=== PATIENT | female | born 1955 | race Asian ===

== ENCOUNTER 2016-12-19 09:37 | Inpatient (IN) | payer MEDICAID ==
[~2016-12-19] VITALS: Ht 144.8 cm; Wt 40.0 kg
[2016-12-19] MEDS ORDERED: SODIUM CHLORIDE 0.9% 1,000 ML IV ONE ×2 (10:15→12:00)
[2016-12-19 10:53] LABS: Basophils # (auto) 0 uL; CONDITION Y; DEFINITIVE SEE PRINTOUT; Eosinophils # (auto) 0 uL; Hematocrit 28.3 % (36.0-46.0); Hemoglobin 9.8 g/dL (12.2-16.2); Lymphocytes # (auto) 0.7 uL; Lymphocytes % (auto) 5.7 % (10.0-50.0); Mean Corpuscular Hgb Conc. 34.7 g/dL (32.0-36.0); Mean Corpuscular Volume 86.4 fL (80.0-100.0); Mean Platelet Volume 11.5 fL (7.4-10.4); Monocytes # (auto) 0.1 uL; Monocytes % (auto) 0.7 % (0.0-12.0); Neutrophils # (auto) 10.8 uL; Neutrophils % (auto) 93.6 % (37.0-80.0); Platelet Count (auto) 60 10^3/uL (140-450); Red Cell Distribution Width 13.1 % (11.6-16.0); SUSPECT SEE PRINTOUT; White Blood Cell 11.5 10^3/uL (4.4-10.8)
[2016-12-19 11:02] LABS: Albumin 1.9 g/dL (3.4-5.0); Anion Gap 14 (5-15); Calcium 7.1 mg/dL (8.5-10.1); Carbon Dioxide 20 mmol/L (21-32); Chloride 98 mmol/L (98-107); Potassium 4.3 mmol/L (3.5-5.1); Sodium 132 mmol/L (136-145)
[2016-12-19 11:05] LABS: Aspartate Aminotransferase 39 U/L (15-37); BUN/Creatinine Ratio 25.5; Blood Urea Nitrogen 69 mg/dL (7-18); GFR African American 23 mL/min; GFR Non-African American 19 mL/min; Glucose 391 mg/dL (74-106)
[2016-12-19 11:10] LABS: Alkaline Phosphatase 317 U/L (45-117); Bilirubin, Total 0.9 mg/dL (0.2-1.0); Total Protein 5.4 g/dL (6.4-8.2)
[2016-12-19 12:59] LABS: INR 1.07 (0.9-1.15); Prothrombin Time 11.7 sec (9.37-12.3)
[2016-12-19 13:00] LABS: Magnesium 2.2 mg/dL (1.6-2.6)
[2016-12-19] MEDS ORDERED: ONDANSETRON HCL 4 MG/2 ML VIAL IV ONE (13:00)
[2016-12-19 13:04] LABS: Lactic Acid w/Reflex 2.5 mmol/L (0.4-2.0)
[2016-12-19 13:05] LABS: REFLEX LACTIC ACID YES OR NO YES
[2016-12-19] MEDS: NOREPINEPHRINE BITARTRATE 250 ML IV SCH (13:40)
[2016-12-19 14:09] LABS: Urine Color Yellow (Yellow); Urine Hyaline Cast MOD /lpf (0 - 2); Urine Ketone Negative (Negative); Urine Nitrite Negative (Negative); Urine RBC 15 /hpf (0 - 4); Urine Urobilinogen Normal (Negative)
[2016-12-19 14:15] LABS: Urine Blood 1+ /uL (Negative); Urine Glucose 3+ mg/dL (Normal)
[2016-12-19 14:21] LABS: Urine Bilirubin Negative (Negative)
[2016-12-19] MEDS ORDERED: NITROGLYCERIN 0.4 MG SL TAB SL PRN (15:30)
[2016-12-19] MEDS ORDERED: TEMAZEPAM 15 MG CAP PO PRN (15:30)
[2016-12-19] MEDS ORDERED: SODIUM CHLORIDE 0.9% 2,000 ML IV ONE (15:30)
[2016-12-19] MEDS ORDERED: LORazepam 0.5 MG TAB PO PRN (15:30)
[2016-12-19] MEDS ORDERED: PANTOPRAZOLE 40 MG/10 ML VIAL IV ONE (15:30)
[2016-12-19] MEDS ORDERED: MORPHINE SULF INJ 2 MG/ML SYRINGE 1ML IV PRN (15:30)
[2016-12-19] MEDS ORDERED: DEXTROSE (50%) 50ML SYRG IV PRN (15:30)
[2016-12-19] MEDS ORDERED: cefTRIAXone 1GM/50ML D5W 50 ML IV ONE (15:30)
[2016-12-19] MEDS ORDERED: LACTULOSE 20Gm/30ML SOLN PO PRN (15:30)
[2016-12-19 15:56] LABS: Amylase 46 U/L (25-115)
[2016-12-19] MEDS: SODIUM CHLORIDE 0.9% 1,000 ML IV SCH ×2 (16:49→22:02)
[2016-12-19] MEDS: ACCU-CHEK COMFORT CURVE STRIP VI SCH ×2 (17:44→20:13)
[2016-12-19] MEDS: InsuLIN REG 1unit/0.01ml Soln (100units/ml) SC SCH ×2 (17:44→22:13)
[2016-12-19 18:47] LABS: Hematocrit 29.2 % (36.0-46.0)
[2016-12-19] MEDS: PROMETHAZINE HCL 25 MG/ML 1ML IV PRN (19:32)
[2016-12-20] VITALS (12 sets, daily range): BP systolic 81–126; BP diastolic 40–70
[2016-12-20 00:31] LABS: Hematocrit 31.6 % (36.0-46.0); Hemoglobin 10.9 g/dL (12.2-16.2)
[2016-12-20] MEDS: InsuLIN REG 1unit/0.01ml Soln (100units/ml) SC SCH ×6 (02:00→21:41)
[2016-12-20] MEDS: ACCU-CHEK COMFORT CURVE STRIP VI SCH ×6 (02:00→21:41)
[2016-12-20] MEDS: SODIUM CHLORIDE 0.9% 1,000 ML IV SCH ×3 (04:38→17:11)
[2016-12-20 06:16] LABS: CONDITION Y; DEFINITIVE SEE PRINTOUT; Hematocrit 29.9 % (36.0-46.0); Hemoglobin 10.4 g/dL (12.2-16.2); Mean Corpuscular Hemoglobin 30.8 pg (28.0-32.0); Mean Corpuscular Hgb Conc. 34.8 g/dL (32.0-36.0); Mean Corpuscular Volume 88.5 fL (80.0-100.0); Mean Platelet Volume 11.8 fL (7.4-10.4); Platelet Count (auto) 33 10^3/uL (140-450); Red Cell Distribution Width 13.1 % (11.6-16.0); SUSPECT SEE PRINTOUT; White Blood Cell 19.5 10^3/uL (4.4-10.8)
[2016-12-20 06:26] LABS: Metamyelocytes % 0; Myelocytes % 0; Promyelocytes % 0; Reactive Lymphocytes 0
[2016-12-20 06:36] LABS: Potassium 3.5 mmol/L (3.5-5.1)
[2016-12-20 06:46] LABS: Albumin 1.9 g/dL (3.4-5.0); BUN/Creatinine Ratio 37.1
[2016-12-20 06:49] LABS: Bilirubin, Total 1.3 mg/dL (0.2-1.0); Total Protein 5.7 g/dL (6.4-8.2)
[2016-12-20] MEDS ORDERED: cefTRIAXone 1GM/50ML D5W 50 ML IV SCH ×2 (09:00)
[2016-12-20] MEDS: PANTOPRAZOLE 40 MG/10 ML VIAL IV SCH (10:12)
[2016-12-20] MEDS ORDERED: LINEZOLID 600MG/300ML 300 ML IV SCH (11:00)
[2016-12-20 11:12] LABS: Temperature: 23.3 C (20.0-25.0)
[2016-12-20] MEDS: PIPERACILLIN-TAZOB 3.375GM 100 ML IV SCH ×3 (12:33→23:44)
[2016-12-20] MEDS: NOREPINEPHRINE BITARTRATE 250 ML IV SCH (13:24)
[2016-12-20] MEDS: Boost Glucose Control 8 Ounces PO SCH ×3 (14:21→21:40)
[2016-12-20 15:58] LABS: Platelet Estimate Decreased
[2016-12-20] MEDS: PROMETHAZINE HCL 25 MG/ML 1ML IV PRN (20:53)
[2016-12-21] VITALS (93 sets, daily range): BP systolic 79–133; BP diastolic 39–88
[2016-12-21] MEDS: SODIUM CHLORIDE 0.9% 1,000 ML IV SCH ×3 (00:37→18:00)
[2016-12-21] MEDS: MORPHINE SULF INJ 2 MG/ML SYRINGE 1ML IV PRN ×3 (01:12→18:30)
[2016-12-21] MEDS: PROMETHAZINE HCL 25 MG/ML 1ML IV PRN ×3 (01:27→18:30)
[2016-12-21] MEDS: ACCU-CHEK COMFORT CURVE STRIP VI SCH ×6 (01:30→23:15)
[2016-12-21] MEDS: InsuLIN REG 1unit/0.01ml Soln (100units/ml) SC SCH ×6 (01:30→23:25)
[2016-12-21 04:34] LABS: Albumin 1.5 g/dL (3.4-5.0); BUN/Creatinine Ratio 39.8; Bilirubin, Total 0.6 mg/dL (0.2-1.0); Calcium 7.1 mg/dL (8.5-10.1); Magnesium 2.3 mg/dL (1.6-2.6); Phosphorus 1.1 mg/dL (2.5-4.90); Total Protein 5.3 g/dL (6.4-8.2)
[2016-12-21 04:35] LABS: CONDITION Y; DEFINITIVE SEE PRINTOUT; Hemoglobin 10.2 g/dL (12.2-16.2); Mean Corpuscular Hemoglobin 30.3 pg (28.0-32.0); Mean Corpuscular Hgb Conc. 34.1 g/dL (32.0-36.0); Mean Corpuscular Volume 88.8 fL (80.0-100.0); Mean Platelet Volume 10.6 fL (7.4-10.4); Red Cell Distribution Width 13.4 % (11.6-16.0); SUSPECT SEE PRINTOUT; White Blood Cell 12.1 10^3/uL (4.4-10.8)
[2016-12-21 05:36] LABS: Potassium 2.9 mmol/L (3.5-5.1)
[2016-12-21 06:00] LABS: Metamyelocytes % 0; Myelocytes % 0; Platelet Count (auto) 20 10^3/uL (140-450); Promyelocytes % 0; Reactive Lymphocytes 0
[2016-12-21] MEDS ORDERED: POTASSIUM CHL 10% (20 MEQ/15ML) 15ml ORAL SOLN PO ONE (06:00)
[2016-12-21 06:02] LABS: Platelet Estimate Markedly Decreased; RBC Morphology Normal
[2016-12-21] MEDS: Boost Glucose Control 8 Ounces PO SCH ×4 (06:06→22:00)
[2016-12-21] MEDS: PIPERACILLIN-TAZOB 3.375GM 100 ML IV SCH ×3 (06:06→18:34)
[2016-12-21] MEDS: NOREPINEPHRINE BITARTRATE 250 ML IV SCH (08:00)
[2016-12-21] MEDS: PANTOPRAZOLE 40 MG/10 ML VIAL IV SCH (10:22)
[2016-12-21 16:07] LABS: Uric Acid 5.8 mg/dL (2.6-6.0)
[2016-12-22] VITALS (65 sets, daily range): BP systolic 85–146; BP diastolic 40–91
[2016-12-22] MEDS: ACCU-CHEK COMFORT CURVE STRIP VI SCH ×6 (02:00→21:35)
[2016-12-22] MEDS: InsuLIN REG 1unit/0.01ml Soln (100units/ml) SC SCH ×6 (02:00→22:12)
[2016-12-22 03:55] LABS: CONDITION Y; DEFINITIVE SEE PRINTOUT; Hematocrit 27.9 % (36.0-46.0); Hemoglobin 9.7 g/dL (12.2-16.2); Mean Corpuscular Hemoglobin 30.3 pg (28.0-32.0); Mean Corpuscular Hgb Conc. 34.8 g/dL (32.0-36.0); Mean Corpuscular Volume 87.1 fL (80.0-100.0); Mean Platelet Volume 9.9 fL (7.4-10.4); Platelet Count (auto) 24 10^3/uL (140-450); Red Cell Distribution Width 13.4 % (11.6-16.0); SUSPECT SEE PRINTOUT; White Blood Cell 10.3 10^3/uL (4.4-10.8)
[2016-12-22 04:19] LABS: Albumin 1.4 g/dL (3.4-5.0); Bilirubin, Total 0.9 mg/dL (0.2-1.0); Calcium 7.2 mg/dL (8.5-10.1); Potassium 3.1 mmol/L (3.5-5.1); Total Protein 5.4 g/dL (6.4-8.2)
[2016-12-22 04:29] LABS: Metamyelocytes % 0; Myelocytes % 0; Promyelocytes % 0; Reactive Lymphocytes 0
[2016-12-22 05:28] LABS: Hypersegmented Neutrophils Present; Platelet Estimate Markedly Decreased
[2016-12-22 05:29] LABS: RBC Morphology Normal
[2016-12-22 05:57] LABS: Vitamin B12 > 2000 pg/mL (211-911)
[2016-12-22] MEDS: Boost Glucose Control 8 Ounces PO SCH ×4 (06:00→21:35)
[2016-12-22] MEDS: PIPERACILLIN-TAZOB 3.375GM 100 ML IV SCH ×5 (06:00→23:25)
[2016-12-22] MEDS: PANTOPRAZOLE 40 MG/10 ML VIAL IV SCH (09:49)
[2016-12-22] MEDS: SODIUM CHLORIDE 0.9% 1,000 ML IV SCH ×3 (09:49→23:17)
[2016-12-22] MEDS ORDERED: metroNIDAZOLE 500 MG TAB PO ONE (10:30)
[2016-12-22] MEDS ORDERED: POTASSIUM CHLORIDE 20 MEQ, LIDOCAINE 1% (LOCAL ANESTH.) 2 ML in SODIUM CHL 0.9% 100 ML IV ONE (10:30)
[2016-12-22] MEDS: NOREPINEPHRINE BITARTRATE 250 ML IV SCH (12:18)
[2016-12-22 14:36] LABS: BUN/Creatinine Ratio 32.4; Calcium 7.2 mg/dL (8.5-10.1); Potassium 3.8 mmol/L (3.5-5.1)
[2016-12-22] MEDS: HYDROcodone-ACET 5/325MG TAB PO PRN (16:26)
[2016-12-22] MEDS: PROMETHAZINE HCL 25 MG/ML 1ML IV PRN (18:30)
[2016-12-22] MEDS: metroNIDAZOLE 500 MG TAB PO SCH (19:32)
[2016-12-23] VITALS (34 sets, daily range): BP systolic 102–144; BP diastolic 54–81
[2016-12-23] MEDS: InsuLIN REG 1unit/0.01ml Soln (100units/ml) SC SCH ×6 (01:48→22:04)
[2016-12-23] MEDS: ACCU-CHEK COMFORT CURVE STRIP VI SCH ×6 (01:48→22:04)
[2016-12-23 03:20] LABS: Basophils # (auto) 0 uL; Basophils % (auto) 0.1 % (0.0-2.0); CONDITION Y; DEFINITIVE SEE PRINTOUT; Eosinophils # (auto) 0.2 uL; Eosinophils % (auto) 1.7 % (0.0-7.0); Hematocrit 28.6 % (36.0-46.0); Hemoglobin 9.9 g/dL (12.2-16.2); Lymphocytes # (auto) 0.9 uL; Lymphocytes % (auto) 7.3 % (10.0-50.0); Mean Corpuscular Hemoglobin 30.2 pg (28.0-32.0); Mean Corpuscular Hgb Conc. 34.6 g/dL (32.0-36.0); Mean Corpuscular Volume 87.3 fL (80.0-100.0); Mean Platelet Volume 11.5 fL (7.4-10.4); Monocytes # (auto) 0.5 uL; Monocytes % (auto) 4.5 % (0.0-12.0); Neutrophils # (auto) 10.3 uL; Neutrophils % (auto) 86.4 % (37.0-80.0); Platelet Count (auto) 47 10^3/uL (140-450); White Blood Cell 11.9 10^3/uL (4.4-10.8)
[2016-12-23 04:01] LABS: Albumin 1.3 g/dL (3.4-5.0); BUN/Creatinine Ratio 30.6; Bilirubin, Total 0.5 mg/dL (0.2-1.0); Calcium 7.3 mg/dL (8.5-10.1); Potassium 3.4 mmol/L (3.5-5.1); Total Protein 5.3 g/dL (6.4-8.2)
[2016-12-23] MEDS: metroNIDAZOLE 500 MG TAB PO SCH ×3 (04:43→19:33)
[2016-12-23] MEDS: PIPERACILLIN-TAZOB 3.375GM 100 ML IV SCH ×2 (06:00→12:09)
[2016-12-23] MEDS: SODIUM CHLORIDE 0.9% 1,000 ML IV SCH ×3 (06:15→19:35)
[2016-12-23] MEDS: Boost Glucose Control 8 Ounces PO SCH ×4 (06:30→22:04)
[2016-12-23] MEDS: PROMETHAZINE HCL 25 MG/ML 1ML IV PRN ×2 (08:45→19:33)
[2016-12-23] MEDS: HYDROcodone-ACET 5/325MG TAB PO PRN ×2 (08:46→17:57)
[2016-12-23] MEDS: PANTOPRAZOLE 40 MG/10 ML VIAL IV SCH (09:47)
[2016-12-23] MEDS: NOREPINEPHRINE BITARTRATE 250 ML IV SCH (13:30)
[2016-12-23] MEDS ORDERED: cefTRIAXone 1GM/50ML D5W 50 ML IV ONE (16:30)
[2016-12-24] VITALS (7 sets, daily range): BP systolic 104–137; BP diastolic 50–72
[2016-12-24] MEDS: SODIUM CHLORIDE 0.9% 1,000 ML IV SCH ×4 (02:00→22:10)
[2016-12-24 02:06] LABS: Ceruloplasmin 43.9 mg/dL (19.0-39.0); Haptoglobin 177 mg/dL (34-200)
[2016-12-24] MEDS: ACCU-CHEK COMFORT CURVE STRIP VI SCH ×4 (02:38→14:12)
[2016-12-24] MEDS: InsuLIN REG 1unit/0.01ml Soln (100units/ml) SC SCH ×4 (02:40→14:15)
[2016-12-24] MEDS: metroNIDAZOLE 500 MG TAB PO SCH ×2 (03:52→11:27)
[2016-12-24] MEDS: Boost Glucose Control 8 Ounces PO SCH ×4 (06:13→22:00)
[2016-12-24] MEDS ORDERED: cefTRIAXone 1GM/50ML D5W 50 ML IV SCH (09:00)
[2016-12-24] MEDS: PANTOPRAZOLE 40 MG/10 ML VIAL IV SCH (09:54)
[2016-12-24] MEDS ORDERED: AMPICILLIN 250 MG CAP PO SCH (18:00)
[2016-12-24] MEDS: ACETAMINOPHEN 500 MG TAB PO PRN (21:55)
[2016-12-24] MEDS: AMOXICILLIN TRIHYDRATE 250 MG CAP PO SCH (22:07)
[2016-12-25 04:43] VITALS: BP 116/62
[2016-12-25 05:42] LABS: Basophils # (auto) 0 uL; Basophils % (auto) 0.1 % (0.0-2.0); CONDITION Y; Eosinophils # (auto) 0.2 uL; Eosinophils % (auto) 1.4 % (0.0-7.0); Hematocrit 29.1 % (36.0-46.0); Hemoglobin 9.9 g/dL (12.2-16.2); Lymphocytes # (auto) 1.2 uL; Lymphocytes % (auto) 8.8 % (10.0-50.0); Mean Corpuscular Hemoglobin 29.9 pg (28.0-32.0); Mean Corpuscular Hgb Conc. 34.2 g/dL (32.0-36.0); Mean Corpuscular Volume 87.4 fL (80.0-100.0); Mean Platelet Volume 10.7 fL (7.4-10.4); Monocytes # (auto) 0.6 uL; Monocytes % (auto) 4.1 % (0.0-12.0); Neutrophils # (auto) 11.4 uL; Neutrophils % (auto) 85.6 % (37.0-80.0); Platelet Count (auto) 120 10^3/uL (140-450); Red Cell Distribution Width 13.3 % (11.6-16.0); White Blood Cell 13.4 10^3/uL (4.4-10.8)
[2016-12-25 05:59] LABS: BUN/Creatinine Ratio 22.9; Calcium 6.8 mg/dL (8.5-10.1); Potassium 3.5 mmol/L (3.5-5.1)
[2016-12-25] MEDS: SODIUM CHLORIDE 0.9% 1,000 ML IV SCH ×2 (06:12→11:17)
[2016-12-25] MEDS: AMOXICILLIN TRIHYDRATE 250 MG CAP PO SCH ×2 (06:12→13:39)
[2016-12-25] MEDS: Boost Glucose Control 8 Ounces PO SCH ×4 (06:12→22:31)
[2016-12-25 09:00] VITALS: BP 140/72
[2016-12-25 13:00] VITALS: BP 132/69
[2016-12-25] MEDS ORDERED: POTASSIUM CHL 20 Meq TABLET PO ONE (14:30)
[2016-12-25] MEDS ORDERED: ALBUMIN 25% 100 ML IV ONE (14:30)
[2016-12-25] MEDS ORDERED: FUROSEMIDE 40 MG/4 ML VIAL IV ONE (14:30)
[2016-12-25] MEDS ORDERED: DEXTROSE (50%) 50ML SYRG IV PRN (15:00)
[2016-12-25] MEDS: cefTRIAXone 1GM/50ML D5W 50 ML IV SCH (15:35)
[2016-12-25] MEDS ORDERED: metroNIDAZOLE 500MG/100ML 100 ML IV SCH (16:00)
[2016-12-25] MEDS: LIDOCAINE VISCOUS 2% 15ML UD MT PRN ×2 (16:13→22:17)
[2016-12-25 17:00] VITALS: BP 135/73
[2016-12-25] MEDS: ACCU-CHEK COMFORT CURVE STRIP VI SCH (17:28)
[2016-12-25] MEDS: InsuLIN REG 1unit/0.01ml Soln (100units/ml) SC SCH (17:28)
[2016-12-25] MEDS: PRO-STAT 64 30ML PO SCH (17:29)
[2016-12-25 21:36] VITALS: BP 148/76
[2016-12-25] MEDS: metroNIDAZOLE 500MG/100ML 100 ML IV SCH (22:16)
[2016-12-25] MEDS: INSULIN DETEMIR(LEVEMIR) 1unit/0.01ml Soln (100units/ml) SC SCH (22:32)
[2016-12-26] MEDS: InsuLIN REG 1unit/0.01ml Soln (100units/ml) SC SCH ×4 (00:26→17:53)
[2016-12-26] MEDS: ACCU-CHEK COMFORT CURVE STRIP VI SCH ×4 (00:26→17:53)
[2016-12-26] MEDS: LIDOCAINE VISCOUS 2% 15ML UD MT PRN (02:50)
[2016-12-26 04:34] VITALS: BP 145/67
[2016-12-26] MEDS: Boost Glucose Control 8 Ounces PO SCH ×4 (06:00→22:00)
[2016-12-26 06:15] LABS: BUN/Creatinine Ratio 18.6; Calcium 7.5 mg/dL (8.5-10.1)
[2016-12-26 06:24] LABS: Basophils # (auto) 0 uL; CONDITION Y; Eosinophils # (auto) 0 uL; Eosinophils % (auto) 0.3 % (0.0-7.0); Hematocrit 29.1 % (36.0-46.0); Hemoglobin 10.3 g/dL (12.2-16.2); Lymphocytes # (auto) 1.1 uL; Lymphocytes % (auto) 5.9 % (10.0-50.0); Mean Corpuscular Hemoglobin 30.2 pg (28.0-32.0); Mean Corpuscular Hgb Conc. 35.3 g/dL (32.0-36.0); Mean Corpuscular Volume 85.5 fL (80.0-100.0); Mean Platelet Volume 10.3 fL (7.4-10.4); Monocytes # (auto) 0.3 uL; Monocytes % (auto) 1.5 % (0.0-12.0); Neutrophils # (auto) 16.4 uL; Neutrophils % (auto) 92.3 % (37.0-80.0); Platelet Count (auto) 219 10^3/uL (140-450); White Blood Cell 17.7 10^3/uL (4.4-10.8)
[2016-12-26] MEDS: metroNIDAZOLE 500MG/100ML 100 ML IV SCH ×3 (06:41→22:06)
[2016-12-26] MEDS: INSULIN DETEMIR(LEVEMIR) 1unit/0.01ml Soln (100units/ml) SC SCH ×2 (06:54→22:00)
[2016-12-26] MEDS ORDERED: POTASSIUM CHL 20 Meq TABLET PO ONE (07:45)
[2016-12-26 07:55] VITALS: BP 133/61
[2016-12-26] MEDS: PRO-STAT 64 30ML PO SCH ×2 (08:00→17:53)
[2016-12-26] MEDS: CHOLECALCIFEROL (VITD3) 1,000 UNIT TAB PO SCH (09:44)
[2016-12-26] MEDS: cefTRIAXone 1GM/50ML D5W 50 ML IV SCH (09:44)
[2016-12-26] MEDS ORDERED: ENOXAPARIN SOD 40 MG/0.4 ML SYRINGE SC ONE (11:00)
[2016-12-26 11:30] VITALS: BP 145/67
[2016-12-26] MEDS ORDERED: VANCOMYCIN HCL 125MG/5ML ORAL SOL PO SCH (12:00)
[2016-12-26] MEDS: VANCOMYCIN HCL 125MG/5ML ORAL SOL PO SCH ×3 (12:11→22:06)
[2016-12-26 16:15] VITALS: BP 139/68
[2016-12-26 21:40] VITALS: BP 136/71
[2016-12-27] MEDS: ACCU-CHEK COMFORT CURVE STRIP VI SCH ×4 (00:18→18:16)
[2016-12-27 05:04] VITALS: BP 133/59
[2016-12-27 06:20] LABS: Basophils # (auto) 0 uL; CONDITION Y; Eosinophils # (auto) 0 uL; Eosinophils % (auto) 0.3 % (0.0-7.0); Hemoglobin 9.6 g/dL (12.2-16.2); Lymphocytes % (auto) 7.3 % (10.0-50.0); Mean Corpuscular Hemoglobin 30.5 pg (28.0-32.0); Mean Corpuscular Hgb Conc. 35.6 g/dL (32.0-36.0); Mean Corpuscular Volume 85.6 fL (80.0-100.0); Mean Platelet Volume 9.7 fL (7.4-10.4); Monocytes # (auto) 0.5 uL; Monocytes % (auto) 3.5 % (0.0-12.0); Neutrophils # (auto) 12.4 uL; Neutrophils % (auto) 88.9 % (37.0-80.0); Platelet Count (auto) 237 10^3/uL (140-450); Red Cell Distribution Width 12.9 % (11.6-16.0)
[2016-12-27] MEDS: InsuLIN REG 1unit/0.01ml Soln (100units/ml) SC SCH ×5 (06:30→18:16)
[2016-12-27] MEDS: metroNIDAZOLE 500MG/100ML 100 ML IV SCH (06:35)
[2016-12-27] MEDS: VANCOMYCIN HCL 125MG/5ML ORAL SOL PO SCH ×4 (06:36→22:18)
[2016-12-27] MEDS: Boost Glucose Control 8 Ounces PO SCH ×4 (06:36→22:17)
[2016-12-27 06:40] LABS: Calcium 7.1 mg/dL (8.5-10.1); Potassium 3.8 mmol/L (3.5-5.1)
[2016-12-27 06:42] LABS: BUN/Creatinine Ratio 15.4
[2016-12-27] MEDS: INSULIN DETEMIR(LEVEMIR) 1unit/0.01ml Soln (100units/ml) SC SCH ×2 (06:48→22:00)
[2016-12-27] MEDS: PRO-STAT 64 30ML PO SCH ×2 (08:00→17:51)
[2016-12-27 09:00] VITALS: BP 150/75
[2016-12-27] MEDS: cefTRIAXone 1GM/50ML D5W 50 ML IV SCH (09:38)
[2016-12-27] MEDS: CHOLECALCIFEROL (VITD3) 1,000 UNIT TAB PO SCH (09:39)
[2016-12-27] MEDS: ENOXAPARIN SOD 40 MG/0.4 ML SYRINGE SC SCH (09:39)
[2016-12-27 13:00] VITALS: BP 164/77
[2016-12-27] MEDS: metroNIDAZOLE 500 MG TAB PO SCH ×2 (15:00→22:17)
[2016-12-27 17:32] VITALS: BP 148/76
[2016-12-27 22:16] VITALS: BP 153/68
[2016-12-27] MEDS: HYDROcodone-ACET 5/325MG TAB PO PRN (22:39)
[2016-12-28] MEDS: ACCU-CHEK COMFORT CURVE STRIP VI SCH ×5 (00:14→23:36)
[2016-12-28] MEDS: MORPHINE SULF INJ 2 MG/ML SYRINGE 1ML IV PRN ×2 (00:15→09:14)
[2016-12-28 05:14] VITALS: BP 149/75
[2016-12-28 05:38] LABS: Basophils # (auto) 0 uL; Basophils % (auto) 0.3 % (0.0-2.0); CONDITION Y; Eosinophils # (auto) 0 uL; Eosinophils % (auto) 0.2 % (0.0-7.0); Hematocrit 28.1 % (36.0-46.0); Hemoglobin 9.7 g/dL (12.2-16.2); Lymphocytes # (auto) 1.1 uL; Lymphocytes % (auto) 7.7 % (10.0-50.0); Mean Corpuscular Hemoglobin 30.1 pg (28.0-32.0); Mean Corpuscular Hgb Conc. 34.4 g/dL (32.0-36.0); Mean Corpuscular Volume 87.5 fL (80.0-100.0); Mean Platelet Volume 9.7 fL (7.4-10.4); Monocytes # (auto) 0.5 uL; Monocytes % (auto) 3.8 % (0.0-12.0); Neutrophils # (auto) 12.1 uL; Platelet Count (auto) 288 10^3/uL (140-450); White Blood Cell 13.7 10^3/uL (4.4-10.8)
[2016-12-28 05:57] LABS: Albumin 1.6 g/dL (3.4-5.0); Calcium 7.2 mg/dL (8.5-10.1); Potassium 3.9 mmol/L (3.5-5.1)
[2016-12-28 05:59] LABS: BUN/Creatinine Ratio 13.5
[2016-12-28 06:02] LABS: Bilirubin, Total 0.3 mg/dL (0.2-1.0); Total Protein 5.5 g/dL (6.4-8.2)
[2016-12-28] MEDS: VANCOMYCIN HCL 125MG/5ML ORAL SOL PO SCH ×4 (06:27→21:41)
[2016-12-28] MEDS: InsuLIN REG 1unit/0.01ml Soln (100units/ml) SC SCH ×5 (06:27→23:37)
[2016-12-28] MEDS: metroNIDAZOLE 500 MG TAB PO SCH ×3 (06:27→21:41)
[2016-12-28] MEDS: INSULIN DETEMIR(LEVEMIR) 1unit/0.01ml Soln (100units/ml) SC SCH ×2 (06:35→22:15)
[2016-12-28] MEDS: ENOXAPARIN SOD 40 MG/0.4 ML SYRINGE SC SCH (09:13)
[2016-12-28] MEDS: PROMETHAZINE HCL 25 MG/ML 1ML IV PRN ×2 (09:13→15:35)
[2016-12-28] MEDS: CHOLECALCIFEROL (VITD3) 1,000 UNIT TAB PO SCH (09:14)
[2016-12-28] MEDS: cefTRIAXone 1GM/50ML D5W 50 ML IV SCH (09:15)
[2016-12-28] MEDS: Boost Glucose Control 8 Ounces PO SCH ×4 (09:33→21:40)
[2016-12-28] MEDS: PRO-STAT 64 30ML PO SCH ×2 (09:34→18:09)
[2016-12-28 12:00] VITALS: BP 149/70
[2016-12-28 17:00] VITALS: BP 140/64
[2016-12-28 22:00] VITALS: BP 143/69
[2016-12-29 04:30] VITALS: BP 128/67
[2016-12-29] MEDS: metroNIDAZOLE 500 MG TAB PO SCH ×3 (05:24→22:21)
[2016-12-29] MEDS: Boost Glucose Control 8 Ounces PO SCH ×5 (05:25→22:00)
[2016-12-29] MEDS: VANCOMYCIN HCL 125MG/5ML ORAL SOL PO SCH ×4 (05:25→22:21)
[2016-12-29] MEDS: InsuLIN REG 1unit/0.01ml Soln (100units/ml) SC SCH ×3 (06:00→18:00)
[2016-12-29] MEDS: ACCU-CHEK COMFORT CURVE STRIP VI SCH ×3 (06:07→18:00)
[2016-12-29] MEDS: INSULIN DETEMIR(LEVEMIR) 1unit/0.01ml Soln (100units/ml) SC SCH ×2 (06:07→22:22)
[2016-12-29 06:14] LABS: Basophils # (auto) 0 uL; CONDITION Y; Eosinophils # (auto) 0 uL; Eosinophils % (auto) 0.1 % (0.0-7.0); Hematocrit 29.3 % (36.0-46.0); Lymphocytes # (auto) 0.9 uL; Lymphocytes % (auto) 5.9 % (10.0-50.0); Mean Corpuscular Hemoglobin 30.1 pg (28.0-32.0); Mean Corpuscular Hgb Conc. 34.2 g/dL (32.0-36.0); Mean Corpuscular Volume 88.1 fL (80.0-100.0); Mean Platelet Volume 8.7 fL (7.4-10.4); Monocytes # (auto) 0.5 uL; Monocytes % (auto) 3.6 % (0.0-12.0); Neutrophils # (auto) 13.5 uL; Neutrophils % (auto) 90.4 % (37.0-80.0); Platelet Count (auto) 339 10^3/uL (140-450); Red Cell Distribution Width 12.6 % (11.6-16.0); White Blood Cell 14.9 10^3/uL (4.4-10.8)
[2016-12-29 06:37] LABS: Potassium 3.3 mmol/L (3.5-5.1)
[2016-12-29 06:40] LABS: Albumin 1.7 g/dL (3.4-5.0); BUN/Creatinine Ratio 9.6; Calcium 7.4 mg/dL (8.5-10.1)
[2016-12-29 06:43] LABS: Bilirubin, Total 0.3 mg/dL (0.2-1.0); Total Protein 5.8 g/dL (6.4-8.2)
[2016-12-29] MEDS: PRO-STAT 64 30ML PO SCH ×2 (08:00→18:00)
[2016-12-29] MEDS ORDERED: FLUCONAZOLE 100 MG TAB PO ONE (08:30)
[2016-12-29] MEDS ORDERED: POTASSIUM CHL 10 Meq TABLET PO ONE (09:15)
[2016-12-29] MEDS: cefTRIAXone 1GM/50ML D5W 50 ML IV SCH (09:17)
[2016-12-29 09:43] VITALS: BP 123/64
[2016-12-29] MEDS: ASCORBIC ACID 500 MG TAB PO SCH ×2 (10:54→22:21)
[2016-12-29] MEDS: ENOXAPARIN SOD 40 MG/0.4 ML SYRINGE SC SCH (10:54)
[2016-12-29] MEDS: FLUCONAZOLE 200MG/100ML 100 ML IV SCH (10:54)
[2016-12-29] MEDS: CHOLECALCIFEROL (VITD3) 1,000 UNIT TAB PO SCH (10:55)
[2016-12-29 12:13] VITALS: BP 147/74
[2016-12-29 17:16] VITALS: BP 152/71
[2016-12-29 21:19] VITALS: BP 144/75
[2016-12-29] MEDS: LIDOCAINE VISCOUS 2% 15ML UD MT PRN (23:25)
[2016-12-30] MEDS: ACCU-CHEK COMFORT CURVE STRIP VI SCH ×5 (00:03→23:52)
[2016-12-30 04:53] VITALS: BP 141/68
[2016-12-30 05:17] LABS: Basophils # (auto) 0 uL; Basophils % (auto) 0.4 % (0.0-2.0); CONDITION Y; Eosinophils # (auto) 0 uL; Eosinophils % (auto) 0.2 % (0.0-7.0); Hematocrit 28.9 % (36.0-46.0); Lymphocytes # (auto) 1.6 uL; Lymphocytes % (auto) 12.5 % (10.0-50.0); Mean Corpuscular Hemoglobin 30.2 pg (28.0-32.0); Mean Corpuscular Hgb Conc. 34.7 g/dL (32.0-36.0); Mean Corpuscular Volume 87.1 fL (80.0-100.0); Mean Platelet Volume 8.3 fL (7.4-10.4); Monocytes # (auto) 0.7 uL; Monocytes % (auto) 5.8 % (0.0-12.0); Neutrophils # (auto) 10.1 uL; Neutrophils % (auto) 81.1 % (37.0-80.0); Platelet Count (auto) 415 10^3/uL (140-450); Red Cell Distribution Width 12.8 % (11.6-16.0); White Blood Cell 12.4 10^3/uL (4.4-10.8)
[2016-12-30] MEDS: metroNIDAZOLE 500 MG TAB PO SCH ×3 (05:30→21:08)
[2016-12-30] MEDS: Boost Glucose Control 8 Ounces PO SCH ×4 (05:30→21:08)
[2016-12-30] MEDS: VANCOMYCIN HCL 125MG/5ML ORAL SOL PO SCH ×4 (05:30→21:08)
[2016-12-30 05:35] LABS: Albumin 1.9 g/dL (3.4-5.0); Calcium 7.7 mg/dL (8.5-10.1); Potassium 3.4 mmol/L (3.5-5.1)
[2016-12-30 05:37] LABS: BUN/Creatinine Ratio 7.1
[2016-12-30 05:40] LABS: Bilirubin, Total 0.3 mg/dL (0.2-1.0); Total Protein 6.2 g/dL (6.4-8.2)
[2016-12-30] MEDS: InsuLIN REG 1unit/0.01ml Soln (100units/ml) SC SCH ×5 (06:00→23:52)
[2016-12-30] MEDS: INSULIN DETEMIR(LEVEMIR) 1unit/0.01ml Soln (100units/ml) SC SCH (06:20)
[2016-12-30] MEDS: PRO-STAT 64 30ML PO SCH ×2 (08:00→17:48)
[2016-12-30 09:00] VITALS: BP 130/68
[2016-12-30] MEDS: cefTRIAXone 1GM/50ML D5W 50 ML IV SCH (09:38)
[2016-12-30] MEDS: ENOXAPARIN SOD 40 MG/0.4 ML SYRINGE SC SCH (09:47)
[2016-12-30] MEDS: CHOLECALCIFEROL (VITD3) 1,000 UNIT TAB PO SCH (09:48)
[2016-12-30] MEDS: ASCORBIC ACID 500 MG TAB PO SCH ×2 (09:48→21:09)
[2016-12-30] MEDS ORDERED: TEMAZEPAM 15 MG CAP PO PRN (11:45)
[2016-12-30] MEDS ORDERED: LORazepam 0.5 MG TAB PO PRN (11:45)
[2016-12-30] MEDS: FLUCONAZOLE 200MG/100ML 100 ML IV SCH (11:50)
[2016-12-30] MEDS ORDERED: FUROSEMIDE 40 MG/4 ML VIAL IV ONE (12:00)
[2016-12-30] MEDS ORDERED: POTASSIUM CHL 20 Meq TABLET PO ONE (12:00)
[2016-12-30 12:22] VITALS: BP 142/66
[2016-12-30 12:35] LABS: B-Type Natriuretic Peptide 193.04 pg/mL (0-100)
[2016-12-30] MEDS: ALBUMIN 25% 100 ML IV SCH ×2 (12:58→14:38)
[2016-12-30 13:10] LABS: Temperature: 23.3 C (20.0-25.0)
[2016-12-30] MEDS ORDERED: SPIRONOLACTONE 25 MG TAB PO ONE (13:45)
[2016-12-30] MEDS ORDERED: DIGOXIN 0.125 MG TAB PO ONE (16:45)
[2016-12-30 17:02] VITALS: BP 145/67
[2016-12-30] MEDS: LIDOCAINE VISCOUS 2% 15ML UD MT PRN ×2 (17:02→21:09)
[2016-12-30 21:54] VITALS: BP 131/61
[2016-12-31 04:59] VITALS: BP 139/69
[2016-12-31] MEDS: Boost Glucose Control 8 Ounces PO SCH ×4 (06:00→21:37)
[2016-12-31] MEDS: metroNIDAZOLE 500 MG TAB PO SCH ×3 (06:07→21:36)
[2016-12-31] MEDS: ACCU-CHEK COMFORT CURVE STRIP VI SCH ×4 (06:07→23:38)
[2016-12-31] MEDS: VANCOMYCIN HCL 125MG/5ML ORAL SOL PO SCH ×4 (06:07→21:37)
[2016-12-31 06:09] LABS: BUN/Creatinine Ratio 8.5; Calcium 7.8 mg/dL (8.5-10.1); Potassium 4.1 mmol/L (3.5-5.1)
[2016-12-31] MEDS: InsuLIN REG 1unit/0.01ml Soln (100units/ml) SC SCH ×5 (06:20→23:38)
[2016-12-31] MEDS: INSULIN DETEMIR(LEVEMIR) 1unit/0.01ml Soln (100units/ml) SC SCH (06:21)
[2016-12-31] MEDS: PROMETHAZINE HCL 25 MG/ML 1ML IV PRN (06:28)
[2016-12-31 08:38] VITALS: BP 127/63
[2016-12-31] MEDS: FLUCONAZOLE 200MG/100ML 100 ML IV SCH (09:27)
[2016-12-31] MEDS: cefTRIAXone 1GM/50ML D5W 50 ML IV SCH (09:27)
[2016-12-31] MEDS: ASCORBIC ACID 500 MG TAB PO SCH ×2 (09:32→21:36)
[2016-12-31] MEDS: FUROSEMIDE 20 MG/2 ML VIAL IV SCH (09:32)
[2016-12-31] MEDS: ENOXAPARIN SOD 40 MG/0.4 ML SYRINGE SC SCH (09:32)
[2016-12-31] MEDS: CHOLECALCIFEROL (VITD3) 1,000 UNIT TAB PO SCH (09:33)
[2016-12-31] MEDS: DIGOXIN 0.125 MG TAB PO SCH (09:33)
[2016-12-31] MEDS: SPIRONOLACTONE 25 MG TAB PO SCH (09:34)
[2016-12-31] MEDS: POTASSIUM CHL 20 Meq TABLET PO SCH (09:34)
[2016-12-31] MEDS: PRO-STAT 64 30ML PO SCH ×2 (09:46→17:20)
[2016-12-31] MEDS: metFORMIN HYDROCHLORIDE 500 MG TAB PO SCH ×2 (10:00→17:40)
[2016-12-31 13:00] VITALS: BP 142/72
[2016-12-31] MEDS ORDERED: cefTRIAXone 1GM/50ML D5W 50 ML IV ONE (14:30)
[2016-12-31 16:53] VITALS: BP 139/73
[2016-12-31 21:31] VITALS: BP 155/80
[2017-01-01 04:48] VITALS: BP 111/58
[2017-01-01] MEDS: Boost Glucose Control 8 Ounces PO SCH ×4 (06:00→21:24)
[2017-01-01 06:05] LABS: Basophils # (auto) 0 uL; Basophils % (auto) 0.3 % (0.0-2.0); CONDITION Y; Eosinophils # (auto) 0 uL; Hemoglobin 9.5 g/dL (12.2-16.2); Lymphocytes # (auto) 0.8 uL; Lymphocytes % (auto) 5.8 % (10.0-50.0); Mean Corpuscular Hemoglobin 30.8 pg (28.0-32.0); Mean Corpuscular Hgb Conc. 35.1 g/dL (32.0-36.0); Mean Corpuscular Volume 87.6 fL (80.0-100.0); Mean Platelet Volume 8.5 fL (7.4-10.4); Monocytes # (auto) 0.6 uL; Monocytes % (auto) 4.2 % (0.0-12.0); Neutrophils # (auto) 12.8 uL; Neutrophils % (auto) 89.7 % (37.0-80.0); Platelet Count (auto) 410 10^3/uL (140-450); Red Cell Distribution Width 12.8 % (11.6-16.0); White Blood Cell 14.2 10^3/uL (4.4-10.8)
[2017-01-01] MEDS: ACCU-CHEK COMFORT CURVE STRIP VI SCH ×4 (06:20→23:28)
[2017-01-01] MEDS: metroNIDAZOLE 500 MG TAB PO SCH ×3 (06:20→21:17)
[2017-01-01] MEDS: VANCOMYCIN HCL 125MG/5ML ORAL SOL PO SCH ×4 (06:20→21:24)
[2017-01-01] MEDS: metFORMIN HYDROCHLORIDE 500 MG TAB PO SCH ×2 (06:27→18:00)
[2017-01-01] MEDS: InsuLIN REG 1unit/0.01ml Soln (100units/ml) SC SCH ×4 (06:27→23:28)
[2017-01-01] MEDS: INSULIN DETEMIR(LEVEMIR) 1unit/0.01ml Soln (100units/ml) SC SCH (06:28)
[2017-01-01 06:33] LABS: BUN/Creatinine Ratio 9.1; Calcium 7.9 mg/dL (8.5-10.1)
[2017-01-01] MEDS: PRO-STAT 64 30ML PO SCH ×2 (08:00→18:27)
[2017-01-01] MEDS: ACETAMINOPHEN 500 MG TAB PO PRN ×2 (08:25→21:42)
[2017-01-01] MEDS ORDERED: cefTRIAXone 1GM/50ML D5W 50 ML IV SCH (09:00)
[2017-01-01 09:28] VITALS: BP 110/59
[2017-01-01] MEDS: FLUCONAZOLE 200MG/100ML 100 ML IV SCH (10:50)
[2017-01-01] MEDS: ASCORBIC ACID 500 MG TAB PO SCH ×2 (10:51→21:17)
[2017-01-01] MEDS: POTASSIUM CHL 20 Meq TABLET PO SCH (10:51)
[2017-01-01] MEDS: SPIRONOLACTONE 25 MG TAB PO SCH (10:51)
[2017-01-01] MEDS: FUROSEMIDE 20 MG/2 ML VIAL IV SCH (10:52)
[2017-01-01] MEDS: ENOXAPARIN SOD 40 MG/0.4 ML SYRINGE SC SCH (10:52)
[2017-01-01] MEDS: CHOLECALCIFEROL (VITD3) 1,000 UNIT TAB PO SCH (10:53)
[2017-01-01] MEDS: DIGOXIN 0.125 MG TAB PO SCH (10:53)
[2017-01-01 13:00] VITALS: BP 110/63
[2017-01-01] MEDS ORDERED: FUROSEMIDE 20 MG/2 ML VIAL IV ONE (14:15)
[2017-01-01 17:02] VITALS: BP 118/62
[2017-01-01] MEDS: HYDROcodone-ACET 5/325MG TAB PO PRN (17:54)
[2017-01-01 22:00] VITALS: BP 132/70
[2017-01-02] VITALS (11 sets, daily range): BP systolic 110–185; BP diastolic 59–124
[2017-01-02] MEDS: HYDROcodone-ACET 5/325MG TAB PO PRN (02:27)
[2017-01-02] MEDS: VANCOMYCIN HCL 125MG/5ML ORAL SOL PO SCH ×4 (05:41→23:29)
[2017-01-02] MEDS: Boost Glucose Control 8 Ounces PO SCH (05:42)
[2017-01-02] MEDS: metroNIDAZOLE 500 MG TAB PO SCH ×3 (05:42→23:28)
[2017-01-02] MEDS: InsuLIN REG 1unit/0.01ml Soln (100units/ml) SC SCH ×4 (06:00→17:46)
[2017-01-02] MEDS: ACCU-CHEK COMFORT CURVE STRIP VI SCH ×3 (06:03→17:26)
[2017-01-02] MEDS: INSULIN DETEMIR(LEVEMIR) 1unit/0.01ml Soln (100units/ml) SC SCH (06:51)
[2017-01-02] MEDS: metFORMIN HYDROCHLORIDE 500 MG TAB PO SCH (07:05)
[2017-01-02] MEDS: ACETAMINOPHEN 500 MG TAB PO PRN ×2 (08:22→18:14)
[2017-01-02] MEDS: FLUCONAZOLE 200MG/100ML 100 ML IV SCH (08:22)
[2017-01-02] MEDS: PRO-STAT 64 30ML PO SCH ×2 (08:22→17:27)
[2017-01-02] MEDS ORDERED: LABETALOL HCL 5 MG/ML ML 20ML VIAL IV ONE (08:30)
[2017-01-02 09:41] LABS: Urine Bilirubin Negative (Negative); Urine Blood Negative /uL (Negative); Urine Color Yellow (Yellow); Urine Glucose TRACE mg/dL (Normal); Urine Ketone TRACE (Negative); Urine Nitrite Negative (Negative); Urine RBC 2 /hpf (0 - 4); Urine Squamous Epithelial Cell MANY /hpf (<5); Urine Urobilinogen Normal (Negative)
[2017-01-02] MEDS: ASCORBIC ACID 500 MG TAB PO SCH ×2 (10:00→23:28)
[2017-01-02] MEDS: CHOLECALCIFEROL (VITD3) 1,000 UNIT TAB PO SCH (10:00)
[2017-01-02 10:35] LABS: CONDITION Y; Hematocrit 27.9 % (36.0-46.0); Hemoglobin 9.8 g/dL (12.2-16.2); Mean Corpuscular Hemoglobin 30.5 pg (28.0-32.0); Mean Corpuscular Volume 87.1 fL (80.0-100.0); Mean Platelet Volume 8.4 fL (7.4-10.4); Platelet Count (auto) 413 10^3/uL (140-450); Red Cell Distribution Width 12.8 % (11.6-16.0); SUSPECT SEE PRINTOUT; White Blood Cell 11.8 10^3/uL (4.4-10.8)
[2017-01-02 10:36] LABS: Metamyelocytes % 0; Myelocytes % 0; Promyelocytes % 0; Reactive Lymphocytes 0
[2017-01-02 10:51] LABS: Albumin 2.5 g/dL (3.4-5.0); BUN/Creatinine Ratio 10.3; Calcium 7.9 mg/dL (8.5-10.1); Potassium 3.9 mmol/L (3.5-5.1)
[2017-01-02 10:54] LABS: Bilirubin, Total 0.4 mg/dL (0.2-1.0); Total Protein 6.5 g/dL (6.4-8.2)
[2017-01-02 10:59] LABS: Platelet Estimate Adequate
[2017-01-02] MEDS ORDERED: HYOSCYAMINE SULF 0.125 MG TAB PO PRN (12:15)
[2017-01-02] MEDS: PIPERACILLIN-TAZOB 3.375GM 100 ML IV SCH ×3 (12:26→23:29)
[2017-01-02] MEDS: ENOXAPARIN SOD 40 MG/0.4 ML SYRINGE SC SCH (12:27)
[2017-01-02] MEDS ORDERED: GASTROGRAFIN 30 ML SOL ONE (12:52)
[2017-01-02] MEDS: PROMETHAZINE HCL 25 MG/ML 1ML IV PRN (17:26)
[2017-01-02] MEDS ORDERED: FUROSEMIDE 20 MG/2 ML VIAL IV ONE (19:15)
[2017-01-02] MEDS ORDERED: PPN PER PHARMACY 0 ML IV SCH (19:30)
[2017-01-02] MEDS ORDERED: CLINIMIX PER PHARMACY IV NR ×4 (20:00)
[2017-01-02 20:21] LABS: Allen Test Yes; Base Excess 4.2 mmol/L (-2.0-2.0); Blood 02Sat 95.1 % (96-100); Blood COHb 0.3 % (0.5-1.5); Blood MetHb 0.3 % (0.0-1.5); HCO3 27.7 mmol/L (22-26.0); HHb 4.9 % (0.0-5.0); MODE NASAL CANNULA; O2Hb 94.5 % (94.0-97.0); PCO2 36.8 mmHg (35.0-45.0); PCO2(T) 37.3 mmHg (35.0-45.0); PO2 80.8 mmHg (80.0-100.0); PO2(T) 82.4 mmHg (80.0-100.0); Room 0201T; Sample Type Arterial; pH 7.494 (7.350-7.450)
[2017-01-02] MEDS: PANTOPRAZOLE 40 MG TAB PO SCH (23:28)
[2017-01-03] VITALS: BP 128/60
[2017-01-03] MEDS ORDERED: ACETAMINOPHEN 325 MG RECT SUPP PR PRN (00:30)
[2017-01-03] MEDS: metroNIDAZOLE 500 MG TAB PO SCH ×3 (06:00→21:29)
[2017-01-03] MEDS: InsuLIN REG 1unit/0.01ml Soln (100units/ml) SC SCH ×5 (06:00→23:46)
[2017-01-03] MEDS: PIPERACILLIN-TAZOB 3.375GM 100 ML IV SCH ×4 (06:00→23:46)
[2017-01-03] MEDS: VANCOMYCIN HCL 125MG/5ML ORAL SOL PO SCH ×4 (06:00→21:29)
[2017-01-03] MEDS: ACCU-CHEK COMFORT CURVE STRIP VI SCH ×5 (06:00→23:46)
[2017-01-03 06:16] LABS: Basophils # (auto) 0.1 uL; Basophils % (auto) 0.9 % (0.0-2.0); CONDITION Y; Eosinophils # (auto) 0 uL; Eosinophils % (auto) 0.6 % (0.0-7.0); Hematocrit 24.2 % (36.0-46.0); Hemoglobin 8.6 g/dL (12.2-16.2); Lymphocytes # (auto) 1.3 uL; Lymphocytes % (auto) 14.2 % (10.0-50.0); Mean Corpuscular Hemoglobin 31.4 pg (28.0-32.0); Mean Corpuscular Hgb Conc. 35.7 g/dL (32.0-36.0); Mean Corpuscular Volume 87.8 fL (80.0-100.0); Mean Platelet Volume 8.4 fL (7.4-10.4); Monocytes # (auto) 0.7 uL; Monocytes % (auto) 7.6 % (0.0-12.0); Neutrophils # (auto) 6.8 uL; Neutrophils % (auto) 76.7 % (37.0-80.0); Platelet Count (auto) 288 10^3/uL (140-450); Red Cell Distribution Width 13.2 % (11.6-16.0); White Blood Cell 8.9 10^3/uL (4.4-10.8)
[2017-01-03 06:43] LABS: Albumin 2.1 g/dL (3.4-5.0); BUN/Creatinine Ratio 10.8; Bilirubin, Total 0.4 mg/dL (0.2-1.0); Calcium 7.7 mg/dL (8.5-10.1); Phosphorus 2.3 mg/dL (2.5-4.90); Potassium 3.9 mmol/L (3.5-5.1)
[2017-01-03] MEDS ORDERED: LIDOCAINE VISCOUS 2% 15ML UD ONE (07:30)
[2017-01-03] MEDS ORDERED: SODIUM CHLORIDE LOCK 10 ML ONE (07:30)
[2017-01-03] MEDS ORDERED: diphenhdrAMINE HCL 50 MG/1 ML VL ONE (07:31)
[2017-01-03] MEDS: PRO-STAT 64 30ML PO SCH ×2 (08:00→18:03)
[2017-01-03 08:03] LABS: INR 1.24 (0.9-1.15); Partial Thromboplastin Time 27.8 sec (22.64-33.71); Prothrombin Time 13.6 sec (9.37-12.3)
[2017-01-03] MEDS ORDERED: SODIUM PHOSP 20MEQ(15MMOL) IN NS 100 ML IV ONE (09:30)
[2017-01-03] MEDS: CHOLECALCIFEROL (VITD3) 1,000 UNIT TAB PO SCH (10:00)
[2017-01-03] MEDS: PANTOPRAZOLE 40 MG TAB PO SCH ×2 (10:00→21:29)
[2017-01-03] MEDS: ENOXAPARIN SOD 40 MG/0.4 ML SYRINGE SC SCH (10:00)
[2017-01-03] MEDS: ASCORBIC ACID 500 MG TAB PO SCH ×2 (10:00→21:29)
[2017-01-03] MEDS: FLUCONAZOLE 200MG/100ML 100 ML IV SCH (10:27)
[2017-01-03] MEDS ORDERED: LACTULOSE 20Gm/30ML SOLN PO PRN (11:45)
[2017-01-03 11:59] VITALS: BP 119/62
[2017-01-03] MEDS: fentaNYL CITRATE 100 MCG/2 ML VL ONE ×2 (13:43→13:46)
[2017-01-03] MEDS: MIDAZOLAM HCL 5 MG/ML-1ML VIAL ONE ×2 (13:43→13:46)
[2017-01-03] MEDS ORDERED: DIGOXIN 0.125 MG TAB PO ONE (15:30)
[2017-01-03 16:00] VITALS: BP 112/61
[2017-01-03] MEDS: SPIRONOLACTONE 25 MG TAB PO SCH (18:09)
[2017-01-03 19:51] VITALS: BP 116/60
[2017-01-03] MEDS ORDERED: PPN PER PHARMACY IV NR ×11 (20:00)
[2017-01-03] MEDS: CAPTOPRIL 12.5 MG TAB PO SCH (21:29)
[2017-01-03] MEDS ORDERED: CAPTOPRIL 12.5 MG TAB PO SCH (22:00)
[2017-01-04] VITALS: BP 120/69
[2017-01-04 04:00] VITALS: BP 118/62
[2017-01-04 04:59] LABS: Hematocrit 23.2 % (36.0-46.0); Hemoglobin 7.9 g/dL (12.2-16.2)
[2017-01-04 05:14] LABS: Calcium 7.8 mg/dL (8.5-10.1); Magnesium 2.3 mg/dL (1.6-2.6); Potassium 4.2 mmol/L (3.5-5.1)
[2017-01-04 05:21] LABS: BUN/Creatinine Ratio 15.7; Bilirubin, Total 0.3 mg/dL (0.2-1.0); Phosphorus 2.6 mg/dL (2.5-4.90); Total Protein 5.9 g/dL (6.4-8.2)
[2017-01-04] MEDS: ACCU-CHEK COMFORT CURVE STRIP VI SCH ×3 (06:00→17:42)
[2017-01-04] MEDS: VANCOMYCIN HCL 125MG/5ML ORAL SOL PO SCH ×4 (06:12→22:16)
[2017-01-04] MEDS: metroNIDAZOLE 500 MG TAB PO SCH ×3 (06:12→21:57)
[2017-01-04] MEDS: SPIRONOLACTONE 25 MG TAB PO SCH ×2 (06:12→17:44)
[2017-01-04] MEDS: PIPERACILLIN-TAZOB 3.375GM 100 ML IV SCH ×3 (06:12→17:46)
[2017-01-04] MEDS: CAPTOPRIL 12.5 MG TAB PO SCH ×3 (06:16→22:00)
[2017-01-04] MEDS: InsuLIN REG 1unit/0.01ml Soln (100units/ml) SC SCH ×3 (06:16→18:00)
[2017-01-04] MEDS ORDERED: IOHEXOL 350 MG/ML 100ML IJ ONE (07:58)
[2017-01-04] MEDS ORDERED: LIDOCAINE 2%HCL (LOCAL ANESTH.) INJ 20ML MDV ONE (07:58)
[2017-01-04] MEDS: PRO-STAT 64 30ML PO SCH ×2 (08:00→18:00)
[2017-01-04] MEDS: ENOXAPARIN SOD 40 MG/0.4 ML SYRINGE SC SCH (10:00)
[2017-01-04] MEDS: FLUCONAZOLE 200MG/100ML 100 ML IV SCH (10:41)
[2017-01-04] MEDS: ASCORBIC ACID 500 MG TAB PO SCH ×2 (10:41→21:57)
[2017-01-04] MEDS: CHOLECALCIFEROL (VITD3) 1,000 UNIT TAB PO SCH (10:41)
[2017-01-04] MEDS: PANTOPRAZOLE 40 MG TAB PO SCH ×2 (10:41→21:57)
[2017-01-04] MEDS: DIGOXIN 0.125 MG TAB PO SCH (10:42)
[2017-01-04 12:00] VITALS: BP 137/63
[2017-01-04] MEDS ORDERED: fentaNYL CITRATE 100 MCG/2 ML VL ONE (13:56)
[2017-01-04] MEDS ORDERED: MIDAZOLAM HCL 1MG/1ML-2 ML VIAL ONE (13:57)
[2017-01-04] MEDS: MORPHINE SULF INJ 2 MG/ML SYRINGE 1ML IV PRN (15:44)
[2017-01-04 16:32] VITALS: BP 141/77
[2017-01-04] MEDS ORDERED: WARFARIN SODIUM 2.5 MG TAB PO ONE (17:00)
[2017-01-04] MEDS ORDERED: SODIUM CHLORIDE 0.9% 500 ML IV ONE (17:00)
[2017-01-04] MEDS ORDERED: DILTIAZEM HCL 25 MG/5 ML VIAL IV ONE ×2 (17:12→17:15)
[2017-01-04] MEDS: ACETAMINOPHEN 500 MG TAB PO PRN (17:14)
[2017-01-04] MEDS ORDERED: LABETALOL HCL 5 MG/ML ML 20ML VIAL IV PRN (17:30)
[2017-01-04 19:50] VITALS: BP 94/47
[2017-01-04] MEDS ORDERED: PPN PER PHARMACY IV NR ×11 (20:00)
[2017-01-05] MEDS: ACCU-CHEK COMFORT CURVE STRIP VI SCH ×2 (00:14→06:02)
[2017-01-05] MEDS: PIPERACILLIN-TAZOB 3.375GM 100 ML IV SCH ×4 (00:23→18:00)
[2017-01-05] MEDS: InsuLIN REG 1unit/0.01ml Soln (100units/ml) SC SCH ×2 (00:23→06:09)
[2017-01-05 04:59] LABS: Basophils # (auto) 0.1 uL; Basophils % (auto) 0.4 % (0.0-2.0); CONDITION Y; DEFINITIVE SEE PRINTOUT; Eosinophils # (auto) 0 uL; Eosinophils % (auto) 0.3 % (0.0-7.0); Hemoglobin 7.6 g/dL (12.2-16.2); Lymphocytes # (auto) 1.4 uL; Lymphocytes % (auto) 10.6 % (10.0-50.0); Mean Corpuscular Hemoglobin 30.3 pg (28.0-32.0); Mean Corpuscular Hgb Conc. 34.6 g/dL (32.0-36.0); Mean Corpuscular Volume 87.6 fL (80.0-100.0); Mean Platelet Volume 8.4 fL (7.4-10.4); Monocytes # (auto) 0.7 uL; Monocytes % (auto) 5.6 % (0.0-12.0); Neutrophils # (auto) 11.1 uL; Neutrophils % (auto) 83.1 % (37.0-80.0); Platelet Count (auto) 217 10^3/uL (140-450); Red Cell Distribution Width 13.3 % (11.6-16.0); White Blood Cell 13.3 10^3/uL (4.4-10.8)
[2017-01-05 05:18] LABS: Albumin 1.9 g/dL (3.4-5.0); BUN/Creatinine Ratio 21.8; Calcium 7.6 mg/dL (8.5-10.1); Magnesium 2.2 mg/dL (1.6-2.6); Potassium 4.3 mmol/L (3.5-5.1)
[2017-01-05 05:20] LABS: Bilirubin, Total 0.3 mg/dL (0.2-1.0); Phosphorus 2.1 mg/dL (2.5-4.90); Total Protein 5.7 g/dL (6.4-8.2)
[2017-01-05] MEDS: VANCOMYCIN HCL 125MG/5ML ORAL SOL PO SCH ×4 (05:51→23:00)
[2017-01-05] MEDS: metroNIDAZOLE 500 MG TAB PO SCH ×3 (05:52→23:00)
[2017-01-05] MEDS: SPIRONOLACTONE 25 MG TAB PO SCH ×2 (05:52→18:00)
[2017-01-05] MEDS: CAPTOPRIL 12.5 MG TAB PO SCH ×3 (06:00→23:18)
[2017-01-05 08:00] VITALS: BP 104/60
[2017-01-05] MEDS: PRO-STAT 64 30ML PO SCH ×2 (08:00→18:00)
[2017-01-05] MEDS: DIGOXIN 0.125 MG TAB PO SCH (11:03)
[2017-01-05] MEDS: ASCORBIC ACID 500 MG TAB PO SCH ×2 (11:03→23:01)
[2017-01-05] MEDS: FLUCONAZOLE 200MG/100ML 100 ML IV SCH (11:03)
[2017-01-05] MEDS: ENOXAPARIN SOD 40 MG/0.4 ML SYRINGE SC SCH (11:03)
[2017-01-05 11:04] VITALS: BP 113/61
[2017-01-05] MEDS: PANTOPRAZOLE 40 MG TAB PO SCH ×2 (11:04→23:00)
[2017-01-05] MEDS: CHOLECALCIFEROL (VITD3) 1,000 UNIT TAB PO SCH (11:04)
[2017-01-05] MEDS: PROMETHAZINE HCL 25 MG/ML 1ML IV PRN (13:42)
[2017-01-05 16:00] VITALS: BP 136/67
[2017-01-05 20:00] VITALS: BP 131/71
[2017-01-06] VITALS: BP 126/69
[2017-01-06] MEDS: PIPERACILLIN-TAZOB 3.375GM 100 ML IV SCH ×2 (00:06→05:46)
[2017-01-06 04:00] VITALS: BP 142/72
[2017-01-06 05:11] LABS: Basophils # (auto) 0.1 uL; Basophils % (auto) 0.7 % (0.0-2.0); CONDITION Y; DEFINITIVE SEE PRINTOUT; Eosinophils # (auto) 0.1 uL; Eosinophils % (auto) 1.1 % (0.0-7.0); Hematocrit 23.9 % (36.0-46.0); Hemoglobin 8.3 g/dL (12.2-16.2); Lymphocytes # (auto) 1.5 uL; Mean Corpuscular Hemoglobin 30.2 pg (28.0-32.0); Mean Corpuscular Hgb Conc. 34.8 g/dL (32.0-36.0); Mean Corpuscular Volume 86.9 fL (80.0-100.0); Mean Platelet Volume 8.8 fL (7.4-10.4); Monocytes # (auto) 0.7 uL; Neutrophils # (auto) 8.2 uL; Neutrophils % (auto) 77.2 % (37.0-80.0); Platelet Count (auto) 289 10^3/uL (140-450); Red Cell Distribution Width 13.1 % (11.6-16.0); White Blood Cell 10.6 10^3/uL (4.4-10.8)
[2017-01-06 05:38] LABS: BUN/Creatinine Ratio 13.2; Potassium 4.2 mmol/L (3.5-5.1)
[2017-01-06] MEDS: metroNIDAZOLE 500 MG TAB PO SCH ×3 (06:00→21:52)
[2017-01-06] MEDS: VANCOMYCIN HCL 125MG/5ML ORAL SOL PO SCH ×4 (06:00→21:52)
[2017-01-06] MEDS: SPIRONOLACTONE 25 MG TAB PO SCH ×2 (07:02→17:34)
[2017-01-06] MEDS: CAPTOPRIL 12.5 MG TAB PO SCH ×3 (07:03→21:51)
[2017-01-06 08:00] VITALS: BP 113/53
[2017-01-06] MEDS: PRO-STAT 64 30ML PO SCH ×2 (08:00→18:17)
[2017-01-06] MEDS: ENOXAPARIN SOD 40 MG/0.4 ML SYRINGE SC SCH (10:00)
[2017-01-06] MEDS: DIGOXIN 0.125 MG TAB PO SCH (10:18)
[2017-01-06] MEDS: PANTOPRAZOLE 40 MG TAB PO SCH (10:18)
[2017-01-06] MEDS: ASCORBIC ACID 500 MG TAB PO SCH ×2 (10:18→21:52)
[2017-01-06] MEDS: FLUCONAZOLE 200MG/100ML 100 ML IV SCH (10:18)
[2017-01-06] MEDS: CHOLECALCIFEROL (VITD3) 1,000 UNIT TAB PO SCH (10:18)
[2017-01-06] MEDS ORDERED: LOPERAMIDE HCL 2 MG CAP PO ONE (11:15)
[2017-01-06] MEDS ORDERED: LOPERAMIDE HCL 2 MG CAP PO PRN (11:15)
[2017-01-06] MEDS: ACCU-CHEK COMFORT CURVE STRIP VI SCH ×3 (11:30→21:49)
[2017-01-06] MEDS ORDERED: DEXTROSE (50%) 50ML SYRG IV PRN (11:45)
[2017-01-06 12:00] VITALS: BP 128/50
[2017-01-06] MEDS: InsuLIN REG 1unit/0.01ml Soln (100units/ml) SC SCH ×3 (12:26→21:50)
[2017-01-06 16:50] VITALS: BP 114/62
[2017-01-06] MEDS ORDERED: InsuLIN REG 1unit/0.01ml Soln (100units/ml) SC SCH (17:00)
[2017-01-06] MEDS ORDERED: ACCU-CHEK COMFORT CURVE STRIP VI SCH (17:00)
[2017-01-06 21:36] VITALS: BP 125/60
[2017-01-06] MEDS: INSULIN DETEMIR(LEVEMIR) 1unit/0.01ml Soln (100units/ml) SC SCH (21:49)
[2017-01-07] MEDS: MORPHINE SULF INJ 2 MG/ML SYRINGE 1ML IV PRN ×3 (02:40→11:53)
[2017-01-07] MEDS: VANCOMYCIN HCL 125MG/5ML ORAL SOL PO SCH ×4 (05:18→22:30)
[2017-01-07] MEDS: CAPTOPRIL 12.5 MG TAB PO SCH ×3 (05:18→22:30)
[2017-01-07] MEDS: metroNIDAZOLE 500 MG TAB PO SCH (05:19)
[2017-01-07] MEDS: SPIRONOLACTONE 25 MG TAB PO SCH ×2 (05:19→18:23)
[2017-01-07 05:20] VITALS: BP 134/69
[2017-01-07] MEDS: INSULIN DETEMIR(LEVEMIR) 1unit/0.01ml Soln (100units/ml) SC SCH ×2 (06:14→22:00)
[2017-01-07] MEDS: ACCU-CHEK COMFORT CURVE STRIP VI SCH ×4 (06:14→22:27)
[2017-01-07] MEDS: InsuLIN REG 1unit/0.01ml Soln (100units/ml) SC SCH ×4 (06:14→22:00)
[2017-01-07] MEDS: PRO-STAT 64 30ML PO SCH ×2 (08:00→18:00)
[2017-01-07 09:00] VITALS: BP 138/66
[2017-01-07] MEDS: DIGOXIN 0.125 MG TAB PO SCH (09:42)
[2017-01-07] MEDS: ASCORBIC ACID 500 MG TAB PO SCH ×2 (09:42→22:28)
[2017-01-07] MEDS: CHOLECALCIFEROL (VITD3) 1,000 UNIT TAB PO SCH (09:42)
[2017-01-07] MEDS: ENOXAPARIN SOD 40 MG/0.4 ML SYRINGE SC SCH (09:45)
[2017-01-07 10:44] LABS: Hematocrit 25.7 % (36.0-46.0); Hemoglobin 8.9 g/dL (12.2-16.2)
[2017-01-07] MEDS: ONDANSETRON HCL 4 MG/2 ML VIAL IV PRN ×2 (11:53→18:32)
[2017-01-07 13:00] VITALS: BP 163/79
[2017-01-07] MEDS ORDERED: KETOROLAC TROMETH 30 MG/ML 1ML VIAL IV PRN (14:45)
[2017-01-07 16:41] VITALS: BP 139/66
[2017-01-07 22:00] VITALS: BP 143/71
[2017-01-08 05:17] VITALS: BP 150/75
[2017-01-08] MEDS: SPIRONOLACTONE 25 MG TAB PO SCH ×2 (06:36→17:02)
[2017-01-08] MEDS: ACCU-CHEK COMFORT CURVE STRIP VI SCH ×4 (06:36→22:08)
[2017-01-08] MEDS: INSULIN DETEMIR(LEVEMIR) 1unit/0.01ml Soln (100units/ml) SC SCH (06:36)
[2017-01-08] MEDS: VANCOMYCIN HCL 125MG/5ML ORAL SOL PO SCH (06:36)
[2017-01-08] MEDS: CAPTOPRIL 12.5 MG TAB PO SCH ×3 (06:36→22:07)
[2017-01-08] MEDS: InsuLIN REG 1unit/0.01ml Soln (100units/ml) SC SCH ×4 (06:37→22:00)
[2017-01-08 09:00] VITALS: BP 107/62
[2017-01-08] MEDS: PRO-STAT 64 30ML PO SCH ×2 (09:56→17:03)
[2017-01-08] MEDS: ENOXAPARIN SOD 40 MG/0.4 ML SYRINGE SC SCH (10:00)
[2017-01-08] MEDS: DIGOXIN 0.125 MG TAB PO SCH (10:34)
[2017-01-08] MEDS: ASCORBIC ACID 500 MG TAB PO SCH ×2 (10:34→22:08)
[2017-01-08] MEDS: CHOLECALCIFEROL (VITD3) 1,000 UNIT TAB PO SCH (10:34)
[2017-01-08 13:00] VITALS: BP 156/77
[2017-01-08] MEDS ORDERED: CHOL1000T PO (15:41)
[2017-01-08] MEDS ORDERED: CAP125T PO (15:41)
[2017-01-08] MEDS ORDERED: SPIR25TA88 PO (15:41)
[2017-01-08] MEDS ORDERED: METF500T PO (16:00)
[2017-01-08] MEDS ORDERED: CAR3125T PO (16:00)
[2017-01-08 17:00] VITALS: BP 156/75
[2017-01-08] MEDS: metFORMIN HYDROCHLORIDE 500 MG TAB PO SCH (17:03)
[2017-01-08] MEDS: ACETAMINOPHEN 500 MG TAB PO PRN (20:34)
[2017-01-08] MEDS: Boost Glucose Control 8 Ounces PO SCH (21:16)
[2017-01-08 22:00] VITALS: BP 156/72
[2017-01-08] MEDS ORDERED: ATORVASTATIN 20 MG TAB PO SCH (22:00)
[2017-01-08] MEDS: CARVEDILOL 3.125 MG TAB PO SCH (22:08)
[2017-01-09 05:05] VITALS: BP 134/74
[2017-01-09] MEDS: Boost Glucose Control 8 Ounces PO SCH (06:00)
[2017-01-09 06:08] LABS: Basophils # (auto) 0.1 uL; Basophils % (auto) 0.8 % (0.0-2.0); CONDITION Y; Eosinophils # (auto) 0.2 uL; Eosinophils % (auto) 2.5 % (0.0-7.0); Hematocrit 27.3 % (36.0-46.0); Hemoglobin 9.5 g/dL (12.2-16.2); Lymphocytes # (auto) 2.3 uL; Lymphocytes % (auto) 26.8 % (10.0-50.0); Mean Corpuscular Hemoglobin 30.2 pg (28.0-32.0); Mean Corpuscular Hgb Conc. 34.7 g/dL (32.0-36.0); Mean Platelet Volume 7.8 fL (7.4-10.4); Monocytes # (auto) 0.5 uL; Neutrophils # (auto) 5.6 uL; Neutrophils % (auto) 63.9 % (37.0-80.0); Platelet Count (auto) 429 10^3/uL (140-450); Red Cell Distribution Width 12.7 % (11.6-16.0); White Blood Cell 8.7 10^3/uL (4.4-10.8)
[2017-01-09 06:14] LABS: BUN/Creatinine Ratio 12.1; Calcium 8.5 mg/dL (8.5-10.1); Potassium 3.9 mmol/L (3.5-5.1)
[2017-01-09] MEDS: ACCU-CHEK COMFORT CURVE STRIP VI SCH ×2 (06:30→11:30)
[2017-01-09] MEDS: InsuLIN REG 1unit/0.01ml Soln (100units/ml) SC SCH ×2 (06:30→11:30)
[2017-01-09] MEDS: SPIRONOLACTONE 25 MG TAB PO SCH (06:46)
[2017-01-09] MEDS: CAPTOPRIL 12.5 MG TAB PO SCH (06:47)
[2017-01-09] MEDS: PRO-STAT 64 30ML PO SCH (08:34)
[2017-01-09] MEDS: metFORMIN HYDROCHLORIDE 500 MG TAB PO SCH (08:34)
[2017-01-09 08:44] VITALS: BP 137/70
[2017-01-09 10:14] VITALS: BP 137/70
[2017-01-09] MEDS: ASCORBIC ACID 500 MG TAB PO SCH (11:32)
[2017-01-09] MEDS: CARVEDILOL 3.125 MG TAB PO SCH (11:32)
[2017-01-09] MEDS: ENOXAPARIN SOD 40 MG/0.4 ML SYRINGE SC SCH (11:33)
[2017-01-09] MEDS: CHOLECALCIFEROL (VITD3) 1,000 UNIT TAB PO SCH (11:33)
[2017-01-09 12:43] VITALS: BP 136/71
== END 2017-01-09 13:00 | disposition home or self-care (01) | DRG 720 ==
LOC: EDBD 09:37 → ER 09:42 → TELE 09:43 → ICU WEST 12-20 20:15 → DOU IN ICU 12-23 10:45 → CENTRAL 12-24 22:58 → TELE-CENTR 01-02 10:49 → DOU IN ICU 01-02 20:22 → CENTRAL 01-06 15:36
PROVIDERS: ADMIT Internal Medicine; ATTEND Internal Medicine
PROC: 0DJ08ZZ Inspection of Upper Intestinal Tract, Via Natural or Artificial Opening Endoscopic (ICD-10-PCS; 2017-01-03)
PROC: 0T913ZX Drainage of Left Kidney, Percutaneous Approach, Diagnostic (ICD-10-PCS; principal; 2017-01-04)
PROC: BT121ZZ Fluoroscopy of Left Kidney using Low Osmolar Contrast (ICD-10-PCS; 2017-01-04)
DX: A41.51 Sepsis due to Escherichia coli [E. coli] (principal); N17.0 Acute kidney failure with tubular necrosis; R65.21 Severe sepsis with septic shock; E43 Unspecified severe protein-calorie malnutrition; G92 Toxic encephalopathy; R18.8 Other ascites; I13.0 Hypertensive heart and chronic kidney disease with heart failure and stage 1 through stage 4 chronic kidney disease, or unspecified chronic kidney disease; D69.59 Other secondary thrombocytopenia; I50.9 Heart failure, unspecified; I95.9 Hypotension, unspecified; N13.6 Pyonephrosis; E11.22 Type 2 diabetes mellitus with diabetic chronic kidney disease; A04.7 Enterocolitis due to Clostridium difficile; E11.42 Type 2 diabetes mellitus with diabetic polyneuropathy; B37.49 Other urogenital candidiasis; N30.00 Acute cystitis without hematuria; I12.9 Hypertensive chronic kidney disease with stage 1 through stage 4 chronic kidney disease, or unspecified chronic kidney disease; B96.20 Unspecified Escherichia coli [E. coli] as the cause of diseases classified elsewhere; N18.2 Chronic kidney disease, stage 2 (mild); E11.65 Type 2 diabetes mellitus with hyperglycemia; Z68.1 Body mass index [BMI] 19.9 or less, adult; E55.9 Vitamin D deficiency, unspecified; E87.6 Hypokalemia; F17.200 Nicotine dependence, unspecified, uncomplicated; I67.2 Cerebral atherosclerosis; F43.20 Adjustment disorder, unspecified; F32.9 Major depressive disorder, single episode, unspecified; E86.0 Dehydration; R09.02 Hypoxemia; I70.8 Atherosclerosis of other arteries; J98.11 Atelectasis; N28.0 Ischemia and infarction of kidney; Z83.3 Family history of diabetes mellitus; Z79.899 Other long term (current) drug therapy; Z71.3 Dietary counseling and surveillance
CPT/HCPCS: 36415; 36600; 43235; 50432; 51702; 70450; 71010; 71020; 71250; 74176; 74178; 74425; 76700; 76937; 80048; 80053; 80061; 80074; 80162; 80307; 80320; 81001; 82040; 82150; 82270; 82306; 82378; 82390; 82550; 82607; 82728; 82746; 82805; 82962; 83010; 83036; 83540; 83550; 83605; 83615; 83690; 83735; 83880; 83970; 84100; 84132; 84443; 84478; 84484; 84550; 85007; 85014; 85018; 85025; 85027; 85045; 85384; 85610; 85652; 85730; 86038; 86141; 86703; 86850; 86900; 86901; 87040; 87077; 87081; 87086; 87088; 87186; 87493; 93005; 93306; 93886; 95819; 96361; 96374; 97110; 97116; 97530; 99152; 99153; 99291; C1729; C9113; J0696; J1450; J1815; J2001; J2250; J2405; J2543; J3490; J7131

== ENCOUNTER 2024-04-22 12:33 | Inpatient (IN) | payer BC, MEDICAID ==
[~2024-04-22] VITALS: Ht 154.9 cm; Wt 48.4 kg
[~2024-04-22 12:33] MED LIST: CAPT12.53 PO; CARV-214 PO; METF500T PO; SPIR25TA PO; [UNRECOGNIZED DRUG - CODE] PO
--- NOTE | 2024-04-22 13:00 | ECG ---
[facility] Test Date: 2024-04-22 Test Time: 12:58:46 Pat Name: JOSE SCHERER Department: ED Room: 0297T Gender: F Magisterial District Judge: ANEUDY : 1955 Requested By: MILY CASEY Order Number: [id number] Reading MD: Gonzales Serrano Measurements Intervals [place] Rate: P: 0 [place]: 0 QRS: 0 QRSD: 0 T: 0 QT: 0 QTc: 0 Interpretive Statements Accelerated wide complex idioventricular rhythm No further analysis attempted - not enough leads could be measured Electronically Signed On 04-27-2024 10:00:53 PST by Gonzales Serrano Please click the below link to view image of tracing.
[2024-04-22 13:10] VITALS: PULSE 57; RESP 16; O2SAT 95
--- NOTE | 2024-04-22 13:19 | ED.PDOC ---
History of Present Illness HPI Comments 69 y/o F is BIBA for c/o generalized weakness, non-radiating, lower abdominal pain, nausea, vomiting, and diarrhea, today. Patient is a poor historian and reports having GI symptoms for the past 3x days with additional onset of weakness this morning. Patient states her last hemodialysis was 04/19/24 and missed her appointment on 04/21/24. Per EMS, patient reportedly dialysis all week, and was found on scene with a blood glucose of 93 and a SpO2 of 90% on 4lpm home O2. Patient has a Hx of COPD w/O2 use, DM, HTN, and RI. Chief Complaint: General Weakness Time Seen by MD: 13:00 Primary Care Provider: UNKNOWN Reviewed Notes: Nurses Notes, Stamping Die Maker Notes, Medications, Allergies Allergies: Coded Allergies: Acetaminophen (Verified Allergy, Severe, 04/22/24) Hydrocodone (Verified Allergy, Severe, 04/22/24) Morphine (Verified Allergy, Severe, 04/22/24) Home Meds Active Scripts Carvedilol (COREG) 3.125 Mg Tab, 3.125 MG PO Q12HR for 60 Days, #120 TAB Prov:TASNEEM DE JESUS MD 01/08/17 Metformin Hydrochloride (Glucophage) 500 Mg Tab, 500 MG PO BIDWM, #60 TAB Prov:TASNEEM DE JESUS MD 01/08/17 Spironolactone (Aldactone) 25 Mg Tab, 25 MG PO DAILY, #30 TAB Prov:TASNEEM DE JESUS MD 01/08/17 Cholecalciferol (Vitamin D3) 1,000 Unit Tab, 2000 UNIT PO DAILY, #30 TAB Prov:TASNEEM DE JESUS MD 01/08/17 Captopril (Captopril) 12.5 Mg Tab, 12.5 MG PO Q8HR, #90 TAB Prov:TASNEEM DE JESUS MD 01/08/17 Information Source: Patient, Emergency Med Personnel Mode of Arrival: EMS Severity: Moderate Timing: Days Duration: Since onset Prehospital treatment: 12 Lead EKG, Accucheck, Biotechnologist Past Medical History PAST MEDICAL HISTORY: Anemia, COPD (w/home O2 use ), DM, High Lipids, HTN, RI Past Medical History (Other): atherosclerotic vascular disease, diabetic neuropathy CHANGE MANAGEMENT COORDINATOR History: No Pertinent CHANGE MANAGEMENT COORDINATOR History Family History Family History: Unknown Social History Smoker: Secondhand Alcohol: Other Drugs: Other Lives In: Home Gastrointestinal: reports: abdominal pain, diarrhea, nausea, vomiting All Other Systems: Reviewed and Negative (negative unless otherwise stated above or in HPI) Physical Exam General Appearance: Moderate Distress HEENT: Other (Dry mucous membranes) Neck: Full Range of Motion, Supple Respiratory: Decreased Breath Sounds, No Accessory Muscle Use, Respiratory Distress (Mild) Cardiovascular: Bradycardia, JVD, No Edema Breast Exam: Deferred Gastrointestinal: LLQ, RLQ, Soft, Tenderness Genitalia: Deferred Pelvic: Deferred Rectal: Deferred Extremities: Normal inspection, Normal range of motion, Non-tender, No pedal edema Neurologic: Alert (Oriented x3, moves all extremities, no gross focal deficit) Cerebellar Function: NOT DONE Reflexes: NOT DONE Skin: Dry, Normal Color, Warm Lymphatic: NOT DONE Was a procedure done? 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: Attending Physician Indication: Inability to obtain IV, Other (poor peripheral access, multiple IV meds required ) Room prepared for procedure: Yes Foundry Hand performed hand hygien: Yes Maximal sterile barrier precau: Sterile gown, Sterlie gloves, Large sterlie drape Skin Preparation: Chlorhexidine gluconate Skin preparation completely dr: Yes Insertion site: Right, Internal jugular Central line catheter type: Abf-[id number]-upr dialysis Number of lumens: 3 Central line exchanged over a: No Antiseptic ointment applied to: No Post Assessment: Chest X-Ray, Proper placement Informed consent obtained: Yes Risks/benefits/alt described: Yes EKG EKG : Comments Wide complex indeterminate rhythm, rate of approximately 58, almost a sign wave pattern Differential Dx Considerations may include: Hyperkalemia or other electrolyte imbalance, fluid overload, gastritis, gastroenteritis, cystitis, colitis, diverticulitis, ischemic bowel, pyelonephritis, appendicitis, among others X-Ray, Labs, Meds, VS Vital Signs Date Time Temp Pulse Resp B/P (MAP) Pulse Ox O2 Delivery O2 Flow Rate FiO2 04/22/24 16:00 58 16 137/39 (71) 95 04/22/24 16:00 137/39 04/22/24 15:45 58 16 147/44 (78) 04/22/24 15:44 148/35 04/22/24 15:30 58 16 148/35 (72) 04/22/24 15:15 58 16 145/33 (70) 95 04/22/24 15:00 67 16 142/31 (68) 95 04/22/24 14:45 81 16 148/17 (60) 95 04/22/24 14:44 145/33 04/22/24 14:30 78 16 135/33 (67) 95 04/22/24 14:15 82 16 145/16 (59) 95 04/22/24 14:00 84 16 144/14 (57) 95 04/22/24 13:55 82 16 146/26 (66) 95 04/22/24 13:46 76 16 127/16 (53) 95 04/22/24 13:44 119/14 04/22/24 13:41 67 16 119/14 (49) 95 04/22/24 13:35 61 16 84/18 (40) 95 04/22/24 13:21 56 16 84/19 (40) 04/22/24 13:10 57 16 95 Non-Rebreather 15 N/A 04/22/24 13:10 57 16 88/21 (43) 95 04/22/24 13:06 58 04/22/24 12:33 97.2 89 18 124/72 (89) 90 Lab Test 04/22/24 15:54 04/22/24 13:32 Range/Units Lactic Acid Level 1.1 2.6 *H 0.4-2.0 mmol/L White Blood Count 4.7 4.4-10.8 10^3/uL Red Blood Count 4.02 4.0-5.20 10^6/uL Hemoglobin 13.6 12.2-16.2 g/dL Hematocrit 41.9 36.0-46.0 % Mean Corpuscular Volume 104.3 H 80.0-100.0 fL Mean Corpuscular Hemoglobin 34.0 H 28.0-32.0 pg Mean Corpuscular Hemoglobin Concent 32.6 32.0-36.0 g/dL Red Cell Distribution Width 14.9 H 11.8-14.3 % Platelet Count 188 140-450 10^3/uL Mean Platelet Volume 10.4 6.9-10.8 fL Neutrophils (%) (Auto) 65.4 37.0-80.0 % Lymphocytes (%) (Auto) 27.6 10.0-50.0 % Monocytes (%) (Auto) 5.1 0.0-12.0 % Eosinophils (%) (Auto) 0.7 0.0-7.0 % Basophils (%) (Auto) 1.2 0.0-2.0 % Neutrophils # (Auto) 3.1 1.6-8.6 10 ^3/uL Lymphocytes # (Auto) 1.3 0.4-5.4 10 ^3/uL Monocytes # (Auto) 0.2 0-1.3 10 ^3/uL Eosinophils # (Auto) 0 0-0.8 10 ^3/uL Basophils # (Auto) 0.1 0-0.2 10 ^3/uL Nucleated Red Blood Cells 0.5 % Sodium Level 139 136-145 mmol/L Potassium Level 9.7 *H 3.5-5.1 mmol/L Chloride Level 107 98-107 mmol/L Carbon Dioxide Level 13 L 20-31 mmol/L Anion Gap 19 H 5-15 Blood Urea Nitrogen 166 *H 9-23 mg/dL Creatinine 11.59 *H 0.550-1.02 mg/dL Glomerular Filtration Rate Calc 3 >90 mL/min BUN/Creatinine Ratio 14.3 10.0-20.0 Serum Glucose 73 L 74-106 mg/dL Calcium Level 9.3 8.7-10.4 mg/dL Total Bilirubin 1.1 H 0.2-1.0 mg/dL Aspartate Amino Transferase (AST) 36 13-40 U/L Alanine Aminotransferase (ALT) 27 7-40 U/L Alkaline Phosphatase 192 H 46-116 U/L Troponin I High Sensitivity 52 *H </=34 ng/L B-Type Natriuretic Peptide > 5000.00 0-100 pg/mL Total Protein 6.1 5.7-8.2 g/dL Albumin 3.6 3.2-4.8 g/dL Current Medications Medications (Trade) Dose Ordered Sig/Camacho Route Start Time Stop Time Status Last Admin Insulin Human Regular (InsuLIN R) 10 units ONCE ONCE IV 04/22/24 13:15 04/22/24 13:35 DC 04/22/24 13:45 Dextrose 50 ml ONCE ONCE IV 04/22/24 13:15 04/22/24 13:35 DC 04/22/24 13:46 Albuterol (Ventolin Medneb) 20 mg ONCE ONCE NEB 04/22/24 13:15 04/22/24 13:35 DC 04/22/24 13:36 Zirconium Oxide (Lokelma) 10 gm ONCE ONCE PO 04/22/24 13:15 04/22/24 13:35 DC 04/22/24 15:05 Sodium Bicarbonate 50 ml ONCE ONCE IV 04/22/24 13:15 04/22/24 13:35 DC 04/22/24 13:47 Calcium Gluconate/ Sodium Chloride 50 ml @ 100 mls/hr ONCE ONCE IV 04/22/24 13:15 04/22/24 13:44 DC 04/22/24 13:52 Ondansetron HCl (Zofran) 4 mg ONCE ONCE IV 04/22/24 13:15 04/22/24 13:35 DC 04/22/24 13:46 Dopamine HCl/ Dextrose 250 ml @ 12.188 mls/ hr [id number] ONCE IV 04/22/24 13:45 04/23/24 10:15 04/22/24 13:44 PROCEDURE(s): CXR1 - CHEST XRAY 1 VIEW REASON: bradycardia ORDER NUMBER(s): [id number], ACCESSION NUMBER(s): [id number] CHEST RADIOGRAPH Indication: bradycardia Technique: Single frontal view of the chest was obtained Comparison: None FINDINGS: Lines and Tubes: Right internal jugular catheter in place in the right atrium. Lungs: Possible left lower lobe infiltrate or atelectasis. Pleura: No effusion. No pneumothorax. Cardiomediastinal contours: Cardiac size is enlarged may represent a pericardial effusion or cardiomyopathy. Bones: No acute osseous abnormality. IMPRESSION: 1. Cardiomegaly may represent pericardial effusion or cardiomyopathy. 2. Right internal jugular catheter in place in the right atrium. 3. Possible left lower lobe infiltrate or and/or atelectasis. EDURE(s): ABPL - CT AB PEL WO CON-NO ORAL OR IV REASON: low abd pain, n/v/d ORDER NUMBER(s): [id number], ACCESSION NUMBER(s): [id number] Exam: CT CT AB PEL WO CON-NO ORAL OR IV History: low abd pain, n/v/d Comparison Study: None available at time of dictation. TECHNIQUE: Multidetector CT of abdomen and pelvis without contrast. Axial, coronal and sagittal multiplanar reformats were obtained from the axial data set by the technologist. Radiation Dose Information: CT Dose: CTDI volume is 13.38 mGy. Dose-length product is 685.77 mGy*cm FINDINGS: Small bilateral pleural effusion with bibasilar opacities. Moderate cardiomegaly with moderate pericardial effusion. Liver, spleen, gallbladder, and adrenal glands are unremarkable. [id number] ascites evaluation for acute pancreatitis. Moderate atrophy bilateral kidneys. Bilateral renal vascular calcification is noted. No hydronephrosis bilaterally. Urinary bladder is decompressed with Armando catheter in place. There is wall vascular calcifications of the uterus. Focus of calcification of the uterine fundus which may represent a calcified fibroid. Limited evaluation of bilateral adnexa. Hyperdense material within the stomach which may represent ingested material. Mild gastric wall thickening. Mild wall thickening of proximal small bowel loops. The remainder of the small bowel loops unremarkable. Appendix appears normal in size with hyperdense material within the appendix which may represent ingested material. Mild wall thickening of the colon over the hepatic flexure. Limited evaluation of the large bowel for fat adjacent inflammatory reaction given ascites. No evidence of intraperitoneal free air. There is stenting of the lower thoracic aorta. Heavy atherosclerotic calcification of the aorta, bilateral iliacs, and aortic branches. Slightly prominent para-aortic lymph nodes measuring up to 0.8 cm which may be reactive with neoplasm not excluded. Diffuse anasarca. Sclerotic focus of the left iliac bone which may represent a bone island. Diffuse demineralization. No destructive osseous lesions noted. IMPRESSION: Limited noncontrast imaging . Small bilateral pleural effusions with associated atelectasis and possible bibasilar pneumonia. Ghfx-fn-[id number] ascites. Moderate bilateral renal atrophy with renal vascular calcifications. Mild wall thickening of the stomach and proximal small bowel loops which may be due to inadequate distention with gastroenteritis not excluded. Mild wall thickening of the colon of the hepatic flexure which may be from the surrounding ascites with colitis not excluded. Diffuse anasarca. Additional findings as above. X-Ray, Labs, Meds, VS Comment 69-year-old female with history of end-stage renal disease on dialysis, hypertension, diabetes, COPD and RI presenting with generalized weakness and lower abdominal pain Initial vitals remarkable for heart rate as low as 30 and blood pressure as low as 82 systolic Exam remarkable for generalized lower abdominal tenderness to palpation, bradycardia and diminished breath sounds Rhythm strip independently interpreted by me: Wide complex indeterminate rhythm, rate approximately in the 50s, almost a sine wave pattern Chest x-ray IMPRESSION: 1. Cardiomegaly may represent pericardial effusion or cardiomyopathy. 2. Right internal jugular catheter in place in the right atrium. 3. Possible left lower lobe infiltrate or and/or atelectasis. CT abdomen and pelvis: IMPRESSION: Limited noncontrast imaging . Small bilateral pleural effusions with associated atelectasis and possible bibasilar pneumonia. Ghbo-ye-bwjjmtat ascites. Moderate bilateral renal atrophy with renal vascular calcifications. Mild wall thickening of the stomach and proximal small bowel loops which may be due to inadequate distention with gastroenteritis not excluded. Mild wall thickening of the colon of the hepatic flexure which may be from the surrounding ascites with colitis not excluded. Diffuse anasarca. Additional findings. CBC unremarkable, CMP remarkable for potassium 9.7, CO2 13, BUN 166, creatinine 11.59, glucose 73, lactate 2.6, troponin 52, BNP greater than 5000 Patient treated with the following in the ED: Based on wide complex cardiac rhythm and history of missed dialysis, patient was immediately treated with regular insulin 10 units IV, D50 50 mL IV, sodium bicarb 50 mL IV, Lokelma 10 g p.o., calcium gluconate 1 g IV and albuterol 20 mg nebulized Patient was also placed on a dopamine infusion for heart rate and blood pressure support. By 1600, the patient's blood pressure was improved, heart rate was in the high 50s and a sinus rhythm, so patient was titrated off the dopamine infusion. Patient also received Zosyn 4.5 g IV coverage of possible pneumonia and/or colitis. Plan is to admit the patient for dialysis, electrolyte correction, emesis control, IV antibiotics, and respiratory support as needed. Time of 1ST Reevaluation: 18:00 Reevaluation 1ST: Improved Patient Education/Counseling: Diagnosis, Treatment Family Education/Counseling: No Family Present Additional Information I reviewed the following notes from the pt's past medical encounters: hospital admission discharge summary 04/01/17 The following tests were ordered, and results were reviewed by me: CT AB/PEL w/o contrast, Armando catheter, EKG, Lab (BNP, lactic acid, UA, CMP, CBC, trop), PHA, dopamine, albuterol, Zofran, calcium gluc, sodium bicarbonate, sodium zirconium, insulin, dextrose Additional information was gathered from interviewing the following independent historians: EMT I reviewed and agreed with the following test results read by other providers: CT AB/PEL w/o contrast I discussed treatments and results with medical personnel and: Consultants, Family Sepsis Sepsis Reasesment Focused Exam Sepsis focused exam: focus exam completed, time: (1837) Departure 1 Departure Time of Disposition: 16:26 Impression: Primary Impression: Acute kidney injury superimposed on chronic kidney disease Additional Impressions: Hyperkalemia Cardiac arrhythmia Qualified Codes: I49.9 - Cardiac arrhythmia, unspecified Generalized weakness Abdominal pain Qualified Codes: R10.30 - Lower abdominal pain, unspecified Nausea vomiting and diarrhea Colitis Pneumonia Qualified Codes: J18.9 - Pneumonia, unspecified organism Pleural effusion Disposition: ADMITTED INPATIENT Admit to: ICU Condition: Critical Critical Care Note Critical Care Time?: Yes (55 min-critical care time only) Critical care comment: Critical care time including multiple bedside re-evaluations, review of lab and imaging studies, discussion of the case with the admitting provider. Patient is high-risk for hemodynamic, respiratory and/or metabolic decompensation. Stability Stability form required: No Heart Score Heart Score: Heart Score Response (Comments) Value History N/A 0 EKG N/A 0 Age N/A 0 Risk Factors N/A 0 Troponin N/A 0 Total 0 I personally scribed for MIRNA DURHAM MD ([email or web address]) on 04/22/24 at 13:19. Electronically submitted by Joseph Melchor ([email or web address]). I personally scribed for MIRNA DURHAM MD ([email or web address]) on 04/22/24 at 13:30. Electronically submitted by Joseph Melchor ([email or web address]). I personally scribed for MIRNA DURHAM MD ([email or web address]) on 04/22/24 at 13:47. Electronically submitted by Joseph Melchor ([email or web address]). MIRNA DURHAM MD Apr 22, 2024 13:19
[2024-04-22] MEDS: ALBUTEROL SULF 2.5 MG/0.5ML(0.5%) NEB SOLN NEB ONE ×2 (13:36→18:37)
[2024-04-22] MEDS: ALBUTEROL SULF 2.5 MG/0.5ML(0.5%) NEB SOLN ONE (13:37)
[2024-04-22] MEDS: DOPamine 1600MCG/ML D5W 250 ML IV ONE (13:44)
[2024-04-22] MEDS: InsuLIN REG 1unit/0.01ml Soln (100units/ml) IV ONE ×2 (13:45→18:37)
[2024-04-22] MEDS: DEXTROSE (50%) 50ML SYRG IV ONE ×2 (13:46→18:34)
[2024-04-22] MEDS: ONDANSETRON HCL 4 MG/2 ML VIAL IV ONE (13:46)
[2024-04-22] MEDS: SODIUM BICARB 8.4% 50Meq/50ml SYR Vial IV ONE (13:47)
[2024-04-22] MEDS: CALCIUM GLUC 1,000mg/50ml-NS 50 ML IV ONE ×2 (13:52→18:33)
[2024-04-22 14:07] LABS: Basophils # (auto) 0.1 10 ^3/uL (0-0.2); Eosinophils # (auto) 0 10 ^3/uL (0-0.8); Eosinophils % (auto) 0.7 % (0.0-7.0); White Blood Cell 4.7 10^3/uL (4.4-10.8)
[2024-04-22 14:08] LABS: Basophils % (auto) 1.2 % (0.0-2.0); Hematocrit 41.9 % (36.0-46.0); Hemoglobin 13.6 g/dL (12.2-16.2); Lymphocytes # (auto) 1.3 10 ^3/uL (0.4-5.4); Lymphocytes % (auto) 27.6 % (10.0-50.0); Mean Corpuscular Hgb Conc. 32.6 g/dL (32.0-36.0); Mean Corpuscular Volume 104.3 fL (80.0-100.0); Monocytes # (auto) 0.2 10 ^3/uL (0-1.3); Monocytes % (auto) 5.1 % (0.0-12.0); Neutrophils # (auto) 3.1 10 ^3/uL (1.6-8.6); Neutrophils % (auto) 65.4 % (37.0-80.0); Nucleated Red Blood Cells % 0.5 %; Platelet Count (auto) 188 10^3/uL (140-450); Red Blood Cells 4.02 10^6/uL (4.0-5.20); Red Cell Distribution Width 14.9 % (11.8-14.3)
[2024-04-22 14:25] LABS: Alanine Aminotransferase 27 U/L (7-40)
[2024-04-22 14:26] LABS: Albumin 3.6 g/dL (3.2-4.8); Anion Gap 19 (5-15); Aspartate Aminotransferase 36 U/L (13-40); Bilirubin, Total 1.1 mg/dL (0.2-1.0); Calcium 9.3 mg/dL (8.7-10.4); Chloride 107 mmol/L (98-107); Sodium 139 mmol/L (136-145); Total Protein 6.1 g/dL (5.7-8.2)
[2024-04-22 14:31] LABS: Alkaline Phosphatase 192 U/L (46-116); Carbon Dioxide 13 mmol/L (20-31); Glucose 73 mg/dL (74-106); Potassium 9.7 mmol/L (3.5-5.1)
[2024-04-22 14:33] LABS: BUN/Creatinine Ratio 14.3 (10.0-20.0)
[2024-04-22 14:38] LABS: Lactic Acid w/Reflex 2.6 mmol/L (0.4-2.0)
[2024-04-22 14:39] LABS: Blood Urea Nitrogen 166 mg/dL (9-23)
[2024-04-22] MEDS: SODIUM ZIRCONIUM CYCL 10 GM PAK PO ONE (15:05)
--- NOTE | 2024-04-22 16:57 | DVHHP2 ---
History of Present Illness Reason for Visit: Weakness missed dialysis History of Present Illness 69 year old patient with a past medical history of COPD morbid obesity, diabetes, hypertension, hyperlipidemia, and [place] comes to the ED with complaints of weakness nausea vomiting patient is a severely poor historian states that she has been having abdominal pain for the last 3 days patient normally has dialysis done and at this point in time has missed dialysis multiple times throughout the week stated that because her stomach was hurting she did not go to dialysis and now is on the 3rd missed appointment of dialysis patient has multiple complaints multiple symptoms and severe signs of fluid overload patient will need to be admitted for further evaluation and management as per the ED recommendation Cardiovascular: HTN Renal/: Chronic renal insuff, Chronic renal failure Endocrine: Diabetes Review of Systems Constitutional: Yes: Weakness; No: Fever, Chills, Sweats, Malaise, Other Eyes: No: Pain, Vision change, Conjunctivae inflammation, Eyelid inflammation, Other, Redness ENT: No: Ear pain, Ear discharge, Nose pain, Nose discharge, Nose congestion, Mouth pain, Mouth swelling, Throat pain, Throat swelling, Other Respiratory: Cough, Shortness of breath; No: Dry, SOB with excertion, Wheezing, Hemoptysis, Pleuritic Pain, Sputum, Wheezing, Other Cardiovascular: Chest Pain, Palpitations; No: Orthopnea, Paroxysmal Noc. Dyspnea, Edema, Lt Headedness, Other Gastrointestinal: Nausea, Vomiting, Abdominal Pain; No: Diarrhea, Constipation, Melena, Hematochezia, Other Genitourinary: No Dysuria, No Frequency, No Incontinence, No Hematuria, No Ret ention, No Other Musculoskeletal: No: other, neck pain, shoulder pain, arm pain, back pain, hand pain, leg pain, foot pain Skin: No: Rash, Lesions, Jaundice, Bruising, Other Neurological: No: Weakness, Numbness, Incoordination, Change in speech, Confusion, Seizures, Other Allergies: Coded Allergies: Acetaminophen (Verified Allergy, Severe, 04/22/24) Hydrocodone (Verified Allergy, Severe, 04/22/24) Morphine (Verified Allergy, Severe, 04/22/24) Exam Vital Signs Vital Signs Date Time Temp Pulse Resp B/P (MAP) Pulse Ox O2 Delivery O2 Flow Rate FiO2 04/22/24 16:00 58 16 137/39 (71) 95 04/22/24 13:10 Non-Rebreather 15 N/A 04/22/24 12:33 97.2 General Appearance: Alert, Oriented X3, Cooperative, moderate distress HEENT: Atraumatic, PERRLA Respiratory: Clear to auscultation, Normal air movement Cardiovascular: Regular rate, Normal S1, Normal S2 Abdominal: Normal bowel sounds, Soft, No tenderness Extremities: No clubbing, No cyanosis, No edema Skin: No rashes, No breakdown Neuro: Normal gait, Normal speech Psych/Mental Status: Mood NL Labs/Xrays Labs Test 04/22/24 15:54 04/22/24 13:32 Range/Units Lactic Acid Level 1.1 0.4-2.0 mmol/L White Blood Count 4.7 4.4-10.8 10^3/uL Red Blood Count 4.02 4.0-5.20 10^6/uL Hemoglobin 13.6 12.2-16.2 g/dL Hematocrit 41.9 36.0-46.0 % Mean Corpuscular Volume 104.3 H 80.0-100.0 fL Mean Corpuscular Hemoglobin 34.0 H 28.0-32.0 pg Mean Corpuscular Hemoglobin Concent 32.6 32.0-36.0 g/dL Red Cell Distribution Width 14.9 H 11.8-14.3 % Platelet Count 188 140-450 10^3/uL Mean Platelet Volume 10.4 6.9-10.8 fL Neutrophils (%) (Auto) 65.4 37.0-80.0 % Lymphocytes (%) (Auto) 27.6 10.0-50.0 % Monocytes (%) (Auto) 5.1 0.0-12.0 % Eosinophils (%) (Auto) 0.7 0.0-7.0 % Basophils (%) (Auto) 1.2 0.0-2.0 % Neutrophils # (Auto) 3.1 1.6-8.6 10 ^3/uL Lymphocytes # (Auto) 1.3 0.4-5.4 10 ^3/uL Monocytes # (Auto) 0.2 0-1.3 10 ^3/uL Eosinophils # (Auto) 0 0-0.8 10 ^3/uL Basophils # (Auto) 0.1 0-0.2 10 ^3/uL Nucleated Red Blood Cells 0.5 % Sodium Level 139 136-145 mmol/L Potassium Level 9.7 *H 3.5-5.1 mmol/L Chloride Level 107 98-107 mmol/L Carbon Dioxide Level 13 L 20-31 mmol/L Anion Gap 19 H 5-15 Blood Urea Nitrogen 166 *H 9-23 mg/dL Creatinine 11.59 *H 0.550-1.02 mg/dL Glomerular Filtration Rate Calc 3 >90 mL/min BUN/Creatinine Ratio 14.3 10.0-20.0 Serum Glucose 73 L 74-106 mg/dL Calcium Level 9.3 8.7-10.4 mg/dL Total Bilirubin 1.1 H 0.2-1.0 mg/dL Aspartate Amino Transferase (AST) 36 13-40 U/L Alanine Aminotransferase (ALT) 27 7-40 U/L Alkaline Phosphatase 192 H 46-116 U/L Troponin I High Sensitivity 52 *H </=34 ng/L B-Type Natriuretic Peptide > 5000.00 0-100 pg/mL Total Protein 6.1 5.7-8.2 g/dL Albumin 3.6 3.2-4.8 g/dL Assessment/Plan Assessment/Plan Admit to ICU ESRD with signs of acute fluid overload Signs of cardiac arrhythmia Patient with abdominal pain likely secondary to electrolyte imbalances We will require immediate dialysis Potassium remarkably high at 9.7 Patient with elevated lactate patient with elevated BNP greater than 5000 Patient with elevated glucose Patient's hyperkalemia was initially started in the ED urgent bedside dialysis Critical care time 40 minutes Plan discussed with: Patient My Orders Orders - MAGGY CRUM MD Procedure Category Date Status Time *[facility] CONS 04/22/24 Transmitted -[place] 16:49 Glucose Blood PHA 04/22/24 Transmitted (Accu-Chek Comfort 20:00 Agressive Insulin Ss PHA 04/22/24 Transmitted 20:00 Dextrose 50% Syringe PHA 04/22/24 Transmitted 17:00 Admit ADMIT 04/22/24 Transmitted 16:49 Code Status CODE 04/22/24 Transmitted 16:49 Vital Signs [facility] 04/22/24 Transmitted 16:49 Review Orders With [facility] 04/22/24 Transmitted Adm. 16:49 Regular Diet DIET 04/22/24 Transmitted Dinner Lorazepam Tablet PHA 04/22/24 Transmitted (Ativan Tablet) 17:00 Alum & Mag PHA 04/22/24 Transmitted Hydrox-Simethicone 17:00 Docusate Sodium [facility] 04/22/24 Transmitted Capsule (Colace 17:00 Temazepam (Restoril) PHA 04/22/24 Transmitted 17:00 Notify Md Of Changes [facility] 04/22/24 Transmitted From Base 16:49 Advance Directive [facility] 04/22/24 Transmitted 16:49 Basic Metabolic Panel LAB 04/23/24 Verified 04:00 Urinalysis LAB 04/22/24 Transmitted 16:49 Complete Blood Count LAB 04/23/24 Verified 04:00 Patient Condition ORDERS 04/22/24 Transmitted 16:49 Allergies [facility] 04/22/24 Transmitted 16:49 Ondansetron Hcl [facility] 04/22/24 Transmitted (Zofran) 17:00 Stat Ekg For Chest [facility] 04/22/24 Transmitted Pain 16:49 Notify Md Of Changes [facility] 04/22/24 Transmitted From Base 16:49 Housing Assistant Property Manager For [facility] 04/22/24 Transmitted 24 Hours 16:49 Emergency Dysrhythmia [facility] 04/22/24 Transmitted Protocol 16:49 Rhythm Strips Once [facility] 04/22/24 Transmitted Every Shift 16:49 Oxygen By Nasal RT 04/22/24 Transmitted Cannula 16:49 Hydromorphone Hcl Inj [facility] 04/22/24 Transmitted (Dilaudid Innjecti 17:00 Problem List: (1) Renal failure (2) Anemia, iron deficiency (3) Uncontrolled diabetes mellitus (4) Hyperkalemia (5) Generalized weakness (6) Acute kidney injury superimposed on chronic kidney disease (7) Nausea vomiting and diarrhea Date of Service: Apr 22, 2024 Billing Provider: MAGGY CRUM MD Common Visit Codes: [id number] INP/OBS CARE (HIGH) MAGGY CRUM MD Apr 22, 2024 16:57
[2024-04-22] MEDS ORDERED: DOCUSATE SOD 100 MG CAP PO PRN (17:00)
[2024-04-22] MEDS ORDERED: LORazepam 0.5 MG TAB PO PRN (17:00)
[2024-04-22] MEDS ORDERED: HYDROMORPHONE HCL 1 MG/ML INJ IV PRN (17:00)
[2024-04-22 17:47] LABS: Urine Bacteria None Seen /hpf (None Seen)
--- NOTE | 2024-04-22 17:51 | DVH ---
Exam: CT CT AB PEL WO CON-NO ORAL OR IV History: low abd pain, n/v/d Comparison Study: None available at time of dictation. TECHNIQUE: Multidetector CT of abdomen and pelvis without contrast. Axial, coronal and sagittal multi planar reformats were obtained from the axial data set by the technologist. Radiation Dose Information: CT Dose: CTDI volume is 13.38 mGy. Dose-length product is 685.77 mGy*cm FINDINGS: Small bilateral pleural effusion with bibasilar opacities. Moderate cardiomegaly with moderate perica rdial effusion. Liver, spleen, gallbladder, and adrenal glands are unremarkable. [id number] ascites evaluation for acute pancreatitis. Moderate atrophy bilateral kidneys. Bilateral renal vascular calcification is noted. No hydronephros is bilaterally. Urinary bladder is decompressed with Armando catheter in place. There is wall vascular calcifications of the uterus. Focus of calcification of the uterine fundus which may represent a calc ified fibroid. Limited evaluation of bilateral adnexa. Hyperdense material within the stomach which may represent ingested material. Mild gastric wall thic kening. Mild wall thickening of proximal small bowel loops. The remainder of the small bowel loops u nremarkable. Appendix appears normal in size with hyperdense material within the appendix which may r epresent ingested material. Mild wall thickening of the colon over the hepatic flexure. Limited evalu ation of the large bowel for fat adjacent inflammatory reaction given ascites. No evidence of intraperitoneal free air. There is stenting of the lower thoracic aorta. Heavy atherosclerotic calcification of the aorta, claudia ateral iliacs, and aortic branches. Slightly prominent para-aortic lymph nodes measuring up to 0.8 cm which may be reactive with neoplasm not excluded. Diffuse anasarca. Sclerotic focus of the left iliac bone which may represent a bone island. Diffuse d emineralization. No destructive osseous lesions noted. IMPRESSION: Limited noncontrast imaging . Small bilateral pleural effusions with associated atelectasis and possible bibasilar pneumonia. [id number] ascites. Moderate bilateral renal atrophy with renal vascular calcifications. Mild wall thickening of the stomach and proximal small bowel loops which may be due to inadequate dis tention with gastroenteritis not excluded. Mild wall thickening of the colon of the hepatic flexure which may be from the surrounding ascites wi th colitis not excluded. Diffuse anasarca. Additional findings as above.
[2024-04-22 17:54] LABS: Urine Blood 2+ /uL (Negative); Urine Clarity Clear (Clear); Urine Color Light-Yellow (Yellow); Urine Protein, UAD 3+ (Negative); Urine Specific Gravity 1.012 (1.001-1.035); Urine Squamous Epithelial Cell FEW /hpf (<5); Urine Urobilinogen Normal (Negative); Urine WBC 9 /hpf (0 - 5); Urine pH 6.5 (5.0-9.0)
--- NOTE | 2024-04-22 18:11 | DVH ---
CHEST RADIOGRAPH Indication: bradycardia Technique: Single frontal view of the chest was obtained Comparison: None FINDINGS: Lines and Tubes: Right internal jugular catheter in place in the right atrium. Lungs: Possible left lower lobe infiltrate or atelectasis. Pleura: No effusion. No pneumothorax. Cardiomediastinal contours: Cardiac size is enlarged may represent a pericardial effusion or cardiomy opathy. Bones: No acute osseous abnormality. IMPRESSION: 1. Cardiomegaly may represent pericardial effusion or cardiomyopathy. 2. Right internal jugular catheter in place in the right atrium. 3. Possible left lower lobe infiltrate or and/or atelectasis.
[2024-04-22] MEDS ORDERED: MANNITOL FTV 25% 12.5 GM/50 ML 50 ML IV PRN (18:15)
[2024-04-22] MEDS: SODIUM CHL 0.9% 1000 ML BAG XX ONE (18:15)
[2024-04-22] MEDS: SODIUM BICARB 8.4% 50Meq/50ml SYR INJ IV ONE (18:33)
[2024-04-22] MEDS: PIPERACILLIN-TAZO 4.5GM 100 ML IV ONE ×2 (18:45→23:00)
--- NOTE | 2024-04-22 18:54 | DVHINCON2 ---
Date of service: Apr 22, [address] Mccarthy Reason for Consultation ESRD History of Present Illness 69 year old female presents to Er after missing several dialysis treatments. She is out of area. She prevents with severe weakness. Her Er course is notable for critical K 9.7 and BUN 166 at 1:30pm. She was noted to have wide complex T waves and hypotension. Hyperkalemia protcol and dopamine started. I received consult for stat dialysis @ 6pm. Calcium, insulin and dextrose reordered and dialysis nurse notified for stat dialysis Past Medical History htn esrd COPD Allergies: Coded Allergies: Acetaminophen (Verified Allergy, Severe, 04/22/24) Hydrocodone (Verified Allergy, Severe, 04/22/24) Morphine (Verified Allergy, Severe, 04/22/24) Home Meds Active Scripts Carvedilol (COREG) 3.125 Mg Tab, 3.125 MG PO Q12HR for 60 Days, #120 TAB Prov:TASNEEM DE JESUS MD 01/08/17 Metformin Hydrochloride (Glucophage) 500 Mg Tab, 500 MG PO BIDWM, #60 TAB Prov:TASNEEM DE JESUS MD 01/08/17 Spironolactone (Aldactone) 25 Mg Tab, 25 MG PO DAILY, #30 TAB Prov:TASNEEM DE JESUS MD 01/08/17 Cholecalciferol (Vitamin D3) 1,000 Unit Tab, 2000 UNIT PO DAILY, #30 TAB Prov:TASNEEM DE JESUS MD 01/08/17 Captopril (Captopril) 12.5 Mg Tab, 12.5 MG PO Q8HR, #90 TAB Prov:TASNEEM DE JESUS MD 01/08/17 Current Medications Current Medications Medications (Trade) Dose Ordered Sig/Camacho Route PRN Reason Start Time Stop Time Status Last Admin Diagnostic Test (Pha) (Accu-Chek Comfort Curve T) 1 strip IQ4HR 04/22/24 20:00 04/23/24 04:06 Insulin Human Regular (InsuLIN R) IQ4HR SC 04/22/24 20:00 Dextrose 50 ml UD PRN IV Blood Sugar LESS THAN 60 04/22/24 17:00 04/23/24 00:14 Lorazepam (Ativan Tablet) 0.5 mg Q6HP PRN PO ANXIETY 04/22/24 17:00 Al Hydrox/Mg Hydrox/Simethicone (Maalox Plus) 30 ml Q6HP PRN PO FOR STOMACH DISTRESS 04/22/24 17:00 Docusate Sodium (Colace Capsule) 100 mg BIDPRN PRN PO FOR CONSTIPATION 04/22/24 17:00 Temazepam (Restoril) 15 mg QHSP PRN PO FOR INSOMNIA 04/22/24 17:00 Ondansetron HCl (Zofran) 4 mg Q4HP PRN IV NAUSEA / VOMITING 04/22/24 17:00 04/23/24 02:53 Hydromorphone HCl (Dilaudid Innjection) 1 mg Q4HPRN PRN IV SEVERE PAIN (7-10 PAIN SCALE) 04/22/24 17:00 Hold Mannitol 50 ml @ 50 mls/hr ONCE PRN IV Dialysis Disequalibrium 04/22/24 18:15 04/22/24 19:14 DC Nicardipine HCl 250 ml @ 50 mls/hr Q5H IV 04/23/24 01:45 04/23/24 02:00 Family History: Family history: Diabetes mellitus G8 FATHER Review of Systems weakness and swelling H&P Exam Vital Signs/I&O Vital Sign Date Time Temp Pulse Resp B/P (MAP) Pulse Ox O2 Delivery O2 Flow Rate FiO2 04/23/24 05:45 67 20 157/40 (79) 93 04/23/24 00:54 97.2 97.2 04/22/24 19:40 Nasal Cannula* 4 36 Intake and Output 0 04/22/24 04/23/24 19:00 07:00 Intake Total 124.376 ml 110 ml Balance 124.376 ml 110 ml Intake IV Total 124.376 ml 110 ml Physical Exam elderly female mild edematous left AVF no ankle edema barron rrr ctab Labs/Diagnostic Data Labs/Diagnostic Data Laboratory Tests Test 04/23/24 04:23 04/23/24 00:38 04/23/24 00:36 04/23/24 00:07 Range/Units White Blood Count 4.4 4.4-10.8 10^3/uL Red Blood Count 3.36 L 4.0-5.20 10^6/uL Hemoglobin 11.4 #L 12.2-16.2 g/dL Hematocrit 33.3 #L 36.0-46.0 % Mean Corpuscular Volume 99.1 # 80.0-100.0 fL Mean Corpuscular Hemoglobin 34.0 H 28.0-32.0 pg Mean Corpuscular Hemoglobin Concent 34.3 32.0-36.0 g/dL Red Cell Distribution Width 14.1 11.8-14.3 % Platelet Count 146 140-450 10^3/uL Mean Platelet Volume 9.8 6.9-10.8 fL Neutrophils (%) (Auto) 69.3 37.0-80.0 % Lymphocytes (%) (Auto) 14.2 10.0-50.0 % Monocytes (%) (Auto) 12.6 H 0.0-12.0 % Eosinophils (%) (Auto) 3.0 0.0-7.0 % Basophils (%) (Auto) 0.9 0.0-2.0 % Neutrophils # (Auto) 3.1 1.6-8.6 10 ^3/uL Lymphocytes # (Auto) 0.6 0.4-5.4 10 ^3/uL Monocytes # (Auto) 0.6 0-1.3 10 ^3/uL Eosinophils # (Auto) 0.1 0-0.8 10 ^3/uL Basophils # (Auto) 0 0-0.2 10 ^3/uL Nucleated Red Blood Cells 0.1 % Sodium Level 145 136-145 mmol/L Potassium Level 4.4 3.5-5.1 mmol/L Chloride Level 106 98-107 mmol/L Carbon Dioxide Level 28 20-31 mmol/L Anion Gap 11 5-15 Blood Urea Nitrogen 61 H 9-23 mg/dL Creatinine 5.92 H 0.550-1.02 mg/dL Glomerular Filtration Rate Calc 7 >90 mL/min BUN/Creatinine Ratio 10.3 10.0-20.0 Serum Glucose 83 74-106 mg/dL Calcium Level 9.1 8.7-10.4 mg/dL Phosphorus Level 5.8 H 2.4-5.1 mg/dL POC Glucose 208 H 192 H 59 L 70-106 mg/dl Test 04/22/24 22:35 04/22/24 19:47 04/22/24 18:36 04/22/24 17:30 Range/Units Sodium Level 146 H 145 # 136-145 mmol/L Potassium Level 3.7 5.6 #*H 3.5-5.1 mmol/L Chloride Level 106 109 H 98-107 mmol/L Carbon Dioxide Level 28 23 20-31 mmol/L Anion Gap 12 13 5-15 Blood Urea Nitrogen 52 #H 107 #*H 9-23 mg/dL Creatinine 4.74 #H 7.81 #H 0.550-1.02 mg/dL Glomerular Filtration Rate Calc 10 5 >90 mL/min BUN/Creatinine Ratio 11.0 13.7 10.0-20.0 Serum Glucose 51 L 90 74-106 mg/dL Calcium Level 9.4 9.4 8.7-10.4 mg/dL POC Glucose 90 70-106 mg/dl Urine Color Light-yellow Yellow Urine Clarity Clear Clear Urine pH 6.5 5.0-9.0 Urine Specific Ellery 1.012 1.001-1.035 Urine Protein 3+ H Negative Urine Ketones Negative Negative Urine Blood 2+ H Negative /uL Urine Nitrite Negative Negative Urine Bilirubin Negative Negative Urine Urobilinogen Normal Negative mg/dL Urine Leukocyte Esterase 1+ Negative /uL Urine RBC 15 0 - 4 /hpf Urine WBC 9 0 - 5 /hpf Urine Squamous Epithelial Cells Few <5 /hpf Urine Bacteria None seen None Seen /hpf Urine Glucose 2+ H Normal mg/dL Test 04/22/24 15:54 04/22/24 13:32 Range/Units Lactic Acid Level 1.1 2.6 *H 0.4-2.0 mmol/L White Blood Count 4.7 4.4-10.8 10^3/uL Red Blood Count 4.02 4.0-5.20 10^6/uL Hemoglobin 13.6 12.2-16.2 g/dL Hematocrit 41.9 36.0-46.0 % Mean Corpuscular Volume 104.3 H 80.0-100.0 fL Mean Corpuscular Hemoglobin 34.0 H 28.0-32.0 pg Mean Corpuscular Hemoglobin Concent 32.6 32.0-36.0 g/dL Red Cell Distribution Width 14.9 H 11.8-14.3 % Platelet Count 188 140-450 10^3/uL Mean Platelet Volume 10.4 6.9-10.8 fL Neutrophils (%) (Auto) 65.4 37.0-80.0 % Lymphocytes (%) (Auto) 27.6 10.0-50.0 % Monocytes (%) (Auto) 5.1 0.0-12.0 % Eosinophils (%) (Auto) 0.7 0.0-7.0 % Basophils (%) (Auto) 1.2 0.0-2.0 % Neutrophils # (Auto) 3.1 1.6-8.6 10 ^3/uL Lymphocytes # (Auto) 1.3 0.4-5.4 10 ^3/uL Monocytes # (Auto) 0.2 0-1.3 10 ^3/uL Eosinophils # (Auto) 0 0-0.8 10 ^3/uL Basophils # (Auto) 0.1 0-0.2 10 ^3/uL Nucleated Red Blood Cells 0.5 % Sodium Level 139 136-145 mmol/L Potassium Level 9.7 *H 3.5-5.1 mmol/L Chloride Level 107 98-107 mmol/L Carbon Dioxide Level 13 L 20-31 mmol/L Anion Gap 19 H 5-15 Blood Urea Nitrogen 166 *H 9-23 mg/dL Creatinine 11.59 *H 0.550-1.02 mg/dL Glomerular Filtration Rate Calc 3 >90 mL/min BUN/Creatinine Ratio 14.3 10.0-20.0 Serum Glucose 73 L 74-106 mg/dL Calcium Level 9.3 8.7-10.4 mg/dL Total Bilirubin 1.1 H 0.2-1.0 mg/dL Aspartate Amino Transferase (AST) 36 13-40 U/L Alanine Aminotransferase (ALT) 27 7-40 U/L Alkaline Phosphatase 192 H 46-116 U/L Troponin I High Sensitivity 52 *H </=34 ng/L B-Type Natriuretic Peptide > 5000.00 0-100 pg/mL Total Protein 6.1 5.7-8.2 g/dL Albumin 3.6 3.2-4.8 g/dL Assessment ESRD severe Azotemia due to noncompliance severe hyperkalemia hypotension fluid overload metabolic acidosis repeat Ca IV immediately for cardiac protection stat dialysis 1k bath, Patient will need high sodium profile to prevent dialysis disequilibri um. Mannitol PRN monitor closely for neurologic symptoms will assess if repeated emergent HD is required today THis patient is critically ill and high risk for decompensation. resume BP meds post treatment and IV diuretics critical care time 70mins Plan discussed with: Patient CRISSY HOWARD MD Apr 22, 2024 18:54
[2024-04-22 19:40] VITALS: PULSE 67; RESP 21; O2SAT 98
[2024-04-22] MEDS: ACCU-CHEK COMFORT CURVE STRIP VI SCH (20:00)
[2024-04-22] MEDS: InsuLIN REG 1unit/0.01ml Soln (100units/ml) SC SCH (20:00)
[2024-04-22 20:12] LABS: Anion Gap 13 (5-15); Carbon Dioxide 23 mmol/L (20-31)
[2024-04-22 20:13] LABS: Calcium 9.4 mg/dL (8.7-10.4); Chloride 109 mmol/L (98-107); Sodium 145 mmol/L (136-145)
[2024-04-22 20:18] LABS: BUN/Creatinine Ratio 13.7 (10.0-20.0); Glucose 90 mg/dL (74-106); Potassium 5.6 mmol/L (3.5-5.1)
[2024-04-22 20:30] LABS: Blood Urea Nitrogen 107 mg/dL (9-23)
[2024-04-22] MEDS: hydrALAZINE HCL 20 MG/ML VL IV ONE (22:54)
[2024-04-22 23:00] LABS: Chloride 106 mmol/L (98-107); Potassium 3.7 mmol/L (3.5-5.1)
[2024-04-22 23:01] LABS: Anion Gap 12 (5-15); Calcium 9.4 mg/dL (8.7-10.4); Carbon Dioxide 28 mmol/L (20-31)
[2024-04-22 23:18] LABS: Blood Urea Nitrogen 52 mg/dL (9-23); Glucose 51 mg/dL (74-106); Sodium 146 mmol/L (136-145)
[2024-04-22] MEDS: ENALAPRILAT 1.25 MG/ML-1ML VIAL IV ONE (23:34)
[2024-04-23] MEDS: DEXTROSE (50%) 50ML SYRG IV PRN (00:14)
[2024-04-23] MEDS: ONDANSETRON HCL 4 MG/2 ML VIAL IV PRN (02:53)
[2024-04-23] MEDS: diphenhdrAMINE HCL 50 MG/1 ML VL IV ONE (03:09)
[2024-04-23 04:49] LABS: Basophils # (auto) 0 10 ^3/uL (0-0.2); Basophils % (auto) 0.9 % (0.0-2.0); Eosinophils # (auto) 0.1 10 ^3/uL (0-0.8); Hematocrit 33.3 % (36.0-46.0); Hemoglobin 11.4 g/dL (12.2-16.2); Lymphocytes # (auto) 0.6 10 ^3/uL (0.4-5.4); Lymphocytes % (auto) 14.2 % (10.0-50.0); Mean Corpuscular Hgb Conc. 34.3 g/dL (32.0-36.0); Mean Corpuscular Volume 99.1 fL (80.0-100.0); Monocytes # (auto) 0.6 10 ^3/uL (0-1.3); Monocytes % (auto) 12.6 % (0.0-12.0); Neutrophils # (auto) 3.1 10 ^3/uL (1.6-8.6); Neutrophils % (auto) 69.3 % (37.0-80.0); Nucleated Red Blood Cells % 0.1 %; Platelet Count (auto) 146 10^3/uL (140-450); Red Blood Cells 3.36 10^6/uL (4.0-5.20); Red Cell Distribution Width 14.1 % (11.8-14.3); White Blood Cell 4.4 10^3/uL (4.4-10.8)
[2024-04-23 05:00] LABS: Chloride 106 mmol/L (98-107); Potassium 4.4 mmol/L (3.5-5.1); Sodium 145 mmol/L (136-145)
[2024-04-23 05:01] LABS: Anion Gap 11 (5-15); Calcium 9.1 mg/dL (8.7-10.4); Carbon Dioxide 28 mmol/L (20-31)
[2024-04-23 05:06] LABS: Glucose 83 mg/dL (74-106)
[2024-04-23 05:07] LABS: BUN/Creatinine Ratio 10.3 (10.0-20.0)
[2024-04-23 05:23] LABS: Blood Urea Nitrogen 61 mg/dL (9-23); Phosphorus 5.8 mg/dL (2.4-5.1)
[2024-04-23] MEDS: CAPTOPRIL 12.5 MG TAB PO SCH (07:00)
--- NOTE | 2024-04-23 07:06 | DVH ---
RIGHT Upper Extremity Venous Duplex Clinical History: edema Comparison: None Findings: Duplex Doppler evaluation of the venous system of the RIGHT lower neck and upper extremity including color Doppler and spectral/pulsed waveform analysis was performed. The internal jugular vein not seen. The subclavian vein is patent on color Doppler evaluation without intraluminal thrombus and demonstra cordell waveform variability. The visualized portion of the brachiocephalic vein is patent on color Doppler evaluation without intr aluminal thrombus and demonstrates waveform variability. The axillary vein demonstrates appropriate compressibility and waveform variability. The brachial veins demonstrate appropriate compressibility and patency on Doppler evaluation. thrombus in the basilic vein. The cephalic vein demonstrates appropriate compressibility and patency on Doppler evaluation. Impression: Thrombus in the basilic vein. If clinical concern/symptoms persist or worsen, short-interval follow-up study is suggested.
[2024-04-23] MEDS: amLODIPine BESYLATE 5 MG TAB PO SCH (07:09)
[2024-04-23] MEDS: BUMETANIDE 2.5mg/10ml (0.25 mg/ml) INJ IV SCH (07:10)
[2024-04-23 07:30] VITALS: PULSE 67; RESP 16; O2SAT 95
[2024-04-23 09:30] LABS: Hepatitis A Ab IgM Negative; Hepatitis B Core IgM Negative (Negative); Hepatitis B Surface Antigen Negative (Negative)
[2024-04-23 09:49] LABS: Hepatitis C Antibody Negative (Negative)
--- NOTE | 2024-04-23 12:42 | DVHPN2 ---
Progress Note Date Seen: Apr 23, 2024 Medical Necessity Reason Pt with a Central, PICC or Fol: No Subjective Patient reports: No new complaints Other Systems: Patient seen and examined by myself on follow-up today Objective vital signs Vital Sign Date Time Temp Pulse Resp B/P (MAP) Pulse Ox O2 Delivery O2 Flow Rate FiO2 04/23/24 10:46 70 13 162/51 (88) 95 04/23/24 07:30 Nasal Cannula* 4 36 04/23/24 00:54 97.2 97.2 Total Intake and Output 04/22/24 04/22/24 04/23/24 15:00 23:00 07:00 Intake Total 62.188 ml 62.188 ml 110 ml Balance 62.188 ml 62.188 ml 110 ml medications Current Medications Medications Dose Ordered Sig/Camacho Route Start Time Stop Time Status Last Admin Dose Admin Diagnostic Test (Pha) 1 strip IQ4HR 04/22/24 20:00 04/23/24 08:01 1 STRIP Insulin Human Regular IQ4HR SC 04/22/24 20:00 Dextrose 50 ml UD PRN IV 04/22/24 17:00 04/23/24 00:14 50 ML Lorazepam 0.5 mg Q6HP PRN PO 04/22/24 17:00 Al Hydrox/Mg Hydrox/Simethicone 30 ml Q6HP PRN PO 04/22/24 17:00 Docusate Sodium 100 mg BIDPRN PRN PO 04/22/24 17:00 Temazepam 15 mg QHSP PRN PO 04/22/24 17:00 Ondansetron HCl 4 mg Q4HP PRN IV 04/22/24 17:00 04/23/24 02:53 4 MG Hydromorphone HCl 1 mg Q4HPRN PRN IV 04/22/24 17:00 Hold Bumetanide 2.5 mg BIDD IV 04/23/24 07:00 04/23/24 07:10 2.5 MG Amlodipine Besylate 10 mg DAILY PO 04/23/24 07:00 04/23/24 09:53 10 MG Captopril 6.25 mg Q8HR PO 04/23/24 07:00 Hold Examination: LUNGS:Normal, CVS:Normal, MSK:Normal laboratory and microbiology Laboratory Tests 04/23/24 04:23 Test 04/23/24 04:23 Range/Units Serum Glucose 83 74-106 mg/dL Problem List/Assessment/Plan Problem List/Assessment/Plan ESRD hemodialysis severe Azotemia due to noncompliance Hypertension Congestive heart failure Exacerbation metabolic acidosis Anemia of chronic kidney disease Recommendations Hemodialysis tomorrow Epogen 28532 IV post hemodialysis Fluid restriction Renal diet Resume home medication We will continue to follow up Plan discussed with: Patient My Orders My Orders Orders - HOANG DE ANDA MD Procedure Category Date Status Time Hemodialysis Orders ORDERS 04/24/24 Transmitted 07:00 Dialysis Nursing [facility] 04/24/24 In Process Message 07:00 Heparin Sodium PHA 04/24/24 In Process (Porcine) 07:00 Heparin Sodium PHA 04/24/24 In Process (Porcine) 07:00 Sodium Chloride 0.9% PHA 04/24/24 In Process 07:00 Document Fluid Input [facility] 04/24/24 In Process And Outpu 07:00 HOANG DE ANDA MD Apr 23, 2024 12:42
[2024-04-23 18:30] VITALS: BP 150/61; PULSE 70; RESP 16; TEMP 98.6; O2SAT 92
[2024-04-23 18:44] VITALS: TEMP 98.4
--- NOTE | 2024-04-23 18:46 | DVHPN2 ---
Subjective in bed resting Changes from previous H/P or p: No Changes Eyes: No Pain, No Vision change, No Conjunctivae inflammation, No Eyelid inflammation, No Other, No Redness ENT: No Ear pain, No Ear discharge, No Nose pain, No Nose discharge, No Nose congestion, No Mouth pain, No Mouth swelling, No Throat pain, No Throat swelling, No Other Cardiovascular: Chest Pain, Palpitations; No Orthopnea, No Paroxysmal Noc. Dyspnea, No Edema, No Lt Headedness, No Other Respiratory: Cough; No Dry; Shortness of breath; No SOB with excertion, No Wheezing, No Hemoptysis, No Pleuritic Pain, No Sputum, No Other Gastrointestinal: Nausea, Vomiting, Abdominal Pain; No Diarrhea, No Constipation, No Melena, No Hematochezia, No Other Genitourinary: No Dysuria, No Frequency, No Incontinence, No Hematuria, No Retention, No Other Musculoskeletal: No other, No neck pain, No shoulder pain, No arm pain, No back pain, No hand pain, No leg pain, No foot pain Skin: No Rash, No Lesions, No Jaundice, No Bruising, No Other Objective Vitals Vital Signs Date Time Temp Pulse Resp B/P (MAP) Pulse Ox O2 Delivery O2 Flow Rate FiO2 04/23/24 18:03 148/40 04/23/24 16:29 69 19 95 04/23/24 07:30 Nasal Cannula* 4 36 04/23/24 00:54 97.2 97.2 Intake/Output Intake and Output 04/23/24 05:00 Intake Total 234.376 ml Balance 234.376 ml Intake IV Total 234.376 ml General Appearance: Alert, Oriented X3 HEENT: Atraumatic Lungs: Clear to auscultation Cardiovascular: Regular rate, Normal S1 Medications Current Medications Medications Dose Ordered Sig/Camacho Route Start Time Stop Time Status Last Admin Dose Admin Diagnostic Test (Pha) 1 strip IQ4HR 04/22/24 20:00 04/23/24 16:00 1 STRIP Insulin Human Regular IQ4HR SC 04/22/24 20:00 Dextrose 50 ml UD PRN IV 04/22/24 17:00 04/23/24 00:14 50 ML Lorazepam 0.5 mg Q6HP PRN PO 04/22/24 17:00 Al Hydrox/Mg Hydrox/Simethicone 30 ml Q6HP PRN PO 04/22/24 17:00 Docusate Sodium 100 mg BIDPRN PRN PO 04/22/24 17:00 Temazepam 15 mg QHSP PRN PO 04/22/24 17:00 Ondansetron HCl 4 mg Q4HP PRN IV 04/22/24 17:00 04/23/24 02:53 4 MG Hydromorphone HCl 1 mg Q4HPRN PRN IV 04/22/24 17:00 Hold Bumetanide 2.5 mg BIDD IV 04/23/24 07:00 04/23/24 18:03 2.5 MG Amlodipine Besylate 10 mg DAILY PO 04/23/24 07:00 04/23/24 09:53 10 MG Captopril 6.25 mg Q8HR PO 04/23/24 07:00 Hold Laboratory Results Laboratory Tests 04/23/24 04:23 Chemistry Test 04/22/24 19:47 04/22/24 22:35 04/23/24 04:23 Calcium Level 9.4 mg/dL (8.7-10.4) 9.4 mg/dL (8.7-10.4) 9.1 mg/dL (8.7-10.4) Phosphorus Level 5.8 mg/dL (2.4-5.1) H Urinalysis Test 04/22/24 17:30 Urine Color Light-yellow (Yellow) Urine Clarity Clear (Clear) Urine pH 6.5 (5.0-9.0) Urine Specific Lamar 1.012 (1.001-1.035) Urine Protein 3+ (Negative) H Urine Ketones Negative (Negative) Urine Blood 2+ /uL (Negative) H Urine Nitrite Negative (Negative) Urine Bilirubin Negative (Negative) Urine Urobilinogen Normal mg/dL (Negative) Urine Leukocyte Esterase 1+ /uL (Negative) Urine RBC 15 /hpf (0 - 4) Urine WBC 9 /hpf (0 - 5) Urine Squamous Epithelial Cells Few /hpf (<5) Urine Bacteria None seen /hpf (None Seen) Urine Glucose 2+ mg/dL (Normal) H Assessment/Plan Assessment/Plan (1) Renal failure (2) Anemia, iron deficiency (3) Uncontrolled diabetes mellitus (4) Hyperkalemia (5) Generalized weakness (6) Acute kidney injury superimposed on chronic kidney disease (7) Nausea vomiting and diarrhea Continue HD per nephrology Hyperkalemia has resolved Plan discussed with: Patient Date of Service: Apr 23, 2024 Billing Provider: MONSE XAVIER MD Common Visit Codes: [id number] INP/OBS CARE(HIGH) MONSE XAVIER MD Apr 23, 2024 18:46
[2024-04-23 20:00] VITALS: PULSE 67; PULSE 70; RESP 16; O2SAT 95
[2024-04-23 21:00] VITALS: BP 147/76; PULSE 70; RESP 16; TEMP 98.8; O2SAT 95
[2024-04-23] MEDS: TEMAZEPAM 15 MG CAP PO PRN (23:55)
[2024-04-24] VITALS (8 sets, daily range): BP systolic 140–174; BP diastolic 53–82; PULSE 65–74; RESP 16–20; TEMP 97.6–98.8; O2SAT 90–96
[2024-04-24 06:57] LABS: Anion Gap 13 (5-15); Carbon Dioxide 25 mmol/L (20-31); Chloride 105 mmol/L (98-107); Sodium 143 mmol/L (136-145)
[2024-04-24 07:00] LABS: Calcium 8.1 mg/dL (8.7-10.4); Potassium 5.2 mmol/L (3.5-5.1)
[2024-04-24 07:03] LABS: BUN/Creatinine Ratio 8.4 (10.0-20.0)
[2024-04-24 07:05] LABS: Glucose 72 mg/dL (74-106)
[2024-04-24 07:06] LABS: Blood Urea Nitrogen 60 mg/dL (9-23)
--- NOTE | 2024-04-24 11:25 | DVHPN2 ---
Progress Note Date Seen: Apr 24, 2024 Medical Necessity Reason Pt with a Central, PICC or Fol: No Subjective Patient reports: No new complaints Other Systems: Patient seen and examined by myself on follow-up today Patient examined hemodialysis, blood pressure stable Objective vital signs Vital Sign Date Time Temp Pulse Resp B/P (MAP) Pulse Ox O2 Delivery O2 Flow Rate FiO2 04/24/24 10:24 140/79 04/24/24 09:00 97.6 65 18 94 97.6 04/23/24 20:00 Nasal Cannula* 2 28 Total Intake and Output 04/23/24 04/23/24 04/24/24 15:00 23:00 07:00 Intake Total 252 ml 450 ml Output Total 100 ml Balance 252 ml 350 ml medications Current Medications Medications Dose Ordered Sig/Camacho Route Start Time Stop Time Status Last Admin Dose Admin Diagnostic Test (Pha) 1 strip IQ4HR 04/22/24 20:00 04/24/24 08:28 1 STRIP Insulin Human Regular IQ4HR SC 04/22/24 20:00 Dextrose 50 ml UD PRN IV 04/22/24 17:00 04/23/24 00:14 50 ML Lorazepam 0.5 mg Q6HP PRN PO 04/22/24 17:00 Al Hydrox/Mg Hydrox/Simethicone 30 ml Q6HP PRN PO 04/22/24 17:00 Docusate Sodium 100 mg BIDPRN PRN PO 04/22/24 17:00 Temazepam 15 mg QHSP PRN PO 04/22/24 17:00 04/23/24 23:55 15 MG Ondansetron HCl 4 mg Q4HP PRN IV 04/22/24 17:00 04/23/24 02:53 4 MG Hydromorphone HCl 1 mg Q4HPRN PRN IV 04/22/24 17:00 Hold Bumetanide 2.5 mg BIDD IV 04/23/24 07:00 04/24/24 05:17 2.5 MG Amlodipine Besylate 10 mg DAILY PO 04/23/24 07:00 04/24/24 10:24 10 MG Captopril 6.25 mg Q8HR PO 04/23/24 07:00 Hold Examination: LUNGS:Normal, CVS:Normal, MSK:Normal laboratory and microbiology Laboratory Tests 04/24/24 06:22 04/23/24 04:23 Test 04/24/24 06:22 Range/Units Serum Glucose 72 L 74-106 mg/dL Microbiology Date/Time Source Procedure Growth Status 04/22/24 19:47 Blood Blood Culture - Preliminary NO GROWTH AFTER 24 HOURS OF INCUBATION. Resulted Problem List/Assessment/Plan Problem List/Assessment/Plan ESRD hemodialysis severe Azotemia due to noncompliance Hypertension Congestive heart failure Exacerbation metabolic acidosis Anemia of chronic kidney disease Recommendations Continue with UF to 3 L as tolerated Epogen 46804 IV post hemodialysis Fluid restriction Renal diet Resume home medication We will continue to follow up Plan discussed with: Patient HOANG DE ANDA MD Apr 24, 2024 11:25
[2024-04-24] MEDS ORDERED: traMADol HCL 50 MG TAB PO PRN (17:00)
--- NOTE | 2024-04-24 17:50 | DVHPN2 ---
Subjective Seen and examined at bedside. Reviewed CT scan, patient will need GI consult, colonic thickening. Will benefit from CT Abd/Pelvis with Oral and IV Contrast. Also has Right Basilic DVT. Start Abx. Changes from previous H/P or p: No Changes Eyes: No Pain, No Vision change, No Conjunctivae inflammation, No Eyelid inflammation, No Other, No Redness ENT: No Ear pain, No Ear discharge, No Nose pain, No Nose discharge, No Nose congestion, No Mouth pain, No Mouth swelling, No Throat pain, No Throat swelling, No Other Cardiovascular: No Chest Pain, No Palpitations, No Orthopnea, No Paroxysmal Noc. Dyspnea, No Edema, No Lt Headedness, No Other Respiratory: No Cough, No Dry, No Shortness of breath, No SOB with excertion, No Wheezing, No Hemoptysis, No Pleuritic Pain, No Sputum, No Other Gastrointestinal: Nausea, Abdominal Pain; No Diarrhea, No Constipation, No Melena, No Hematochezia, No Other Genitourinary: No Dysuria, No Frequency, No Incontinence, No Hematuria, No Retention, No Other Musculoskeletal: No other, No neck pain, No shoulder pain, No arm pain, No back pain, No hand pain, No leg pain, No foot pain Skin: No Rash, No Lesions, No Jaundice, No Bruising, No Other Objective Vitals Vital Signs Date Time Temp Pulse Resp B/P (MAP) Pulse Ox O2 Delivery O2 Flow Rate FiO2 04/24/24 17:08 97.9 68 20 159/53 (88) 93 97.9 04/24/24 08:00 Nasal Cannula* 3 32 Intake/Output Intake and Output 04/24/24 07:00 Intake Total 702 ml Output Total 100 ml Balance 602 ml Intake Oral 702 ml Output Urine Total 100 ml General Appearance: Alert, Oriented X3 HEENT: Atraumatic Neck: Other (Right IJ Line) Lungs: Other (Diminished) Cardiovascular: Regular rate, Normal S1 Abdomen: Other (Tenderness) Extremities: Other (Left Arm Fistula) Medications Current Medications Medications Dose Ordered Sig/Camacho Route Start Time Stop Time Status Last Admin Dose Admin Diagnostic Test (Pha) 1 strip IQ4HR 04/22/24 20:00 04/24/24 16:00 1 STRIP Insulin Human Regular IQ4HR SC 04/22/24 20:00 04/24/24 12:23 4 UNITS Dextrose 50 ml UD PRN IV 04/22/24 17:00 04/23/24 00:14 50 ML Lorazepam 0.5 mg Q6HP PRN PO 04/22/24 17:00 Al Hydrox/Mg Hydrox/Simethicone 30 ml Q6HP PRN PO 04/22/24 17:00 Docusate Sodium 100 mg BIDPRN PRN PO 04/22/24 17:00 Temazepam 15 mg QHSP PRN PO 04/22/24 17:00 04/23/24 23:55 15 MG Ondansetron HCl 4 mg Q4HP PRN IV 04/22/24 17:00 04/23/24 02:53 4 MG Bumetanide 2.5 mg BIDD IV 04/23/24 07:00 04/24/24 05:17 2.5 MG Amlodipine Besylate 10 mg DAILY PO 04/23/24 07:00 04/24/24 10:24 10 MG Acetaminophen 650 mg Q8HR PRN PO 04/24/24 17:30 UNV Ceftriaxone Sodium 50 ml @ 100 mls/hr DAILY@09 IV 04/25/24 09:00 UNV Metronidazole 100 ml @ 100 mls/hr Q8HR IV 04/24/24 22:00 UNV Doxycycline Monohydrate 100 mg Q12HR PO 04/24/24 22:00 UNV Laboratory Results Laboratory Tests 04/23/24 04:23 04/24/24 06:22 Chemistry Test 04/24/24 06:22 Calcium Level 8.1 mg/dL (8.7-10.4) L Urinalysis Test 04/22/24 17:30 Urine Color Light-yellow (Yellow) Urine Clarity Clear (Clear) Urine pH 6.5 (5.0-9.0) Urine Specific [place] 1.012 (1.001-1.035) Urine Protein 3+ (Negative) H Urine Ketones Negative (Negative) Urine Blood 2+ /uL (Negative) H Urine Nitrite Negative (Negative) Urine Bilirubin Negative (Negative) Urine Urobilinogen Normal mg/dL (Negative) Urine Leukocyte Esterase 1+ /uL (Negative) Urine RBC 15 /hpf (0 - 4) Urine WBC 9 /hpf (0 - 5) Urine Squamous Epithelial Cells Few /hpf (<5) Urine Bacteria None seen /hpf (None Seen) Urine Glucose 2+ mg/dL (Normal) H Microbiology Microbiology Date/Time Source Procedure Growth Status 04/22/24 19:47 Blood Blood Culture - Preliminary NO GROWTH AFTER 24 HOURS OF INCUBATION. Resulted Assessment/Plan Assessment/Plan # Right Basilic DVT - Vascular Consult # Possible Ischemic Colitis vs Malignancy- GI Cx. Repeat ABD/PELVIS with Oral and IV Contrast # ESRD on HD # Possible Gram Neg vs Aspiration PNA - Abx # Enlarged Para aortic Lymph Node- CT with Contrast Plan discussed with: Patient My Orders Orders - FRAN SAMPSON MD Procedure Category Date Status Time Acetaminophen Tablet PHA 04/24/24 Logged (Tylenol Tablet) 17:30 * Surgical Consult CONS 04/24/24 Transmitted Complete Blood Count LAB 04/25/24 Verified 04:00 Basic Metabolic Panel LAB 04/25/24 Verified 04:00 * Gi [facility] Family Law Legal Assistant CONS 04/24/24 Transmitted 17:39 Ceftriaxone 1gm/50ml PHA 04/24/24 Logged D5w (Rocephin) 17:45 Ceftriaxone 1gm/50ml PHA 04/25/24 Logged D5w (Rocephin) 09:00 Metronidazole PHA 04/24/24 Logged 500mg/100ml (Flagyl 22:00 Doxycycline Tablet PHA 04/24/24 Logged (Vibramycin Tablet) 22:[address] Ct Abd Pelvis W CT 04/24/24 Logged Con-Oral & Iv 17:39 Carcinoembryonic LAB 04/24/24 Logged Antigen 17:39 Oob To Chair SUMMER 04/24/24 Transmitted 17:39 Incentive Spirometry ORDERS 04/24/24 Transmitted Q 1hr 17:39 Pt Request For Service PT 04/24/24 Logged 17:39 Date of Service: Apr 24, 2024 Billing Provider: FRAN SAMPSON MD Common Visit Codes: [id number] INP/OBS CARE(HIGH) FRAN SAMPSON MD Apr 24, 2024 17:50
[2024-04-24] MEDS: cefTRIAXone 1GM/50ML D5W 50 ML IV ONE (18:24)
--- NOTE | 2024-04-24 18:31 | DVHINCON2 ---
Date of service: Apr 24, [address] Galan Reason for Consultation Abnormal finding GI tract imaging, intestinal wall thickening History of Present Illness 69 year old patient with a past medical history of COPD morbid obesity, diabetes, hypertension, hyperlipidemia, and [place] comes to the ED with complaints of weakness nausea vomiting. She has been having abdominal pain for the last 3 days . Patient had missed dialysis appointment multiple times throughout the week because her stomach was hurting she did not go to dialysis and now is on the 3rd missed appointment of dialysis patient has multiple complaints . Patient was admitted with management of fluid overload. CT scan showed generalized anasarca, pleural effusions, moderate ascites, colonic wall thickening likely related to colonic wall edema and some gastric and small-bowel wall thickening. No GI bleeding or diarrhea is reported Past Medical History COPD, morbid obesity Cardiovascular: HTN Renal/: Chronic renal insuff, Chronic renal failure Endocrine: Diabetes Past Surgical History Family History: Family history: Diabetes mellitus G8 FATHER Allergies: Coded Allergies: Hydrocodone (Verified Allergy, Severe, 04/22/24) Morphine (Verified Allergy, Severe, 04/22/24) Home Meds Active Scripts Carvedilol (COREG) 3.125 Mg Tab, 3.125 MG PO Q12HR for 60 Days, #120 TAB Prov:TASNEEM DE JESUS MD 01/08/17 Metformin Hydrochloride (Glucophage) 500 Mg Tab, 500 MG PO BIDWM, #60 TAB Prov:TASNEEM DE JESUS MD 01/08/17 Spironolactone (Aldactone) 25 Mg Tab, 25 MG PO DAILY, #30 TAB Prov:TASNEEM DE JESUS MD 01/08/17 Cholecalciferol (Vitamin D3) 1,000 Unit Tab, 2000 UNIT PO DAILY, #30 TAB Prov:TSANEEM DE JESUS MD 01/08/17 Captopril (Captopril) 12.5 Mg Tab, 12.5 MG PO Q8HR, #90 TAB Prov:TASNEEM DE JESUS MD 01/08/17 Current Medications Current Medications Medications (Trade) Dose Ordered Sig/Camacho Route PRN Reason Start Time Stop Time Status Last Admin Tramadol HCl (Ultram) 50 mg Q12HR PRN PO pain 04/24/24 17:00 04/24/24 17:27 DC Acetaminophen (Tylenol Tablet) 650 mg Q8HR PRN PO pain 04/24/24 17:30 Ceftriaxone Sodium 50 ml @ 100 mls/hr DAILY@09 IV 04/25/24 09:00 Metronidazole 100 ml @ 100 mls/hr Q8HR IV 04/24/24 22:00 Doxycycline Monohydrate (Vibramycin Tablet) 100 mg Q12HR PO 04/24/24 22:00 Vital Signs Vital Signs Date Time Temp Pulse Resp B/P (MAP) Pulse Ox O2 Delivery O2 Flow Rate FiO2 04/24/24 17:08 97.9 68 20 159/53 (88) 93 97.9 04/24/24 08:00 Nasal Cannula* 3 32 Physical Exam Well-developed obese lady in no acute distress Alert oriented x3 Pupils equal and react to light Lungs show decreased breath sounds at the bases Cardiovascular S1-S2 regular rate rhythm Abdomen is soft distended with minimal tenderness there was no rebound or guarding Extremities show pedal edema and she has a left arm fistula Labs/Diagnostic Data Labs Test 04/24/24 16:28 04/24/24 06:22 04/23/24 04:23 04/22/24 17:30 Range/Units POC Glucose 93 70-106 mg/dl Sodium Level 143 136-145 mmol/L Potassium Level 5.2 H 3.5-5.1 mmol/L Chloride Level 105 98-107 mmol/L Carbon Dioxide Level 25 20-31 mmol/L Anion Gap 13 5-15 Blood Urea Nitrogen 60 H 9-23 mg/dL Creatinine 7.13 H 0.550-1.02 mg/dL Glomerular Filtration Rate Calc 6 >90 mL/min BUN/Creatinine Ratio 8.4 L 10.0-20.0 Serum Glucose 72 L 74-106 mg/dL Calcium Level 8.1 L 8.7-10.4 mg/dL White Blood Count 4.4 4.4-10.8 10^3/uL Red Blood Count 3.36 L 4.0-5.20 10^6/uL Hemoglobin 11.4 #L 12.2-16.2 g/dL Hematocrit 33.3 #L 36.0-46.0 % Mean Corpuscular Volume 99.1 # 80.0-100.0 fL Mean Corpuscular Hemoglobin 34.0 H 28.0-32.0 pg Mean Corpuscular Hemoglobin Concent 34.3 32.0-36.0 g/dL Red Cell Distribution Width 14.1 11.8-14.3 % Platelet Count 146 140-450 10^3/uL Mean Platelet Volume 9.8 6.9-10.8 fL Neutrophils (%) (Auto) 69.3 37.0-80.0 % Lymphocytes (%) (Auto) 14.2 10.0-50.0 % Monocytes (%) (Auto) 12.6 H 0.0-12.0 % Eosinophils (%) (Auto) 3.0 0.0-7.0 % Basophils (%) (Auto) 0.9 0.0-2.0 % Neutrophils # (Auto) 3.1 1.6-8.6 10 ^3/uL Lymphocytes # (Auto) 0.6 0.4-5.4 10 ^3/uL Monocytes # (Auto) 0.6 0-1.3 10 ^3/uL Eosinophils # (Auto) 0.1 0-0.8 10 ^3/uL Basophils # (Auto) 0 0-0.2 10 ^3/uL Nucleated Red Blood Cells 0.1 % Phosphorus Level 5.8 H 2.4-5.1 mg/dL Urine Color Light-yellow Yellow Urine Clarity Clear Clear Urine pH 6.5 5.0-9.0 Urine Specific [place] 1.012 1.001-1.035 Urine Protein 3+ H Negative Urine Ketones Negative Negative Urine Blood 2+ H Negative /uL Urine Nitrite Negative Negative Urine Bilirubin Negative Negative Urine Urobilinogen Normal Negative mg/dL Urine Leukocyte Esterase 1+ Negative /uL Urine RBC 15 0 - 4 /hpf Urine WBC 9 0 - 5 /hpf Urine Squamous Epithelial Cells Few <5 /hpf Urine Bacteria None seen None Seen /hpf Urine Glucose 2+ H Normal mg/dL Test 04/22/24 15:54 04/22/24 13:32 Range/Units Lactic Acid Level 1.1 0.4-2.0 mmol/L Total Bilirubin 1.1 H 0.2-1.0 mg/dL Aspartate Amino Transferase (AST) 36 13-40 U/L Alanine Aminotransferase (ALT) 27 7-40 U/L Alkaline Phosphatase 192 H 46-116 U/L Troponin I High Sensitivity 52 *H </=34 ng/L B-Type Natriuretic Peptide > 5000.00 0-100 pg/mL Total Protein 6.1 5.7-8.2 g/dL Albumin 3.6 3.2-4.8 g/dL Hepatitis A IgM Antibody Negative Hepatitis B Surface Antigen Negative Negative Hepatitis B Core IgM Antibody Negative Negative Hepatitis C Antibody Negative Negative Microbiology Date/Time Source Procedure Growth Status 04/22/24 19:47 Blood Blood Culture - Preliminary NO GROWTH AFTER 24 HOURS OF INCU[address]ATION. Resulted CT SCAN ABD PELVIS IMPRESSION: Limited noncontrast imaging . Small bilateral pleural effusions with associated atelectasis and possible bibasilar pneumonia. [id number] ascites. Moderate bilateral renal atrophy with renal vascular calcifications. Mild wall thickening of the stomach and proximal small bowel loops which may be due to inadequate distention with gastroenteritis not excluded. Mild wall thickening of the colon of the hepatic flexure which may be from the surrounding ascites with colitis not excluded. Diffuse anasarca. Problems(with codes): (1) Anasarca (2) Fluid overload (3) Ascites (4) Nausea vomiting and diarrhea (5) Abdominal pain (6) Generalized weakness (7) Pleural effusion (8) Renal failure Plan/Recommendation Assessment plan I believe the findings on the CT scan with mild thickening of the small bowel and colon are likely related to mucosal edema from fluid overload Patient does not need any emergent endoscopic workup and I will continue to monitor patient with you Continue dialysis as per schedule Outpatient follow up with GI Services to discuss elective panendoscopy once she is medically stabilized Once again thank you for allowing me to participate in the care of this patient Plan discussed with: Other (Dr. Galan) MAYNOR LEMOS MD Apr 24, 2024 18:30
[2024-04-24] MEDS: metroNIDAZOLE 500MG/100ML 100 ML IV SCH (21:01)
[2024-04-24] MEDS: DOXYCYCLINE 100 MG TAB/CAP PO SCH (21:01)
[2024-04-25] VITALS (7 sets, daily range): BP systolic 93–187; BP diastolic 55–78; PULSE 71–82; RESP 16–18; TEMP 97.4–98.9; O2SAT 91–95
--- NOTE | 2024-04-25 07:33 | DVHCONRES ---
Date Seen: Apr 25, 2024 Resident Creating Document: ADAM LEE Jr., MD Referring Physician Kristie Reason for Consultation right basilic vein thrombosis History of Present Illness 69 year old patient with a past medical history of COPD diabetes, hypertension, hyperlipidemia, and [place] comes to the ED with complaints of weakness nausea vomiting patient is a severely poor historian states that she has been having abdominal pain for the last 3 days patient normally has dialysis done and at this point in time has missed dialysis multiple times throughout the week stated that because her stomach was hurting she did not go to dialysis and now is on t he 3rd missed appointment of dialysis patient has multiple complaints multiple symptoms and severe signs of fluid overload patient will need to be admitted. Patient had multiple times IV placement in the right arm unsuccessful had have an IJ placed. Afterwards had developed some right arm swelling developed a episode vein thrombosis. States the arm pain and swelling is uncomfortable but improving. Past Medical History Hypertension diabetes end-stage renal disease Past Surgical History Arm AV fistula Family History: Family history: Diabetes mellitus G8 FATHER Family History Noncontributory Social History Nonsmoker nondrinker Allergies: Coded Allergies: Hydrocodone (Verified Allergy, Severe, 04/22/24) Morphine (Verified Allergy, Severe, 04/22/24) Home Meds Active Scripts Carvedilol (COREG) 3.125 Mg Tab, 3.125 MG PO Q12HR for 60 Days, #120 TAB Prov:TASNEEM DE JESUS MD 01/08/17 Metformin Hydrochloride (Glucophage) 500 Mg Tab, 500 MG PO BIDWM, #60 TAB Prov:TASNEEM DE JESUS MD 01/08/17 Spironolactone (Aldactone) 25 Mg Tab, 25 MG PO DAILY, #30 TAB Prov:TASNEEM DE JESUS MD 01/08/17 Cholecalciferol (Vitamin D3) 1,000 Unit Tab, 2000 UNIT PO DAILY, #30 TAB Prov:TASNEEM DE JESUS MD 01/08/17 Captopril (Captopril) 12.5 Mg Tab, 12.5 MG PO Q8HR, #90 TAB Prov:TASNEEM DE JESUS MD 01/08/17 Current Medications Current Medications Medications (Trade) Dose Ordered Sig/Camacho Route PRN Reason Start Time Stop Time Status Last Admin Tramadol HCl (Ultram) 50 mg Q12HR PRN PO pain 04/24/24 17:00 04/24/24 17:27 DC Acetaminophen (Tylenol Tablet) 650 mg Q8HR PRN PO pain 04/24/24 17:30 Ceftriaxone Sodium 50 ml @ 100 mls/hr DAILY@09 IV 04/25/24 09:00 Metronidazole 100 ml @ 100 mls/hr Q8HR IV 04/24/24 22:00 04/25/24 05:48 Doxycycline Monohydrate (Vibramycin Tablet) 100 mg Q12HR PO 04/24/24 22:00 04/24/24 21:01 Review of Systems All systems reviewed otherwise what is in the HPI Vital Signs Vital Signs Date Time Temp Pulse Resp B/P (MAP) Pulse Ox O2 Delivery O2 Flow Rate FiO2 04/25/24 05:47 156/73 04/25/24 05:00 98.5 71 17 94 98.5 04/24/24 20:00 Nasal Cannula* 2 28 Physical Exam Head eyes ears nose and throat exam eyes are nonicteric conjunctiva is pink neck was supple no JVD no lymphadenopathy no carotid bruits lungs are clear to auscultation heart was regular rate rhythm abdomen is soft nontender with no pulsatile abdominal masses or bruits lower extremities femoral pulses weakly palpable pedal pulses the left arm has a av fistula brachiocephalic with a bruit and thrill. Right arm is slightly swollen with tenderness in the medial aspect of the upper arm. Labs/Diagnostic Data Labs Test 04/25/24 05:35 04/24/24 06:22 04/23/24 04:23 04/22/24 17:30 Range/Units POC Glucose 107 H 70-106 mg/dl Sodium Level 143 136-145 mmol/L Potassium Level 5.2 H 3.5-5.1 mmol/L Chloride Level 105 98-107 mmol/L Carbon Dioxide Level 25 20-31 mmol/L Anion Gap 13 5-15 Blood Urea Nitrogen 60 H 9-23 mg/dL Creatinine 7.13 H 0.550-1.02 mg/dL Glomerular Filtration Rate Calc 6 >90 mL/min BUN/Creatinine Ratio 8.4 L 10.0-20.0 Serum Glucose 72 L 74-106 mg/dL Calcium Level 8.1 L 8.7-10.4 mg/dL Carcinoembryonic Antigen 3.13 <=5.0 ng/mL White Blood Count 4.4 4.4-10.8 10^3/uL Red Blood Count 3.36 L 4.0-5.20 10^6/uL Hemoglobin 11.4 #L 12.2-16.2 g/dL Hematocrit 33.3 #L 36.0-46.0 % Mean Corpuscular Volume 99.1 # 80.0-100.0 fL Mean Corpuscular Hemoglobin 34.0 H 28.0-32.0 pg Mean Corpuscular Hemoglobin Concent 34.3 32.0-36.0 g/dL Red Cell Distribution Width 14.1 11.8-14.3 % Platelet Count 146 140-450 10^3/uL Mean Platelet Volume 9.8 6.9-10.8 fL Neutrophils (%) (Auto) 69.3 37.0-80.0 % Lymphocytes (%) (Auto) 14.2 10.0-50.0 % Monocytes (%) (Auto) 12.6 H 0.0-12.0 % Eosinophils (%) (Auto) 3.0 0.0-7.0 % Basophils (%) (Auto) 0.9 0.0-2.0 % Neutrophils # (Auto) 3.1 1.6-8.6 10 ^3/uL Lymphocytes # (Auto) 0.6 0.4-5.4 10 ^3/uL Monocytes # (Auto) 0.6 0-1.3 10 ^3/uL Eosinophils # (Auto) 0.1 0-0.8 10 ^3/uL Basophils # (Auto) 0 0-0.2 10 ^3/uL Nucleated Red Blood Cells 0.1 % Phosphorus Level 5.8 H 2.4-5.1 mg/dL Urine Color Light-yellow Yellow Urine Clarity Clear Clear Urine pH 6.5 5.0-9.0 Urine Specific [place] 1.012 1.001-1.035 Urine Protein 3+ H Negative Urine Ketones Negative Negative Urine Blood 2+ H Negative /uL Urine Nitrite Negative Negative Urine Bilirubin Negative Negative Urine Urobilinogen Normal Negative mg/dL Urine Leukocyte Esterase 1+ Negative /uL Urine RBC 15 0 - 4 /hpf Urine WBC 9 0 - 5 /hpf Urine Squamous Epithelial Cells Few <5 /hpf Urine Bacteria None seen None Seen /hpf Urine Glucose 2+ H Normal mg/dL Test 04/22/24 15:54 04/22/24 13:32 Range/Units Lactic Acid Level 1.1 0.4-2.0 mmol/L Total Bilirubin 1.1 H 0.2-1.0 mg/dL Aspartate Amino Transferase (AST) 36 13-40 U/L Alanine Aminotransferase (ALT) 27 7-40 U/L Alkaline Phosphatase 192 H 46-116 U/L Troponin I High Sensitivity 52 *H </=34 ng/L B-Type Natriuretic Peptide > 5000.00 0-100 pg/mL Total Protein 6.1 5.7-8.2 g/dL Albumin 3.6 3.2-4.8 g/dL Hepatitis A IgM Antibody Negative Hepatitis B Surface Antigen Negative Negative Hepatitis B Core IgM Antibody Negative Negative Hepatitis C Antibody Negative Negative Microbiology Date/Time Source Procedure Growth Status 04/22/24 19:47 Blood Blood Culture - Preliminary NO GROWTH AFTER 48 HOURS OF INCUBATION. Resulted RIGHT Upper Extremity Venous Duplex Clinical History: edema Comparison: None Findings: Duplex Doppler evaluation of the venous system of the RIGHT lower neck and upper extremity including color Doppler and spectral/pulsed waveform analysis was performed. The internal jugular vein not seen. The subclavian vein is patent on color Doppler evaluation without intraluminal thrombus and demonstrates waveform variability. The visualized portion of the brachiocephalic vein is patent on color Doppler evaluation without intraluminal thrombus and demonstrates waveform variability. The axillary vein demonstrates appropriate compressibility and waveform variability. The brachial veins demonstrate appropriate compressibility and patency on Doppler evaluation. thrombus in the basilic vein. The cephalic vein demonstrates appropriate compressibility and patency on Doppler evaluation. Impression: Thrombus in the basilic vein. Assessment Right arm basilic vein thrombosis Recommend warm compresses elevate the arm Repeat ultrasound in 5 days Continue use the left arm AV fistula as normal. Plan discussed with: Patient ADAM LEE Jr., MD Apr 25, 2024 07:33
[2024-04-25 08:06] LABS: Chloride 103 mmol/L (98-107); Sodium 139 mmol/L (136-145)
[2024-04-25 08:07] LABS: Anion Gap 12 (5-15); Carbon Dioxide 24 mmol/L (20-31)
[2024-04-25 08:08] LABS: Calcium 8.1 mg/dL (8.7-10.4)
[2024-04-25 08:10] LABS: Potassium 5.6 mmol/L (3.5-5.1)
[2024-04-25 08:12] LABS: BUN/Creatinine Ratio 8.8 (10.0-20.0); Glucose 92 mg/dL (74-106)
[2024-04-25 08:13] LABS: Blood Urea Nitrogen 71 mg/dL (9-23)
[2024-04-25 08:25] LABS: Hematocrit 31.8 % (36.0-46.0); Hemoglobin 10.7 g/dL (12.2-16.2); Mean Corpuscular Hemoglobin 34.1 pg (28.0-32.0); Mean Corpuscular Hgb Conc. 33.7 g/dL (32.0-36.0); Mean Corpuscular Volume 101.2 fL (80.0-100.0); Platelet Count (auto) 138 10^3/uL (140-450); Red Blood Cells 3.14 10^6/uL (4.0-5.20); Red Cell Distribution Width 14.3 % (11.8-14.3); White Blood Cell 4.9 10^3/uL (4.4-10.8)
[2024-04-25 08:27] LABS: Band Neutrophils % (manual) 0; Basophils % (manual) 0 (0.0-2.0); Blast Cells 0; Metamyelocytes % 0; Myelocytes % 0; Promyelocytes % 0; Reactive Lymphocytes 0
[2024-04-25] MEDS ORDERED: SODIUM ZIRCONIUM CYCL 10 GM PAK PO SCH (09:00)
--- NOTE | 2024-04-25 11:01 | DVHPN2 ---
Progress Note Date Seen: Apr 25, 2024 Medical Necessity Reason Pt with a Central, PICC or Fol: No Subjective Patient reports: No new complaints Other Systems: Patient seen and examined by myself on follow-up today Patient examined hemodialysis, blood pressure stable Objective vital signs Vital Sign Date Time Temp Pulse Resp B/P (MAP) Pulse Ox O2 Delivery O2 Flow Rate FiO2 04/25/24 05:47 156/73 04/25/24 05:00 98.5 71 17 94 98.5 04/24/24 20:00 Nasal Cannula* 2 28 Total Intake and Output 04/24/24 04/24/24 04/25/24 15:00 23:00 07:00 Intake Total 150 ml 850 ml Output Total 150 ml Balance 150 ml 700 ml medications Current Medications Medications Dose Ordered Sig/Camacho Route Start Time Stop Time Status Last Admin Dose Admin Diagnostic Test (Pha) 1 strip IQ4HR 04/22/24 20:00 04/25/24 08:00 1 STRIP Insulin Human Regular IQ4HR SC 04/22/24 20:00 04/24/24 12:23 4 UNITS Dextrose 50 ml UD PRN IV 04/22/24 17:00 04/23/24 00:14 50 ML Lorazepam 0.5 mg Q6HP PRN PO 04/22/24 17:00 Al Hydrox/Mg Hydrox/Simethicone 30 ml Q6HP PRN PO 04/22/24 17:00 Docusate Sodium 100 mg BIDPRN PRN PO 04/22/24 17:00 Temazepam 15 mg QHSP PRN PO 04/22/24 17:00 04/23/24 23:55 15 MG Ondansetron HCl 4 mg Q4HP PRN IV 04/22/24 17:00 04/23/24 02:53 4 MG Bumetanide 2.5 mg BIDD IV 04/23/24 07:00 04/25/24 05:47 2.5 MG Amlodipine Besylate 10 mg DAILY PO 04/23/24 07:00 04/24/24 10:24 10 MG Acetaminophen 650 mg Q8HR PRN PO 04/24/24 17:30 Ceftriaxone Sodium 50 ml @ 100 mls/hr DAILY@09 IV 04/25/24 09:00 Metronidazole 100 ml @ 100 mls/hr Q8HR IV 04/24/24 22:00 04/25/24 05:48 100 MLS/HR Doxycycline Monohydrate 100 mg Q12HR PO 04/24/24 22:00 04/24/24 21:01 100 MG Zirconium Oxide 10 gm Q4H PO 04/25/24 10:00 04/25/24 14:01 Examination: LUNGS:Normal, CVS:Normal, MSK:Normal laboratory and microbiology Laboratory Tests 04/25/24 07:39 Test 04/25/24 07:39 Range/Units Serum Glucose 92 74-106 mg/dL Microbiology Date/Time Source Procedure Growth Status 04/22/24 19:47 Blood Blood Culture - Preliminary NO GROWTH AFTER 48 HOURS OF INCUBATION. Resulted Problem List/Assessment/Plan Problem List/Assessment/Plan ESRD on hemodialysis, from [facility] severe Azotemia due to noncompliance Hypertension Congestive heart failure Exacerbation metabolic acidosis Anemia of chronic kidney disease Recommendations Continue with UF to 2-3 L as tolerated Epogen 54768 IV post hemodialysis Fluid restriction Renal diet Resume home medication Awaiting social service for outpatient chair time We will continue to follow up Plan discussed with: Patient My Orders My Orders Orders - HOANG DE ANDA MD Procedure Category Date Status Time Hemodialysis Orders ORDERS 04/25/24 Transmitted 09:29 HOANG DE ANDA MD Apr 25, 2024 11:01
[2024-04-25] MEDS: cefTRIAXone 1GM/50ML D5W 50 ML IV SCH (11:22)
[2024-04-25 11:33] LABS: Eosinophils % (manual) 6 (0-7); Lymphocytes % (manual) 7 (10.0-50.0); Monocytes % (manual) 8 (0-12)
[2024-04-25 11:34] LABS: Macrocytosis Slight; Platelet Estimate Decreased
--- NOTE | 2024-04-25 13:42 | DVHPN2 ---
Subjective Seen and examined at bedside. cont HD. Needs outpatient HD. Cont Abx. Changes from previous H/P or p: No Changes Eyes: No Pain, No Vision change, No Conjunctivae inflammation, No Eyelid inflammation, No Other, No Redness ENT: No Ear pain, No Ear discharge, No Nose pain, No Nose discharge, No Nose congestion, No Mouth pain, No Mouth swelling, No Throat pain, No Throat swelling, No Other Cardiovascular: No Chest Pain, No Palpitations, No Orthopnea, No Paroxysmal Noc. Dyspnea, No Edema, No Lt Headedness, No Other Respiratory: No Cough, No Dry, No Shortness of breath, No SOB with excertion, No Wheezing, No Hemoptysis, No Pleuritic Pain, No Sputum, No Other Gastrointestinal: Nausea, Abdominal Pain; No Diarrhea, No Constipation, No Melena, No Hematochezia, No Other Genitourinary: No Dysuria, No Frequency, No Incontinence, No Hematuria, No Retention, No Other Musculoskeletal: No other, No neck pain, No shoulder pain, No arm pain, No back pain, No hand pain, No leg pain, No foot pain Skin: No Rash, No Lesions, No Jaundice, No Bruising, No Other Objective Vitals Vital Signs Date Time Temp Pulse Resp B/P (MAP) Pulse Ox O2 Delivery O2 Flow Rate FiO2 04/25/24 11:39 175/77 04/25/24 05:00 98.5 71 17 94 98.5 04/24/24 20:00 Nasal Cannula* 2 28 Intake/Output Intake and Output 04/25/24 07:00 Intake Total 1000 ml Output Total 150 ml Balance 850 ml Intake Oral 750 ml IV Total 250 ml Output Urine Total 150 ml # Bowel Movements 1 General Appearance: Alert, Oriented X3 HEENT: Atraumatic Neck: Other (Right IJ Line) Lungs: Other (Diminished) Cardiovascular: Regular rate, Normal S1 Abdomen: Other (Tenderness) Extremities: Other (Left Arm Fistula) Medications Current Medications Medications Dose Ordered Sig/Camacho Route Start Time Stop Time Status Last Admin Dose Admin Diagnostic Test (Pha) 1 strip IQ4HR 04/22/24 20:00 04/25/24 12:14 1 STRIP Insulin Human Regular IQ4HR SC 04/22/24 20:00 04/24/24 12:23 4 UNITS Dextrose 50 ml UD PRN IV 04/22/24 17:00 04/23/24 00:14 50 ML Lorazepam 0.5 mg Q6HP PRN PO 04/22/24 17:00 Al Hydrox/Mg Hydrox/Simethicone 30 ml Q6HP PRN PO 04/22/24 17:00 Docusate Sodium 100 mg BIDPRN PRN PO 04/22/24 17:00 Temazepam 15 mg QHSP PRN PO 04/22/24 17:00 04/23/24 23:55 15 MG Ondansetron HCl 4 mg Q4HP PRN IV 04/22/24 17:00 04/23/24 02:53 4 MG Bumetanide 2.5 mg BIDD IV 04/23/24 07:00 04/25/24 05:47 2.5 MG Amlodipine Besylate 10 mg DAILY PO 04/23/24 07:00 04/25/24 11:39 10 MG Acetaminophen 650 mg Q8HR PRN PO 04/24/24 17:30 Ceftriaxone Sodium 50 ml @ 100 mls/hr DAILY@09 IV 04/25/24 09:00 04/25/24 11:22 100 MLS/HR Metronidazole 100 ml @ 100 mls/hr Q8HR IV 04/24/24 22:00 04/25/24 05:48 100 MLS/HR Doxycycline Monohydrate 100 mg Q12HR PO 04/24/24 22:00 04/25/24 11:39 100 MG Zirconium Oxide 10 gm Q4H PO 04/25/24 10:00 04/25/24 14:01 Laboratory Results Laboratory Tests 04/25/24 07:39 Chemistry Test 04/25/24 07:39 Calcium Level 8.1 mg/dL (8.7-10.4) L Urinalysis Test 04/22/24 17:30 Urine Color Light-yellow (Yellow) Urine Clarity Clear (Clear) Urine pH 6.5 (5.0-9.0) Urine Specific [place] 1.012 (1.001-1.035) Urine Protein 3+ (Negative) H Urine Ketones Negative (Negative) Urine Blood 2+ /uL (Negative) H Urine Nitrite Negative (Negative) Urine Bilirubin Negative (Negative) Urine Urobilinogen Normal mg/dL (Negative) Urine Leukocyte Esterase 1+ /uL (Negative) Urine RBC 15 /hpf (0 - 4) Urine WBC 9 /hpf (0 - 5) Urine Squamous Epithelial Cells Few /hpf (<5) Urine Bacteria None seen /hpf (None Seen) Urine Glucose 2+ mg/dL (Normal) H Microbiology Microbiology Date/Time Source Procedure Growth Status 04/22/24 19:47 Blood Blood Culture - Preliminary NO GROWTH AFTER 48 HOURS OF INCUBATION. Resulted Assessment/Plan Assessment/Plan # Right Basilic DVT - Vascular Consult noted. US in 5 days # Possible Ischemic Colitis vs Malignancy- GI Cx. Repeat ABD/PELVIS with Oral and IV Contrast awaiting # ESRD on HD # Possible Gram Neg vs Aspiration PNA - Abx # Enlarged Para aortic Lymph Node- CT with Contrast Plan discussed with: Patient My Orders Orders - FRAN SAMPSON MD Procedure Category Date Status Time Acetaminophen Tablet PHA 04/24/24 In Process (Tylenol Tablet) 17:30 * Surgical Consult CONS 04/24/24 Transmitted * Gi D[facility] Plisse Machine Operator Helper CONS 04/24/24 Transmitted 17:39 Ceftriaxone 1gm/50ml PHA 04/25/24 In Process D5w (Rocephin) 09:00 Metronidazole PHA 04/24/24 In Process 500mg/100ml (Flagyl 22:00 Doxycycline Tablet PHA 04/24/24 In Process (Vibramycin Tablet) 22:00 Oob To Chair SUMMER 04/24/24 In Process 17:39 Incentive Spirometry ORDERS 04/24/24 Transmitted Q 1hr 17:39 Pt Request For Service PT 04/24/24 Logged 17:39 Incentive Spirometry ORDERS 04/24/24 Transmitted Q 1hr 17:[address] Ct [address] Pelvis W CT 04/25/24 Logged Con-Oral & Iv 07:00 Sodium Zirconium PHA 04/25/24 In Process Cyclosilicate 10:00 Pharmacy [facility] 04/25/24 In Process Clarification: 09:51 Date of Service: Apr 25, 2024 Billing Provider: FRAN SAMPSON MD Common Visit Codes: [id number] INP/OBS CARE(HIGH) FRAN SAMPSON MD Apr 25, 2024 13:42
[2024-04-25] MEDS: SODIUM ZIRCONIUM CYCL 10 GM PAK PO SCH (14:28)
--- NOTE | 2024-04-25 14:32 | DVHSR ---
APPROVED REPORT EXAM: Two-dimensional and M-mode echocardiogram with Doppler and color Doppler. Blood Pressure: 156/73 mmHg INDICATION Heart Failure RISK FACTORS Height: 5'1", Weight: 122 DIMENSIONS LVDd5.2 (3.8-5.7cm)LA (2D)5.0 (1.9-4.0cm)Aortic Root2.8 (2.0-3.7cm) LVDs3.2 (2.5-4.0cm)LA (MM) (1.9-4.0cm)Aortic Cusp Exc1.5 (1.5-2.0cm) EF (%) 68.0 (55-70%)Rt. Atrium4.1 (1.9-4.0cm)Asc. Aorta2.9 cm IVSd1.0 (0.7-1.1cm)RV (D)4.4 (1.8-2.4cm) PWd0.8 (0.7-1.1cm) Mitral Valve MitralMitral Stenosis E wave1.28m/sMV Mean GR.mmHg A wave1.05m/sMV Peak GR.mmHg E/A ratio1.22D MVAcm2 DECEL [id number] 1/2 Timems Aortic Valve Aortic ValveAortic Stenosis V10.79m/Lm Mean GR.5mmHg V21.49m/Lm Peak GR.9mmHg LVOT Diameter1.9 (1.8-2.4cm)Doppler AVA1.50cm2 Pulmonic Valve V20.91m/s Tricuspid Valve TR Velocity3.20m/s [id number] Conclusion Moderate size circumferential pericardial effusion. No clear signs of increased intrapericardial pre ssure, as mitral and tricuspid flow Doppler did not change with the respiratory phase. Normal left ventricular size and dimension. Normal left ventricular systolic function estimated ejec tion fraction of 50%. There is a grade 1 diastolic dysfunction. Normal right ventricular size and dimension. Normal right ventricular systolic function. Moderate t o severely elevated right ventricular systolic pressure at 57 mm of mercury Borderline dilated right and left atria. There is moderate mitral valve regurgitation. There is moderate tricuspid valve regurgitation. The aortic valve appears normal in structure and function. The pulmonary valve is grossly normal. No pericardial effusion.
--- NOTE | 2024-04-25 14:34 | DVH ---
Exam: CT CT ABD PELVIS W CON-ORAL IV History: Lymph Node enlargment. R/o Malignancy TECHNIQUE: A digital global account executive image was obtained. During the uneventful, intravenous administration of c ontrast material, multislice data acquisition was obtained through the abdomen and pelvis. The data s et was subsequently reconstructed into axial images. Images were reviewed on a work station using a c ombination of axial and multiplanar using a variety of window levels and settings. 100 cc of Omnipaqu e 300 contrast was injected intravenously. All CT scans at this medical facility are performed using dose modulation techniques as appropriate t o a performed exam including the following:Automated exposure control was utilized; adjustment of the MA and/or KV according to patient size; and use of iterative reconstruction technique. Radiation Dose Information: CT Dose: CTDI volume is 7 mGy. Dose-length product is 390 mGy*cm Comparison: CT CT AB PEL WO CON-NO ORAL OR IV on DOS: 04/22/24 FINDINGS: The kidneys are small in size with renal vascular calcifications. There is no evidence of nephrolithi asis or hydronephrosis. Theliver, gallbladder, pancreas, adrenal glands, and spleen appear within normal limits. There is [id number] amount of ascites. There is no free intraperitoneal air. There are multipl e subcentimeter para-aortic retroperitoneal lymph nodes measuring up to 8 mm. The stomach grossly appears unremarkable. The small and large bowel loops demonstrate normal caliber. There is contrast seen throughout the colon. There are calcified atherosclerotic changes in the abdominal aorta throughout the abdominal vasculatu re. There is an endovascular graft in the upper abdominal aorta just below the diaphragm with adjacen t aneurysm coils. There is moderate associated streak artifact. The IVC appears within normal limits. There is a Armando catheter within the bladder which is decompressed. Pelvic organs is unremarkable. T here is no gross evidence of a pelvic mass or lymphadenopathy. There is free fluid in the pelvis. There are small bilateral pleural effusions with atelectasis in the lung bases. There is moderate car diomegaly. There is pericardial effusion. There is no acute osseous abnormality. There is diffuse anasarca in the soft tissues. IMPRESSION: 1. Small to moderate amount of ascites. There are small bilateral pleural effusions with atelectasis in the lung bases. There is pericardial effusion. 2. There are calcified atherosclerotic changes in the abdominal aorta and throughout the abdominal va sculature. There is an endovascular graft in the upper abdominal aorta just below the diaphragm with adjacent aneurysm coils. 3. The kidneys are small in size with renal vascular calcifications. 4. There are multiple nonspecific subcentimeter para-aortic retroperitoneal lymph nodes measuring up to 8 mm. These may be reactive in nature.. 5. Moderate cardiomegaly. HS:Y
--- NOTE | 2024-04-25 20:25 | DVHPN2 ---
Progress Note - Dictate Date Seen: Apr 25, 2024 Medical Necessity Reason Pt with a Central, PICC or Fol: No Subjective Patient seen at bedside She had two recorded loose bowel movements today with some incontinence ; liquid brown stool without any bleeding There was no nausea vomiting or abdominal pain Patient does not recall having any prior colonoscopy or endoscopy Potassium 5.8, BUN 71, creatinine 8.04 vital signs Vital Sign Date Time Temp Pulse Resp B/P (MAP) Pulse Ox O2 Delivery O2 Flow Rate FiO2 04/25/24 17:43 149/74 04/25/24 17:00 98.0 81 16 93 98.0 04/25/24 08:00 Nasal Cannula* 3 32 Total Intake and Output 04/24/24 04/24/24 04/25/24 15:00 23:00 07:00 Intake Total 150 ml 850 ml Output Total 150 ml Balance 150 ml 700 ml medications Current Medications Medications Dose Ordered Sig/Camacho Route Start Time Stop Time Status Last Admin Dose Admin Diagnostic Test (Pha) 1 strip IQ4HR 04/22/24 20:00 04/25/24 16:20 1 STRIP Insulin Human Regular IQ4HR SC 04/22/24 20:00 04/24/24 12:23 4 UNITS Dextrose 50 ml UD PRN IV 04/22/24 17:00 04/23/24 00:14 50 ML Lorazepam 0.5 mg Q6HP PRN PO 04/22/24 17:00 Al Hydrox/Mg Hydrox/Simethicone 30 ml Q6HP PRN PO 04/22/24 17:00 Docusate Sodium 100 mg BIDPRN PRN PO 04/22/24 17:00 Temazepam 15 mg QHSP PRN PO 04/22/24 17:00 04/23/24 23:55 15 MG Ondansetron HCl 4 mg Q4HP PRN IV 04/22/24 17:00 04/23/24 02:53 4 MG Bumetanide 2.5 mg BIDD IV 04/23/24 07:00 04/25/24 17:43 2.5 MG Amlodipine Besylate 10 mg DAILY PO 04/23/24 07:00 04/25/24 11:39 10 MG Acetaminophen 650 mg Q8HR PRN PO 04/24/24 17:30 Ceftriaxone Sodium 50 ml @ 100 mls/hr DAILY@09 IV 04/25/24 09:00 04/25/24 11:22 100 MLS/HR Metronidazole 100 ml @ 100 mls/hr Q8HR IV 04/24/24 22:00 04/25/24 14:28 100 MLS/HR Doxycycline Monohydrate 100 mg Q12HR PO 04/24/24 22:00 04/25/24 11:39 100 MG objective Well-developed lady in no acute distress Alert oriented x3 Pupils equal and react to light Lungs show decreased breath sounds at the bases Cardiovascular S1-S2 regular rate rhythm Abdomen is soft distended with minimal tenderness there was no rebound or guarding Extremities show pedal edema and she has a left arm fistula laboratory and microbiology Laboratory Tests 04/25/24 07:39 Test 04/25/24 07:39 Range/Units Serum Glucose 92 74-106 mg/dL Problems(with codes): (1) Ascites (2) Anasarca (3) Fluid overload (4) Acute kidney injury superimposed on chronic kidney disease (5) Nausea vomiting and diarrhea (6) Abdominal pain (7) Generalized weakness Prognosis Plan Stool for WBC bacterial culture and occult blood were checked Stool for occult blood was negative, stool for WBC negative no WBCs seen which points against colitis Patient is thickening of the intestinal wall is likely due to fluid overload and intestinal wall edema Patient was on IV antibiotics for PNA She needs to continue hemodialysis and have extra fluid removed for fluid overload management Patient stated she had not had a colonoscopy before and at this time did not want a colonoscopy I will continue to follow up patient with you Plan discussed with: Patient, Other (Nurse) MAYNOR LEMOS MD Apr 25, 2024 20:25
[2024-04-26] VITALS (9 sets, daily range): BP systolic 73–130; BP diastolic 29–62; PULSE 67–80; RESP 16–18; TEMP 97.8–98.6; O2SAT 92–94
--- NOTE | 2024-04-26 08:56 | DVHPN2 ---
Progress Note - Dictate Date Seen: Apr 26, 2024 Medical Necessity Reason Pt with a Central, PICC or Fol: No Subjective Patient seen at bedside ; awake alert in no acute distress, She is tolerating a regular breakfast Patient states she only has minimal diarrhea There was no nausea vomiting or abdominal pain Patient does not recall having any prior colonoscopy or endoscopy Potassium 5.8, BUN 71, creatinine 8.04 Stool for WBC and occult blood were negative vital signs Vital Sign Date Time Temp Pulse Resp B/P (MAP) Pulse Ox O2 Delivery O2 Flow Rate FiO2 04/26/24 06:31 101/62 04/26/24 05:00 97.8 69 17 94 97.8 04/25/24 20:00 Nasal Cannula* 2 28 Total Intake and Output 04/25/24 04/25/24 04/26/24 15:00 23:00 07:00 Intake Total 50 ml 600 ml 475 ml Output Total 100 ml Balance 50 ml 600 ml 375 ml medications Current Medications Medications Dose Ordered Sig/Camacho Route Start Time Stop Time Status Last Admin Dose Admin Diagnostic Test (Pha) 1 strip IQ4HR 04/22/24 20:00 04/26/24 06:31 1 STRIP Insulin Human Regular IQ4HR SC 04/22/24 20:00 04/24/24 12:23 4 UNITS Dextrose 50 ml UD PRN IV 04/22/24 17:00 04/23/24 00:14 50 ML Lorazepam 0.5 mg Q6HP PRN PO 04/22/24 17:00 Al Hydrox/Mg Hydrox/Simethicone 30 ml Q6HP PRN PO 04/22/24 17:00 Docusate Sodium 100 mg BIDPRN PRN PO 04/22/24 17:00 Temazepam 15 mg QHSP PRN PO 04/22/24 17:00 04/25/24 23:55 15 MG Ondansetron HCl 4 mg Q4HP PRN IV 04/22/24 17:00 04/23/24 02:53 4 MG Bumetanide 2.5 mg BIDD IV 04/23/24 07:00 04/26/24 06:31 2.5 MG Amlodipine Besylate 10 mg DAILY PO 04/23/24 07:00 04/25/24 11:39 10 MG Acetaminophen 650 mg Q8HR PRN PO 04/24/24 17:30 Ceftriaxone Sodium 50 ml @ 100 mls/hr DAILY@09 IV 04/25/24 09:00 04/25/24 11:22 100 MLS/HR Metronidazole 100 ml @ 100 mls/hr Q8HR IV 04/24/24 22:00 04/26/24 06:32 100 MLS/HR Doxycycline Monohydrate 100 mg Q12HR PO 04/24/24 22:00 04/25/24 21:13 100 MG objective Well-developed lady in no acute distress Alert oriented x3 Pupils equal and react to light Lungs show decreased breath sounds at the bases Cardiovascular S1-S2 regular rate rhythm Abdomen is soft distended with minimal tenderness there was no rebound or guarding Extremities show pedal edema and she has a left arm fistula laboratory and microbiology Laboratory Tests 04/25/24 07:39 Test 04/25/24 07:39 Range/Units Serum Glucose 92 74-106 mg/dL Problems(with codes): (1) Ascites (2) Anasarca (3) Fluid overload (4) Acute kidney injury superimposed on chronic kidney disease (5) Nausea vomiting and diarrhea (6) Abdominal pain (7) Generalized weakness (8) Cardiac arrhythmia (9) Hyperkalemia (10) Renal failure (11) Pleural effusion Prognosis Plan Stool for occult blood was negative, stool for WBC negative no WBCs seen which points against colitis Patient is thickening of the intestinal wall is likely due to fluid overload and intestinal wall edema Patient was on IV antibiotics for PNA She needs to continue hemodialysis and have extra fluid removed for fluid overload management Patient stated she had not had a colonoscopy before and at this time did not want a colonoscopy Inpatient was encouraged to follow up in my office as an outpatient to discuss elective panendoscopy once she is medically stabilized I will continue to follow up patient with you Plan discussed with: Patient MAYNOR LEMOS MD Apr 26, 2024 08:56
--- NOTE | 2024-04-26 11:39 | DVHCONRES ---
Date Seen: Apr 26, 2024 Resident Creating Document: SUSY,ANNABEL RESIDENT Reason for Consultation Pericardial effusion History of Present Illness Gama Em is a 69-year-old female with a PMH of COPD, type 2 DM, HTN, HLD, ESRD on HD presented to the ED with the chief complaints of weakness and ab dominal pain. Patient reported she has been more tired than usual, missed her dialysis last week, and reported difficulty breathing which prompted her to visit ED. patient does report intermittent vague chest pain for sometimes. Patient does report she has home oxygen, difficulty in exertion and sleeping due to shortness of breath. On my assessment patient denies chest pain, lee phoresis, dizziness, palpitations and other associated symptoms. Patient reported last year she underwent CPR during dialysis session but no follow up was done after that. Past Medical History COPD, type 2 DM, HTN, HLD, ESRD on HD Past Surgical History Denies Family History: Family history: Diabetes mellitus G8 FATHER Family History Reviewed, noncontributory Social History Lives with family. Denies smoking, alcohol and other drug abuse Allergies: Coded Allergies: Hydrocodone (Verified Allergy, Severe, 04/22/24) Morphine (Verified Allergy, Severe, 04/22/24) Home Meds Active Scripts Carvedilol (COREG) 3.125 Mg Tab, 3.125 MG PO Q12HR for 60 Days, #120 TAB Prov:TASNEEM DE JESUS MD 01/08/17 Metformin Hydrochloride (Glucophage) 500 Mg Tab, 500 MG PO BIDWM, #60 TAB Prov:TASNEEM DE JESUS MD 01/08/17 Spironolactone (Aldactone) 25 Mg Tab, 25 MG PO DAILY, #30 TAB Prov:TASNEEM DE JESUS MD 01/08/17 Cholecalciferol (Vitamin D3) 1,000 Unit Tab, 2000 UNIT PO DAILY, #30 TAB Prov:TASNEEM DE JESUS MD 01/08/17 Captopril (Captopril) 12.5 Mg Tab, 12.5 MG PO Q8HR, #90 TAB Prov:TASNEEM DE JESUS MD 01/08/17 Review of Systems Seen and examined at the bedside, reported improvement in her symptoms since admission. Currently on oxygen at [place] for shortness of breath. Vital Signs Vital Signs Date Time Temp Pulse Resp B/P (MAP) Pulse Ox O2 Delivery O2 Flow Rate FiO2 04/26/24 10:01 130/67 04/26/24 09:00 98.1 67 16 93 98.1 04/25/24 20:00 Nasal Cannula* 2 28 Physical Exam General Appearance: Alert, Oriented X3, Cooperative, mild distress HEENT: Atraumatic, Mucous membranes moist/pink Respiratory: Clear to auscultation, Normal air movement, No added sounds Cardiovascular: Regular rate, Normal S1, Normal S2, No murmurs Abdominal: Active bowel sounds, Soft, no distention, no tenderness Extremities: No edema, Normal pulses, No tenderness/swelling, fistula on left arm Skin: No Significant rash, except past surgical scars Neuro: Normal speech, sensorimotor deficits none Psych/Mental Status: Mental status NL, Mood NL Nurse was there as bobone during examination Labs/Diagnostic Data Labs Test 04/26/24 08:19 04/25/24 14:05 04/25/24 07:39 04/24/24 06:22 Range/Units POC Glucose 118 H 70-106 mg/dl Stool Occult Blood Negative Negative Stool Occult Blood Sample #3 Negative Stool for White Cells None seen White Blood Count 4.9 4.4-10.8 10^3/uL Red Blood Count 3.14 L 4.0-5.20 10^6/uL Hemoglobin 10.7 L 12.2-16.2 g/dL Hematocrit 31.8 L 36.0-46.0 % Mean Corpuscular Volume 101.2 H 80.0-100.0 fL Mean Corpuscular Hemoglobin 34.1 H 28.0-32.0 pg Mean Corpuscular Hemoglobin Concent 33.7 32.0-36.0 g/dL Red Cell Distribution Width 14.3 11.8-14.3 % Platelet Count 138 L 140-450 10^3/uL Mean Platelet Volume 9.6 6.9-10.8 fL Neutrophils (%) (Auto) 37.0-80.0 % Lymphocytes (%) (Auto) 10.0-50.0 % Monocytes (%) (Auto) 0.0-12.0 % Eosinophils (%) (Auto) 0.0-7.0 % Basophils (%) (Auto) 0.0-2.0 % Neutrophils # (Auto) 1.6-8.6 10 ^3/uL Lymphocytes # (Auto) 0.4-5.4 10 ^3/uL Monocytes # (Auto) 0-1.3 10 ^3/uL Differential Total Cells Counted 100.0 100 Neutrophils % (Manual) 79 37.0-80.0 Band Neutrophils % (Manual) 0 Lymphocytes % (Manual) 7 L 10.0-50.0 Monocytes % (Manual) 8 0-12 Eosinophils % (Manual) 6 0-7 Basophils % (Manual) 0 0.0-2.0 Metamyelocytes % (manual) 0 Myelocytes % (Manual) 0 Promyelocytes % (Manual) 0 Blast Cells % (Manual) 0 Reactive Lymphocytes 0 Platelet Estimate Decreased Macrocytosis Slight Sodium Level 139 136-145 mmol/L Potassium Level 5.6 *H 3.5-5.1 mmol/L Chloride Level 103 98-107 mmol/L Carbon Dioxide Level 24 20-31 mmol/L Anion Gap 12 5-15 Blood Urea Nitrogen 71 #H 9-23 mg/dL Creatinine 8.04 H 0.550-1.02 mg/dL Glomerular Filtration Rate Calc 5 >90 mL/min BUN/Creatinine Ratio 8.8 L 10.0-20.0 Serum Glucose 92 74-106 mg/dL Calcium Level 8.1 L 8.7-10.4 mg/dL Carcinoembryonic Antigen 3.13 <=5.0 ng/mL Test 04/23/24 04:23 04/22/24 17:30 04/22/24 15:54 04/22/24 13:32 Range/Units Eosinophils # (Auto) 0.1 0-0.8 10 ^3/uL Basophils # (Auto) 0 0-0.2 10 ^3/uL Nucleated Red Blood Cells 0.1 % Phosphorus Level 5.8 H 2.4-5.1 mg/dL Urine Color Light-yellow Yellow Urine Clarity Clear Clear Urine pH 6.5 5.0-9.0 Urine Specific [place] 1.012 1.001-1.035 Urine Protein 3+ H Negative Urine Ketones Negative Negative Urine Blood 2+ H Negative /uL Urine Nitrite Negative Negative Urine Bilirubin Negative Negative Urine Urobilinogen Normal Negative mg/dL Urine Leukocyte Esterase 1+ Negative /uL Urine RBC 15 0 - 4 /hpf Urine WBC 9 0 - 5 /hpf Urine Squamous Epithelial Cells Few <5 /hpf Urine Bacteria None seen None Seen /hpf Urine Glucose 2+ H Normal mg/dL Lactic Acid Level 1.1 0.4-2.0 mmol/L Total Bilirubin 1.1 H 0.2-1.0 mg/dL Aspartate Amino Transferase (AST) 36 13-40 U/L Alanine Aminotransferase (ALT) 27 7-40 U/L Alkaline Phosphatase 192 H 46-116 U/L Troponin I High Sensitivity 52 *H </=34 ng/L B-Type Natriuretic Peptide > 5000.00 0-100 pg/mL Total Protein 6.1 5.7-8.2 g/dL Albumin 3.6 3.2-4.8 g/dL Hepatitis A IgM Antibody Negative Hepatitis B Surface Antigen Negative Negative Hepatitis B Core IgM Antibody Negative Negative Hepatitis C Antibody Negative Negative Microbiology Date/Time Source Procedure Growth Status 04/25/24 14:05 Stool Stool Culture - Preliminary Resulted 04/25/24 14:05 Stool Shiga Toxin I & II Pending Resulted 04/22/24 19:47 Blood Blood Culture - Preliminary NO GROWTH AFTER 72 HOURS OF INCUBATION. Resulted Assessment [id number] pericardial effusion likely from uremic pericarditis Acute kidney injury superimposed on chronic kidney disease ESRD on hemodialysis Anemia of chronic disease Uncontrolled type 2 DM Hypertension Plan/Recommendation Plan/Recommendation We will continue with the following plan/recommendations (Dr. Mike): Echocardiogram showed moderate pericardial effusion, Normal left ventricular s ystolic function estimated ejection fraction of 50%. There is a grade 1 diastolic dysfunction. Patient may benefit more hemodialysis sessions BP control DVT/VTE prophylaxis Risk factor modification, counseled Dietary changes Limiting sodium intake Strict INOs Maintaining fluid restriction, daily weight Case discussed with Dr. Jimenez, advised effusion most likely due to uremic pericarditis due to missed hemodialysis sessions, patient would be benefitted hemodialysis, we will do repeat echo to assess pericardial effusion, no urgent intervention needed at this time. Plan discussed with: Patient Visit Coding Cardiology RES Date of Service: Apr 26, 2024 Billing Provider: WALT JIMENEZ MD Cardiology Common Codes: [id number] INP/OBS CARE (Mod) ANNABEL JAIN RESIDENT Apr 26, 2024 11:39
[2024-04-26 12:41] LABS: Anion Gap 9 (5-15); Carbon Dioxide 27 mmol/L (20-31); Chloride 100 mmol/L (98-107); Potassium 4.7 mmol/L (3.5-5.1)
[2024-04-26 12:47] LABS: BUN/Creatinine Ratio 7.3 (10.0-20.0)
[2024-04-26 12:49] LABS: INR 1.18 (0.9-1.15); Prothrombin Time 12.4 sec (9.3-11.8)
[2024-04-26 12:53] LABS: Blood Urea Nitrogen 45 mg/dL (9-23); Calcium 8.7 mg/dL (8.7-10.4); Glucose 184 mg/dL (74-106); Sodium 136 mmol/L (136-145)
[2024-04-26] MEDS: ACETAMINOPHEN 325 MG TAB PO PRN (15:10)
--- NOTE | 2024-04-26 16:43 | DVHPN2 ---
Progress Note Date Seen: Apr 26, 2024 Medical Necessity Reason Pt with a Central, PICC or Fol: No Subjective Patient reports: No new complaints Other Systems: Patient seen and examined by myself today in follow-up Objective vital signs Vital Sign Date Time Temp Pulse Resp B/P (MAP) Pulse Ox O2 Delivery O2 Flow Rate FiO2 04/26/24 13:00 97.9 80 16 112/45 (67) 94 97.9 04/26/24 08:00 Nasal Cannula* 3 32 Total Intake and Output 04/25/24 04/25/24 04/26/24 15:00 23:00 07:00 Intake Total 50 ml 600 ml 475 ml Output Total 100 ml Balance 50 ml 600 ml 375 ml medications Current Medications Medications Dose Ordered Sig/Camacho Route Start Time Stop Time Status Last Admin Dose Admin Diagnostic Test (Pha) 1 strip IQ4HR 04/22/24 20:00 04/26/24 12:00 1 STRIP Insulin Human Regular IQ4HR SC 04/22/24 20:00 04/24/24 12:23 4 UNITS Dextrose 50 ml UD PRN IV 04/22/24 17:00 04/23/24 00:14 50 ML Lorazepam 0.5 mg Q6HP PRN PO 04/22/24 17:00 Al Hydrox/Mg Hydrox/Simethicone 30 ml Q6HP PRN PO 04/22/24 17:00 Docusate Sodium 100 mg BIDPRN PRN PO 04/22/24 17:00 Temazepam 15 mg QHSP PRN PO 04/22/24 17:00 04/25/24 23:55 15 MG Ondansetron HCl 4 mg Q4HP PRN IV 04/22/24 17:00 04/26/24 15:10 4 MG Bumetanide 2.5 mg BIDD IV 04/23/24 07:00 04/26/24 06:31 2.5 MG Amlodipine Besylate 10 mg DAILY PO 04/23/24 07:00 04/26/24 10:01 10 MG Acetaminophen 650 mg Q8HR PRN PO 04/24/24 17:30 04/26/24 15:10 650 MG Ceftriaxone Sodium 50 ml @ 100 mls/hr DAILY@09 IV 04/25/24 09:00 04/26/24 10:01 100 MLS/HR Metronidazole 100 ml @ 100 mls/hr Q8HR IV 04/24/24 22:00 04/26/24 14:32 100 MLS/HR Doxycycline Monohydrate 100 mg Q12HR PO 04/24/24 22:00 04/26/24 10:01 100 MG laboratory and microbiology Laboratory Tests 04/26/24 12:00 04/25/24 07:39 Test 04/26/24 12:00 Range/Units Serum Glucose 184 H 74-106 mg/dL Microbiology Date/Time Source Procedure Growth Status 04/25/24 14:05 Stool Stool Culture - Preliminary Resulted 04/25/24 14:05 Stool Shiga Toxin I & II Pending Resulted 04/22/24 19:47 Blood Blood Culture - Preliminary NO GROWTH AFTER 72 HOURS OF INCUBATION. Resulted Problem List/Assessment/Plan Problem List/Assessment/Plan ESRD on hemodialysis, from [facility] severe Azotemia due to noncompliance Hypertension Congestive heart failure Exacerbation metabolic acidosis Anemia of chronic kidney disease Recommendations Hemodialysis tomorrow Epogen 21323 IV post hemodialysis Fluid restriction Renal diet Resume home medication Awaiting social service for outpatient chair time We will continue to follow up Plan discussed with: Patient Dietary Evaluation Review Comments: 1) Consider a CCHO 45g/Renal Specific diet 2) Continue current plan of care Expected Outcomes/Goals: F/U in 3-5 days HOANG DE ANDA MD Apr 26, 2024 16:43
--- NOTE | 2024-04-26 17:56 | DVHPN2 ---
Subjective Seen and examined at bedside. cont HD. Needs outpatient HD. Awaiting chair time. Abdominal pain improved Changes from previous H/P or p: No Changes Eyes: No Pain, No Vision change, No Conjunctivae inflammation, No Eyelid inflammation, No Other, No Redness ENT: No Ear pain, No Ear discharge, No Nose pain, No Nose discharge, No Nose congestion, No Mouth pain, No Mouth swelling, No Throat pain, No Throat swelling, No Other Cardiovascular: No Chest Pain, No Palpitations, No Orthopnea, No Paroxysmal Noc. Dyspnea, No Edema, No Lt Headedness, No Other Respiratory: No Cough, No Dry, No Shortness of breath, No SOB with excertion, No Wheezing, No Hemoptysis, No Pleuritic Pain, No Sputum, No Other Gastrointestinal: No Nausea, No Vomiting, No Abdominal Pain, No Diarrhea, No Constipation, No Melena, No Hematochezia, No Other Genitourinary: No Dysuria, No Frequency, No Incontinence, No Hematuria, No Retention, No Other Musculoskeletal: No other, No neck pain, No shoulder pain, No arm pain, No back pain, No hand pain, No leg pain, No foot pain Skin: No Rash, No Lesions, No Jaundice, No Bruising, No Other Objective Vitals Vital Signs Date Time Temp Pulse Resp B/P (MAP) Pulse Ox O2 Delivery O2 Flow Rate FiO2 04/26/24 17:07 98.6 74 18 111/58 (75) 94 98.6 04/26/24 08:00 Nasal Cannula* 3 32 Intake/Output Intake and Output 04/26/24 07:00 Intake Total 1125 ml Output Total 100 ml Balance 1025 ml Intake Oral 875 ml IV Total 250 ml Output Urine Total 100 ml # Bowel Movements 2 General Appearance: Alert, Oriented X3 HEENT: Atraumatic Neck: Other (Right IJ Line) Lungs: Other (Diminished) Cardiovascular: Regular rate, Normal S1 Abdomen: Other (Tenderness) Extremities: Other (Left Arm Fistula) Medications Current Medications Medications Dose Ordered Sig/Camacho Route Start Time Stop Time Status Last Admin Dose Admin Diagnostic Test (Pha) 1 strip IQ4HR 04/22/24 20:00 04/26/24 16:00 1 STRIP Insulin Human Regular IQ4HR SC 04/22/24 20:00 04/24/24 12:23 4 UNITS Dextrose 50 ml UD PRN IV 04/22/24 17:00 04/23/24 00:14 50 ML Lorazepam 0.5 mg Q6HP PRN PO 04/22/24 17:00 Al Hydrox/Mg Hydrox/Simethicone 30 ml Q6HP PRN PO 04/22/24 17:00 Docusate Sodium 100 mg BIDPRN PRN PO 04/22/24 17:00 Temazepam 15 mg QHSP PRN PO 04/22/24 17:00 04/25/24 23:55 15 MG Ondansetron HCl 4 mg Q4HP PRN IV 04/22/24 17:00 04/26/24 15:10 4 MG Bumetanide 2.5 mg BIDD IV 04/23/24 07:00 04/26/24 06:31 2.5 MG Amlodipine Besylate 10 mg DAILY PO 04/23/24 07:00 04/26/24 10:01 10 MG Acetaminophen 650 mg Q8HR PRN PO 04/24/24 17:30 04/26/24 15:10 650 MG Ceftriaxone Sodium 50 ml @ 100 mls/hr DAILY@09 IV 04/25/24 09:00 04/26/24 10:01 100 MLS/HR Metronidazole 100 ml @ 100 mls/hr Q8HR IV 04/24/24 22:00 04/26/24 14:32 100 MLS/HR Doxycycline Monohydrate 100 mg Q12HR PO 04/24/24 22:00 04/26/24 10:01 100 MG Laboratory Results Laboratory Tests 04/25/24 07:39 04/26/24 12:00 Chemistry Test 04/26/24 12:00 Calcium Level 8.7 mg/dL (8.7-10.4) Coagulation Test 04/26/24 12:00 Prothrombin Time 12.4 sec (9.3-11.8) H Prothrombin Time INR 1.18 (0.9-1.15) H Activated Partial Thromboplast Time 28.0 SEC (24.5-34.5) Cardiac Markers Test 04/26/24 12:00 B-Type Natriuretic Peptide > 5000.00 pg/mL (0-100) Urinalysis Test 04/22/24 17:30 Urine Color Light-yellow (Yellow) Urine Clarity Clear (Clear) Urine pH 6.5 (5.0-9.0) Urine Specific [place] 1.012 (1.001-1.035) Urine Protein 3+ (Negative) H Urine Ketones Negative (Negative) Urine Blood 2+ /uL (Negative) H Urine Nitrite Negative (Negative) Urine Bilirubin Negative (Negative) Urine Urobilinogen Normal mg/dL (Negative) Urine Leukocyte Esterase 1+ /uL (Negative) Urine RBC 15 /hpf (0 - 4) Urine WBC 9 /hpf (0 - 5) Urine Squamous Epithelial Cells Few /hpf (<5) Urine Bacteria None seen /hpf (None Seen) Urine Glucose 2+ mg/dL (Normal) H Microbiology Microbiology Date/Time Source Procedure Growth Status 04/25/24 14:05 Stool Stool Culture - Preliminary Resulted 04/25/24 14:05 Stool Shiga Toxin I & II Pending Resulted 04/22/24 19:47 Blood Blood Culture - Preliminary NO GROWTH AFTER 72 HOURS OF INCUBATION. Resulted Assessment/Plan Assessment/Plan # Right Basilic DVT - Vascular Consult noted. US in 3 days # Possible Ischemic Colitis vs Malignancy- GI Cx. Repeat ABD/PELVIS with Oral and IV Contrast awaiting # ESRD on HD # Possible Gram Neg vs Aspiration PNA - Abx # Enlarged Para aortic Lymph Node- CT with Contrast Plan discussed with: Patient My Orders Orders - FRAN SAMPSON MD Procedure Category Date Status Time * Cardiology Consult CONS 04/25/24 Transmitted 18:15 Initiate Vte SUMMER 04/26/24 In Process Prophylaxis 10:20 Dietary NOTICE 04/26/24 Transmitted Recommendations 15:40 Date of Service: Apr 26, 2024 Billing Provider: FRAN SAMPSON MD Common Visit Codes: [id number] INP/OBS CARE(MOD) FRAN SAMPSON MD Apr 26, 2024 17:56
[2024-04-27] VITALS (8 sets, daily range): BP systolic 94–125; BP diastolic 34–56; PULSE 59–77; RESP 15–92; TEMP 97.9–98.6; O2SAT 20–95
--- NOTE | 2024-04-27 12:32 | DVHPNRES ---
Progress Note Date Seen: Apr 27, 2024 Resident Creating Document: ANNABEL JAIN RESIDENT Medical Necessity Reason Pt with a Central, PICC or Fol: No Subjective Review of Systems Seen and examined at the bedside, reported improvement in her symptoms since admission. Currently on oxygen at CT for shortness of breath. Likely hemodialysis today. Patient reports: No new complaints Objective vital signs Vital Sign Date Time Temp Pulse Resp B/P (MAP) Pulse Ox O2 Delivery O2 Flow Rate FiO2 04/27/24 09:04 125/59 04/27/24 09:00 98.0 76 15 94 98.0 04/27/24 08:00 Nasal Cannula* 3 32 Total Intake and Output 04/26/24 04/26/24 04/27/24 15:00 23:00 07:00 Intake Total 50 ml 400 ml 500 ml Output Total 250 ml 100 ml Balance 50 ml 150 ml 400 ml medications Current Medications Medications Dose Ordered Sig/Camacho Route Start Time Stop Time Status Last Admin Dose Admin Diagnostic Test (Pha) 1 strip IQ4HR 04/22/24 20:00 04/26/24 23:30 1 STRIP Insulin Human Regular IQ4HR SC 04/22/24 20:00 04/24/24 12:23 4 UNITS Dextrose 50 ml UD PRN IV 04/22/24 17:00 04/23/24 00:14 50 ML Lorazepam 0.5 mg Q6HP PRN PO 04/22/24 17:00 Al Hydrox/Mg Hydrox/Simethicone 30 ml Q6HP PRN PO 04/22/24 17:00 Docusate Sodium 100 mg BIDPRN PRN PO 04/22/24 17:00 Temazepam 15 mg QHSP PRN PO 04/22/24 17:00 04/25/24 23:55 15 MG Ondansetron HCl 4 mg Q4HP PRN IV 04/22/24 17:00 04/26/24 15:10 4 MG Bumetanide 2.5 mg BIDD IV 04/23/24 07:00 04/27/24 06:20 2.5 MG Amlodipine Besylate 10 mg DAILY PO 04/23/24 07:00 04/27/24 09:04 10 MG Acetaminophen 650 mg Q8HR PRN PO 04/24/24 17:30 04/26/24 15:10 650 MG Ceftriaxone Sodium 50 ml @ 100 mls/hr DAILY@09 IV 04/25/24 09:00 04/27/24 08:59 100 MLS/HR Metronidazole 100 ml @ 100 mls/hr Q8HR IV 04/24/24 22:00 04/27/24 06:20 100 MLS/HR Doxycycline Monohydrate 100 mg Q12HR PO 04/24/24 22:00 04/27/24 08:59 100 MG Examination General Appearance: Alert, Oriented X3, Cooperative, mild distress HEENT: Atraumatic, Mucous membranes moist/pink, venous catheter on right side of neck Respiratory: Clear to auscultation, Normal air movement, decreased sounds Cardiovascular: Regular rate, Normal S1, Normal S2, No murmurs Abdominal: Active bowel sounds, Soft, no distention, no tenderness Extremities: No edema, Normal pulses, No tenderness/swelling, fistula on left arm Skin: No Significant rash, except past surgical scars Neuro: Normal speech, sensorimotor deficits none Psych/Mental Status: Mental status NL, Mood NL Nurse was there as sharperone during examination laboratory and microbiology Laboratory Tests 04/26/24 12:00 04/25/24 07:39 Test 04/26/24 12:00 Range/Units Serum Glucose 184 H 74-106 mg/dL Microbiology Date/Time Source Procedure Growth Status 04/25/24 14:05 Stool Stool Culture - Preliminary Resulted 04/25/24 14:05 Stool Shiga Toxin I & II Pending Resulted 04/22/24 19:47 Blood Blood Culture - Preliminary NO GROWTH AFTER 72 HOURS OF INCUBATION. Resulted Labs and/or images reviewed: Labs reviewed by me, Image(s) reviewed by me Problem List/Assessment/Plan Problem List/Assessment/Plan [id number] pericardial effusion likely from uremic pericarditis Acute kidney injury superimposed on chronic kidney disease ESRD on hemodialysis Anemia of chronic disease Uncontrolled type 2 DM Hypertension Plan/Recommendation We will continue with the following plan/recommendations (Dr. Mike): Echocardiogram showed moderate pericardial effusion, Normal left ventricular systolic function estimated ejection fraction of 50%. There is a grade 1 diastolic dysfunction. Patient may benefit more hemodialysis sessions BP control DVT/VTE prophylaxis Risk factor modification, counseled Dietary changes Limiting sodium intake Strict INOs Maintaining fluid restriction, daily weight Case discussed with Dr. Seymour, advised effusion most likely due to uremic pericarditis due to missed hemodialysis sessions, patient would be benefitted hemodialysis, we will do repeat echo to assess pericardial effusion today or Tuesday after hemodialysis, no urgent intervention needed at this time. Plan discussed with: Patient Dietary Evaluation Review Comments: 1) Consider a CCHO 45g/Renal Specific diet 2) Continue current plan of care Expected Outcomes/Goals: F/U in 3-5 days Visit Coding Cardiology RES Date of Service: Apr 27, 2024 Billing Provider: WALT SEYMOUR MD Cardiology Common Codes: [id number] INP/OBS CARE (Mod) ANNABEL JAIN RESIDENT Apr 27, 2024 12:32
--- NOTE | 2024-04-27 14:53 | DVHPN2 ---
Progress Note Date Seen: Apr 27, 2024 Medical Necessity Reason Pt with a Central, PICC or Fol: No Subjective Patient reports: No new complaints Other Systems: Patient seen and examined by myself today in follow-up Patient examined hemodialysis, blood pressure still Objective vital signs Vital Sign Date Time Temp Pulse Resp B/P (MAP) Pulse Ox O2 Delivery O2 Flow Rate FiO2 04/27/24 13:37 98.4 59 16 94/46 (62) 93 98.4 04/27/24 08:00 Nasal Cannula* 3 32 Total Intake and Output 04/26/24 04/26/24 04/27/24 15:00 23:00 07:00 Intake Total 50 ml 400 ml 500 ml Output Total 250 ml 100 ml Balance 50 ml 150 ml 400 ml medications Current Medications Medications Dose Ordered Sig/Camacho Route Start Time Stop Time Status Last Admin Dose Admin Diagnostic Test (Pha) 1 strip IQ4HR 04/22/24 20:00 04/26/24 23:30 1 STRIP Insulin Human Regular IQ4HR SC 04/22/24 20:00 04/24/24 12:23 4 UNITS Dextrose 50 ml UD PRN IV 04/22/24 17:00 04/23/24 00:14 50 ML Lorazepam 0.5 mg Q6HP PRN PO 04/22/24 17:00 Al Hydrox/Mg Hydrox/Simethicone 30 ml Q6HP PRN PO 04/22/24 17:00 Docusate Sodium 100 mg BIDPRN PRN PO 04/22/24 17:00 Temazepam 15 mg QHSP PRN PO 04/22/24 17:00 04/25/24 23:55 15 MG Ondansetron HCl 4 mg Q4HP PRN IV 04/22/24 17:00 04/26/24 15:10 4 MG Bumetanide 2.5 mg BIDD IV 04/23/24 07:00 04/27/24 06:20 2.5 MG Amlodipine Besylate 10 mg DAILY PO 04/23/24 07:00 04/27/24 09:04 10 MG Acetaminophen 650 mg Q8HR PRN PO 04/24/24 17:30 04/26/24 15:10 650 MG Ceftriaxone Sodium 50 ml @ 100 mls/hr DAILY@09 IV 04/25/24 09:00 04/27/24 08:59 100 MLS/HR Metronidazole 100 ml @ 100 mls/hr Q8HR IV 04/24/24 22:00 04/27/24 13:39 100 MLS/HR Doxycycline Monohydrate 100 mg Q12HR PO 04/24/24 22:00 04/27/24 08:59 100 MG Examination: LUNGS:Normal, CVS:Normal, MSK:Normal laboratory and microbiology Laboratory Tests 04/26/24 12:00 04/25/24 07:39 Test 04/26/24 12:00 Range/Units Serum Glucose 184 H 74-106 mg/dL Microbiology Date/Time Source Procedure Growth Status 04/25/24 14:05 Stool Stool Culture - Preliminary Resulted 04/25/24 14:05 Stool Shiga Toxin I & II Pending Resulted 04/22/24 19:47 Blood Blood Culture - Preliminary NO GROWTH AFTER 72 HOURS OF INCUBATION. Resulted Problem List/Assessment/Plan Problem List/Assessment/Plan ESRD on hemodialysis, from [facility] severe Azotemia due to noncompliance Hypertension Congestive heart failure Exacerbation metabolic acidosis Anemia of chronic kidney disease Recommendations Continue with UF 2 L as tolerated Epogen 15749 IV post hemodialysis Fluid restriction Renal diet Resume home medication Awaiting social service for outpatient chair time We will continue to follow up Plan discussed with: Patient My Orders My Orders Orders - HOANG DE ANDA MD Procedure Category Date Status Time Hemodialysis Orders ORDERS 04/27/24 Transmitted 07:00 Dialysis Nursing SUMMER 04/27/24 In Process Message 07:00 Document Fluid Input SUMMER 04/27/24 In Process And Outpu 07:00 Epoetin Fran-Epbx PHA 04/27/24 In Process (Retacrit) 21:00 Dietary Evaluation Review Comments: 1) Consider a CCHO 45g/Renal Specific diet 2) Continue current plan of care Expected Outcomes/Goals: F/U in 3-5 days HOANG DE ANDA MD Apr 27, 2024 14:53
--- NOTE | 2024-04-27 16:53 | DVHPN2 ---
Progress Note - Dictate Date Seen: Apr 27, 2024 Medical Necessity Reason Pt with a Central, PICC or Fol: No Subjective Patient seen at bedside ; awake alert in no acute distress, She is tolerating a regular breakfast One bowel movement recorded There was no nausea vomiting or abdominal pain No new labs today Stool for WBC and occult blood were negative vital signs Vital Sign Date Time Temp Pulse Resp B/P (MAP) Pulse Ox O2 Delivery O2 Flow Rate FiO2 04/27/24 13:37 98.4 59 16 94/46 (62) 93 98.4 04/27/24 08:00 Nasal Cannula* 3 32 Total Intake and Output 04/26/24 04/26/24 04/27/24 15:00 23:00 07:00 Intake Total 50 ml 400 ml 500 ml Output Total 250 ml 100 ml Balance 50 ml 150 ml 400 ml medications Current Medications Medications Dose Ordered Sig/Camacho Route Start Time Stop Time Status Last Admin Dose Admin Diagnostic Test (Pha) 1 strip IQ4HR 04/22/24 20:00 04/26/24 23:30 1 STRIP Insulin Human Regular IQ4HR SC 04/22/24 20:00 04/24/24 12:23 4 UNITS Dextrose 50 ml UD PRN IV 04/22/24 17:00 04/23/24 00:14 50 ML Lorazepam 0.5 mg Q6HP PRN PO 04/22/24 17:00 Al Hydrox/Mg Hydrox/Simethicone 30 ml Q6HP PRN PO 04/22/24 17:00 Docusate Sodium 100 mg BIDPRN PRN PO 04/22/24 17:00 Temazepam 15 mg QHSP PRN PO 04/22/24 17:00 04/25/24 23:55 15 MG Ondansetron HCl 4 mg Q4HP PRN IV 04/22/24 17:00 04/26/24 15:10 4 MG Bumetanide 2.5 mg BIDD IV 04/23/24 07:00 04/27/24 06:20 2.5 MG Amlodipine Besylate 10 mg DAILY PO 04/23/24 07:00 04/27/24 09:04 10 MG Acetaminophen 650 mg Q8HR PRN PO 04/24/24 17:30 04/26/24 15:10 650 MG Ceftriaxone Sodium 50 ml @ 100 mls/hr DAILY@09 IV 04/25/24 09:00 12/20/24 08:59 100 MLS/HR Metronidazole 100 ml @ 100 mls/hr Q8HR IV 04/24/24 22:00 04/27/24 13:39 100 MLS/HR Doxycycline Monohydrate 100 mg Q12HR PO 04/24/24 22:00 04/27/24 08:59 100 MG objective Well-developed lady in no acute distress Alert oriented x3 Pupils equal and react to light Lungs show decreased breath sounds at the bases Cardiovascular S1-S2 regular rate rhythm Abdomen is soft distended with minimal tenderness there was no rebound or guarding Extremities show pedal edema and she has a left arm fistula laboratory and microbiology Laboratory Tests 04/26/24 12:00 04/25/24 07:39 Test 04/26/24 12:00 Range/Units Serum Glucose 184 H 74-106 mg/dL Problems(with codes): (1) Ascites (2) Anasarca (3) Fluid overload (4) Acute kidney injury superimposed on chronic kidney disease (5) Nausea vomiting and diarrhea (6) Abdominal pain (7) Generalized weakness Prognosis Plan Stool for occult blood was negative, stool for WBC negative no WBCs seen which points against colitis Patient is thickening of the intestinal wall is likely due to fluid overload and intestinal wall edema Patient was on IV antibiotics for PNA She needs to continue hemodialysis and have extra fluid removed for fluid overload management Patient stated she had not had a colonoscopy before and at this time did not want a colonoscopy Inpatient was encouraged to follow up in my office as an outpatient to discuss elective panendoscopy once she is medically stabilized I will continue to follow up patient with you Patient is awaiting chair time for her hemodialysis Dietary Evaluation Review Comments: 1) Consider a CCHO 45g/Renal Specific diet 2) Continue current plan of care Expected Outcomes/Goals: F/U in 3-5 days Plan discussed with: Patient MAYNOR LEMOS MD Apr 27, 2024 16:53
--- NOTE | 2024-04-27 18:48 | DVHPN2 ---
Subjective Awaiting chair time Changes from previous H/P or p: No Changes Eyes: No Pain, No Vision change, No Conjunctivae inflammation, No Eyelid inflammation, No Other, No Redness ENT: No Ear pain, No Ear discharge, No Nose pain, No Nose discharge, No Nose congestion, No Mouth pain, No Mouth swelling, No Throat pain, No Throat swelling, No Other Cardiovascular: No Chest Pain, No Palpitations, No Orthopnea, No Paroxysmal Noc. Dyspnea, No Edema, No Lt Headedness, No Other Respiratory: No Cough, No Dry, No Shortness of breath, No SOB with excertion, No Wheezing, No Hemoptysis, No Pleuritic Pain, No Sputum, No Other Gastrointestinal: No Nausea, No Vomiting, No Abdominal Pain, No Diarrhea, No Constipation, No Melena, No Hematochezia, No Other Genitourinary: No Dysuria, No Frequency, No Incontinence, No Hematuria, No Retention, No Other Musculoskeletal: No other, No neck pain, No shoulder pain, No arm pain, No back pain, No hand pain, No leg pain, No foot pain Skin: No Rash, No Lesions, No Jaundice, No Bruising, No Other Objective Vitals Vital Signs Date Time Temp Pulse Resp B/P (MAP) Pulse Ox O2 Delivery O2 Flow Rate FiO2 04/27/24 16:30 98.1 60 17 94/50 (65) 92 98.1 04/27/24 08:00 Nasal Cannula* 3 32 Intake/Output Intake and Output 04/27/24 07:00 Intake Total 950 ml Output Total 350 ml Balance 600 ml Intake Oral 700 ml IV Total 250 ml Output Urine Total 350 ml # Bowel Movements 1 General Appearance: Alert, Oriented X3 HEENT: Atraumatic Neck: Other (Right IJ Line) Lungs: Other (Diminished) Cardiovascular: Regular rate, Normal S1 Abdomen: Other (Tenderness) Extremities: Other (Left Arm Fistula) Medications Current Medications Medications Dose Ordered Sig/Camacho Route Start Time Stop Time Status Last Admin Dose Admin Diagnostic Test (Pha) 1 strip IQ4HR 04/22/24 20:00 04/26/24 23:30 1 STRIP Insulin Human Regular IQ4HR SC 04/22/24 20:00 04/24/24 12:23 4 UNITS Dextrose 50 ml UD PRN IV 04/22/24 17:00 04/23/24 00:14 50 ML Lorazepam 0.5 mg Q6HP PRN PO 04/22/24 17:00 Al Hydrox/Mg Hydrox/Simethicone 30 ml Q6HP PRN PO 04/22/24 17:00 Docusate Sodium 100 mg BIDPRN PRN PO 04/22/24 17:00 Temazepam 15 mg QHSP PRN PO 04/22/24 17:00 04/25/24 23:55 15 MG Ondansetron HCl 4 mg Q4HP PRN IV 04/22/24 17:00 04/26/24 15:10 4 MG Bumetanide 2.5 mg BIDD IV 04/23/24 07:00 04/27/24 06:20 2.5 MG Amlodipine Besylate 10 mg DAILY PO 04/23/24 07:00 04/27/24 09:04 10 MG Acetaminophen 650 mg Q8HR PRN PO 04/24/24 17:30 04/26/24 15:10 650 MG Ceftriaxone Sodium 50 ml @ 100 mls/hr DAILY@09 IV 04/25/24 09:00 04/27/24 08:59 100 MLS/HR Metronidazole 100 ml @ 100 mls/hr Q8HR IV 04/24/24 22:00 04/27/24 13:39 100 MLS/HR Doxycycline Monohydrate 100 mg Q12HR PO 04/24/24 22:00 04/27/24 08:59 100 MG Laboratory Results Laboratory Tests 04/25/24 07:39 04/26/24 12:00 Urinalysis Test 04/22/24 17:30 Urine Color Light-yellow (Yellow) Urine Clarity Clear (Clear) Urine pH 6.5 (5.0-9.0) Urine Specific [place] 1.012 (1.001-1.035) Urine Protein 3+ (Negative) H Urine Ketones Negative (Negative) Urine Blood 2+ /uL (Negative) H Urine Nitrite Negative (Negative) Urine Bilirubin Negative (Negative) Urine Urobilinogen Normal mg/dL (Negative) Urine Leukocyte Esterase 1+ /uL (Negative) Urine RBC 15 /hpf (0 - 4) Urine WBC 9 /hpf (0 - 5) Urine Squamous Epithelial Cells Few /hpf (<5) Urine Bacteria None seen /hpf (None Seen) Urine Glucose 2+ mg/dL (Normal) H Microbiology Microbiology Date/Time Source Procedure Growth Status 04/25/24 14:05 Stool Stool Culture - Preliminary Resulted 04/25/24 14:05 Stool Shiga Toxin I & II - Final Resulted 04/22/24 19:47 Blood Blood Culture - Preliminary NO GROWTH AFTER 72 HOURS OF INCUBATION. Resulted Assessment/Plan Assessment/Plan # Right Basilic DVT - Vascular Consult noted. US in 3 days # Possible Ischemic Colitis vs Malignancy- GI Cx. Repeat ABD/PELVIS with Oral and IV Contrast awaiting # ESRD on HD # Possible Gram Neg vs Aspiration PNA - Abx # Enlarged Para aortic Lymph Node- CT with Contrast Plan discussed with: Other My Orders Orders - FRAN SAMPSON MD Procedure Category Date Status Time * [employer] CONS 04/27/24 Transmitted Consult Date of Service: Apr 27, 2024 Billing Provider: FRAN SAMPSON MD Common Visit Codes: [id number] INP/OBS CARE(LOW) FRAN SAMPSON MD Apr 27, 2024 18:48
[2024-04-28] VITALS (8 sets, daily range): BP systolic 99–146; BP diastolic 36–60; PULSE 74–97; RESP 15–19; TEMP 97.5–98.7; O2SAT 75–98
[2024-04-28] MEDS: GASTROGRAFIN 30 ML SOL ONE (08:17)
[2024-04-28] MEDS: IOHEXOL 300 MG/ML 100ML BOTTLE IJ ONE (08:17)
[2024-04-28] MEDS: SODIUM CHL 0.9% 1000 ML BAG XX ONE ×3 (08:17→08:18)
--- NOTE | 2024-04-28 10:31 | DVHPN2 ---
Progress Note Date Seen: Apr 28, 2024 Medical Necessity Reason Pt with a Central, PICC or Fol: No Subjective Patient reports: No new complaints Other Systems: Patient seen and examined by myself on follow-up today Patient examined hemodialysis, blood pressure stable Objective vital signs Vital Sign Date Time Temp Pulse Resp B/P (MAP) Pulse Ox O2 Delivery O2 Flow Rate FiO2 04/28/24 09:00 98.4 76 18 129/49 (75) 94 98.4 04/27/24 19:30 Nasal Cannula* 3 32 Total Intake and Output 04/27/24 04/27/24 04/28/24 15:00 23:00 07:00 Intake Total 250 ml 580 ml 200 ml Output Total 100 ml Balance 250 ml 480 ml 200 ml medications Current Medications Medications Dose Ordered Sig/Camacho Route Start Time Stop Time Status Last Admin Dose Admin Diagnostic Test (Pha) 1 strip IQ4HR 04/22/24 20:00 04/28/24 08:00 1 STRIP Insulin Human Regular IQ4HR SC 04/22/24 20:00 04/24/24 12:23 4 UNITS Dextrose 50 ml UD PRN IV 04/22/24 17:00 04/23/24 00:14 50 ML Lorazepam 0.5 mg Q6HP PRN PO 04/22/24 17:00 Al Hydrox/Mg Hydrox/Simethicone 30 ml Q6HP PRN PO 04/22/24 17:00 Docusate Sodium 100 mg BIDPRN PRN PO 04/22/24 17:00 Temazepam 15 mg QHSP PRN PO 04/22/24 17:00 04/25/24 23:55 15 MG Ondansetron HCl 4 mg Q4HP PRN IV 04/22/24 17:00 04/26/24 15:10 4 MG Bumetanide 2.5 mg BIDD IV 04/23/24 07:00 04/28/24 06:36 2.5 MG Amlodipine Besylate 10 mg DAILY PO 04/23/24 07:00 04/27/24 09:04 10 MG Acetaminophen 650 mg Q8HR PRN PO 04/24/24 17:30 04/26/24 15:10 650 MG Ceftriaxone Sodium 50 ml @ 100 mls/hr DAILY@09 IV 04/25/24 09:00 04/28/24 10:02 100 MLS/HR Metronidazole 100 ml @ 100 mls/hr Q8HR IV 04/24/24 22:00 04/28/24 06:36 100 MLS/HR Doxycycline Monohydrate 100 mg Q12HR PO 04/24/24 22:00 04/28/24 10:04 100 MG Examination: LUNGS:Normal, CVS:Normal, MSK:Normal laboratory and microbiology Laboratory Tests 04/26/24 12:00 04/25/24 07:39 Test 04/26/24 12:00 Range/Units Serum Glucose 184 H 74-106 mg/dL Microbiology Date/Time Source Procedure Growth Status 04/25/24 14:05 Stool Stool Culture - Final Complete 04/25/24 14:05 Stool Shiga Toxin I & II - Final Complete 04/22/24 19:47 Blood Blood Culture - Final NO GROWTH AFTER 5 DAYS OF INCUBATION. Complete Problem List/Assessment/Plan Problem List/Assessment/Plan ESRD on hemodialysis, from [facility] severe Azotemia due to noncompliance Hypertension Congestive heart failure Exacerbation metabolic acidosis Anemia of chronic kidney disease Recommendations Continue with UF 2 L as tolerated Epogen 54956 IV post hemodialysis Fluid restriction Renal diet Resume home medication Awaiting social service for outpatient chair time We will continue to follow up Plan discussed with: Patient My Orders My Orders Orders - HOANG DE ANDA MD Procedure Category Date Status Time Hemodialysis Orders ORDERS 04/28/24 Transmitted 07:00 Dietary Evaluation Review Comments: 1) Consider a CCHO 45g/Renal Specific diet 2) Continue current plan of care Expected Outcomes/Goals: F/U in 3-5 days HOANG DE ANDA MD Apr 28, 2024 10:31
[2024-04-28] MEDS: EPOETIN ALFA-EPBX 10,000 UNIT/1ML VIAL SC ONE (11:58)
--- NOTE | 2024-04-28 14:12 | DVHPN2 ---
Subjective Awaiting chair time. no change Changes from previous H/P or p: No Changes Eyes: No Pain, No Vision change, No Conjunctivae inflammation, No Eyelid inflammation, No Other, No Redness ENT: No Ear pain, No Ear discharge, No Nose pain, No Nose discharge, No Nose congestion, No Mouth pain, No Mouth swelling, No Throat pain, No Throat swelling, No Other Cardiovascular: No Chest Pain, No Palpitations, No Orthopnea, No Paroxysmal Noc. Dyspnea, No Edema, No Lt Headedness, No Other Respiratory: No Cough, No Dry, No Shortness of breath, No SOB with excertion, No Wheezing, No Hemoptysis, No Pleuritic Pain, No Sputum, No Other Gastrointestinal: No Nausea, No Vomiting, No Abdominal Pain, No Diarrhea, No Constipation, No Melena, No Hematochezia, No Other Genitourinary: No Dysuria, No Frequency, No Incontinence, No Hematuria, No Retention, No Other Musculoskeletal: No other, No neck pain, No shoulder pain, No arm pain, No back pain, No hand pain, No leg pain, No foot pain Skin: No Rash, No Lesions, No Jaundice, No Bruising, No Other Objective Vitals Vital Signs Date Time Temp Pulse Resp B/P (MAP) Pulse Ox O2 Delivery O2 Flow Rate FiO2 04/28/24 13:24 146/51 04/28/24 13:00 97.5 78 18 95 97.5 04/27/24 19:30 Nasal Cannula* 3 32 Intake/Output Intake and Output 04/28/24 07:00 Intake Total 1030 ml Output Total 100 ml Balance 930 ml Intake Oral 780 ml IV Total 250 ml Output Urine Total 100 ml # Voids 50 # Bowel Movements 2 General Appearance: Alert, Oriented X3 HEENT: Atraumatic Neck: Other (Right IJ Line) Lungs: Other (Diminished) Cardiovascular: Regular rate, Normal S1 Abdomen: Other (Tenderness) Extremities: Other (Left Arm Fistula) Medications Current Medications Medications Dose Ordered Sig/Camacho Route Start Time Stop Time Status Last Admin Dose Admin Diagnostic Test (Pha) 1 strip IQ4HR 04/22/24 20:00 04/28/24 12:02 1 STRIP Insulin Human Regular IQ4HR SC 04/22/24 20:00 04/24/24 12:23 4 UNITS Dextrose 50 ml UD PRN IV 04/22/24 17:00 04/23/24 00:14 50 ML Lorazepam 0.5 mg Q6HP PRN PO 04/22/24 17:00 Al Hydrox/Mg Hydrox/Simethicone 30 ml Q6HP PRN PO 04/22/24 17:00 Docusate Sodium 100 mg BIDPRN PRN PO 04/22/24 17:00 Temazepam 15 mg QHSP PRN PO 04/22/24 17:00 04/25/24 23:55 15 MG Ondansetron HCl 4 mg Q4HP PRN IV 04/22/24 17:00 04/26/24 15:10 4 MG Bumetanide 2.5 mg BIDD IV 04/23/24 07:00 04/28/24 06:36 2.5 MG Amlodipine Besylate 10 mg DAILY PO 04/23/24 07:00 04/28/24 13:24 10 MG Acetaminophen 650 mg Q8HR PRN PO 04/24/24 17:30 04/26/24 15:10 650 MG Ceftriaxone Sodium 50 ml @ 100 mls/hr DAILY@09 IV 04/25/24 09:00 04/28/24 10:02 100 MLS/HR Metronidazole 100 ml @ 100 mls/hr Q8HR IV 04/24/24 22:00 04/28/24 13:25 100 MLS/HR Doxycycline Monohydrate 100 mg Q12HR PO 04/24/24 22:00 04/28/24 10:04 100 MG Laboratory Results Laboratory Tests 04/25/24 07:39 04/26/24 12:00 Urinalysis Test 04/22/24 17:30 Urine Color Light-yellow (Yellow) Urine Clarity Clear (Clear) Urine pH 6.5 (5.0-9.0) Urine Specific [place] 1.012 (1.001-1.035) Urine Protein 3+ (Negative) H Urine Ketones Negative (Negative) Urine Blood 2+ /uL (Negative) H Urine Nitrite Negative (Negative) Urine Bilirubin Negative (Negative) Urine Urobilinogen Normal mg/dL (Negative) Urine Leukocyte Esterase 1+ /uL (Negative) Urine RBC 15 /hpf (0 - 4) Urine WBC 9 /hpf (0 - 5) Urine Squamous Epithelial Cells Few /hpf (<5) Urine Bacteria None seen /hpf (None Seen) Urine Glucose 2+ mg/dL (Normal) H Microbiology Microbiology Date/Time Source Procedure Growth Status 04/25/24 14:05 Stool Stool Culture - Final Complete 04/25/24 14:05 Stool Shiga Toxin I & II - Final Complete 04/22/24 19:47 Blood Blood Culture - Final NO GROWTH AFTER 5 DAYS OF INCUBATION. Complete Assessment/Plan Assessment/Plan # Right Basilic DVT - Vascular Consult noted. US in 3 days # Possible Ischemic Colitis vs Malignancy- GI Cx. Repeat ABD/PELVIS with Oral and IV Contrast done. RULED OUT. Possible due to fluid overload. Pain resolved # ESRD on HD # Possible Gram Neg vs Aspiration PNA - Abx # Enlarged Para aortic Lymph Node- CT with Contrast noted Plan discussed with: Other My Orders Orders - FRAN SAMPSON MD Procedure Category Date Status Time * [employer] CONS 04/27/24 Transmitted Consult Date of Service: Apr 28, 2024 Billing Provider: FRAN SAMPSON MD Common Visit Codes: [id number] INP/OBS CARE(LOW) FRAN SAMPSON MD Apr 28, 2024 14:11
--- NOTE | 2024-04-28 20:21 | DVHPN2 ---
Progress Note - Dictate Date Seen: Apr 28, 2024 Medical Necessity Reason Pt with a Central, PICC or Fol: No Subjective Patient seen at bedside ; awake alert in no acute distress, No new complaints sleeping comfortably She is tolerating a regular breakfast Two bowel movement recorded There was no nausea vomiting or abdominal pain No new labs today Stool for WBC and occult blood were negative vital signs Vital Sign Date Time Temp Pulse Resp B/P (MAP) Pulse Ox O2 Delivery O2 Flow Rate FiO2 04/28/24 17:38 119/73 04/28/24 17:00 97.5 97 19 75 97.5 04/28/24 08:15 Nasal Cannula* 3 32 Total Intake and Output 04/27/24 04/27/24 04/28/24 15:00 23:00 07:00 Intake Total 250 ml 580 ml 200 ml Output Total 100 ml Balance 250 ml 480 ml 200 ml medications Current Medications Medications Dose Ordered Sig/Camacho Route Start Time Stop Time Status Last Admin Dose Admin Diagnostic Test (Pha) 1 strip IQ4HR 04/22/24 20:00 04/28/24 16:10 1 STRIP Insulin Human Regular IQ4HR SC 04/22/24 20:00 04/24/24 12:23 4 UNITS Dextrose 50 ml UD PRN IV 04/22/24 17:00 04/23/24 00:14 50 ML Lorazepam 0.5 mg Q6HP PRN PO 04/22/24 17:00 Al Hydrox/Mg Hydrox/Simethicone 30 ml Q6HP PRN PO 04/22/24 17:00 Docusate Sodium 100 mg BIDPRN PRN PO 04/22/24 17:00 Temazepam 15 mg QHSP PRN PO 04/22/24 17:00 04/25/24 23:55 15 MG Ondansetron HCl 4 mg Q4HP PRN IV 04/22/24 17:00 04/26/24 15:10 4 MG Bumetanide 2.5 mg BIDD IV 04/23/24 07:00 04/28/24 17:38 2.5 MG Amlodipine Besylate 10 mg DAILY PO 04/23/24 07:00 04/28/24 13:24 10 MG Acetaminophen 650 mg Q8HR PRN PO 04/24/24 17:30 04/26/24 15:10 650 MG Ceftriaxone Sodium 50 ml @ 100 mls/hr DAILY@09 IV 04/25/24 09:00 04/28/24 10:02 100 MLS/HR Metronidazole 100 ml @ 100 mls/hr Q8HR IV 04/24/24 22:00 04/28/24 13:25 100 MLS/HR Doxycycline Monohydrate 100 mg Q12HR PO 04/24/24 22:00 04/28/24 10:04 100 MG objective Well-developed lady in no acute distress Alert oriented x3 Pupils equal and react to light Lungs show decreased breath sounds at the bases Cardiovascular S1-S2 regular rate rhythm Abdomen is soft distended with minimal tenderness there was no rebound or guarding Extremities show pedal edema and she has a left arm fistula laboratory and microbiology Laboratory Tests 04/26/24 12:00 04/25/24 07:39 Test 04/26/24 12:00 Range/Units Serum Glucose 184 H 74-106 mg/dL Problems(with codes): (1) Ascites (2) Anasarca (3) Fluid overload (4) Acute kidney injury superimposed on chronic kidney disease (5) Nausea vomiting and diarrhea (6) Abdominal pain (7) Generalized weakness (8) Cardiac arrhythmia Prognosis Plan Stool for occult blood was negative, stool for WBC negative no WBCs seen which points against colitis Patient is thickening of the intestinal wall is likely due to fluid overload and intestinal wall edema Patient was on IV antibiotics for PNA She needs to continue hemodialysis and have extra fluid removed for fluid overload management Patient stated she had not had a colonoscopy before and at this time did not want a colonoscopy Inpatient was encouraged to follow up in my office as an outpatient to discuss elective panendoscopy once she is medically stabilized I will continue to follow up patient with you Patient is awaiting chair time for her hemodialysis Dietary Evaluation Review Comments: 1) Consider a CCHO 45g/Renal Specific diet 2) Continue current plan of care Expected Outcomes/Goals: F/U in 3-5 days Plan discussed with: Patient MAYNOR LEMOS MD Apr 28, 2024 20:21
[2024-04-29] VITALS (8 sets, daily range): BP systolic 96–155; BP diastolic 30–58; PULSE 74–98; RESP 14–19; TEMP 97.5–98.3; O2SAT 92–96
[2024-04-29] MEDS: MAALOX PLUS or MAALOX 30 ML PO PRN (08:59)
--- NOTE | 2024-04-29 12:35 | DVHPN2 ---
Progress Note Date Seen: Apr 29, 2024 Medical Necessity Reason Pt with a Central, PICC or Fol: No Subjective Patient reports: No new complaints Other Systems: Patient seen and examined by myself today in follow-up Objective vital signs Vital Sign Date Time Temp Pulse Resp B/P (MAP) Pulse Ox O2 Delivery O2 Flow Rate FiO2 04/29/24 09:59 98.6 04/29/24 09:00 80 16 105/44 (64) 95 04/29/24 08:15 Nasal Cannula* 3 32 Total Intake and Output 04/28/24 04/28/24 04/29/24 15:00 23:00 07:00 Intake Total 250 ml 200 ml 150 ml Output Total 50 ml 50 ml Balance 250 ml 150 ml 100 ml medications Current Medications Medications Dose Ordered Sig/Camacho Route Start Time Stop Time Status Last Admin Dose Admin Diagnostic Test (Pha) 1 strip IQ4HR 04/22/24 20:00 04/29/24 11:57 1 STRIP Insulin Human Regular IQ4HR SC 04/22/24 20:00 04/24/24 12:23 4 UNITS Dextrose 50 ml UD PRN IV 04/22/24 17:00 04/23/24 00:14 50 ML Lorazepam 0.5 mg Q6HP PRN PO 04/22/24 17:00 Al Hydrox/Mg Hydrox/Simethicone 30 ml Q6HP PRN PO 04/22/24 17:00 04/29/24 08:59 30 ML Docusate Sodium 100 mg BIDPRN PRN PO 04/22/24 17:00 Temazepam 15 mg QHSP PRN PO 04/22/24 17:00 04/25/24 23:55 15 MG Ondansetron HCl 4 mg Q4HP PRN IV 04/22/24 17:00 04/29/24 11:42 4 MG Bumetanide 2.5 mg BIDD IV 04/23/24 07:00 04/29/24 06:12 2.5 MG Amlodipine Besylate 10 mg DAILY PO 04/23/24 07:00 04/29/24 08:59 10 MG Acetaminophen 650 mg Q8HR PRN PO 04/24/24 17:30 04/29/24 08:59 650 MG Ceftriaxone Sodium 50 ml @ 100 mls/hr DAILY@09 IV 04/25/24 09:00 04/29/24 08:51 100 MLS/HR Metronidazole 100 ml @ 100 mls/hr Q8HR IV 04/24/24 22:00 04/29/24 06:12 100 MLS/HR Doxycycline Monohydrate 100 mg Q12HR PO 04/24/24 22:00 04/29/24 08:52 100 MG Examination: LUNGS:Normal, CVS:Normal, MSK:Normal laboratory and microbiology Laboratory Tests 04/26/24 12:00 04/25/24 07:39 Test 04/26/24 12:00 Range/Units Serum Glucose 184 H 74-106 mg/dL Microbiology Date/Time Source Procedure Growth Status 04/25/24 14:05 Stool Stool Culture - Final Complete 04/25/24 14:05 Stool Shiga Toxin I & II - Final Complete 04/22/24 19:47 Blood Blood Culture - Final NO GROWTH AFTER 5 DAYS OF INCUBATION. Complete Problem List/Assessment/Plan Problem List/Assessment/Plan ESRD on hemodialysis, from [facility] severe Azotemia due to noncompliance Hypertension Congestive heart failure Exacerbation metabolic acidosis Anemia of chronic kidney disease Recommendations Next hemodialysis 05/01 Epogen 14220 IV post hemodialysis Fluid restriction Renal diet Resume home medication Awaiting social service for outpatient chair time We will continue to follow up Plan discussed with: Patient Dietary Evaluation Review Comments: 1) Consider a CCHO 45g/Renal Specific diet 2) Continue current plan of care Expected Outcomes/Goals: F/U in 3-5 days HOANG DE ANDA MD Apr 29, 2024 12:35
--- NOTE | 2024-04-29 12:48 | DVHPN2 ---
Subjective Some nausea. Some abdominal discomfort. Some headache Reviewed: Care Plan, H&P, Labs, Medications, Previous Orders, Radiology, Other (Consultants) Changes from previous H/P or p: No Changes Objective Vitals Vital Signs Date Time Temp Pulse Resp B/P (MAP) Pulse Ox O2 Delivery O2 Flow Rate FiO2 04/29/24 09:59 98.6 04/29/24 09:00 80 16 105/44 (64) 95 04/29/24 08:15 Nasal Cannula* 3 32 Intake/Output Intake and Output 04/29/24 07:00 Intake Total 600 ml Output Total 100 ml Balance 500 ml Intake Oral 350 ml IV Total 250 ml Output Urine Total 100 ml General Appearance: Alert, Oriented X3, Cooperative HEENT: Atraumatic Neck: Other (Right IJ Line) Lungs: Other (Few crackles bilateral lungs) Cardiovascular: Regular rate Abdomen: Normal bowel sounds, Soft Extremities: Other (Some edema bilateral upper and lower extremity) Medications Current Medications Medications Dose Ordered Sig/Camacho Route Start Time Stop Time Status Last Admin Dose Admin Diagnostic Test (Pha) 1 strip IQ4HR 04/22/24 20:00 04/29/24 11:57 1 STRIP Insulin Human Regular IQ4HR SC 04/22/24 20:00 04/24/24 12:23 4 UNITS Dextrose 50 ml UD PRN IV 04/22/24 17:00 04/23/24 00:14 50 ML Lorazepam 0.5 mg Q6HP PRN PO 04/22/24 17:00 Al Hydrox/Mg Hydrox/Simethicone 30 ml Q6HP PRN PO 04/22/24 17:00 04/29/24 08:59 30 ML Docusate Sodium 100 mg BIDPRN PRN PO 04/22/24 17:00 Temazepam 15 mg QHSP PRN PO 04/22/24 17:00 04/25/24 23:55 15 MG Ondansetron HCl 4 mg Q4HP PRN IV 04/22/24 17:00 04/29/24 11:42 4 MG Bumetanide 2.5 mg BIDD IV 04/23/24 07:00 04/29/24 06:12 2.5 MG Amlodipine Besylate 10 mg DAILY PO 04/23/24 07:00 04/29/24 08:59 10 MG Acetaminophen 650 mg Q8HR PRN PO 04/24/24 17:30 04/29/24 08:59 650 MG Ceftriaxone Sodium 50 ml @ 100 mls/hr DAILY@09 IV 04/25/24 09:00 04/29/24 08:51 100 MLS/HR Metronidazole 100 ml @ 100 mls/hr Q8HR IV 04/24/24 22:00 04/29/24 06:12 100 MLS/HR Doxycycline Monohydrate 100 mg Q12HR PO 04/24/24 22:00 04/29/24 08:52 100 MG Laboratory Results Laboratory Tests 04/25/24 07:39 04/26/24 12:00 Urinalysis Test 04/22/24 17:30 Urine Color Light-yellow (Yellow) Urine Clarity Clear (Clear) Urine pH 6.5 (5.0-9.0) Urine Specific [place] 1.012 (1.001-1.035) Urine Protein 3+ (Negative) H Urine Ketones Negative (Negative) Urine Blood 2+ /uL (Negative) H Urine Nitrite Negative (Negative) Urine Bilirubin Negative (Negative) Urine Urobilinogen Normal mg/dL (Negative) Urine Leukocyte Esterase 1+ /uL (Negative) Urine RBC 15 /hpf (0 - 4) Urine WBC 9 /hpf (0 - 5) Urine Squamous Epithelial Cells Few /hpf (<5) Urine Bacteria None seen /hpf (None Seen) Urine Glucose 2+ mg/dL (Normal) H Microbiology Microbiology Date/Time Source Procedure Growth Status 04/25/24 14:05 Stool Stool Culture - Final Complete 04/25/24 14:05 Stool Shiga Toxin I & II - Final Complete 04/22/24 19:47 Blood Blood Culture - Final NO GROWTH AFTER 5 DAYS OF INCUBATION. Complete Assessment/Plan Assessment/Plan End-stage renal disease/hemodialysis Anasarca Abdominal pain Right basilic superficial vein thrombosis Hypertension Heart failure Anemia of chronic disease Plan: We will check lipase. Add Protonix. Chest x-ray. Continue current plan of care. Possible home tomorrow if dialysis set Plan discussed with: Patient Date of Service: Apr 29, 2024 Billing Provider: COREY WEINSTEIN MD Common Visit Codes: [id number] INP/OBS CARE(HIGH) COREY WEINSTEIN MD Apr 29, 2024 12:48
[2024-04-29] MEDS: PANTOPRAZOLE 40 MG TAB PO ONE (14:38)
--- NOTE | 2024-04-29 15:21 | DVH ---
EXAM: XY CHEST PORTABLE TECHNIQUE: Single frontal chest radiograph CLINICAL HISTORY: hf COMPARISON: XY CHEST XRAY 1 VIEW on DOS: 04/22/24 Findings/Impression: Frontal chest radiograph demonstrates no acute osseous or superficial soft tissue abnormalities. The trachea is midline. Cardiomegaly with pulmonary edema and small to moderate left pleural effusion . Right basilar atelectasis. No pneumothorax.
--- NOTE | 2024-04-29 23:36 | DVHPN2 ---
Progress Note - Dictate Date Seen: Apr 29, 2024 Medical Necessity Reason Pt with a Central, PICC or Fol: No Subjective Patient seen at bedside ; sleeping comfortably She is tolerating a regular breakfast 4 bowel movement recorded There was no nausea vomiting or abdominal pain No new labs today Stool for WBC and occult blood were negative vital signs Vital Sign Date Time Temp Pulse Resp B/P (MAP) Pulse Ox O2 Delivery O2 Flow Rate FiO2 04/29/24 21:00 98.3 81 19 155/55 (88) 95 98.3 04/29/24 08:15 Nasal Cannula* 3 32 Total Intake and Output 04/28/24 04/28/24 04/29/24 15:00 23:00 07:00 Intake Total 250 ml 200 ml 150 ml Output Total 50 ml 50 ml Balance 250 ml 150 ml 100 ml medications Current Medications Medications Dose Ordered Sig/Camacho Route Start Time Stop Time Status Last Admin Dose Admin Diagnostic Test (Pha) 1 strip IQ4HR 04/22/24 20:00 04/29/24 20:08 1 STRIP Insulin Human Regular IQ4HR SC 04/22/24 20:00 04/24/24 12:23 4 UNITS Dextrose 50 ml UD PRN IV 04/22/24 17:00 04/23/24 00:14 50 ML Lorazepam 0.5 mg Q6HP PRN PO 04/22/24 17:00 Al Hydrox/Mg Hydrox/Simethicone 30 ml Q6HP PRN PO 04/22/24 17:00 04/29/24 08:59 30 ML Docusate Sodium 100 mg BIDPRN PRN PO 04/22/24 17:00 Ondansetron HCl 4 mg Q4HP PRN IV 04/22/24 17:00 04/29/24 16:15 4 MG Bumetanide 2.5 mg BIDD IV 04/23/24 07:00 04/29/24 06:12 2.5 MG Amlodipine Besylate 10 mg DAILY PO 04/23/24 07:00 04/29/24 08:59 10 MG Acetaminophen 650 mg Q8HR PRN PO 04/24/24 17:30 04/29/24 08:59 650 MG Ceftriaxone Sodium 50 ml @ 100 mls/hr DAILY@09 IV 04/25/24 09:00 04/29/24 08:51 100 MLS/HR Metronidazole 100 ml @ 100 mls/hr Q8HR IV 04/24/24 22:00 04/29/24 21:51 100 MLS/HR Doxycycline Monohydrate 100 mg Q12HR PO 04/24/24 22:00 04/29/24 21:51 100 MG Pantoprazole Sodium 40 mg DAILY@0600 PO 04/30/24 06:00 objective Well-developed lady in no acute distress Alert oriented x3 Pupils equal and react to light Lungs show decreased breath sounds at the bases Cardiovascular S1-S2 regular rate rhythm Abdomen is soft distended with minimal tenderness there was no rebound or guarding Extremities show pedal edema and she has a left arm fistula laboratory and microbiology Laboratory Tests 04/26/24 12:00 04/25/24 07:39 Test 04/26/24 12:00 Range/Units Serum Glucose 184 H 74-106 mg/dL Problems(with codes): (1) Abdominal pain (2) Nausea vomiting and diarrhea (3) Acute kidney injury superimposed on chronic kidney disease (4) Fluid overload (5) Anasarca (6) Ascites (7) Generalized weakness Prognosis Plan Stool for occult blood was negative, stool for WBC negative no WBCs seen which points against colitis Thickening of the intestinal wall is likely due to fluid overload and intestinal wall edema Patient was on IV antibiotics for PNA She needs to continue hemodialysis and have extra fluid removed for fluid overload management Patient stated she had not had a colonoscopy before and at this time did not want a colonoscopy She was encouraged to follow up in my office as an outpatient to discuss elective panendoscopy once she is medically stabilized I will continue to follow up patient with you Patient is awaiting chair time for her hemodialysis Dietary Evaluation Review Comments: 1) Consider a CCHO 45g/Renal Specific diet 2) Continue current plan of care Expected Outcomes/Goals: F/U in 3-5 days Plan discussed with: Patient MAYNOR LEMOS MD Apr 29, 2024 23:36
[2024-04-30] VITALS (10 sets, daily range): BP systolic 91–172; BP diastolic 32–78; PULSE 79–85; RESP 14–18; TEMP 98–98.8; O2SAT 91–100
[2024-04-30] MEDS: PANTOPRAZOLE 40 MG TAB PO SCH (05:32)
[2024-04-30] MEDS: hydrALAZINE HCL 20 MG/ML VL IV PRN (08:17)
[2024-04-30 11:39] LABS: Chloride 101 mmol/L (98-107); Sodium 138 mmol/L (136-145)
[2024-04-30 11:40] LABS: Anion Gap 10 (5-15); Carbon Dioxide 27 mmol/L (20-31)
[2024-04-30 11:45] LABS: Glucose 102 mg/dL (74-106)
[2024-04-30 11:47] LABS: Blood Urea Nitrogen 31 mg/dL (9-23); Calcium 8.4 mg/dL (8.7-10.4)
--- NOTE | 2024-04-30 12:25 | DVHPN2 ---
Subjective Seen at bedside, c/o diahrrea. Monitor blood pressure. Awaiting chair time. Reviewed: Care Plan, H&P, Labs, Medications, Previous Orders, Radiology, Other (Consultants) Changes from previous H/P or p: No Changes Objective Vitals Vital Signs Date Time Temp Pulse Resp B/P (MAP) Pulse Ox O2 Delivery O2 Flow Rate FiO2 04/30/24 08:34 98.1 82 14 172/70 (104) 96 98.1 04/30/24 08:08 Nasal Cannula* 5 40 Intake/Output Intake and Output 04/30/24 07:00 Intake Total 790 ml Output Total 250 ml Balance 540 ml Intake Oral 540 ml IV Total 250 ml Output Urine Total 250 ml # Bowel Movements 4 General Appearance: Alert, Oriented X3, Cooperative HEENT: Atraumatic Neck: Other (Right IJ Line) Lungs: Other (Few crackles bilateral lungs) Cardiovascular: Regular rate Abdomen: Normal bowel sounds, Soft Extremities: Other (Some edema bilateral upper and lower extremity) Medications Current Medications Medications Dose Ordered Sig/Camacho Route Start Time Stop Time Status Last Admin Dose Admin Diagnostic Test (Pha) 1 strip IQ4HR 04/22/24 20:00 04/30/24 12:21 1 STRIP Insulin Human Regular IQ4HR SC 04/22/24 20:00 04/24/24 12:23 4 UNITS Dextrose 50 ml UD PRN IV 04/22/24 17:00 04/23/24 00:14 50 ML Lorazepam 0.5 mg Q6HP PRN PO 04/22/24 17:00 Al Hydrox/Mg Hydrox/Simethicone 30 ml Q6HP PRN PO 04/22/24 17:00 04/29/24 08:59 30 ML Docusate Sodium 100 mg BIDPRN PRN PO 04/22/24 17:00 Ondansetron HCl 4 mg Q4HP PRN IV 04/22/24 17:00 04/29/24 16:15 4 MG Bumetanide 2.5 mg BIDD IV 04/23/24 07:00 04/30/24 05:32 2.5 MG Amlodipine Besylate 10 mg DAILY PO 04/23/24 07:00 04/30/24 08:29 10 MG Acetaminophen 650 mg Q8HR PRN PO 04/24/24 17:30 04/29/24 08:59 650 MG Ceftriaxone Sodium 50 ml @ 100 mls/hr DAILY@09 IV 04/25/24 09:00 04/30/24 08:29 100 MLS/HR Metronidazole 100 ml @ 100 mls/hr Q8HR IV 04/24/24 22:00 04/30/24 05:32 100 MLS/HR Doxycycline Monohydrate 100 mg Q12HR PO 04/24/24 22:00 04/30/24 08:28 100 MG Pantoprazole Sodium 40 mg DAILY@0600 PO 04/30/24 06:00 04/30/24 05:32 40 MG Hydralazine HCl 10 mg Q6HP PRN IV 04/30/24 08:00 04/30/24 08:17 10 MG Metronidazole 500 mg Q8HR PO 04/30/24 14:00 UNV Saccharomyces Boulardii 250 mg BID PO 04/30/24 22:00 UNV Laboratory Results Laboratory Tests 04/25/24 07:39 04/30/24 11:04 Chemistry Test 04/30/24 11:04 Calcium Level 8.4 mg/dL (8.7-10.4) L Lipid panel Test 04/29/24 16:05 Lipase 61 U/L (12-53) H Urinalysis Test 04/22/24 17:30 Urine Color Light-yellow (Yellow) Urine Clarity Clear (Clear) Urine pH 6.5 (5.0-9.0) Urine Specific [place] 1.012 (1.001-1.035) Urine Protein 3+ (Negative) H Urine Ketones Negative (Negative) Urine Blood 2+ /uL (Negative) H Urine Nitrite Negative (Negative) Urine Bilirubin Negative (Negative) Urine Urobilinogen Normal mg/dL (Negative) Urine Leukocyte Esterase 1+ /uL (Negative) Urine RBC 15 /hpf (0 - 4) Urine WBC 9 /hpf (0 - 5) Urine Squamous Epithelial Cells Few /hpf (<5) Urine Bacteria None seen /hpf (None Seen) Urine Glucose 2+ mg/dL (Normal) H Microbiology Microbiology Date/Time Source Procedure Growth Status 04/25/24 14:05 Stool Stool Culture - Final Complete 04/25/24 14:05 Stool Shiga Toxin I & II - Final Complete 04/22/24 19:47 Blood Blood Culture - Final NO GROWTH AFTER 5 DAYS OF INCUBATION. Complete Assessment/Plan Assessment/Plan # Right Basilic DVT - Vascular Consult noted. US today # Possible Ischemic Colitis vs Malignancy- GI Cx. Repeat ABD/PELVIS with Oral and IV Contrast done. RULED OUT. Possible due to fluid overload. Pain resolved # ESRD on HD # Possible Gram Neg vs Aspiration PNA - Abx # Enlarged Para aortic Lymph Node- CT with Contrast noted Plan discussed with: Patient My Orders Orders - FRAN SAMPSON MD Procedure Category Date Status Time Complete Blood Count LAB 04/30/24 Logged 12:21 Basic Metabolic Panel LAB 04/30/24 Logged 12:21 * Cloth Spreader CONS 04/30/24 Transmitted Consult Metronidazole Tablet PHA 04/30/24 Logged (Flagyl Tablet) 14:00 Florastor (S. PHA 04/30/24 Logged Boulardii) (Florastor) 22:00 Complete Blood Count LAB 05/01/24 Verified 04:00 Basic Metabolic Panel LAB 05/01/24 Verified 04:00 Date of Service: Apr 30, 2024 Billing Provider: FRAN SAMPSON MD Common Visit Codes: [id number] INP/OBS CARE(HIGH) FRAN SAMPSON MD Apr 30, 2024 12:25
[2024-04-30 13:34] LABS: Basophils # (auto) 0.1 10 ^3/uL (0-0.2); Basophils % (auto) 1.3 % (0.0-2.0); Eosinophils # (auto) 0.3 10 ^3/uL (0-0.8); Eosinophils % (auto) 7.2 % (0.0-7.0); Hemoglobin 11.3 g/dL (12.2-16.2); Lymphocytes # (auto) 0.8 10 ^3/uL (0.4-5.4); Lymphocytes % (auto) 19.9 % (10.0-50.0); Mean Corpuscular Hemoglobin 33.2 pg (28.0-32.0); Mean Corpuscular Hgb Conc. 33.1 g/dL (32.0-36.0); Mean Corpuscular Volume 100.5 fL (80.0-100.0); Monocytes # (auto) 0.5 10 ^3/uL (0-1.3); Monocytes % (auto) 13.1 % (0.0-12.0); Neutrophils # (auto) 2.3 10 ^3/uL (1.6-8.6); Neutrophils % (auto) 58.5 % (37.0-80.0); Nucleated Red Blood Cells % 0.2 %; Platelet Count (auto) 145 10^3/uL (140-450); Red Blood Cells 3.39 10^6/uL (4.0-5.20); Red Cell Distribution Width 13.9 % (11.8-14.3)
--- NOTE | 2024-04-30 14:19 | DVHPNRES ---
Progress Note Date Seen: Apr 30, 2024 Resident Creating Document: ANNABEL JAIN RESIDENT Medical Necessity Reason Pt with a Central, PICC or Fol: Yes The following are medically ne: Central Line Subjective Review of Systems Seen and examined at the bedside, reported improvement in her symptoms since admission except abdominal pain. Currently on oxygen at [place] for shortness of breath. Patient would be benefit from more hemodialysis sessions. Objective vital signs Vital Sign Date Time Temp Pulse Resp B/P (MAP) Pulse Ox O2 Delivery O2 Flow Rate FiO2 04/30/24 12:00 98.0 85 16 91/32 (51) 93 98.0 04/30/24 08:08 Nasal Cannula* 5 40 Total Intake and Output 04/29/24 04/29/24 04/30/24 15:00 23:00 07:00 Intake Total 250 ml 220 ml 320 ml Output Total 100 ml 150 ml Balance 250 ml 120 ml 170 ml medications Current Medications Medications Dose Ordered Sig/Camacho Route Start Time Stop Time Status Last Admin Dose Admin Diagnostic Test (Pha) 1 strip IQ4HR 04/22/24 20:00 04/30/24 12:21 1 STRIP Insulin Human Regular IQ4HR SC 04/22/24 20:00 04/24/24 12:23 4 UNITS Dextrose 50 ml UD PRN IV 04/22/24 17:00 04/23/24 00:14 50 ML Lorazepam 0.5 mg Q6HP PRN PO 04/22/24 17:00 Al Hydrox/Mg Hydrox/Simethicone 30 ml Q6HP PRN PO 04/22/24 17:00 04/29/24 08:59 30 ML Docusate Sodium 100 mg BIDPRN PRN PO 04/22/24 17:00 Ondansetron HCl 4 mg Q4HP PRN IV 04/22/24 17:00 04/29/24 16:15 4 MG Bumetanide 2.5 mg BIDD IV 04/23/24 07:00 04/30/24 05:32 2.5 MG Amlodipine Besylate 10 mg DAILY PO 04/23/24 07:00 04/30/24 08:29 10 MG Acetaminophen 650 mg Q8HR PRN PO 04/24/24 17:30 04/29/24 08:59 650 MG Ceftriaxone Sodium 50 ml @ 100 mls/hr DAILY@09 IV 04/25/24 09:00 04/30/24 08:29 100 MLS/HR Metronidazole 100 ml @ 100 mls/hr Q8HR IV 04/24/24 22:00 04/30/24 05:32 100 MLS/HR Doxycycline Monohydrate 100 mg Q12HR PO 04/24/24 22:00 04/30/24 08:28 100 MG Pantoprazole Sodium 40 mg DAILY@0600 PO 04/30/24 06:00 04/30/24 05:32 40 MG Hydralazine HCl 10 mg Q6HP PRN IV 04/30/24 08:00 04/30/24 08:17 10 MG Metronidazole 500 mg Q8HR PO 04/30/24 14:00 Saccharomyces Boulardii 250 mg BID PO 04/30/24 22:00 Examination General Appearance: Alert, Oriented X3, Cooperative, mild distress HEENT: Atraumatic, Mucous membranes moist/pink, venous catheter on right side of neck Respiratory: Clear to auscultation, Normal air movement, decreased sounds Cardiovascular: Regular rate, Normal S1, Normal S2, No murmurs Abdominal: Active bowel sounds, Soft, no distention, no tenderness Extremities: No edema, Normal pulses, No tenderness/swelling, fistula on left arm Skin: No Significant rash, except past surgical scars Neuro: Normal speech, sensorimotor deficits none Psych/Mental Status: Mental status NL, Mood NL Nurse was there as sharperone during examination laboratory and microbiology Laboratory Tests 04/30/24 11:04 Test 04/30/24 11:04 Range/Units Serum Glucose 102 74-106 mg/dL Microbiology Date/Time Source Procedure Growth Status 04/25/24 14:05 Stool Stool Culture - Final Complete 04/25/24 14:05 Stool Shiga Toxin I & II - Final Complete 04/22/24 19:47 Blood Blood Culture - Final NO GROWTH AFTER 5 DAYS OF INCUBATION. Complete Labs and/or images reviewed: Labs reviewed by me, Image(s) reviewed by me Problem List/Assessment/Plan Problem List/Assessment/Plan [id number] pericardial effusion likely from uremic pericarditis Acute on chronic hypoxic respiratory failure likely due to fluid overload Acute kidney injury superimposed on chronic kidney disease ESRD on hemodialysis Anemia of chronic disease Uncontrolled type 2 DM Hypertension Plan/Recommendation We will continue with the following plan/recommendations (Dr. Mike): Echocardiogram showed moderate pericardial effusion, Normal left ventricular systolic function estimated ejection fraction of 50%. There is a grade 1 diastolic dysfunction. Patient may benefit more hemodialysis sessions BP control DVT/VTE prophylaxis Risk factor modification, counseled Dietary changes Limiting sodium intake Strict INOs Maintaining fluid restriction, daily weight Case discussed with Dr. Seymour, Patient would be benefit from more frequent hemodialysis, we will do repeat echo tommorrow after HD to assess pericardial effusion, no urgent intervention needed at this time. Plan discussed with: Patient Dietary Evaluation Review Comments: 1) Consider a CCHO 45g/Renal Specific diet 2) Continue current plan of care Expected Outcomes/Goals: F/U in 3-5 days Visit Coding Cardiology RES Date of Service: Apr 30, 2024 Billing Provider: WALT SEYMOUR MD Cardiology Common Codes: [id number] INP/OBS CARE(Mod) ANNABEL JAIN RESIDENT Apr 30, 2024 14:19
[2024-04-30] MEDS: metroNIDAZOLE 500 MG TAB PO SCH (14:23)
--- NOTE | 2024-04-30 14:32 | DVH ---
Upper Extremity Venous Duplex Clinical History: followup Comparison: US RT UPPER DVT on DOS: 04/23/24 Technique: Duplex Doppler evaluation of the venous system of the RIGHT lower neck and upper extremity including color Doppler and spectral/pulsed waveform analysis was performed. Findings: The internal jugular vein demonstrates appropriate compressibility and waveform variability. The subclavian vein is patent on color Doppler evaluation without intraluminal thrombus and demonstra cordell waveform variability. The visualized portion of the brachiocephalic vein is patent on color Doppler evaluation without intr aluminal thrombus and demonstrates waveform variability. The axillary vein demonstrates appropriate compressibility and waveform variability. The brachial veins demonstrate appropriate compressibility and patency on Doppler evaluation. The basilic vein demonstrates appropriate compressibility and patency on Doppler evaluation. The cephalic vein demonstrates appropriate compressibility and patency on Doppler evaluation. In the right axilla is an anechoic structure with some internal echoes measuring 2.6 x 1.6 x 1.1 cm t his may represent a lymph node. Impression: 1. No venous thrombus identified in the RIGHT upper extremity vessels evaluated above. 2. If clinical concern/symptoms persist or worsen, short-interval follow-up study is suggested. 3. Probable lymph node in the right axilla.
--- NOTE | 2024-04-30 16:00 | DVHPN2 ---
Progress Note Date Seen: Apr 30, 2024 Medical Necessity Reason Pt with a Central, PICC or Fol: No The following are medically ne: Central Line Subjective Patient reports: Feels better Review of Systems: HEENT:Normal Objective vital signs Vital Sign Date Time Temp Pulse Resp B/P (MAP) Pulse Ox O2 Delivery O2 Flow Rate FiO2 04/30/24 12:00 98.0 85 16 91/32 (51) 93 98.0 04/30/24 08:08 Nasal Cannula* 5 40 Total Intake and Output 04/29/24 04/29/24 04/30/24 15:00 23:00 07:00 Intake Total 250 ml 220 ml 320 ml Output Total 100 ml 150 ml Balance 250 ml 120 ml 170 ml medications Current Medications Medications Dose Ordered Sig/Camacho Route Start Time Stop Time Status Last Admin Dose Admin Diagnostic Test (Pha) 1 strip IQ4HR 04/22/24 20:00 04/30/24 12:21 1 STRIP Insulin Human Regular IQ4HR SC 04/22/24 20:00 04/24/24 12:23 4 UNITS Dextrose 50 ml UD PRN IV 04/22/24 17:00 04/23/24 00:14 50 ML Lorazepam 0.5 mg Q6HP PRN PO 04/22/24 17:00 Al Hydrox/Mg Hydrox/Simethicone 30 ml Q6HP PRN PO 04/22/24 17:00 04/29/24 08:59 30 ML Docusate Sodium 100 mg BIDPRN PRN PO 04/22/24 17:00 Ondansetron HCl 4 mg Q4HP PRN IV 04/22/24 17:00 04/29/24 16:15 4 MG Bumetanide 2.5 mg BIDD IV 04/23/24 07:00 04/30/24 05:32 2.5 MG Amlodipine Besylate 10 mg DAILY PO 04/23/24 07:00 04/30/24 08:29 10 MG Acetaminophen 650 mg Q8HR PRN PO 04/24/24 17:30 04/29/24 08:59 650 MG Ceftriaxone Sodium 50 ml @ 100 mls/hr DAILY@09 IV 04/25/24 09:00 04/30/24 08:29 100 MLS/HR Metronidazole 100 ml @ 100 mls/hr Q8HR IV 04/24/24 22:00 04/30/24 14:24 100 MLS/HR Doxycycline Monohydrate 100 mg Q12HR PO 04/24/24 22:00 04/30/24 08:28 100 MG Pantoprazole Sodium 40 mg DAILY@0600 PO 04/30/24 06:00 04/30/24 05:32 40 MG Hydralazine HCl 10 mg Q6HP PRN IV 04/30/24 08:00 04/30/24 08:17 10 MG Metronidazole 500 mg Q8HR PO 04/30/24 14:00 04/30/24 14:23 500 MG Saccharomyces Boulardii 250 mg BID PO 04/30/24 22:00 Examination: GENERAL:Normal, HEENT:Normal, NECK:Normal, CVS:Normal, ABDOMEN:Normal laboratory and microbiology Laboratory Tests 04/30/24 11:04 Test 04/30/24 11:04 Range/Units Serum Glucose 102 74-106 mg/dL Microbiology Date/Time Source Procedure Growth Status 04/25/24 14:05 Stool Stool Culture - Final Complete 04/25/24 14:05 Stool Shiga Toxin I & II - Final Complete 04/22/24 19:47 Blood Blood Culture - Final NO GROWTH AFTER 5 DAYS OF INCUBATION. Complete Problem List/Assessment/Plan Problem List/Assessment/Plan ESRD on hemodialysis, from [facility] severe Azotemia due to noncompliance Hypertension Congestive heart failure Exacerbation metabolic acidosis Anemia of chronic kidney disease Next hemodialysis 05/01 Epogen 07569 IV post hemodialysis Fluid restriction Renal diet Resume home medication pending renal care chairtime Plan discussed with: Patient Dietary Evaluation Review Comments: 1) Consider a CCHO 45g/Renal Specific diet 2) Continue current plan of care Expected Outcomes/Goals: F/U in 3-5 days CRISSY HOWARD MD Apr 30, 2024 16:00
[2024-04-30] MEDS: FLORASTOR (S. BOULARDII) 250 MG CAP PO SCH (21:07)
[2024-05-01] VITALS (78 sets, daily range): BP systolic 56–182; BP diastolic 21–84; PULSE 70–94; RESP 14–26; TEMP 97.6–98.5; O2SAT 89–100
[2024-05-01] MEDS ORDERED: SODIUM CHL 0.9% 1000 ML BAG XX ONE (07:00)
[2024-05-01] MEDS: ALBUMIN 25% 50 ML IV ONE (08:00)
[2024-05-01] MEDS ORDERED: ALBUMIN 25% 50 ML IV ONE (09:00)
[2024-05-01] MEDS: NOREPINEPHRINE 8 MG/250ML KIT 250 ML IV SCH (10:15)
[2024-05-01] MEDS: NOREPINEPHRINE 8 MG/250ML KIT 250 ML IV ONE (10:29)
--- NOTE | 2024-05-01 10:29 | ECG ---
[facility] Test Date: 2024-04-26 Test Time: 10:50:08 Pat Name: JOSE SCHERER Department: Room: 0297T B Gender: F Surveillance Camera Technician: rola : 1955 Requested By: COREY WEINSTEIN Order Number: [id number] Reading MD: Lila Seymour Measurements Intervals [place] Rate: 76 P: 49 VT: 151 QRS: 118 QRSD: 121 T: 29 QT: 427 QTc: 481 Interpretive Statements Sinus rhythm Nonspecific intraventricular conduction delay Electronically Signed On 05-01-2024 13:32:41 PST by Lila Seymour Please click the below link to view image of tracing.
--- NOTE | 2024-05-01 10:29 | ECG ---
[facility] Test Date: 2024-04-26 Test Time: 10:51:22 Pat Name: JOSE SCHERER Department: Room: 0297T B Gender: F Grit Blaster: rola : 1955 Requested By: FRAN SAMPSON Order Number: [id number] Reading MD: Lila Seymour Measurements Intervals [place] Rate: 74 P: 70 [place]: 182 QRS: 120 QRSD: 120 T: -54 QT: 430 QTc: 477 Interpretive Statements Sinus rhythm Nonspecific intraventricular conduction delay Borderline T abnormalities, inferior leads Electronically Signed On 05-01-2024 13:32:42 PST by Lila Seymour Please click the below link to view image of tracing.
--- NOTE | 2024-05-01 10:31 | DVH ---
CHEST RADIOGRAPH Indication: shortness of breath Technique: Single frontal view of the chest was obtained COMPARISON: XY CHEST PORTABLE on DOS: 04/29/24, XY CHEST XRAY 1 VIEW on DOS: 04/22/24 FINDINGS: Lines and Tubes: Right central venous catheter in satisfactory position. Lungs: Congestion Pleura: No effusion. No pneumothorax. Cardiomediastinal contours: Cardiomegaly Bones: Unremarkable IMPRESSION: No significant interval change.
[2024-05-01 10:42] LABS: Basophils # (auto) 0 10 ^3/uL (0-0.2); Basophils % (auto) 1.1 % (0.0-2.0); Eosinophils # (auto) 0.3 10 ^3/uL (0-0.8); Eosinophils % (auto) 7.5 % (0.0-7.0); Hematocrit 34.8 % (36.0-46.0); Hemoglobin 11.5 g/dL (12.2-16.2); Lymphocytes % (auto) 26.5 % (10.0-50.0); Mean Corpuscular Hemoglobin 33.5 pg (28.0-32.0); Mean Corpuscular Hgb Conc. 33.2 g/dL (32.0-36.0); Mean Corpuscular Volume 101.1 fL (80.0-100.0); Monocytes # (auto) 0.6 10 ^3/uL (0-1.3); Monocytes % (auto) 15.5 % (0.0-12.0); Neutrophils # (auto) 1.9 10 ^3/uL (1.6-8.6); Neutrophils % (auto) 49.4 % (37.0-80.0); Nucleated Red Blood Cells % 0.2 %; Platelet Count (auto) 147 10^3/uL (140-450); Red Blood Cells 3.44 10^6/uL (4.0-5.20); Red Cell Distribution Width 13.9 % (11.8-14.3); White Blood Cell 3.9 10^3/uL (4.4-10.8)
--- NOTE | 2024-05-01 10:53 | RESUS ---
CODE ASSIST ASSESSSMENT Initial Information Code Assist Date: May 01, 2024 Code Assist Time: 09:50 Location of Arrest: [place] Room # 297B Provider Name Dr Camacho Time Notified: 09:50 Comment: Dr Camacho at bedside time of code assist paged overhead Situation Staff concerned/worried, speci: SBP <90 or 10 from baseli Situation comment: Per primary RN Kiki, patient noted to be hypotensive since approximately 0830. States Dr Cornejo with nephro was notified and dialysis was canceled. Received orders for albumin IV with no change in blood pressure. Patient began to experience dizziness, nausea and weakness. Code assist paged overhead. Assessment Temperature (Fahrenheit): 97.9 Blood Pressure Systolic: 52 Blood Pressure Diastolic: 14 Respiratory Rate: 14 O2 Sat by Pulse Oximetry: 98 Bedside Blood Glucose: 98 Recommendations/Interventions Medications and Responses : Medication Time: 09:55 Medication Comment: verbal order received from Dr Camacho to administer 250ml NS verbal order received from Cardio KILLIAN Maloney to start patient on 8mcg/min Levophed IV and transfer patient to ICU status/ care Heart Rate: 80 EKG Rhythm: Sinus Rhythm Blood Pressure Systolic: 131 Blood Pressure Diastolic: 37 Respiratory Rate: 14 O2 Sat by Pulse Oximetry: 98 Comment BP pressure improved after levophed was initiated Procedures: Accu check, CXR Portable, CMP, CBC, Cardiac Monitoring, Inititate ACLS Protocol Outcome Outcome: Transfer to ICU Team Members Team Members Dr Doug Swanson regional telecommunications specialist Alyssa ICU regional telecommunications specialistKALIN Burton RT Anna Resource Josephine Diane May 01, 2024 10:53
[2024-05-01 10:58] LABS: Alanine Aminotransferase 12 U/L (7-40); Albumin 3.5 g/dL (3.2-4.8); Anion Gap 11 (5-15); Aspartate Aminotransferase 23 U/L (13-40); BUN/Creatinine Ratio 4.7 (10.0-20.0); Calcium 8.7 mg/dL (8.7-10.4); Carbon Dioxide 23 mmol/L (20-31); Chloride 102 mmol/L (98-107); Glucose 99 mg/dL (74-106); Sodium 136 mmol/L (136-145)
[2024-05-01 10:59] LABS: Bilirubin, Total 0.5 mg/dL (0.2-1.0); Total Protein 6.1 g/dL (5.7-8.2)
[2024-05-01 11:02] LABS: Alkaline Phosphatase 134 U/L (46-116); Blood Urea Nitrogen 32 mg/dL (9-23)
--- NOTE | 2024-05-01 13:05 | DVHPNRES ---
Progress Note Date Seen: May 01, 2024 Resident Creating Document: ANNABEL JAIN RESIDENT Medical Necessity Reason Pt with a Central, PICC or Fol: No The following are medically ne: Central Line Subjective Review of Systems Seen and examined at the bedside. Today patient is severely hypotensive, complaining of more dizziness and weakness, so currently on Levophed. Objective vital signs Vital Sign Date Time Temp Pulse Resp B/P (MAP) Pulse Ox O2 Delivery O2 Flow Rate FiO2 05/01/24 13:00 77 145/47 (79) 90 05/01/24 12:00 97.6 97.6 05/01/24 10:53 14 05/01/24 08:00 Nasal Cannula* 6 44 Total Intake and Output 04/30/24 04/30/24 05/01/24 15:00 23:00 07:00 Intake Total 50 ml 750 ml 200 ml Output Total 75 ml 30 ml Balance 50 ml 675 ml 170 ml medications Current Medications Medications Dose Ordered Sig/Camacho Route Start Time Stop Time Status Last Admin Dose Admin Diagnostic Test (Pha) 1 strip IQ4HR 04/22/24 20:00 05/01/24 11:56 1 STRIP Insulin Human Regular IQ4HR SC 04/22/24 20:00 04/24/24 12:23 4 UNITS Dextrose 50 ml UD PRN IV 04/22/24 17:00 04/23/24 00:14 50 ML Lorazepam 0.5 mg Q6HP PRN PO 04/22/24 17:00 Al Hydrox/Mg Hydrox/Simethicone 30 ml Q6HP PRN PO 04/22/24 17:00 04/29/24 08:59 30 ML Docusate Sodium 100 mg BIDPRN PRN PO 04/22/24 17:00 Ondansetron HCl 4 mg Q4HP PRN IV 04/22/24 17:00 05/01/24 10:30 4 MG Acetaminophen 650 mg Q8HR PRN PO 04/24/24 17:30 05/01/24 09:16 650 MG Ceftriaxone Sodium 50 ml @ 100 mls/hr DAILY@09 IV 04/25/24 09:00 05/01/24 09:16 100 MLS/HR Doxycycline Monohydrate 100 mg Q12HR PO 04/24/24 22:00 05/01/24 09:16 100 MG Pantoprazole Sodium 40 mg DAILY@0600 PO 04/30/24 06:00 05/01/24 05:33 40 MG Hydralazine HCl 10 mg Q6HP PRN IV 04/30/24 08:00 04/30/24 08:17 10 MG Metronidazole 500 mg Q8HR PO 04/30/24 14:00 05/01/24 05:33 500 MG Saccharomyces Boulardii 250 mg BID PO 04/30/24 22:00 05/01/24 09:16 250 MG Norepinephrine Bitartrate 250 ml @ 15 mls/hr [id number] IV 05/01/24 10:15 05/01/24 10:15 15 MLS/HR Examination General Appearance: Alert, Oriented X3, Cooperative, mild distress HEENT: Atraumatic, Mucous membranes moist/pink, venous catheter on right side of neck Respiratory: Clear to auscultation, Normal air movement, decreased sounds Cardiovascular: Regular rate, Normal S1, Normal S2, No murmurs Abdominal: Active bowel sounds, Soft, no distention, no tenderness Extremities: No edema, Normal pulses, No tenderness/swelling, fistula on left arm Skin: No Significant rash, except past surgical scars Neuro: Normal speech, sensorimotor deficits none Psych/Mental Status: Mental status NL, Mood NL Nurse was there as sharperone during examination laboratory and microbiology Laboratory Tests 05/01/24 10:17 Test 05/01/24 10:17 Range/Units Serum Glucose 99 74-106 mg/dL Microbiology Date/Time Source Procedure Growth Status 04/25/24 14:05 Stool Stool Culture - Final Complete 04/25/24 14:05 Stool Shiga Toxin I & II - Final Complete 04/22/24 19:47 Blood Blood Culture - Final NO GROWTH AFTER 5 DAYS OF INCUBATION. Complete Labs and/or images reviewed: Labs reviewed by me, Image(s) reviewed by me Problem List/Assessment/Plan Problem List/Assessment/Plan [id number] pericardial effusion likely from uremic pericarditis Acute on chronic hypoxic respiratory failure likely due to fluid overload Acute kidney injury superimposed on chronic kidney disease ESRD on hemodialysis Anemia of chronic disease Uncontrolled type 2 DM Hypertension Plan/Recommendation We will continue with the following plan/recommendations (Dr. Mike): Echocardiogram showed moderate pericardial effusion, Normal left ventricular systolic function estimated ejection fraction of 50%. There is a grade 1 diastolic dysfunction. Repeat echocardiogram today showed [id number] pericardial effusion. Compared to the last study the effusion around the heart is getting lower in quantity. No evidence of elevated intrapericardial pressure. Patient may benefit more hemodialysis sessions BP control DVT/VTE prophylaxis Risk factor modification, counseled Dietary changes Limiting sodium intake Strict INOs Maintaining fluid restriction, daily weight Case discussed with Dr. Seymour, Patient would be benefit from more frequent hemodialysis,Repeat echocardiogram today showed [id number] pericardial effusion. Compared to the last study the effusion around the heart is getting lower in quantity. No evidence of elevated intrapericardial pressure. We are signing off, thank you for allowing us inpatient care, reconsult if needed. Plan discussed with: Patient Dietary Evaluation Review Comments: 1) Consider a CCHO 45g/Renal Specific diet 2) Continue current plan of care Expected Outcomes/Goals: F/U in 3-5 days Visit Coding Cardiology RES Date of Service: May 01, 2024 Billing Provider: WALT SEYMOUR MD Cardiology Common Codes: [id number] INP/OBS CARE(Mod) ANNABEL JAIN RESIDENT May 01, 2024 13:05
--- NOTE | 2024-05-01 13:18 | DVHSR ---
APPROVED REPORT EXAM: LIMITED Two-dimensional and M-mode echocardiogram. Blood Pressure: 73/57 mmHg INDICATION SOB and effusion RISK FACTORS Height: 61, Weight: 119 Mitral Valve MitralMitral Stenosis E/A ratio0.02D MVAcm2 Other Information Technically limited study due to pericardial effusion check only. Conclusion There is [id number] pericardial effusion. Compared to the last study the effusion around the h eart is getting lower in quantity. No evidence of elevated intrapericardial pressure. There is a large bilateral pleural effusion. Normal left ventricular size and dimension. Normal left ventricular systolic function with mild conc entric left ventricular hypertrophy, estimated ejection fraction at 60%. There is a grade diastolic dysfunction. Normal right ventricular size and dimension. Normal right ventricular systolic function. Normal biatrial size and dimension. Aortic valve is mildly thickened and sclerotic. Normal mitral valve structure and function. Normal tricuspid valve structure and function. The pulmonary valve is grossly normal.
--- NOTE | 2024-05-01 15:35 | DVHPN2 ---
Progress Note - Dictate Date Seen: May 01, 2024 Medical Necessity Reason Pt with a Central, PICC or Fol: No The following are medically ne: Central Line Subjective Patient seen at bedside ; getting dialyzed Patient had a code assist this morning because of hypotension She was required pressors and fluid resuscitation Currently patient is actually stable she has been tapered off the pressors and she is undergoing dialysis No GI bleeding is reported vital signs Vital Sign Date Time Temp Pulse Resp B/P (MAP) Pulse Ox O2 Delivery O2 Flow Rate FiO2 05/01/24 13:55 78 152/58 (89) 93 05/01/24 12:00 97.6 97.6 05/01/24 10:53 14 05/01/24 08:00 Nasal Cannula* 6 44 Total Intake and Output 04/30/24 04/30/24 05/01/24 15:00 23:00 07:00 Intake Total 50 ml 750 ml 200 ml Output Total 75 ml 30 ml Balance 50 ml 675 ml 170 ml medications Current Medications Medications Dose Ordered Sig/Camacho Route Start Time Stop Time Status Last Admin Dose Admin Diagnostic Test (Pha) 1 strip IQ4HR 04/22/24 20:00 05/01/24 11:56 1 STRIP Insulin Human Regular IQ4HR SC 04/22/24 20:00 04/24/24 12:23 4 UNITS Dextrose 50 ml UD PRN IV 04/22/24 17:00 04/23/24 00:14 50 ML Lorazepam 0.5 mg Q6HP PRN PO 04/22/24 17:00 Al Hydrox/Mg Hydrox/Simethicone 30 ml Q6HP PRN PO 04/22/24 17:00 04/29/24 08:59 30 ML Docusate Sodium 100 mg BIDPRN PRN PO 04/22/24 17:00 Ondansetron HCl 4 mg Q4HP PRN IV 04/22/24 17:00 05/01/24 10:30 4 MG Acetaminophen 650 mg Q8HR PRN PO 04/24/24 17:30 05/01/24 09:16 650 MG Ceftriaxone Sodium 50 ml @ 100 mls/hr DAILY@09 IV 04/25/24 09:00 05/01/24 09:16 100 MLS/HR Doxycycline Monohydrate 100 mg Q12HR PO 04/24/24 22:00 05/01/24 09:16 100 MG Pantoprazole Sodium 40 mg DAILY@0600 PO 04/30/24 06:00 05/01/24 05:33 40 MG Hydralazine HCl 10 mg Q6HP PRN IV 04/30/24 08:00 04/30/24 08:17 10 MG Metronidazole 500 mg Q8HR PO 04/30/24 14:00 05/01/24 13:21 500 MG Saccharomyces Boulardii 250 mg BID PO 04/30/24 22:00 05/01/24 09:16 250 MG Norepinephrine Bitartrate 250 ml @ 15 mls/hr [id number] IV 05/01/24 10:15 05/01/24 10:15 15 MLS/HR objective Well-developed lady in no acute distress Alert oriented x3 Pupils equal and react to light Lungs show decreased breath sounds at the bases Cardiovascular S1-S2 regular rate rhythm Abdomen is soft distended with minimal tenderness there was no rebound or guarding Extremities show pedal edema and she has a left arm fistula laboratory and microbiology Laboratory Tests 05/01/24 10:17 Test 05/01/24 10:17 Range/Units Serum Glucose 99 74-106 mg/dL Problems(with codes): (1) Ascites (2) Anasarca (3) Fluid overload (4) Acute kidney injury superimposed on chronic kidney disease (5) Nausea vomiting and diarrhea (6) Abdominal pain (7) Generalized weakness Prognosis Plan Patient has moderate size pericardial effusion Cardiology is following patient More frequent hemodialysis has been advised Overall prognosis still remains guarded although the patient is stable at this time No further GI workup at this time is warranted Dietary Evaluation Review Comments: 1) Consider a CCHO 45g/Renal Specific diet 2) Continue current plan of care Expected Outcomes/Goals: F/U in 3-5 days Plan discussed with: Patient MAYNOR LEMOS MD May 01, 2024 15:35
--- NOTE | 2024-05-01 17:08 | DVHPN2 ---
Subjective Seen at bedside, low BP this AM code assist called. Patient will benefit from CT Chest to evaluate Pleural Effusion Reviewed: Care Plan, H&P, Labs, Medications, Previous Orders, Radiology, Other (Consultants) Changes from previous H/P or p: No Changes Objective Vitals Vital Signs Date Time Temp Pulse Resp B/P (MAP) Pulse Ox O2 Delivery O2 Flow Rate FiO2 05/01/24 16:50 81 158/64 (95) 95 05/01/24 15:00 26 05/01/24 12:00 97.6 97.6 05/01/24 08:00 Nasal Cannula* 6 44 Intake/Output Intake and Output 05/01/24 07:00 Intake Total 1000 ml Output Total 105 ml Balance 895 ml Intake Oral 850 ml IV Total 150 ml Output Urine Total 105 ml # Bowel Movements 4 General Appearance: Alert, Oriented X3, Cooperative HEENT: Atraumatic Neck: Other (Right IJ Line) Lungs: Other (Few crackles bilateral lungs) Cardiovascular: Regular rate Abdomen: Normal bowel sounds, Soft Extremities: Other (Some edema bilateral upper and lower extremity) Medications Current Medications Medications Dose Ordered Sig/Camacho Route Start Time Stop Time Status Last Admin Dose Admin Diagnostic Test (Pha) 1 strip IQ4HR 04/22/24 20:00 05/01/24 16:17 1 STRIP Insulin Human Regular IQ4HR SC 04/22/24 20:00 04/24/24 12:23 4 UNITS Dextrose 50 ml UD PRN IV 04/22/24 17:00 04/23/24 00:14 50 ML Lorazepam 0.5 mg Q6HP PRN PO 04/22/24 17:00 Al Hydrox/Mg Hydrox/Simethicone 30 ml Q6HP PRN PO 04/22/24 17:00 04/29/24 08:59 30 ML Docusate Sodium 100 mg BIDPRN PRN PO 04/22/24 17:00 Ondansetron HCl 4 mg Q4HP PRN IV 04/22/24 17:00 05/01/24 10:30 4 MG Acetaminophen 650 mg Q8HR PRN PO 04/24/24 17:30 05/01/24 09:16 650 MG Ceftriaxone Sodium 50 ml @ 100 mls/hr DAILY@09 IV 04/25/24 09:00 05/01/24 09:16 100 MLS/HR Doxycycline Monohydrate 100 mg Q12HR PO 04/24/24 22:00 05/01/24 09:16 100 MG Pantoprazole Sodium 40 mg DAILY@0600 PO 04/30/24 06:00 05/01/24 05:33 40 MG Hydralazine HCl 10 mg Q6HP PRN IV 04/30/24 08:00 04/30/24 08:17 10 MG Metronidazole 500 mg Q8HR PO 04/30/24 14:00 05/01/24 13:21 500 MG Saccharomyces Boulardii 250 mg BID PO 04/30/24 22:00 05/01/24 09:16 250 MG Norepinephrine Bitartrate 250 ml @ 15 mls/hr [id number] IV 05/01/24 10:15 05/01/24 10:15 15 MLS/HR Laboratory Results Laboratory Tests 05/01/24 10:17 Chemistry Test 05/01/24 10:17 Albumin 3.5 g/dL (3.2-4.8) Calcium Level 8.7 mg/dL (8.7-10.4) Total Protein 6.1 g/dL (5.7-8.2) LFT Test 05/01/24 10:17 Alanine Aminotransferase (ALT) 12 U/L (7-40) Alkaline Phosphatase 134 U/L (46-116) H Aspartate Amino Transferase (AST) 23 U/L (13-40) Total Bilirubin 0.5 mg/dL (0.2-1.0) Urinalysis Test 04/22/24 17:30 Urine Color Light-yellow (Yellow) Urine Clarity Clear (Clear) Urine pH 6.5 (5.0-9.0) Urine Specific [place] 1.012 (1.001-1.035) Urine Protein 3+ (Negative) H Urine Ketones Negative (Negative) Urine Blood 2+ /uL (Negative) H Urine Nitrite Negative (Negative) Urine Bilirubin Negative (Negative) Urine Urobilinogen Normal mg/dL (Negative) Urine Leukocyte Esterase 1+ /uL (Negative) Urine RBC 15 /hpf (0 - 4) Urine WBC 9 /hpf (0 - 5) Urine Squamous Epithelial Cells Few /hpf (<5) Urine Bacteria None seen /hpf (None Seen) Urine Glucose 2+ mg/dL (Normal) H Microbiology Microbiology Date/Time Source Procedure Growth Status 04/25/24 14:05 Stool Stool Culture - Final Complete 04/25/24 14:05 Stool Shiga Toxin I & II - Final Complete 04/22/24 19:47 Blood Blood Culture - Final NO GROWTH AFTER 5 DAYS OF INCUBATION. Complete Assessment/Plan Assessment/Plan # Pulm Edema # Possible Cardiogenic Shock?? - Levophed # Right Basilic DVT - Vascular Consult noted. US today # Possible Ischemic Colitis vs Malignancy- GI Cx. Repeat ABD/PELVIS with Oral and IV Contrast done. RULED OUT. Possible due to fluid overload. Pain resolved # ESRD on HD # Possible Gram Neg vs Aspiration PNA - Abx # Enlarged Para aortic Lymph Node- CT with Contrast noted Plan discussed with: Patient My Orders Orders - FRAN SAMPSON MD Procedure Category Date Status Time * Wound Consult CONS 05/01/24 Transmitted Electrocardigram EKG 05/01/24 Resulted 10:19 Apply Z-Guard SUMMER 05/01/24 In Process 13:[address] 05/01/24 Verified 17:03 Basic Metabolic Panel LAB 05/02/24 Verified 04:00 Complete Blood Count LAB 05/02/24 Verified 04:00 Magnesium LAB 05/02/24 Verified 04:00 Date of Service: May 01, 2024 Billing Provider: FRAN SAMPSON MD Common Visit Codes: [id number] INP/OBS CARE(HIGH) FRAN SAMPSON MD May 01, 2024 17:08
--- NOTE | 2024-05-01 20:08 | DVH ---
Bilateral Chest Sonogram Date: 05/01/2024 07:30 PM Clinical history: Pleural Effusion Images submitted: 3 TECHNIQUE: 3 longitudinal and transverse images through the right and left chest were obtained with grayscale ultrasound. Findings: Limited sonographic evaluation of the RIGHT AND LEFT chest was performed to localize and elisabeth fluid f or thoracentesis. There is a MODERATE pleural effusion. IMPRESSION: 1. BILATERAL PLEURAL EFFUSIONS.
[2024-05-02] VITALS (7 sets, daily range): BP systolic 96–161; BP diastolic 25–70; PULSE 81–86; RESP 17–18; TEMP 97.5–98.4; O2SAT 91–99
[2024-05-02 10:30] LABS: Basophils # (auto) 0 10 ^3/uL (0-0.2); Basophils % (auto) 1.3 % (0.0-2.0); Eosinophils # (auto) 0.2 10 ^3/uL (0-0.8); Eosinophils % (auto) 7.2 % (0.0-7.0); Hematocrit 32.1 % (36.0-46.0); Hemoglobin 10.5 g/dL (12.2-16.2); Lymphocytes # (auto) 0.7 10 ^3/uL (0.4-5.4); Lymphocytes % (auto) 22.3 % (10.0-50.0); Mean Corpuscular Hgb Conc. 32.8 g/dL (32.0-36.0); Mean Corpuscular Volume 100.5 fL (80.0-100.0); Monocytes # (auto) 0.5 10 ^3/uL (0-1.3); Monocytes % (auto) 15.2 % (0.0-12.0); Neutrophils # (auto) 1.7 10 ^3/uL (1.6-8.6); Nucleated Red Blood Cells % 0.1 %; Platelet Count (auto) 119 10^3/uL (140-450); Red Cell Distribution Width 13.9 % (11.8-14.3); White Blood Cell 3.2 10^3/uL (4.4-10.8)
[2024-05-02 10:40] LABS: Chloride 103 mmol/L (98-107); Sodium 140 mmol/L (136-145)
[2024-05-02 10:41] LABS: Anion Gap 10 (5-15); Carbon Dioxide 27 mmol/L (20-31)
[2024-05-02 10:46] LABS: BUN/Creatinine Ratio 3.7 (10.0-20.0); Blood Urea Nitrogen 19 mg/dL (9-23)
[2024-05-02 10:47] LABS: Magnesium 1.8 mg/dL (1.6-2.6)
--- NOTE | 2024-05-02 11:13 | DVHPN2 ---
Subjective Seen at bedside, needs thoracentesis. Likely tomorrow. Reviewed: Care Plan, H&P, Labs, Medications, Previous Orders, Radiology, Other (Consultants) Changes from previous H/P or p: No Changes Objective Vitals Vital Signs Date Time Temp Pulse Resp B/P (MAP) Pulse Ox O2 Delivery O2 Flow Rate FiO2 05/02/24 08:00 98.4 84 18 137/57 (83) 98 98.4 05/01/24 20:00 Nasal Cannula* 6 44 Intake/Output Intake and Output 05/02/24 07:00 Intake Total 530.00 ml Output Total 100 ml Balance 430.00 ml Intake Oral 450 ml IV Total 80.00 ml Output Urine Total 100 ml # Voids 2 # Bowel Movements 4 General Appearance: Alert, Oriented X3, Cooperative HEENT: Atraumatic Neck: Other (Right IJ Line) Lungs: Other (Few crackles bilateral lungs) Cardiovascular: Regular rate Abdomen: Normal bowel sounds, Soft Extremities: Other (Some edema bilateral upper and lower extremity) Medications Current Medications Medications Dose Ordered Sig/Camacho Route Start Time Stop Time Status Last Admin Dose Admin Diagnostic Test (Pha) 1 strip IQ4HR 04/22/24 20:00 05/02/24 08:14 1 STRIP Insulin Human Regular IQ4HR SC 04/22/24 20:00 04/24/24 12:23 4 UNITS Dextrose 50 ml UD PRN IV 04/22/24 17:00 04/23/24 00:14 50 ML Lorazepam 0.5 mg Q6HP PRN PO 04/22/24 17:00 Al Hydrox/Mg Hydrox/Simethicone 30 ml Q6HP PRN PO 04/22/24 17:00 04/29/24 08:59 30 ML Docusate Sodium 100 mg BIDPRN PRN PO 04/22/24 17:00 Ondansetron HCl 4 mg Q4HP PRN IV 04/22/24 17:00 05/01/24 10:30 4 MG Acetaminophen 650 mg Q8HR PRN PO 04/24/24 17:30 05/01/24 09:16 650 MG Ceftriaxone Sodium 50 ml @ 100 mls/hr DAILY@09 IV 04/25/24 09:00 05/02/24 08:14 100 MLS/HR Doxycycline Monohydrate 100 mg Q12HR PO 04/24/24 22:00 05/02/24 08:57 100 MG Pantoprazole Sodium 40 mg DAILY@0600 PO 04/30/24 06:00 05/02/24 05:16 40 MG Hydralazine HCl 10 mg Q6HP PRN IV 04/30/24 08:00 04/30/24 08:17 10 MG Metronidazole 500 mg Q8HR PO 04/30/24 14:00 05/02/24 05:16 500 MG Saccharomyces Boulardii 250 mg BID PO 04/30/24 22:00 05/02/24 08:57 250 MG Norepinephrine Bitartrate 250 ml @ 15 mls/hr [id number] IV 05/01/24 10:15 05/01/24 10:15 15 MLS/HR Laboratory Results Laboratory Tests 05/02/24 10:00 Chemistry Test 05/02/24 10:00 Calcium Level Pending Magnesium Level Pending Urinalysis Test 04/22/24 17:30 Urine Color Light-yellow (Yellow) Urine Clarity Clear (Clear) Urine pH 6.5 (5.0-9.0) Urine Specific [place] 1.012 (1.001-1.035) Urine Protein 3+ (Negative) H Urine Ketones Negative (Negative) Urine Blood 2+ /uL (Negative) H Urine Nitrite Negative (Negative) Urine Bilirubin Negative (Negative) Urine Urobilinogen Normal mg/dL (Negative) Urine Leukocyte Esterase 1+ /uL (Negative) Urine RBC 15 /hpf (0 - 4) Urine WBC 9 /hpf (0 - 5) Urine Squamous Epithelial Cells Few /hpf (<5) Urine Bacteria None seen /hpf (None Seen) Urine Glucose 2+ mg/dL (Normal) H Microbiology Microbiology Date/Time Source Procedure Growth Status 04/25/24 14:05 Stool Stool Culture - Final Complete 04/25/24 14:05 Stool Shiga Toxin I & II - Final Complete 04/22/24 19:47 Blood Blood Culture - Final NO GROWTH AFTER 5 DAYS OF INCUBATION. Complete Assessment/Plan Assessment/Plan # Pulm Edema # Possible Cardiogenic Shock?? - Levophed # Right Basilic DVT - Vascular Consult noted. US today # Possible Ischemic Colitis vs Malignancy- GI Cx. Repeat ABD/PELVIS with Oral and IV Contrast done. RULED OUT. Possible due to fluid overload. Pain resolved # ESRD on HD # Possible Gram Neg vs Aspiration PNA - Abx # Enlarged Para aortic Lymph Node- CT with Contrast noted Plan discussed with: Patient My Orders Orders - FRAN SAMPSON MD Procedure Category Date Status Time Apply Z-Guard SUMMER 05/01/24 In Process 13:24 Basic Metabolic Panel LAB 05/02/24 In Process 04:00 Magnesium LAB 05/02/24 In Process 04:00 Chest Ultrasound US 05/01/24 Resulted 17:07 * Radiologist Consult CONS 05/01/24 Transmitted 20:27 Date of Service: May 02, 2024 Billing Provider: FRAN SAMPSON MD Common Visit Codes: [id number] INP/OBS CARE(HIGH) FRAN SAMPSON MD May 02, 2024 11:13
[2024-05-02 11:18] LABS: Calcium 8.2 mg/dL (8.7-10.4); Glucose 108 mg/dL (74-106); Potassium 3.2 mmol/L (3.5-5.1)
--- NOTE | 2024-05-02 11:44 | DVHPN2 ---
Progress Note Date Seen: May 02, 2024 Medical Necessity Reason Pt with a Central, PICC or Fol: No The following are medically ne: Central Line Subjective Other Systems: Patient seen and examined by myself today in follow-up Objective vital signs Vital Sign Date Time Temp Pulse Resp B/P (MAP) Pulse Ox O2 Delivery O2 Flow Rate FiO2 05/02/24 08:00 98.4 84 18 137/57 (83) 98 98.4 05/01/24 20:00 Nasal Cannula* 6 44 Total Intake and Output 05/01/24 05/01/24 05/02/24 15:00 23:00 07:00 Intake Total 76.25 ml 53.75 ml 400 ml Output Total 100 ml Balance 76.25 ml -46.25 ml 400 ml medications Current Medications Medications Dose Ordered Sig/Camacho Route Start Time Stop Time Status Last Admin Dose Admin Diagnostic Test (Pha) 1 strip IQ4HR 04/22/24 20:00 05/02/24 08:14 1 STRIP Insulin Human Regular IQ4HR SC 04/22/24 20:00 04/24/24 12:23 4 UNITS Dextrose 50 ml UD PRN IV 04/22/24 17:00 04/23/24 00:14 50 ML Lorazepam 0.5 mg Q6HP PRN PO 04/22/24 17:00 Al Hydrox/Mg Hydrox/Simethicone 30 ml Q6HP PRN PO 04/22/24 17:00 04/29/24 08:59 30 ML Docusate Sodium 100 mg BIDPRN PRN PO 04/22/24 17:00 Ondansetron HCl 4 mg Q4HP PRN IV 04/22/24 17:00 05/01/24 10:30 4 MG Acetaminophen 650 mg Q8HR PRN PO 04/24/24 17:30 05/01/24 09:16 650 MG Ceftriaxone Sodium 50 ml @ 100 mls/hr DAILY@09 IV 04/25/24 09:00 05/02/24 08:14 100 MLS/HR Doxycycline Monohydrate 100 mg Q12HR PO 04/24/24 22:00 05/02/24 08:57 100 MG Pantoprazole Sodium 40 mg DAILY@0600 PO 04/30/24 06:00 05/02/24 05:16 40 MG Hydralazine HCl 10 mg Q6HP PRN IV 04/30/24 08:00 04/30/24 08:17 10 MG Metronidazole 500 mg Q8HR PO 04/30/24 14:00 05/02/24 05:16 500 MG Saccharomyces Boulardii 250 mg BID PO 04/30/24 22:00 05/02/24 08:57 250 MG Norepinephrine Bitartrate 250 ml @ 15 mls/hr [id number] IV 05/01/24 10:15 05/01/24 10:15 15 MLS/HR Examination: LUNGS:Normal, CVS:Normal, MSK:Normal laboratory and microbiology Laboratory Tests 05/02/24 10:00 Test 05/02/24 10:00 Range/Units Serum Glucose 108 H 74-106 mg/dL Microbiology Date/Time Source Procedure Growth Status 04/25/24 14:05 Stool Stool Culture - Final Complete 04/25/24 14:05 Stool Shiga Toxin I & II - Final Complete 04/22/24 19:47 Blood Blood Culture - Final NO GROWTH AFTER 5 DAYS OF INCUBATION. Complete Problem List/Assessment/Plan Problem List/Assessment/Plan ESRD on hemodialysis, from [facility] severe Azotemia due to noncompliance Hypertension Congestive heart failure Exacerbation metabolic acidosis Anemia of chronic kidney disease Recommendations Hemodialysis tomorrow Epogen [id number] IV post hemodialysis Fluid restriction Renal diet Resume home medication Awaiting social service for outpatient chair time We will continue to follow up Plan discussed with: Patient Dietary Evaluation Review Comments: 1) Consider a CCHO 45g/Renal Specific diet 2) Continue current plan of care Expected Outcomes/Goals: F/U in 3-5 days HOANG DE ANDA MD May 02, 2024 11:44
[2024-05-02] MEDS: POTASSIUM EFFERVESENT TAB 25 MEQ PO ONE (13:58)
[2024-05-03] VITALS (8 sets, daily range): BP systolic 96–135; BP diastolic 41–56; PULSE 81–90; RESP 12–18; TEMP 97.4–98.8; O2SAT 92–98
[2024-05-03] MEDS ORDERED: SODIUM CHL 0.9% 1000 ML BAG XX ONE (07:00)
--- NOTE | 2024-05-03 10:23 | DVH ---
XY CHEST PORTABLE, HISTORY: POST THORACENTESIS COMPARISON: XY CHEST PORTABLE on DOS: 05/01/24, XY CHEST PORTABLE on DOS: 04/29/24, XY CHEST XRAY 1 V IEW on DOS: 04/22/24 XY CHEST PORTABLE on DOS: 05/01/24, XY CHEST PORTABLE on DOS: 04/29/24, XY CHEST XRAY 1 VIEW on DOS: 04/22/24 TECHNICAL DATA: 1 view of the chest was obtained. FINDINGS: Lines and tubes: None Cardiomediastinal silhouette: Enlarged. Pulmonary vasculature: normal Lung expansion: normal Lung airspace: normal Lung interstitium: normal Pleura: Small left pleural effusion. Pneumothorax: no Bones: Unremarkable Other: no IMPRESSION: No pneumothorax is seen. Small left pleural effusion. Small pericardial effusion.
--- NOTE | 2024-05-03 10:55 | DVH ---
US THORACENTESIS, HISTORY: BILAT PLUERAL EFFUSIONS PROCEDURE: Informed consent was obtained. The patient was seated on the bed. A limited localization u ltrasound of the left thorax was obtained, and the optimal approach was marked on the skin. The area was prepped with chlorhexidine which was allowed to dry and draped in the usual sterile fashion. Time out was performed. The skin and the soft tissues were infiltrated with 1% lidocaine. A 5.5 [place] ce ntesis needle catheter was advanced into left pleural space. Following aspiration of fluid, the sara ter was advanced and the needle removed. About 550 cc of fluid was drained. No immediate complicatio n was identified. FINDINGS: Moderate left pleural effusion. Aspirated fluid is clear and serous. IMPRESSION: Left thoracentesis with 550 mL removed.
--- NOTE | 2024-05-03 11:47 | DVHPN2 ---
Progress Note - Dictate Date Seen: May 03, 2024 Medical Necessity Reason Pt with a Central, PICC or Fol: No The following are medically ne: Central Line Subjective Patient seen at bedside Just returned from getting thoracentesis and 550 mL of fluid was aspirated No GI bleeding is reported vital signs Vital Sign Date Time Temp Pulse Resp B/P (MAP) Pulse Ox O2 Delivery O2 Flow Rate FiO2 05/03/24 09:00 98.3 86 12 135/55 (81) 95 98.3 05/02/24 20:00 Nasal Cannula* 4 36 Total Intake and Output 05/02/24 05/02/24 05/03/24 15:00 23:00 07:00 Intake Total 50 ml 200 ml Output Total 50 ml Balance 50 ml 150 ml medications Current Medications Medications Dose Ordered Sig/Camacho Route Start Time Stop Time Status Last Admin Dose Admin Diagnostic Test (Pha) 1 strip IQ4HR 04/22/24 20:00 05/03/24 08:27 1 STRIP Insulin Human Regular IQ4HR SC 04/22/24 20:00 04/24/24 12:23 4 UNITS Dextrose 50 ml UD PRN IV 04/22/24 17:00 04/23/24 00:14 50 ML Lorazepam 0.5 mg Q6HP PRN PO 04/22/24 17:00 Al Hydrox/Mg Hydrox/Simethicone 30 ml Q6HP PRN PO 04/22/24 17:00 04/29/24 08:59 30 ML Docusate Sodium 100 mg BIDPRN PRN PO 04/22/24 17:00 Ondansetron HCl 4 mg Q4HP PRN IV 04/22/24 17:00 05/01/24 10:30 4 MG Acetaminophen 650 mg Q8HR PRN PO 04/24/24 17:30 05/03/24 10:47 650 MG Ceftriaxone Sodium 50 ml @ 100 mls/hr DAILY@09 IV 04/25/24 09:00 05/03/24 08:28 100 MLS/HR Doxycycline Monohydrate 100 mg Q12HR PO 04/24/24 22:00 05/03/24 08:28 100 MG Pantoprazole Sodium 40 mg DAILY@0600 PO 04/30/24 06:00 05/03/24 05:40 40 MG Hydralazine HCl 10 mg Q6HP PRN IV 04/30/24 08:00 04/30/24 08:17 10 MG Metronidazole 500 mg Q8HR PO 04/30/24 14:00 05/03/24 05:40 500 MG Saccharomyces Boulardii 250 mg BID PO 04/30/24 22:00 05/03/24 08:29 250 MG Norepinephrine Bitartrate 250 ml @ 15 mls/hr [id number] IV 05/01/24 10:15 05/01/24 10:15 15 MLS/HR objective Well-developed lady in no acute distress Alert oriented x3 Pupils equal and react to light Lungs show decreased breath sounds at the bases Cardiovascular S1-S2 regular rate rhythm Abdomen is soft distended with minimal tenderness there was no rebound or guarding Extremities show pedal edema and she has a left arm fistula laboratory and microbiology Laboratory Tests 05/02/24 10:00 Test 05/02/24 10:00 Range/Units Serum Glucose 108 H 74-106 mg/dL Problems(with codes): (1) Ascites (2) Anasarca (3) Fluid overload (4) Acute kidney injury superimposed on chronic kidney disease (5) Nausea vomiting and diarrhea (6) Abdominal pain (7) Generalized weakness (8) Cardiac arrhythmia (9) Hyperkalemia (10) Pneumonia (11) Pleural effusion (12) Colitis Prognosis Plan Continue to monitor labs Advance diet as tolerated Supportive care Patient is awaiting a chair time Her prognosis remains guarded Dietary Evaluation Review Comments: 1) Consider a CCHO 45g/Renal Specific diet 2) Continue current plan of care Expected Outcomes/Goals: F/U in 3-5 days Plan discussed with: Patient MAYNOR LEMOS MD May 03, 2024 11:47
[2024-05-03 13:11] LABS: Body Fluid Polymorphonuclear 3 % (0-25); Body Fluid Red Blood Cells 235 CUMM (0-2000); Body Fluid White Blood Cells 117 CUMM (0-200)
--- NOTE | 2024-05-03 13:47 | DVHPN2 ---
Progress Note Date Seen: May 03, 2024 Medical Necessity Reason Pt with a Central, PICC or Fol: No The following are medically ne: Central Line Subjective Patient reports: No new complaints Other Systems: Patient seen and examined by myself today during hemodialysis, blood pressure stable Objective vital signs Vital Sign Date Time Temp Pulse Resp B/P (MAP) Pulse Ox O2 Delivery O2 Flow Rate FiO2 05/03/24 13:00 98.2 81 18 110/46 (67) 94 98.2 05/03/24 08:00 Nasal Cannula* 4 36 Total Intake and Output 05/02/24 05/02/24 05/03/24 15:00 23:00 07:00 Intake Total 50 ml 200 ml Output Total 50 ml Balance 50 ml 150 ml medications Current Medications Medications Dose Ordered Sig/Camacho Route Start Time Stop Time Status Last Admin Dose Admin Diagnostic Test (Pha) 1 strip IQ4HR 04/22/24 20:00 05/03/24 08:27 1 STRIP Insulin Human Regular IQ4HR SC 04/22/24 20:00 04/24/24 12:23 4 UNITS Dextrose 50 ml UD PRN IV 04/22/24 17:00 04/23/24 00:14 50 ML Lorazepam 0.5 mg Q6HP PRN PO 04/22/24 17:00 Al Hydrox/Mg Hydrox/Simethicone 30 ml Q6HP PRN PO 04/22/24 17:00 04/29/24 08:59 30 ML Docusate Sodium 100 mg BIDPRN PRN PO 04/22/24 17:00 Ondansetron HCl 4 mg Q4HP PRN IV 04/22/24 17:00 05/01/24 10:30 4 MG Acetaminophen 650 mg Q8HR PRN PO 04/24/24 17:30 05/03/24 10:47 650 MG Ceftriaxone Sodium 50 ml @ 100 mls/hr DAILY@09 IV 04/25/24 09:00 05/03/24 08:28 100 MLS/HR Doxycycline Monohydrate 100 mg Q12HR PO 04/24/24 22:00 05/03/24 08:28 100 MG Pantoprazole Sodium 40 mg DAILY@0600 PO 04/30/24 06:00 05/03/24 05:40 40 MG Hydralazine HCl 10 mg Q6HP PRN IV 04/30/24 08:00 04/30/24 08:17 10 MG Metronidazole 500 mg Q8HR PO 04/30/24 14:00 05/03/24 05:40 500 MG Saccharomyces Boulardii 250 mg BID PO 04/30/24 22:00 05/03/24 08:29 250 MG Norepinephrine Bitartrate 250 ml @ 15 mls/hr [id number] IV 05/01/24 10:15 05/01/24 10:15 15 MLS/HR Examination: LUNGS:Normal, CVS:Normal, MSK:Normal laboratory and microbiology Laboratory Tests 05/02/24 10:00 Test 05/02/24 10:00 Range/Units Serum Glucose 108 H 74-106 mg/dL Microbiology Date/Time Source Procedure Growth Status 05/01/24 10:17 Blood Blood Culture - Preliminary NO GROWTH AFTER 48 HOURS OF INCUBATION. Resulted 04/25/24 14:05 Stool Stool Culture - Final Complete 04/25/24 14:05 Stool Shiga Toxin I & II - Final Complete Problem List/Assessment/Plan Problem List/Assessment/Plan ESRD on hemodialysis, from [facility] severe Azotemia due to noncompliance Hypertension Congestive heart failure Exacerbation metabolic acidosis Anemia of chronic kidney disease Recommendations Continues UF with 3 L as tolerated Epogen [id number] IV post hemodialysis Fluid restriction Renal diet Resume home medication Awaiting social service for outpatient chair time We will continue to follow up Plan discussed with: Patient Dietary Evaluation Review Comments: 1) Consider a CCHO 45g/Renal Specific diet 2) Continue current plan of care Expected Outcomes/Goals: F/U in 3-5 days HOANG DE ANDA MD May 03, 2024 13:47
--- NOTE | 2024-05-03 14:04 | DVHPN2 ---
Subjective Seen at bedside, s/p thoracentesis. Need confirmation for Chair Time Reviewed: Care Plan, H&P, Labs, Medications, Previous Orders, Radiology, Other (Consultants) Changes from previous H/P or p: No Changes Objective Vitals Vital Signs Date Time Temp Pulse Resp B/P (MAP) Pulse Ox O2 Delivery O2 Flow Rate FiO2 05/03/24 13:00 98.2 81 18 110/46 (67) 94 98.2 05/03/24 08:00 Nasal Cannula* 4 36 Intake/Output Intake and Output 05/03/24 07:00 Intake Total 250 ml Output Total 50 ml Balance 200 ml Intake Oral 200 ml IV Total 50 ml Output Urine Total 50 ml # Bowel Movements 2 General Appearance: Alert, Oriented X3, Cooperative HEENT: Atraumatic Neck: Other (Right IJ Line) Lungs: Other (Few crackles bilateral lungs) Cardiovascular: Regular rate Abdomen: Normal bowel sounds, Soft Extremities: Other (Some edema bilateral upper and lower extremity) Medications Current Medications Medications Dose Ordered Sig/Camacho Route Start Time Stop Time Status Last Admin Dose Admin Diagnostic Test (Pha) 1 strip IQ4HR 04/22/24 20:00 05/03/24 08:27 1 STRIP Insulin Human Regular IQ4HR SC 04/22/24 20:00 04/24/24 12:23 4 UNITS Dextrose 50 ml UD PRN IV 04/22/24 17:00 04/23/24 00:14 50 ML Lorazepam 0.5 mg Q6HP PRN PO 04/22/24 17:00 Al Hydrox/Mg Hydrox/Simethicone 30 ml Q6HP PRN PO 04/22/24 17:00 04/29/24 08:59 30 ML Docusate Sodium 100 mg BIDPRN PRN PO 04/22/24 17:00 Ondansetron HCl 4 mg Q4HP PRN IV 04/22/24 17:00 05/01/24 10:30 4 MG Acetaminophen 650 mg Q8HR PRN PO 04/24/24 17:30 05/03/24 10:47 650 MG Ceftriaxone Sodium 50 ml @ 100 mls/hr DAILY@09 IV 04/25/24 09:00 05/03/24 08:28 100 MLS/HR Doxycycline Monohydrate 100 mg Q12HR PO 04/24/24 22:00 12/26/24 08:28 100 MG Pantoprazole Sodium 40 mg DAILY@0600 PO 04/30/24 06:00 05/03/24 05:40 40 MG Hydralazine HCl 10 mg Q6HP PRN IV 04/30/24 08:00 04/30/24 08:17 10 MG Metronidazole 500 mg Q8HR PO 04/30/24 14:00 05/03/24 05:40 500 MG Saccharomyces Boulardii 250 mg BID PO 04/30/24 22:00 05/03/24 08:29 250 MG Norepinephrine Bitartrate 250 ml @ 15 mls/hr [id number] IV 05/01/24 10:15 05/01/24 10:15 15 MLS/HR Laboratory Results Laboratory Tests 05/02/24 10:00 Urinalysis Test 04/22/24 17:30 Urine Color Light-yellow (Yellow) Urine Clarity Clear (Clear) Urine pH 6.5 (5.0-9.0) Urine Specific [place] 1.012 (1.001-1.035) Urine Protein 3+ (Negative) H Urine Ketones Negative (Negative) Urine Blood 2+ /uL (Negative) H Urine Nitrite Negative (Negative) Urine Bilirubin Negative (Negative) Urine Urobilinogen Normal mg/dL (Negative) Urine Leukocyte Esterase 1+ /uL (Negative) Urine RBC 15 /hpf (0 - 4) Urine WBC 9 /hpf (0 - 5) Urine Squamous Epithelial Cells Few /hpf (<5) Urine Bacteria None seen /hpf (None Seen) Urine Glucose 2+ mg/dL (Normal) H Microbiology Microbiology Date/Time Source Procedure Growth Status 05/01/24 10:17 Blood Blood Culture - Preliminary NO GROWTH AFTER 48 HOURS OF INCUBATION. Resulted 04/25/24 14:05 Stool Stool Culture - Final Complete 04/25/24 14:05 Stool Shiga Toxin I & II - Final Complete Assessment/Plan Assessment/Plan # Pulm Edema # Possible Cardiogenic Shock?? - Resolved # Right Basilic DVT - Vascular Consult noted. US today # Possible Ischemic Colitis vs Malignancy- GI Cx. Repeat ABD/PELVIS with Oral and IV Contrast done. RULED OUT. Possible due to fluid overload. Pain resolved # ESRD on HD # Possible Gram Neg vs Aspiration PNA - Abx # Enlarged Para aortic Lymph Node- CT with Contrast noted Plan discussed with: Patient My Orders Orders - FRAN SAMPSON MD Procedure Category Date Status Time Thoracentesis US 05/03/24 Resulted 09:28 * Educational Therapy Teacher CONS 05/03/24 Transmitted Consult Date of Service: May 03, 2024 Billing Provider: FRAN SAMPSON MD Common Visit Codes: [id number] INP/OBS CARE(MOD) FRAN SAMPSON MD May 03, 2024 14:04
[2024-05-03] MEDS: EPOETIN ALFA-EPBX 4,000 UNIT/ML VIAL SC ONE (21:11)
[2024-05-04] VITALS (7 sets, daily range): BP systolic 100–159; BP diastolic 37–67; PULSE 80–90; RESP 14–18; TEMP 36.8; O2SAT 91–98
[2024-05-04] MEDS ORDERED: SACC250C PO (09:22)
--- NOTE | 2024-05-04 09:26 | DVHDS2 ---
Discharge Summary Date of Admission Apr 22, 2024 at 16:49 Date of Discharge: May 04, 2024 Admitting Diagnosis Pulm Edema Labs/Diagnostic Data: Laboratory Results Test 05/04/24 08:34 05/03/24 10:25 05/02/24 10:00 05/01/24 10:17 POC Glucose 119 mg/dl (70-106) Body Fluid Source Pleural fluid Body Fluid pH 8.0 Body Fluid WBC (Manual) 117 CUMM (0-200) Body Fluid RBC (Manual) 235 CUMM (0-2000) Body Fluid Mononuclear Cells 97 % Body Fluid Polymorphonuclear Cells 3 % (0-25) White Blood Count 3.2 10^3/uL (4.4-10.8) Red Blood Count 3.20 10^6/uL (4.0-5.20) Hemoglobin 10.5 g/dL (12.2-16.2) Hematocrit 32.1 % (36.0-46.0) Mean Corpuscular Volume 100.5 fL (80.0-100.0) Mean Corpuscular Hemoglobin 33.0 pg (28.0-32.0) Mean Corpuscular Hemoglobin Concent 32.8 g/dL (32.0-36.0) Red Cell Distribution Width 13.9 % (11.8-14.3) Platelet Count 119 10^3/uL (140-450) Mean Platelet Volume 10.0 fL (6.9-10.8) Neutrophils (%) (Auto) 54.0 % (37.0-80.0) Lymphocytes (%) (Auto) 22.3 % (10.0-50.0) Monocytes (%) (Auto) 15.2 % (0.0-12.0) Eosinophils (%) (Auto) 7.2 % (0.0-7.0) Basophils (%) (Auto) 1.3 % (0.0-2.0) Neutrophils # (Auto) 1.7 10 ^3/uL (1.6-8.6) Lymphocytes # (Auto) 0.7 10 ^3/uL (0.4-5.4) Monocytes # (Auto) 0.5 10 ^3/uL (0-1.3) Eosinophils # (Auto) 0.2 10 ^3/uL (0-0.8) Basophils # (Auto) 0 10 ^3/uL (0-0.2) Nucleated Red Blood Cells 0.1 % Sodium Level 140 mmol/L (136-145) Potassium Level 3.2 mmol/L (3.5-5.1) Chloride Level 103 mmol/L (98-107) Carbon Dioxide Level 27 mmol/L (20-31) Anion Gap 10 (5-15) Blood Urea Nitrogen 19 mg/dL (9-23) Creatinine 5.10 mg/dL (0.550-1.02) Glomerular Filtration Rate Calc 9 mL/min (>90) BUN/Creatinine Ratio 3.7 (10.0-20.0) Serum Glucose 108 mg/dL (74-106) Calcium Level 8.2 mg/dL (8.7-10.4) Magnesium Level 1.8 mg/dL (1.6-2.6) Lactic Acid Level 0.8 mmol/L (0.4-2.0) Total Bilirubin 0.5 mg/dL (0.2-1.0) Aspartate Amino Transferase (AST) 23 U/L (13-40) Alanine Aminotransferase (ALT) 12 U/L (7-40) Alkaline Phosphatase 134 U/L (46-116) Total Protein 6.1 g/dL (5.7-8.2) Albumin 3.5 g/dL (3.2-4.8) Test 04/29/24 16:05 04/26/24 12:00 04/25/24 14:05 04/25/24 07:39 Lipase 61 U/L (12-53) Prothrombin Time 12.4 sec (9.3-11.8) Prothrombin Time INR 1.18 (0.9-1.15) Activated Partial Thromboplast Time 28.0 SEC (24.5-34.5) B-Type Natriuretic Peptide > 5000.00 pg/mL (0-100) Stool Occult Blood Negative (Negative) Stool Occult Blood Sample #3 (Negative) Stool for White Cells None seen Differential Total Cells Counted 100.0 (100) Neutrophils % (Manual) 79 (37.0-80.0) Band Neutrophils % (Manual) 0 Lymphocytes % (Manual) 7 (10.0-50.0) Monocytes % (Manual) 8 (0-12) Eosinophils % (Manual) 6 (0-7) Basophils % (Manual) 0 (0.0-2.0) Metamyelocytes % (manual) 0 Myelocytes % (Manual) 0 Promyelocytes % (Manual) 0 Blast Cells % (Manual) 0 Reactive Lymphocytes 0 Platelet Estimate Decreased Macrocytosis Slight Test 04/24/24 06:22 04/23/24 04:23 04/22/24 17:30 04/22/24 13:32 Carcinoembryonic Antigen 3.13 ng/mL (<=5.0) Phosphorus Level 5.8 mg/dL (2.4-5.1) Urine Color Light-yellow (Yellow) Urine Clarity Clear (Clear) Urine pH 6.5 (5.0-9.0) Urine Specific [place] 1.012 (1.001-1.035) Urine Protein 3+ (Negative) Urine Ketones Negative (Negative) Urine Blood 2+ /uL (Negative) Urine Nitrite Negative (Negative) Urine Bilirubin Negative (Negative) Urine Urobilinogen Normal mg/dL (Negative) Urine Leukocyte Esterase 1+ /uL (Negative) Urine RBC 15 /hpf (0 - 4) Urine WBC 9 /hpf (0 - 5) Urine Squamous Epithelial Cells Few /hpf (<5) Urine Bacteria None seen /hpf (None Seen) Urine Glucose 2+ mg/dL (Normal) Troponin I High Sensitivity 52 ng/L (</=34) Hepatitis A IgM Antibody Negative Hepatitis B Surface Antigen Negative (Negative) Hepatitis B Core IgM Antibody Negative (Negative) Hepatitis C Antibody Negative (Negative) Other Laboratory Tests 05/02/24 10:00 Brief Hx & Hospital Course: 69 year old female presents to Er after missing several dialysis treatments. She is out of area. She prevents with severe weakness. Her Er course is notable for critical K 9.7 and BUN 166 at 1:30pm. She was noted to have wide complex T waves and hypotension. Hyperkalemia protocol and dopamine started. Patient reports she is mostly bedbound, underwent thoracentesis also. Patient had an episode of hypotension, possible due to Cardiogenic Shock. Patient was setup with local chair time, explained in detail. Patient understands to continue dialysis with the given chair time. Patient will be discharged home Operations or Procedures ADDENDUM APPROVED REPORT EXAM: Two-dimensional and M-mode echocardiogram with Doppler and color Doppler. Blood Pressure: 156/73 mmHg INDICATION Heart Failure RISK FACTORS Height: 5'1", Weight: 122 DIMENSIONS LVDd 5.2 (3.8-5.7cm) LA (2D) 5.0 (1.9-4.0cm) Aortic Root 2.8 (2.0- 3.7cm) LVDs 3.2 (2.5-4.0cm) LA (MM) (1.9-4.0cm) Aortic Cusp Exc 1.5 (1.5- 2.0cm) EF (%) 68.0 (55-70%) Rt. Atrium 4.1 (1.9-4.0cm) Asc. Aorta 2.9 cm IVSd 1.0 (0.7-1.1cm) RV (D) 4.4 (1.8-2.4cm) PWd 0.8 (0.7-1.1cm) Mitral Valve Mitral Mitral Stenosis E wave 1.28m/s MV Mean GR. mmHg A wave 1.05m/s MV Peak GR. mmHg E/A ratio 1.2 2D MVA cm2 DECEL Time 130ms PRESS 1/2 Time ms Aortic Valve Aortic Valve Aortic Stenosis V1 0.79m/s AO Mean GR. 5mmHg V2 1.49m/s AO Peak GR. 9mmHg LVOT Diameter 1.9 (1.8-2.4cm) Doppler FUAD 1.50cm2 Pulmonic Valve V2 0.91m/s Tricuspid Valve TR Velocity 3.20m/s RVSP 57mmHg Conclusion Moderate size circumferential pericardial effusion. No clear signs of increased intrapericardial pressure, as mitral and tricuspid flow Doppler did not change with the respiratory phase. Normal left ventricular size and dimension. Normal left ventricular systolic function estimated ejection fraction of 50%. There is a grade 1 diastolic dysfunction. Normal right ventricular size and dimension. Normal right ventricular systolic function. Moderate to severely elevated right ventricular systolic pressure at 57 mm of mercury Borderline dilated right and left atria. There is moderate mitral valve regurgitation. There is moderate tricuspid valve regurgitation. The aortic valve appears normal in structure and function. The pulmonary valve is grossly normal. Condition at Discharge: Poor Final Diagnosis/Problems List # Pulm Edema # Possible Cardiogenic Shock?? # Right Basilic DVT # Possible Ischemic Colitis vs Malignancy- GI Cx. Repeat ABD/PELVIS with Oral and IV Contrast done. RULED OUT. Possible due to fluid overload. Pain resolved # ESRD on HD # Possible Gram Neg vs Aspiration PNA # Enlarged Para aortic Lymph Node- CT with Contrast noted Discharge Disposition: Home Discharge Instruct/Medications Diet: Renal Activity: Light activity Follow Up/Referral: System Operator Medications: Resume Home Meds Discharge Statement: "Patient was advised to return to the ER or call 911 if any headaches, dizziness, shortness of breath, chest pain, abdominal pain, bleeding, fevers, or worsening of medical condition. Patient was counseled about treatment plan, medications, possible side effects, patientverbalized understanding. All questions were answered to the best of my ability. This discharge took greater then 30 minutes in planning, reviewing documentation, counseling the patient, and discussing with other team members." ASSESSMENT ASSESSMENT Assessment Date of Service: May 04, 2024 Billing Provider: FRAN SAMPSON MD Common Visit Codes: [id number] DISCH DAY >30min FRAN SAMPSON MD May 04, 2024 09:25
[2024-05-04 10:06] LABS: Protein, Body Fluid 1.7 g/dL (.)
--- NOTE | 2024-05-04 15:03 | DVHPN2 ---
Progress Note Date Seen: May 04, 2024 Medical Necessity Reason Pt with a Central, PICC or Fol: No The following are medically ne: Central Line Subjective Review of Systems Pt reports she feel better. Last HD 05/03 Patient reports: No new complaints Objective vital signs Vital Sign Date Time Temp Pulse Resp B/P (MAP) Pulse Ox O2 Delivery O2 Flow Rate FiO2 05/04/24 13:00 98.0 81 18 133/67 (89) 94 98.0 05/04/24 08:00 Nasal Cannula* 4 36 Total Intake and Output 05/03/24 05/03/24 05/04/24 15:00 23:00 07:00 Intake Total 50 ml 118 ml 475 ml Output Total 100 ml 50 ml Balance 50 ml 18 ml 425 ml medications Current Medications Medications Dose Ordered Sig/Camacho Route Start Time Stop Time Status Last Admin Dose Admin Diagnostic Test (Pha) 1 strip IQ4HR 04/22/24 20:00 05/04/24 11:49 1 STRIP Insulin Human Regular IQ4HR SC 04/22/24 20:00 04/24/24 12:23 4 UNITS Dextrose 50 ml UD PRN IV 04/22/24 17:00 04/23/24 00:14 50 ML Lorazepam 0.5 mg Q6HP PRN PO 04/22/24 17:00 Al Hydrox/Mg Hydrox/Simethicone 30 ml Q6HP PRN PO 04/22/24 17:00 04/29/24 08:59 30 ML Docusate Sodium 100 mg BIDPRN PRN PO 04/22/24 17:00 Ondansetron HCl 4 mg Q4HP PRN IV 04/22/24 17:00 05/01/24 10:30 4 MG Acetaminophen 650 mg Q8HR PRN PO 04/24/24 17:30 05/04/24 01:00 650 MG Ceftriaxone Sodium 50 ml @ 100 mls/hr DAILY@09 IV 04/25/24 09:00 05/04/24 08:36 100 MLS/HR Doxycycline Monohydrate 100 mg Q12HR PO 04/24/24 22:00 05/04/24 08:36 100 MG Pantoprazole Sodium 40 mg DAILY@0600 PO 04/30/24 06:00 05/04/24 05:14 40 MG Hydralazine HCl 10 mg Q6HP PRN IV 04/30/24 08:00 04/30/24 08:17 10 MG Metronidazole 500 mg Q8HR PO 04/30/24 14:00 05/04/24 13:58 500 MG Saccharomyces Boulardii 250 mg BID PO 04/30/24 22:00 05/04/24 08:36 250 MG Examination Gen: Appears stated age, in no acute distress Pulm: Bilateral air entry, no rales CVS: RRR, normal S1 and S2 Ext: No edema noted Neuro: AOx4 laboratory and microbiology Laboratory Tests 05/02/24 10:00 Test 05/02/24 10:00 Range/Units Serum Glucose 108 H 74-106 mg/dL Microbiology Date/Time Source Procedure Growth Status 05/03/24 10:25 Pleural Fluid Gram Stain - Final Resulted 05/03/24 10:25 Pleural Fluid Aerobic Culture - Preliminary Resulted 05/01/24 10:17 Blood Blood Culture - Preliminary NO GROWTH AFTER 72 HOURS OF INCUBATION. Resulted 04/25/24 14:05 Stool Stool Culture - Final Complete 04/25/24 14:05 Stool Shiga Toxin I & II - Final Complete Labs and/or images reviewed: Labs reviewed by me Problem List/Assessment/Plan Problem List/Assessment/Plan IMP ESRD on hemodialysis, from [place] area- has chair time set up with US Renal severe Azotemia due to noncompliance Hypertension-ongoing Congestive heart failure Exacerbation metabolic acidosis Anemia of chronic kidney disease- Labs from 05/02 stable hgb REC Pt has discharge orders for today- per CM chair time for HD has been set up with US Renal for T/Th/Sat, and pt has been given the information Pt to have HD tomorrow with US Renal Follow fluid restriction Follow Renal diet Plan discussed with: Patient Dietary Evaluation Review Comments: 1) Consider a CCHO 45g/Renal Specific diet 2) Continue current plan of care Expected Outcomes/Goals: F/U in 3-5 days JP HUERTA May 04, 2024 15:03
== END 2024-05-04 16:35 | disposition home or self-care (01) | DRG 177 ==
LOC: ER 12:33 → EDBD 12:33 → TELE 16:49 → TELE-WESTW 04-23 18:20 → WEST WING 04-27 21:41 → TELE-WESTW 04-28 19:31
PROVIDERS: ADMIT Hospitalist; ATTEND Internal Medicine
PROC: 02H633Z Insertion of Infusion Device into Right Atrium, Percutaneous Approach (ICD-10-PCS; principal; 2024-04-22)
PROC: 5A1D70Z Performance of Urinary Filtration, Intermittent, Less than 6 Hours Per Day (ICD-10-PCS; 2024-04-22)
PROC: 5A1D70Z Performance of Urinary Filtration, Intermittent, Less than 6 Hours Per Day (ICD-10-PCS; 2024-04-25)
PROC: 5A1D70Z Performance of Urinary Filtration, Intermittent, Less than 6 Hours Per Day (ICD-10-PCS; 2024-04-28)
PROC: 5A1D70Z Performance of Urinary Filtration, Intermittent, Less than 6 Hours Per Day (ICD-10-PCS; 2024-05-01)
PROC: 5A1D70Z Performance of Urinary Filtration, Intermittent, Less than 6 Hours Per Day (ICD-10-PCS; 2024-05-03)
PROC: 0W9B3ZZ Drainage of Left Pleural Cavity, Percutaneous Approach (ICD-10-PCS; 2024-05-03)
DX: J15.69 Pneumonia due to other Gram-negative bacteria (principal); J96.21 Acute and chronic respiratory failure with hypoxia; N18.6 End stage renal disease; R57.0 Cardiogenic shock; I13.2 Hypertensive heart and chronic kidney disease with heart failure and with stage 5 chronic kidney disease, or end stage renal disease; J44.0 Chronic obstructive pulmonary disease with (acute) lower respiratory infection; N17.9 Acute kidney failure, unspecified; J98.11 Atelectasis; I31.39 Other pericardial effusion (noninflammatory); K55.9 Vascular disorder of intestine, unspecified; E87.20 Acidosis, unspecified; J69.0 Pneumonitis due to inhalation of food and vomit; E87.5 Hyperkalemia; E87.70 Fluid overload, unspecified; D50.9 Iron deficiency anemia, unspecified; E11.22 Type 2 diabetes mellitus with diabetic chronic kidney disease; I49.9 Cardiac arrhythmia, unspecified; D63.1 Anemia in chronic kidney disease; I50.9 Heart failure, unspecified; E78.5 Hyperlipidemia, unspecified; F17.200 Nicotine dependence, unspecified, uncomplicated; E11.40 Type 2 diabetes mellitus with diabetic neuropathy, unspecified; Z83.3 Family history of diabetes mellitus; Z88.6 Allergy status to analgesic agent; Z88.5 Allergy status to narcotic agent; Z91.199 Patient's noncompliance with other medical treatment and regimen due to unspecified reason; Z91.158 Patient's noncompliance with renal dialysis for other reason; Z74.01 Bed confinement status; Z79.4 Long term (current) use of insulin; Z99.2 Dependence on renal dialysis
CPT/HCPCS: 32555; 36415; 36556; 71045; 74176; 74177; 76604; 76942; 80048; 80053; 80074; 81001; 82270; 82378; 82962; 83605; 83690; 83735; 83880; 83986; 84100; 84484; 85007; 85025; 85027; 85048; 85610; 85730; 87040; 87045; 87070; 87205; 87427; 89051; 90935; 93005; 93306; 93971; 94640; 94644; 96365; 96375; 97110; 97116; 97163; 97530; 99291; G0378; J1642; J1815; J2405; J2543; J3490

== ENCOUNTER 2024-06-07 22:18 | Inpatient (IN) | payer OTHER, MEDICAID ==
[~2024-06-07] VITALS: Ht 152.4 cm; Wt 49.5 kg
[~2024-06-07 22:18] MED LIST changes: -METF500T PO; +SACC250C PO
--- NOTE | 2024-06-07 22:44 | ED.PDOC ---
Musculoskeletal HPI Comments 69-year-old female came to ER via EMS due to malfunctioning dialysis fistula. Patient has history of hypertension, end-stage renal disease, currently on dialysis every Tuesday, and Tuesday. Patient was having her dialysis session earlier today, able to finish her dialysis, when nurse's noted that the dialysis fistula at her left upper arm is bleeding. Paramedics were able to stop the bleeding by wrapping it tightly with gauze and brought to the ER for further management. Chief Complaint: Upper Extremity Time Seen by MD: 22:43 Primary Care Provider: UNKNOWN Reviewed Notes: Nurses Notes Allergies: Coded Allergies: Hydrocodone (Verified Allergy, Severe, 04/22/24) Morphine (Verified Allergy, Severe, 04/22/24) Home Meds Active Scripts Yeast (S. Boulardii)(S. Cerevi (Florastor) 250 Mg Cap, 250 MG PO BID for 30 Days, #60 CAP Prov:FRAN SAMPSON MD 05/04/24 Carvedilol (COREG) 3.125 Mg Tab, 3.125 MG PO Q12HR for 60 Days, #120 TAB Prov:TASNEEM DE JESUS MD 01/08/17 Spironolactone (Aldactone) 25 Mg Tab, 25 MG PO DAILY, #30 TAB Prov:TASNEEM DE JESUS MD 01/08/17 Cholecalciferol (Vitamin D3) 1,000 Unit Tab, 2000 UNIT PO DAILY, #30 TAB Prov:TASNEEM DE JESUS MD 01/08/17 Captopril (Captopril) 12.5 Mg Tab, 12.5 MG PO Q8HR, #90 TAB Prov:TASNEEM DE JESUS MD 01/08/17 Information Source: Patient Mode of Arrival: EMS Location: Left Extremity Location: Arm Timing: Minutes Severity: Moderate Mechanism: Other (Bleeding dialysis fistula site) Circumstances: Other (Bleeding dialysis fistula site) Onset of Symptoms: Spontaneous Associated signs and symptoms: Arm pain (Left dialysis fistula) Past Medical History PAST MEDICAL HISTORY: Anemia, COPD, DM, ESRD, High Lipids, HTN, [place] Surgical History (Other): Dialysis every Tuesday WOOD MOLDER History: No Pertinent WOOD MOLDER History Family History Family History: Reviewed,noncontributory to illness Social History Smoker: Non-Smoker Alcohol: Denies ETOH Use Drugs: Denies Drug Use Lives In: Home Constitutional: denies: chills, diaphoresis, fatigue, fever, malaise, sweats, weakness, others EENTM: denies: blurred vision, double vision, ear bleeding, ear discharge, ear drainage, ear pain, ear ringing, eye pain, eye redness, hearing loss, mouth pain, mouth swelling, nasal discharge, nose bleeding, nose congestion, nose pain, photophobia, tearing, throat pain, throat swelling, voice changes, others Respiratory: denies: cough, hemoptysis, orthopnea, SOB at rest, shortness of breath, SOB with excertion, stridor, wheezing, others Cardiovascular: denies: chest pain, dizzy spells, diaphoresis, Dyspnea on exertion, edema, irregular heart beat, left arm pain, lightheadedness, palpitations, PND, syncope, others Gastrointestinal: denies: abdomen distended, abdominal pain, blood streaked bowels, constipated, diarrhea, dysphagia, difficulty swallowing, hematemesis, melena, nausea, poor appetite, poor fluid intake, rectal bleeding, rectal pain, vomiting, others Genitourinary: denies: abnormal vagina bleeding, burning, dyspareunia, dysuria, flank pain, frequency, hematuria, incontinence, pain, , vagina discharge, urgency, others Neurological: denies: dizziness, fainting, headache, left sided numbness, left sided weakness, numbness, paresthesia, pre-existing deficit, right sided numbness, right sided weakness, seizure, speech problems, tingling, tremors, weakness, others Musculoskeletal: reports: others (Dialysis fistula site left upper arm); denies: back pain, gout, joint pain, joint swelling, muscle pain, muscle stiffness, neck pain Integumetry: denies: bruises, change in color, change in hair/nails, dryness, laceration, lesions, lumps, rash, wounds, others Allergic/Immunocompromised: denies: Difficulty Healing, Frequent Infections, Hives, Itching, others Hematologic/Lymphatic: denies: anemia, blood clots, easy bleeding, easy bruising, swollen glands, others Endocrine: denies: excessive hunger, excessive sweating, excessive thirst, excessive urination, flushing, intolerance to cold, intolerance to heat, unexp lained weight gain, unexplained weight loss, others Psychiatric: denies: anxiety, bipolar disorder, depression, hopeless, panic disorder, schizophrenia, sleepless, suicidal, others Physical Exam General Appearance: No Apparent Distress, Normal HEENT: Normal ENT Inspection, Pharynx Normal, TMs Normal Neck: Full Range of Motion, Non-Tender, Normal, Normal Inspection Respiratory: Chest Non-Tender, Lungs Clear, No Accessory Muscle Use, No Respiratory Distress, Normal Breath Sounds Cardiovascular: No Edema, No JVD, No Murmur, No Gallop, Normal Peripheral Pulses, Regular Rate/Rhythm Breast Exam: Deferred Gastrointestinal: No Organomegaly, Non Tender, No Pulsatile Mass, Normal Bowel Sounds, Soft Genitalia: Deferred Pelvic: Deferred Rectal: Deferred Extremities: No calf tenderness, Normal capillary refill, Normal range of motion, Non-tender, No pedal edema, Other (Bleeding dialysis fistula site left upper arm) Musculoskeletal : Apperance: Normal Neurologic: Alert, agriscience instructor II-XII nml as Tested, No Motor Deficits, Normal Affect, Normal Mood, No Sensory Deficits Cerebellar Function: Normal Reflexes: Normal Skin: Dry, Normal Color, Warm Lymphatic: No Adenopathy Was a procedure done? Was a procedure done?: No Differential Diagnosis EXT Differential Diagnosis: Cellulitis, Laceration, Other (Malfunctioning dialysis fistula) X-Ray, Labs, Meds, VS Vital Signs Date Time Temp Pulse Resp B/P (MAP) Pulse Ox O2 Delivery O2 Flow Rate FiO2 06/08/24 00:53 98.3 71 15 140/63 (88) 95 98.3 06/08/24 00:41 99 Nasal Cannula* 4 36 06/07/24 22:18 98.9 84 16 195/104 (134) 84 Lab Test 06/07/24 23:05 Range/Units White Blood Count 3.2 L 4.4-10.8 10^3/uL Red Blood Count 2.87 L 4.0-5.20 10^6/uL Hemoglobin 9.6 L 12.2-16.2 g/dL Hematocrit 28.7 L 36.0-46.0 % Mean Corpuscular Volume 100.1 H 80.0-100.0 fL Mean Corpuscular Hemoglobin 33.4 H 28.0-32.0 pg Mean Corpuscular Hemoglobin Concent 33.3 32.0-36.0 g/dL Red Cell Distribution Width 15.1 H 11.8-14.3 % Platelet Count 123 L 140-450 10^3/uL Mean Platelet Volume 9.8 6.9-10.8 fL Neutrophils (%) (Auto) 54.5 37.0-80.0 % Lymphocytes (%) (Auto) 25.4 10.0-50.0 % Monocytes (%) (Auto) 11.9 0.0-12.0 % Eosinophils (%) (Auto) 6.4 0.0-7.0 % Basophils (%) (Auto) 1.8 0.0-2.0 % Neutrophils # (Auto) 1.7 1.6-8.6 10 ^3/uL Lymphocytes # (Auto) 0.8 0.4-5.4 10 ^3/uL Monocytes # (Auto) 0.4 0-1.3 10 ^3/uL Eosinophils # (Auto) 0.2 0-0.8 10 ^3/uL Basophils # (Auto) 0.1 0-0.2 10 ^3/uL Nucleated Red Blood Cells 0.1 % Prothrombin Time 12.1 H 9.3-11.8 sec Prothrombin Time INR 1.16 H 0.9-1.15 Sodium Level 136 136-145 mmol/L Potassium Level 3.2 L 3.5-5.1 mmol/L Chloride Level 96 L 98-107 mmol/L Carbon Dioxide Level 33 H 20-31 mmol/L Anion Gap 7 5-15 Blood Urea Nitrogen 25 H 9-23 mg/dL Creatinine 2.20 H 0.550-1.02 mg/dL Glomerular Filtration Rate Calc 24 >90 mL/min BUN/Creatinine Ratio 11.4 10.0-20.0 Serum Glucose 152 H 74-106 mg/dL Calcium Level 9.5 8.7-10.4 mg/dL Time of 1ST Reevaluation: 22:37 Reevaluation 1ST: Unchanged Patient Education/Counseling: Diagnosis, Treatment Family Education/Counseling: No Family Present Departure 1 Departure Time of Disposition: 03:08 (With a fleeting fistula. Patient bled extensively. Applied TXA and ultimately bleeding stopped. We will admit patient for further workup and vascular consultation.) Impression: Primary Impression: Hemorrhage of arteriovenous fistula Qualified Codes: T82.838A - Hemorrhage due to vascular prosthetic devices, implants and grafts, initial encounter Disposition: ADMITTED INPATIENT Admit to: Med Surg Condition: Serious Critical Care Note Critical Care Time?: Yes Critical care comment: AV fistula hemorrhage Authorized and Performed by: Liana Zacarias MD Total critical care time: Approximately 38 minutes Due to a high probability of clinically significant, life threatening deterioration, the patient required my highest level of preparedness to intervene emergently and I personally spent this critical care time directly and personally managing the patient. This critical care time included obtaining a history; examining the patient; pulse oximetry; ordering and review of studies; arranging urgent treatment with development of a management plan; evaluation of patient's response to treatment; frequent reassessment; and, discussions with other providers. This critical care time was performed to assess and manage the high probability of imminent, life-threatening deterioration that could result in multi-organ failure. It was exclusive of separately billable procedures and treating other patients and teaching time. Please see my other sections and the rest of the note for further information on patient assessment and treatment. Stability Stability form required: No Heart Score Heart Score: Heart Score Response (Comments) Value History N/A 0 EKG N/A 0 Age N/A 0 Risk Factors N/A 0 Troponin N/A 0 Total 0 I personally scribed for LIANA ZACARIAS MD ([email or web address]) on 06/07/24 at 22:44. Electronically submitted by Yimi Samano ([email or web address]). LIANA ZACARIAS MD Jun 07, 2024 22:44
[2024-06-07 23:21] LABS: Basophils # (auto) 0.1 10 ^3/uL (0-0.2); Basophils % (auto) 1.8 % (0.0-2.0); Eosinophils # (auto) 0.2 10 ^3/uL (0-0.8); Eosinophils % (auto) 6.4 % (0.0-7.0); Hematocrit 28.7 % (36.0-46.0); Hemoglobin 9.6 g/dL (12.2-16.2); Lymphocytes # (auto) 0.8 10 ^3/uL (0.4-5.4); Lymphocytes % (auto) 25.4 % (10.0-50.0); Mean Corpuscular Hemoglobin 33.4 pg (28.0-32.0); Mean Corpuscular Hgb Conc. 33.3 g/dL (32.0-36.0); Mean Corpuscular Volume 100.1 fL (80.0-100.0); Monocytes # (auto) 0.4 10 ^3/uL (0-1.3); Monocytes % (auto) 11.9 % (0.0-12.0); Neutrophils # (auto) 1.7 10 ^3/uL (1.6-8.6); Neutrophils % (auto) 54.5 % (37.0-80.0); Nucleated Red Blood Cells % 0.1 %; Platelet Count (auto) 123 10^3/uL (140-450); Red Blood Cells 2.87 10^6/uL (4.0-5.20); Red Cell Distribution Width 15.1 % (11.8-14.3); White Blood Cell 3.2 10^3/uL (4.4-10.8)
[2024-06-07 23:33] LABS: Sodium 136 mmol/L (136-145)
[2024-06-07 23:34] LABS: Anion Gap 7 (5-15); INR 1.16 (0.9-1.15); Prothrombin Time 12.1 sec (9.3-11.8)
[2024-06-07 23:35] LABS: Calcium 9.5 mg/dL (8.7-10.4)
[2024-06-07] MEDS: TRANEXAMIC ACID 20 ML ONE (23:35)
[2024-06-07] MEDS: SODIUM CHL 0.9% IV ONE (23:35)
[2024-06-07] MEDS: TRANEXAMIC ACID IV ONE (23:35)
[2024-06-07 23:40] LABS: BUN/Creatinine Ratio 11.4 (10.0-20.0)
[2024-06-08] VITALS (7 sets, daily range): BP systolic 137–149; BP diastolic 66–76; PULSE 66–81; RESP 16–18; TEMP 97.9–98.2; O2SAT 90–100
[2024-06-08 00:22] LABS: Blood Urea Nitrogen 25 mg/dL (9-23); Carbon Dioxide 33 mmol/L (20-31); Chloride 96 mmol/L (98-107); Glucose 152 mg/dL (74-106); Potassium 3.2 mmol/L (3.5-5.1)
[2024-06-08] MEDS: ACETAMINOPHEN 325 MG TAB PO ONE (03:32)
--- NOTE | 2024-06-08 08:09 | DVHHP2 ---
History of Present Illness Reason for Visit: AV fistula malfunction History of Present Illness Gama Em is a 69-year-old female with past medical history of hypertension, hyperlipidemia, diabetes, COPD, MA in 2023 with no stents since reported per patient, ESRD on HD (//), left foot surgery, and EGD who presents to the ED for left upper arm AV fistula malfunction at the dialysis site along with dizziness. Patient reports that the bleeding happened after she finished dialysis. Patient denies any recent injuries or illnesses. She also reports that she is on home oxygen4 L nasal cannula continuously. Patient reports that she is weak and she is currently using the wheelchair to mobilize. Patient denies any chest pain, shortness of breath, abdominal pain, nausea, vomiting, diarrhea, fever, chills, and headaches. Cardiovascular: HTN, MA, hyperipidemia Pulmonary: COPD Renal/: Chronic renal failure Endocrine: Diabetes Past Surgical History: Other (Left foot surgery and EGD) Family History: None Smoke: No ALCOHOL: none Drugs: None Lives: with Family Domestic Violence: Neg Review of Systems Constitutional: Yes: Other (Dizziness); No: Fever, Chills, Sweats, Weakness, Malaise Eyes: No: Pain, Vision change, Conjunctivae inflammation, Eyelid inflammation, Other, Redness ENT: No: Ear pain, Ear discharge, Nose pain, Nose discharge, Nose congestion, Mouth pain, Mouth swelling, Throat pain, Throat swelling, Other Respiratory: No: Cough, Dry, Shortness of breath, SOB with excertion, Wheezing, Hemoptysis, Pleuritic Pain, Sputum, Wheezing, Other Cardiovascular: No: Chest Pain, Palpitations, Orthopnea, Paroxysmal Noc. Dyspnea, Edema, Lt Headedness, Other Gastrointestinal: No: Nausea, Vomiting, Abdominal Pain, Diarrhea, Constipation, Melena, Hematochezia, Other Genitourinary: No Dysuria, No Frequency, No Incontinence, No Hematuria, No Retention, No Other Musculoskeletal: No: other, neck pain, shoulder pain, arm pain, back pain, hand pain, leg pain, foot pain Skin: No: Rash, Lesions, Jaundice, Bruising, Other Neurological: No: Weakness, Numbness, Incoordination, Change in speech, Confusion, Seizures, Other Other Left upper arm AV fistula bleeding Allergies: Coded Allergies: Hydrocodone (Verified Allergy, Severe, 04/22/24) Morphine (Verified Allergy, Severe, 04/22/24) Exam Vital Signs Vital Signs Date Time Temp Pulse Resp B/P (MAP) Pulse Ox O2 Delivery O2 Flow Rate FiO2 06/08/24 06:00 65 18 135/63 (87) 99 06/08/24 00:53 98.3 98.3 06/08/24 00:41 Nasal Cannula* 4 36 General Appearance: Alert, Oriented X3, Cooperative, No acute distress HEENT: Atraumatic, PERRLA, EOMI Respiratory: Clear to auscultation, Normal air movement Cardiovascular: Regular rate, Normal S1, Normal S2, No murmurs Abdominal: Normal bowel sounds, Soft, No tenderness, No hepatospenomegaly, No masses Extremities: No clubbing, No cyanosis, Normal pulses, No tenderness/swelling Neuro: Normal speech, Normal tone, Sensation intact Psych/Mental Status: Mental status NL, Mood NL Labs/Xrays Labs Test 06/07/24 23:05 Range/Units White Blood Count 3.2 L 4.4-10.8 10^3/uL Red Blood Count 2.87 L 4.0-5.20 10^6/uL Hemoglobin 9.6 L 12.2-16.2 g/dL Hematocrit 28.7 L 36.0-46.0 % Mean Corpuscular Volume 100.1 H 80.0-100.0 fL Mean Corpuscular Hemoglobin 33.4 H 28.0-32.0 pg Mean Corpuscular Hemoglobin Concent 33.3 32.0-36.0 g/dL Red Cell Distribution Width 15.1 H 11.8-14.3 % Platelet Count 123 L 140-450 10^3/uL Mean Platelet Volume 9.8 6.9-10.8 fL Neutrophils (%) (Auto) 54.5 37.0-80.0 % Lymphocytes (%) (Auto) 25.4 10.0-50.0 % Monocytes (%) (Auto) 11.9 0.0-12.0 % Eosinophils (%) (Auto) 6.4 0.0-7.0 % Basophils (%) (Auto) 1.8 0.0-2.0 % Neutrophils # (Auto) 1.7 1.6-8.6 10 ^3/uL Lymphocytes # (Auto) 0.8 0.4-5.4 10 ^3/uL Monocytes # (Auto) 0.4 0-1.3 10 ^3/uL Eosinophils # (Auto) 0.2 0-0.8 10 ^3/uL Basophils # (Auto) 0.1 0-0.2 10 ^3/uL Nucleated Red Blood Cells 0.1 % Prothrombin Time 12.1 H 9.3-11.8 sec Prothrombin Time INR 1.16 H 0.9-1.15 Sodium Level 136 136-145 mmol/L Potassium Level 3.2 L 3.5-5.1 mmol/L Chloride Level 96 L 98-107 mmol/L Carbon Dioxide Level 33 H 20-31 mmol/L Anion Gap 7 5-15 Blood Urea Nitrogen 25 H 9-23 mg/dL Creatinine 2.20 H 0.550-1.02 mg/dL Glomerular Filtration Rate Calc 24 >90 mL/min BUN/Creatinine Ratio 11.4 10.0-20.0 Serum Glucose 152 H 74-106 mg/dL Calcium Level 9.5 8.7-10.4 mg/dL Assessment/Plan Assessment/Plan Assessment/Plan: Left upper arm fistula malfunction History of end-stage renal disease on HD (T//S) Pancytopenia KIERAN Labs Pain management PT with INR Type and screen UA Antiemetics Last echo on 05/01/2024 EF 60% Nephro consult Vascular surgeon consulted by ED Hypokalemia Replete lytes Diabetes type 2 uncontrolled Hemoglobin A1c ISS and Accu-Cheks FEN/PPX Diet Hep-Lock DVT prophylaxis -hold thrombocytopenic PUD prophylaxis not indicated no history of GERD or GI bleed Admit to med surg Home medications reconciled Discussed plan of care with patient and nurse Plan discussed with: Patient Date of Service: Jun 08, 2024 Billing Provider: NATHALIE GARVIN Common Visit Codes: [id number] INP/OBS CARE (HIGH) NATHALIE GARVIN Jun 08, 2024 08:09
[2024-06-08] MEDS ORDERED: POTASSIUM CHL 20 Meq TABLET PO ONE (08:15)
[2024-06-08] MEDS ORDERED: ACETAMINOPHEN 325 MG TAB PO PRN (08:15)
[2024-06-08] MEDS ORDERED: ONDANSETRON HCL 4 MG/2 ML VIAL IV PRN ×2 (08:15→08:30)
[2024-06-08] MEDS ORDERED: DEXTROSE (50%) 50ML SYRG IV PRN ×2 (08:15→08:30)
[2024-06-08] MEDS: POTASSIUM CHL 20 Meq TABLET PO ONE (10:52)
[2024-06-08] MEDS: ACCU-CHEK COMFORT CURVE STRIP VI SCH (10:56)
[2024-06-08] MEDS: InsuLIN REG 1unit/0.01ml Soln (100units/ml) SC SCH (10:56)
[2024-06-08] MEDS ORDERED: InsuLIN REG 1unit/0.01ml Soln (100units/ml) SC SCH (11:30)
[2024-06-08] MEDS ORDERED: ACCU-CHEK COMFORT CURVE STRIP VI SCH (11:30)
[2024-06-08] MEDS: CAPTOPRIL 12.5 MG TAB PO SCH (22:00)
[2024-06-08] MEDS: FLORASTOR (S. BOULARDII) 250 MG CAP PO SCH (22:19)
[2024-06-08] MEDS: CARVEDILOL 3.125 MG TAB PO SCH (22:20)
[2024-06-08] MEDS: ACETAMINOPHEN 325 MG TAB PO PRN (23:55)
[2024-06-09] VITALS (9 sets, daily range): BP systolic 3–148; BP diastolic 62–164; PULSE 18–82; RESP 15–19; TEMP 97.4–97.8; O2SAT 94–100
[2024-06-09] MEDS: SPIRONOLACTONE 25 MG TAB PO SCH (10:51)
[2024-06-09] MEDS: CHOLECALCIFEROL (VITD3) 1,000UNIT=25mCg TAB PO SCH (10:52)
--- NOTE | 2024-06-09 12:58 | DVHPN2 ---
Reviewed: Care Plan, H&P, Labs, Medications, Previous Orders, Radiology Changes from previous H/P or p: No Changes Eyes: No Pain, No Vision change, No Conjunctivae inflammation, No Eyelid inflammation, No Other, No Redness ENT: No Ear pain, No Ear discharge, No Nose pain, No Nose discharge, No Nose congestion, No Mouth pain, No Mouth swelling, No Throat pain, No Throat swelling, No Other Cardiovascular: No Chest Pain, No Palpitations, No Orthopnea, No Paroxysmal Noc. Dyspnea, No Edema, No Lt Headedness, No Other Respiratory: No Cough, No Dry, No Shortness of breath, No SOB with excertion, No Wheezing, No Hemoptysis, No Pleuritic Pain, No Sputum, No Other Gastrointestinal: No Nausea, No Vomiting, No Abdominal Pain, No Diarrhea, No Constipation, No Melena, No Hematochezia, No Other Genitourinary: No Dysuria, No Frequency, No Incontinence, No Hematuria, No Retention, No Other Musculoskeletal: No other, No neck pain, No shoulder pain, No arm pain, No back pain, No hand pain, No leg pain, No foot pain Skin: No Rash, No Lesions, No Jaundice, No Bruising, No Other Objective Vitals Vital Signs Date Time Temp Pulse Resp B/P (MAP) Pulse Ox O2 Delivery O2 Flow Rate FiO2 06/09/24 12:17 69 152/60 06/09/24 09:00 97.4 17 99 97.4 06/08/24 20:00 Nasal Cannula* 4 36 Intake/Output Intake and Output 06/09/24 07:00 Intake Total 1190 ml Balance 1190 ml Intake Oral 1190 ml # Voids 3 # Bowel Movements 2 Medications Current Medications Medications Dose Ordered Sig/Camacho Route Start Time Stop Time Status Last Admin Dose Admin Ondansetron HCl 4 mg Q4HP PRN IV 06/08/24 08:30 Insulin Human Regular ACHS SC 06/08/24 11:30 Dextrose 50 ml UD PRN IV 06/08/24 08:30 Acetaminophen 650 mg Q6HP PRN PO 06/08/24 08:30 06/08/24 23:55 650 MG Diagnostic Test (Pha) 1 strip ACHS 06/08/24 11:30 06/09/24 12:16 1 STRIP Captopril 12.5 mg Q8HR PO 06/08/24 22:00 Carvedilol 3.125 mg Q12HR PO 06/08/24 22:00 06/09/24 10:52 3.125 MG Cholecalciferol 2,000 unit DAILY PO 06/09/24 10:00 06/09/24 10:52 2,000 UNIT Spironolactone 25 mg DAILY PO 06/09/24 10:00 06/09/24 10:51 25 MG Saccharomyces Boulardii 250 mg BID PO 06/08/24 22:00 06/09/24 10:51 250 MG Laboratory Results Laboratory Tests 06/07/24 23:05 HgA1c, TSH Test 06/08/24 23:05 Hemoglobin A1c 6.5 % A1C (<5.7) H Labs and/or images reviewed: Labs reviewed by me, Image(s) reviewed by me Assessment/Plan Assessment/Plan Malfunctioning left arm fistula: Radiology consult ESRD on hemodialysis Tuesday 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 Roge Choi Hypertension Diabetes Hypercholesterolemia COPD History of [place] Time spent 55 minutes Patient is full code Advanced care planning time 20 mts Plan discussed with: Patient My Orders Orders - PATRIA GRAYSON MD Procedure Category Date Status Time * Radiologist Consult CONS 06/09/24 Transmitted 12:50 Complete Blood Count LAB 06/09/24 Transmitted 12:54 Comprehensive LAB 06/09/24 Transmitted Metabolic Panel 12:54 Date of Service: Jun 09, 2024 Billing Provider: PATRIA GRAYSON MD Common Visit Codes: [id number] INP/OBS CARE(HIGH) PATRIA GRAYSON MD Jun 09, 2024 12:58
[2024-06-09 15:29] LABS: Basophils # (auto) 0.1 10 ^3/uL (0-0.2); Eosinophils # (auto) 0.1 10 ^3/uL (0-0.8); Lymphocytes # (auto) 0.8 10 ^3/uL (0.4-5.4); Monocytes # (auto) 0.4 10 ^3/uL (0-1.3); White Blood Cell 3.7 10^3/uL (4.4-10.8)
[2024-06-09 15:31] LABS: Basophils % (auto) 2.6 % (0.0-2.0); Eosinophils % (auto) 2.9 % (0.0-7.0); Hematocrit 30.9 % (36.0-46.0); Hemoglobin 10.2 g/dL (12.2-16.2); Lymphocytes % (auto) 21.4 % (10.0-50.0); Mean Corpuscular Hemoglobin 33.5 pg (28.0-32.0); Mean Corpuscular Hgb Conc. 32.9 g/dL (32.0-36.0); Mean Corpuscular Volume 101.8 fL (80.0-100.0); Monocytes % (auto) 9.8 % (0.0-12.0); Neutrophils # (auto) 2.3 10 ^3/uL (1.6-8.6); Neutrophils % (auto) 63.3 % (37.0-80.0); Nucleated Red Blood Cells % 0.3 %; Platelet Count (auto) 132 10^3/uL (140-450); Red Blood Cells 3.04 10^6/uL (4.0-5.20); Red Cell Distribution Width 15.6 % (11.8-14.3)
[2024-06-09 15:39] LABS: Alanine Aminotransferase 36 U/L (7-40); Albumin 3.6 g/dL (3.2-4.8); Anion Gap 9 (5-15); BUN/Creatinine Ratio 13.1 (10.0-20.0); Calcium 9.4 mg/dL (8.7-10.4); Carbon Dioxide 27 mmol/L (20-31); Chloride 99 mmol/L (98-107)
[2024-06-09 15:40] LABS: Bilirubin, Total 0.8 mg/dL (0.2-1.0); Sodium 135 mmol/L (136-145); Total Protein 6.2 g/dL (5.7-8.2)
[2024-06-09 15:41] LABS: Alkaline Phosphatase 175 U/L (46-116); Aspartate Aminotransferase 50 U/L (13-40); Blood Urea Nitrogen 59 mg/dL (9-23); Glucose 116 mg/dL (74-106)
[2024-06-09 15:45] LABS: Potassium 6.2 mmol/L (3.5-5.1)
[2024-06-09] MEDS: ALBUTEROL SULF 2.5 MG/0.5ML(0.5%) NEB SOLN NEB ONE ×2 (16:15→18:25)
[2024-06-09] MEDS ORDERED: DEXTROSE (50%) 50ML SYRG IV ONE (16:15)
[2024-06-09] MEDS ORDERED: InsuLIN REG 1unit/0.01ml Soln (100units/ml) IV ONE (16:15)
--- NOTE | 2024-06-09 16:32 | DVH ---
EXAM: US LT UPPER DVT Clinical History: ASSESS FISTULA Comparison: US RT UPPER DVT on DOS: 04/30/24, US RT UPPER DVT on DOS: 04/23/24 Technique: Duplex Doppler evaluation of the deep venous systems of the left upper extremity from the internal ju gular to the ulnar vein including color Doppler and spectral/pulsed waveform analysis was performed. Findings: Normal compressibility and color Doppler flow is seen in the left upper extremity veins including the internal jugular, subclavian, axillary, brachial, radial and ulnar veins. AV fistula is patent. Impression: 1. No sonographic evidence for left upper extremity DVT. 2. AV fistula is patent.
[2024-06-09] MEDS: DEXTROSE (50%) 50ML SYRG IV ONE (17:07)
[2024-06-09] MEDS: SODIUM ZIRCONIUM CYCL 10 GM PAK PO SCH (17:08)
[2024-06-09] MEDS: SODIUM BICARB 8.4% 50Meq/50ml SYR INJ IV ONE (17:08)
[2024-06-09] MEDS: InsuLIN REG 1unit/0.01ml Soln (100units/ml) IV ONE (17:10)
[2024-06-09] MEDS: CALCIUM GLUC 1,000mg/50ml-NS 50 ML IV ONE (17:24)
--- NOTE | 2024-06-09 19:46 | DVHINCON2 ---
Date of service: Jun 09, [address] Cornejo Reason for Consultation ESRD and dialysis management History of Present Illness Gama Em is a 69-year-old F with Past Medical History of Hypertension, Hyperlipidemia, Diabetes, COPD on home oxygen 4L [place] continuously, DC in 2023 with no stents, ESRD on HD (//) who presented to the hospital for left upper arm AV fistula malfunction and dizziness. Patient reports that the bleeding happened after she finished dialysis. No recent injuries or illnesses. Patient reports that she is weak and using the wheelchair to mobilize. No chest pain, shortness of breath, abdominal pain, nausea, vomiting, diarrhea, fever, chills, and headaches. Last Echo performed on 05/01/24 reported EF 60%. Labs this afternoon reported K 6.2. Na 135. Creatinine 4.49 with BUN of 59. Patient is under my care outpatient for dialysis and Nephrology standpoint. I was asked to consult. Allergies: Coded Allergies: Hydrocodone (Verified Allergy, Severe, 04/22/24) Morphine (Verified Allergy, Severe, 04/22/24) Home Meds Active Scripts Yeast (S. Boulardii)(S. Cerevi (Florastor) 250 Mg Cap, 250 MG PO BID for 30 Days, #60 CAP Prov:FRAN SAMPSON MD 05/04/24 Carvedilol (COREG) 3.125 Mg Tab, 3.125 MG PO Q12HR for 60 Days, #120 TAB Prov:TASNEEM DE JESUS MD 01/08/17 Spironolactone (Aldactone) 25 Mg Tab, 25 MG PO DAILY, #30 TAB Prov:TASNEEM DE JESUS MD 01/08/17 Cholecalciferol (Vitamin D3) 1,000 Unit Tab, 2000 UNIT PO DAILY, #30 TAB Prov:TASNEEM DE JESUS MD 01/08/17 Captopril (Captopril) 12.5 Mg Tab, 12.5 MG PO Q8HR, #90 TAB Prov:TASNEEM DE JESUS MD 01/08/17 Current Medications Current Medications Medications (Trade) Dose Ordered Sig/Camacho Route PRN Reason Start Time Stop Time Status Last Admin Captopril (Capoten Tablet) 12.5 mg Q8HR PO 06/08/24 22:00 Carvedilol (Coreg Tablet) 3.125 mg Q12HR PO 06/08/24 22:00 06/09/24 10:52 Cholecalciferol (Vitamin D3 Tablet) 2,000 unit DAILY PO 06/09/24 10:00 06/09/24 10:52 Spironolactone (Aldactone) 25 mg DAILY PO 06/09/24 10:00 06/09/24 10:51 Saccharomyces Boulardii (Florastor) 250 mg BID PO 06/08/24 22:00 06/09/24 10:51 Zirconium Oxide (Lokelma) 10 gm TID PO 06/09/24 22:00 06/11/24 14:01 06/09/24 17:08 Family History: Family history: Diabetes mellitus G8 FATHER Review of Systems Constitutional: Yes: Other (Dizziness); No: Fever, Chills, Sweats, Weakness, Malaise Respiratory: No: Cough, Dry, Shortness of breath, SOB with excertion, Wheezing, Hemoptysis, Pleuritic Pain, Sputum, Wheezing, Other Cardiovascular: No: Chest Pain, Palpitations, Orthopnea, Paroxysmal Noc. Dyspnea, Edema, Lt Headedness, Other Musculoskeletal: No: other, neck pain, shoulder pain, arm pain, back pain, hand pain, leg pain, foot pain Other Left upper arm AV fistula bleeding All other systems reviewed and negative unless otherwise noted in HPI. H&P Exam Vital Signs/I&O Vital Sign Date Time Temp Pulse Resp B/P (MAP) Pulse Ox O2 Delivery O2 Flow Rate FiO2 06/09/24 18:25 98 Nasal Cannula* 2 28 06/09/24 18:25 76 18 06/09/24 17:00 97.8 134/71 (92) 97.8 Intake and Output 06/08/24 06/09/24 19:00 07:00 Intake Total 950 ml 240 ml Balance 950 ml 240 ml Intake Oral 950 ml 240 ml # Voids 1 2 # Bowel Movements 1 1 Physical Exam Vitals and nursing notes reviewed. General Appearance: Cooperative, No acute distress HEENT: Atraumatic, PERRLA, EOMI Respiratory: Clear to auscultation, Normal air movement Cardiovascular: Regular rate, Normal S1, Normal S2, No murmurs Abdominal: Normal bowel sounds, Soft, No tenderness, No hepatospenomegaly, No masses Extremities: No clubbing, No cyanosis, Normal pulses, No tenderness/swelling Neuro: Alert, Oriented X3, Normal speech, Normal tone, Sensation intact Psych/Mental Status: Mental status NL, Mood NL Labs/Diagnostic Data Labs/Diagnostic Data Laboratory Tests Test 06/09/24 17:37 06/09/24 14:54 06/09/24 12:16 06/09/24 06:14 Range/Units POC Glucose 232 H 80 100 70-106 mg/dl White Blood Count 3.7 L 4.4-10.8 10^3/uL Red Blood Count 3.04 L 4.0-5.20 10^6/uL Hemoglobin 10.2 L 12.2-16.2 g/dL Hematocrit 30.9 L 36.0-46.0 % Mean Corpuscular Volume 101.8 H 80.0-100.0 fL Mean Corpuscular Hemoglobin 33.5 H 28.0-32.0 pg Mean Corpuscular Hemoglobin Concent 32.9 32.0-36.0 g/dL Red Cell Distribution Width 15.6 H 11.8-14.3 % Platelet Count 132 L 140-450 10^3/uL Mean Platelet Volume 10.4 6.9-10.8 fL Neutrophils (%) (Auto) 63.3 37.0-80.0 % Lymphocytes (%) (Auto) 21.4 10.0-50.0 % Monocytes (%) (Auto) 9.8 0.0-12.0 % Eosinophils (%) (Auto) 2.9 0.0-7.0 % Basophils (%) (Auto) 2.6 H 0.0-2.0 % Neutrophils # (Auto) 2.3 1.6-8.6 10 ^3/uL Lymphocytes # (Auto) 0.8 0.4-5.4 10 ^3/uL Monocytes # (Auto) 0.4 0-1.3 10 ^3/uL Eosinophils # (Auto) 0.1 0-0.8 10 ^3/uL Basophils # (Auto) 0.1 0-0.2 10 ^3/uL Nucleated Red Blood Cells 0.3 % Sodium Level 135 L 136-145 mmol/L Potassium Level 6.2 #*H 3.5-5.1 mmol/L Chloride Level 99 98-107 mmol/L Carbon Dioxide Level 27 20-31 mmol/L Anion Gap 9 5-15 Blood Urea Nitrogen 59 #H 9-23 mg/dL Creatinine 4.49 #H 0.550-1.02 mg/dL Glomerular Filtration Rate Calc 10 >90 mL/min BUN/Creatinine Ratio 13.1 10.0-20.0 Serum Glucose 116 H 74-106 mg/dL Calcium Level 9.4 8.7-10.4 mg/dL Total Bilirubin 0.8 0.2-1.0 mg/dL Aspartate Amino Transferase (AST) 50 H 13-40 U/L Alanine Aminotransferase (ALT) 36 7-40 U/L Alkaline Phosphatase 175 H 46-116 U/L Total Protein 6.2 5.7-8.2 g/dL Albumin 3.6 3.2-4.8 g/dL Test 06/08/24 23:05 06/08/24 21:51 06/08/24 17:14 06/08/24 10:55 Range/Units Hemoglobin A1c 6.5 H <5.7 % A1C POC Glucose 147 H 138 H 100 70-106 mg/dl Test 06/07/24 23:05 Range/Units White Blood Count 3.2 L 4.4-10.8 10^3/uL Red Blood Count 2.87 L 4.0-5.20 10^6/uL Hemoglobin 9.6 L 12.2-16.2 g/dL Hematocrit 28.7 L 36.0-46.0 % Mean Corpuscular Volume 100.1 H 80.0-100.0 fL Mean Corpuscular Hemoglobin 33.4 H 28.0-32.0 pg Mean Corpuscular Hemoglobin Concent 33.3 32.0-36.0 g/dL Red Cell Distribution Width 15.1 H 11.8-14.3 % Platelet Count 123 L 140-450 10^3/uL Mean Platelet Volume 9.8 6.9-10.8 fL Neutrophils (%) (Auto) 54.5 37.0-80.0 % Lymphocytes (%) (Auto) 25.4 10.0-50.0 % Monocytes (%) (Auto) 11.9 0.0-12.0 % Eosinophils (%) (Auto) 6.4 0.0-7.0 % Basophils (%) (Auto) 1.8 0.0-2.0 % Neutrophils # (Auto) 1.7 1.6-8.6 10 ^3/uL Lymphocytes # (Auto) 0.8 0.4-5.4 10 ^3/uL Monocytes # (Auto) 0.4 0-1.3 10 ^3/uL Eosinophils # (Auto) 0.2 0-0.8 10 ^3/uL Basophils # (Auto) 0.1 0-0.2 10 ^3/uL Nucleated Red Blood Cells 0.1 % Prothrombin Time 12.1 H 9.3-11.8 sec Prothrombin Time INR 1.16 H 0.9-1.15 Sodium Level 136 136-145 mmol/L Potassium Level 3.2 L 3.5-5.1 mmol/L Chloride Level 96 L 98-107 mmol/L Carbon Dioxide Level 33 H 20-31 mmol/L Anion Gap 7 5-15 Blood Urea Nitrogen 25 H 9-23 mg/dL Creatinine 2.20 H 0.550-1.02 mg/dL Glomerular Filtration Rate Calc 24 >90 mL/min BUN/Creatinine Ratio 11.4 10.0-20.0 Serum Glucose 152 H 74-106 mg/dL Calcium Level 9.5 8.7-10.4 mg/dL Microbiology Date/Time Source Procedure Growth Status 06/08/24 14:10 Nose MRSA Screen - Final Methicillin Resistant S.aureus Complete Assessment Left upper arm fistula malfunction End-stage renal disease on HD (T//) Pancytopenia Hyperkalemia Diabetes type 2 uncontrolled Plan/Recommendation Agreement with your ongoing assessment and plan of care. Schedule dialysis today. Hyperkalemia cocktail given. Continue Lokelma 10 g PO TID x 6 doses. Vascular surgeon consulted by ED. Left upper extremity US. F/u labs. Pain management prn. Reconcile and continue home medications. Additional plan as per the hospital course. Plan discussed with: Patient, Other (RN) JOSE LUIS SMITH DO Jun 09, 2024 19:46
[2024-06-09] MEDS: SODIUM CHL 0.9% 1000 ML BAG XX ONE (19:55)
[2024-06-10] VITALS (9 sets, daily range): BP systolic 130–170; BP diastolic 64–78; PULSE 67–76; RESP 16–20; TEMP 97.8–98.3; O2SAT 94–99
[2024-06-10 00:08] LABS: Potassium 3.5 mmol/L (3.5-5.1); Sodium 137 mmol/L (136-145)
[2024-06-10 00:09] LABS: Anion Gap 9 (5-15); Calcium 9.7 mg/dL (8.7-10.4); Carbon Dioxide 30 mmol/L (20-31)
[2024-06-10 00:14] LABS: BUN/Creatinine Ratio 10.1 (10.0-20.0); Blood Urea Nitrogen 23 mg/dL (9-23); Glucose 100 mg/dL (74-106)
[2024-06-10 00:20] LABS: Chloride 98 mmol/L (98-107)
--- NOTE | 2024-06-10 08:26 | DVHPN2 ---
Reviewed: Care Plan, H&P, Labs, Medications, Previous Orders, Radiology Changes from previous H/P or p: No Changes Eyes: No Pain, No Vision change, No Conjunctivae inflammation, No Eyelid inflammation, No Other, No Redness ENT: No Ear pain, No Ear discharge, No Nose pain, No Nose discharge, No Nose congestion, No Mouth pain, No Mouth swelling, No Throat pain, No Throat swelling, No Other Cardiovascular: No Chest Pain, No Palpitations, No Orthopnea, No Paroxysmal Noc. Dyspnea, No Edema, No Lt Headedness, No Other Respiratory: No Cough, No Dry, No Shortness of breath, No SOB with excertion, No Wheezing, No Hemoptysis, No Pleuritic Pain, No Sputum, No Other Gastrointestinal: No Nausea, No Vomiting, No Abdominal Pain, No Diarrhea, No Constipation, No Melena, No Hematochezia, No Other Genitourinary: No Dysuria, No Frequency, No Incontinence, No Hematuria, No Retention, No Other Musculoskeletal: No other, No neck pain, No shoulder pain, No arm pain, No back pain, No hand pain, No leg pain, No foot pain Skin: No Rash, No Lesions, No Jaundice, No Bruising, No Other Objective Vitals Vital Signs Date Time Temp Pulse Resp B/P (MAP) Pulse Ox O2 Delivery O2 Flow Rate FiO2 06/10/24 05:00 97.8 73 17 130/64 (86) 99 97.8 06/09/24 20:00 Nasal Cannula* 4 36 Intake/Output Intake and Output 06/10/24 07:00 Intake Total 600 ml Balance 600 ml Intake Oral 600 ml # Voids 1 # Bowel Movements 5 Medications Current Medications Medications Dose Ordered Sig/Camacho Route Start Time Stop Time Status Last Admin Dose Admin Ondansetron HCl 4 mg Q4HP PRN IV 06/08/24 08:30 Insulin Human Regular ACHS SC 06/08/24 11:30 06/09/24 19:44 4 UNITS Dextrose 50 ml UD PRN IV 06/08/24 08:30 Acetaminophen 650 mg Q6HP PRN PO 06/08/24 08:30 06/08/24 23:55 650 MG Diagnostic Test (Pha) 1 strip ACHS 06/08/24 11:30 06/10/24 06:20 1 STRIP Captopril 12.5 mg Q8HR PO 06/08/24 22:00 Carvedilol 3.125 mg Q12HR PO 06/08/24 22:00 06/09/24 23:08 3.125 MG Cholecalciferol 2,000 unit DAILY PO 06/09/24 10:00 06/09/24 10:52 2,000 UNIT Spironolactone 25 mg DAILY PO 06/09/24 10:00 06/09/24 10:51 25 MG Saccharomyces Boulardii 250 mg BID PO 06/08/24 22:00 06/09/24 23:00 250 MG Zirconium Oxide 10 gm TID PO 06/09/24 22:00 06/11/24 14:01 06/09/24 17:08 10 GM Laboratory Results Laboratory Tests 06/09/24 14:54 06/09/24 23:42 Chemistry Test 06/09/24 14:54 06/09/24 23:42 Albumin 3.6 g/dL (3.2-4.8) Calcium Level 9.4 mg/dL (8.7-10.4) 9.7 mg/dL (8.7-10.4) Total Protein 6.2 g/dL (5.7-8.2) LFT Test 06/09/24 14:54 Alanine Aminotransferase (ALT) 36 U/L (7-40) Alkaline Phosphatase 175 U/L (46-116) H Aspartate Amino Transferase (AST) 50 U/L (13-40) H Total Bilirubin 0.8 mg/dL (0.2-1.0) Microbiology Microbiology Date/Time Source Procedure Growth Status 06/08/24 14:10 Nose MRSA Screen - Final Methicillin Resistant S.aureus Complete Labs and/or images reviewed: Labs reviewed by me, Image(s) reviewed by me Assessment/Plan Assessment/Plan Malfunctioning left arm fistula bleeding: Patient says bleeding has now stopped, Radiology consult pending for Tuesday ESRD on hemodialysis Tuesday 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 Roge Choi, patient had dialysis on 06/09/2024 in the hospital Hypertension Diabetes Hypercholesterolemia COPD History of [place] Time spent 55 minutes Patient is full code Advanced care planning time 20 mts Plan discussed with: Patient My Orders Orders - PATRIA GRAYSON MD Procedure Category Date Status Time * Radiologist Consult CONS 06/09/24 Transmitted 12:50 Date of Service: Jun 10, 2024 Billing Provider: PATRIA GRAYSON MD Common Visit Codes: [id number] INP/OBS CARE(HIGH) PATRIA GRAYSON MD Jun 10, 2024 08:26
--- NOTE | 2024-06-10 18:49 | DVHPN2 ---
Progress Note - Dictate Date Seen: Jun 10, 2024 Has the PT tested + for MRSA If YES, has PT been informed?: No Medical Necessity Reason Pt with a Central, PICC or Fol: No Subjective Patient was seen and evaluated in follow up. No acute events overnight. No new complaints. Bleeding has now stopped per patient. Awaiting radiology consult. S/p HD yesterday. vital signs Vital Sign Date Time Temp Pulse Resp B/P (MAP) Pulse Ox O2 Delivery O2 Flow Rate FiO2 06/10/24 17:01 98.0 71 16 167/78 (107) 99 98.0 06/10/24 10:26 Nasal Cannula* 4 36 Total Intake and Output 06/09/24 06/09/24 06/10/24 15:00 23:00 07:00 Intake Total 300 ml 300 ml Balance 300 ml 300 ml medications Current Medications Medications Dose Ordered Sig/Camacho Route Start Time Stop Time Status Last Admin Dose Admin Ondansetron HCl 4 mg Q4HP PRN IV 06/08/24 08:30 Insulin Human Regular ACHS SC 06/08/24 11:30 06/10/24 11:35 3 UNITS Dextrose 50 ml UD PRN IV 06/08/24 08:30 Acetaminophen 650 mg Q6HP PRN PO 06/08/24 08:30 06/10/24 12:25 650 MG Diagnostic Test (Pha) 1 strip ACHS 06/08/24 11:30 06/10/24 17:00 1 STRIP Carvedilol 3.125 mg Q12HR PO 06/08/24 22:00 06/10/24 08:52 3.125 MG Cholecalciferol 2,000 unit DAILY PO 06/09/24 10:00 06/10/24 08:51 2,000 UNIT Spironolactone 25 mg DAILY PO 06/09/24 10:00 06/10/24 08:51 25 MG Saccharomyces Boulardii 250 mg BID PO 06/08/24 22:00 06/10/24 08:51 250 MG Zirconium Oxide 10 gm TID PO 06/09/24 22:00 06/11/24 14:01 06/09/24 17:08 10 GM Lisinopril 5 mg BID PO 06/10/24 22:00 objective Vitals and nursing notes reviewed. General Appearance: Cooperative, No acute distress HEENT: Atraumatic, PERRLA, EOMI Respiratory: Clear to auscultation, Normal air movement Cardiovascular: Regular rate, Normal S1, Normal S2, No murmurs Abdominal: Normal bowel sounds, Soft, No tenderness, No hepatospenomegaly, No masses Extremities: No clubbing, No cyanosis, Normal pulses, No tenderness/swelling Neuro: Alert, Oriented X3, Normal speech, Normal tone, Sensation intact Psych/Mental Status: Mental status NL, Mood NL laboratory and microbiology Laboratory Tests 06/09/24 23:42 06/09/24 14:54 Test 06/09/24 23:42 Range/Units Serum Glucose 100 74-106 mg/dL Problem List Left upper arm fistula malfunction End-stage renal disease on HD (//) Pancytopenia Hyperkalemia Diabetes type 2 uncontrolled Assessment/Plan Agree with current supportive medical care. Pending IR consult for malfunctioning LUE AVF. S/p HD 06/09. Continue Lokelma 10 g PO TID x 6 doses. Home medications as ordered. Pain management prn. Additional plan as per the hospital course. Plan discussed with: Patient, Other (RN) JOSE LUIS SMITH DO Jun 10, 2024 18:49
[2024-06-10] MEDS: LISINOPRIL 5 MG TAB PO SCH (22:49)
[2024-06-11 01:00] VITALS: BP 148/66; PULSE 68; RESP 16; TEMP 98.4; O2SAT 97
[2024-06-11 05:00] VITALS: BP 140/69; PULSE 65; RESP 16; TEMP 98.2; O2SAT 98
[2024-06-11 08:00] VITALS: PULSE 61
[2024-06-11 09:00] VITALS: BP 147/71; PULSE 70; RESP 16; TEMP 98; O2SAT 99
--- NOTE | 2024-06-11 09:42 | DVHPN2 ---
Reviewed: Care Plan, H&P, Labs, Medications, Previous Orders, Radiology Changes from previous H/P or p: No Changes Eyes: No Pain, No Vision change, No Conjunctivae inflammation, No Eyelid inflammation, No Other, No Redness ENT: No Ear pain, No Ear discharge, No Nose pain, No Nose discharge, No Nose congestion, No Mouth pain, No Mouth swelling, No Throat pain, No Throat swelling, No Other Cardiovascular: No Chest Pain, No Palpitations, No Orthopnea, No Paroxysmal Noc. Dyspnea, No Edema, No Lt Headedness, No Other Respiratory: No Cough, No Dry, No Shortness of breath, No SOB with excertion, No Wheezing, No Hemoptysis, No Pleuritic Pain, No Sputum, No Other Gastrointestinal: No Nausea, No Vomiting, No Abdominal Pain, No Diarrhea, No Constipation, No Melena, No Hematochezia, No Other Genitourinary: No Dysuria, No Frequency, No Incontinence, No Hematuria, No Retention, No Other Musculoskeletal: No other, No neck pain, No shoulder pain, No arm pain, No back pain, No hand pain, No leg pain, No foot pain Skin: No Rash, No Lesions, No Jaundice, No Bruising, No Other Objective Vitals Vital Signs Date Time Temp Pulse Resp B/P (MAP) Pulse Ox O2 Delivery O2 Flow Rate FiO2 06/11/24 09:00 98.0 70 16 147/71 (96) 99 98.0 06/11/24 07:58 Nasal Cannula* 4 36 Intake/Output Intake and Output 06/11/24 07:00 Intake Total 1488 ml Output Total 1 ml Balance 1487 ml Intake Oral 1488 ml Output Stool Total 1 ml # Voids 2 # Bowel Movements 2 Medications Current Medications Medications Dose Ordered Sig/Camacho Route Start Time Stop Time Status Last Admin Dose Admin Ondansetron HCl 4 mg Q4HP PRN IV 06/08/24 08:30 Insulin Human Regular ACHS SC 06/08/24 11:30 06/10/24 11:35 3 UNITS Dextrose 50 ml UD PRN IV 06/08/24 08:30 Acetaminophen 650 mg Q6HP PRN PO 06/08/24 08:30 06/10/24 12:25 650 MG Diagnostic Test (Pha) 1 strip ACHS 06/08/24 11:30 06/11/24 06:36 1 STRIP Carvedilol 3.125 mg Q12HR PO 06/08/24 22:00 06/10/24 22:51 3.125 MG Cholecalciferol 2,000 unit DAILY PO 06/09/24 10:00 06/10/24 08:51 2,000 UNIT Spironolactone 25 mg DAILY PO 06/09/24 10:00 06/10/24 08:51 25 MG Saccharomyces Boulardii 250 mg BID PO 06/08/24 22:00 06/10/24 22:54 250 MG Zirconium Oxide 10 gm TID PO 06/09/24 22:00 06/11/24 14:01 06/09/24 17:08 10 GM Lisinopril 5 mg BID PO 06/10/24 22:00 06/10/24 22:49 5 MG Laboratory Results Laboratory Tests 06/09/24 14:54 06/09/24 23:42 Microbiology Microbiology Date/Time Source Procedure Growth Status 06/08/24 14:10 Nose MRSA Screen - Final Methicillin Resistant S.aureus Complete Labs and/or images reviewed: Labs reviewed by me, Image(s) reviewed by me Assessment/Plan Assessment/Plan Malfunctioning left arm fistula bleeding: Patient says bleeding has now stopped, Radiology fixing the fistula. ESRD on hemodialysis Tuesday consult for patient's publication designer Dr. Roge Choi, patient had dialysis on 06/09/2024 in the hospital Hypertension Diabetes Hypercholesterolemia COPD History of [place] Time spent 55 minutes Patient is full code Advanced care planning time 20 mts Plan discussed with: Patient Date of Service: Jun 11, 2024 Billing Provider: PATRIA GRAYSON MD Common Visit Codes: [id number] INP/OBS CARE(HIGH) PATRIA GRAYSON MD Jun 11, 2024 09:42
[2024-06-11 10:00] VITALS: O2SAT 98
[2024-06-11 13:00] VITALS: BP 150/73; PULSE 72; RESP 16; TEMP 97.7; O2SAT 97
--- NOTE | 2024-06-11 13:30 | DVHDS2 ---
Discharge Summary Date of Admission Jun 08, 2024 at 08:02 Date of Discharge: Jun 11, 2024 Admitting Diagnosis Nonfunctioning left arm AV fistula Wounds: None Labs/Diagnostic Data: Laboratory Results Test 06/11/24 11:42 06/09/24 23:42 06/09/24 14:54 06/08/24 23:05 POC Glucose 164 mg/dl (70-106) Sodium Level 137 mmol/L (136-145) Potassium Level 3.5 mmol/L (3.5-5.1) Chloride Level 98 mmol/L (98-107) Carbon Dioxide Level 30 mmol/L (20-31) Anion Gap 9 (5-15) Blood Urea Nitrogen 23 mg/dL (9-23) Creatinine 2.27 mg/dL (0.550-1.02) Glomerular Filtration Rate Calc 23 mL/min (>90) BUN/Creatinine Ratio 10.1 (10.0-20.0) Serum Glucose 100 mg/dL (74-106) Calcium Level 9.7 mg/dL (8.7-10.4) White Blood Count 3.7 10^3/uL (4.4-10.8) Red Blood Count 3.04 10^6/uL (4.0-5.20) Hemoglobin 10.2 g/dL (12.2-16.2) Hematocrit 30.9 % (36.0-46.0) Mean Corpuscular Volume 101.8 fL (80.0-100.0) Mean Corpuscular Hemoglobin 33.5 pg (28.0-32.0) Mean Corpuscular Hemoglobin Concent 32.9 g/dL (32.0-36.0) Red Cell Distribution Width 15.6 % (11.8-14.3) Platelet Count 132 10^3/uL (140-450) Mean Platelet Volume 10.4 fL (6.9-10.8) Neutrophils (%) (Auto) 63.3 % (37.0-80.0) Lymphocytes (%) (Auto) 21.4 % (10.0-50.0) Monocytes (%) (Auto) 9.8 % (0.0-12.0) Eosinophils (%) (Auto) 2.9 % (0.0-7.0) Basophils (%) (Auto) 2.6 % (0.0-2.0) Neutrophils # (Auto) 2.3 10 ^3/uL (1.6-8.6) Lymphocytes # (Auto) 0.8 10 ^3/uL (0.4-5.4) Monocytes # (Auto) 0.4 10 ^3/uL (0-1.3) Eosinophils # (Auto) 0.1 10 ^3/uL (0-0.8) Basophils # (Auto) 0.1 10 ^3/uL (0-0.2) Nucleated Red Blood Cells 0.3 % Total Bilirubin 0.8 mg/dL (0.2-1.0) Aspartate Amino Transferase (AST) 50 U/L (13-40) Alanine Aminotransferase (ALT) 36 U/L (7-40) Alkaline Phosphatase 175 U/L (46-116) Total Protein 6.2 g/dL (5.7-8.2) Albumin 3.6 g/dL (3.2-4.8) Hepatitis B Surface Antigen Negative (Negative) Hemoglobin A1c 6.5 % A1C (<5.7) Test 06/07/24 23:05 Prothrombin Time 12.1 sec (9.3-11.8) Prothrombin Time INR 1.16 (0.9-1.15) Other Laboratory Tests 06/09/24 23:42 06/09/24 14:54 Brief Hx & Hospital Course: 69 year-old patient with diabetes hypertension hypercholesterolemia COPD AMI ESRD on hemodialysis admitted for non functioning left arm AV fistula patient has had bleeding from the site which has stopped. Patient received hemodialysis while in the hospital Radiology Dr. Massey attempted to fix the nonfunctioning AV fistula but the patient refused repeatedly and requesting to be discharged home. Patient discharged home in stable condition. Consults/Reason for consult Radiology Dr Massey Nephrology Dr.S Choi Operations or Procedures Attempt was made to fix the left arm AV fistula but patient refused Condition at Discharge: Fair Final Diagnosis/Problems List Malfunctioning left arm fistula bleeding: Patient says bleeding has now stopped, radiologist Dr. Massey advised me that patient does not want the AV fistula to be fixed and wants to be discharged home ESRD on hemodialysis Tuesday consult for patient's through freight engineer Dr. Roge Choi, patient had dialysis on 06/09/2024 in the hospital Hypertension Diabetes Hypercholesterolemia COPD History of [place] Discharge Disposition: Home Discharge Instruct/Medications Diet: Renal Activity: Light activity Follow Up/Referral: Follow up with your through freight engineer for dialysis Follow up with your primary Resumroxanne all home medications Medications: None 35 (Time taken for discharge summary 35 minutes) Discharge Statement: "Patient was advised to return to the ER or call 911 if any headaches, dizziness, shortness of breath, chest pain, abdominal pain, bleeding, fevers, or worsening of medical condition. Patient was counseled about treatment plan, medications, possible side effects, patientverbalized understanding. All questions were answered to the best of my ability. This discharge took greater then 30 minutes in planning, reviewing documentation, counseling the patient, and discussing with other team members." ASSESSMENT ASSESSMENT Hospital Course Improved Assessment Malfunctioning left arm fistula bleeding: Patient says bleeding has now stopped, radiologist Dr. Massey advised me that patient does not want the AV fistula to be fixed and wants to be discharged home ESRD on hemodialysis Tuesday consult for patient's through freight engineer Dr. Roge Choi, patient had dialysis on 06/09/2024 in the hospital Hypertension Diabetes Hypercholesterolemia COPD History of [place] Date of Service: Jun 11, 2024 Billing Provider: PATRIA GRAYSON MD Common Visit Codes: 50995-RUS/OBS DISCH DAY >30min PATRIA GRAYSON MD Jun 11, 2024 13:30
--- NOTE | 2024-06-11 18:42 | DVHPN2 ---
Progress Note - Dictate Date Seen: Jun 11, 2024 Has the PT tested + for MRSA If YES, has PT been informed?: No Medical Necessity Reason Pt with a Central, PICC or Fol: No Subjective Patient was seen and evaluated in follow up. No acute events overnight. Bleeding has now stopped per patient. No new complaints. vital signs Vital Sign Date Time Temp Pulse Resp B/P (MAP) Pulse Ox O2 Delivery O2 Flow Rate FiO2 06/11/24 13:00 97.7 72 16 150/73 (98) 97 97.7 06/11/24 10:00 Nasal Cannula 4.0 06/11/24 10:00 36 Total Intake and Output 06/10/24 06/10/24 06/11/24 15:00 23:00 07:00 Intake Total 344 ml 694 ml 450 ml Output Total 1 ml Balance 344 ml 693 ml 450 ml objective Vitals and nursing notes reviewed. General Appearance: Cooperative, No acute distress HEENT: Atraumatic, PERRLA, EOMI Respiratory: Clear to auscultation, Normal air movement Cardiovascular: Regular rate, Normal S1, Normal S2, No murmurs Abdominal: Normal bowel sounds, Soft, No tenderness, No hepatospenomegaly, No masses Extremities: No clubbing, No cyanosis, Normal pulses, No tenderness/swelling Neuro: Alert, Oriented X3, Normal speech, Normal tone, Sensation intact Psych/Mental Status: Mental status NL, Mood NL laboratory and microbiology Laboratory Tests 06/09/24 23:42 06/09/24 14:54 Test 06/09/24 23:42 Range/Units Serum Glucose 100 74-106 mg/dL Problem List Left upper arm fistula malfunction End-stage renal disease on HD (T//S) Pancytopenia Hyperkalemia Diabetes type 2 uncontrolled Assessment/Plan DC home. Resume outpatient dialysis with [facility]. US reviewed. No intervention needed. Dietary Evaluation Review Comments: provide CCHO-60 and renal standard diet for better controlled DM and blood glucose Expected Outcomes/Goals: maintain wt. healed wounds/infections. Improved blood counts Plan discussed with: Patient, Other (RN) JOSE LUIS SMITH DO Jun 11, 2024 18:42
== END 2024-06-11 14:43 | disposition home or self-care (01) | DRG 314 ==
LOC: ER 22:18 → EDBD 22:18 → OVERFLOW 06-08 08:02 → CENTRAL 06-08 08:07 → ER 06-08 08:09 → UNDOADMIN 06-08 09:12 → OVERFLOW 06-08 09:12 → CENTRAL 06-08 10:21 → TELE-CENTR 06-09 16:29
PROVIDERS: ATTEND Family Medicine
PROC: 5A1D70Z Performance of Urinary Filtration, Intermittent, Less than 6 Hours Per Day (ICD-10-PCS; principal; 2024-06-09)
DX: T82.838A Hemorrhage due to vascular prosthetic devices, implants and grafts, initial encounter (principal); N18.6 End stage renal disease; D61.818 Other pancytopenia; N17.9 Acute kidney failure, unspecified; I12.0 Hypertensive chronic kidney disease with stage 5 chronic kidney disease or end stage renal disease; E11.65 Type 2 diabetes mellitus with hyperglycemia; J44.9 Chronic obstructive pulmonary disease, unspecified; E78.00 Pure hypercholesterolemia, unspecified; Y83.2 Surgical operation with anastomosis, bypass or graft as the cause of abnormal reaction of the patient, or of later complication, without mention of misadventure at the time of the procedure; E11.22 Type 2 diabetes mellitus with diabetic chronic kidney disease; E87.5 Hyperkalemia; Z88.5 Allergy status to narcotic agent; Z99.2 Dependence on renal dialysis; Z79.899 Other long term (current) drug therapy; Z83.3 Family history of diabetes mellitus; I25.2 Old myocardial infarction; Y92.89 Other specified places as the place of occurrence of the external cause; Z99.81 Dependence on supplemental oxygen
CPT/HCPCS: 36415; 80048; 80053; 82962; 83036; 85025; 85610; 86850; 86900; 86901; 87081; 87340; 90935; 93971; 99291; G0378; J1815

== ENCOUNTER 2024-07-20 20:45 | Inpatient (IN) | payer OTHER, MEDICAID ==
[~2024-07-20] VITALS: Ht 127 cm; Wt 43.0 kg
[2024-07-20 20:53] VITALS: BP 94/52; PULSE 104; RESP 16; O2SAT 100; O2SAT 93
[2024-07-20] MEDS: IOHEXOL 350 MG/ML 100ML IJ ONE (20:53)
[2024-07-20] MEDS: ALBUTEROL SULF 2.5 MG/0.5ML(0.5%) NEB SOLN NEB ONE (21:00)
[2024-07-20] MEDS: PROPOFOL 100 ML IV SCH (21:00)
[2024-07-20] MEDS: SODIUM CHLORIDE 0.9% 1,000 ML IV ONE ×2 (21:00→23:15)
--- NOTE | 2024-07-20 21:06 | ED.PDOC ---
History of Present Illness HPI Comments 69-year-old female who came to the ER via EMS for shortness of breath. Per EMS, initial call for nausea, vomiting and diarrhea with abdominal pain. Upon arrival, patient appeared to be short of breath, saturating at 75% at 6 lpm, patient was A&O x4 on EMS initial evaluation. As patient was being loaded to the gurney, patient became weak, lethargic, apneic and passed out. Patient remained normotensive, blood sugar of 110 on scene, and patient was bagged on the way to the ER where patient remains unresponsive. Patient does have history of hypertension, diabetes and ESRD on dialysis Chief Complaint: Shortness of breath Time Seen by MD: 21:04 Primary Care Provider: UNKNOWN Reviewed Notes: Air Support Control Officer Notes Allergies: Coded Allergies: Hydrocodone (Verified Allergy, Severe, 04/22/24) Morphine (Verified Allergy, Severe, 04/22/24) Home Meds Active Scripts Yeast (S. Boulardii)(S. Cerevi (Florastor) 250 Mg Cap, 250 MG PO BID for 30 Days, #60 CAP Prov:FRAN SAMPSON MD 05/04/24 Carvedilol (COREG) 3.125 Mg Tab, 3.125 MG PO Q12HR for 60 Days, #120 TAB Prov:TASNEEM DE JESUS MD 01/08/17 Spironolactone (Aldactone) 25 Mg Tab, 25 MG PO DAILY, #30 TAB Prov:TASNEEM DE JESUS MD 01/08/17 Cholecalciferol (Vitamin D3) 1,000 Unit Tab, 2000 UNIT PO DAILY, #30 TAB Prov:TASNEEM DE JESUS MD 01/08/17 Captopril (Captopril) 12.5 Mg Tab, 12.5 MG PO Q8HR, #90 TAB Prov:TASNEEM DE JESUS MD 01/08/17 Information Source: Emergency Med Personnel Mode of Arrival: EMS Severity: Severe Timing: Minutes Duration: Since onset Prehospital treatment: Oxygen Review of Systems REVIEW OF SYSTEMS: Unable to obtain, patient unresponsive (+) patient remained unresponsive to verbal stimuli, medical urgency, intubated Vital Signs Vital Signs Date Time Temp Pulse Resp B/P (MAP) Pulse Ox O2 Delivery O2 Flow Rate FiO2 07/20/24 23:00 134/61 07/20/24 22:11 102 16 100 100 07/20/24 20:53 Mechanical Ventilator+ 07/20/24 20:45 100.8 100.8 Physical Exam General: Patient unresponsive Skin: Skin in warm, dry and intact. Appropriate color for ethnicity. Nailbeds pink with no cyanosis. HEENT: The head is normocephalic and atraumatic. Conjunctivae are clear without exudates or hemorrhage. Sclera is non-icteric. Pupils are nonreactive Eyelids are normal in appearance without swelling or lesions. Oral mucosa is pink and moist Neck: The neck is supple with normal range of motion. Positive JVD Cardiac: Heart rate and rhythm are normal. No murmurs, gallops, or rubs are auscultated. Respiratory: Agonal breathing, rhonchi bilaterally Abdominal: Abdomen is soft, without distention. Bowel sounds are present and normoactive in all four quadrants. Extremities: Upper and lower extremities are atraumatic in appearance without deformity or edema. Neurological: GCS 3 Past Medical History PAST MEDICAL HISTORY: Anemia, COPD, DM, ESRD, High Lipids, HTN, PA Surgical History: Unobtainable SUPERVISING LAW ENFORCEMENT ANALYST History: Unobtainable Family History Family History: Unobtainable Social History Smoker: Unobtainable Alcohol: Unobtainable Drugs: Unobtainable Lives In: Home Was a procedure done? 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 Indication: Hypotension, Inability to obtain IV, Suspected infection Room prepared for procedure: Yes Public Affairs Director performed hand hygien: Yes Maximal sterile barrier precau: Mask/Eye shield, Sterile gown, Cap, Sterlie gloves, Large sterlie drape Skin Preparation: Providine iodine Skin preparation completely dr: Yes Insertion site: Left, Infraclavicular Central line catheter type: Tunneled- not dialysis Number of lumens: 3 Central line exchanged over a: Yes Antiseptic ointment applied to: Yes Post Assessment: Chest X-Ray Informed consent obtained: Yes Risks/benefits/alt described: Yes Intubation Indication: Respiratory Insufficiency, Altered Mental Status Prep: Preoxygenation Pretreated with: Nothing Intubation Approach: Orotracheal Intubation size: cm (7.5) Informed consent obtained: No Risks/benefits/alt described: No Differential Dx Considerations may include: Differential diagnosis considered includes but not limited to stroke, head injury, seizure, metabolic disturbance, electrolyte imbalance, infection, substance intoxication, psychiatric cause, other systemic illness, Bronchitis, Asthma, COPD, Pneumothorax, PE, CHF, Pulmonary HTN, Anemia, CO Poisoning, Methemoglobinemia, Hyperventilation, Metabolic Acidosis, Pulmonary Edema, Pneumonia, ACS, Pericardial Tamponade, other X-Ray, Labs, Meds, VS Vital Signs Date Time Temp Pulse Resp B/P (MAP) Pulse Ox O2 Delivery O2 Flow Rate FiO2 07/20/24 23:00 134/61 07/20/24 22:45 150/65 07/20/24 22:30 148/72 07/20/24 22:15 155/74 07/20/24 22:11 102 16 143/65 (91) 100 100 07/20/24 22:00 155/74 07/20/24 21:45 142/72 07/20/24 21:30 148/72 07/20/24 21:15 123/67 07/20/24 21:08 178/76 07/20/24 21:00 124/62 07/20/24 20:57 106 07/20/24 20:53 104 16 94/52 (66) 93 100 07/20/24 20:53 100 Mechanical Ventilator+ 100 100 07/20/24 20:53 100 Mechanical Ventilator 07/20/24 20:45 100.8 106 39 178/76 (110) 77 100.8 Lab Test 07/20/24 23:21 07/20/24 23:18 07/20/24 22:09 07/20/24 21:36 Range/Units Blood Gas Specimen Type Arterial Blood Gas Sample Site Right brachial Blood Gas Patient Temperature 37.0 Arterial Blood Date Drawn [id number] Arterial Blood pH 7.317 L 7.350-7.450 Arterial Blood Partial Pressure CO2 43.6 32.0-45.0 mmHg Arterial Blood Partial Pressure O2 83.2 83.0-108.0 mmHg Arterial Blood HCO3 21.8 21.0-28.0 mmol/L Arterial Blood Oxygen Saturation 94.9 94.0-98.0 % Arterial Blood Base Excess -4.2 L -2.0-3.0 mmol/L Arterial Blood Oxyhemoglobin 93.9 L 94.0-98.0 % Arterial Blood Carboxyhemoglobin 0.7 0.5-1.5 % Arterial Blood Methemoglobin 0.4 0.0-1.5 % Lan Test Yes Blood Gas Total Hemoglobin 12.40 12.0-16.0 g/dL Blood Gas Set Respiration Rate 16.0 Blood Gas Modality Vent - ac Blood Gas Spontaneous Rate 16 FiO2 % 100.0 Blood Gas Tidal Volume 500.0 Blood Gas Inspiratory Pressure 44.0 Blood Gas PEEP or CPAP 8.0 Specimen Drawn By Blood Gas Notified Whom paola Ramirez md Blood Gas Notified Time [id number] Blood Gas Notified By Lactic Acid Level 3.6 *H 0.4-2.0 mmol/L Troponin I High Sensitivity 146 *H </=34 ng/L Triglycerides Level 232 H < 150 mg/dL Cholesterol Level 167 < 200 mg/dL LDL Cholesterol 75 < 100 mg/dL HDL Cholesterol 27 L 40-59 mg/dL Influenza Type A Antigen Negative Negative Influenza Type B Antigen Negative Negative SARS-CoV-2 Antigen (Rapid) Negative NEGATIVE Test 07/20/24 20:50 Range/Units White Blood Count 11.6 H 4.4-10.8 10^3/uL Red Blood Count 4.00 4.0-5.20 10^6/uL Hemoglobin 12.8 12.2-16.2 g/dL Hematocrit 40.4 36.0-46.0 % Mean Corpuscular Volume 101.1 H 80.0-100.0 fL Mean Corpuscular Hemoglobin 32.0 28.0-32.0 pg Mean Corpuscular Hemoglobin Concent 31.6 L 32.0-36.0 g/dL Red Cell Distribution Width 14.9 H 11.8-14.3 % Platelet Count 225 140-450 10^3/uL Mean Platelet Volume 10.1 6.9-10.8 fL Neutrophils (%) (Auto) 85.7 H 37.0-80.0 % Lymphocytes (%) (Auto) 7.7 L 10.0-50.0 % Monocytes (%) (Auto) 6.4 0.0-12.0 % Eosinophils (%) (Auto) 0.0 0.0-7.0 % Basophils (%) (Auto) 0.2 0.0-2.0 % Neutrophils # (Auto) 10.0 H 1.6-8.6 10 ^3/uL Lymphocytes # (Auto) 0.9 0.4-5.4 10 ^3/uL Monocytes # (Auto) 0.7 0-1.3 10 ^3/uL Eosinophils # (Auto) 0 0-0.8 10 ^3/uL Basophils # (Auto) 0 0-0.2 10 ^3/uL Nucleated Red Blood Cells 0.2 % Prothrombin Time 15.1 H 9.3-11.8 sec Prothrombin Time INR 1.48 H 0.9-1.15 Sodium Level 134 L 136-145 mmol/L Potassium Level 4.2 3.5-5.1 mmol/L Chloride Level 91 L 98-107 mmol/L Carbon Dioxide Level 25 20-31 mmol/L Anion Gap 18 H 5-15 Blood Urea Nitrogen 78 H 9-23 mg/dL Creatinine 7.58 H 0.550-1.02 mg/dL Glomerular Filtration Rate Calc 5 >90 mL/min BUN/Creatinine Ratio 10.3 10.0-20.0 Serum Glucose 120 H 74-106 mg/dL Hemoglobin A1c 7.1 H <5.7 % A1C Lactic Acid Level 4.3 *H 0.4-2.0 mmol/L Calcium Level 8.2 L 8.7-10.4 mg/dL Total Bilirubin 1.2 H 0.2-1.0 mg/dL Aspartate Amino Transferase (AST) 59 H 13-40 U/L Alanine Aminotransferase (ALT) 20 7-40 U/L Alkaline Phosphatase 218 H 46-116 U/L Troponin I High Sensitivity 170 *H </=34 ng/L B-Type Natriuretic Peptide > 5000.00 0-100 pg/mL Total Protein 6.8 5.7-8.2 g/dL Albumin 3.8 3.2-4.8 g/dL Plasma/Serum Blood Alcohol < 3.0 <10 mg/dL Current Medications Medications (Trade) Dose Ordered Sig/Camacho Route Start Time Stop Time Status Last Admin Propofol 100 ml @ 1.485 mls/ hr Q24H IV 07/20/24 21:00 07/20/24 21:00 Rocuronium Gleason 80 mg ONCE ONCE IV 07/20/24 20:52 07/20/24 21:00 DC 07/20/24 21:08 Etomidate 20 mg ONCE ONCE IV 07/20/24 20:52 07/20/24 21:00 DC 07/20/24 21:08 Sodium Chloride 500 ml @ 500 mls/hr Q1H ONCE IV 07/20/24 21:15 07/21/24 00:53 DC 07/20/24 21:15 Ceftriaxone Sodium 50 ml @ 100 mls/hr ONCE ONCE IV 07/20/24 23:15 07/20/24 23:44 DC 07/20/24 23:15 Vancomycin HCl 250 ml @ 250 mls/hr ONCE ONCE IV 07/20/24 23:15 07/21/24 00:14 DC 07/20/24 23:15 CHEST RADIOGRAPH Indication: Post intubation, hypoxia Technique: Single frontal view of the chest was obtained Comparison: XY CHEST PORTABLE on DOS: 05/03/24, XY CHEST PORTABLE on DOS: 05/01/24, XY CHEST PORTABLE on DOS: 04/29/24 Findings/ IMPRESSION: Endotracheal tube projects 3 cm superior to the rosanna. Enteric tube coursing below the GE junction without visualization of side port catheter tip. Moderate cardiomegaly. Prominent interstitial markings bilaterally. Small bilateral pleural effusions with superimposed infection not excluded no pneumothorax. Time of 1ST Reevaluation: 20:58 Reevaluation 1ST: Unchanged Patient Education/Counseling: Pt Unresponsive Family Education/Counseling: No Family Present Departure 1 Departure Time of Disposition: 23:04 Impression: Primary Impression: Hypoxic respiratory failure Additional Impressions: Pneumonia Sepsis End stage renal disease on dialysis Elevated troponin Pericardial effusion Disposition: ADMITTED INPATIENT Admit to: ICU Condition: Critical Comments 69-year-old female presents to the emergency department unresponsive, in respiratory failure, agonal breathing. She was being ventilated via BVM by EMS on arrival. She was intubated immediately for oxygenation, ventilation and airway protection. Antibiotics and gentle IV hydration given history of end- stage renal disease on dialysis. Suspect pneumonia. EKG shows sinus rhythm with no ST changes. Troponin elevated, likely secondary to hypoxia . Patient admitted for further treatment, evaluation and monitoring. Extensive evaluation was performed in attempt to identify or rule out: (See differential diagnosis section) The following tests were ordered, and results were reviewed by me: (See diagnostic results section) The following test were independently interpreted by me: EKG, chest x-ray, CT head-no acute disease I reviewed and agreed with the following test results read by other providers: Chest x-ray I reviewed the following notes from the pt's past medical encounters: (None available at this time) Additional information was gathered from interviewing the following independent historians: EMS personnel Discussion of management or test interpretation with external physician/other qualified health client care representative: N/A Addressed an acute or chronic illness that poses a threat to life or bodily function: Hypoxic respiratory failure, sepsis Decision regarding hospitalization or escalation of hospital level of care: Risk and benefits of admission for further treatment of patient's condition was considered. Due to patient's current clinical condition, high risk of decline and poor outcome if discharged and need for further inpatient management and monitoring, patient will be admitted to the hospital. Drug therapy requiring intensive monitoring for toxicity: IV etomidate, IV rocuronium, IV propofol Parenteral controlled substances: N/A Decision regarding elective major surgery with identified patient or procedure risk factors: N/A Decision regarding emergency major surgery: N/A Decision not to resuscitate or to de-escalate care because of poor prognosis: N/A Diagnosis or treatment significantly limited by social determinants of health: N/A Critical Care Note Critical Care Time?: Yes (45 min-critical care time only) Critical care comment: Hypoxia, respiratory failure Due to a high probability of clinically significant, life threatening deterioration, the patient required my highest level of preparedness to intervene emergently and I personally spent this critical care time directly and personally managing the patient. This critical care time included obtaining a history; examining the patient; pulse oximetry; ordering and review of studies; arranging urgent treatment with development of a management plan; evaluation of patient's response to treatment; frequent reassessment; and, discussions with other providers. This critical care time was performed to assess and manage the high probability of imminent, life-threatening deterioration that could result in multi-organ failure. It was exclusive of separately billable procedures and treating other patients and teaching time. Please see my other sections and the rest of the note for further information on patient assessment and treatment. Stability Stability form required: No Heart Score Heart Score: Heart Score Response (Comments) Value History Moderate Suspicious [address]-Deviation 2 Age >65 2 Risk Factors >3 or Hx ASHD 2 Troponin Normal limit 0 Total 7 I personally scribed for PAOLA RAMIREZ MD ([email or web address]) on 07/20/24 at 21:06. Electronically submitted by Yimi Samano ([email or web address]). I personally scribed for PAOLA RAMIREZ MD ([email or web address]) on 07/20/24 at 21:10. Electronically submitted by Yimi Samano ([email or web address]). I personally scribed for PAOLA RAMIREZ MD ([email or web address]) on 07/20/24 at 21:50. Electronically submitted by Yimi Samano ([email or web address]). I personally scribed for PAOLA RAMIREZ MD ([email or web address]) on 07/21/24 at 00:18. Electronically submitted by Yimi Samano ([email or web address]). I personally scribed for PAOLA RAMIREZ MD ([email or web address]) on 07/21/24 at 00:22. Electronically submitted by Yimi Samano ([email or web address]). PAOLA RAMIREZ MD Jul 20, 2024 21:06
[2024-07-20] MEDS: ETOMIDATE (2MG/ML) 20ML VIAL IV ONE (21:08)
[2024-07-20] MEDS: ROCURONIUM 10MG/ML 10ML VIAL IV ONE (21:08)
[2024-07-20] MEDS ORDERED: NOREPINEPHRINE 8 MG/250ML KIT 250 ML IV SCH (21:15)
[2024-07-20] MEDS: SODIUM CHLORIDE 0.9% 500 ML IV ONE (21:15)
[2024-07-20 21:32] LABS: Basophils # (auto) 0 10 ^3/uL (0-0.2); Basophils % (auto) 0.2 % (0.0-2.0); Eosinophils # (auto) 0 10 ^3/uL (0-0.8); Hematocrit 40.4 % (36.0-46.0); Hemoglobin 12.8 g/dL (12.2-16.2); Lymphocytes # (auto) 0.9 10 ^3/uL (0.4-5.4); Lymphocytes % (auto) 7.7 % (10.0-50.0); Mean Corpuscular Hgb Conc. 31.6 g/dL (32.0-36.0); Mean Corpuscular Volume 101.1 fL (80.0-100.0); Monocytes # (auto) 0.7 10 ^3/uL (0-1.3); Monocytes % (auto) 6.4 % (0.0-12.0); Neutrophils % (auto) 85.7 % (37.0-80.0); Nucleated Red Blood Cells % 0.2 %; Platelet Count (auto) 225 10^3/uL (140-450); Red Cell Distribution Width 14.9 % (11.8-14.3); White Blood Cell 11.6 10^3/uL (4.4-10.8)
--- NOTE | 2024-07-20 21:34 | DVH ---
CHEST RADIOGRAPH Indication: Post intubation, hypoxia Technique: Single frontal view of the chest was obtained Comparison: XY CHEST PORTABLE on DOS: 05/03/24, XY CHEST PORTABLE on DOS: 05/01/24, XY CHEST PORTABLE on DOS: 04/29/24 Findings/ IMPRESSION: Endotracheal tube projects 3 cm superior to the rosanna. Enteric tube coursing below the GE junction w ithout visualization of side port catheter tip. Moderate cardiomegaly. Prominent interstitial marking s bilaterally. Small bilateral pleural effusions with superimposed infection not excluded no pneumoth orax.
[2024-07-20 21:35] VITALS: PULSE 104; RESP 14; O2SAT 97
[2024-07-20 21:41] LABS: Alanine Aminotransferase 20 U/L (7-40); Anion Gap 18 (5-15); BUN/Creatinine Ratio 10.3 (10.0-20.0); Carbon Dioxide 25 mmol/L (20-31); Potassium 4.2 mmol/L (3.5-5.1); Total Protein 6.8 g/dL (5.7-8.2)
[2024-07-20 21:42] LABS: Albumin 3.8 g/dL (3.2-4.8); Bilirubin, Total 1.2 mg/dL (0.2-1.0)
[2024-07-20 21:49] LABS: Blood Urea Nitrogen 78 mg/dL (9-23); Chloride 91 mmol/L (98-107); Glucose 120 mg/dL (74-106); Sodium 134 mmol/L (136-145)
[2024-07-20 21:50] LABS: Alkaline Phosphatase 218 U/L (46-116); Aspartate Aminotransferase 59 U/L (13-40); Calcium 8.2 mg/dL (8.7-10.4)
[2024-07-20 21:53] LABS: INR 1.48 (0.9-1.15); Prothrombin Time 15.1 sec (9.3-11.8)
[2024-07-20 22:11] VITALS: BP 143/65; PULSE 102; RESP 16; O2SAT 100
--- NOTE | 2024-07-20 22:25 | DVH ---
CT HEAD WITHOUT CONTRAST INDICATION: ALOC COMPARISON: None TECHNIQUE: CT of the head without intravenous contrast. RADIATION DOSE: CTDIvol: mGy, DLP: mGy*cm FINDINGS: There is no evidence of intracranial hemorrhage, infarct, extra-axial collection, mass effect, midli ne shift, herniation or hydrocephalus. The ventricles, sulci and cisterns are normal. The maurer-white differentiation is normal. Considerable vascular calcifications noted presumably related to DM / CKD. Mild fluid/mucosal thickening in left ethmoid sinus, minimal fluid/mucosal thickening in sphenoid sin us. Fluid in nasopharynx. Nonspecific bilateral mastoid effusions. Soft tissues and osseous structure s are unremarkable. IMPRESSION: No acute intracranial abnormality.
[2024-07-20 22:41] LABS: Lactic Acid w/Reflex 4.3 mmol/L (0.4-2.0)
[2024-07-20 23:06] LABS: COVID19 ANTIGEN SOFIA FIA NEGATIVE (NEGATIVE); Rapid Influenza A Negative (Negative); Rapid Influenza B Negative (Negative)
[2024-07-20] MEDS: cefTRIAXone 1GM/50ML D5W 50 ML IV ONE (23:15)
[2024-07-20] MEDS: VANCOMYCIN 1GM/250ML KIT 250 ML IV ONE (23:15)
[2024-07-20 23:27] LABS: Base Excess -4.2 mmol/L (-2.0-3.0)
--- NOTE | 2024-07-20 23:27 | DVH ---
CHEST RADIOGRAPH Indication: Confirm Central Line Placement Technique: Single frontal view of the chest was obtained Comparison: XY CHEST XRAY 1 VIEW on DOS: 07/20/24, XY CHEST PORTABLE on DOS: 05/03/24, XY CHEST PORTAB LE on DOS: 05/01/24. Lung windows from prior CT of the abdomen and pelvis of April 2024 FINDINGS: Patient has cardiomegaly and a large pericardial effusion. This is also appreciated in prior study an d I would recommend follow-up cardiac echo to eliminate the possibility cardiac tamponade. There is a large consolidate in the right lower lobe. Endotracheal tube is below the clavicles just a taylor the aortic arch. Patient has by lateral external pacer paddles. Central venous line is superior vena cava a nasogastric tube is in the stomach. There is pulmonary vascular congestion. IMPRESSION: 1. Patient has a pericardial effusion which could cause tamponade I recommend cardiac echo. There is a large consolidate involving the right lower lobe and there is pulmonary vascular congestion as well
--- NOTE | 2024-07-20 23:39 | DVHHPRES ---
History of Present Illness Resident Creating Document: LYDIA GALLARDO RESDIENT History of Present Illness Gama Em is a 69-year-old female patient who presents to ER via EMS due to dyspnea in functional class III-IV which started three days before her admission, associated with productive cough with yellow phlegm, nausea, vom iting, diarrhea and abdominal pain. Upon arrival ER patient presented altered level of consciousness, became unresponsive with a pulse, Mateo score of 3/15, required emergent endotracheal intubation. Could not obtain review of systems due to clinical status. Obtained past history from EMR Past medical history: Hypertension, dyslipidemia, diabetes, COPD with no home oxygen requirement, ESRD with requirement of the hemodialysis 3 times per week, [place], chronic anemia, Surgical history: AV fistula of left arm, EVAR to thoracic/abdominal aorta (evidence in CT scan) Family history: Unobtainable Social history: Lives with caregiver. Denies current tobacco, alcohol and other drug abuse Allergies: Hydrocodone, morphine Home medication: Carvedilol, spironolactone, vitamin-D, captopril, yeast Patient seen and examined at bedside. Currently ICU status due to requirement of mechanical ventilation, sedated. No review of systems could be obtained Past Medical History Per HPI Past Surgical History Per HPI Family History Per HPI Past Social History Per HPI Review of Systems Allergies: Coded Allergies: Hydrocodone (Verified Allergy, Severe, 04/22/24) Morphine (Verified Allergy, Severe, 04/22/24) Medications Current Medications Medications Dose Ordered Sig/Camacho Route Start Time Stop Time Status Last Admin Dose Admin Propofol 100 ml @ 1.485 mls/ hr Q24H IV 07/20/24 21:00 07/20/24 21:00 1.485 MLS/HR Norepinephrine Bitartrate 250 ml @ 3.75 mls/hr Q24H IV 07/20/24 21:15 Exam Vital Signs Vital Signs Date Time Temp Pulse Resp B/P (MAP) Pulse Ox O2 Delivery O2 Flow Rate FiO2 07/20/24 21:08 178/76 07/20/24 20:57 106 07/20/24 20:45 100.8 39 77 100.8 Exam Patient lying in bed, under sedoanalgesia due to mechanical ventilation General: RASS -4, afebrile, mucosae are moist Cardiovascular: Normal S1 and S2. No murmurs, gallops or rubs Respiratory: Mechanically assisted ventilation, equal bilateral airway entree. Bilateral rhonchus predominantly on basis, rest of lung auscultation is clear Abdomen: Soft, nontender, no organomegaly, normal bowel sounds MSK/skin: Mobilization of limbs cannot be evaluated. Skin is dry and warm. Deformity on left toes. Presents AV fistula on left arm. Neurological: Orientation cannot be assessed. No apparent motor no sensitive deficits. Pupils are isocoric and reactive Labs/Xrays Labs Test 07/20/24 23:21 07/20/24 23:18 07/20/24 22:09 07/20/24 21:36 Range/Units Blood Gas Specimen Type Arterial Blood Gas Sample Site Right brachial Blood Gas Patient Temperature 37.0 Arterial Blood Date Drawn [id number] Arterial Blood pH 7.317 L 7.350-7.450 Arterial Blood Partial Pressure CO2 43.6 32.0-45.0 mmHg Arterial Blood Partial Pressure O2 83.2 83.0-108.0 mmHg Arterial Blood HCO3 21.8 21.0-28.0 mmol/L Arterial Blood Oxygen Saturation 94.9 94.0-98.0 % Arterial Blood Base Excess -4.2 L -2.0-3.0 mmol/L Arterial Blood Oxyhemoglobin 93.9 L 94.0-98.0 % Arterial Blood Carboxyhemoglobin 0.7 0.5-1.5 % Arterial Blood Methemoglobin 0.4 0.0-1.5 % Lan Test Yes Blood Gas Total Hemoglobin 12.40 12.0-16.0 g/dL Blood Gas Set Respiration Rate 16.0 Blood Gas Modality Vent - ac Blood Gas Spontaneous Rate 16 FiO2 % 100.0 Blood Gas Tidal Volume 500.0 Blood Gas Inspiratory Pressure 44.0 Blood Gas PEEP or CPAP 8.0 Specimen Drawn By Blood Gas Notified Whom andrea Ramirez md Blood Gas Notified Time [id number] Blood Gas Notified By Troponin I High Sensitivity 146 *H </=34 ng/L Influenza Type A Antigen Negative Negative Influenza Type B Antigen Negative Negative SARS-CoV-2 Antigen (Rapid) Negative NEGATIVE Test 07/20/24 20:50 Range/Units White Blood Count 11.6 H 4.4-10.8 10^3/uL Red Blood Count 4.00 4.0-5.20 10^6/uL Hemoglobin 12.8 12.2-16.2 g/dL Hematocrit 40.4 36.0-46.0 % Mean Corpuscular Volume 101.1 H 80.0-100.0 fL Mean Corpuscular Hemoglobin 32.0 28.0-32.0 pg Mean Corpuscular Hemoglobin Concent 31.6 L 32.0-36.0 g/dL Red Cell Distribution Width 14.9 H 11.8-14.3 % Platelet Count 225 140-450 10^3/uL Mean Platelet Volume 10.1 6.9-10.8 fL Neutrophils (%) (Auto) 85.7 H 37.0-80.0 % Lymphocytes (%) (Auto) 7.7 L 10.0-50.0 % Monocytes (%) (Auto) 6.4 0.0-12.0 % Eosinophils (%) (Auto) 0.0 0.0-7.0 % Basophils (%) (Auto) 0.2 0.0-2.0 % Neutrophils # (Auto) 10.0 H 1.6-8.6 10 ^3/uL Lymphocytes # (Auto) 0.9 0.4-5.4 10 ^3/uL Monocytes # (Auto) 0.7 0-1.3 10 ^3/uL Eosinophils # (Auto) 0 0-0.8 10 ^3/uL Basophils # (Auto) 0 0-0.2 10 ^3/uL Nucleated Red Blood Cells 0.2 % Prothrombin Time 15.1 H 9.3-11.8 sec Prothrombin Time INR 1.48 H 0.9-1.15 Sodium Level 134 L 136-145 mmol/L Potassium Level 4.2 3.5-5.1 mmol/L Chloride Level 91 L 98-107 mmol/L Carbon Dioxide Level 25 20-31 mmol/L Anion Gap 18 H 5-15 Blood Urea Nitrogen 78 H 9-23 mg/dL Creatinine 7.58 H 0.550-1.02 mg/dL Glomerular Filtration Rate Calc 5 >90 mL/min BUN/Creatinine Ratio 10.3 10.0-20.0 Serum Glucose 120 H 74-106 mg/dL Calcium Level 8.2 L 8.7-10.4 mg/dL Total Bilirubin 1.2 H 0.2-1.0 mg/dL Aspartate Amino Transferase (AST) 59 H 13-40 U/L Alanine Aminotransferase (ALT) 20 7-40 U/L Alkaline Phosphatase 218 H 46-116 U/L B-Type Natriuretic Peptide > 5000.00 0-100 pg/mL Total Protein 6.8 5.7-8.2 g/dL Albumin 3.8 3.2-4.8 g/dL Plasma/Serum Blood Alcohol < 3.0 <10 mg/dL Assessment/Plan Assessment/Plan Assessment: Metabolic encephalopathy secondary to sepsis Sepsis probably secondary to pneumonia versus cholangitis Acute respiratory failure secondary to pneumonia (aspiration versus community- acquired Gram-positive/Gram-negative) Cardiorenal syndrome type 3 ESRD on hemodialysis Pericardial effusion Anasarca NSTEMI probably type 2 due to above Transaminitis Normocytic anemia Diabetes - uncontrolled (hemoglobin A1c 7.1%) Hypertension Dyslipidemia Status post EVAR to thoracic and abdominal aorta Plan: Currently under mechanical ventilation (VCV VT: 450, RR: 18, PEEP: 5, FIO2: 100%), we will titrate down on FiO2 with ABG. On bronchodilators, evaluate IV steroids Currently under empiric IV antibiotic (vancomycin and Zosyn) Consulted Nephrology for hemodialysis Consulted cardiology, ordered echocardiogram to evaluate pericardial effusion Ordered pancultures (blood, urine, sputum and MRSA). Influenza and COVID are negative Central line was placed in left internal jugular Goals of care discussed with family (daughter) for over 18 minutes: Full code status Discussed plan with Dr. Galan, family and nurses: Continue with mechanical ventilation and sedation, currently ICU status. Under empiric IV antibiotic, bronchodilators, awaiting results of culture, currently with no IV vasopressor requirement. Patient has poor prognosis, have informed family Critical care time spent including discussion with nursing and family: 62 minutes Plan discussed with: Patient, Other (Nurses) Date of Service: Jul 20, 2024 Billing Provider: FRAN GALAN MD Common Visit Codes: 10711-AYSLBXA INP/OBS CARE (HIGH) Secondary Visit Codes: 10962-FSWQOBHD CARE PLAN 30 MINUTES LYDIA GALLARDO RESDIENT Jul 20, 2024 23:39 NILAS DEMPSEY RESIDENT Jul 21, 2024 03:18 FRAN GALAN MD Jul 21, 2024 11:41
[2024-07-20 23:58] LABS: LDL Cholesterol 75 mg/dL (< 100)
[2024-07-20 23:59] LABS: Cholesterol 167 mg/dL (< 200)
[2024-07-21] VITALS (100 sets, daily range): BP systolic 82–178; BP diastolic 41–76; PULSE 90–136; RESP 14–65; TEMP 93.4–100.8; O2SAT 87–99
[2024-07-21] MEDS: PANTOPRAZOLE 40 MG/10 ML VIAL INJ IV ONE
[2024-07-21 00:03] LABS: HDL Cholesterol 27 mg/dL (40-59); Triglycerides 232 mg/dL (< 150)
[2024-07-21] MEDS: CEFEPIME 1GM/ 50ML 50 ML IV ONE (00:15)
--- NOTE | 2024-07-21 01:41 | DVH ---
Exam: CT CT CHEST/AB/PL W CON- IV ONLY History: Hypoxia, VOMITING Comparison Study: None available at time of dictation. Technique: Multidetector spiral CT of the chest, abdomen and pelvis was performed from lower neck to pubic symphysis. Intravenous contrast was administered during this examination. Portal venous imag ing was obtained. Axial, coronal and sagittal multiplanar reformats were performed by the technologis t on a separate workstation. Radiation Dose : 1. Chest/Abdomen/Pelvis: CTDIvol 6 mGy, DLP 545 mGy*cm. Findings: Endotracheal tube in proper position located superior to the rosanna. Enteric tube terminating within the stomach. Left IJ CVC with tip terminating near the cavoatrial junction Lower neck: 5 mm calcification in the left thyroid lobe. Lungs: Large atelectasis involving the right middle lobe. Ground-glass opacity seen throughout the le ft lung and right lower lobe. Scattered consolidations in the right upper lobe. Heart/Vascular Structures: Severe calcification of the coronary vessels. Mild cardiomegaly. Vascular stent involving the descending thoracic aorta near the diaphragm. [id number] pericardial effusi on Lymph Nodes: No adenopathy Pleura: Small right-sided pleural effusion. Liver: Mottled appearance of the liver. Gallbladder and Biliary Tree: Moderate periportal edema. Spleen: Unremarkable Pancreas: The pancreas is normal in appearance without focal lesions or abnormal enhancement. Adrenal Glands: Unremarkable Kidneys: Kidneys demonstrate normal symmetric enhancement without focal lesions, calculi or hydroneph rosis. Bladder: Bladder is decompressed with a Armando catheter and cannot be adequately assessed. Bowel: The stomach is grossly normal in appearance. Small bowel and colon are normal in caliber and d istribution. The appendix is not visualized; however, no secondary findings of acute appendicitis id entified. Ascites: Mild diffuse ascites Lymphadenopathy: No mesenteric, retroperitoneal or periportal lymphadenopathy. Abdominal Wall and Mesentery: Unremarkable. Vasculature: The visualized abdominal aorta is normal in size and caliber. Abdominal and pelvic vess els demonstrate normal enhancement. Pelvic Organs: Unremarkable Musculoskeletal: No aggressive focal bony lesions, acute fractures or dislocation. IMPRESSION: Findings consistent with fluid overload state which include cardiomegaly, pericardial effusion, pleur al effusions, ascites, and anasarca. Scattered consolidations throughout the bilateral lungs Moderate periportal edema which has a broad differential that includes viral hepatitis or acute chola ngitis. Ancillary findings as described above
[2024-07-21] MEDS ORDERED: VANCOMYCIN PER PHARMACY 0 MG IV SCH (02:15)
[2024-07-21] MEDS: MIDAZOLAM DRIP 50 mg/50mL 50 ML IV SCH (04:32)
[2024-07-21] MEDS: fentaNYL Drip 2500mCg/250mlNS 250 ML IV SCH (04:37)
[2024-07-21 04:48] LABS: Basophils # (auto) 0 10 ^3/uL (0-0.2); Basophils % (auto) 0.4 % (0.0-2.0); Eosinophils # (auto) 0 10 ^3/uL (0-0.8); Eosinophils % (auto) 0.1 % (0.0-7.0); Hematocrit 35.2 % (36.0-46.0); Hemoglobin 11.8 g/dL (12.2-16.2); Lymphocytes # (auto) 0.4 10 ^3/uL (0.4-5.4); Mean Corpuscular Hemoglobin 33.3 pg (28.0-32.0); Mean Corpuscular Hgb Conc. 33.4 g/dL (32.0-36.0); Mean Corpuscular Volume 99.8 fL (80.0-100.0); Monocytes # (auto) 0.3 10 ^3/uL (0-1.3); Monocytes % (auto) 3.6 % (0.0-12.0); Neutrophils # (auto) 7.4 10 ^3/uL (1.6-8.6); Neutrophils % (auto) 90.9 % (37.0-80.0); Nucleated Red Blood Cells % 0.1 %; Platelet Count (auto) 165 10^3/uL (140-450); Red Blood Cells 3.53 10^6/uL (4.0-5.20); Red Cell Distribution Width 14.6 % (11.8-14.3); White Blood Cell 8.2 10^3/uL (4.4-10.8)
[2024-07-21 05:12] LABS: Alanine Aminotransferase 13 U/L (7-40); Anion Gap 17 (5-15); BUN/Creatinine Ratio 10.2 (10.0-20.0); Bilirubin, Total 0.9 mg/dL (0.2-1.0); Carbon Dioxide 22 mmol/L (20-31); Potassium 3.7 mmol/L (3.5-5.1)
[2024-07-21 05:13] LABS: Albumin 2.9 g/dL (3.2-4.8); Alkaline Phosphatase 153 U/L (46-116); Aspartate Aminotransferase 46 U/L (13-40); Blood Urea Nitrogen 74 mg/dL (9-23); Calcium 7.8 mg/dL (8.7-10.4); Chloride 93 mmol/L (98-107); Glucose 120 mg/dL (74-106); Sodium 132 mmol/L (136-145); Total Protein 5.3 g/dL (5.7-8.2)
--- NOTE | 2024-07-21 05:36 | DVH ---
INDICATION: Rule out cholangitis TECHNIQUE: Multiple real-time sonographic images were obtained of the right upper quadrant. COMPARISON: None FINDINGS: The liver demonstrates homogeneous echotexture without focal mass lesions. The liver measu res 17.3 cm. There is no intrahepatic or extrahepatic ductal dilatation. The common duct measures 0.4 cm. The gallbladder is without evidence of stone or sludge. The gallbladder wall measures 0.7 cm and is t hickened. The right kidney measures 8.8 cm. The right kidney is normal in contour, size, and shape. The echogen icity is normal. There is no hydronephrosis. The pancreas is not well visualized due to overlying bowel gas. Trace ascites and trace bilateral pleural effusions. IMPRESSION: Hepatomegaly. No gallstones or sludge. Nonspecific thickened/ edematous appearance to the gallbladder wall. May be related to 3rd spacing.
[2024-07-21 06:38] LABS: Base Excess -3.9 mmol/L (-2.0-3.0)
[2024-07-21] MEDS: NOREPINEPHRINE 8 MG/250ML KIT 250 ML IV SCH (08:51)
[2024-07-21] MEDS: PANTOPRAZOLE 40 MG/10 ML VIAL INJ IV SCH (09:01)
[2024-07-21] MEDS: PIPERACILLIN-TAZOB 2.25GM 50 ML IV SCH ×2 (09:01→21:33)
[2024-07-21] MEDS: HEPARIN SODIUM (PORCINE) 5000 UNITS/ML 1ML VIAL SC SCH (09:01)
--- NOTE | 2024-07-21 10:39 | DVH ---
CLINICAL HISTORY: Acute loss of consciousness. TECHNIQUE: Duplex carotid Doppler ultrasound was performed. Grayscale, color-flow, and spectral wavef orm analysis was performed. COMPARISON: None FINDINGS: Examination is limited due to limited mobility of the patient. There is also a central venous cathete r in place in the left side of the neck left carotid artery is not able to be evaluated. The right co mmon carotid artery is not visualized. There is calcified plaque of the right carotid bulb. Proximal ICA peak systolic velocity measures 25 centimeter/second with end-diastolic velocity of 6 centimeter/ second. Right external carotid artery peak systolic velocity is 109 centimeter/second. Unable to obta in ICA/CCA ratio on the right due to nonvisualized common carotid artery. IMPRESSION: Very limited examination. Unable to evaluate the left carotid system and unable to visualize the rig ht common carotid artery. The degree of carotid stenosis can not be determined on this examination. F indings in the visualized portions of the right carotid system as described above.
--- NOTE | 2024-07-21 11:04 | DVHINCON2 ---
Date Seen: Jul 21, 2024 Referring Physician Dahiana Reason for Consultation Pericardial Effusion History of Present Illness 69-year-old female with PMH for COPD, HTN, HLD, ESRD on HD, MO, anemia, pericardial effusion 04/27/2024 presents to the hospital with dyspnea and altered level consciousness. Apparently patient became unresponsive and was emergently intubated. Currently on vent, information gathering mainly from chart review. CTA chest abdomen showed mild cardiomegaly, thoracic aortic stent, [id number] pericardial effusion. Right-sided pleural effusion. Troponin mildly elevated trending 170, 146, 141. CT head negative. EKG reviewed and shows sinus tachycardia at 106 beats per minute, RBBB, nonspecific T-wave abnormality. Past Medical History As stated above. Past Surgical History EVAR Family History: Family history: Diabetes mellitus G8 FATHER Family History No pertinent family cardiac history on review Social History No history of tobacco, alcohol, or illicit drug use on review. Allergies: Coded Allergies: Hydrocodone (Verified Allergy, Severe, 04/22/24) Morphine (Verified Allergy, Severe, 04/22/24) Home Meds Active Scripts Yeast (S. Boulardii)(S. Cerevi (Florastor) 250 Mg Cap, 250 MG PO BID for 30 Days, #60 CAP Prov:FRAN SAMPSON MD 05/04/24 Carvedilol (COREG) 3.125 Mg Tab, 3.125 MG PO Q12HR for 60 Days, #120 TAB Prov:TASNEEM DE JESUS MD 01/08/17 Spironolactone (Aldactone) 25 Mg Tab, 25 MG PO DAILY, #30 TAB Prov:TASNEEM DE JESUS MD 01/08/17 Cholecalciferol (Vitamin D3) 1,000 Unit Tab, 2000 UNIT PO DAILY, #30 TAB Prov:TASNEEM DE JESUS MD 01/08/17 Captopril (Captopril) 12.5 Mg Tab, 12.5 MG PO Q8HR, #90 TAB Prov:TASNEEM DE JESUS MD 01/08/17 Current Medications Current Medications Medications (Trade) Dose Ordered Sig/Camacho Route PRN Reason Start Time Stop Time Status Last Admin Propofol 100 ml @ 1.485 mls/ hr Q24H IV 07/20/24 21:00 07/21/24 02:22 DC 07/20/24 21:00 Norepinephrine Bitartrate 250 ml @ 3.75 mls/hr Q24H IV 07/20/24 21:15 07/20/24 21:32 DC Norepinephrine Bitartrate 250 ml @ 3.75 mls/hr Q24H IV 07/20/24 21:15 07/21/24 08:51 Pantoprazole Sodium (Protonix) 40 mg DAILY IV 07/21/24 10:00 07/21/24 09:01 Heparin Sodium (Porcine) 5,000 units Q12HR SC 07/21/24 10:00 07/21/24 09:01 Cefepime HCl 50 ml @ 12.5 mls/hr DAILY IV 07/22/24 10:00 07/21/24 02:22 DC Vancomycin HCl 0 ml @ 0 mls/hr UD IV 07/21/24 02:15 Piperacillin Sod/ Tazobactam Sod 50 ml @ 12.5 mls/hr Q12HR IV 07/21/24 10:00 07/21/24 09:01 Midazolam HCl 50 ml @ 1 mls/hr Q24H IV 07/21/24 03:45 07/21/24 04:32 Fentanyl Citrate 250 ml @ 2.5 mls/hr Q24H IV 07/21/24 03:45 07/21/24 04:37 Review of Systems Deferred, intubated and sedated Vital Signs Vital Signs Date Time Temp Pulse Resp B/P (MAP) Pulse Ox O2 Delivery O2 Flow Rate FiO2 07/21/24 10:20 103 16 95/50 (65) 97 45 07/21/24 10:15 100.0 212.0 07/21/24 09:52 Mechanical Ventilator+ Physical Exam General appearance: Ill-appearing, in no acute distress. HEENT: Exam shows: Normocephalic, atraumatic, PERRLA, EOMI Neck: Supple, no bruits Chest: Equal chest excursion bilaterally. Breath sounds rales/rhonchi. Heart: Rhythm: Regular rate; no murmur or gallop Abdomen: Exam shows: Soft, nontender, nondistended Musculoskeletal: No clubbing, no cyanosis, trace lower extremity edema Dermatology: Skin warm, moist. Neurological: Exam shows: Sedated Available prior records, labs, EKG, rhythm strips reviewed and interpreted Labs/Diagnostic Data Labs Test 07/21/24 06:17 07/21/24 04:20 07/21/24 01:15 07/21/24 00:16 Range/Units Blood Gas Specimen Type Arterial Blood Gas Sample Site Left brachial Blood Gas Patient Temperature 37.0 Arterial Blood Date Drawn [id number] Arterial Blood pH 7.361 7.350-7.450 Arterial Blood Partial Pressure CO2 38.0 32.0-45.0 mmHg Arterial Blood Partial Pressure O2 69.7 L 83.0-108.0 mmHg Arterial Blood HCO3 21.0 21.0-28.0 mmol/L Arterial Blood Oxygen Saturation 91.9 L 94.0-98.0 % Arterial Blood Base Excess -3.9 L -2.0-3.0 mmol/L Arterial Blood Oxyhemoglobin 90.8 L 94.0-98.0 % Arterial Blood Carboxyhemoglobin 0.6 0.5-1.5 % Arterial Blood Methemoglobin 0.6 0.0-1.5 % Lan Test N/a Blood Gas Total Hemoglobin 12.10 12.0-16.0 g/dL Blood Gas Set Respiration Rate 16.0 Blood Gas Modality Vent - ac FiO2 % 45.0 Blood Gas Tidal Volume 500.0 Blood Gas PEEP or CPAP 8.0 White Blood Count 8.2 # 4.4-10.8 10^3/uL Red Blood Count 3.53 L 4.0-5.20 10^6/uL Hemoglobin 11.8 L 12.2-16.2 g/dL Hematocrit 35.2 #L 36.0-46.0 % Mean Corpuscular Volume 99.8 80.0-100.0 fL Mean Corpuscular Hemoglobin 33.3 H 28.0-32.0 pg Mean Corpuscular Hemoglobin Concent 33.4 32.0-36.0 g/dL Red Cell Distribution Width 14.6 H 11.8-14.3 % Platelet Count 165 140-450 10^3/uL Mean Platelet Volume 10.4 6.9-10.8 fL Neutrophils (%) (Auto) 90.9 H 37.0-80.0 % Lymphocytes (%) (Auto) 5.0 L 10.0-50.0 % Monocytes (%) (Auto) 3.6 0.0-12.0 % Eosinophils (%) (Auto) 0.1 0.0-7.0 % Basophils (%) (Auto) 0.4 0.0-2.0 % Neutrophils # (Auto) 7.4 1.6-8.6 10 ^3/uL Lymphocytes # (Auto) 0.4 0.4-5.4 10 ^3/uL Monocytes # (Auto) 0.3 0-1.3 10 ^3/uL Eosinophils # (Auto) 0 0-0.8 10 ^3/uL Basophils # (Auto) 0 0-0.2 10 ^3/uL Nucleated Red Blood Cells 0.1 % Sodium Level 132 L 136-145 mmol/L Potassium Level 3.7 3.5-5.1 mmol/L Chloride Level 93 L 98-107 mmol/L Carbon Dioxide Level 22 20-31 mmol/L Anion Gap 17 H 5-15 Blood Urea Nitrogen 74 H 9-23 mg/dL Creatinine 7.28 H 0.550-1.02 mg/dL Glomerular Filtration Rate Calc 6 >90 mL/min BUN/Creatinine Ratio 10.2 10.0-20.0 Serum Glucose 120 H 74-106 mg/dL Calcium Level 7.8 L 8.7-10.4 mg/dL Total Bilirubin 0.9 0.2-1.0 mg/dL Aspartate Amino Transferase (AST) 46 H 13-40 U/L Alanine Aminotransferase (ALT) 13 7-40 U/L Alkaline Phosphatase 153 H 46-116 U/L Total Protein 5.3 L 5.7-8.2 g/dL Albumin 2.9 L 3.2-4.8 g/dL Random Vancomycin Level 28.1 H 5-10 ug/mL Lactic Acid Level 2.0 0.4-2.0 mmol/L Troponin I High Sensitivity 141 *H </=34 ng/L Test 07/20/24 23:21 07/20/24 22:09 07/20/24 21:36 07/20/24 20:50 Range/Units Blood Gas Spontaneous Rate 16 Blood Gas Inspiratory Pressure 44.0 Specimen Drawn By Blood Gas Notified Whom andrea Ramirez md Blood Gas Notified Time [id number] Blood Gas Notified By Triglycerides Level 232 H < 150 mg/dL Cholesterol Level 167 < 200 mg/dL LDL Cholesterol 75 < 100 mg/dL HDL Cholesterol 27 L 40-59 mg/dL Influenza Type A Antigen Negative Negative Influenza Type B Antigen Negative Negative SARS-CoV-2 Antigen (Rapid) Negative NEGATIVE Prothrombin Time 15.1 H 9.3-11.8 sec Prothrombin Time INR 1.48 H 0.9-1.15 Hemoglobin A1c 7.1 H <5.7 % A1C B-Type Natriuretic Peptide > 5000.00 0-100 pg/mL Plasma/Serum Blood Alcohol < 3.0 <10 mg/dL Microbiology Date/Time Source Procedure Growth Status 07/20/24 20:50 Blood Blood Culture - Preliminary Resulted Assessment NSTEMI likely type 2 MO Acute on chronic HFpEF Acute hypoxic respiratory failure Pericardial effusion, recurrent Sepsis, suspected pneumonia HTN HLD Status post EVAR to thoracic / abdominal aorta ESRD on HD HLD Plan/Recommendation * Follow-up echo. Continue aggressive diuresis with HD as tolerated. * Likely demand ischemia in setting of CHF exacerbation. Troponins trending stable. EKG negative for significant ST and T-wave abnormalities. Moderate coronary calcifications on CT angio review. * On mechanical ventilator support, FiO2 45%. * Vasopressor support as needed. * Continued on IV antibiotics. Case Discussed with Dr Choi. Continue supportive care at this time. Follow up echo. Patient ischemic workup once as for her status improves and patient more euvolemic. Inpatient versus outpatient. Critical care, time spent: 40 minutes This medical document was created using an electronic medical record system with voice recognition software and computerized dictation system. Although this document has been carefully reviewed, there might still be some phonetic and typographical errors. Occasional wrong-word or ``sound-alike substitutions may have occurred due to the inherent limitations of voice recognition software. These areas are purely typographical due to imperfections of the software programs and do not reflect any compromise in the patient's medical care. Please read the chart carefully and recognize, using context, where these substitutions have occurred. Thank you for allowing me to participate in the management of this patient. The treatment plan was discussed with and agreed upon by patient/family including requesting consultants and ordering of imaging/procedures. Plan discussed with: Other (RN at bedside) NYHA Physical activity limitations: Class4(Severe)discomfort Date of Service: Jul 21, 2024 Billing Provider: JORGE FERNANDEZ Cardiology Common Codes: 59090-[id number] INP/OBS CARE (High), 26487-[id number] CARE 30-74 MIN JORGE FERNANDEZ Jul 21, 2024 11:04
[2024-07-21 13:39] LABS: Amphetamine Screen, Urine Neg (NEGATIVE); Barbiturate Scree,Urine Neg (NEGATIVE); Benzodiazephine Screen, Urine Neg (NEGATIVE); Cannabinoid Screen, Urine Neg (NEGATIVE); Cocaine Screen, Urine Neg (NEGATIVE); Opiate Scree,Urine Neg (NEGATIVE); Phencyclidine Screen, Urine Neg (NEGATIVE)
[2024-07-21 13:42] LABS: Urine Bacteria FEW /hpf (None Seen); Urine Blood 2+ /uL (Negative); Urine Clarity Turbid (Clear); Urine Color Yellow (Yellow); Urine Mucus FEW (None Seen); Urine Protein, UAD 3+ (Negative); Urine Specific Gravity 1.018 (1.001-1.035); Urine Squamous Epithelial Cell FEW /hpf (<5); Urine Urobilinogen Normal (Negative); Urine WBC 51 /HPF (0-5)
--- NOTE | 2024-07-21 16:35 | DVHPN2 ---
Subjective Assuming the care of the patient was from today onwards who was under the care of the house with the hospitalist see detailed sign out obtained. Patient was remains intubated and sedated physically in ER room 5. Changes from previous H/P or p: No Changes Objective Vitals Vital Signs Date Time Temp Pulse Resp B/P (MAP) Pulse Ox O2 Delivery O2 Flow Rate FiO2 07/21/24 16:10 103 16 121/52 (75) 97 40 07/21/24 15:56 Mechanical Ventilator+ 07/21/24 14:00 99.3 210.7 Intake/Output Intake and Output 07/21/24 07:00 Intake Total 510.5 ml Balance 510.5 ml Intake IV Total 510.5 ml Exam HEENT pupils are reactive Neck is supple CV is S1-S2 regular rate and rhythm Respiratory diminished breath sound bilateral lung bases GI posterior bowel sound Extremity trace edema [employer] intubated and sedated Medications Current Medications Medications Dose Ordered Sig/Camacho Route Start Time Stop Time Status Last Admin Dose Admin Norepinephrine Bitartrate 250 ml @ 3.75 mls/hr Q24H IV 07/20/24 21:15 07/21/24 08:51 3.75 MLS/HR Pantoprazole Sodium 40 mg DAILY IV 07/21/24 10:00 07/21/24 09:01 40 MG Heparin Sodium (Porcine) 5,000 units Q12HR SC 07/21/24 10:00 07/21/24 09:01 5,000 UNITS Vancomycin HCl 0 ml @ 0 mls/hr UD IV 07/21/24 02:15 Midazolam HCl 50 ml @ 1 mls/hr Q24H IV 07/21/24 03:45 07/21/24 04:32 1 MLS/HR Fentanyl Citrate 250 ml @ 2.5 mls/hr Q24H IV 07/21/24 03:45 07/21/24 04:37 2.5 MLS/HR Diagnostic Test (Pha) 1 strip Q6HR 07/21/24 18:00 Insulin Human Regular Q6HR SC 07/21/24 18:00 Dextrose 50 ml UD PRN IV 07/21/24 15:00 Piperacillin Sod/ Tazobactam Sod 50 ml @ 12.5 mls/hr Q8HR IV 07/21/24 22:00 UNV Laboratory Results Laboratory Tests 07/21/24 04:20 Chemistry Test 07/20/24 20:50 07/21/24 04:20 Albumin 3.8 g/dL (3.2-4.8) 2.9 g/dL (3.2-4.8) L Calcium Level 8.2 mg/dL (8.7-10.4) L 7.8 mg/dL (8.7-10.4) L Total Protein 6.8 g/dL (5.7-8.2) 5.3 g/dL (5.7-8.2) L Coagulation Test 07/20/24 20:50 Prothrombin Time 15.1 sec (9.3-11.8) H Prothrombin Time INR 1.48 (0.9-1.15) H Lipid panel Test 07/20/24 22:09 Cholesterol Level 167 mg/dL (< 200) HDL Cholesterol 27 mg/dL (40-59) L Triglycerides Level 232 mg/dL (< 150) H Cardiac Markers Test 07/20/24 20:50 B-Type Natriuretic Peptide > 5000.00 pg/mL (0-100) LFT Test 07/20/24 20:50 07/21/24 04:20 Alanine Aminotransferase (ALT) 20 U/L (7-40) 13 U/L (7-40) Alkaline Phosphatase 218 U/L (46-116) H 153 U/L (46-116) H Aspartate Amino Transferase (AST) 59 U/L (13-40) H 46 U/L (13-40) H Total Bilirubin 1.2 mg/dL (0.2-1.0) H 0.9 mg/dL (0.2-1.0) HgA1c, TSH Test 07/20/24 20:50 Hemoglobin A1c 7.1 % A1C (<5.7) H Urinalysis Test 07/21/24 12:40 Urine Color Yellow (Yellow) Urine Clarity Turbid (Clear) H Urine pH 7.0 (5.0-9.0) Urine Specific [place] 1.018 (1.001-1.035) Urine Protein 3+ (Negative) H Urine Ketones Trace (Negative) Urine Blood 2+ /uL (Negative) H Urine Nitrite Negative (Negative) Urine Bilirubin Negative (Negative) Urine Urobilinogen Normal mg/dL (Negative) Urine Leukocyte Esterase Negative /uL (Negative) Urine RBC 7 /hpf (0 - 4) Urine Microscopic WBC 51 /HPF (0-5) H Urine Squamous Epithelial Cells Few /hpf (<5) Urine Bacteria Few /hpf (None Seen) H Urine Mucus Few (None Seen) Urine Glucose 3+ mg/dL (Normal) H Blood Gas Results Test 07/20/24 23:21 07/21/24 06:17 Arterial Blood pH 7.317 (7.350-7.450) 7.361 (7.350-7.450) FiO2 % 100.0 45.0 Microbiology Microbiology Date/Time Source Procedure Growth Status 07/20/24 20:50 Blood Blood Culture - Preliminary Resulted Assessment/Plan Assessment/Plan 72-year-old female with a known history of diabetes mellitus type 2, hypertension, dyslipidemia, end-stage renal disease on hemodialysis, COPD, status post EVAR of thoracic and abdominal aorta presented to the hospital with increasing shortness of breath and altered mental status home to have unresponsiveness in the ER requiring intubation and ventilator support. 1. Acute encephalopathy suspected metabolic/septic encephalopathy 2. Sepsis suspected pneumonia 3. Community-acquired pneumonia 4. End-stage renal disease on hemodialysis 5. Acute CHF exacerbation with systolic dysfunction with fluid overload 6. Right-sided pleural effusion 7. Pericardial effusion 8. Elevated troponin suspect demand ischemia/NSTEMI type 2 secondary to acute CHF exacerbation 9. Lactic acidosis 10. Diabetes mellitus type 2 11. Gram-negative bacteremia -continue vent support, daily ABG, chest x-ray, continue IV antibiotics, Nephrology, cardiology follow up -patient remains critical prognosis remains guarded. Plan discussed with: Other My Orders Orders - BECKY PENNINGTON MD Procedure Category Date Status Time Comprehensive LAB 07/22/24 Verified Metabolic Panel 04:00 Magnesium LAB 07/22/24 Verified 04:00 Chest Portable XY 07/22/24 Logged 04:00 Apply Z-Guard SUMMER 07/21/24 In Process 11:53 Glucose Blood PHA 07/21/24 In Process (Accu-Chek Comfort 18:00 Insulin R (Human) PHA 07/21/24 In Process (Insulin R) 18:00 Dextrose 50% Syringe PHA 07/21/24 In Process 15:00 Piperacillin-Tazob PHA 07/21/24 Logged 2.25gm (Zosyn 2.25gm) 22:00 Date of Service: Jul 21, 2024 Billing Provider: BECKY PENNINGTON MD Common Visit Codes: [id number] INP/OBS CARE(HIGH) BECKY PENNINGTON MD Jul 21, 2024 16:35
[2024-07-21] MEDS: ACCU-CHEK COMFORT CURVE STRIP VI SCH (17:17)
[2024-07-21] MEDS: InsuLIN REG 1unit/0.01ml Soln (100units/ml) SC SCH (17:17)
[2024-07-21] MEDS: DEXTROSE (50%) 50ML SYRG IV PRN (19:04)
--- NOTE | 2024-07-21 19:34 | DVHINCON2 ---
Date of service: Jul 21, [address] Talbot Reason for Consultation ESRD and dialysis management History of Present Illness Gama Em is a 69-year-old F with Past Medical History pertinent for COPD, Hypertension, Hyperlipidemia, ESRD on HD, [place], Anemia and Pericardial effusion 04/27/2024 who presented to the hospital with c/o shortness of breath and altered level consciousness. Patient became unresponsive and was emergently intubated. History obtained per chart review. Patient is currently on ventilator support. EKG showed sinus tachycardia at 106 beats per minute, RBBB, nonspecific T-wave abnormality. CT Angio Chest Abdomen showed mild cardiomegaly, thoracic aortic stent, [id number] pericardial effusion; right-sided pleural effusion. CT Head is negative. Labs are remarkable for low Na 132. Cl 93. Anion Gap 17. Creatinine 7.28 with BUN of 74. Calcium 7.8. Albumin 2.9. Total protein 5.3. Latest BS's are low 63 and 66. Allergies: Coded Allergies: Hydrocodone (Verified Allergy, Severe, 04/22/24) Morphine (Verified Allergy, Severe, 04/22/24) Home Meds Active Scripts Yeast (S. Boulardii)(S. Cerevi (Florastor) 250 Mg Cap, 250 MG PO BID for 30 Days, #60 CAP Prov:FRAN SAMPSON MD 05/04/24 Carvedilol (COREG) 3.125 Mg Tab, 3.125 MG PO Q12HR for 60 Days, #120 TAB Prov:TASNEEM DE JESUS MD 01/08/17 Spironolactone (Aldactone) 25 Mg Tab, 25 MG PO DAILY, #30 TAB Prov:TASNEEM DE JESUS MD 01/08/17 Cholecalciferol (Vitamin D3) 1,000 Unit Tab, 2000 UNIT PO DAILY, #30 TAB Prov:TASNEEM DE JESUS MD 01/08/17 Captopril (Captopril) 12.5 Mg Tab, 12.5 MG PO Q8HR, #90 TAB Prov:TASNEEM DE JESUS MD 01/08/17 Current Medications Current Medications Medications (Trade) Dose Ordered Sig/Camacho Route PRN Reason Start Time Stop Time Status Last Admin Propofol 100 ml @ 1.485 mls/ hr Q24H IV 07/20/24 21:00 07/21/24 02:22 DC 07/20/24 21:00 Norepinephrine Bitartrate 250 ml @ 3.75 mls/hr Q24H IV 07/20/24 21:15 07/20/24 21:32 DC Norepinephrine Bitartrate 250 ml @ 3.75 mls/hr Q24H IV 07/20/24 21:15 07/21/24 08:51 Pantoprazole Sodium (Protonix) 40 mg DAILY IV 07/21/24 10:00 07/21/24 09:01 Heparin Sodium (Porcine) 5,000 units Q12HR SC 07/21/24 10:00 07/21/24 09:01 Cefepime HCl 50 ml @ 12.5 mls/hr DAILY IV 07/22/24 10:00 07/21/24 02:22 DC Vancomycin HCl 0 ml @ 0 mls/hr UD IV 07/21/24 02:15 Piperacillin Sod/ Tazobactam Sod 50 ml @ 12.5 mls/hr Q12HR IV 07/21/24 10:00 07/21/24 15:35 DC 07/21/24 09:01 Midazolam HCl 50 ml @ 1 mls/hr Q24H IV 07/21/24 03:45 07/21/24 17:02 Fentanyl Citrate 250 ml @ 2.5 mls/hr Q24H IV 07/21/24 03:45 07/21/24 04:37 Diagnostic Test (Pha) (Accu-Chek Comfort Curve T) 1 strip Q6HR 07/21/24 18:00 07/21/24 17:17 Insulin Human Regular (InsuLIN R) Q6HR SC 07/21/24 18:00 Dextrose 50 ml UD PRN IV Blood Sugar LESS THAN 60 07/21/24 15:00 07/21/24 19:04 Piperacillin Sod/ Tazobactam Sod 50 ml @ 12.5 mls/hr Q8HR IV 07/21/24 22:00 Dextrose 1,000 ml @ 25 mls/hr Q24H IV 07/21/24 19:15 Family History: Family history: Diabetes mellitus G8 FATHER Review of Systems ROS unable to be performed. Patient is intubated and sedated. H&P Exam Vital Signs/I&O Vital Sign Date Time Temp Pulse Resp B/P (MAP) Pulse Ox O2 Delivery O2 Flow Rate FiO2 07/21/24 20:00 99.7 105 16 99/53 (68) 96 211.5 07/21/24 20:00 Mechanical Ventilator+ 40 40 Intake and Output 07/20/24 07/21/24 19:00 07:00 Intake Total 510.5 ml Balance 510.5 ml Intake IV Total 510.5 ml Physical Exam Vitals and nursing notes reviewed. General appearance: Ill-appearing, in no acute distress. HEENT: Normocephalic, atraumatic, PERRLA Neck: Supple, no bruits Chest: Intubated. Breath sounds rales/rhonchi. Heart: Regular rate; no murmur or gallop Abdomen: Soft, nontender, nondistended Musculoskeletal: No clubbing, no cyanosis, trace lower extremity edema Skin: Warm, moist. Neurological: Sedated Labs/Diagnostic Data Labs/Diagnostic Data Laboratory Tests Test 07/21/24 17:56 07/21/24 17:15 07/21/24 12:40 07/21/24 06:17 Range/Units POC Glucose 66 L 63 L 70-106 mg/dl Urine Color Yellow Yellow Urine Clarity Turbid H Clear Urine pH 7.0 5.0-9.0 Urine Specific [place] 1.018 1.001-1.035 Urine Protein 3+ H Negative Urine Ketones Trace Negative Urine Blood 2+ H Negative /uL Urine Nitrite Negative Negative Urine Bilirubin Negative Negative Urine Urobilinogen Normal Negative mg/dL Urine Leukocyte Esterase Negative Negative /uL Urine RBC 7 0 - 4 /hpf Urine Microscopic WBC 51 H 0-5 /HPF Urine Squamous Epithelial Cells Few <5 /hpf Urine Bacteria Few H None Seen /hpf Urine Mucus Few None Seen Urine Glucose 3+ H Normal mg/dL Urine Opiates Screen Neg NEGATIVE Urine Fentanyl Screen Neg NEGATIVE Urine Barbiturates Screen Neg NEGATIVE Urine Phencyclidine Screen Neg NEGATIVE Urine Amphetamines Screen Neg NEGATIVE Urine Benzodiazepines Screen Neg NEGATIVE Urine Cocaine Screen Neg NEGATIVE Urine Cannabinoids Screen Neg NEGATIVE Blood Gas Specimen Type Arterial Blood Gas Sample Site Left brachial Blood Gas Patient Temperature 37.0 Arterial Blood Date Drawn [id number] Arterial Blood pH 7.361 7.350-7.450 Arterial Blood Partial Pressure CO2 38.0 32.0-45.0 mmHg Arterial Blood Partial Pressure O2 69.7 L 83.0-108.0 mmHg Arterial Blood HCO3 21.0 21.0-28.0 mmol/L Arterial Blood Oxygen Saturation 91.9 L 94.0-98.0 % Arterial Blood Base Excess -3.9 L -2.0-3.0 mmol/L Arterial Blood Oxyhemoglobin 90.8 L 94.0-98.0 % Arterial Blood Carboxyhemoglobin 0.6 0.5-1.5 % Arterial Blood Methemoglobin 0.6 0.0-1.5 % Lan Test N/a Blood Gas Total Hemoglobin 12.10 12.0-16.0 g/dL Blood Gas Set Respiration Rate 16.0 Blood Gas Modality Vent - ac FiO2 % 45.0 Blood Gas Tidal Volume 500.0 Blood Gas PEEP or CPAP 8.0 Test 07/21/24 04:20 07/21/24 01:15 07/21/24 00:16 07/20/24 23:21 Range/Units White Blood Count 8.2 # 4.4-10.8 10^3/uL Red Blood Count 3.53 L 4.0-5.20 10^6/uL Hemoglobin 11.8 L 12.2-16.2 g/dL Hematocrit 35.2 #L 36.0-46.0 % Mean Corpuscular Volume 99.8 80.0-100.0 fL Mean Corpuscular Hemoglobin 33.3 H 28.0-32.0 pg Mean Corpuscular Hemoglobin Concent 33.4 32.0-36.0 g/dL Red Cell Distribution Width 14.6 H 11.8-14.3 % Platelet Count 165 140-450 10^3/uL Mean Platelet Volume 10.4 6.9-10.8 fL Neutrophils (%) (Auto) 90.9 H 37.0-80.0 % Lymphocytes (%) (Auto) 5.0 L 10.0-50.0 % Monocytes (%) (Auto) 3.6 0.0-12.0 % Eosinophils (%) (Auto) 0.1 0.0-7.0 % Basophils (%) (Auto) 0.4 0.0-2.0 % Neutrophils # (Auto) 7.4 1.6-8.6 10 ^3/uL Lymphocytes # (Auto) 0.4 0.4-5.4 10 ^3/uL Monocytes # (Auto) 0.3 0-1.3 10 ^3/uL Eosinophils # (Auto) 0 0-0.8 10 ^3/uL Basophils # (Auto) 0 0-0.2 10 ^3/uL Nucleated Red Blood Cells 0.1 % Sodium Level 132 L 136-145 mmol/L Potassium Level 3.7 3.5-5.1 mmol/L Chloride Level 93 L 98-107 mmol/L Carbon Dioxide Level 22 20-31 mmol/L Anion Gap 17 H 5-15 Blood Urea Nitrogen 74 H 9-23 mg/dL Creatinine 7.28 H 0.550-1.02 mg/dL Glomerular Filtration Rate Calc 6 >90 mL/min BUN/Creatinine Ratio 10.2 10.0-20.0 Serum Glucose 120 H 74-106 mg/dL Calcium Level 7.8 L 8.7-10.4 mg/dL Total Bilirubin 0.9 0.2-1.0 mg/dL Aspartate Amino Transferase (AST) 46 H 13-40 U/L Alanine Aminotransferase (ALT) 13 7-40 U/L Alkaline Phosphatase 153 H 46-116 U/L Total Protein 5.3 L 5.7-8.2 g/dL Albumin 2.9 L 3.2-4.8 g/dL Random Vancomycin Level 28.1 H 5-10 ug/mL Lactic Acid Level 2.0 0.4-2.0 mmol/L Troponin I High Sensitivity 141 *H </=34 ng/L Blood Gas Specimen Type Arterial Blood Gas Sample Site Right brachial Blood Gas Patient Temperature 37.0 Arterial Blood Date Drawn [id number] Arterial Blood pH 7.317 L 7.350-7.450 Arterial Blood Partial Pressure CO2 43.6 32.0-45.0 mmHg Arterial Blood Partial Pressure O2 83.2 83.0-108.0 mmHg Arterial Blood HCO3 21.8 21.0-28.0 mmol/L Arterial Blood Oxygen Saturation 94.9 94.0-98.0 % Arterial Blood Base Excess -4.2 L -2.0-3.0 mmol/L Arterial Blood Oxyhemoglobin 93.9 L 94.0-98.0 % Arterial Blood Carboxyhemoglobin 0.7 0.5-1.5 % Arterial Blood Methemoglobin 0.4 0.0-1.5 % Lan Test Yes Blood Gas Total Hemoglobin 12.40 12.0-16.0 g/dL Blood Gas Set Respiration Rate 16.0 Blood Gas Modality Vent - ac Blood Gas Spontaneous Rate 16 FiO2 % 100.0 Blood Gas Tidal Volume 500.0 Blood Gas Inspiratory Pressure 44.0 Blood Gas PEEP or CPAP 8.0 Specimen Drawn By Blood Gas Notified Whom andrea Ramirez md Blood Gas Notified Time [id number] Blood Gas Notified By Test 07/20/24 23:18 07/20/24 22:09 07/20/24 21:36 07/20/24 20:50 Range/Units Lactic Acid Level 3.6 *H 4.3 *H 0.4-2.0 mmol/L Troponin I High Sensitivity 146 *H 170 *H </=34 ng/L Triglycerides Level 232 H < 150 mg/dL Cholesterol Level 167 < 200 mg/dL LDL Cholesterol 75 < 100 mg/dL HDL Cholesterol 27 L 40-59 mg/dL Influenza Type A Antigen Negative Negative Influenza Type B Antigen Negative Negative SARS-CoV-2 Antigen (Rapid) Negative NEGATIVE White Blood Count 11.6 H 4.4-10.8 10^3/uL Red Blood Count 4.00 4.0-5.20 10^6/uL Hemoglobin 12.8 12.2-16.2 g/dL Hematocrit 40.4 36.0-46.0 % Mean Corpuscular Volume 101.1 H 80.0-100.0 fL Mean Corpuscular Hemoglobin 32.0 28.0-32.0 pg Mean Corpuscular Hemoglobin Concent 31.6 L 32.0-36.0 g/dL Red Cell Distribution Width 14.9 H 11.8-14.3 % Platelet Count 225 140-450 10^3/uL Mean Platelet Volume 10.1 6.9-10.8 fL Neutrophils (%) (Auto) 85.7 H 37.0-80.0 % Lymphocytes (%) (Auto) 7.7 L 10.0-50.0 % Monocytes (%) (Auto) 6.4 0.0-12.0 % Eosinophils (%) (Auto) 0.0 0.0-7.0 % Basophils (%) (Auto) 0.2 0.0-2.0 % Neutrophils # (Auto) 10.0 H 1.6-8.6 10 ^3/uL Lymphocytes # (Auto) 0.9 0.4-5.4 10 ^3/uL Monocytes # (Auto) 0.7 0-1.3 10 ^3/uL Eosinophils # (Auto) 0 0-0.8 10 ^3/uL Basophils # (Auto) 0 0-0.2 10 ^3/uL Nucleated Red Blood Cells 0.2 % Prothrombin Time 15.1 H 9.3-11.8 sec Prothrombin Time INR 1.48 H 0.9-1.15 Sodium Level 134 L 136-145 mmol/L Potassium Level 4.2 3.5-5.1 mmol/L Chloride Level 91 L 98-107 mmol/L Carbon Dioxide Level 25 20-31 mmol/L Anion Gap 18 H 5-15 Blood Urea Nitrogen 78 H 9-23 mg/dL Creatinine 7.58 H 0.550-1.02 mg/dL Glomerular Filtration Rate Calc 5 >90 mL/min BUN/Creatinine Ratio 10.3 10.0-20.0 Serum Glucose 120 H 74-106 mg/dL Hemoglobin A1c 7.1 H <5.7 % A1C Calcium Level 8.2 L 8.7-10.4 mg/dL Total Bilirubin 1.2 H 0.2-1.0 mg/dL Aspartate Amino Transferase (AST) 59 H 13-40 U/L Alanine Aminotransferase (ALT) 20 7-40 U/L Alkaline Phosphatase 218 H 46-116 U/L B-Type Natriuretic Peptide > 5000.00 0-100 pg/mL Total Protein 6.8 5.7-8.2 g/dL Albumin 3.8 3.2-4.8 g/dL Plasma/Serum Blood Alcohol < 3.0 <10 mg/dL Assessment Metabolic encephalopathy secondary to sepsis Acute respiratory failure Cardiorenal syndrome type 3 ESRD on hemodialysis Pericardial effusion Anasarca NSTEMI Transaminitis Normocytic anemia Diabetes - uncontrolled (hemoglobin A1c 7.1%) Hypertension Dyslipidemia Plan/Recommendation Agreement with your ongoing assessment and plan of care. Cardiology and vent/respiratory care management deferred. Vasopressors for hemodynamic support prn. Schedule dialysis 07/22/24. Empirical IV antibiotics with Vancomycin and Zosyn. F/u cultures. Influenza and Covid negative. Dextrose 10% 1,000mL at 25 mL/hr. GI prophylaxis. Central line placed in left internal jugular. Additional plan as per the hospital course. Plan discussed with: Other (RN) JOSE LUIS SMITH DO Jul 21, 2024 19:34
[2024-07-21] MEDS: DEXTROSE 10% 1,000 ML IV SCH (20:30)
--- NOTE | 2024-07-21 21:05 | DVHINCON2 ---
Date of service: Jul 21, [address] Christopher Reason for Consultation Acute respiratory failure History of Present Illness HPI pt is a 69 yo female with a h/o ESRD/HD, COPD, CHF, presented with cough, mucus and shortness of breath. Pt had Gi symptoms for few days, abd pain, nausea, diarrhea. In ER intubated for airway protection. Initial CT head unremarkable. Home Meds Active Scripts Yeast (S. Boulardii)(S. Cerevi (Florastor) 250 Mg Cap, 250 MG PO BID for 30 Days, #60 CAP Prov:FRAN SAMPSON MD 05/04/24 Carvedilol (COREG) 3.125 Mg Tab, 3.125 MG PO Q12HR for 60 Days, #120 TAB Prov:TASNEEM DE JESUS MD 01/08/17 Spironolactone (Aldactone) 25 Mg Tab, 25 MG PO DAILY, #30 TAB Prov:TASNEEM DE JESUS MD 01/08/17 Cholecalciferol (Vitamin D3) 1,000 Unit Tab, 2000 UNIT PO DAILY, #30 TAB Prov:TASNEEM DE JESUS MD 01/08/17 Captopril (Captopril) 12.5 Mg Tab, 12.5 MG PO Q8HR, #90 TAB Prov:TASNEEM DE JESUS MD 01/08/17 Past Medical History Patient Family History: Family history: Diabetes mellitus G8 FATHER H&P Exam Vital Signs Vital Signs Date Time Temp Pulse Resp B/P (MAP) Pulse Ox O2 Delivery O2 Flow Rate FiO2 07/21/24 20:44 102/54 07/21/24 20:00 99.7 105 16 96 211.5 07/21/24 20:00 Mechanical Ventilator+ 40 40 Labs/Xrays Labs Test 07/21/24 17:56 07/21/24 12:40 07/21/24 06:17 07/21/24 04:20 Range/Units POC Glucose 66 L 70-106 mg/dl Urine Color Yellow Yellow Urine Clarity Turbid H Clear Urine pH 7.0 5.0-9.0 Urine Specific [place] 1.018 1.001-1.035 Urine Protein 3+ H Negative Urine Ketones Trace Negative Urine Blood 2+ H Negative /uL Urine Nitrite Negative Negative Urine Bilirubin Negative Negative Urine Urobilinogen Normal Negative mg/dL Urine Leukocyte Esterase Negative Negative /uL Urine RBC 7 0 - 4 /hpf Urine Microscopic WBC 51 H 0-5 /HPF Urine Squamous Epithelial Cells Few <5 /hpf Urine Bacteria Few H None Seen /hpf Urine Mucus Few None Seen Urine Glucose 3+ H Normal mg/dL Urine Opiates Screen Neg NEGATIVE Urine Fentanyl Screen Neg NEGATIVE Urine Barbiturates Screen Neg NEGATIVE Urine Phencyclidine Screen Neg NEGATIVE Urine Amphetamines Screen Neg NEGATIVE Urine Benzodiazepines Screen Neg NEGATIVE Urine Cocaine Screen Neg NEGATIVE Urine Cannabinoids Screen Neg NEGATIVE Blood Gas Specimen Type Arterial Blood Gas Sample Site Left brachial Blood Gas Patient Temperature 37.0 Arterial Blood Date Drawn [id number] Arterial Blood pH 7.361 7.350-7.450 Arterial Blood Partial Pressure CO2 38.0 32.0-45.0 mmHg Arterial Blood Partial Pressure O2 69.7 L 83.0-108.0 mmHg Arterial Blood HCO3 21.0 21.0-28.0 mmol/L Arterial Blood Oxygen Saturation 91.9 L 94.0-98.0 % Arterial Blood Base Excess -3.9 L -2.0-3.0 mmol/L Arterial Blood Oxyhemoglobin 90.8 L 94.0-98.0 % Arterial Blood Carboxyhemoglobin 0.6 0.5-1.5 % Arterial Blood Methemoglobin 0.6 0.0-1.5 % Lan Test N/a Blood Gas Total Hemoglobin 12.10 12.0-16.0 g/dL Blood Gas Set Respiration Rate 16.0 Blood Gas Modality Vent - ac FiO2 % 45.0 Blood Gas Tidal Volume 500.0 Blood Gas PEEP or CPAP 8.0 White Blood Count 8.2 # 4.4-10.8 10^3/uL Red Blood Count 3.53 L 4.0-5.20 10^6/uL Hemoglobin 11.8 L 12.2-16.2 g/dL Hematocrit 35.2 #L 36.0-46.0 % Mean Corpuscular Volume 99.8 80.0-100.0 fL Mean Corpuscular Hemoglobin 33.3 H 28.0-32.0 pg Mean Corpuscular Hemoglobin Concent 33.4 32.0-36.0 g/dL Red Cell Distribution Width 14.6 H 11.8-14.3 % Platelet Count 165 140-450 10^3/uL Mean Platelet Volume 10.4 6.9-10.8 fL Neutrophils (%) (Auto) 90.9 H 37.0-80.0 % Lymphocytes (%) (Auto) 5.0 L 10.0-50.0 % Monocytes (%) (Auto) 3.6 0.0-12.0 % Eosinophils (%) (Auto) 0.1 0.0-7.0 % Basophils (%) (Auto) 0.4 0.0-2.0 % Neutrophils # (Auto) 7.4 1.6-8.6 10 ^3/uL Lymphocytes # (Auto) 0.4 0.4-5.4 10 ^3/uL Monocytes # (Auto) 0.3 0-1.3 10 ^3/uL Eosinophils # (Auto) 0 0-0.8 10 ^3/uL Basophils # (Auto) 0 0-0.2 10 ^3/uL Nucleated Red Blood Cells 0.1 % Sodium Level 132 L 136-145 mmol/L Potassium Level 3.7 3.5-5.1 mmol/L Chloride Level 93 L 98-107 mmol/L Carbon Dioxide Level 22 20-31 mmol/L Anion Gap 17 H 5-15 Blood Urea Nitrogen 74 H 9-23 mg/dL Creatinine 7.28 H 0.550-1.02 mg/dL Glomerular Filtration Rate Calc 6 >90 mL/min BUN/Creatinine Ratio 10.2 10.0-20.0 Serum Glucose 120 H 74-106 mg/dL Calcium Level 7.8 L 8.7-10.4 mg/dL Total Bilirubin 0.9 0.2-1.0 mg/dL Aspartate Amino Transferase (AST) 46 H 13-40 U/L Alanine Aminotransferase (ALT) 13 7-40 U/L Alkaline Phosphatase 153 H 46-116 U/L Total Protein 5.3 L 5.7-8.2 g/dL Albumin 2.9 L 3.2-4.8 g/dL Random Vancomycin Level 28.1 H 5-10 ug/mL Test 07/21/24 01:15 07/21/24 00:16 07/20/24 23:21 07/20/24 22:09 Range/Units Lactic Acid Level 2.0 0.4-2.0 mmol/L Troponin I High Sensitivity 141 *H </=34 ng/L Blood Gas Spontaneous Rate 16 Blood Gas Inspiratory Pressure 44.0 Specimen Drawn By Blood Gas Notified Whom andrea Ramirez md Blood Gas Notified Time [id number] Blood Gas Notified By Triglycerides Level 232 H < 150 mg/dL Cholesterol Level 167 < 200 mg/dL LDL Cholesterol 75 < 100 mg/dL HDL Cholesterol 27 L 40-59 mg/dL Test 07/20/24 21:36 07/20/24 20:50 Range/Units Influenza Type A Antigen Negative Negative Influenza Type B Antigen Negative Negative SARS-CoV-2 Antigen (Rapid) Negative NEGATIVE Prothrombin Time 15.1 H 9.3-11.8 sec Prothrombin Time INR 1.48 H 0.9-1.15 Hemoglobin A1c 7.1 H <5.7 % A1C B-Type Natriuretic Peptide > 5000.00 0-100 pg/mL Plasma/Serum Blood Alcohol < 3.0 <10 mg/dL Microbiology Date/Time Source Procedure Growth Status 07/20/24 20:50 Blood Blood Culture - Preliminary Resulted Assessment/Plan Plan Altered MS ESRD acute hypoxemic resp failure pericardial effusion pt seen and examined in ER intubated abg 7.36/38/70 on ac volume control peep 5 Fi02 40% labs and CXR reviewed CT chest anasarca with pl and pericardial effusion cardiomegaly patchy opacities ?pneumonia management plan sedation as needed vent support daily abg's and CXR HD and fluid removal empiric abx gi and dvt proph we'll follow up on ICU crit care time 35 min Plan discussed with: Patient KIM HDZ MD Jul 21, 2024 21:05
--- NOTE | 2024-07-21 23:59 | DVHINCON2 ---
Date Seen: Jul 21, 2024 Referring Physician Dahiana Reason for Consultation Pericardial Effusion History of Present Illness This is a 69-year-old female with PMH of COPD, HTN, HLD, ESRD on HD, SD, anemia, pericardial effusion 04/27/2024 who presented to to the ED with c/o dyspnea and altered level consciousness. Apparently the patient became unresponsive and was emergently intubated. Currently on vent, information gathering mainly from chart review. CTA chest abdomen showed mild cardiomegaly, thoracic aortic stent, [id number] pericardial effusion. Right-sided pleural effusion. Troponin mildly elevated trending 170, 146, 141. CT head negative. EKG reviewed and shows sinus tachycardia at 106 beats per minute, RBBB, nonspecific T-wave abnormality. Past Medical History As stated above. Past Surgical History EVAR Family History: Family history: Diabetes mellitus G8 FATHER Allergies: Coded Allergies: Hydrocodone (Verified Allergy, Severe, 04/22/24) Morphine (Verified Allergy, Severe, 04/22/24) Home Meds Active Scripts Yeast (S. Boulardii)(S. Cerevi (Florastor) 250 Mg Cap, 250 MG PO BID for 30 Days, #60 CAP Prov:FRAN SAMPSON MD 05/04/24 Carvedilol (COREG) 3.125 Mg Tab, 3.125 MG PO Q12HR for 60 Days, #120 TAB Prov:TASNEEM DE JESUS MD 01/08/17 Spironolactone (Aldactone) 25 Mg Tab, 25 MG PO DAILY, #30 TAB Prov:TASNEEM DE JESUS MD 01/08/17 Cholecalciferol (Vitamin D3) 1,000 Unit Tab, 2000 UNIT PO DAILY, #30 TAB Prov:TASNEEM DE JESUS MD 01/08/17 Captopril (Captopril) 12.5 Mg Tab, 12.5 MG PO Q8HR, #90 TAB Prov:TASNEEM DE JESUS MD 01/08/17 Current Medications Current Medications Medications (Trade) Dose Ordered Sig/Camacho Route PRN Reason Start Time Stop Time Status Last Admin Pantoprazole Sodium (Protonix) 40 mg DAILY IV 07/21/24 10:00 07/21/24 09:01 Heparin Sodium (Porcine) 5,000 units Q12HR SC 07/21/24 10:00 07/21/24 21:32 Cefepime HCl 50 ml @ 12.5 mls/hr DAILY IV 07/22/24 10:00 07/21/24 02:22 DC Vancomycin HCl 0 ml @ 0 mls/hr UD IV 07/21/24 02:15 Piperacillin Sod/ Tazobactam Sod 50 ml @ 12.5 mls/hr Q12HR IV 07/21/24 10:00 07/21/24 15:35 DC 07/21/24 09:01 Midazolam HCl 50 ml @ 1 mls/hr Q24H IV 07/21/24 03:45 07/21/24 17:02 Fentanyl Citrate 250 ml @ 2.5 mls/hr Q24H IV 07/21/24 03:45 07/21/24 04:37 Diagnostic Test (Pha) (Accu-Chek Comfort Curve T) 1 strip Q6HR 07/21/24 18:00 07/21/24 17:17 Insulin Human Regular (InsuLIN R) Q6HR SC 07/21/24 18:00 Dextrose 50 ml UD PRN IV Blood Sugar LESS THAN 60 07/21/24 15:00 07/21/24 19:04 Piperacillin Sod/ Tazobactam Sod 50 ml @ 12.5 mls/hr Q8HR IV 07/21/24 22:00 07/21/24 21:33 Dextrose 1,000 ml @ 25 mls/hr Q24H IV 07/21/24 19:15 07/21/24 20:30 Review of Systems Review of Systems Deferred, intubated and sedated Vital Signs Vital Signs Date Time Temp Pulse Resp B/P (MAP) Pulse Ox O2 Delivery O2 Flow Rate FiO2 07/21/24 22:00 16 95 Mechanical Ventilator+ 40 40 07/21/24 22:00 105 07/21/24 22:00 98.2 113/55 (74) 208.8 Physical Exam GENERAL: Ill appearing, intubated on ventilator. LUNGS: Decreased breath sounds. CARDIOVASCULAR: Heart sounds are good. ABDOMEN: Soft. EXT: BLE edema. Labs/Diagnostic Data Labs Test 07/21/24 17:56 07/21/24 12:40 07/21/24 06:17 07/21/24 04:20 Range/Units POC Glucose 66 L 70-106 mg/dl Urine Color Yellow Yellow Urine Clarity Turbid H Clear Urine pH 7.0 5.0-9.0 Urine Specific [place] 1.018 1.001-1.035 Urine Protein 3+ H Negative Urine Ketones Trace Negative Urine Blood 2+ H Negative /uL Urine Nitrite Negative Negative Urine Bilirubin Negative Negative Urine Urobilinogen Normal Negative mg/dL Urine Leukocyte Esterase Negative Negative /uL Urine RBC 7 0 - 4 /hpf Urine Microscopic WBC 51 H 0-5 /HPF Urine Squamous Epithelial Cells Few <5 /hpf Urine Bacteria Few H None Seen /hpf Urine Mucus Few None Seen Urine Glucose 3+ H Normal mg/dL Urine Opiates Screen Neg NEGATIVE Urine Fentanyl Screen Neg NEGATIVE Urine Barbiturates Screen Neg NEGATIVE Urine Phencyclidine Screen Neg NEGATIVE Urine Amphetamines Screen Neg NEGATIVE Urine Benzodiazepines Screen Neg NEGATIVE Urine Cocaine Screen Neg NEGATIVE Urine Cannabinoids Screen Neg NEGATIVE Blood Gas Specimen Type Arterial Blood Gas Sample Site Left brachial Blood Gas Patient Temperature 37.0 Arterial Blood Date Drawn [id number] Arterial Blood pH 7.361 7.350-7.450 Arterial Blood Partial Pressure CO2 38.0 32.0-45.0 mmHg Arterial Blood Partial Pressure O2 69.7 L 83.0-108.0 mmHg Arterial Blood HCO3 21.0 21.0-28.0 mmol/L Arterial Blood Oxygen Saturation 91.9 L 94.0-98.0 % Arterial Blood Base Excess -3.9 L -2.0-3.0 mmol/L Arterial Blood Oxyhemoglobin 90.8 L 94.0-98.0 % Arterial Blood Carboxyhemoglobin 0.6 0.5-1.5 % Arterial Blood Methemoglobin 0.6 0.0-1.5 % Lan Test N/a Blood Gas Total Hemoglobin 12.10 12.0-16.0 g/dL Blood Gas Set Respiration Rate 16.0 Blood Gas Modality Vent - ac FiO2 % 45.0 Blood Gas Tidal Volume 500.0 Blood Gas PEEP or CPAP 8.0 White Blood Count 8.2 # 4.4-10.8 10^3/uL Red Blood Count 3.53 L 4.0-5.20 10^6/uL Hemoglobin 11.8 L 12.2-16.2 g/dL Hematocrit 35.2 #L 36.0-46.0 % Mean Corpuscular Volume 99.8 80.0-100.0 fL Mean Corpuscular Hemoglobin 33.3 H 28.0-32.0 pg Mean Corpuscular Hemoglobin Concent 33.4 32.0-36.0 g/dL Red Cell Distribution Width 14.6 H 11.8-14.3 % Platelet Count 165 140-450 10^3/uL Mean Platelet Volume 10.4 6.9-10.8 fL Neutrophils (%) (Auto) 90.9 H 37.0-80.0 % Lymphocytes (%) (Auto) 5.0 L 10.0-50.0 % Monocytes (%) (Auto) 3.6 0.0-12.0 % Eosinophils (%) (Auto) 0.1 0.0-7.0 % Basophils (%) (Auto) 0.4 0.0-2.0 % Neutrophils # (Auto) 7.4 1.6-8.6 10 ^3/uL Lymphocytes # (Auto) 0.4 0.4-5.4 10 ^3/uL Monocytes # (Auto) 0.3 0-1.3 10 ^3/uL Eosinophils # (Auto) 0 0-0.8 10 ^3/uL Basophils # (Auto) 0 0-0.2 10 ^3/uL Nucleated Red Blood Cells 0.1 % Sodium Level 132 L 136-145 mmol/L Potassium Level 3.7 3.5-5.1 mmol/L Chloride Level 93 L 98-107 mmol/L Carbon Dioxide Level 22 20-31 mmol/L Anion Gap 17 H 5-15 Blood Urea Nitrogen 74 H 9-23 mg/dL Creatinine 7.28 H 0.550-1.02 mg/dL Glomerular Filtration Rate Calc 6 >90 mL/min BUN/Creatinine Ratio 10.2 10.0-20.0 Serum Glucose 120 H 74-106 mg/dL Calcium Level 7.8 L 8.7-10.4 mg/dL Total Bilirubin 0.9 0.2-1.0 mg/dL Aspartate Amino Transferase (AST) 46 H 13-40 U/L Alanine Aminotransferase (ALT) 13 7-40 U/L Alkaline Phosphatase 153 H 46-116 U/L Total Protein 5.3 L 5.7-8.2 g/dL Albumin 2.9 L 3.2-4.8 g/dL Random Vancomycin Level 28.1 H 5-10 ug/mL Test 07/21/24 01:15 07/21/24 00:16 07/20/24 23:21 07/20/24 22:09 Range/Units Lactic Acid Level 2.0 0.4-2.0 mmol/L Troponin I High Sensitivity 141 *H </=34 ng/L Blood Gas Spontaneous Rate 16 Blood Gas Inspiratory Pressure 44.0 Specimen Drawn By Blood Gas Notified Whom andrea Ramirez md Blood Gas Notified Time [id number] Blood Gas Notified By Triglycerides Level 232 H < 150 mg/dL Cholesterol Level 167 < 200 mg/dL LDL Cholesterol 75 < 100 mg/dL HDL Cholesterol 27 L 40-59 mg/dL Test 07/20/24 21:36 07/20/24 20:50 Range/Units Influenza Type A Antigen Negative Negative Influenza Type B Antigen Negative Negative SARS-CoV-2 Antigen (Rapid) Negative NEGATIVE Prothrombin Time 15.1 H 9.3-11.8 sec Prothrombin Time INR 1.48 H 0.9-1.15 Hemoglobin A1c 7.1 H <5.7 % A1C B-Type Natriuretic Peptide > 5000.00 0-100 pg/mL Plasma/Serum Blood Alcohol < 3.0 <10 mg/dL Microbiology Date/Time Source Procedure Growth Status 07/20/24 20:50 Blood Blood Culture - Preliminary Resulted Assessment NSTEMI likely type 2 [place]. Acute on chronic HFpEF. Acute hypoxic respiratory failure. Pericardial effusion, recurrent. Sepsis, suspected pneumonia. HTN. HLD. 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 ESRD on HD. HLD. Plan/Recommendation I agree with your ongoing assessment and care of plan. Patient has been seen by Sharif Quintana DEPUTY K 9 on my behalf, him and I discussed the plan with the patient. Echocardiogram. Ischemic workup once as for her status improves and patient more euvolemic. Inpatient versus outpatient. Continue aggressive diuresis with HD as tolerated. Vasopressors for hemodynamic support. GI prophylactics. IV antibiotics as ordered. Additional plan as per the hospital course. Plan discussed with: Other NYHA Physical activity limitations: Class4(Severe)discomfort Date of Service: Jul 21, 2024 Billing Provider: DEWEY SMITH MD Cardiology Common Codes: [id number] INP/OBS CARE (High), [id number] CARE 30-74 MIN DEWEY SMITH MD Jul 21, 2024 22:18
[2024-07-22] VITALS (71 sets, daily range): BP systolic 85–136; BP diastolic 35–70; PULSE 83–114; RESP 12–33; TEMP 83.1–99.3; O2SAT 95–100
--- NOTE | 2024-07-22 01:30 | DVHSR ---
APPROVED REPORT EXAM: LIMITED Two-dimensional and M-mode echocardiogram with Doppler and color Doppler. Blood Pressure: 108/57 mmHg INDICATION HF? RISK FACTORS Height: 4'2", Weight: 105 Mitral Valve MitralMitral Stenosis E/A ratio0.02D MVAcm2 Other Information Quality : Technically LimitedRhythm : Technically limited study due to patient on vent, limited repeat to eval effusion. Conclusion GLOBAL PERICARDIAL EFFUSION IN RANGE OF 1.0 TO 1.5 CM IN WIDTH NO RV COLLAPSE NO EVIDENCE OF PERICARDIAL TAMPONADE DILATED ALL CARDIAC CHAMBERS AND ARE HYPOKINETIC LV EF IS 30% AND IS MODERATELY REDUCED MODERATELY DILATED RV AND IS HYPOKINETIC NORMAL VALVES
[2024-07-22 05:11] LABS: Hematocrit 35.1 % (36.0-46.0); Hemoglobin 11.5 g/dL (12.2-16.2); Mean Corpuscular Hemoglobin 32.3 pg (28.0-32.0); Mean Corpuscular Hgb Conc. 32.7 g/dL (32.0-36.0); Mean Corpuscular Volume 98.8 fL (80.0-100.0); Platelet Count (auto) 154 10^3/uL (140-450); Red Blood Cells 3.55 10^6/uL (4.0-5.20); Red Cell Distribution Width 15.2 % (11.8-14.3); White Blood Cell 17.6 10^3/uL (4.4-10.8)
[2024-07-22 05:31] LABS: Basophils % (manual) 0 (0.0-2.0); Blast Cells 0; Eosinophils % (manual) 0 (0-7); Myelocytes % 0; Promyelocytes % 0; Reactive Lymphocytes 0
[2024-07-22 05:38] LABS: Alanine Aminotransferase 18 U/L (7-40); Anion Gap 16 (5-15); Carbon Dioxide 24 mmol/L (20-31); Glucose 80 mg/dL (74-106); Magnesium 2.3 mg/dL (1.6-2.6); Potassium 4.1 mmol/L (3.5-5.1)
[2024-07-22 05:45] LABS: Albumin 2.6 g/dL (3.2-4.8); Alkaline Phosphatase 157 U/L (46-116); Aspartate Aminotransferase 73 U/L (13-40); Calcium 7.8 mg/dL (8.7-10.4); Chloride 92 mmol/L (98-107); Sodium 132 mmol/L (136-145)
[2024-07-22 05:47] LABS: Blood Urea Nitrogen 90 mg/dL (9-23)
[2024-07-22 06:29] LABS: Anisocytosis Slight; Band Neutrophils % (manual) 59; Lymphocytes % (manual) 4 (10.0-50.0); Metamyelocytes % 1; Monocytes % (manual) 2 (0-12); Platelet Estimate Adequate
--- NOTE | 2024-07-22 07:46 | DVH ---
XY CHEST PORTABLE, HISTORY: intubated COMPARISON: XY CHEST XRAY 1 VIEW on DOS: 07/20/24, XY CHEST XRAY 1 VIEW on DOS: 07/20/24, XY CHEST PORT ABLE on DOS: 05/03/24 XY CHEST XRAY 1 VIEW on DOS: 07/20/24, XY CHEST XRAY 1 VIEW on DOS: 07/20/24, XY CHEST PORTABLE on DOS: 05/03/24 TECHNICAL DATA: 1 view of the chest was obtained. FINDINGS: Lines and tubes: ET in the mid thoracic trachea, NG in the stomach. CVC is seen. Cardiomediastinal silhouette: Enlarged. Pulmonary vasculature: normal Lung expansion: normal Lung airspace: normal Lung interstitium: normal Pleura: normal Pneumothorax: no Bones: Unremarkable Other: no IMPRESSION: Stable lines and tubes. Stable lung aeration bilaterally.
[2024-07-22 08:02] LABS: Base Excess -3.3 mmol/L (-2.0-3.0)
--- NOTE | 2024-07-22 09:01 | DVHPN2 ---
Consult Progress Note Subjective Patient reports: Other (Intubated and sedated) Objective vital signs Vital Sign Date Time Temp Pulse Resp B/P (MAP) Pulse Ox O2 Delivery O2 Flow Rate FiO2 07/22/24 08:03 88 16 97/46 (63) 95 40 07/22/24 06:00 Mechanical Ventilator+ 07/22/24 01:30 99.3 210.7 Total Intake and Output 07/21/24 07/21/24 07/22/24 15:00 23:00 07:00 Intake Total 110.25 ml 140.00 ml 351.002 ml Output Total 0 ml 0 ml Balance 110.25 ml 140.00 ml 351.002 ml medications Current Medications Medications Dose Ordered Sig/Camacho Route Start Time Stop Time Status Last Admin Dose Admin Norepinephrine Bitartrate 250 ml @ 3.75 mls/hr Q24H IV 07/20/24 21:15 07/21/24 08:51 3.75 MLS/HR Pantoprazole Sodium 40 mg DAILY IV 07/21/24 10:00 07/21/24 09:01 40 MG Heparin Sodium (Porcine) 5,000 units Q12HR SC 07/21/24 10:00 07/21/24 21:32 5,000 UNITS Vancomycin HCl 0 ml @ 0 mls/hr UD IV 07/21/24 02:15 Midazolam HCl 50 ml @ 1 mls/hr Q24H IV 07/21/24 03:45 07/21/24 17:02 1 MLS/HR Fentanyl Citrate 250 ml @ 2.5 mls/hr Q24H IV 07/21/24 03:45 07/21/24 04:37 2.5 MLS/HR Diagnostic Test (Pha) 1 strip Q6HR 07/21/24 18:00 07/22/24 06:00 1 STRIP Insulin Human Regular Q6HR SC 07/21/24 18:00 Dextrose 50 ml UD PRN IV 07/21/24 15:00 07/21/24 19:04 50 ML Piperacillin Sod/ Tazobactam Sod 50 ml @ 12.5 mls/hr Q8HR IV 07/21/24 22:00 07/22/24 05:36 12.5 MLS/HR Dextrose 1,000 ml @ 25 mls/hr Q24H IV 07/21/24 19:15 07/21/24 20:30 25 MLS/HR Examination: LUNGS:Abnormal (On vent, FiO2 45%.), CVS:Normal (Telemetry reviewed consistent with sinus rhythm at 85 beats per minute, no overnight events noted.), NEURO:Abnormal (sedated) laboratory and microbiology Laboratory Tests 07/22/24 04:34 Test 07/22/24 04:34 Range/Units Serum Glucose 80 74-106 mg/dL Problem List/Assessment/Plan Problem List/Assessment/Plan Assessment NSTEMI likely type 2 [place] Acute systolic HF, new onset Acute hypoxic respiratory failure Pericardial effusion, recurrent Sepsis, suspected pneumonia HTN HLD Status post EVAR to thoracic / abdominal aorta ESRD on HD HLD Plan/Recommendation * Follow-up echo shows EF 30% with RV hypokinesis as well.. Continue aggressive diuresis with HD as tolerated. Patient will need ischemic workup in the future once stable. * Likely demand ischemia in setting of CHF. Troponins trending stable. EKG negative for significant ST and T-wave abnormalities. Moderate coronary calcifications on CT angio review. * On mechanical ventilator support, FiO2 40%. * Vasopressor support as needed. * Continued on IV antibiotics. Case Discussed with Dr Choi. Seen at bedside, FiO2 40%. Found HD today. Follow up EF now showing LV function done 30%, mildly dilated and hypokinetic RV, global [id number]-[id number] pericardial effusion no evidence of tamponade. Continue rest of HTN as tolerated. Continues to be on vasopressor support. Continue supportive care. This medical document was created using an electronic medical record system with voice recognition software and computerized dictation system. Although this document has been carefully reviewed, there might still be some phonetic and typographical errors. Occasional wrong-word or ``sound-alike substitutions may have occurred due to the inherent limitations of voice recognition software. These areas are purely typographical due to imperfections of the software programs and do not reflect any compromise in the patient's medical care. Please read the chart carefully and recognize, using context, where these substitutions have occurred. Thank you for allowing me to participate in the management of this patient. Plan discussed with: Other (Bedside RN) Dietary Evaluation Review Comments: 1.Consider EN regime nepro@20ml/hr to provide 850 Kcal 39g Protein 349ml Free Water to meet nutritional needs 2.Consider PN regime NPO > 5 days Expected Outcomes/Goals: >75% nutritional intake, labs WNL Date of Service: Jul 22, 2024 Billing Provider: JORGE FERNANDEZ Common Visit Codes: [id number] INP/OBS CARE(HIGH), [id number] CARE 30-74 MIN JORGE FERNANDEZ Jul 22, 2024 09:01
[2024-07-22] MEDS ORDERED: CEFEPIME 1GM/ 50ML 50 ML IV SCH (10:00)
--- NOTE | 2024-07-22 10:15 | DVHPN2 ---
Progress Note - Dictate Date Seen: Jul 22, 2024 Medical Necessity Reason Pt with a Central, PICC or Fol: Yes The following are medically ne: Central Line vital signs Vital Sign Date Time Temp Pulse Resp B/P (MAP) Pulse Ox O2 Delivery O2 Flow Rate FiO2 07/22/24 08:03 88 16 97/46 (63) 95 40 07/22/24 06:00 Mechanical Ventilator+ 07/22/24 01:30 99.3 210.7 Total Intake and Output 07/21/24 07/21/24 07/22/24 15:00 23:00 07:00 Intake Total 110.25 ml 140.00 ml 351.002 ml Output Total 0 ml 0 ml Balance 110.25 ml 140.00 ml 351.002 ml medications Current Medications Medications Dose Ordered Sig/Camacho Route Start Time Stop Time Status Last Admin Dose Admin Norepinephrine Bitartrate 250 ml @ 3.75 mls/hr Q24H IV 07/20/24 21:15 07/21/24 08:51 3.75 MLS/HR Pantoprazole Sodium 40 mg DAILY IV 07/21/24 10:00 07/21/24 09:01 40 MG Heparin Sodium (Porcine) 5,000 units Q12HR SC 07/21/24 10:00 07/21/24 21:32 5,000 UNITS Vancomycin HCl 0 ml @ 0 mls/hr UD IV 07/21/24 02:15 Midazolam HCl 50 ml @ 1 mls/hr Q24H IV 07/21/24 03:45 07/21/24 17:02 1 MLS/HR Fentanyl Citrate 250 ml @ 2.5 mls/hr Q24H IV 07/21/24 03:45 07/21/24 04:37 2.5 MLS/HR Diagnostic Test (Pha) 1 strip Q6HR 07/21/24 18:00 07/22/24 06:00 1 STRIP Insulin Human Regular Q6HR SC 07/21/24 18:00 Dextrose 50 ml UD PRN IV 07/21/24 15:00 07/21/24 19:04 50 ML Piperacillin Sod/ Tazobactam Sod 50 ml @ 12.5 mls/hr Q8HR IV 07/21/24 22:00 07/22/24 05:36 12.5 MLS/HR Dextrose 1,000 ml @ 25 mls/hr Q24H IV 07/21/24 19:15 07/21/24 20:30 25 MLS/HR laboratory and microbiology Laboratory Tests 07/22/24 04:34 Test 07/22/24 04:34 Range/Units Serum Glucose 80 74-106 mg/dL Assessment/Plan Altered MS ESRD acute hypoxemic resp failure pericardial effusion pt seen and examined in ER intubated versed drip levophed low rate on ac volume control peep 5 Fi02 40% abg compensated labs and CXR reviewed CT chest anasarca with pl and pericardial effusion cardiomegaly patchy opacities ?pneumonia management plan sedation as needed vent support adjust settings HD and fluid removal per nephrology empiric abx no fever nutrition glycemic control gi and dvt proph crit care time 35 min Dietary Evaluation Review Comments: 1.Consider EN regime nepro@20ml/hr to provide 850 Kcal 39g Protein 349ml Free Water to meet nutritional needs 2.Consider PN regime NPO > 5 days Expected Outcomes/Goals: >75% nutritional intake, labs WNL Plan discussed with: Patient KIM HDZ MD Jul 22, 2024 10:15
[2024-07-22] MEDS: ALBUMIN 25% 100 ML IV ONE ×2 (13:15→14:17)
--- NOTE | 2024-07-22 17:34 | DVHPN2 ---
Subjective Patient was remains intubated and sedated physically in ER room 5. Changes from previous H/P or p: No Changes Objective Vitals Vital Signs Date Time Temp Pulse Resp B/P (MAP) Pulse Ox O2 Delivery O2 Flow Rate FiO2 07/22/24 16:06 88 07/22/24 15:41 16 103/55 (71) 96 35 07/22/24 12:45 96.6 205.9 07/22/24 06:00 Mechanical Ventilator+ Intake/Output Intake and Output 07/22/24 07:00 Intake Total 601.252 ml Output Total 0 ml Balance 601.252 ml Intake IV Total 601.252 ml Output Urine Total 0 ml # Bowel Movements 2 Exam HEENT pupils are reactive Neck is supple CV is S1-S2 regular rate and rhythm Respiratory diminished breath sound bilateral lung bases GI posterior bowel sound Extremity trace edema 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 intubated and sedated Medications Current Medications Medications Dose Ordered Sig/Camacho Route Start Time Stop Time Status Last Admin Dose Admin Norepinephrine Bitartrate 250 ml @ 3.75 mls/hr Q24H IV 07/20/24 21:15 07/21/24 08:51 3.75 MLS/HR Pantoprazole Sodium 40 mg DAILY IV 07/21/24 10:00 07/22/24 11:12 40 MG Heparin Sodium (Porcine) 5,000 units Q12HR SC 07/21/24 10:00 07/22/24 11:40 5,000 UNITS Vancomycin HCl 0 ml @ 0 mls/hr UD IV 07/21/24 02:15 Midazolam HCl 50 ml @ 1 mls/hr Q24H IV 07/21/24 03:45 07/21/24 17:02 1 MLS/HR Fentanyl Citrate 250 ml @ 2.5 mls/hr Q24H IV 07/21/24 03:45 07/21/24 04:37 2.5 MLS/HR Diagnostic Test (Pha) 1 strip Q6HR 07/21/24 18:00 07/22/24 12:15 1 STRIP Insulin Human Regular Q6HR SC 07/21/24 18:00 Dextrose 50 ml UD PRN IV 07/21/24 15:00 07/21/24 19:04 50 ML Piperacillin Sod/ Tazobactam Sod 50 ml @ 12.5 mls/hr Q8HR IV 07/21/24 22:00 07/22/24 16:54 12.5 MLS/HR Dextrose 1,000 ml @ 25 mls/hr Q24H IV 07/21/24 19:15 07/21/24 20:30 25 MLS/HR Laboratory Results Laboratory Tests 07/22/24 04:34 Chemistry Test 07/22/24 04:34 Albumin 2.6 g/dL (3.2-4.8) L Calcium Level 7.8 mg/dL (8.7-10.4) L Magnesium Level 2.3 mg/dL (1.6-2.6) Total Protein 5.0 g/dL (5.7-8.2) L LFT Test 07/22/24 04:34 Alanine Aminotransferase (ALT) 18 U/L (7-40) Alkaline Phosphatase 157 U/L (46-116) H Aspartate Amino Transferase (AST) 73 U/L (13-40) H Total Bilirubin 1.0 mg/dL (0.2-1.0) Urinalysis Test 07/21/24 12:40 Urine Color Yellow (Yellow) Urine Clarity Turbid (Clear) H Urine pH 7.0 (5.0-9.0) Urine Specific [place] 1.018 (1.001-1.035) Urine Protein 3+ (Negative) H Urine Ketones Trace (Negative) Urine Blood 2+ /uL (Negative) H Urine Nitrite Negative (Negative) Urine Bilirubin Negative (Negative) Urine Urobilinogen Normal mg/dL (Negative) Urine Leukocyte Esterase Negative /uL (Negative) Urine RBC 7 /hpf (0 - 4) Urine Microscopic WBC 51 /HPF (0-5) H Urine Squamous Epithelial Cells Few /hpf (<5) Urine Bacteria Few /hpf (None Seen) H Urine Mucus Few (None Seen) Urine Glucose 3+ mg/dL (Normal) H Blood Gas Results Test 07/22/24 07:54 Arterial Blood pH 7.409 (7.350-7.450) FiO2 % 40.0 Microbiology Microbiology Date/Time Source Procedure Growth Status 07/22/24 01:47 Nose MRSA Screen - Final Complete 07/21/24 12:40 Voided Urine Urine Culture - Preliminary Resulted 07/20/24 21:29 Sputum Gram Stain - Final Resulted 07/20/24 21:29 Sputum Respiratory Culture - Preliminary Resulted 07/20/24 20:50 Blood Blood Culture - Preliminary Resulted Assessment/Plan Assessment/Plan 72-year-old female with a known history of diabetes mellitus type 2, hypertension, dyslipidemia, end-stage renal disease on hemodialysis, COPD, status post EVAR of thoracic and abdominal aorta presented to the hospital with increasing shortness of breath and altered mental status home to have unresponsiveness in the ER requiring intubation and ventilator support. 1. Acute encephalopathy suspected metabolic/septic encephalopathy 2. Sepsis suspected pneumonia 3. Community-acquired pneumonia 4. End-stage renal disease on hemodialysis, status post hemodialysis on07/22 5. Acute CHF exacerbation with systolic dysfunction with fluid overload 6. Right-sided pleural effusion 7. Pericardial effusion 8. Elevated troponin suspect demand ischemia/NSTEMI type 2 secondary to acute CHF exacerbation 9. Lactic acidosis 10. Diabetes mellitus type 2 11. Gram-negative bacteremia , repeat blood cultures already -continue vent support, daily ABG, chest x-ray, continue IV antibiotics, Nephrology, cardiology follow up -patient remains critical prognosis remains guarded. Total critical time 35 minutes. Plan discussed with: Other My Orders Orders - BECKY PENNINGTON MD Procedure Category Date Status Time *Consult CONS 07/21/24 Transmitted / 20:07 Blood Culture MATTHEW 07/22/24 In Process 15:16 B-Type Natriuretic LAB 07/23/24 Verified Peptide 04:00 Complete Blood Count LAB 07/23/24 Verified 04:00 Basic Metabolic Panel LAB 07/23/24 Verified 04:00 Date of Service: Jul 22, 2024 Billing Provider: BECKY PENNINGTON MD Common Visit Codes: [id number] INP/OBS CARE(HIGH) BECKY PENNINGTON MD Jul 22, 2024 17:34
--- NOTE | 2024-07-22 19:44 | DVHPN2 ---
Consult Progress Note Subjective Other Systems: Patient was seen and evaluated in follow up in the ICU. Patient is intubated and sedated on ventilator. 35% FiO2. WBC 17.6, BUN 90, CREATIVE MANAGER 8.21, AST 73. Chest x-ray shows stable lung aeration bilaterally. Echocardiogram now showing EF of 30%, mildly dilated and hypokinetic RV, global [id number] pericardial effusion no evidence of tamponade. Objective vital signs Vital Sign Date Time Temp Pulse Resp B/P (MAP) Pulse Ox O2 Delivery O2 Flow Rate FiO2 07/22/24 19:01 94 16 118/60 (79) 98 35 07/22/24 18:00 Mechanical Ventilator+ 07/22/24 16:00 40 07/22/24 12:45 96.6 205.9 Total Intake and Output 07/21/24 07/21/24 07/22/24 15:00 23:00 07:00 Intake Total 110.25 ml 140.00 ml 351.002 ml Output Total 0 ml 0 ml Balance 110.25 ml 140.00 ml 351.002 ml medications Current Medications Medications Dose Ordered Sig/Camacho Route Start Time Stop Time Status Last Admin Dose Admin Norepinephrine Bitartrate 250 ml @ 3.75 mls/hr Q24H IV 07/20/24 21:15 07/21/24 08:51 3.75 MLS/HR Pantoprazole Sodium 40 mg DAILY IV 07/21/24 10:00 07/22/24 11:12 40 MG Heparin Sodium (Porcine) 5,000 units Q12HR SC 07/21/24 10:00 07/22/24 11:40 5,000 UNITS Vancomycin HCl 0 ml @ 0 mls/hr UD IV 07/21/24 02:15 Midazolam HCl 50 ml @ 1 mls/hr Q24H IV 07/21/24 03:45 07/21/24 17:02 1 MLS/HR Fentanyl Citrate 250 ml @ 2.5 mls/hr Q24H IV 07/21/24 03:45 07/21/24 04:37 2.5 MLS/HR Diagnostic Test (Pha) 1 strip Q6HR 07/21/24 18:00 07/22/24 18:00 1 STRIP Insulin Human Regular Q6HR SC 07/21/24 18:00 Dextrose 50 ml UD PRN IV 07/21/24 15:00 07/21/24 19:04 50 ML Piperacillin Sod/ Tazobactam Sod 50 ml @ 12.5 mls/hr Q8HR IV 07/21/24 22:00 07/22/24 16:54 12.5 MLS/HR Dextrose 1,000 ml @ 25 mls/hr Q24H IV 07/21/24 19:15 07/21/24 20:30 25 MLS/HR Examination: LUNGS:Abnormal, CVS:Normal, NEURO:Abnormal laboratory and microbiology Laboratory Tests 07/22/24 04:34 Test 07/22/24 04:34 Range/Units Serum Glucose 80 74-106 mg/dL Problem List/Assessment/Plan Problem List/Assessment/Plan NSTEMI likely type 2 UT. Acute on chronic HFpEF. Acute hypoxic respiratory failure. Pericardial effusion, recurrent. Sepsis, suspected pneumonia. HTN. HLD. 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 ESRD on HD. HLD. Plan/Recommendation Continued all current supportive medical care. Patient has been seen by Sharif Quintana GEAR TECHNICIAN on my behalf, him and I discussed the plan with the patient. Vasopressors for hemodynamic support. GI prophylactics. IV antibiotics as ordered. Additional plan as per the hospital course. Plan discussed with: Other Dietary Evaluation Review Comments: 1.Consider EN regime nepro@20ml/hr to provide 850 Kcal 39g Protein 349ml Free Water to meet nutritional needs 2.Consider PN regime NPO > 5 days Expected Outcomes/Goals: >75% nutritional intake, labs WNL Date of Service: Jul 22, 2024 Billing Provider: DEWEY SMITH MD Cardiology Common Codes: [id number] HOSP CARE(High DEWEY SMITH MD Jul 22, 2024 19:24
[2024-07-22] MEDS: VANCOMYCIN 500mg/100mL 100 ML IV ONE (20:12)
--- NOTE | 2024-07-22 20:37 | DVHPN2 ---
Progress Note - Dictate Date Seen: Jul 22, 2024 Medical Necessity Reason Pt with a Central, PICC or Fol: Yes The following are medically ne: Central Line Subjective Patient was seen and evaluated in follow up in ICU. Chart/events reviewed. Patient is sedated, intubated on mechanical ventilator support. 35% FiO2. On Levophed support, low rate. Labs are remarkable for elevated WBC 17.6, Creatinine 8.21 with BUN of 90, AST 73. Echocardiogram reported EF of 30%, mildly dilated and hypokinetic RV, global yqmc-[id number] pericardial effusion no evidence of tamponade. vital signs Vital Sign Date Time Temp Pulse Resp B/P (MAP) Pulse Ox O2 Delivery O2 Flow Rate FiO2 07/22/24 19:01 94 16 118/60 (79) 98 35 07/22/24 18:00 Mechanical Ventilator+ 07/22/24 18:00 40 07/22/24 12:45 96.6 205.9 Total Intake and Output 07/21/24 07/21/24 07/22/24 15:00 23:00 07:00 Intake Total 110.25 ml 140.00 ml 351.002 ml Output Total 0 ml 0 ml Balance 110.25 ml 140.00 ml 351.002 ml medications Current Medications Medications Dose Ordered Sig/Camacho Route Start Time Stop Time Status Last Admin Dose Admin Norepinephrine Bitartrate 250 ml @ 3.75 mls/hr Q24H IV 07/20/24 21:15 07/21/24 08:51 3.75 MLS/HR Pantoprazole Sodium 40 mg DAILY IV 07/21/24 10:00 07/22/24 11:12 40 MG Heparin Sodium (Porcine) 5,000 units Q12HR SC 07/21/24 10:00 07/22/24 11:40 5,000 UNITS Vancomycin HCl 0 ml @ 0 mls/hr UD IV 07/21/24 02:15 Midazolam HCl 50 ml @ 1 mls/hr Q24H IV 07/21/24 03:45 07/21/24 17:02 1 MLS/HR Fentanyl Citrate 250 ml @ 2.5 mls/hr Q24H IV 07/21/24 03:45 07/21/24 04:37 2.5 MLS/HR Diagnostic Test (Pha) 1 strip Q6HR 07/21/24 18:00 07/22/24 18:00 1 STRIP Insulin Human Regular Q6HR SC 07/21/24 18:00 Dextrose 50 ml UD PRN IV 07/21/24 15:00 07/21/24 19:04 50 ML Piperacillin Sod/ Tazobactam Sod 50 ml @ 12.5 mls/hr Q8HR IV 07/21/24 22:00 07/22/24 16:54 12.5 MLS/HR Dextrose 1,000 ml @ 25 mls/hr Q24H IV 07/21/24 19:15 07/21/24 20:30 25 MLS/HR objective Vitals and nursing notes reviewed. General appearance: Ill-appearing, in no acute distress. HEENT: Normocephalic, atraumatic, PERRLA Neck: Supple, no bruits Chest: Intubated. Breath sounds rales/rhonchi. Heart: Regular rate; no murmur or gallop Abdomen: Soft, nontender, nondistended Musculoskeletal: No clubbing, no cyanosis, trace lower extremity edema Skin: Warm, moist. Neurological: Sedated laboratory and microbiology Laboratory Tests 07/22/24 04:34 Test 07/22/24 04:34 Range/Units Serum Glucose 80 74-106 mg/dL Problem List Metabolic encephalopathy secondary to sepsis Acute respiratory failure Cardiorenal syndrome type 3 ESRD on hemodialysis Pericardial effusion Anasarca NSTEMI Transaminitis Normocytic anemia Diabetes - uncontrolled (hemoglobin A1c 7.1%) Hypertension Dyslipidemia Assessment/Plan Agree with current supportive medical care. Cardiology and vent/respiratory care management deferred. Vasopressors for hemodynamic support prn. HD- 07/22- UF 0, cleaning only today. Albumin 25%/100 mL for BP support, Empirical IV antibiotics with Vancomycin and Zosyn. Dextrose 10% 1,000mL at 25 mL/hr. GI prophylaxis. Nutritional support. Media Analytics Manager consulted. Additional plan as per the hospital course. Dietary Evaluation Review Comments: 1.Consider EN regime nepro@20ml/hr to provide 850 Kcal 39g Protein 349ml Free Water to meet nutritional needs 2.Consider PN regime NPO > 5 days Expected Outcomes/Goals: >75% nutritional intake, labs WNL Plan discussed with: Other (RN) JOSE LUIS SMITH DO Jul 22, 2024 20:37
[2024-07-23] VITALS (104 sets, daily range): BP systolic 76–145; BP diastolic 38–98; PULSE 82–128; RESP 14–16; TEMP 73–99.7; O2SAT 96–100
[2024-07-23 03:56] LABS: Anion Gap 13 (5-15); Carbon Dioxide 25 mmol/L (20-31); Potassium 3.6 mmol/L (3.5-5.1)
[2024-07-23 03:59] LABS: Basophils # (auto) 0.1 10 ^3/uL (0-0.2); Basophils % (auto) 0.5 % (0.0-2.0); Eosinophils # (auto) 0.2 10 ^3/uL (0-0.8); Eosinophils % (auto) 1.8 % (0.0-7.0); Hematocrit 30.7 % (36.0-46.0); Hemoglobin 10.4 g/dL (12.2-16.2); Lymphocytes # (auto) 0.5 10 ^3/uL (0.4-5.4); Lymphocytes % (auto) 3.9 % (10.0-50.0); Mean Corpuscular Hemoglobin 33.1 pg (28.0-32.0); Mean Corpuscular Hgb Conc. 33.8 g/dL (32.0-36.0); Monocytes # (auto) 0.3 10 ^3/uL (0-1.3); Monocytes % (auto) 2.7 % (0.0-12.0); Neutrophils # (auto) 11.9 10 ^3/uL (1.6-8.6); Neutrophils % (auto) 91.1 % (37.0-80.0); Nucleated Red Blood Cells % 0.2 %; Platelet Count (auto) 104 10^3/uL (140-450); Red Blood Cells 3.13 10^6/uL (4.0-5.20); Red Cell Distribution Width 15.1 % (11.8-14.3); White Blood Cell 13.1 10^3/uL (4.4-10.8)
[2024-07-23 04:02] LABS: BUN/Creatinine Ratio 10.2 (10.0-20.0)
[2024-07-23 04:12] LABS: Blood Urea Nitrogen 64 mg/dL (9-23); Calcium 8.6 mg/dL (8.7-10.4); Chloride 94 mmol/L (98-107); Glucose 129 mg/dL (74-106); Sodium 132 mmol/L (136-145)
--- NOTE | 2024-07-23 05:17 | DVH ---
EXAM: XR Chest, 1 View CLINICAL INDICATION: ARF TECHNIQUE: Frontal view of the chest. COMPARISON: XY CHEST PORTABLE on DOS: 07/22/24, XY CHEST XRAY 1 VIEW on DOS: 07/20/24, XY CHEST XRAY 1 VIEW on DOS: 07/20/24, XY CHEST PORTABLE on DOS: 05/03/24, XY CHEST PORTABLE on DOS: 05/01/24 FINDINGS: LUNGS AND PLEURAL SPACES: Increasing congestive heart failure. No consolidation. No pneumothorax. HEART: Unremarkable. No cardiomegaly. MEDIASTINUM: Unremarkable. Normal mediastinal contour. BONES/JOINTS: Unremarkable. No acute fracture. TUBES, LINES AND DEVICES: Stable tubes and lines. OTHER FINDINGS: . IMPRESSION: Increasing congestive heart failure.
[2024-07-23 08:03] LABS: Base Excess -0.5 mmol/L (-2.0-3.0)
--- NOTE | 2024-07-23 08:39 | DVHPN2 ---
Progress Note - Dictate Date Seen: Jul 23, 2024 Medical Necessity Reason Pt with a Central, PICC or Fol: Yes The following are medically ne: Central Line Subjective Patient was seen and evaluated in follow up in ICU. Chart/events reviewed. Patient remains sedated, intubated on mechanical ventilator support. FiO2 is 35%. Continues on pressor support. Labs are remarkable for Creatinine 6.30 with BUN of 64. Na 132. Anion Gap 16. Clacium 8.4. Albumin 2.5. Total protein 4.9. WBC 13. vital signs Vital Sign Date Time Temp Pulse Resp B/P (MAP) Pulse Ox O2 Delivery O2 Flow Rate FiO2 07/23/24 08:28 91 16 111/66 (81) 100 35 07/23/24 06:45 94.6 202.3 07/23/24 06:00 Mechanical Ventilator+ 07/23/24 04:00 Total Intake and Output 07/22/24 07/22/24 07/23/24 15:00 23:00 07:00 Intake Total 292.25 ml 72.50 ml 103.75 ml Balance 292.25 ml 72.50 ml 103.75 ml medications Current Medications Medications Dose Ordered Sig/Camacho Route Start Time Stop Time Status Last Admin Dose Admin Norepinephrine Bitartrate 250 ml @ 3.75 mls/hr Q24H IV 07/20/24 21:15 07/22/24 21:35 3.75 MLS/HR Pantoprazole Sodium 40 mg DAILY IV 07/21/24 10:00 07/22/24 11:12 40 MG Heparin Sodium (Porcine) 5,000 units Q12HR SC 07/21/24 10:00 07/22/24 21:35 5,000 UNITS Vancomycin HCl 0 ml @ 0 mls/hr UD IV 07/21/24 02:15 Midazolam HCl 50 ml @ 1 mls/hr Q24H IV 07/21/24 03:45 07/22/24 21:34 2 MLS/HR Fentanyl Citrate 250 ml @ 2.5 mls/hr Q24H IV 07/21/24 03:45 07/21/24 04:37 2.5 MLS/HR Diagnostic Test (Pha) 1 strip Q6HR 07/21/24 18:00 07/23/24 06:36 1 STRIP Insulin Human Regular Q6HR SC 07/21/24 18:00 07/23/24 06:37 2 UNITS Dextrose 50 ml UD PRN IV 07/21/24 15:00 07/21/24 19:04 50 ML Piperacillin Sod/ Tazobactam Sod 50 ml @ 12.5 mls/hr Q8HR IV 07/21/24 22:00 07/23/24 06:36 12.5 MLS/HR Dextrose 1,000 ml @ 25 mls/hr Q24H IV 07/21/24 19:15 07/21/24 20:30 25 MLS/HR objective Vitals and nursing notes reviewed. General appearance: Ill-appearing, in no acute distress. HEENT: Normocephalic, atraumatic, PERRLA Neck: Supple, no bruits Chest: Intubated. Breath sounds rales/rhonchi. Heart: Regular rate; no murmur or gallop Abdomen: Soft, nontender, nondistended Musculoskeletal: No clubbing, no cyanosis, trace lower extremity edema Skin: Warm, moist. Neurological: Sedated laboratory and microbiology Laboratory Tests 07/23/24 03:16 Test 07/23/24 03:16 Range/Units Serum Glucose 129 H 74-106 mg/dL Problem List Metabolic encephalopathy secondary to sepsis Acute respiratory failure Cardiorenal syndrome type 3 ESRD on hemodialysis Pericardial effusion Anasarca NSTEMI Transaminitis Normocytic anemia Diabetes - uncontrolled (hemoglobin A1c 7.1%) Hypertension Dyslipidemia Assessment/Plan Agree with current supportive medical care. Cardiology and vent/respiratory care management deferred. Vasopressors for hemodynamic support prn. Next dialysis 07/24. Empirical IV antibiotics with Vancomycin and Zosyn. Dextrose 10% 1,000mL at 25 mL/hr q24h. GI / DVT prophylaxis. Nutritional support. Industrial Pharmacist consulted. Additional plan as per the hospital course. Dietary Evaluation Review Comments: 1.Consider EN regime nepro@20ml/hr to provide 850 Kcal 39g Protein 349ml Free Water to meet nutritional needs 2.Consider PN regime NPO > 5 days Expected Outcomes/Goals: >75% nutritional intake, labs WNL Plan discussed with: Other (RN) JOSE LUIS SMITH DO Jul 23, 2024 08:39
--- NOTE | 2024-07-23 13:53 | ECG ---
[facility] Test Date: 2024-07-20 Test Time: 20:57:25 Pat Name: JOSE SCHERER Department: ER Room: [address] [place] [address] A Gender: F Lead Section Supervisor: ER : [id number] Requested By: PAOLA ROSS Order Number: [id number] Reading MD: Gonzales Serrano Measurements Intervals Elliott Rate: 106 P: -16 KS: 196 QRS: 123 QRSD: 121 T: 91 QT: 400 QTc: 532 Interpretive Statements Sinus tachycardia Right bundle branch block Nonspecific T abnormalities, lateral leads Electronically Signed On 07-23-2024 19:07:45 PDT by Gonzales Serrano Please click the below link to view image of tracing.
--- NOTE | 2024-07-23 13:56 | MEDREC ---
[facility] Intervention Section I [facility] Intervention: Review courses of therapy (MRSA SCREEN POSITIVE CONSIDER ADDING MUPIROCIN 2% OINTMENT 1 APPLICATION IN EACH NOSTRIL BID FOR 5 DAYS ) MUNDO HURTADO PHARMACIST Jul 23, 2024 13:56
--- NOTE | 2024-07-23 16:40 | DVHPN2 ---
Subjective Patient was remains intubated and sedated. Changes from previous H/P or p: No Changes Objective Vitals Vital Signs Date Time Temp Pulse Resp B/P (MAP) Pulse Ox O2 Delivery O2 Flow Rate FiO2 07/23/24 15:58 114 16 133/61 (85) 99 35 07/23/24 14:30 99.7 211.5 07/23/24 14:00 Mechanical Ventilator+ 07/23/24 04:00 Intake/Output Intake and Output 07/23/24 07:00 Intake Total 468.50 ml Balance 468.50 ml Intake IV Total 468.50 ml # Bowel Movements 2 Exam HEENT pupils are reactive Neck is supple CV is S1-S2 regular rate and rhythm Respiratory diminished breath sound bilateral lung bases GI posterior bowel sound Extremity trace edema COINING PRESS OPERATOR intubated and sedated Medications Current Medications Medications Dose Ordered Sig/Camacho Route Start Time Stop Time Status Last Admin Dose Admin Norepinephrine Bitartrate 250 ml @ 3.75 mls/hr Q24H IV 07/20/24 21:15 07/22/24 21:35 3.75 MLS/HR Pantoprazole Sodium 40 mg DAILY IV 07/21/24 10:00 07/23/24 11:21 40 MG Heparin Sodium (Porcine) 5,000 units Q12HR SC 07/21/24 10:00 07/23/24 11:23 5,000 UNITS Vancomycin HCl 0 ml @ 0 mls/hr UD IV 07/21/24 02:15 Midazolam HCl 50 ml @ 1 mls/hr Q24H IV 07/21/24 03:45 07/23/24 15:05 3 MLS/HR Fentanyl Citrate 250 ml @ 2.5 mls/hr Q24H IV 07/21/24 03:45 07/23/24 09:34 7.5 MLS/HR Diagnostic Test (Pha) 1 strip Q6HR 07/21/24 18:00 07/23/24 12:00 1 STRIP Insulin Human Regular Q6HR SC 07/21/24 18:00 07/23/24 06:37 2 UNITS Dextrose 50 ml UD PRN IV 07/21/24 15:00 07/21/24 19:04 50 ML Piperacillin Sod/ Tazobactam Sod 50 ml @ 12.5 mls/hr Q8HR IV 07/21/24 22:00 07/23/24 14:18 12.5 MLS/HR Dextrose 1,000 ml @ 25 mls/hr Q24H IV 07/21/24 19:15 07/21/24 20:30 25 MLS/HR Laboratory Results Laboratory Tests 07/23/24 03:16 Chemistry Test 07/23/24 03:16 Calcium Level 8.6 mg/dL (8.7-10.4) L Cardiac Markers Test 07/23/24 03:16 B-Type Natriuretic Peptide 2765.30 pg/mL (0-100) Urinalysis Test 07/21/24 12:40 Urine Color Yellow (Yellow) Urine Clarity Turbid (Clear) H Urine pH 7.0 (5.0-9.0) Urine Specific Hammond 1.018 (1.001-1.035) Urine Protein 3+ (Negative) H Urine Ketones Trace (Negative) Urine Blood 2+ /uL (Negative) H Urine Nitrite Negative (Negative) Urine Bilirubin Negative (Negative) Urine Urobilinogen Normal mg/dL (Negative) Urine Leukocyte Esterase Negative /uL (Negative) Urine RBC 7 /hpf (0 - 4) Urine Microscopic WBC 51 /HPF (0-5) H Urine Squamous Epithelial Cells Few /hpf (<5) Urine Bacteria Few /hpf (None Seen) H Urine Mucus Few (None Seen) Urine Glucose 3+ mg/dL (Normal) H Blood Gas Results Test 07/23/24 07:51 Arterial Blood pH 7.411 (7.350-7.450) FiO2 % 35.0 Microbiology Microbiology Date/Time Source Procedure Growth Status 07/22/24 15:49 Blood Blood Culture - Preliminary NO GROWTH AFTER 24 HOURS OF INCUBATION. Resulted 07/22/24 01:47 Nose MRSA Screen - Final Complete 07/21/24 12:40 Voided Urine Urine Culture - Final Complete 07/20/24 21:29 Sputum Gram Stain - Final Complete 07/20/24 21:29 Respiratory Culture - Final Escherichia coli Complete Assessment/Plan Assessment/Plan 72-year-old female with a known history of diabetes mellitus type 2, hypertension, dyslipidemia, end-stage renal disease on hemodialysis, COPD, status post EVAR of thoracic and abdominal aorta presented to the hospital with increasing shortness of breath and altered mental status home to have unresponsiveness in the ER requiring intubation and ventilator support. 1. Acute encephalopathy suspected metabolic/septic encephalopathy 2. Septic shock secondary to Gram-negative pneumonia and Gram-negative bacteremia 3. E coli pneumonia 4. End-stage renal disease on hemodialysis, status post hemodialysis on07/22 5. Acute CHF exacerbation with systolic dysfunction with fluid overload 6. Right-sided pleural effusion 7. Pericardial effusion 8. Elevated troponin suspect demand ischemia/NSTEMI type 2 secondary to acute CHF exacerbation 9. Lactic acidosis , improving 10. Diabetes mellitus type 2, currently hypoglycemic on D10 drip 11. Gram-negative bacteremia , repeat blood cultures are negative 12. -start Nepro tube feeding RI, titrate D10 drip, titrated Levophed slowly. -continue vent support, daily ABG, chest x-ray, tailored down IV antibody Nephrology, cardiology follow up -patient remains critical prognosis remains guarded. Total critical time 35 minutes. Plan discussed with: Other My Orders Orders - BECKY PENNINGTON MD Procedure Category Date Status Time Chest Portable XY 07/23/24 Resulted 04:00 Date of Service: Jul 23, 2024 Billing Provider: BECKY PENNINGTON MD Common Visit Codes: [id number] INP/OBS CARE(HIGH) BECKY PENNINGTON MD Jul 23, 2024 16:40
--- NOTE | 2024-07-23 18:41 | DVHPN2 ---
Progress Note - Dictate Date Seen: Jul 23, 2024 Medical Necessity Reason Pt with a Central, PICC or Fol: Yes The following are medically ne: Central Line Subjective Patient was seen and evaluated in follow up in the ICU. Patient is intubated and sedated on ventilator. 35% FiO2. Patient continued on vasopressor support. Chest x-ray shows increasing congestive heart failure. WBC 13, BUN 64, Commercial Glazier 6.30. vital signs Vital Sign Date Time Temp Pulse Resp B/P (MAP) Pulse Ox O2 Delivery O2 Flow Rate FiO2 07/23/24 18:23 101 16 118/58 (78) 99 35 07/23/24 14:30 99.7 211.5 07/23/24 14:00 Mechanical Ventilator+ 07/23/24 04:00 Total Intake and Output 07/22/24 07/22/24 07/23/24 15:00 23:00 07:00 Intake Total 292.25 ml 72.50 ml 103.75 ml Balance 292.25 ml 72.50 ml 103.75 ml medications Current Medications Medications Dose Ordered Sig/Camacho Route Start Time Stop Time Status Last Admin Dose Admin Norepinephrine Bitartrate 250 ml @ 3.75 mls/hr Q24H IV 07/20/24 21:15 07/22/24 21:35 3.75 MLS/HR Pantoprazole Sodium 40 mg DAILY IV 07/21/24 10:00 07/23/24 11:21 40 MG Heparin Sodium (Porcine) 5,000 units Q12HR SC 07/21/24 10:00 07/23/24 11:23 5,000 UNITS Vancomycin HCl 0 ml @ 0 mls/hr UD IV 07/21/24 02:15 Midazolam HCl 50 ml @ 1 mls/hr Q24H IV 07/21/24 03:45 07/23/24 15:05 3 MLS/HR Fentanyl Citrate 250 ml @ 2.5 mls/hr Q24H IV 07/21/24 03:45 07/23/24 09:34 7.5 MLS/HR Diagnostic Test (Pha) 1 strip Q6HR 07/21/24 18:00 07/23/24 18:13 1 STRIP Insulin Human Regular Q6HR SC 07/21/24 18:00 07/23/24 06:37 2 UNITS Dextrose 50 ml UD PRN IV 07/21/24 15:00 07/21/24 19:04 50 ML Piperacillin Sod/ Tazobactam Sod 50 ml @ 12.5 mls/hr Q8HR IV 07/21/24 22:00 07/23/24 14:18 12.5 MLS/HR Enteral Nutritional Formula 1,000 ml 30ML/HR GT 07/23/24 16:45 Mupirocin 1 applic BID EACHNOSTRI 07/23/24 22:00 07/28/24 21:59 objective GENERAL: Ill appearing, intubated on ventilator. LUNGS: Decreased breath sounds. CARDIOVASCULAR: Heart sounds are good. ABDOMEN: Soft. EXT: BLE edema. laboratory and microbiology Laboratory Tests 07/23/24 03:16 Test 07/23/24 03:16 Range/Units Serum Glucose 129 H 74-106 mg/dL Problem List NSTEMI likely type 2 MD. Acute on chronic HFpEF. Acute hypoxic respiratory failure. Pericardial effusion, recurrent. Sepsis, suspected pneumonia. HTN. HLD. 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 ESRD on HD. HLD. Gram-negative bacteremia. Diabetes mellitus type 2. Assessment/Plan Continued all current supportive medical care. Vasopressors for hemodynamic support. GI prophylactics. IV antibiotics as ordered. Additional plan as per the hospital course. Critical care time of 45 minutes provided to include time spent evaluation of patient at bedside, when appropriate patient/family education for diagnosis, treatment plan, review of pertinent medical information and discussion of care with specialty providers and PCP. Mechanical ventilator parameters, treatment and adjustments have personally been reviewed by me and treatment plan by wire frame dipper has also been reviewed. Dietary Evaluation Review Comments: 1.Consider EN regime nepro@20ml/hr to provide 850 Kcal 39g Protein 349ml Free Water to meet nutritional needs 2.Consider PN regime NPO > 5 days Expected Outcomes/Goals: >75% nutritional intake, labs WNL Plan discussed with: Other DEWEY SMITH MD Jul 23, 2024 18:41
--- NOTE | 2024-07-23 20:10 | DVHPN2 ---
Progress Note - Dictate Date Seen: Jul 23, 2024 Medical Necessity Reason Pt with a Central, PICC or Fol: Yes The following are medically ne: Central Line, Barron Catheter Reason for barron catheter: Strict I&O Subjective Patient seen and examined at bedside. Sedated, intubated on mechanical ventilator. Overnight events reviewed. vital signs Vital Sign Date Time Temp Pulse Resp B/P (MAP) Pulse Ox O2 Delivery O2 Flow Rate FiO2 07/23/24 19:54 111 16 126/59 (81) 99 35 07/23/24 19:31 98.8 209.8 07/23/24 18:00 Mechanical Ventilator+ 07/23/24 04:00 Total Intake and Output 07/22/24 07/22/24 07/23/24 15:00 23:00 07:00 Intake Total 292.25 ml 72.50 ml 103.75 ml Balance 292.25 ml 72.50 ml 103.75 ml medications Current Medications Medications Dose Ordered Sig/Camacho Route Start Time Stop Time Status Last Admin Dose Admin Norepinephrine Bitartrate 250 ml @ 3.75 mls/hr Q24H IV 07/20/24 21:15 07/22/24 21:35 3.75 MLS/HR Pantoprazole Sodium 40 mg DAILY IV 07/21/24 10:00 07/23/24 11:21 40 MG Heparin Sodium (Porcine) 5,000 units Q12HR SC 07/21/24 10:00 07/23/24 11:23 5,000 UNITS Vancomycin HCl 0 ml @ 0 mls/hr UD IV 07/21/24 02:15 Midazolam HCl 50 ml @ 1 mls/hr Q24H IV 07/21/24 03:45 07/23/24 15:05 3 MLS/HR Fentanyl Citrate 250 ml @ 2.5 mls/hr Q24H IV 07/21/24 03:45 07/23/24 09:34 7.5 MLS/HR Diagnostic Test (Pha) 1 strip Q6HR 07/21/24 18:00 07/23/24 18:13 1 STRIP Insulin Human Regular Q6HR SC 07/21/24 18:00 07/23/24 06:37 2 UNITS Dextrose 50 ml UD PRN IV 07/21/24 15:00 07/21/24 19:04 50 ML Piperacillin Sod/ Tazobactam Sod 50 ml @ 12.5 mls/hr Q8HR IV 07/21/24 22:00 07/23/24 14:18 12.5 MLS/HR Enteral Nutritional Formula 1,000 ml 30ML/HR GT 07/23/24 16:45 Mupirocin 1 applic BID EACHNOSTRI 07/23/24 22:00 07/28/24 21:59 objective Gen.: Patient lying in bed in medical ICU. Sedated, intubated on mechanical ventilator. Head: Normocephalic, atraumatic. Eyes: PERRLA. Ears: Normal external anatomy. Throat: Endotracheal tube and orogastric tube in place. Neck: Supple, trachea midline. Chest: Transmitted breath sounds bilaterally. Decreased air entry bilaterally. No wheezing. Bibasilar crackles. Cardiovascular: Positive S1, positive S2. Regular rate and rhythm. Abdomen: Positive bowel sounds in all 4 quadrants. Soft, nontender, nondistended. : Barron in place. Normal external genitalia. Rectal: Deferred. Skin: Warm, dry. Intact. Extremities: 2+ radial pulses bilaterally. No lower extremity edema. Neuro: Sedated. laboratory and microbiology Laboratory Tests 07/23/24 03:16 Test 07/23/24 03:16 Range/Units Serum Glucose 129 H 74-106 mg/dL Assessment/Plan Impression: Acute hypoxemic respiratory failure On mechanical ventilator Altered mental status End-stage renal disease Pericardial effusion Events: Remains on vent support On AC mode; RR 16, VT 500, PEEP 8, FiO2 35% Will decrease PEEP to 5. CXR image and report reviewed. Devices in place. Increasing congestive heart failure. No consolidation. No pneumothorax. ABG reviewed, compensated. Sedated on Versed, Fentanyl On pressors for hemodynamic support Levophed 3 mcg/min Titrate to keep mean arterial pressure greater than 65 mmHg. Continue antibiotics D10W infusion. SBT/LENARD CPAP with PS 8, PEEP of 5. Hemodialysis per Nephrology. Monitor renal function. Monitor electrolytes. Supplement as necessary. Monitor ins and outs. CT chest demonstrated anasarca with pleural and pericardial effusion, cardiomegaly, patchy opacities, ?pneumonia. Labs and imaging reviewed. Rest of plan as noted below. Plan: s/p intubation on mechanical ventilator. On AC mode; RR 16, VT 500, PEEP 8, FiO2 35% Will decrease PEEP to 5. Titrate FIO2 to keep O2 saturation above 90%. VAP bundle. Daily ABG and CXR while intubated Sedate for ventilator synchrony On pressors for hemodynamic support Titrate to keep mean arterial pressure greater than 65 mmHg. HD and fluid removal per Nephrology Monitor renal function. Monitor electrolytes. Supplement as necessary. Monitor ins and outs. Empiric antibiotics No fever Nutrition Glycemic control GI prophylaxis - Protonix. DVT prophylaxis - Heparin SC. Prognosis: Poor given patient's multiple co-morbidities. Condition: Critical Rest of plan per hospitalist and other consultants. A total of 35 minutes of critical care time was spent reviewing the patient record, examining the patient, making a diagnostic and therapeutic plan, discussing this plan with the medical personnel, following up on diagnostic studies and following the patient for clinical stability excluding any and all procedures. At least 50% of this time was spent in direct, [id number] contact. Thank you, Dr. Christopher, for allowing me to participate in this patient's care. Further recommendations will depend on the patient's clinical course. Please do not hesitate to contact me if you have any questions or concerns. This medical document was created using an electronic medical record system with [employer] dictation system. Although these documentations are being carefully reviewed, there may still be some phonetic and typographical changes. The errors are purely typographical, due to imperfection on the software program, and do not reflect any compromise in the patient's medical care. Dietary Evaluation Review Comments: 1.Consider EN regime nepro@20ml/hr to provide 850 Kcal 39g Protein 349ml Free Water to meet nutritional needs 2.Consider PN regime NPO > 5 days Expected Outcomes/Goals: >75% nutritional intake, labs WNL Plan discussed with: Other (KALIN Swanson) Critical Care Time(min): 35 SHE JANE MD Jul 23, 2024 20:10
--- NOTE | 2024-07-23 20:46 | DVHINCON2 ---
Date of service: Jul 23, [address] Christopher Reason for Consultation Different size pupils History of Present Illness Ms. Em is a 69 years old right-handed female with a history of hypertension, diabetes, the patient came to the hospital on 07/20/2024 with a chief come of shortness of breath. At this time, she was intubated sedated, on pressor drip, responds to stroke painful stimuli, history is obtained from chart review I saw on 12/20/2016 for ALOC (UTI, hypotension) On 07/20/2024, the patient developed nausea, vomiting, diarrhea and abdominal pain, on arrival to the scene, EMS personnel noticed shortness breath and her pulse ox was 70% at 6 L/m oxygen, but mentally she was fine on initial examination, but later she become weak, apneic and nonresponsive, she was back on the way to the ER, and she was intubated in the ER On 07/23/2024, the patient was noticed to have unequal pupil size with left slightly bigger, per my observation, the left pupil is slightly bigger, 1 mm and 1.5 mm, the left pupil is surgical, and there is minimal light reflexes in both pupils UDS, 07/21/2024: Negative Plasma alcohol, 07/20/2024: <3 Urinalysis, : WBC: 15, urine leukocyte esterase: Negative ABG, 07/20/2024: Acidosis WBC/Hb/PLT, 07/23/2024: 3.1/10.4/104/98 PT/INR/PTT, 07/20/2024: 15.1/1.48/ BUNs/CR, 07/20/2024: 78/7.58, 07/22/2024: 19/8.21, 07/23/2024: 64/6.3 Lactic acid, 07/08/2024, 4.3, 3.6 Total bilirubin/AST/ALT/AP, 07/22/2024: 1/73/18/157 TG/HDL/LDL/HDL, 07/20/2024: 232/167/75/27 Vitamin B12, 12/2016:1069, 12/22/16: >2000 Folic acid, 12/2016:10.79 TSH, 12/2016:0.69 EEG, 12/21/16: Normal Carotid Doppler, 07/21/2024: Very limited examination. Unable to evaluate the left carotid system and unable to visualize the right common carotid artery. The degree of carotid stenosis can not be determined on this examination. Findings in the visualized portions of the right carotid system as described above Echocardiogram, 07/22/2024: GLOBAL PERICARDIAL EFFUSION IN RANGE OF 1.0 TO 1.5 CM IN WIDTH NO RV COLLAPSE NO EVIDENCE OF PERICARDIAL TAMPONADE DILATED ALL CARDIAC CHAMBERS AND ARE HYPOKINETIC LV EF IS 30% AND IS MODERATELY REDUCED MODERATELY DILATED RV AND IS HYPOKINETIC NORMAL VALVES Chest, 07/20/2024: Patient has a pericardial effusion which could cause tamponade I recommend cardiac echo. There is a large consolidate involving the right lower lobe and there is pulmonary vascular congestion as well ( Endotracheal tube is below the clavicles just above the aortic arch) Chest x-ray, 07/23/2024: Increasing congestive heart failure. CT head, 07/20/2024: No acute intracranial abnormality Past Medical History Hypertension, diabetes, dyslipidemia, coronary artery disease, heart attack, COPD, end-stage kidney failure, anemia Past Surgical History Family History: Family history: Diabetes mellitus G8 FATHER Family History Diabetes Social History She doesn't smoke, no history of alcohol recreational substance abuse Allergies: Coded Allergies: Hydrocodone (Verified Allergy, Severe, 04/22/24) Morphine (Verified Allergy, Severe, 04/22/24) Home Meds Active Scripts Yeast (S. Boulardii)(S. Cerevi (Florastor) 250 Mg Cap, 250 MG PO BID for 30 Days, #60 CAP Prov:FRAN SAMPSON MD 05/04/24 Carvedilol (COREG) 3.125 Mg Tab, 3.125 MG PO Q12HR for 60 Days, #120 TAB Prov:TASNEEM DE JESUS MD 01/08/17 Spironolactone (Aldactone) 25 Mg Tab, 25 MG PO DAILY, #30 TAB Prov:TASNEEM DE JESUS MD 01/08/17 Cholecalciferol (Vitamin D3) 1,000 Unit Tab, 2000 UNIT PO DAILY, #30 TAB Prov:TASNEEM DE JESUS MD 01/08/17 Captopril (Captopril) 12.5 Mg Tab, 12.5 MG PO Q8HR, #90 TAB Prov:TASNEEM DE JESUS MD 01/08/17 Current Medications Current Medications Medications (Trade) Dose Ordered Sig/Camacho Route PRN Reason Start Time Stop Time Status Last Admin Enteral Nutritional Formula (Nepro With Carb Steady) 1,000 ml 30ML/HR GT 07/23/24 16:45 Mupirocin (Bactroban 2% Ointment) 1 applic BID EACHNOSTRI 07/23/24 22:00 07/28/24 21:59 Review of Systems As above, the other system are negative Vital Signs Vital Signs Date Time Temp Pulse Resp B/P (MAP) Pulse Ox O2 Delivery O2 Flow Rate FiO2 07/23/24 19:54 111 16 126/59 (81) 99 35 07/23/24 19:31 98.8 209.8 07/23/24 18:00 Mechanical Ventilator+ 07/23/24 04:00 Physical Exam The patient is well-nourished and well-developed with no distress. The patient is intubated HEENT: Normocephalic, neck supple, no carotid bruits Lungs: Clear to auscultation Cardiovascular: Regular rate and region, S1, S2, no murmurs Abdomen: Soft, nontender, normal bowel sounds MENTAL STATUS: Me nonresponsiveness to stroke painful stimuli CRANIAL NERVES: Pupils are slightly reactive, left-sided slightly bigger, status post surgery.There are corneal reflexes and doll's eyes phenomenon. No signs of facial weakness. There are gagging or coughing reflexes. There is no abnormal vascular dilatation, skin secretion in face SENSATION: Slightly responses to pain stimuli. MOTOR: Normal tone in the upper and lower extremity. Normal muscle bulk. No fasciculations. No spontaneous movement. REFLEXES: Deep tendon reflexes are symmetrical. No pathological reflexes. CEREBELLAR/COORDINATION: Deferred GAIT/STATION: deferred. Labs/Diagnostic Data Labs Test 07/23/24 18:14 07/23/24 07:51 07/23/24 03:16 07/22/24 04:34 Range/Units POC Glucose 108 H 70-106 mg/dl Blood Gas Specimen Type Arterial Blood Gas Sample Site Right brachial Blood Gas Patient Temperature 37.0 Arterial Blood Date Drawn [id number] Arterial Blood pH 7.411 7.350-7.450 Arterial Blood Partial Pressure CO2 38.5 32.0-45.0 mmHg Arterial Blood Partial Pressure O2 94.2 83.0-108.0 mmHg Arterial Blood HCO3 23.9 21.0-28.0 mmol/L Arterial Blood Oxygen Saturation 96.4 94.0-98.0 % Arterial Blood Base Excess -0.5 -2.0-3.0 mmol/L Arterial Blood Oxyhemoglobin 96.0 94.0-98.0 % Arterial Blood Carboxyhemoglobin 0.2 L 0.5-1.5 % Arterial Blood Methemoglobin 0.2 0.0-1.5 % Lan Test Modified Blood Gas Total Hemoglobin 13.20 12.0-16.0 g/dL Blood Gas Set Respiration Rate 16.0 Blood Gas Modality Vent - ac FiO2 % 35.0 Blood Gas Tidal Volume 500.0 Blood Gas PEEP or CPAP 8.0 White Blood Count 13.1 #H 4.4-10.8 10^3/uL Red Blood Count 3.13 L 4.0-5.20 10^6/uL Hemoglobin 10.4 L 12.2-16.2 g/dL Hematocrit 30.7 #L 36.0-46.0 % Mean Corpuscular Volume 98.0 80.0-100.0 fL Mean Corpuscular Hemoglobin 33.1 H 28.0-32.0 pg Mean Corpuscular Hemoglobin Concent 33.8 32.0-36.0 g/dL Red Cell Distribution Width 15.1 H 11.8-14.3 % Platelet Count 104 L 140-450 10^3/uL Mean Platelet Volume 11.1 H 6.9-10.8 fL Neutrophils (%) (Auto) 91.1 H 37.0-80.0 % Lymphocytes (%) (Auto) 3.9 L 10.0-50.0 % Monocytes (%) (Auto) 2.7 0.0-12.0 % Eosinophils (%) (Auto) 1.8 0.0-7.0 % Basophils (%) (Auto) 0.5 0.0-2.0 % Neutrophils # (Auto) 11.9 H 1.6-8.6 10 ^3/uL Lymphocytes # (Auto) 0.5 0.4-5.4 10 ^3/uL Monocytes # (Auto) 0.3 0-1.3 10 ^3/uL Eosinophils # (Auto) 0.2 0-0.8 10 ^3/uL Basophils # (Auto) 0.1 0-0.2 10 ^3/uL Nucleated Red Blood Cells 0.2 % Sodium Level 132 L 136-145 mmol/L Potassium Level 3.6 3.5-5.1 mmol/L Chloride Level 94 L 98-107 mmol/L Carbon Dioxide Level 25 20-31 mmol/L Anion Gap 13 5-15 Blood Urea Nitrogen 64 #H 9-23 mg/dL Creatinine 6.30 H 0.550-1.02 mg/dL Glomerular Filtration Rate Calc 7 >90 mL/min BUN/Creatinine Ratio 10.2 10.0-20.0 Serum Glucose 129 H 74-106 mg/dL Calcium Level 8.6 L 8.7-10.4 mg/dL B-Type Natriuretic Peptide 2765.30 0-100 pg/mL Random Vancomycin Level 25.7 H 5-10 ug/mL Differential Total Cells Counted 100.0 100 Neutrophils % (Manual) 34 L 37.0-80.0 Band Neutrophils % (Manual) 59 Lymphocytes % (Manual) 4 L 10.0-50.0 Monocytes % (Manual) 2 0-12 Eosinophils % (Manual) 0 0-7 Basophils % (Manual) 0 0.0-2.0 Metamyelocytes % (manual) 1 Myelocytes % (Manual) 0 Promyelocytes % (Manual) 0 Blast Cells % (Manual) 0 Reactive Lymphocytes 0 Platelet Estimate Adequate Anisocytosis (manual) Slight Magnesium Level 2.3 1.6-2.6 mg/dL Total Bilirubin 1.0 0.2-1.0 mg/dL Aspartate Amino Transferase (AST) 73 H 13-40 U/L Alanine Aminotransferase (ALT) 18 7-40 U/L Alkaline Phosphatase 157 H 46-116 U/L Total Protein 5.0 L 5.7-8.2 g/dL Albumin 2.6 L 3.2-4.8 g/dL Hepatitis B Surface Antigen Negative Negative Test 07/21/24 12:40 07/21/24 01:15 07/21/24 00:16 07/20/24 23:21 Range/Units Urine Color Yellow Yellow Urine Clarity Turbid H Clear Urine pH 7.0 5.0-9.0 Urine Specific [place] 1.018 1.001-1.035 Urine Protein 3+ H Negative Urine Ketones Trace Negative Urine Blood 2+ H Negative /uL Urine Nitrite Negative Negative Urine Bilirubin Negative Negative Urine Urobilinogen Normal Negative mg/dL Urine Leukocyte Esterase Negative Negative /uL Urine RBC 7 0 - 4 /hpf Urine Microscopic WBC 51 H 0-5 /HPF Urine Squamous Epithelial Cells Few <5 /hpf Urine Bacteria Few H None Seen /hpf Urine Mucus Few None Seen Urine Glucose 3+ H Normal mg/dL Urine Opiates Screen Neg NEGATIVE Urine Fentanyl Screen Neg NEGATIVE Urine Barbiturates Screen Neg NEGATIVE Urine Phencyclidine Screen Neg NEGATIVE Urine Amphetamines Screen Neg NEGATIVE Urine Benzodiazepines Screen Neg NEGATIVE Urine Cocaine Screen Neg NEGATIVE Urine Cannabinoids Screen Neg NEGATIVE Lactic Acid Level 2.0 0.4-2.0 mmol/L Troponin I High Sensitivity 141 *H </=34 ng/L Blood Gas Spontaneous Rate 16 Blood Gas Inspiratory Pressure 44.0 Specimen Drawn By Blood Gas Notified Whom andrea Ramirez md Blood Gas Notified Time [id number] Blood Gas Notified By Test 07/20/24 22:09 07/20/24 21:36 07/20/24 20:50 Range/Units Triglycerides Level 232 H < 150 mg/dL Cholesterol Level 167 < 200 mg/dL LDL Cholesterol 75 < 100 mg/dL HDL Cholesterol 27 L 40-59 mg/dL Influenza Type A Antigen Negative Negative Influenza Type B Antigen Negative Negative SARS-CoV-2 Antigen (Rapid) Negative NEGATIVE Prothrombin Time 15.1 H 9.3-11.8 sec Prothrombin Time INR 1.48 H 0.9-1.15 Hemoglobin A1c 7.1 H <5.7 % A1C Plasma/Serum Blood Alcohol < 3.0 <10 mg/dL Microbiology Date/Time Source Procedure Growth Status 07/22/24 15:49 Blood Blood Culture - Preliminary NO GROWTH AFTER 24 HOURS OF INCUBATION. Resulted 07/22/24 01:47 Nose MRSA Screen - Final Complete 07/21/24 12:40 Voided Urine Urine Culture - Final Complete 07/20/24 21:29 Sputum Gram Stain - Final Complete 07/20/24 21:29 Respiratory Culture - Final Escherichia coli Complete Assessment Anisocoria with left-sided slightly bigger, uncertain clinical significance Left surgical pupil Altered mental status Hypoxic encephalopathy Metabolic encephalopathy Acute respiratory failure Pneumonia ? Diabetic polyneuropathy Rule out other central nervous system pathology Plan/Recommendation Monitoring Supportive treatment Follow-up labs ICU care Stabilize vitals/pressor drip Record support/vent management Oxygen IV antibiotics DVT prophylaxis/heparin 5000 units subQ q.12 hours GI prophylaxis/Protonix 40 mg daily Further address possible diabetic polyneuropathy late More recommendation per clinical course Prognosis: Guarded Critical care time spent 45 minutes This medical document was created using an electronic medical record system with [employer] dictation system. Although this document has been carefully reviewed, there may still be some phonetic and typographical errors. These areas are purely typographical due to imperfections of the software programs, and do not reflect any compromise in the patient's medical care. Plan discussed with: Other FLORENTINO CLARK MD Jul 23, 2024 20:46
[2024-07-23] MEDS: MUPIROCIN 2% OINT 15gm or 22gm FOR MRSA NARES EACHNOSTRI SCH (22:00)
[2024-07-24] VITALS (107 sets, daily range): BP systolic 75–162; BP diastolic 38–71; PULSE 64–97; RESP 15–37; TEMP 98.1–99.5; O2SAT 90–100
[2024-07-24 03:51] LABS: Basophils # (auto) 0.1 10 ^3/uL (0-0.2); Basophils % (auto) 0.7 % (0.0-2.0); Eosinophils # (auto) 0.4 10 ^3/uL (0-0.8); Eosinophils % (auto) 4.8 % (0.0-7.0); Hematocrit 30.2 % (36.0-46.0); Hemoglobin 10.2 g/dL (12.2-16.2); Lymphocytes # (auto) 0.6 10 ^3/uL (0.4-5.4); Lymphocytes % (auto) 6.6 % (10.0-50.0); Mean Corpuscular Hemoglobin 33.1 pg (28.0-32.0); Mean Corpuscular Hgb Conc. 33.7 g/dL (32.0-36.0); Mean Corpuscular Volume 98.1 fL (80.0-100.0); Monocytes # (auto) 0.5 10 ^3/uL (0-1.3); Monocytes % (auto) 5.6 % (0.0-12.0); Neutrophils # (auto) 7.1 10 ^3/uL (1.6-8.6); Neutrophils % (auto) 82.3 % (37.0-80.0); Nucleated Red Blood Cells % 0.2 %; Platelet Count (auto) 79 10^3/uL (140-450); Red Blood Cells 3.08 10^6/uL (4.0-5.20); White Blood Cell 8.6 10^3/uL (4.4-10.8)
[2024-07-24 08:10] LABS: Alanine Aminotransferase 15 U/L (7-40); Anion Gap 16 (5-15); BUN/Creatinine Ratio 10.1 (10.0-20.0); Carbon Dioxide 22 mmol/L (20-31); Potassium 3.8 mmol/L (3.5-5.1)
[2024-07-24 08:11] LABS: Bilirubin, Total 1.1 mg/dL (0.2-1.0)
[2024-07-24 08:16] LABS: Albumin 2.5 g/dL (3.2-4.8); Alkaline Phosphatase 136 U/L (46-116); Aspartate Aminotransferase 43 U/L (13-40); Blood Urea Nitrogen 69 mg/dL (9-23); Calcium 8.4 mg/dL (8.7-10.4); Chloride 94 mmol/L (98-107); Glucose 142 mg/dL (74-106); Sodium 132 mmol/L (136-145); Total Protein 4.9 g/dL (5.7-8.2)
--- NOTE | 2024-07-24 08:30 | DVHPN2 ---
Progress Note - Dictate Date Seen: Jul 24, 2024 Medical Necessity Reason Pt with a Central, PICC or Fol: Yes The following are medically ne: Central Line, Barron Catheter Reason for barron catheter: Strict I&O Subjective Ms. Em is a 69 years old right-handed female with a history of hypertension, diabetes, the patient came to the hospital on 07/20/2024 with a chief come of shortness of breath. At this time, she was intubated sedated, on pressor drip, responds to stroke painful stimuli, history is obtained from chart review I saw on 12/20/2016 for ALOC (UTI, hypotension) I have seen and examined the patient, I have discussed with her nurse, she is intubated, slight responds to painful stimuli. Both pupils are very small, but dilated after painful stimuli and gag reflexes, left-sided slightly bigger Levo, 1 mcg/minutes On 07/20/2024, the patient developed nausea, vomiting, diarrhea and abdominal pain, on arrival to the scene, EMS personnel noticed shortness breath and her pulse ox was 70% at 6 L/m oxygen, but mentally she was fine on initial examination, but later she become weak, apneic and nonresponsive, she was back on the way to the ER, and she was intubated in the ER On 07/23/2024, the patient was noticed to have unequal pupil size with left slightly bigger, per my observation, the left pupil is slightly bigger, 1 mm and 1.5 mm, the left pupil is surgical, and there is minimal light reflexes in both pupils UDS, 07/21/2024: Negative Plasma alcohol, 07/20/2024: <3 Urinalysis, : WBC: 15, urine leukocyte esterase: Negative Blood culture, 07/20/2024: E coli Respiratory culture, 07/20/2024: E coli ABG, 07/20/2024: Acidosis WBC/Hb/PLT, 07/23/2024: 3.1/10.4/104/98 PT/INR/PTT, 07/20/2024: 15.1/1.48/ BUNs/CR, 07/20/2024: 78/7.58, 07/22/2024: 19/8.21, 07/23/2024: 64/6.3 Lactic acid, 07/08/2024, 4.3, 3.6 Total bilirubin/AST/ALT/AP, 07/22/2024: 1/73/18/157 TG/HDL/LDL/HDL, 07/20/2024: 232/167/75/27 Vitamin B12, 12/2016:1069, 12/22/16: >2000 Folic acid, 12/2016:10.79 TSH, 12/2016:0.69 EEG, 12/21/16: Normal Carotid Doppler, 07/21/2024: Very limited examination. Unable to evaluate the left carotid system and unable to visualize the right common carotid artery. The degree of carotid stenosis can not be determined on this examination. Findings in the visualized portions of the right carotid system as described above Echocardiogram, 07/22/2024: GLOBAL PERICARDIAL EFFUSION IN RANGE OF 1.0 TO 1.5 CM IN WIDTH NO RV COLLAPSE NO EVIDENCE OF PERICARDIAL TAMPONADE DILATED ALL CARDIAC CHAMBERS AND ARE HYPOKINETIC LV EF IS 30% AND IS MODERATELY REDUCED MODERATELY DILATED RV AND IS HYPOKINETIC NORMAL VALVES Chest, 07/20/2024: Patient has a pericardial effusion which could cause tamponade I recommend cardiac echo. There is a large consolidate involving the right lower lobe and there is pulmonary vascular congestion as well ( Endotracheal tube is below the clavicles just above the aortic arch) Chest x-ray, 07/23/2024: Increasing congestive heart failure. CT head, 07/20/2024: No acute intracranial abnormality vital signs Vital Sign Date Time Temp Pulse Resp B/P (MAP) Pulse Ox O2 Delivery O2 Flow Rate FiO2 07/24/24 08:11 83 16 123/65 (84) 93 30 07/24/24 06:45 98.6 209.5 07/24/24 06:00 Mechanical Ventilator+ 07/23/24 04:00 Total Intake and Output 07/23/24 07/23/24 07/24/24 15:00 23:00 07:00 Intake Total 182.75 ml 180.25 ml 131.25 ml Balance 182.75 ml 180.25 ml 131.25 ml medications Current Medications Medications Dose Ordered Sig/Camacho Route Start Time Stop Time Status Last Admin Dose Admin Norepinephrine Bitartrate 250 ml @ 3.75 mls/hr Q24H IV 07/20/24 21:15 07/22/24 21:35 3.75 MLS/HR Pantoprazole Sodium 40 mg DAILY IV 07/21/24 10:00 07/23/24 11:21 40 MG Heparin Sodium (Porcine) 5,000 units Q12HR SC 07/21/24 10:00 07/23/24 22:01 5,000 UNITS Vancomycin HCl 0 ml @ 0 mls/hr UD IV 07/21/24 02:15 Midazolam HCl 50 ml @ 1 mls/hr Q24H IV 07/21/24 03:45 07/23/24 15:05 3 MLS/HR Fentanyl Citrate 250 ml @ 2.5 mls/hr Q24H IV 07/21/24 03:45 07/23/24 09:34 7.5 MLS/HR Diagnostic Test (Pha) 1 strip Q6HR 07/21/24 18:00 07/24/24 06:15 1 STRIP Insulin Human Regular Q6HR SC 07/21/24 18:00 07/23/24 06:37 2 UNITS Dextrose 50 ml UD PRN IV 07/21/24 15:00 07/21/24 19:04 50 ML Piperacillin Sod/ Tazobactam Sod 50 ml @ 12.5 mls/hr Q8HR IV 07/21/24 22:00 07/24/24 06:15 12.5 MLS/HR Enteral Nutritional Formula 1,000 ml 30ML/HR GT 07/23/24 16:45 Mupirocin 1 applic BID EACHNOSTRI 07/23/24 22:00 07/28/24 21:59 objective The patient is well-nourished and well-developed with no distress. The patient is intubated MENTAL STATUS: Subjective CRANIAL NERVES: Pupils are slightly reactive, left pupil is slightly bigger and is s/pt surgery.There are corneal reflexes and doll's eyes phenomenon. No signs of facial weakness. There are gagging or coughing reflexes. There is no abnormal vascular dilatation, skin secretion in face SENSATION: Slightly responses to pain stimuli. MOTOR: Normal tone in the upper and lower extremity. Normal muscle bulk. No fasciculations. No spontaneous movement. REFLEXES: Deep tendon reflexes are symmetrical. No pathological reflexes. CEREBELLAR/COORDINATION: Deferred GAIT/STATION: deferred laboratory and microbiology Laboratory Tests 07/24/24 03:12 Test 07/24/24 03:12 Range/Units Serum Glucose 142 H 74-106 mg/dL Problem List Anisocoria with left-sided slightly bigger, uncertain clinical significance Left surgical pupil Altered mental status Hypoxic encephalopathy Metabolic encephalopathy Acute respiratory failure Pneumonia Acidosis, leukocytosis, Sepsis, septic shock ? Diabetic polyneuropathy Rule out other central nervous system pathology Assessment/Plan Monitoring Supportive treatment Follow-up labs ICU care Stabilize vitals/pressor drip Record support/vent management Oxygen IV antibiotics DVT prophylaxis/heparin 5000 units subQ q.12 hours GI prophylaxis/Protonix 40 mg daily Further address possible diabetic polyneuropathy late More recommendation per clinical course This medical document was created using an electronic medical record system with [employer] dictation system. Although this document has been carefully reviewed, there may still be some phonetic and typographical errors. These areas are purely typographical due to imperfections of the software programs, and do not reflect any compromise in the patient's medical care Prognosis poor Dietary Evaluation Review Comments: 1.Consider EN regime nepro@20ml/hr to provide 850 Kcal 39g Protein 349ml Free Water to meet nutritional needs 2.Consider PN regime NPO > 5 days Expected Outcomes/Goals: >75% nutritional intake, labs WNL Plan discussed with: Other Critical Care Time(min): 35 FLORENTINO CLARK MD Jul 24, 2024 08:30
--- NOTE | 2024-07-24 08:47 | DVHPNRES ---
Progress Note Date Seen: Jul 24, 2024 Resident Creating Document: DAGMAR DEL CASTILLO Medical Necessity Reason Pt with a Central, PICC or Fol: Yes The following are medically ne: Central Line, Barron Catheter Reason for barron catheter: Strict I&O Subjective Review of Systems Patient is 69 years old female with past medical history of hypertension, dyslipidemia, diabetes mellitus type 2, COPD on home oxygen [place] O2, ESRD on hemodialysis 3 times per week Tuesday//Tuesday, history of CAD, [place], chronic anemia, history of AV fistula in the left arm, EVAR to thoracic or abdominal aorta(evidence in CT scan) was brought to the hospital due to cough and nausea and vomiting. Patient had productive cough with yellow phlegm, nausea and vomiting and diarrhea and abdominal pain before patient came in. On arrival patient had altered level of consciousness, became unresponsive, [place] coma score was 3/15, required emergency endotracheal intubation. Patient was previously admitted at [facility] in June 08, 2024, April 22, 2024, March 29 2017, December 19, 2016. Most recent hospitalization was due to malfunction of the AV fistula along with dizziness, at the time patient was on home oxygen 4 liter/minute. On her previous admission Dr. Massey, interventional radiologist attempted to fix non functioning AV fistula 06/11/2024 but patient refused repeatedly and requested to be discharged home. Was also admitted on 22/04/24 due to intractable nausea and vomiting and abdominal pain. Patient was found to have right basilic DVT, possible ischemic colitis likely due to fluid overload.. Echo on 04/26/2024 revealed LVEF 50%, moderate pericardial effusion.Moderate to severely elevated right ventricular systolic pressure at 57 mm of mercury. Moderate mitral valve and tricuspid valve regurgitation. Discharged with a diagnosis of pulmonary edema, suspected cardiogenic shock. Admission initial lab workup revealed leukocytosis with WBC 11.6, increased anion gap 18, elevated creatinine 7.58, BUN 78, Troponin I 170> 146> 141, BNP > 5000 HGB A1c 7.1, lactic acidosis with lactic acid 4.3 elevated serum bilirubin 1.2, elevated AST 59 ALT 20, elevated> alkaline phosphatase 218, triglyceride 232, cholesterol 167, LDL 75, HDL 27. UDS negative. Influenza type a and B, SARS COVID negative. Urinalysis negative for UTI. Initial ABG revealed ABG 7.31, pCO2 43.6, PO2 83.2, bicarbonate 21.8. Initial CT Head scan revealed no acute intracranial abnormality. CXR revealed- Moderate cardiomegaly. Prominent interstitial markings bilaterally. Small bilateral pleural effusions with superimposed infection not excluded no pneumothorax. CT chest, Abdomen and Pelvis revealed-Findings consistent with fluid overload state which include cardiomegaly, pericardial effusion, pleural effusions, ascites, and anasarca. Scattered consolidations throughout the bilateral lungs. Moderate periportal edema which has a broad differential that includes viral hepatitis or acute cholangitis x-ray on 07/20/2024 revealed-Patient has a pericardial effusion which could cause tamponade I recommend cardiac echo. There is a large consolidate involving the right lower lobe and there is pulmonary vascular congestion as well. Carotid Doppler on 07/21/2024 revealed- Very limited examination. Unable to evaluate the left carotid system and unable to visualize the right common carotid artery. The degree of carotid stenosis can not be determined on this examination. Findings in the visualized portions of the right carotid system as described above. Single organ ultrasound on 07/21/2024 revealed-No gallstones or sludge.Nonspecific thickened/ edematous appearance to the gallbladder wall. May be related to 3rd spacing. Echo 2D on 07/22/2024 revealed LVEF 30%, moderately reduced, moderately dilated RV, hypokinetic, global pericardial effusion, in range of 1-1.5 cm. Dilated all cardiac chambers and are hypokinetic. Blood culture on 07/20/2024 revealed E coli. Respiratory culture on 0 07/20/24 also grew E coli. Urine culture no growth. MRSA screening positive. Repeat Blood culture on 07/22/24 shows no growth. Past medical history: Hypertension, dyslipidemia, diabetes, COPD with no home oxygen requirement, ESRD with requirement of the hemodialysis 3 times per week, ME, chronic anemia, Surgical history: AV fistula of left arm, EVAR to thoracic/abdominal aorta (evidence in CT scan) Family history: Unobtainable Social history: Lives with caregiver. Denies current tobacco, alcohol and other drug abuse Allergies: Hydrocodone, morphine Home medication: Carvedilol, spironolactone, vitamin-D, captopril, yeast Patient's planning associate Dr. Roge Choi Patient was seen today for clinical evaluation. Lebs than chart reviewed. Lab revealed Patient's leukocytosis resolving, hemodynamically stable, platelets trending down. Ongoing mild hyponatremia likely dilusional, sustained increased anion gap, substance elevated serum creatinine likely due to ESRD. Acidosis resolved. WBC trending down> 11.6> 8.2> 17.6> 13.1> 8.6 hemoglobin 12.8> 11.8> 10.4> 10.2 Platelet 225> 165> 154> 104> 79-trending down Sodium 134>> 132> 132> 132 potassium> 4.2> 3.7>> 4.1> 3.6> 3.8 Anion gap> 18> 17> 16> 13> 16 Serum creatinine 7.58> 7.28> 8.21> 6.30> 6.75> 6.83 BUN> 78> 74 >90> 64> 69 > AST 59> 46> 73 >43 Alkaline phosphatase 218> 153>> 157 >136 Patient still on mechanical ventilation. Patient on antibiotic vancomycin and piperacillin/tazobactam/Zosyn Blood culture on 07/20/2024 revealed E coli. Respiratory culture on 07/20/24 also grew E coli. Urine culture no growth. MRSA screening positive. Review Blood culture on 07/22 shows no growth. Patient was seen by Cardiology Dr. Francisca Choi, recommendation reviewed and appreciated Patient was seen by construction site crossing guard Jonas Ramon, recommendation reviewed and appreciated Patient was seen by neurologist Andrea Stratton on 07/23/2024. Recommendation reviewed and appreciated Plan is due to a CPAP trial tomorrow a.m. Provider called and talked to patient's brother Garrison [phone], discussed patient's current medical condition, plan of care and answered his questions Objective vital signs Vital Sign Date Time Temp Pulse Resp B/P (MAP) Pulse Ox O2 Delivery O2 Flow Rate FiO2 07/24/24 06:45 98.6 83 16 124/62 (82) 97 209.5 07/24/24 06:38 30 07/24/24 06:00 Mechanical Ventilator+ 07/23/24 04:00 Total Intake and Output 07/23/24 07/23/24 07/24/24 15:00 23:00 07:00 Intake Total 182.75 ml 180.25 ml 131.25 ml Balance 182.75 ml 180.25 ml 131.25 ml medications Current Medications Medications Dose Ordered Sig/Camacho Route Start Time Stop Time Status Last Admin Dose Admin Norepinephrine Bitartrate 250 ml @ 3.75 mls/hr Q24H IV 07/20/24 21:15 07/22/24 21:35 3.75 MLS/HR Pantoprazole Sodium 40 mg DAILY IV 07/21/24 10:00 07/23/24 11:21 40 MG Heparin Sodium (Porcine) 5,000 units Q12HR SC 07/21/24 10:00 07/23/24 22:01 5,000 UNITS Vancomycin HCl 0 ml @ 0 mls/hr UD IV 07/21/24 02:15 Midazolam HCl 50 ml @ 1 mls/hr Q24H IV 07/21/24 03:45 07/23/24 15:05 3 MLS/HR Fentanyl Citrate 250 ml @ 2.5 mls/hr Q24H IV 07/21/24 03:45 07/23/24 09:34 7.5 MLS/HR Diagnostic Test (Pha) 1 strip Q6HR 07/21/24 18:00 07/24/24 06:15 1 STRIP Insulin Human Regular Q6HR SC 07/21/24 18:00 07/23/24 06:37 2 UNITS Dextrose 50 ml UD PRN IV 07/21/24 15:00 07/21/24 19:04 50 ML Piperacillin Sod/ Tazobactam Sod 50 ml @ 12.5 mls/hr Q8HR IV 07/21/24 22:00 07/24/24 06:15 12.5 MLS/HR Enteral Nutritional Formula 1,000 ml 30ML/HR GT 07/23/24 16:45 Mupirocin 1 applic BID EACHNOSTRI 07/23/24 22:00 07/28/24 21:59 Examination General examination- patient on mechanical ventilation, sedation HEENT- PEERLA, no acute nasal discharge Cardiovascular- S1-S2 audible, rate and rhythm regular, no murmur Respiratory- CTAB, no wheeze or rhonchi Gastrointestinal-nontender, bowel sound+. Nondistended Musculoskeletal-no acute joint swelling or tenderness or redness# Lower extremity- Neurological- cranial nerves intact, no acute dysarthria or dysphagia Psychiatry- denies depression or SI or HI Skin- no acute rash or purpura laboratory and microbiology Laboratory Tests 07/24/24 03:12 Test 07/24/24 03:12 Range/Units Serum Glucose Pending Microbiology Date/Time Source Procedure Growth Status 07/22/24 15:49 Blood Blood Culture - Preliminary NO GROWTH AFTER 24 HOURS OF INCUBATION. Resulted 07/22/24 01:47 Nose MRSA Screen - Final Complete 07/21/24 12:40 Voided Urine Urine Culture - Final Complete 07/20/24 21:29 Sputum Gram Stain - Final Complete 07/20/24 21:29 Respiratory Culture - Final Escherichia coli Complete Problem List/Assessment/Plan Problem List/Assessment/Plan Assessment and plan Neurology Metabolic encephalopathy/uremic encephalopathy/hypoxic encephalopathy Patient on mechanical ventilation, on sedation Continue current management - avoid dehydration and nephrotoxic drugs Cardiovascular Septic shock Acute heart failure HFrEF, EF-30%. NSTEMI type 2 demand lead ischemia Acute pulmonary edema likely due to volume overload Pericardial effusion, recurrent -Status post EVAR to thoracic / abdominal aorta Anasarca Suspected cardiac tamponade - Echo 2D on 10/22/2024 revealed LVEF 30%, moderately reduced, moderately dilated RV, hypokinetic, global pericardial effusion, in range of 1-1.5 cm. Dilated all cardiac chambers and are hypokinetic -continue current management Respiratory Acute hypoxic respiratory failure due to acute pulmonary edema/volume overload Bilateral pleural effusion -suspected acute exertional COPD Suspected pneumonia Gram-positive versus Gram-negative B/L Lower lung consolidation Pleural effusion - Blood culture on 07/20/2024 revealed E coli. Respiratory culture on 07/20/24 also grew E coli. MRSA screening positive -continue ceftriaxone 2 g IV daily -mupirocin as prescribed Gastroenterology -suspected viral hepatitis/cholangitis -ascites -transaminitis -continue pantoprazole 40 mg IV daily Genitourinary/renal -ESRD on HD -fluid overload likely due to ESRD -dehydration and nephrotoxic drugs Hemato oncology --anemia of chronic disease -thrombocytopenia - discontinue heparin due to thrombocytopenia -leukocytosi Infectious -septic shock -leukocytosis -pneumonia Gram-positive versus Gram-negative - Blood culture on 07/20/2024 revealed E coli. Respiratory culture on 07/20/24 also grew E coli. MRSA screening positive -continue ceftriaxone 2 g IV daily -mupirocin as prescribed Endocrine/metabolic disorder Metabolic acidosis Lactic acidosis Dilutional hyponatremia Diabetes mellitus type 2 -hyperlipidemia -malnutrition Skin/alimentary Drips -Levophed, midazolam, fentanyl Lines- ETT- Barron's catheter- Goals of care/advance care planning Code status ; discussed with the patient >15 minutes PUD prophylaxis: Pantoprazole DVT prophylaxis: Discontinued heparin due to thrombocytopenia Plan discussed with Dr. Galeas , nursing staff, Garrison () Total time spent on patient evaluation, chart review, assessment and plan, total critical time spent including monitoring mechanical ventilation 84 minutes: Plan discussed with: Other (Brother GARRISON , RN) Dietary Evaluation Review Comments: 1.Consider EN regime nepro@20ml/hr to provide 850 Kcal 39g Protein 349ml Free Water to meet nutritional needs 2.Consider PN regime NPO > 5 days Expected Outcomes/Goals: >75% nutritional intake, labs WNL Date of Service: Jul 25, 2024 Billing Provider: JOSIANE GALEAS MD Common Visit Codes: 00974-HPRUSHSP CARE 30-74 MIN, 50289-QGMRCGTM CARE-EACH +30MIN DAGMAR DEL CASTILLO RESIDENT Jul 24, 2024 08:46 JOSIANE GALEAS MD Jul 25, 2024 14:20
--- NOTE | 2024-07-24 10:49 | MEDREC ---
[facility] Intervention Section I [facility] Intervention: Deescalate AB based on CS (PLEASE CONSIDER DE-ESCALATION BASED ON CULTURE RESULTS ) MUNDO HURTADO PHARMACIST Jul 24, 2024 10:49
[2024-07-24] MEDS: ALBUMIN 25% 100 ML IV SCH (11:00)
--- NOTE | 2024-07-24 11:43 | DVH ---
EXAM: XY CHEST PORTABLE Indication: PT INTUBATED Technique: Frontal view of the chest. Comparison: XY CHEST PORTABLE on DOS: 07/23/24, XY CHEST PORTABLE on DOS: 07/22/24, XY CHEST XRAY 1 VIE W on DOS: 07/20/24, XY CHEST XRAY 1 VIEW on DOS: 07/20/24, XY CHEST PORTABLE on DOS: 05/03/24, XY CHEST PORTABLE on DOS: 07/23/24 FINDINGS: LUNGS AND PLEURAL SPACES: Increasing congestive heart failure. No consolidation. No pneumothorax. HEART: Unremarkable. No cardiomegaly. MEDIASTINUM: Unremarkable. Normal mediastinal contour. BONES/JOINTS: Unremarkable. No acute fracture. TUBES, LINES AND DEVICES: Stable tubes and lines. OTHER FINDINGS: . IMPRESSION: No significant change compared to prior exam.
--- NOTE | 2024-07-24 12:49 | DVH ---
Bilateral Lower Extremity Arterial Duplex Clinical History: PAD Comparison: None Technique: Duplex Doppler evaluation including color Doppler and spectral/pulsed waveform analysis of the lower extremity arteries was performed. Findings: RIGHT: Peak systolic velocities are as follows: HADOOP ARCHITECT 156 cm/s Deep femoral 135 cm/s SFA proximal 58 cm/s SFA mid-portion 58 cm/s SFA distal 15 cm/s Popliteal 46 cm/s Posterior tibial 23 cm/s Anterior tibial 18 cm/s Dorsalis pedis 18 cm/s The waveforms are monophasic with diastolic flow. LEFT: Peak systolic velocities are as follows: HADOOP ARCHITECT 116 cm/s Deep femoral 99 cm/s SFA proximal 105 cm/s SFA mid-portion 62 cm/s SFA distal 69 cm/s Popliteal 79 cm/s Posterior tibial 41 cm/s Anterior tibial 101 cm/s Dorsalis pedis 11 cm/s The waveforms are monophasic with diastolic flow. IMPRESSION: 20-49% stenosis of the right common femoral artery based on peak systolic velocity criteria. No hemodynamically significant stenosis based on peak systolic velocity criteria on the left. Bilateral abnormal monophasic arterial waveforms suggest underlying peripheral arterial disease. REFERENCE VALUES, [facility] ([facility]) vascular Imaging Lab Criteria: Peak systolic velocity ranges (in cm/sec) are as follows: <150 cm/s - <20 % stenosis 150-200 cm/s - 20-49% stenosis 200-300 cm/s - 50-75% stenosis >300 cm/s -> 75% stenosis
[2024-07-24] MEDS: SODIUM CHL 0.9% 1000 ML BAG XX ONE (14:18)
--- NOTE | 2024-07-24 16:10 | DVHPN2 ---
Progress Note - Dictate Date Seen: Jul 24, 2024 Medical Necessity Reason Pt with a Central, PICC or Fol: Yes The following are medically ne: Central Line, Barron Catheter Reason for barron catheter: Strict I&O Subjective Patient was seen and evaluated in follow up in ICU. Chart/events reviewed. Patient remains sedated, intubated on mechanical ventilator support. FiO2 is 35%. Bilateral lower extremity arterial duplex reported 20-49% stenosis of the right common femoral artery; no hemodynamically significant stenosis-- additional findings per report. Patient received dialysis today. vital signs Vital Sign Date Time Temp Pulse Resp B/P (MAP) Pulse Ox O2 Delivery O2 Flow Rate FiO2 07/24/24 14:30 98.2 85 16 90/46 (61) 94 208.8 07/24/24 14:05 30 07/24/24 14:00 Mechanical Ventilator+ 07/23/24 04:00 Total Intake and Output 07/23/24 07/23/24 07/24/24 15:00 23:00 07:00 Intake Total 182.75 ml 180.25 ml 138.50 ml Balance 182.75 ml 180.25 ml 138.50 ml medications Current Medications Medications Dose Ordered Sig/Camacho Route Start Time Stop Time Status Last Admin Dose Admin Norepinephrine Bitartrate 250 ml @ 3.75 mls/hr Q24H IV 07/20/24 21:15 07/22/24 21:35 3.75 MLS/HR Pantoprazole Sodium 40 mg DAILY IV 07/21/24 10:00 07/24/24 10:19 40 MG Vancomycin HCl 0 ml @ 0 mls/hr UD IV 07/21/24 02:15 Midazolam HCl 50 ml @ 1 mls/hr Q24H IV 07/21/24 03:45 07/23/24 15:05 3 MLS/HR Fentanyl Citrate 250 ml @ 2.5 mls/hr Q24H IV 07/21/24 03:45 07/23/24 09:34 7.5 MLS/HR Diagnostic Test (Pha) 1 strip Q6HR 07/21/24 18:00 07/24/24 12:00 1 STRIP Insulin Human Regular Q6HR SC 07/21/24 18:00 07/23/24 06:37 2 UNITS Dextrose 50 ml UD PRN IV 07/21/24 15:00 07/21/24 19:04 50 ML Enteral Nutritional Formula 1,000 ml 30ML/HR GT 07/23/24 16:45 Mupirocin 1 applic BID EACHNOSTRI 07/23/24 22:00 07/28/24 21:59 07/24/24 10:19 1 APPLIC Ceftriaxone Sodium/Dextrose 50 ml @ 50 mls/hr DAILY IV 07/25/24 10:00 Dexmedetomidine HCl 400 mcg/ Dextrose 100 ml @ 2.31 mls/hr Q24H IV 07/24/24 16:00 UNV objective Vitals and nursing notes reviewed. General appearance: Ill-appearing, in no acute distress. HEENT: Normocephalic, atraumatic. PERRLA, minimal light reflexes in both pupils Neck: Supple, no bruits Chest: Intubated. Breath sounds rales/rhonchi. Heart: Regular rate; no murmur or gallop Abdomen: Soft, nontender, nondistended Musculoskeletal: No clubbing, no cyanosis, trace lower extremity edema Skin: Warm, moist. Neurological: Sedated laboratory and microbiology Laboratory Tests 07/24/24 03:12 Test 07/24/24 03:12 Range/Units Serum Glucose 142 H 74-106 mg/dL Problem List Metabolic encephalopathy secondary to sepsis Acute respiratory failure Cardiorenal syndrome type 3 ESRD on hemodialysis Pericardial effusion Anasarca NSTEMI Transaminitis Normocytic anemia Diabetes - uncontrolled (hemoglobin A1c 7.1%) Hypertension Dyslipidemia Assessment/Plan Agree with current supportive medical care. Cardiology and vent/respiratory care management deferred. Neurology following. Vasopressors for hemodynamic support prn. HD- 07/24- UF 1L. IV antibiotics. Dextrose 10% 1,000mL at 25 mL/hr q24h. GI / DVT prophylaxis. Nutritional support. [employer] consulted. Additional plan as per the hospital course. Dietary Evaluation Review Comments: 1.Consider EN regime nepro@20ml/hr to provide 850 Kcal 39g Protein 349ml Free Water to meet nutritional needs 2.Consider PN regime NPO > 5 days Expected Outcomes/Goals: >75% nutritional intake, labs WNL Plan discussed with: Other (RN) JOSE LUIS SMITH DO Jul 24, 2024 16:10
[2024-07-24] MEDS ORDERED: VANCOMYCIN 500mg/100mL 100 ML IV ONE (20:00)
[2024-07-24] MEDS: NOREPINEPHRINE 8 MG/250ML KIT 250 ML IV SCH (20:15)
--- NOTE | 2024-07-24 21:57 | DVHPN2 ---
Progress Note - Dictate Date Seen: Jul 24, 2024 Medical Necessity Reason Pt with a Central, PICC or Fol: Yes The following are medically ne: Central Line, Barron Catheter Reason for barron catheter: Strict I&O Subjective Patient was seen and evaluated in follow up in the ICU. Patient is intubated and sedated on ventilator. 35% FiO2. Patient remains on vasopressors Bilateral lower extremity arterial duplex reported 20-49% stenosis of the right common femoral artery. There is no hemodynamically significant stenosis. BUN 69, Insight Director 6.83. vital signs Vital Sign Date Time Temp Pulse Resp B/P (MAP) Pulse Ox O2 Delivery O2 Flow Rate FiO2 07/24/24 20:15 152/71 07/24/24 20:15 99.1 85 16 98 210.4 07/24/24 20:12 30 07/24/24 20:00 Mechanical Ventilator+ 07/23/24 04:00 Total Intake and Output 07/23/24 07/23/24 07/24/24 15:00 23:00 07:00 Intake Total 182.75 ml 180.25 ml 138.50 ml Balance 182.75 ml 180.25 ml 138.50 ml medications Current Medications Medications Dose Ordered Sig/Camacho Route Start Time Stop Time Status Last Admin Dose Admin Pantoprazole Sodium 40 mg DAILY IV 07/21/24 10:00 07/24/24 10:19 40 MG Vancomycin HCl 0 ml @ 0 mls/hr UD IV 07/21/24 02:15 Midazolam HCl 50 ml @ 1 mls/hr Q24H IV 07/21/24 03:45 07/23/24 15:05 3 MLS/HR Fentanyl Citrate 250 ml @ 2.5 mls/hr Q24H IV 07/21/24 03:45 07/23/24 09:34 7.5 MLS/HR Diagnostic Test (Pha) 1 strip Q6HR 07/21/24 18:00 07/24/24 18:08 1 STRIP Insulin Human Regular Q6HR SC 07/21/24 18:00 07/23/24 06:37 2 UNITS Dextrose 50 ml UD PRN IV 07/21/24 15:00 07/21/24 19:04 50 ML Enteral Nutritional Formula 1,000 ml 30ML/HR GT 07/23/24 16:45 Mupirocin 1 applic BID EACHNOSTRI 07/23/24 22:00 07/28/24 21:59 07/24/24 10:19 1 APPLIC Ceftriaxone Sodium/Dextrose 50 ml @ 50 mls/hr DAILY IV 07/25/24 10:00 Dexmedetomidine HCl 400 mcg/ Dextrose 100 ml @ 2.31 mls/hr Q24H IV 07/24/24 16:00 07/24/24 18:07 2.31 MLS/HR Norepinephrine Bitartrate 250 ml @ 1.875 mls/ hr Q24H IV 07/24/24 20:15 objective GENERAL: Ill appearing, intubated on ventilator. LUNGS: Decreased breath sounds. CARDIOVASCULAR: Heart sounds are good. ABDOMEN: Soft. EXT: BLE edema. laboratory and microbiology Laboratory Tests 07/24/24 03:12 Test 07/24/24 03:12 Range/Units Serum Glucose 142 H 74-106 mg/dL Problem List NSTEMI likely type 2 [place]. Acute on chronic HFpEF. Acute hypoxic respiratory failure. Pericardial effusion, recurrent. Sepsis, suspected pneumonia. HTN. HLD. 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 ESRD on HD. HLD. Gram-negative bacteremia. Diabetes mellitus type 2. Assessment/Plan Continued all current supportive medical care. Vasopressors for hemodynamic support. GI prophylactics. IV antibiotics as ordered. Additional plan as per the hospital course. Critical care time of 45 minutes provided to include time spent evaluation of patient at bedside, when appropriate patient/family education for diagnosis, treatment plan, review of pertinent medical information and discussion of care with specialty providers and PCP. Mechanical ventilator parameters, treatment and adjustments have personally been reviewed by me and treatment plan by glue wheel operator has also been reviewed. Dietary Evaluation Review Comments: 1.Consider EN regime nepro@20ml/hr to provide 850 Kcal 39g Protein 349ml Free Water to meet nutritional needs 2.Consider PN regime NPO > 5 days Expected Outcomes/Goals: >75% nutritional intake, labs WNL Plan discussed with: Other DEWEY SMITH MD Jul 24, 2024 21:57
[2024-07-25] VITALS (107 sets, daily range): BP systolic 112–170; BP diastolic 46–67; PULSE 62–85; RESP 16–21; TEMP 97.5–99.3; O2SAT 87–100
[2024-07-25 03:48] LABS: Basophils # (auto) 0 10 ^3/uL (0-0.2); Basophils % (auto) 0.6 % (0.0-2.0); Eosinophils # (auto) 0.2 10 ^3/uL (0-0.8); Eosinophils % (auto) 3.8 % (0.0-7.0); Hematocrit 29.2 % (36.0-46.0); Hemoglobin 9.8 g/dL (12.2-16.2); Lymphocytes # (auto) 0.4 10 ^3/uL (0.4-5.4); Lymphocytes % (auto) 8.2 % (10.0-50.0); Mean Corpuscular Hemoglobin 32.9 pg (28.0-32.0); Mean Corpuscular Hgb Conc. 33.5 g/dL (32.0-36.0); Monocytes # (auto) 0.6 10 ^3/uL (0-1.3); Monocytes % (auto) 10.2 % (0.0-12.0); Neutrophils # (auto) 4.2 10 ^3/uL (1.6-8.6); Neutrophils % (auto) 77.2 % (37.0-80.0); Nucleated Red Blood Cells % 0.2 %; Platelet Count (auto) 54 10^3/uL (140-450); Red Blood Cells 2.98 10^6/uL (4.0-5.20); Red Cell Distribution Width 15.4 % (11.8-14.3); White Blood Cell 5.5 10^3/uL (4.4-10.8)
[2024-07-25 04:05] LABS: Alanine Aminotransferase 12 U/L (7-40); Anion Gap 11 (5-15); Aspartate Aminotransferase 28 U/L (13-40); BUN/Creatinine Ratio 8.8 (10.0-20.0); Calcium 8.8 mg/dL (8.7-10.4); Carbon Dioxide 26 mmol/L (20-31); Chloride 99 mmol/L (98-107); Glucose 79 mg/dL (74-106); Potassium 3.5 mmol/L (3.5-5.1); Sodium 136 mmol/L (136-145)
[2024-07-25 04:13] LABS: Albumin 2.8 g/dL (3.2-4.8); Alkaline Phosphatase 122 U/L (46-116); Bilirubin, Total 1.7 mg/dL (0.2-1.0); Blood Urea Nitrogen 44 mg/dL (9-23); Total Protein 5.1 g/dL (5.7-8.2)
--- NOTE | 2024-07-25 05:13 | DVH ---
EXAM: XR Chest, 1 View CLINICAL INDICATION: PNA/CHF TECHNIQUE: Frontal view of the chest. COMPARISON: XY CHEST PORTABLE on DOS: 07/24/24, XY CHEST PORTABLE on DOS: 07/23/24, XY CHEST PORTABLE on DOS: 07/22/24, XY CHEST XRAY 1 VIEW on DOS: 07/20/24, XY CHEST XRAY 1 VIEW on DOS: 07/20/24 FINDINGS: LUNGS AND PLEURAL SPACES: See below. HEART: Cardiomegaly with pulmonary congestion and edema. Superimposed pneumonia cannot be excluded. MEDIASTINUM: Unremarkable. Normal mediastinal contour. BONES/JOINTS: Unremarkable. No acute fracture. TUBES, LINES AND DEVICES: The endotracheal tube (ETT) is in satisfactory position. Left internal j ugular central venous catheter tip in the superior vena cava. OTHER FINDINGS: . .. IMPRESSION: Cardiomegaly with pulmonary congestion and edema. Superimposed pneumonia cannot be excluded.
[2024-07-25 07:52] LABS: Base Excess -1.3 mmol/L (-2.0-3.0)
--- NOTE | 2024-07-25 09:23 | DVH ---
EXAM: XY CHEST PORTABLE Indication: pain PNA Technique: Single frontal view of the chest was obtained Comparison: XY CHEST PORTABLE on DOS: 07/25/24, XY CHEST PORTABLE on DOS: 07/24/24, XY CHEST PORTABLE o n DOS: 07/23/24, XY CHEST PORTABLE on DOS: 07/22/24, XY CHEST XRAY 1 VIEW on DOS: 07/20/24 FINDINGS: Lines and Tubes: Endotracheal tube projects 3 cm above the [place]. Enteric tube tip projects over th e expected region of the stomach. Left internal jugular central venous catheter tip projects over the superior vena cava. Lungs: Diffuse interstitial opacities. Pleura: Trace left pleural effusion. No pneumothorax. Cardiomediastinal contours: Cardiomegaly. Bones: No acute osseous abnormality. IMPRESSION: Cardiomegaly with pulmonary edema and trace left pleural effusion.
[2024-07-25] MEDS: cefTRIAXone 2GM/50ML D5W 50 ML IV SCH (10:02)
--- NOTE | 2024-07-25 10:42 | DVHPN2 ---
Progress Note - Dictate Date Seen: Jul 25, 2024 Medical Necessity Reason Pt with a Central, PICC or Fol: Yes The following are medically ne: Central Line, Barron Catheter Reason for barron catheter: Strict I&O Subjective Ms. Em is a 69 years old right-handed female with a history of hypertension, diabetes, the patient came to the hospital on 07/20/2024 with a chief come of shortness of breath. At this time, she was intubated sedated, on pressor drip, responds to stroke painful stimuli, history is obtained from chart review I saw on 12/20/2016 for ALOC (UTI, hypotension) I have seen and examined the patient, I have discussed with her nurse, she is intubated, she was respond to verbal stimuli, but no following, she does not move the extremities. The pupil was bigger than yesterday, but with very sluggish light reflexes She is not on sedation UDS, 07/21/2024: Negative Plasma alcohol, 07/20/2024: <3 Urinalysis, 03: WBC: 15, urine leukocyte esterase: Negative Blood culture, 07/20/2024: E coli Respiratory culture, 07/20/2024: E coli ABG, 07/20/2024: Acidosis WBC/Hb/PLT, 07/23/2024: 3.1/10.4/104/98 PT/INR/PTT, 07/20/2024: 15.1/1.48/ BUNs/CR, 07/20/2024: 78/7.58, 07/22/2024: 19/8.21, 07/23/2024: 64/6.3 Lactic acid, 07/08/2024, 4.3, 3.6 Total bilirubin/AST/ALT/AP, 07/22/2024: 1/73/18/157 TG/HDL/LDL/HDL, 07/20/2024: 232/167/75/27 Vitamin B12, 12/2016:1069, 12/22/16: >2000 Folic acid, 12/2016:10.79 TSH, 12/2016:0.69 EEG, 12/21/16: Normal Carotid Doppler, 07/21/2024: Very limited examination. Unable to evaluate the left carotid system and unable to visualize the right common carotid artery. The degree of carotid stenosis can not be determined on this examination. Findings in the visualized portions of the right carotid system as described above Arterial Doppler, legs, 07/24/2024: 20-49% stenosis of the right common femoral artery based on peak systolic velocity criteria. No hemodynamically significant stenosis based on peak systolic velocity criteria on the left. Bilateral abnormal monophasic arterial waveforms suggest underlying peripheral arterial disea Echocardiogram, 07/22/2024: GLOBAL PERICARDIAL EFFUSION IN RANGE OF 1.0 TO 1.5 CM IN WIDTH NO RV COLLAPSE NO EVIDENCE OF PERICARDIAL TAMPONADE DILATED ALL CARDIAC CHAMBERS AND ARE HYPOKINETIC LV EF IS 30% AND IS MODERATELY REDUCED MODERATELY DILATED RV AND IS HYPOKINETIC NORMAL VALVES Chest, 07/20/2024: Patient has a pericardial effusion which could cause tamponade I recommend cardiac echo. There is a large consolidate involving the right lower lobe and there is pulmonary vascular congestion as well ( Endotracheal tube is below the clavicles just above the aortic arch) Chest x-ray, 07/23/2024: Increasing congestive heart failure. CT head, 07/20/2024: No acute intracranial abnormality vital signs Vital Sign Date Time Temp Pulse Resp B/P (MAP) Pulse Ox O2 Delivery O2 Flow Rate FiO2 07/25/24 09:15 98.6 81 16 158/59 (92) 97 209.5 07/25/24 08:04 30 07/25/24 08:00 Mechanical Ventilator+ Total Intake and Output 07/24/24 07/24/24 07/25/24 15:00 23:00 07:00 Intake Total 127.250 ml 20.055 ml 60 ml Balance 127.250 ml 20.055 ml 60 ml medications Current Medications Medications Dose Ordered Sig/Camacho Route Start Time Stop Time Status Last Admin Dose Admin Pantoprazole Sodium 40 mg DAILY IV 07/21/24 10:00 07/25/24 10:02 40 MG Vancomycin HCl 0 ml @ 0 mls/hr UD IV 07/21/24 02:15 Midazolam HCl 50 ml @ 1 mls/hr Q24H IV 07/21/24 03:45 07/23/24 15:05 3 MLS/HR Fentanyl Citrate 250 ml @ 2.5 mls/hr Q24H IV 07/21/24 03:45 07/23/24 09:34 7.5 MLS/HR Diagnostic Test (Pha) 1 strip Q6HR 07/21/24 18:00 07/25/24 06:00 1 STRIP Insulin Human Regular Q6HR SC 07/21/24 18:00 07/23/24 06:37 2 UNITS Dextrose 50 ml UD PRN IV 07/21/24 15:00 07/21/24 19:04 50 ML Enteral Nutritional Formula 1,000 ml 30ML/HR GT 07/23/24 16:45 Mupirocin 1 applic BID EACHNOSTRI 07/23/24 22:00 07/28/24 21:59 07/25/24 10:02 1 APPLIC Ceftriaxone Sodium/Dextrose 50 ml @ 50 mls/hr DAILY IV 07/25/24 10:00 07/25/24 10:02 50 MLS/HR Dexmedetomidine HCl 400 mcg/ Dextrose 100 ml @ 2.31 mls/hr Q24H IV 07/24/24 16:00 07/24/24 18:07 2.31 MLS/HR Norepinephrine Bitartrate 250 ml @ 1.875 mls/ hr Q24H IV 07/24/24 20:15 objective The patient is well-nourished and well-developed with no distress. The patient is intubated MENTAL STATUS: Subjective CRANIAL NERVES: Pupils are slightly reactive, left pupil is slightly bigger and is s/pt surgery.There are corneal reflexes and doll's eyes phenomenon. No signs of facial weakness. There are gagging or coughing reflexes. There is no abnormal vascular dilatation, skin secretion in face SENSATION: Slightly responses to pain stimuli. MOTOR: Normal tone in the upper and lower extremity. Normal muscle bulk. No fasciculations. No spontaneous movement. REFLEXES: Deep tendon reflexes are symmetrical. No pathological reflexes. CEREBELLAR/COORDINATION: Deferred GAIT/STATION: deferred laboratory and microbiology Laboratory Tests 07/25/24 03:30 Test 07/25/24 03:30 Range/Units Serum Glucose 79 74-106 mg/dL Problem List Anisocoria with left-sided slightly bigger, uncertain clinical significance Left surgical pupil Altered mental status Hypoxic encephalopathy Metabolic encephalopathy Acute respiratory failure Pneumonia Acidosis, leukocytosis, Sepsis, septic shock ? Diabetic polyneuropathy Rule out other central nervous system pathology She is improving, but overall still very weak Assessment/Plan Monitoring Supportive treatment Follow-up labs ICU care Stabilize vitals/pressor drip Record support/vent management Oxygen IV antibiotics DVT prophylaxis/heparin 5000 units subQ q.12 hours GI prophylaxis/Protonix 40 mg daily Further address possible diabetic polyneuropathy late More recommendation per clinical course This medical document was created using an electronic medical record system with [employer] dictation system. Although this document has been carefully reviewed, there may still be some phonetic and typographical errors. These areas are purely typographical due to imperfections of the software programs, and do not reflect any compromise in the patient's medical care Prognosis guarded Dietary Evaluation Review Comments: 1.Consider EN regime nepro@20ml/hr to provide 850 Kcal 39g Protein 349ml Free Water to meet nutritional needs 2.Consider PN regime NPO > 5 days Expected Outcomes/Goals: >75% nutritional intake, labs WNL Plan discussed with: Other Critical Care Time(min): 30 FLORENTINO CLARK MD Jul 25, 2024 10:42
--- NOTE | 2024-07-25 12:50 | ECG ---
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
[2024-07-25] MEDS: DEXMEDETOMIDINE HCL IN D5W 100 ML IV SCH (14:15)
[2024-07-25] MEDS: VANCOMYCIN 500mg/100mL 100 ML IV ONE (14:39)
--- NOTE | 2024-07-25 15:50 | DVHPN2 ---
Progress Note - Dictate Date Seen: Jul 25, 2024 Medical Necessity Reason Pt with a Central, PICC or Fol: Yes The following are medically ne: Central Line, Barron Catheter Reason for barron catheter: Strict I&O Subjective Patient was seen and evaluated in follow up in the ICU. Patient is intubated on ventilator. 30% FiO2. Patient receiving vasopressors for hemodynamic support. Patient is responsive to verbal stimuli however does not visually follow or move upper or lower extremities. Patient's pupils are significantly larger than yesterday. Patient failed CPAP trial this morning due to becoming apneic. HGB 9.8, HCT 29.2, BUN 44, REGISTER OF WILLS 4.99. Chest x-ray shows cardiomegaly with pulmonary edema and trace left pleural effusion. vital signs Vital Sign Date Time Temp Pulse Resp B/P (MAP) Pulse Ox O2 Delivery O2 Flow Rate FiO2 07/25/24 13:00 97.9 68 16 145/56 (85) 97 208.2 07/25/24 12:00 30 07/25/24 12:00 Mechanical Ventilator+ Total Intake and Output 07/24/24 07/24/24 07/25/24 15:00 23:00 07:00 Intake Total 127.250 ml 20.055 ml 60 ml Balance 127.250 ml 20.055 ml 60 ml medications Current Medications Medications Dose Ordered Sig/Camacho Route Start Time Stop Time Status Last Admin Dose Admin Pantoprazole Sodium 40 mg DAILY IV 07/21/24 10:00 07/25/24 10:02 40 MG Vancomycin HCl 0 ml @ 0 mls/hr UD IV 07/21/24 02:15 Midazolam HCl 50 ml @ 1 mls/hr Q24H IV 07/21/24 03:45 07/23/24 15:05 3 MLS/HR Fentanyl Citrate 250 ml @ 2.5 mls/hr Q24H IV 07/21/24 03:45 07/23/24 09:34 7.5 MLS/HR Diagnostic Test (Pha) 1 strip Q6HR 07/21/24 18:00 07/25/24 12:05 1 STRIP Insulin Human Regular Q6HR SC 07/21/24 18:00 07/23/24 06:37 2 UNITS Dextrose 50 ml UD PRN IV 07/21/24 15:00 07/21/24 19:04 50 ML Enteral Nutritional Formula 1,000 ml 30ML/HR GT 07/23/24 16:45 Mupirocin 1 applic BID EACHNOSTRI 07/23/24 22:00 07/28/24 21:59 07/25/24 10:02 1 APPLIC Ceftriaxone Sodium/Dextrose 50 ml @ 50 mls/hr DAILY IV 07/25/24 10:00 07/25/24 10:02 50 MLS/HR Dexmedetomidine HCl 400 mcg/ Dextrose 100 ml @ 2.31 mls/hr Q24H IV 07/24/24 16:00 07/24/24 18:07 2.31 MLS/HR Norepinephrine Bitartrate 250 ml @ 1.875 mls/ hr Q24H IV 07/24/24 20:15 objective GENERAL: Ill appearing, intubated on ventilator. LUNGS: Decreased breath sounds. CARDIOVASCULAR: Heart sounds are good. ABDOMEN: Soft. EXT: BLE edema. laboratory and microbiology Laboratory Tests 07/25/24 03:30 Test 07/25/24 03:30 Range/Units Serum Glucose 79 74-106 mg/dL Problem List NSTEMI likely type 2 CO. Acute on chronic HFpEF. Acute hypoxic respiratory failure. Pericardial effusion, recurrent. Sepsis, suspected pneumonia. HTN. HLD. 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 ESRD on HD. HLD. Gram-negative bacteremia. Diabetes mellitus type 2. Assessment/Plan Continued all current supportive medical care. Vasopressors for hemodynamic support. GI prophylactics. IV antibiotics as ordered. Additional plan as per the hospital course. Critical care time of 45 minutes provided to include time spent evaluation of patient at bedside, when appropriate patient/family education for diagnosis, treatment plan, review of pertinent medical information and discussion of care with specialty providers and PCP. Mechanical ventilator parameters, treatment and adjustments have personally been reviewed by me and treatment plan by plastic surgeon has also been reviewed. Dietary Evaluation Review Comments: 1.Consider EN regime nepro@20ml/hr to provide 850 Kcal 39g Protein 349ml Free Water to meet nutritional needs 2.Consider PN regime NPO > 5 days Expected Outcomes/Goals: >75% nutritional intake, labs WNL Plan discussed with: Other DEWEY SMITH MD Jul 25, 2024 13:28
[2024-07-25] MEDS: Nepro With Carb Steady 1 Liter Bottle GT SCH (16:50)
--- NOTE | 2024-07-25 16:59 | DVHPNRES ---
Progress Note Date Seen: Jul 25, 2024 Resident Creating Document: DAGMAR DEL CASTILLO Medical Necessity Reason Pt with a Central, PICC or Fol: Yes The following are medically ne: Central Line, Abrron Catheter Reason for barron catheter: Strict I&O Subjective Review of Systems Patient is 69 years old female with past medical history of hypertension, dyslipidemia, diabetes mellitus type 2, COPD on home oxygen [place] O2, ESRD on hemodialysis 3 times per week Tuesday//Tuesday, history of CAD, [place], chronic anemia, history of AV fistula in the left arm, EVAR to thoracic or abdominal aorta(evidence in CT scan) was brought to the hospital due to cough and nausea and vomiting. Patient had productive cough with yellow phlegm, nausea and vomiting and diarrhea and abdominal pain before patient came in. On arrival patient had altered level of consciousness, became unresponsive, [place] coma score was 3/15, required emergency endotracheal intubation. Patient was previously admitted at [facility] in June 08, 2024, April 22, 2024, March 29 2017, December 19, 2016. Most recent hospitalization was due to malfunction of the AV fistula along with dizziness, at the time patient was on home oxygen 4 liter/minute. On her previous admission Dr. Massey, interventional radiologist attempted to fix non functioning AV fistula 06/11/2024 but patient refused repeatedly and requested to be discharged home. Was also admitted on 22/04/24 due to intractable nausea and vomiting and abdominal pain. Patient was found to have right basilic DVT, possible ischemic colitis likely due to fluid overload.. Echo on 04/26/2024 revealed LVEF 50%, moderate pericardial effusion.Moderate to severely elevated right ventricular systolic pressure at 57 mm of mercury. Moderate mitral valve and tricuspid valve regurgitation. Discharged with a diagnosis of pulmonary edema, suspected cardiogenic shock. Admission initial lab workup revealed leukocytosis with WBC 11.6, increased anion gap 18, elevated creatinine 7.58, BUN 78, Troponin I 170> 146> 141, BNP > 5000 HGB A1c 7.1, lactic acidosis with lactic acid 4.3 elevated serum bilirubin 1.2, elevated AST 59 ALT 20, elevated> alkaline phosphatase 218, triglyceride 232, cholesterol 167, LDL 75, HDL 27. UDS negative. Influenza type a and B, SARS COVID negative. Urinalysis negative for UTI. Initial ABG revealed ABG 7.31, pCO2 43.6, PO2 83.2, bicarbonate 21.8. Initial CT Head scan revealed no acute intracranial abnormality. CXR revealed- Moderate cardiomegaly. Prominent interstitial markings bilaterally. Small bilateral pleural effusions with superimposed infection not excluded no pneumothorax. CT chest, Abdomen and Pelvis revealed-Findings consistent with fluid overload state which include cardiomegaly, pericardial effusion, pleural effusions, ascites, and anasarca. Scattered consolidations throughout the bilateral lungs. Moderate periportal edema which has a broad differential that includes viral hepatitis or acute cholangitis x-ray on 07/20/2024 revealed-Patient has a pericardial effusion which could cause tamponade I recommend cardiac echo. There is a large consolidate involving the right lower lobe and there is pulmonary vascular congestion as well. Carotid Doppler on 07/21/2024 revealed- Very limited examination. Unable to evaluate the left carotid system and unable to visualize the right common carotid artery. The degree of carotid stenosis can not be determined on this examination. Findings in the visualized portions of the right carotid system as described above. Single organ ultrasound on 07/21/2024 revealed-No gallstones or sludge.Nonspecific thickened/ edematous appearance to the gallbladder wall. May be related to 3rd spacing. Echo 2D on 07/22/2024 revealed LVEF 30%, moderately reduced, moderately dilated RV, hypokinetic, global pericardial effusion, in range of 1-1.5 cm. Dilated all cardiac chambers and are hypokinetic. Blood culture on 07/20/2024 revealed E coli. Respiratory culture on 0 07/20/24 also grew E coli. Urine culture no growth. MRSA screening positive. Repeat Blood culture on 07/22/24 shows no growth. Patient was seen today for clinical evaluation. Labs than chart reviewed. All sedatives taken off, even after that patient did not wake up enough to do a CPAP trial Plan is to do a CPAP trial after hemodialysis tomorrow a.m. Patient's leukocytosis resolving, hemodynamically stable, platelets trending down. Ongoing mild hyponatremia likely dilusional, sustained increased anion gap, substance elevated serum creatinine likely due to ESRD. Acidosis resolved. WBC trending > 11.6> 8.2> 17.6> 13.1> 8.6> 5.5 hemoglobin 12.8> 11.8> 10.4> 10.2> 9.8 Platelet 225> 165> 154> 104> 79> 54-trending down Sodium 134>> 132> 132> 132> 136 potassium> 4.2> 3.7>> 4.1> 3.6> 3.8> 3.5 Anion gap> 18> 17> 16> 13> 16 Serum creatinine 7.58> 7.28> 8.21> 6.30> 6.75> 6.83> 4.99 BUN> 78> 74 >90> 64> 69> 44 > AST 59> 46> 73 >43 Alkaline phosphatase 218> 153>> 157 >136 Cardiology reviewed and appreciated./ Patient still on mechanical ventilation. Patient on antibiotic vancomycin and piperacillin/tazobactam/Zosyn Blood culture on 07/20/2024 revealed E coli. Respiratory culture on 07/20/24 also grew E coli. Urine culture no growth. MRSA screening positive. Repeat Blood culture on 07/22/24 shows no growth. Provider called and talked to patient's brother Roland [phone], discussed patient's current medical condition, plan of care and answered his questions Objective vital signs Vital Sign Date Time Temp Pulse Resp B/P (MAP) Pulse Ox O2 Delivery O2 Flow Rate FiO2 07/25/24 16:03 79 16 115/47 (69) 100 30 07/25/24 16:00 Mechanical Ventilator+ 07/25/24 15:00 98.2 208.8 Total Intake and Output 07/24/24 07/24/24 07/25/24 14:59 22:59 06:59 Intake Total 30.125 ml 124.430 ml 60 ml Balance 30.125 ml 124.430 ml 60 ml medications Current Medications Medications Dose Ordered Sig/Camacho Route Start Time Stop Time Status Last Admin Dose Admin Pantoprazole Sodium 40 mg DAILY IV 07/21/24 10:00 07/25/24 10:02 40 MG Vancomycin HCl 0 ml @ 0 mls/hr UD IV 07/21/24 02:15 Midazolam HCl 50 ml @ 1 mls/hr Q24H IV 07/21/24 03:45 07/23/24 15:05 3 MLS/HR Fentanyl Citrate 250 ml @ 2.5 mls/hr Q24H IV 07/21/24 03:45 07/23/24 09:34 7.5 MLS/HR Diagnostic Test (Pha) 1 strip Q6HR 07/21/24 18:00 07/25/24 12:05 1 STRIP Insulin Human Regular Q6HR SC 07/21/24 18:00 07/23/24 06:37 2 UNITS Dextrose 50 ml UD PRN IV 07/21/24 15:00 07/21/24 19:04 50 ML Enteral Nutritional Formula 1,000 ml 30ML/HR GT 07/23/24 16:45 Mupirocin 1 applic BID EACHNOSTRI 07/23/24 22:00 07/28/24 21:59 07/25/24 10:02 1 APPLIC Ceftriaxone Sodium/Dextrose 50 ml @ 50 mls/hr DAILY IV 07/25/24 10:00 07/25/24 10:02 50 MLS/HR Norepinephrine Bitartrate 250 ml @ 1.875 mls/ hr Q24H IV 07/24/24 20:15 Examination General examination- patient on mechanical ventilation, sedation, sacral wound present HEENT- PEERLA, no acute nasal discharge Cardiovascular- S1-S2 audible, rate and rhythm regular, no murmur Respiratory- CTAB, no wheeze or rhonchi Gastrointestinal-nontender, bowel sound+. Nondistended Musculoskeletal-no acute joint swelling or tenderness or redness Lower extremity- no leg edema Neurological- cranial nerves intact, no acute dysarthria or dysphagia Skin- no acute rash or purpura laboratory and microbiology Laboratory Tests 07/25/24 03:30 Test 07/25/24 03:30 Range/Units Serum Glucose 79 74-106 mg/dL Microbiology Date/Time Source Procedure Growth Status 07/22/24 15:49 Blood Blood Culture - Preliminary NO GROWTH AFTER 72 HOURS OF INCUBATION. Resulted 07/22/24 01:47 Nose MRSA Screen - Final Complete 07/21/24 12:40 Voided Urine Urine Culture - Final Complete 07/20/24 21:29 Sputum Gram Stain - Final Complete 07/20/24 21:29 Respiratory Culture - Final Escherichia coli Complete Problem List/Assessment/Plan Problem List/Assessment/Plan Assessment and plan Neurology Metabolic encephalopathy/uremic encephalopathy/hypoxic encephalopathy Patient on mechanical ventilation, on sedation Continue current management - avoid dehydration and nephrotoxic drugs Cardiovascular Septic shock Acute heart failure HFrEF, EF-30%. NSTEMI type 2 demand lead ischemia Acute pulmonary edema likely due to volume overload Pericardial effusion, recurrent -Status post EVAR to thoracic / abdominal aorta Anasarca Suspected cardiac tamponade -H/O HTN, - HLD - Echo 2D on 10/22/2024 revealed LVEF 30%, moderately reduced, moderately dilated RV, hypokinetic, global pericardial effusion, in range of 1-1.5 cm. Dilated all cardiac chambers and are hypokinetic -continue current management Respiratory Acute hypoxic respiratory failure due to acute pulmonary edema/volume overload Bilateral pleural effusion -suspected acute exertional COPD Suspected pneumonia Gram-positive versus Gram-negative B/L Lower lung consolidation Pleural effusion - Blood culture on 07/20/2024 revealed E coli. Respiratory culture on 07/20/24 also grew E coli. -repeat blood culture on 07/22/2024 preliminary report no growth MRSA screening positive -continue ceftriaxone 2 g IV daily -mupirocin as prescribed Gastroenterology -suspected viral hepatitis/cholangitis -ascites -transaminitis -continue pantoprazole 40 mg IV daily Genitourinary/renal -ESRD on HD -fluid overload likely due to ESRD -dehydration and nephrotoxic drugs Hemato oncology --anemia of chronic disease -thrombocytopenia - discontinue heparin due to thrombocytopenia -leukocytosi Infectious -septic shock -leukocytosis -pneumonia Gram-positive versus Gram-negative - Blood culture on 07/20/2024 revealed E coli. Respiratory culture on 07/20/24 also grew E coli. -blood culture on 0 07/22/24 preliminary reports no growth MRSA screening positive -urine culture negative -continue ceftriaxone 2 g IV daily -mupirocin as prescribed Endocrine/metabolic disorder Metabolic acidosis Lactic acidosis Dilutional hyponatremia Diabetes mellitus type 2 -hyperlipidemia -malnutrition Skin/alimentary Drips - Lines- ETT- Goals of care/advance care planning Code status ; discussed >15 minutes PUD prophylaxis: Pantoprazole DVT prophylaxis: Discontinued heparin due to thrombocytopenia Plan discussed with Dr. Galeas , nursing staff, Roland () Total time spent on patient evaluation, chart review, assessment and plan, total critical time spent including monitoring mechanical ventilation 83 minutes: Plan discussed with: Other (Jacquier Roland, RN) My Orders My Orders Orders - DAGMAR DEL CASTILLO RESIDENT Procedure Category Date Status Time Chest Portable XY 07/24/24 Resulted 17:00 Abg W/ Co-Ox RT 07/25/24 Logged 06:00 Chest Portable XY 07/25/24 Resulted 08:12 Dietary Evaluation Review Comments: 1.Consider EN regime nepro@20ml/hr to provide 850 Kcal 39g Protein 349ml Free Water to meet nutritional needs 2.Consider PN regime NPO > 5 days Expected Outcomes/Goals: >75% nutritional intake, labs WNL Date of Service: Jul 25, 2024 Billing Provider: JOSIANE GALEAS MD Common Visit Codes: 01029-[id number] CARE 30-74 MIN, [id number] CARE-EACH +30MIN DAGMAR DEL CASTILLO RESIDENT Jul 25, 2024 16:59 JOSIANE GALEAS MD Jul 26, 2024 10:59
--- NOTE | 2024-07-25 18:58 | DVHPN2 ---
Progress Note - Dictate Date Seen: Jul 25, 2024 Medical Necessity Reason Pt with a Central, PICC or Fol: Yes The following are medically ne: Central Line, Barron Catheter Reason for barron catheter: Strict I&O Subjective Patient was seen and evaluated in follow up in ICU. Chart/events reviewed. Patient remains intubated on mechanical ventilator support. FiO2 is 30%. Off sedation. Patient is responsive to verbal stimuli however does not visually follow or move extremities. Failed CPAP trial this morning. Follow up Chest x- ray shows cardiomegaly with pulmonary edema and trace left pleural effusion. Repeat blood cultures on 07/22/24 shows no growth. vital signs Vital Sign Date Time Temp Pulse Resp B/P (MAP) Pulse Ox O2 Delivery O2 Flow Rate FiO2 07/25/24 18:31 76 16 130/56 (80) 97 30 07/25/24 18:00 Mechanical Ventilator+ 07/25/24 18:00 98.6 209.5 Total Intake and Output 07/24/24 07/24/24 07/25/24 15:00 23:00 07:00 Intake Total 127.250 ml 40.055 ml 60 ml Balance 127.250 ml 40.055 ml 60 ml medications Current Medications Medications Dose Ordered Sig/Camacho Route Start Time Stop Time Status Last Admin Dose Admin Pantoprazole Sodium 40 mg DAILY IV 07/21/24 10:00 07/25/24 10:02 40 MG Vancomycin HCl 0 ml @ 0 mls/hr UD IV 07/21/24 02:15 Midazolam HCl 50 ml @ 1 mls/hr Q24H IV 07/21/24 03:45 07/23/24 15:05 3 MLS/HR Fentanyl Citrate 250 ml @ 2.5 mls/hr Q24H IV 07/21/24 03:45 07/23/24 09:34 7.5 MLS/HR Diagnostic Test (Pha) 1 strip Q6HR 07/21/24 18:00 07/25/24 12:05 1 STRIP Insulin Human Regular Q6HR SC 07/21/24 18:00 07/23/24 06:37 2 UNITS Dextrose 50 ml UD PRN IV 07/21/24 15:00 07/21/24 19:04 50 ML Enteral Nutritional Formula 1,000 ml 30ML/HR GT 07/23/24 16:45 07/25/24 16:50 1,000 ML Mupirocin 1 applic BID EACHNOSTRI 07/23/24 22:00 07/28/24 21:59 07/25/24 10:02 1 APPLIC Ceftriaxone Sodium/Dextrose 50 ml @ 50 mls/hr DAILY IV 07/25/24 10:00 07/25/24 10:02 50 MLS/HR Norepinephrine Bitartrate 250 ml @ 1.875 mls/ hr Q24H IV 07/24/24 20:15 Lorazepam 1 mg Q4HP PRN IV 07/25/24 17:00 objective Vitals and nursing notes reviewed. General appearance: Ill-appearing, in no acute distress. HEENT: Normocephalic, atraumatic. Chest: Intubated. Breath sounds rales/rhonchi. Heart: Regular rate; no murmur or gallop Abdomen: Soft, nontender, nondistended Musculoskeletal: No clubbing, no cyanosis, trace lower extremity edema Skin: Warm, moist. Neurological: Off sedation. Unable to assess. laboratory and microbiology Laboratory Tests 07/25/24 03:30 Test 07/25/24 03:30 Range/Units Serum Glucose 79 74-106 mg/dL Problem List Metabolic encephalopathy secondary to sepsis Acute respiratory failure Cardiorenal syndrome type 3 ESRD on hemodialysis Pericardial effusion Anasarca NSTEMI Transaminitis Normocytic anemia Diabetes - uncontrolled (hemoglobin A1c 7.1%) Hypertension Dyslipidemia Assessment/Plan Agree with current supportive medical care. HD- 07/26- attempt to schedule treatment in AM. Cardiology and vent/respiratory care management deferred. CPAP trial planned tomorrow after dialysis. Neurology following. Vasopressors for hemodynamic support prn. IV antibiotics. GI / DVT prophylaxis. Nutritional support. Research Geneticist consulted. Additional plan as per the hospital course. Dietary Evaluation Review Comments: 1.Consider EN regime nepro@20ml/hr to provide 850 Kcal 39g Protein 349ml Free Water to meet nutritional needs 2.Consider PN regime NPO > 5 days Expected Outcomes/Goals: >75% nutritional intake, labs WNL Plan discussed with: Other (RN) JOSE LUIS SMITH DO Jul 25, 2024 18:58
[2024-07-26] VITALS (110 sets, daily range): BP systolic 87–191; BP diastolic 39–84; PULSE 71–132; RESP 13–38; TEMP 97.3–99.7; O2SAT 92–100
[2024-07-26 04:00] LABS: Basophils # (auto) 0 10 ^3/uL (0-0.2); Lymphocytes # (auto) 0.4 10 ^3/uL (0.4-5.4); Nucleated Red Blood Cells % 0.1 %
[2024-07-26 04:02] LABS: Anion Gap 15 (5-15); Carbon Dioxide 22 mmol/L (20-31); Potassium 3.7 mmol/L (3.5-5.1)
[2024-07-26 04:03] LABS: Basophils % (auto) 0.6 % (0.0-2.0); Eosinophils # (auto) 0.1 10 ^3/uL (0-0.8); Eosinophils % (auto) 2.2 % (0.0-7.0); Hematocrit 30.2 % (36.0-46.0); Hemoglobin 10.2 g/dL (12.2-16.2); Lymphocytes % (auto) 6.9 % (10.0-50.0); Mean Corpuscular Hemoglobin 33.7 pg (28.0-32.0); Mean Corpuscular Hgb Conc. 33.8 g/dL (32.0-36.0); Mean Corpuscular Volume 99.6 fL (80.0-100.0); Monocytes # (auto) 0.3 10 ^3/uL (0-1.3); Monocytes % (auto) 5.6 % (0.0-12.0); Neutrophils % (auto) 84.7 % (37.0-80.0); Platelet Count (auto) 72 10^3/uL (140-450); Red Blood Cells 3.03 10^6/uL (4.0-5.20); White Blood Cell 5.9 10^3/uL (4.4-10.8)
[2024-07-26 04:09] LABS: Blood Urea Nitrogen 52 mg/dL (9-23); Chloride 98 mmol/L (98-107); Glucose 121 mg/dL (74-106); Sodium 135 mmol/L (136-145)
--- NOTE | 2024-07-26 07:23 | DVHPNRES ---
Progress Note Date Seen: Jul 26, 2024 Resident Creating Document: DAGMAR DEL CASTILLO Medical Necessity Reason Pt with a Central, PICC or Fol: Yes The following are medically ne: Central Line, Barron Catheter Reason for barron catheter: Strict I&O Subjective Review of Systems Patient is 69 years old female with past medical history of hypertension, dyslipidemia, diabetes mellitus type 2, COPD on home oxygen [place] O2, ESRD on hemodialysis 3 times per week Tuesday//Tuesday, history of CAD, CO, chronic anemia, history of AV fistula in the left arm, EVAR to thoracic or abdominal aorta(evidence in CT scan) was brought to the hospital due to cough and nausea and vomiting. Patient had productive cough with yellow phlegm, nausea and vomiting and diarrhea and abdominal pain before patient came in. On arrival patient had altered level of consciousness, became unresponsive, [place] coma score was 3/15, required emergency endotracheal intubation. Patient was previously admitted at [facility] in June 08, 2024, April 22, 2024, March 29 2017, December 19, 2016. Most recent hospitalization was due to malfunction of the AV fistula along with dizziness, at the time patient was on home oxygen 4 liter/minute. On her previous admission Dr. Massey, interventional radiologist attempted to fix non functioning AV fistula 06/11/2024 but patient refused repeatedly and requested to be discharged home. Was also admitted on 22/04/24 due to intractable nausea and vomiting and abdominal pain. Patient was found to have right basilic DVT, possible ischemic colitis likely due to fluid overload.. Echo on 04/26/2024 revealed LVEF 50%, moderate pericardial effusion.Moderate to severely elevated right ventricular systolic pressure at 57 mm of mercury. Moderate mitral valve and tricuspid valve regurgitation. Discharged with a diagnosis of pulmonary edema, suspected cardiogenic shock. Admission initial lab workup revealed leukocytosis with WBC 11.6, increased anion gap 18, elevated creatinine 7.58, BUN 78, Troponin I 170> 146> 141, BNP > 5000 HGB A1c 7.1, lactic acidosis with lactic acid 4.3 elevated serum bilirubin 1.2, elevated AST 59 ALT 20, elevated> alkaline phosphatase 218, triglyceride 232, cholesterol 167, LDL 75, HDL 27. UDS negative. Influenza type a and B, SARS COVID negative. Urinalysis negative for UTI. Initial ABG revealed ABG 7.31, pCO2 43.6, PO2 83.2, bicarbonate 21.8. Initial CT Head scan revealed no acute intracranial abnormality. CXR revealed- Moderate cardiomegaly. Prominent interstitial markings bilaterally. Small bilateral pleural effusions with superimposed infection not excluded no pneumothorax. CT chest, Abdomen and Pelvis revealed-Findings consistent with fluid overload state which include cardiomegaly, pericardial effusion, pleural effusions, ascites, and anasarca. Scattered consolidations throughout the bilateral lungs. Moderate periportal edema which has a broad differential that includes viral hepatitis or acute cholangitis x-ray on 07/20/2024 revealed-Patient has a pericardial effusion which could cause tamponade I recommend cardiac echo. There is a large consolidate involving the right lower lobe and there is pulmonary vascular congestion as well. Carotid Doppler on 07/21/2024 revealed- Very limited examination. Unable to evaluate the left carotid system and unable to visualize the right common carotid artery. The degree of carotid stenosis can not be determined on this examination. Findings in the visualized portions of the right carotid system as described above. Single organ ultrasound on 07/21/2024 revealed-No gallstones or sludge.Nonspecific thickened/ edematous appearance to the gallbladder wall. May be related to 3rd spacing. Echo 2D on 07/22/2024 revealed LVEF 30%, moderately reduced, moderately dilated RV, hypokinetic, global pericardial effusion, in range of 1-1.5 cm. Dilated all cardiac chambers and are hypokinetic. Blood culture on 07/20/2024 revealed E coli. Respiratory culture on 0 07/20/24 also grew E coli. Urine culture no growth. MRSA screening positive. Repeat Blood culture on 07/22/24 shows no growth. Patient was seen today for clinical evaluation. Labs than chart reviewed. Overnight patient's BP ranging from 120-148/53 -70, pulse 70-100, temperature-98.6-99.0 I/O- positive balance 155 Patient had hemodialysis today Failed CPAP trial today WBC trending > 11.6> 8.2> 17.6> 13.1> 8.6> 5.5> 5.9 hemoglobin 12.8> 11.8> 10.4> 10.2> 9.8> 10.2 Platelet 225> 165> 154> 104> 79> 54> 72 Sodium 134>> 132> 132> 132> 136> 135 potassium> 4.2> 3.7>> 4.1> 3.6> 3.8> 3.5> 3.7 Anion gap> 18> 17> 16> 13> 16> 15 Serum creatinine 7.58> 7.28> 8.21> 6.30> 6.75> 6.83> 4.99> 5.75 BUN> 78> 74 >90> 64> 69> 44 > AST 59> 46> 73 >43 Alkaline phosphatase 218> 153>> 157 >136 Cardiology reviewed and appreciated./ Patient still on mechanical ventilation. Patient on antibiotic ceftriaxone and vancomycin Blood culture on 07/20/2024 revealed E coli. Respiratory culture on 07/20/24 also grew E coli. Urine culture no growth. MRSA screening positive. Repeat Blood culture on 07/22/24 shows no growth. Provider called and talked to patient's brother Roland [phone], discussed patient's current medical condition, plan of care and answered his questions Objective vital signs Vital Sign Date Time Temp Pulse Resp B/P (MAP) Pulse Ox O2 Delivery O2 Flow Rate FiO2 07/26/24 06:45 99.0 80 16 119/53 (75) 93 210.2 07/26/24 06:17 30 07/26/24 06:00 Mechanical Ventilator+ Total Intake and Output 07/25/24 07/25/24 07/26/24 15:00 23:00 07:00 Intake Total 50 ml 20 ml 85 ml Output Total 0 ml 0 ml Balance 50 ml 20 ml 85 ml medications Current Medications Medications Dose Ordered Sig/Camacho Route Start Time Stop Time Status Last Admin Dose Admin Pantoprazole Sodium 40 mg DAILY IV 07/21/24 10:00 07/25/24 10:02 40 MG Vancomycin HCl 0 ml @ 0 mls/hr UD IV 07/21/24 02:15 Midazolam HCl 50 ml @ 1 mls/hr Q24H IV 07/21/24 03:45 07/23/24 15:05 3 MLS/HR Fentanyl Citrate 250 ml @ 2.5 mls/hr Q24H IV 07/21/24 03:45 07/23/24 09:34 7.5 MLS/HR Diagnostic Test (Pha) 1 strip Q6HR 07/21/24 18:00 07/26/24 06:00 1 STRIP Insulin Human Regular Q6HR SC 07/21/24 18:00 07/23/24 06:37 2 UNITS Dextrose 50 ml UD PRN IV 07/21/24 15:00 07/21/24 19:04 50 ML Enteral Nutritional Formula 1,000 ml 30ML/HR GT 07/23/24 16:45 07/25/24 16:50 1,000 ML Mupirocin 1 applic BID EACHNOSTRI 07/23/24 22:00 07/28/24 21:59 07/25/24 22:35 1 APPLIC Ceftriaxone Sodium/Dextrose 50 ml @ 50 mls/hr DAILY IV 07/25/24 10:00 07/25/24 10:02 50 MLS/HR Norepinephrine Bitartrate 250 ml @ 1.875 mls/ hr Q24H IV 07/24/24 20:15 Lorazepam 1 mg Q4HP PRN IV 07/25/24 17:00 Examination General examination- patient on mechanical ventilation, sedation, sacral wound present HEENT- PEERLA, no acute nasal discharge Cardiovascular- S1-S2 audible, rate and rhythm regular, no murmur Respiratory- CTAB, no wheeze or rhonchi Gastrointestinal-nontender, bowel sound+. Nondistended Musculoskeletal-no acute joint swelling or tenderness or redness Lower extremity- no leg edema Neurological- cranial nerves intact, no acute dysarthria or dysphagia Skin- no acute rash or purpura laboratory and microbiology Laboratory Tests 07/26/24 03:40 Test 07/26/24 03:40 Range/Units Serum Glucose 121 H 74-106 mg/dL Microbiology Date/Time Source Procedure Growth Status 07/22/24 15:49 Blood Blood Culture - Preliminary NO GROWTH AFTER 72 HOURS OF INCUBATION. Resulted 07/22/24 01:47 Nose MRSA Screen - Final Complete 07/21/24 12:40 Voided Urine Urine Culture - Final Complete 07/20/24 21:29 Sputum Gram Stain - Final Complete 07/20/24 21:29 Respiratory Culture - Final Escherichia coli Complete Problem List/Assessment/Plan Problem List/Assessment/Plan Assessment and plan Neurology Metabolic encephalopathy/uremic encephalopathy/hypoxic encephalopathy Patient on mechanical ventilation, on sedation Continue current management - avoid dehydration and nephrotoxic drugs Cardiovascular Septic shock Acute heart failure HFrEF, EF-30%. NSTEMI type 2 demand lead ischemia Acute pulmonary edema likely due to volume overload Pericardial effusion, recurrent -Status post EVAR to thoracic / abdominal aorta Anasarca Suspected cardiac tamponade -H/O HTN, - HLD - Echo 2D on 10/22/2024 revealed LVEF 30%, moderately reduced, moderately dilated RV, hypokinetic, global pericardial effusion, in range of 1-1.5 cm. Dilated all cardiac chambers and are hypokinetic -continue current management Respiratory Acute hypoxic respiratory failure due to acute pulmonary edema/volume overload Bilateral pleural effusion -suspected acute exertional COPD Suspected pneumonia Gram-positive versus Gram-negative B/L Lower lung consolidation Pleural effusion - Blood culture on 07/20/2024 revealed E coli. Respiratory culture on 07/20/24 also grew E coli. -repeat blood culture on 07/22/2024 preliminary report no growth MRSA screening positive -continue ceftriaxone and vancomycin as prescribed as prescribed -mupirocin as prescribed Gastroenterology -suspected viral hepatitis/cholangitis -ascites -transaminitis -continue pantoprazole 40 mg IV daily Genitourinary/renal -ESRD on HD -fluid overload likely due to ESRD -dehydration and nephrotoxic drugs Hemato oncology --anemia of chronic disease -thrombocytopenia - discontinue heparin due to thrombocytopenia -leukocytosis -monitor CBC Infectious -septic shock -leukocytosis -pneumonia Gram-positive versus Gram-negative - Blood culture on 07/20/2024 revealed E coli. Respiratory culture on 07/20/24 also grew E coli. -blood culture on 0 07/22/24 preliminary reports no growth MRSA screening positive -urine culture negative -continue ceftriaxone 2 g IV daily -mupirocin as prescribed Endocrine/metabolic disorder Metabolic acidosis Lactic acidosis Dilutional hyponatremia Diabetes mellitus type 2 -hyperlipidemia -malnutrition Skin/alimentary Drips - Lines- ETT- Goals of care/advance care planning Code status ; discussed >15 minutes PUD prophylaxis: Pantoprazole DVT prophylaxis: Discontinued heparin due to thrombocytopenia Plan discussed with Dr. Galeas , nursing staff, Roland (Brother) Total time spent on patient evaluation, chart review, assessment and plan, total critical time spent including monitoring mechanical ventilation 81 minutes: Plan discussed with: Other (brother, RN) My Orders My Orders Orders - DAGMAR DEL CASTILLO RESIDENT Procedure Category Date Status Time Chest Portable XY 07/25/24 Resulted 08:12 Abg W/ Co-Ox RT 07/26/24 Logged 06:00 Dietary Evaluation Review Comments: 1.Consider EN regime nepro@20ml/hr to provide 850 Kcal 39g Protein 349ml Free Water to meet nutritional needs 2.Consider PN regime NPO > 5 days Expected Outcomes/Goals: >75% nutritional intake, labs WNL Date of Service: Jul 26, 2024 Billing Provider: JOSIANE GALEAS MD Common Visit Codes: 78968-TDVDHNDV CARE 30-74 MIN, 99160-ECCQNPQH CARE-EACH +30MIN DAGMAR DEL CASTILLO RESIDENT Jul 26, 2024 07:23 JOSIANE GALEAS MD Jul 29, 2024 12:20
[2024-07-26 07:43] LABS: Base Excess -2.1 mmol/L (-2.0-3.0)
[2024-07-26] MEDS: LORazepam 2MG/ML-1ML VIAL IV PRN (07:58)
--- NOTE | 2024-07-26 10:46 | DVHPN2 ---
Progress Note - Dictate Date Seen: Jul 26, 2024 Medical Necessity Reason Pt with a Central, PICC or Fol: Yes The following are medically ne: Central Line, Barron Catheter Reason for barron catheter: Strict I&O Subjective Ms. Em is a 69 years old right-handed female with a history of hypertension, diabetes, the patient came to the hospital on 07/20/2024 with a chief come of shortness of breath. At this time, she was intubated sedated, on pressor drip, responds to stroke painful stimuli, history is obtained from chart review I saw on 12/20/2016 for ALOC (UTI, hypotension) She received Ativan earlier today because of elevated blood pressure on a regular nursing care I have seen and examined the patient, I have discussed with her nurse, she is intubated, she was respond to touch, but no following, she does not move the extremities. The left pupil is bigger with very sluggish light reflexes UDS, 07/21/2024: Negative Plasma alcohol, 07/20/2024: <3 Urinalysis, 03: WBC: 15, urine leukocyte esterase: Negative Blood culture, 07/20/2024: E coli Respiratory culture, 07/20/2024: E coli ABG, 07/20/2024: Acidosis WBC/Hb/PLT, 07/23/2024: 3.1/10.4/104/98 PT/INR/PTT, 07/20/2024: 15.1/1.48/ BUNs/CR, 07/20/2024: 78/7.58, 07/22/2024: 19/8.21, 07/23/2024: 64/6.3 Lactic acid, 07/08/2024, 4.3, 3.6 Total bilirubin/AST/ALT/AP, 07/22/2024: 1/73/18/157 TG/HDL/LDL/HDL, 07/20/2024: 232/167/75/27 Vitamin B12, 12/2016:1069, 12/22/16: >2000 Folic acid, 12/2016:10.79 TSH, 12/2016:0.69 EEG, 12/21/16: Normal Carotid Doppler, 07/21/2024: Very limited examination. Unable to evaluate the left carotid system and unable to visualize the right common carotid artery. The degree of carotid stenosis can not be determined on this examination. Findings in the visualized portions of the right carotid system as described above Arterial Doppler, legs, 07/24/2024: 20-49% stenosis of the right common femoral artery based on peak systolic velocity criteria. No hemodynamically significant stenosis based on peak systolic velocity criteria on the left. Bilateral abnormal monophasic arterial waveforms suggest underlying peripheral arterial disea Echocardiogram, 07/22/2024: GLOBAL PERICARDIAL EFFUSION IN RANGE OF 1.0 TO 1.5 CM IN WIDTH NO RV COLLAPSE NO EVIDENCE OF PERICARDIAL TAMPONADE DILATED ALL CARDIAC CHAMBERS AND ARE HYPOKINETIC LV EF IS 30% AND IS MODERATELY REDUCED MODERATELY DILATED RV AND IS HYPOKINETIC NORMAL VALVES Chest, 07/20/2024: Patient has a pericardial effusion which could cause tamponade I recommend cardiac echo. There is a large consolidate involving the right lower lobe and there is pulmonary vascular congestion as well ( Endotracheal tube is below the clavicles just above the aortic arch) Chest x-ray, 07/23/2024: Increasing congestive heart failure. CT head, 07/20/2024: No acute intracranial abnormality vital signs Vital Sign Date Time Temp Pulse Resp B/P (MAP) Pulse Ox O2 Delivery O2 Flow Rate FiO2 07/26/24 09:04 92 20 102/48 (66) 100 30 07/26/24 06:45 99.0 210.2 07/26/24 06:00 Mechanical Ventilator+ Total Intake and Output 07/25/24 07/25/24 07/26/24 15:00 23:00 07:00 Intake Total 50 ml 20 ml 85 ml Output Total 0 ml 0 ml Balance 50 ml 20 ml 85 ml medications Current Medications Medications Dose Ordered Sig/Camacho Route Start Time Stop Time Status Last Admin Dose Admin Pantoprazole Sodium 40 mg DAILY IV 07/21/24 10:00 07/25/24 10:02 40 MG Vancomycin HCl 0 ml @ 0 mls/hr UD IV 07/21/24 02:15 Midazolam HCl 50 ml @ 1 mls/hr Q24H IV 07/21/24 03:45 07/23/24 15:05 3 MLS/HR Fentanyl Citrate 250 ml @ 2.5 mls/hr Q24H IV 07/21/24 03:45 07/23/24 09:34 7.5 MLS/HR Diagnostic Test (Pha) 1 strip Q6HR 07/21/24 18:00 07/26/24 06:00 1 STRIP Insulin Human Regular Q6HR SC 07/21/24 18:00 07/23/24 06:37 2 UNITS Dextrose 50 ml UD PRN IV 07/21/24 15:00 07/21/24 19:04 50 ML Enteral Nutritional Formula 1,000 ml 30ML/HR GT 07/23/24 16:45 07/25/24 16:50 1,000 ML Mupirocin 1 applic BID EACHNOSTRI 07/23/24 22:00 07/28/24 21:59 07/25/24 22:35 1 APPLIC Ceftriaxone Sodium/Dextrose 50 ml @ 50 mls/hr DAILY IV 07/25/24 10:00 07/25/24 10:02 50 MLS/HR Norepinephrine Bitartrate 250 ml @ 1.875 mls/ hr Q24H IV 07/24/24 20:15 Lorazepam 1 mg Q4HP PRN IV 07/25/24 17:00 07/26/24 07:58 1 MG objective The patient is well-nourished and well-developed with no distress. The patient is intubated MENTAL STATUS: Subjective CRANIAL NERVES: Pupils are slightly reactive, left pupil is slightly bigger and is s/pt surgery.There are corneal reflexes and doll's eyes phenomenon. No signs of facial weakness. There are gagging or coughing reflexes. There is no abnormal vascular dilatation, skin secretion in face SENSATION: Slightly responses to pain stimuli. MOTOR: Normal tone in the upper and lower extremity. Normal muscle bulk. No fasciculations. No spontaneous movement. REFLEXES: Deep tendon reflexes are symmetrical. No pathological reflexes. CEREBELLAR/COORDINATION: Deferred GAIT/STATION: deferred laboratory and microbiology Laboratory Tests 07/26/24 03:40 Test 07/26/24 03:40 Range/Units Serum Glucose 121 H 74-106 mg/dL Problem List Anisocoria with left-sided slightly bigger, uncertain clinical significance Left surgical pupil Altered mental status Hypoxic encephalopathy Metabolic encephalopathy Acute respiratory failure Pneumonia Acidosis, leukocytosis, Sepsis, septic shock ? Diabetic polyneuropathy Rule out other central nervous system pathology She is improving, but overall still very weak Assessment/Plan Monitoring Supportive treatment Follow-up labs ICU care Stabilize vitals/pressor drip Record support/vent management Oxygen IV antibiotics DVT prophylaxis/heparin 5000 units subQ q.12 hours GI prophylaxis/Protonix 40 mg daily Further address possible diabetic polyneuropathy late More recommendation per clinical course This medical document was created using an electronic medical record system with [employer]ava dictation system. Although this document has been carefully reviewed, there may still be some phonetic and typographical errors. These areas are purely typographical due to imperfections of the software programs, and do not reflect any compromise in the patient's medical care Prognosis guarded Dietary Evaluation Review Comments: 1.Consider EN regime nepro@20ml/hr to provide 850 Kcal 39g Protein 349ml Free Water to meet nutritional needs 2.Consider PN regime NPO > 5 days Expected Outcomes/Goals: >75% nutritional intake, labs WNL Plan discussed with: Other Critical Care Time(min): 30 FLORENTINO CLARK MD Jul 26, 2024 10:46
--- NOTE | 2024-07-26 14:37 | DVH ---
AP portable chest HISTORY: PNA Comparison: XY CHEST PORTABLE on DOS: 07/25/24, XY CHEST PORTABLE on DOS: 07/25/24, XY CHEST PORTABLE o n DOS: 07/24/24 FINDINGS: No change in positioning of the tubes or lines. Heart size is enlarged. Bilateral lower l obe infiltrates or congestive changes IMPRESSION: 1. There has been little change in appearance of the chest compared to previous exam
[2024-07-26 15:15] LABS: Base Excess -0.9 mmol/L (-2.0-3.0)
--- NOTE | 2024-07-26 20:11 | DVHPN2 ---
Progress Note - Dictate Date Seen: Jul 26, 2024 Medical Necessity Reason Pt with a Central, PICC or Fol: Yes The following are medically ne: Central Line, Barron Catheter Reason for barron catheter: Strict I&O Subjective Patient was seen and evaluated in follow up in ICU. Chart/events reviewed. Patient remains intubated on mechanical ventilator support. FiO2 is 30%. Patient is responsive to touch but is not following. Does not move extremities. Blood pressure is trending higher. Patient received dialysis this morning, tolerated well with 1L removed. vital signs Vital Sign Date Time Temp Pulse Resp B/P (MAP) Pulse Ox O2 Delivery O2 Flow Rate FiO2 07/26/24 18:45 98.6 106 20 186/73 (110) 97 209.5 07/26/24 18:14 30 07/26/24 18:00 Mechanical Ventilator+ Total Intake and Output 07/25/24 07/25/24 07/26/24 15:00 23:00 07:00 Intake Total 50 ml 20 ml 85 ml Output Total 0 ml 0 ml Balance 50 ml 20 ml 85 ml medications Current Medications Medications Dose Ordered Sig/Camacho Route Start Time Stop Time Status Last Admin Dose Admin Pantoprazole Sodium 40 mg DAILY IV 07/21/24 10:00 07/26/24 11:22 40 MG Vancomycin HCl 0 ml @ 0 mls/hr UD IV 07/21/24 02:15 Midazolam HCl 50 ml @ 1 mls/hr Q24H IV 07/21/24 03:45 07/23/24 15:05 3 MLS/HR Fentanyl Citrate 250 ml @ 2.5 mls/hr Q24H IV 07/21/24 03:45 07/23/24 09:34 7.5 MLS/HR Diagnostic Test (Pha) 1 strip Q6HR 07/21/24 18:00 07/26/24 18:00 1 STRIP Insulin Human Regular Q6HR SC 07/21/24 18:00 07/23/24 06:37 2 UNITS Dextrose 50 ml UD PRN IV 07/21/24 15:00 07/21/24 19:04 50 ML Enteral Nutritional Formula 1,000 ml 30ML/HR GT 07/23/24 16:45 07/25/24 16:50 1,000 ML Mupirocin 1 applic BID EACHNOSTRI 07/23/24 22:00 07/28/24 21:59 07/26/24 10:00 1 APPLIC Ceftriaxone Sodium/Dextrose 50 ml @ 50 mls/hr DAILY IV 07/25/24 10:00 07/26/24 11:23 50 MLS/HR Norepinephrine Bitartrate 250 ml @ 1.875 mls/ hr Q24H IV 07/24/24 20:15 Lorazepam 1 mg Q4HP PRN IV 07/25/24 17:00 07/26/24 07:58 1 MG Hydralazine HCl 10 mg Q6HP PRN IV 07/26/24 19:00 objective Vitals and nursing notes reviewed. General appearance: Ill-appearing, in no acute distress. HEENT: Normocephalic, atraumatic. Chest: Intubated. Heart: Regular rate; no murmur or gallop Abdomen: Soft, nontender, nondistended Musculoskeletal: No clubbing, no cyanosis, trace lower extremity edema Skin: Warm, moist. Neurological: Off sedation. Unable to assess. laboratory and microbiology Laboratory Tests 07/26/24 03:40 Test 07/26/24 03:40 Range/Units Serum Glucose 121 H 74-106 mg/dL Problem List Metabolic encephalopathy secondary to sepsis Acute respiratory failure Cardiorenal syndrome type 3 ESRD on hemodialysis Pericardial effusion Anasarca NSTEMI Transaminitis Normocytic anemia Diabetes - uncontrolled (hemoglobin A1c 7.1%) Hypertension Dyslipidemia Assessment/Plan Agree with current supportive medical care. Cardiology and vent/respiratory care management deferred. Neurology following. HD- 07/26- UF 1L. Epogen 10,000 u IV x once. Optimization of BP with IV Hydralazine q6h prn. IV antibiotics. GI / DVT prophylaxis. Nutritional support. Compressor Operator Portable consulted. Additional plan as per the hospital course. Dietary Evaluation Review Comments: 1.Consider EN regime nepro@20ml/hr to provide 850 Kcal 39g Protein 349ml Free Water to meet nutritional needs 2.Consider PN regime NPO > 5 days Expected Outcomes/Goals: >75% nutritional intake, labs WNL Plan discussed with: Other (RN) JOSE LUIS SMITH DO Jul 26, 2024 20:11
[2024-07-26] MEDS: hydrALAZINE HCL 20 MG/ML VL IV PRN (21:07)
[2024-07-26] MEDS: EPOETIN ALFA-EPBX 10,000 UNIT/1ML VIAL IV ONE (21:13)
--- NOTE | 2024-07-26 23:41 | DVHPN2 ---
Progress Note - Dictate Date Seen: Jul 26, 2024 Medical Necessity Reason Pt with a Central, PICC or Fol: Yes The following are medically ne: Central Line, Barron Catheter Reason for barron catheter: Strict I&O Subjective Patient was seen and evaluated in follow up in the ICU. Patient is intubated on ventilator. 30% FiO2. Patient receiving vasopressors for hemodynamic support. Patient is responsive to touch but is not following. Does not move extremities. BUN 52, ESOL TEACHER 5.75. vital signs Vital Sign Date Time Temp Pulse Resp B/P (MAP) Pulse Ox O2 Delivery O2 Flow Rate FiO2 07/26/24 11:24 78 20 111/45 (67) 96 30 07/26/24 06:45 99.0 210.2 07/26/24 06:00 Mechanical Ventilator+ Total Intake and Output 07/25/24 07/25/24 07/26/24 15:00 23:00 07:00 Intake Total 50 ml 20 ml 85 ml Output Total 0 ml 0 ml Balance 50 ml 20 ml 85 ml medications Current Medications Medications Dose Ordered Sig/Camacho Route Start Time Stop Time Status Last Admin Dose Admin Pantoprazole Sodium 40 mg DAILY IV 07/21/24 10:00 07/26/24 11:22 40 MG Vancomycin HCl 0 ml @ 0 mls/hr UD IV 07/21/24 02:15 Midazolam HCl 50 ml @ 1 mls/hr Q24H IV 07/21/24 03:45 07/23/24 15:05 3 MLS/HR Fentanyl Citrate 250 ml @ 2.5 mls/hr Q24H IV 07/21/24 03:45 07/23/24 09:34 7.5 MLS/HR Diagnostic Test (Pha) 1 strip Q6HR 07/21/24 18:00 07/26/24 11:25 1 STRIP Insulin Human Regular Q6HR SC 07/21/24 18:00 07/23/24 06:37 2 UNITS Dextrose 50 ml UD PRN IV 07/21/24 15:00 07/21/24 19:04 50 ML Enteral Nutritional Formula 1,000 ml 30ML/HR GT 07/23/24 16:45 07/25/24 16:50 1,000 ML Mupirocin 1 applic BID EACHNOSTRI 07/23/24 22:00 07/28/24 21:59 07/26/24 10:00 1 APPLIC Ceftriaxone Sodium/Dextrose 50 ml @ 50 mls/hr DAILY IV 07/25/24 10:00 07/26/24 11:23 50 MLS/HR Norepinephrine Bitartrate 250 ml @ 1.875 mls/ hr Q24H IV 07/24/24 20:15 Lorazepam 1 mg Q4HP PRN IV 07/25/24 17:00 07/26/24 07:58 1 MG objective GENERAL: Ill appearing, intubated on ventilator. LUNGS: Decreased breath sounds. CARDIOVASCULAR: Heart sounds are good. ABDOMEN: Soft. EXT: BLE edema. laboratory and microbiology Laboratory Tests 07/26/24 03:40 Test 07/26/24 03:40 Range/Units Serum Glucose 121 H 74-106 mg/dL Problem List NSTEMI likely type 2 MD. Acute on chronic HFpEF. Acute hypoxic respiratory failure. Pericardial effusion, recurrent. Sepsis, suspected pneumonia. HTN. HLD. 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 ESRD on HD. HLD. Gram-negative bacteremia. Diabetes mellitus type 2. Assessment/Plan Continued all current supportive medical care. Vasopressors for hemodynamic support. GI prophylactics. IV antibiotics as ordered. Additional plan as per the hospital course. Critical care time of 45 minutes provided to include time spent evaluation of patient at bedside, when appropriate patient/family education for diagnosis, treatment plan, review of pertinent medical information and discussion of care with specialty providers and PCP. Mechanical ventilator parameters, treatment and adjustments have personally been reviewed by me and treatment plan by heel trimmer has also been reviewed. Dietary Evaluation Review Comments: 1.Consider EN regime nepro@20ml/hr to provide 850 Kcal 39g Protein 349ml Free Water to meet nutritional needs 2.Consider PN regime NPO > 5 days Expected Outcomes/Goals: >75% nutritional intake, labs WNL Plan discussed with: Other DEWEY SMITH MD Jul 26, 2024 12:19
[2024-07-27] VITALS (105 sets, daily range): BP systolic 109–187; BP diastolic 40–89; PULSE 64–141; RESP 12–42; TEMP 78.6–99; O2SAT 94–100
[2024-07-27 03:29] LABS: Basophils # (auto) 0 10 ^3/uL (0-0.2); Basophils % (auto) 0.5 % (0.0-2.0); Eosinophils # (auto) 0.1 10 ^3/uL (0-0.8); Eosinophils % (auto) 1.4 % (0.0-7.0); Hematocrit 30.6 % (36.0-46.0); Hemoglobin 10.2 g/dL (12.2-16.2); Lymphocytes # (auto) 0.6 10 ^3/uL (0.4-5.4); Lymphocytes % (auto) 8.9 % (10.0-50.0); Mean Corpuscular Hemoglobin 33.1 pg (28.0-32.0); Mean Corpuscular Hgb Conc. 33.5 g/dL (32.0-36.0); Mean Corpuscular Volume 98.9 fL (80.0-100.0); Monocytes # (auto) 0.6 10 ^3/uL (0-1.3); Monocytes % (auto) 8.7 % (0.0-12.0); Neutrophils # (auto) 5.7 10 ^3/uL (1.6-8.6); Neutrophils % (auto) 80.5 % (37.0-80.0); Nucleated Red Blood Cells % 0.1 %; Platelet Count (auto) 83 10^3/uL (140-450); Red Blood Cells 3.09 10^6/uL (4.0-5.20); Red Cell Distribution Width 15.4 % (11.8-14.3); White Blood Cell 7.1 10^3/uL (4.4-10.8)
[2024-07-27 03:35] LABS: Chloride 100 mmol/L (98-107); Sodium 139 mmol/L (136-145)
[2024-07-27 03:36] LABS: Anion Gap 16 (5-15); Carbon Dioxide 23 mmol/L (20-31)
[2024-07-27 03:42] LABS: BUN/Creatinine Ratio 7.3 (10.0-20.0); Magnesium 2.1 mg/dL (1.6-2.6)
[2024-07-27 03:45] LABS: Potassium 3.1 mmol/L (3.5-5.1)
[2024-07-27 03:46] LABS: Blood Urea Nitrogen 29 mg/dL (9-23); Glucose 114 mg/dL (74-106)
--- NOTE | 2024-07-27 05:36 | DVH ---
EXAM: XR Chest, 1 View CLINICAL INDICATION: pna TECHNIQUE: Frontal view of the chest. COMPARISON: XY CHEST PORTABLE on DOS: 07/26/24, XY CHEST PORTABLE on DOS: 07/25/24, XY CHEST PORTABLE on DOS: 07/25/24, XY CHEST PORTABLE on DOS: 07/24/24, XY CHEST PORTABLE on DOS: 07/23/24 FINDINGS: LUNGS AND PLEURAL SPACES: Increasing congestive heart failure. No consolidation. No pneumothorax. HEART: Unremarkable. No cardiomegaly. MEDIASTINUM: Unremarkable. Normal mediastinal contour. BONES/JOINTS: Unremarkable. No acute fracture. TUBES, LINES AND DEVICES: Stable tubes and lines.. OTHER FINDINGS: . IMPRESSION: Increasing congestive heart failure.
[2024-07-27 06:25] LABS: Base Excess -1.9 mmol/L (-2.0-3.0)
--- NOTE | 2024-07-27 07:55 | DVHPNRES ---
Progress Note Date Seen: Jul 27, 2024 Resident Creating Document: DAGMAR DEL CASTILLO Medical Necessity Reason Pt with a Central, PICC or Fol: Yes The following are medically ne: Central Line, Barron Catheter Reason for barron catheter: Strict I&O Subjective Review of Systems Patient is 69 years old female with past medical history of hypertension, dyslipidemia, diabetes mellitus type 2, COPD on home oxygen [place] O2, ESRD on hemodialysis 3 times per week Tuesday//Tuesday, history of CAD, DE, chronic anemia, history of AV fistula in the left arm, EVAR to thoracic or abdominal aorta(evidence in CT scan) was brought to the hospital due to cough and nausea and vomiting. Patient had productive cough with yellow phlegm, nausea and vomiting and diarrhea and abdominal pain before patient came in. On arrival patient had altered level of consciousness, became unresponsive, [place] coma score was 3/15, required emergency endotracheal intubation. Patient was previously admitted at [facility] in June 08, 2024, April 22, 2024, March 29 2017, December 19, 2016. Most recent hospitalization was due to malfunction of the AV fistula along with dizziness, at the time patient was on home oxygen 4 liter/minute. On her previous admission Dr. Massey, interventional radiologist attempted to fix non functioning AV fistula 06/11/2024 but patient refused repeatedly and requested to be discharged home. Was also admitted on 22/04/24 due to intractable nausea and vomiting and abdominal pain. Patient was found to have right basilic DVT, possible ischemic colitis likely due to fluid overload.. Echo on 04/26/2024 revealed LVEF 50%, moderate pericardial effusion.Moderate to severely elevated right ventricular systolic pressure at 57 mm of mercury. Moderate mitral valve and tricuspid valve regurgitation. Discharged with a diagnosis of pulmonary edema, suspected cardiogenic shock. Admission initial lab workup revealed leukocytosis with WBC 11.6, increased anion gap 18, elevated creatinine 7.58, BUN 78, Troponin I 170> 146> 141, BNP > 5000 HGB A1c 7.1, lactic acidosis with lactic acid 4.3 elevated serum bilirubin 1.2, elevated AST 59 ALT 20, elevated> alkaline phosphatase 218, triglyceride 232, cholesterol 167, LDL 75, HDL 27. UDS negative. Influenza type a and B, SARS COVID negative. Urinalysis negative for UTI. Initial ABG revealed ABG 7.31, pCO2 43.6, PO2 83.2, bicarbonate 21.8. Initial CT Head scan revealed no acute intracranial abnormality. CXR revealed- Moderate cardiomegaly. Prominent interstitial markings bilaterally. Small bilateral pleural effusions with superimposed infection not excluded no pneumothorax. CT chest, Abdomen and Pelvis revealed-Findings consistent with fluid overload state which include cardiomegaly, pericardial effusion, pleural effusions, ascites, and anasarca. Scattered consolidations throughout the bilateral lungs. Moderate periportal edema which has a broad differential that includes viral hepatitis or acute cholangitis x-ray on 07/20/2024 revealed-Patient has a pericardial effusion which could cause tamponade I recommend cardiac echo. There is a large consolidate involving the right lower lobe and there is pulmonary vascular congestion as well. Carotid Doppler on 07/21/2024 revealed- Very limited examination. Unable to evaluate the left carotid system and unable to visualize the right common carotid artery. The degree of carotid stenosis can not be determined on this examination. Findings in the visualized portions of the right carotid system as described above. Single organ ultrasound on 07/21/2024 revealed-No gallstones or sludge.Nonspecific thickened/ edematous appearance to the gallbladder wall. May be related to 3rd spacing. Echo 2D on 07/22/2024 revealed LVEF 30%, moderately reduced, moderately dilated RV, hypokinetic, global pericardial effusion, in range of 1-1.5 cm. Dilated all cardiac chambers and are hypokinetic. Blood culture on 07/20/2024 revealed E coli. Respiratory culture on 0 07/20/24 also grew E coli. Urine culture no growth. MRSA screening positive. Repeat Blood culture on 07/22/24 shows no growth. Patient was seen today for clinical evaluation. Labs than chart reviewed. Overnight patient's BP ranging from 98-186/47-89 , pulse 78-110, temperature 97.5 -98.6 Patient had hemodialysis yesterday, 1 L of fluid was removed No pressor or sedatives at this moment ABG on 07/27/2024-pH 7.50, pCO2 26.3, PO2 81.8, bicarbonate 20.2, recommended RT to readjust the setting for ventilation On 07/27/2024- Patient had failed CPAP trial today twice, patient had apneic episode No Ativan as per Dr. Marc, only Precedex Doctor's Tari also recommended for removal of 2.5-3 L of fluid on hemodialysis tomorrow WBC trending > 11.6> 8.2> 17.6> 13.1> 8.6> 5.5> 5.9> 7.1 hemoglobin 12.8> 11.8> 10.4> 10.2> 9.8> 10.2> 10.2 Platelet 225> 165> 154> 104> 79> 54> 72> 83 Sodium 134>> 132> 132> 132> 136> 135> 139 potassium> 4.2> 3.7>> 4.1> 3.6> 3.8> 3.5> 3.7> 3.1- supplemented for hypokalemia today, repeat potassium after supplementation Anion gap> 18> 17> 16> 13> 16> 15 Serum creatinine 7.58> 7.28> 8.21> 6.30> 6.75> 6.83> 4.99> 5.75> 3.97 BUN> 78> 74 >90> 64> 69> 44> 29 Patient on antibiotic vancomycin and Zosyn Blood culture on 07/20/2024 revealed E coli. Respiratory culture on 07/20/24 also grew E coli. Urine culture no growth. MRSA screening positive. Repeat Blood culture on 07/22/24 shows no growth. Provider called and talked to patient's brother Roland [phone], discussed patient's current medical condition, plan of care and answered his questions Objective vital signs Vital Sign Date Time Temp Pulse Resp B/P (MAP) Pulse Ox O2 Delivery O2 Flow Rate FiO2 07/27/24 07:39 77 16 157/65 (95) 99 30 07/27/24 06:45 98.2 208.8 07/27/24 06:00 Mechanical Ventilator+ Total Intake and Output 07/26/24 07/26/24 07/27/24 15:00 23:00 07:00 Intake Total 50 ml 35 ml 90 ml Output Total 0 ml 200 ml Balance 50 ml 35 ml -110 ml medications Current Medications Medications Dose Ordered Sig/Camacho Route Start Time Stop Time Status Last Admin Dose Admin Pantoprazole Sodium 40 mg DAILY IV 07/21/24 10:00 07/26/24 11:22 40 MG Vancomycin HCl 0 ml @ 0 mls/hr UD IV 07/21/24 02:15 Midazolam HCl 50 ml @ 1 mls/hr Q24H IV 07/21/24 03:45 07/23/24 15:05 3 MLS/HR Fentanyl Citrate 250 ml @ 2.5 mls/hr Q24H IV 07/21/24 03:45 07/23/24 09:34 7.5 MLS/HR Diagnostic Test (Pha) 1 strip Q6HR 07/21/24 18:00 07/27/24 06:00 1 STRIP Insulin Human Regular Q6HR SC 07/21/24 18:00 07/23/24 06:37 2 UNITS Dextrose 50 ml UD PRN IV 07/21/24 15:00 07/21/24 19:04 50 ML Enteral Nutritional Formula 1,000 ml 30ML/HR GT 07/23/24 16:45 07/25/24 16:50 1,000 ML Mupirocin 1 applic BID EACHNOSTRI 07/23/24 22:00 07/28/24 21:59 07/26/24 22:00 1 APPLIC Ceftriaxone Sodium/Dextrose 50 ml @ 50 mls/hr DAILY IV 07/25/24 10:00 07/26/24 11:23 50 MLS/HR Norepinephrine Bitartrate 250 ml @ 1.875 mls/ hr Q24H IV 07/24/24 20:15 Lorazepam 1 mg Q4HP PRN IV 07/25/24 17:00 07/27/24 00:48 1 MG Hydralazine HCl 10 mg Q6HP PRN IV 07/26/24 19:00 07/26/24 21:07 10 MG Examination General examination- patient on mechanical ventilation, sedation, sacral wound present HEENT- PEERLA, no acute nasal discharge Cardiovascular- S1-S2 audible, rate and rhythm regular, no murmur Respiratory- CTAB, no wheeze or rhonchi Gastrointestinal-nontender, bowel sound+. Nondistended Musculoskeletal-no acute joint swelling or tenderness or redness Lower extremity- no leg edema Neurological- cranial nerves intact, no acute dysarthria or dysphagia Skin- no acute rash or purpura laboratory and microbiology Laboratory Tests 07/27/24 03:00 Test 07/27/24 03:00 Range/Units Serum Glucose 114 H 74-106 mg/dL Microbiology Date/Time Source Procedure Growth Status 07/22/24 15:49 Blood Blood Culture - Preliminary NO GROWTH AFTER 72 HOURS OF INCUBATION. Resulted 07/22/24 01:47 Nose MRSA Screen - Final Complete 07/21/24 12:40 Voided Urine Urine Culture - Final Complete 07/20/24 21:29 Sputum Gram Stain - Final Complete 07/20/24 21:29 Respiratory Culture - Final Escherichia coli Complete Problem List/Assessment/Plan Problem List/Assessment/Plan Assessment and plan ABG on 07/27/2024-pH 7.50, pCO2 26.3, PO2 81.8, bicarbonate 20.2, recommended RT to readjust the setting for ventilation On 07/27/2024- Patient had failed CPAP trial today twice, patient had apneic episode No Ativan as per Dr. Marc, only Precedex Doctor's Tari also recommended for removal of 2.5-3 L of fluid on hemodialysis tomorrow Neurology Metabolic encephalopathy/uremic encephalopathy/hypoxic encephalopathy Patient on mechanical ventilation, on sedation Continue current management - avoid dehydration and nephrotoxic drugs Cardiovascular Septic shock Acute heart failure HFrEF, EF-30%. NSTEMI type 2 demand lead ischemia Acute pulmonary edema likely due to volume overload Pericardial effusion, recurrent -Status post EVAR to thoracic / abdominal aorta Anasarca Suspected cardiac tamponade -H/O HTN, - HLD - Echo 2D on 10/22/2024 revealed LVEF 30%, moderately reduced, moderately dilated RV, hypokinetic, global pericardial effusion, in range of 1-1.5 cm. Dilated all cardiac chambers and are hypokinetic -continue current management Respiratory Acute hypoxic respiratory failure due to acute pulmonary edema/volume overload Bilateral pleural effusion -suspected acute exertional COPD Suspected pneumonia Gram-positive versus Gram-negative B/L Lower lung consolidation Pleural effusion - apneic episode during CPAP trial on 07/27/2024 - Blood culture on 07/20/2024 revealed E coli. Respiratory culture on 07/20/24 also grew E coli. -repeat blood culture on 07/22/2024 preliminary report no growth MRSA screening positive -continue ceftriaxone as prescribed as prescribed -mupirocin as prescribed Gastroenterology -suspected viral hepatitis/cholangitis -ascites -transaminitis -continue pantoprazole 40 mg IV daily Genitourinary/renal -ESRD on HD -fluid overload likely due to ESRD - avoid dehydration and nephrotoxic drugs Hemato oncology --anemia of chronic disease -thrombocytopenia - discontinue heparin due to thrombocytopenia -leukocytosis -monitor CBC Infectious -septic shock -leukocytosis -pneumonia Gram-positive versus Gram-negative - Blood culture on 07/20/2024 revealed E coli. Respiratory culture on 07/20/24 also grew E coli. -blood culture on 0 07/22/24 preliminary reports no growth MRSA screening positive -urine culture negative -continue ceftriaxone 2 g IV daily -mupirocin as prescribed Endocrine/metabolic disorder Metabolic acidosis Lactic acidosis Dilutional hyponatremia Diabetes mellitus type 2 -hyperlipidemia -malnutrition Skin/alimentary Drips -Precedex Lines- ETT- Goals of care/advance care planning Code status ; discussed >15 minutes PUD prophylaxis: Pantoprazole DVT prophylaxis: Discontinued heparin due to thrombocytopenia Plan discussed with Dr. Marc , nursing staff, Roland (Brother) Total time spent on patient evaluation, chart review, assessment and plan, total critical time spent including monitoring mechanical ventilation, CPAP trial 83 minutes: Plan discussed with: Other (RN, brother ) My Orders My Orders Orders - DAGMAR DEL CASTILLO Procedure Category Date Status Time Chest Portable XY 07/27/24 Resulted 04:00 Abg W/ Co-Ox RT 07/27/24 Logged 06:00 Cpap Trial For Am ORDERS 07/26/24 Transmitted 19:41 Dietary Evaluation Review Comments: 1.Consider EN regime nepro@20ml/hr to provide 850 Kcal 39g Protein 349ml Free Water to meet nutritional needs 2.Consider PN regime NPO > 5 days Expected Outcomes/Goals: >75% nutritional intake, labs WNL DAGMAR DEL CASTILLO RESIDENT Jul 27, 2024 07:55
[2024-07-27] MEDS: POTASSIUM CHL 20MEQ/50ML 50 ML IV ONE (09:42)
[2024-07-27] MEDS: VANCOMYCIN 500mg/100mL 100 ML IV ONE (12:05)
[2024-07-27] MEDS: LORazepam 2MG/ML-1ML VIAL IV PRN (12:08)
[2024-07-27] MEDS ORDERED: DEXMEDETOMIDINE HCL IN D5W 100 ML IV SCH (15:45)
--- NOTE | 2024-07-27 15:45 | DVHPN2 ---
Progress Note - Dictate Date Seen: Jul 27, 2024 Medical Necessity Reason Pt with a Central, PICC or Fol: Yes The following are medically ne: Central Line, Barron Catheter Reason for barron catheter: Strict I&O Subjective Patient was seen and evaluated in follow up in the ICU. Patient is intubated on ventilator. 30% FiO2. Patient receiving vasopressors for hemodynamic support. Patient is moving extremities as of today. CPAP trial was terminated due to the patient not being able to follow commands. K 3.1, BUN 29, DAIRY EQUIPMENT MECHANIC 3.97. Chest x-ray shows increasing congestive heart failure. vital signs Vital Sign Date Time Temp Pulse Resp B/P (MAP) Pulse Ox O2 Delivery O2 Flow Rate FiO2 07/27/24 12:00 30 07/27/24 12:00 97.5 126 26 184/74 (110) 95 207.5 07/27/24 12:00 Mechanical Ventilator+ Total Intake and Output 07/26/24 07/26/24 07/27/24 15:00 23:00 07:00 Intake Total 50 ml 35 ml 90 ml Output Total 0 ml 200 ml Balance 50 ml 35 ml -110 ml medications Current Medications Medications Dose Ordered Sig/Camacho Route Start Time Stop Time Status Last Admin Dose Admin Pantoprazole Sodium 40 mg DAILY IV 07/21/24 10:00 07/27/24 09:38 40 MG Vancomycin HCl 0 ml @ 0 mls/hr UD IV 07/21/24 02:15 Midazolam HCl 50 ml @ 1 mls/hr Q24H IV 07/21/24 03:45 07/23/24 15:05 3 MLS/HR Fentanyl Citrate 250 ml @ 2.5 mls/hr Q24H IV 07/21/24 03:45 07/23/24 09:34 7.5 MLS/HR Diagnostic Test (Pha) 1 strip Q6HR 07/21/24 18:00 07/27/24 11:45 1 STRIP Insulin Human Regular Q6HR SC 07/21/24 18:00 07/23/24 06:37 2 UNITS Dextrose 50 ml UD PRN IV 07/21/24 15:00 07/21/24 19:04 50 ML Enteral Nutritional Formula 1,000 ml 30ML/HR GT 07/23/24 16:45 07/25/24 16:50 1,000 ML Mupirocin 1 applic BID EACHNOSTRI 07/23/24 22:00 07/28/24 21:59 07/27/24 09:41 1 APPLIC Ceftriaxone Sodium/Dextrose 50 ml @ 50 mls/hr DAILY IV 07/25/24 10:00 07/27/24 09:38 50 MLS/HR Norepinephrine Bitartrate 250 ml @ 1.875 mls/ hr Q24H IV 07/24/24 20:15 Hydralazine HCl 10 mg Q6HP PRN IV 07/26/24 19:00 07/27/24 10:54 10 MG Lorazepam 0.25 mg Q4HP PRN IV 07/27/24 11:15 07/27/24 12:08 0.25 MG objective GENERAL: Ill appearing, intubated on ventilator. LUNGS: Decreased breath sounds. CARDIOVASCULAR: Heart sounds are good. ABDOMEN: Soft. EXT: BLE edema. laboratory and microbiology Laboratory Tests 07/27/24 03:00 Test 07/27/24 03:00 Range/Units Serum Glucose 114 H 74-106 mg/dL Problem List NSTEMI likely type 2 AL. Acute on chronic HFpEF. Acute hypoxic respiratory failure. Pericardial effusion, recurrent. Sepsis, suspected pneumonia. HTN. HLD. 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 ESRD on HD. HLD. Gram-negative bacteremia. Diabetes mellitus type 2. Assessment/Plan Continued all current supportive medical care. Vasopressors for hemodynamic support. GI prophylactics. IV antibiotics as ordered. Additional plan as per the hospital course. Critical care time of 45 minutes provided to include time spent evaluation of patient at bedside, when appropriate patient/family education for diagnosis, treatment plan, review of pertinent medical information and discussion of care with specialty providers and PCP. Mechanical ventilator parameters, treatment and adjustments have personally been reviewed by me and treatment plan by industrial relations commissioner has also been reviewed. Dietary Evaluation Review Comments: 1.Consider EN regime nepro@20ml/hr to provide 850 Kcal 39g Protein 349ml Free Water to meet nutritional needs 2.Consider PN regime NPO > 5 days Expected Outcomes/Goals: >75% nutritional intake, labs WNL Plan discussed with: Other DEWEY SMITH MD Jul 27, 2024 12:30
--- NOTE | 2024-07-27 19:28 | DVHPN2 ---
Progress Note - Dictate Date Seen: Jul 27, 2024 Medical Necessity Reason Pt with a Central, PICC or Fol: Yes The following are medically ne: Central Line, Barron Catheter Reason for barron catheter: Strict I&O Subjective Patient was seen and evaluated in follow up in ICU. Chart/events reviewed. Patient remains intubated on ventilator. 30% FiO2. Patient is moving extremities. Failed CPAP trial due to not being able to follow commands. Follow up Chest x-ray shows increasing congestive heart failure. Scheduled for dialysis today. vital signs Vital Sign Date Time Temp Pulse Resp B/P (MAP) Pulse Ox O2 Delivery O2 Flow Rate FiO2 07/27/24 18:45 77 16 139/61 (87) 99 07/27/24 18:00 30 07/27/24 18:00 Mechanical Ventilator+ 07/27/24 16:00 98.0 98.0 Total Intake and Output 07/26/24 07/26/24 07/27/24 15:00 23:00 07:00 Intake Total 50 ml 35 ml 90 ml Output Total 0 ml 200 ml Balance 50 ml 35 ml -110 ml medications Current Medications Medications Dose Ordered Sig/Camacho Route Start Time Stop Time Status Last Admin Dose Admin Pantoprazole Sodium 40 mg DAILY IV 07/21/24 10:00 07/27/24 09:38 40 MG Vancomycin HCl 0 ml @ 0 mls/hr UD IV 07/21/24 02:15 Midazolam HCl 50 ml @ 1 mls/hr Q24H IV 07/21/24 03:45 07/23/24 15:05 3 MLS/HR Fentanyl Citrate 250 ml @ 2.5 mls/hr Q24H IV 07/21/24 03:45 07/23/24 09:34 7.5 MLS/HR Diagnostic Test (Pha) 1 strip Q6HR 07/21/24 18:00 07/27/24 11:45 1 STRIP Insulin Human Regular Q6HR SC 07/21/24 18:00 07/23/24 06:37 2 UNITS Dextrose 50 ml UD PRN IV 07/21/24 15:00 07/21/24 19:04 50 ML Enteral Nutritional Formula 1,000 ml 30ML/HR GT 07/23/24 16:45 07/25/24 16:50 1,000 ML Mupirocin 1 applic BID EACHNOSTRI 07/23/24 22:00 07/28/24 21:59 07/27/24 09:41 1 APPLIC Ceftriaxone Sodium/Dextrose 50 ml @ 50 mls/hr DAILY IV 07/25/24 10:00 07/27/24 09:38 50 MLS/HR Norepinephrine Bitartrate 250 ml @ 1.875 mls/ hr Q24H IV 07/24/24 20:15 Hydralazine HCl 10 mg Q6HP PRN IV 07/26/24 19:00 07/27/24 10:54 10 MG Lorazepam 0.25 mg Q4HP PRN IV 07/27/24 11:15 07/27/24 12:08 0.25 MG Dexmedetomidine HCl 400 mcg/ Dextrose 100 ml @ 2.31 mls/hr Q24H IV 07/27/24 16:00 07/27/24 16:00 2.31 MLS/HR objective Vitals and nursing notes reviewed. General appearance: Ill-appearing, in no acute distress. HEENT: Normocephalic, atraumatic. Chest: Intubated. Heart: Regular rate; no murmur or gallop Abdomen: Soft, nontender, nondistended Musculoskeletal: No clubbing, no cyanosis, trace lower extremity edema Skin: Warm, moist. Neurological: Off sedation. Unable to assess. laboratory and microbiology Laboratory Tests 07/27/24 16:20 07/27/24 03:00 Test 07/27/24 03:00 Range/Units Serum Glucose 114 H 74-106 mg/dL Problem List Metabolic encephalopathy secondary to sepsis Acute respiratory failure Cardiorenal syndrome type 3 ESRD on hemodialysis Pericardial effusion Anasarca NSTEMI Transaminitis Normocytic anemia Diabetes - uncontrolled (hemoglobin A1c 7.1%) Hypertension Dyslipidemia Assessment/Plan Agree with current supportive medical care. Cardiology and vent/respiratory care management deferred. Neurology following. Schedule dialysis today and tomorrow. UF 1.5L as tolerated. Epogen 10,000 u X 1 dose. Albumin and Levo as needed for BP support. IV antibiotics. GI / DVT prophylaxis. Nutritional support. Senior Capital Markets Specialist consulted. Additional plan as per the hospital course. Dietary Evaluation Review Comments: 1.Consider EN regime nepro@20ml/hr to provide 850 Kcal 39g Protein 349ml Free Water to meet nutritional needs 2.Consider PN regime NPO > 5 days Expected Outcomes/Goals: >75% nutritional intake, labs WNL Plan discussed with: Other (RN) JOSE LUIS SMITH DO Jul 27, 2024 19:28
--- NOTE | 2024-07-27 21:20 | DVHPN2 ---
Progress Note - Dictate Date Seen: Jul 27, 2024 Medical Necessity Reason Pt with a Central, PICC or Fol: Yes The following are medically ne: Central Line, Barron Catheter Reason for barron catheter: Strict I&O Subjective Ms. Em is a 69 years old right-handed female with a history of hypertension, diabetes, the patient came to the hospital on 07/20/2024 with a chief come of shortness of breath. At this time, she was intubated sedated, on pressor drip, responds to stroke painful stimuli, history is obtained from chart review I saw on 12/20/2016 for ALOC (UTI, hypotension) I have seen and examined the patient, I have discussed with her nurse, she is intubated, she moves her head, right arm Pupils are 4-5 mm, left-sided slightly bigger, the right is a vertigo oval The left pupil is bigger with sluggish light reflexes UDS, 07/21/2024: Negative Plasma alcohol, 07/20/2024: <3 Urinalysis, 03: WBC: 15, urine leukocyte esterase: Negative Blood culture, 07/20/2024: E coli Respiratory culture, 07/20/2024: E coli ABG, 07/20/2024: Acidosis WBC/Hb/PLT, 07/23/2024: 3.1/10.4/104/98 PT/INR/PTT, 07/20/2024: 15.1/1.48/ BUNs/CR, 07/20/2024: 78/7.58, 07/22/2024: 19/8.21, 07/23/2024: 64/6.3 Lactic acid, 07/08/2024, 4.3, 3.6 Total bilirubin/AST/ALT/AP, 07/22/2024: 1/73/18/157 TG/HDL/LDL/HDL, 07/20/2024: 232/167/75/27 Vitamin B12, 12/2016:1069, 12/22/16: >2000 Folic acid, 12/2016:10.79 TSH, 12/2016:0.69 EEG, 12/21/16: Normal Carotid Doppler, 07/21/2024: Very limited examination. Unable to evaluate the left carotid system and unable to visualize the right common carotid artery. The degree of carotid stenosis can not be determined on this examination. Findings in the visualized portions of the right carotid system as described above Arterial Doppler, legs, 07/24/2024: 20-49% stenosis of the right common femoral artery based on peak systolic velocity criteria. No hemodynamically significant stenosis based on peak systolic velocity criteria on the left. Bilateral abnormal monophasic arterial waveforms suggest underlying peripheral arterial disea Echocardiogram, 07/22/2024: GLOBAL PERICARDIAL EFFUSION IN RANGE OF 1.0 TO 1.5 CM IN WIDTH NO RV COLLAPSE NO EVIDENCE OF PERICARDIAL TAMPONADE DILATED ALL CARDIAC CHAMBERS AND ARE HYPOKINETIC LV EF IS 30% AND IS MODERATELY REDUCED MODERATELY DILATED RV AND IS HYPOKINETIC NORMAL VALVES Chest, 07/20/2024: Patient has a pericardial effusion which could cause tamponade I recommend cardiac echo. There is a large consolidate involving the right lower lobe and there is pulmonary vascular congestion as well ( Endotracheal tube is below the clavicles just above the aortic arch) Chest x-ray, 07/23/2024: Increasing congestive heart failure. CT head, 07/20/2024: No acute intracranial abnormality vital signs Vital Sign Date Time Temp Pulse Resp B/P (MAP) Pulse Ox O2 Delivery O2 Flow Rate FiO2 07/27/24 19:50 90 18 162/88 (112) 98 30 07/27/24 18:00 Mechanical Ventilator+ 07/27/24 16:00 98.0 98.0 Total Intake and Output 07/26/24 07/26/24 07/27/24 15:00 23:00 07:00 Intake Total 50 ml 35 ml 90 ml Output Total 0 ml 200 ml Balance 50 ml 35 ml -110 ml medications Current Medications Medications Dose Ordered Sig/Camacho Route Start Time Stop Time Status Last Admin Dose Admin Pantoprazole Sodium 40 mg DAILY IV 07/21/24 10:00 07/27/24 09:38 40 MG Vancomycin HCl 0 ml @ 0 mls/hr UD IV 07/21/24 02:15 Midazolam HCl 50 ml @ 1 mls/hr Q24H IV 07/21/24 03:45 07/23/24 15:05 3 MLS/HR Fentanyl Citrate 250 ml @ 2.5 mls/hr Q24H IV 07/21/24 03:45 07/23/24 09:34 7.5 MLS/HR Diagnostic Test (Pha) 1 strip Q6HR 07/21/24 18:00 07/27/24 11:45 1 STRIP Insulin Human Regular Q6HR SC 07/21/24 18:00 07/23/24 06:37 2 UNITS Dextrose 50 ml UD PRN IV 07/21/24 15:00 07/21/24 19:04 50 ML Enteral Nutritional Formula 1,000 ml 30ML/HR GT 07/23/24 16:45 07/25/24 16:50 1,000 ML Mupirocin 1 applic BID EACHNOSTRI 07/23/24 22:00 07/28/24 21:59 07/27/24 09:41 1 APPLIC Ceftriaxone Sodium/Dextrose 50 ml @ 50 mls/hr DAILY IV 07/25/24 10:00 07/27/24 09:38 50 MLS/HR Norepinephrine Bitartrate 250 ml @ 1.875 mls/ hr Q24H IV 07/24/24 20:15 Hydralazine HCl 10 mg Q6HP PRN IV 07/26/24 19:00 07/27/24 10:54 10 MG Lorazepam 0.25 mg Q4HP PRN IV 07/27/24 11:15 07/27/24 12:08 0.25 MG Dexmedetomidine HCl 400 mcg/ Dextrose 100 ml @ 2.31 mls/hr Q24H IV 07/27/24 16:00 07/27/24 16:00 2.31 MLS/HR Albumin Human 100 ml @ 100 mls/hr Q1HR IV 07/27/24 21:00 07/27/24 22:59 objective The patient is well-nourished and well-developed with no distress. The patient is intubated MENTAL STATUS: Subjective CRANIAL NERVES: Pupils are reactive, left pupil is slightly bigger and is s/pt surgery.There are corneal reflexes and doll's eyes phenomenon. No signs of facial weakness. There are gagging or coughing reflexes. There is no abnormal vascular dilatation, skin secretion in face SENSATION: Slightly responses to pain stimuli. MOTOR: Normal tone in the upper and lower extremity. Normal muscle bulk. No fasciculations. No spontaneous movement. REFLEXES: Deep tendon reflexes are symmetrical. No pathological reflexes. CEREBELLAR/COORDINATION: Deferred GAIT/STATION: deferred laboratory and microbiology Laboratory Tests 07/27/24 16:20 07/27/24 03:00 Test 07/27/24 03:00 Range/Units Serum Glucose 114 H 74-106 mg/dL Problem List Anisocoria with left-sided slightly bigger, uncertain clinical significance Left surgical pupil Altered mental status Hypoxic encephalopathy Metabolic encephalopathy Acute respiratory failure Pneumonia Acidosis, leukocytosis, Sepsis, septic shock ? Diabetic polyneuropathy Rule out other central nervous system pathology She is improving, but overall still very weak Assessment/Plan Monitoring Supportive treatment Follow-up labs ICU care Stabilize vitals/pressor drip Record support/vent management Oxygen IV antibiotics DVT prophylaxis/heparin 5000 units subQ q.12 hours GI prophylaxis/Protonix 40 mg daily Further address possible diabetic polyneuropathy late More recommendation per clinical course This medical document was created using an electronic medical record system with [employer] dictation system. Although this document has been carefully reviewed, there may still be some phonetic and typographical errors. These areas are purely typographical due to imperfections of the software programs, and do not reflect any compromise in the patient's medical care Prognosis Guarded Dietary Evaluation Review Comments: 1.Consider EN regime nepro@20ml/hr to provide 850 Kcal 39g Protein 349ml Free Water to meet nutritional needs 2.Consider PN regime NPO > 5 days Expected Outcomes/Goals: >75% nutritional intake, labs WNL Plan discussed with: Other FLORENTINO CLARK MD Jul 27, 2024 21:20
[2024-07-27] MEDS: ALBUMIN 25% 100 ML IV SCH (22:00)
[2024-07-28] VITALS (101 sets, daily range): BP systolic 81–196; BP diastolic 42–89; PULSE 63–130; RESP 13–26; TEMP 87.4–99.5; O2SAT 94–100
[2024-07-28 04:25] LABS: Basophils # (auto) 0 10 ^3/uL (0-0.2); Basophils % (auto) 0.3 % (0.0-2.0); Eosinophils # (auto) 0.1 10 ^3/uL (0-0.8); Eosinophils % (auto) 1.2 % (0.0-7.0); Hematocrit 31.3 % (36.0-46.0); Hemoglobin 10.5 g/dL (12.2-16.2); Lymphocytes # (auto) 0.5 10 ^3/uL (0.4-5.4); Lymphocytes % (auto) 5.7 % (10.0-50.0); Mean Corpuscular Hemoglobin 33.1 pg (28.0-32.0); Mean Corpuscular Hgb Conc. 33.5 g/dL (32.0-36.0); Mean Corpuscular Volume 98.9 fL (80.0-100.0); Monocytes # (auto) 0.5 10 ^3/uL (0-1.3); Monocytes % (auto) 6.7 % (0.0-12.0); Neutrophils # (auto) 6.9 10 ^3/uL (1.6-8.6); Neutrophils % (auto) 86.1 % (37.0-80.0); Nucleated Red Blood Cells % 0.2 %; Platelet Count (auto) 75 10^3/uL (140-450); Red Blood Cells 3.17 10^6/uL (4.0-5.20); Red Cell Distribution Width 15.5 % (11.8-14.3); White Blood Cell 8.1 10^3/uL (4.4-10.8)
[2024-07-28 04:43] LABS: Alanine Aminotransferase 11 U/L (7-40); Anion Gap 13 (5-15); Aspartate Aminotransferase 19 U/L (13-40); BUN/Creatinine Ratio 4.9 (10.0-20.0); Bilirubin, Total 1.1 mg/dL (0.2-1.0); Blood Urea Nitrogen 12 mg/dL (9-23); Calcium 9.2 mg/dL (8.7-10.4); Carbon Dioxide 26 mmol/L (20-31); Chloride 102 mmol/L (98-107); Glucose 80 mg/dL (74-106); Sodium 141 mmol/L (136-145)
[2024-07-28 04:47] LABS: Albumin 3.2 g/dL (3.2-4.8); Alkaline Phosphatase 191 U/L (46-116); Potassium 3.3 mmol/L (3.5-5.1)
--- NOTE | 2024-07-28 06:02 | DVH ---
CHEST RADIOGRAPH Indication: PNA/Pleural Effusion Technique: Single frontal view of the chest was obtained COMPARISON: XY CHEST PORTABLE on DOS: 07/27/24, XY CHEST PORTABLE on DOS: 07/26/24, XY CHEST PORTABLE o n DOS: 07/25/24, XY CHEST PORTABLE on DOS: 07/25/24, XY CHEST PORTABLE on DOS: 07/24/24 FINDINGS: Lines and Tubes: Endotracheal tube, enteric tube and left internal jugular central venous catheter un changed in position. Lungs: Moderate interval improvement in patchy pulmonic airspace disease within the bilateral middle and lower lung zones. Pleura: Interval decrease in bilateral pleural effusions. No pneumothorax. Cardiomediastinal contours: Unremarkable Bones: Unremarkable IMPRESSION: 1. Moderate interval improvement in patchy bilateral pulmonic middle and lower lung zone airspace dis ease and bilateral pleural effusions.
[2024-07-28 06:10] LABS: Base Excess 1.2 mmol/L (-2.0-3.0)
[2024-07-28] MEDS: POTASSIUM CHL 20MEQ/50ML 50 ML IV ONE (06:15)
--- NOTE | 2024-07-28 11:06 | DVHPN2 ---
Assessment/Plan Assessment/Plan ICU note 69 yo M with COPD group E on home O2, ESRD on HD TTS, CAD, s/p EVAR, IDDM, HTN, HLD, admiteed for N/V, found to be altered and was intubated for airway protection. seen today during rounds, failed spont, not opening eyes, only grimacing to pain. for HD today. will switch line. more alkalotic, decreasing TV to 460 Physical exam Intubated, sedated on mechanical ventilation Not following command grimacing to pain mechanical breath sounds s1 s2 rrr abdomen soft trace LE edema L AVF Labs EKG imaging reviewed Bcx scx ecoli, MRSA screen + Assessment and plan Acute metabolic / uremic encephalopathy acute on chronic hypoxic respiratory failure req mechanical ventilation septic shock acute systolic heart failure HFrEf 30% COPD group E with exacerbation Type 2 PR demand ischamia ESRD on HD with fluid overload Pericardial effusion tamponade ruled out Acute pulmonary edema Pnemonia GP vs GN Pleural effusion possible cholangitis? transaminitis ascites anemia CKD thrombocytopenia IDDM s/p EVAR stage 2 sacral ulcer c/w mechanical ventilation maintain spo2 >94% c/w precedex to assist vent synchrony c/w STAVE BLOCK SPLITTER per renal, aim for higher fluid removal c/w ceftriaxone c/w steroid, albuterol, ipatropium daily SAT/SBT monitor CBC switch to midline after HD keep glucose between 150-200 keep K 4, Ph 3, Mg 2 lines ETT NGT TLC - switch to midline after HD diet nepro dvt ppx lovenox gi ppx protonix code status full code goals of care curative critical care time 50 minutes Plan discussed with: Other Date of Service: Jul 28, 2024 Billing Provider: TATI OROURKE MD Common Visit Codes: 88174-HGPFPOKD CARE 30-74 MIN TATI OROURKE MD Jul 28, 2024 11:06
[2024-07-28] MEDS: ALBUMIN 25% 100 ML IV ONE (15:44)
[2024-07-28 17:02] LABS: Base Excess 3.2 mmol/L (-2.0-3.0)
[2024-07-28] MEDS: VANCOMYCIN 500mg/100mL 100 ML IV ONE (17:15)
--- NOTE | 2024-07-28 18:31 | DVHPN2 ---
Progress Note - Dictate Date Seen: Jul 28, 2024 Medical Necessity Reason Pt with a Central, PICC or Fol: Yes The following are medically ne: Central Line, Barron Catheter Reason for barron catheter: Strict I&O Subjective Patient was seen and evaluated in follow up in the ICU. Patient is intubated on ventilator. 30% FiO2. Patient receiving vasopressors for hemodynamic support. Patient responds to painful stimuli by grimacing. K 3.3, DEBT MANAGEMENT COUNSELOR 2.45. Chest x-ray shows moderate interval improvement in patchy bilateral pulmonic middle and lower lung zone airspace disease and bilateral pleural effusions. vital signs Vital Sign Date Time Temp Pulse Resp B/P (MAP) Pulse Ox O2 Delivery O2 Flow Rate FiO2 07/28/24 11:30 75 16 148/59 (88) 97 30 07/28/24 08:00 Mechanical Ventilator+ 07/28/24 08:00 98.4 98.4 Total Intake and Output 07/27/24 07/27/24 07/28/24 15:00 23:00 07:00 Intake Total 200 ml 1.155 ml 96.86 ml Balance 200 ml 1.155 ml 96.86 ml medications Current Medications Medications Dose Ordered Sig/Camacho Route Start Time Stop Time Status Last Admin Dose Admin Pantoprazole Sodium 40 mg DAILY IV 07/21/24 10:00 07/28/24 09:41 40 MG Vancomycin HCl 0 ml @ 0 mls/hr UD IV 07/21/24 02:15 Diagnostic Test (Pha) 1 strip Q6HR 07/21/24 18:00 07/28/24 06:12 1 STRIP Insulin Human Regular Q6HR SC 07/21/24 18:00 07/23/24 06:37 2 UNITS Dextrose 50 ml UD PRN IV 07/21/24 15:00 07/21/24 19:04 50 ML Enteral Nutritional Formula 1,000 ml 30ML/HR GT 07/23/24 16:45 07/27/24 22:12 1,000 ML Mupirocin 1 applic BID EACHNOSTRI 07/23/24 22:00 07/28/24 21:59 07/28/24 09:41 1 APPLIC Ceftriaxone Sodium/Dextrose 50 ml @ 50 mls/hr DAILY IV 07/25/24 10:00 07/28/24 09:41 50 MLS/HR Hydralazine HCl 10 mg Q6HP PRN IV 07/26/24 19:00 07/28/24 00:19 10 MG Lorazepam 0.25 mg Q4HP PRN IV 07/27/24 11:15 07/27/24 12:08 0.25 MG Dexmedetomidine HCl 400 mcg/ Dextrose 100 ml @ 2.31 mls/hr Q24H IV 07/27/24 16:00 07/27/24 16:00 2.31 MLS/HR objective GENERAL: Ill appearing, intubated on ventilator. LUNGS: Decreased breath sounds. CARDIOVASCULAR: Heart sounds are good. ABDOMEN: Soft. EXT: BLE edema. laboratory and microbiology Laboratory Tests 07/28/24 03:33 Test 07/28/24 03:33 Range/Units Serum Glucose 80 74-106 mg/dL Problem List NSTEMI likely type 2 RI. Acute on chronic HFpEF. Acute hypoxic respiratory failure. Pericardial effusion, recurrent. Sepsis, suspected pneumonia. HTN. HLD. 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 ESRD on HD. HLD. Gram-negative bacteremia. Diabetes mellitus type 2. Assessment/Plan Continued all current supportive medical care. Vasopressors for hemodynamic support. GI prophylactics. IV antibiotics as ordered. Additional plan as per the hospital course. Critical care time of 45 minutes provided to include time spent evaluation of patient at bedside, when appropriate patient/family education for diagnosis, treatment plan, review of pertinent medical information and discussion of care with specialty providers and PCP. Mechanical ventilator parameters, treatment and adjustments have personally been reviewed by me and treatment plan by gas station cashier has also been reviewed. Dietary Evaluation Review Comments: 1.Consider EN regime nepro@20ml/hr to provide 850 Kcal 39g Protein 349ml Free Water to meet nutritional needs 2.Consider PN regime NPO > 5 days Expected Outcomes/Goals: >75% nutritional intake, labs WNL Plan discussed with: Other DEWEY SMITH MD Jul 28, 2024 11:57
--- NOTE | 2024-07-28 18:32 | DVHPN2 ---
Progress Note - Dictate Date Seen: Jul 28, 2024 Medical Necessity Reason Pt with a Central, PICC or Fol: Yes The following are medically ne: Central Line, Barron Catheter Reason for barron catheter: Strict I&O Subjective Patient was seen and evaluated in follow up in ICU. Chart/events reviewed. Patient remains intubated on mechanical ventilator support. 30% FiO2. Failed SBT. Patient is not opening eyes and only grimaces to pain. Received dialysis with 1L removed. Line to be switched. vital signs Vital Sign Date Time Temp Pulse Resp B/P (MAP) Pulse Ox O2 Delivery O2 Flow Rate FiO2 07/28/24 17:30 182/74 07/28/24 16:30 71 16 97 30 07/28/24 14:00 Mechanical Ventilator+ 07/28/24 12:00 98.2 98.2 Total Intake and Output 07/27/24 07/27/24 07/28/24 15:00 23:00 07:00 Intake Total 200 ml 1.155 ml 96.86 ml Balance 200 ml 1.155 ml 96.86 ml medications Current Medications Medications Dose Ordered Sig/Camacho Route Start Time Stop Time Status Last Admin Dose Admin Pantoprazole Sodium 40 mg DAILY IV 07/21/24 10:00 07/28/24 09:41 40 MG Vancomycin HCl 0 ml @ 0 mls/hr UD IV 07/21/24 02:15 Diagnostic Test (Pha) 1 strip Q6HR 07/21/24 18:00 07/28/24 17:54 1 STRIP Insulin Human Regular Q6HR SC 07/21/24 18:00 07/23/24 06:37 2 UNITS Dextrose 50 ml UD PRN IV 07/21/24 15:00 07/21/24 19:04 50 ML Enteral Nutritional Formula 1,000 ml 30ML/HR GT 07/23/24 16:45 07/27/24 22:12 1,000 ML Mupirocin 1 applic BID EACHNOSTRI 07/23/24 22:00 07/28/24 21:59 07/28/24 09:41 1 APPLIC Ceftriaxone Sodium/Dextrose 50 ml @ 50 mls/hr DAILY IV 07/25/24 10:00 07/28/24 09:41 50 MLS/HR Hydralazine HCl 10 mg Q6HP PRN IV 07/26/24 19:00 07/28/24 17:10 10 MG Lorazepam 0.25 mg Q4HP PRN IV 07/27/24 11:15 07/27/24 12:08 0.25 MG Dexmedetomidine HCl 400 mcg/ Dextrose 100 ml @ 2.31 mls/hr Q24H IV 07/27/24 16:00 07/28/24 17:30 3.465 MLS/HR objective Vitals and nursing notes reviewed. General appearance: Ill-appearing, in no acute distress. HEENT: Normocephalic, atraumatic. Chest: Intubated. Heart: Regular rate; no murmur or gallop Abdomen: Soft, nontender, nondistended Musculoskeletal: No clubbing, no cyanosis, trace lower extremity edema Skin: Warm, moist. Neurological: Off sedation. Unable to assess. laboratory and microbiology Laboratory Tests 07/28/24 03:33 Test 07/28/24 03:33 Range/Units Serum Glucose 80 74-106 mg/dL Problem List Metabolic encephalopathy secondary to sepsis Acute respiratory failure Cardiorenal syndrome type 3 ESRD on hemodialysis Pericardial effusion Anasarca NSTEMI Transaminitis Normocytic anemia Diabetes - uncontrolled (hemoglobin A1c 7.1%) Hypertension Dyslipidemia Assessment/Plan Agree with current supportive medical care. Cardiology and vent/respiratory care management deferred. Neurology following. HD- 07/28- UF 2L as tolerated. 1L removed. Albumin and Levo as needed for BP support. TLC to be switched to midline. IV antibiotics. GI / DVT prophylaxis. Nutritional support. Therapy Manager consulted. Additional plan as per the hospital course. Dietary Evaluation Review Comments: 1.Consider EN regime nepro@20ml/hr to provide 850 Kcal 39g Protein 349ml Free Water to meet nutritional needs 2.Consider PN regime NPO > 5 days Expected Outcomes/Goals: >75% nutritional intake, labs WNL Plan discussed with: Other (RN) JOSE LUIS SMITH DO Jul 28, 2024 18:32
--- NOTE | 2024-07-28 22:32 | DVHPN2 ---
Progress Note - Dictate Date Seen: Jul 28, 2024 Medical Necessity Reason Pt with a Central, PICC or Fol: Yes The following are medically ne: Central Line, Barron Catheter Reason for barron catheter: Strict I&O Subjective Patient seen and examined at bedside. Intubated on mechanical ventilator. Overnight events reviewed. vital signs Vital Sign Date Time Temp Pulse Resp B/P (MAP) Pulse Ox O2 Delivery O2 Flow Rate FiO2 07/28/24 22:13 68 16 135/63 (87) 97 30 07/28/24 18:00 Mechanical Ventilator+ 07/28/24 16:00 99.5 99.5 Total Intake and Output 07/27/24 07/27/24 07/28/24 15:00 23:00 07:00 Intake Total 200 ml 1.155 ml 96.86 ml Balance 200 ml 1.155 ml 96.86 ml medications Current Medications Medications Dose Ordered Sig/Camacho Route Start Time Stop Time Status Last Admin Dose Admin Pantoprazole Sodium 40 mg DAILY IV 07/21/24 10:00 07/28/24 09:41 40 MG Vancomycin HCl 0 ml @ 0 mls/hr UD IV 07/21/24 02:15 Diagnostic Test (Pha) 1 strip Q6HR 07/21/24 18:00 07/28/24 17:54 1 STRIP Insulin Human Regular Q6HR SC 07/21/24 18:00 07/23/24 06:37 2 UNITS Dextrose 50 ml UD PRN IV 07/21/24 15:00 07/21/24 19:04 50 ML Enteral Nutritional Formula 1,000 ml 30ML/HR GT 07/23/24 16:45 07/27/24 22:12 1,000 ML Ceftriaxone Sodium/Dextrose 50 ml @ 50 mls/hr DAILY IV 07/25/24 10:00 07/28/24 09:41 50 MLS/HR Hydralazine HCl 10 mg Q6HP PRN IV 07/26/24 19:00 07/28/24 17:10 10 MG Lorazepam 0.25 mg Q4HP PRN IV 07/27/24 11:15 07/27/24 12:08 0.25 MG Dexmedetomidine HCl 400 mcg/ Dextrose 100 ml @ 2.31 mls/hr Q24H IV 07/27/24 16:00 07/28/24 17:30 3.465 MLS/HR objective Gen.: Patient lying in bed in medical ICU. Intubated on mechanical ventilator. Head: Normocephalic, atraumatic. Eyes: PERRLA. Ears: Normal external anatomy. Throat: Endotracheal tube and orogastric tube in place. Neck: Supple, trachea midline. Chest: Transmitted breath sounds bilaterally. Decreased air entry bilaterally. No wheezing. Bibasilar crackles. Cardiovascular: Positive S1, positive S2. Regular rate and rhythm. Abdomen: Positive bowel sounds in all 4 quadrants. Soft, nontender, nondistended. : Barron in place. Normal external genitalia. Rectal: Deferred. Skin: Warm, dry. Intact. Extremities: 2+ radial pulses bilaterally. No lower extremity edema. Neuro: Off sedation laboratory and microbiology Laboratory Tests 07/28/24 03:33 Test 07/28/24 03:33 Range/Units Serum Glucose 80 74-106 mg/dL Assessment/Plan Impression: Acute hypoxemic respiratory failure On mechanical ventilator Altered mental status End-stage renal disease, on hemodialysis Atelectasis Pulmonary edema Pericardial effusion Events: Remains on vent support On AC mode; RR 16, VT 460, PEEP 5, FiO2 30% CXR image and report reviewed. Devices in place. Moderate interval improvement in patchy bilateral middle and lower lung zone airspace disease and bilateral pleural effusions. ABG reviewed, alkalemia. Off Versed On Precedex drip. Continue antibiotics Monitor CBC SBT/LENARD CPAP in the AM with PS 8, PEEP 5. Hemodialysis per Nephrology. Monitor renal function. Monitor electrolytes. Supplement as necessary. Potassium supplementation Monitor ins and outs. CT chest demonstrated anasarca with pleural and pericardial effusion, cardiomegaly, patchy opacities, ?pneumonia. Labs and imaging reviewed. Rest of plan as noted below. Plan: s/p intubation on mechanical ventilator. On AC mode; RR 16, VT 460, PEEP 5, FiO2 30% Titrate FIO2 to keep O2 saturation above 90%. VAP bundle. Daily ABG and CXR while intubated Off sedation On Precedex Pressors as necessary for hemodynamic support Titrate to keep mean arterial pressure greater than 65 mmHg. HD and fluid removal per Nephrology Monitor renal function. Monitor electrolytes. Supplement as necessary. Monitor ins and outs. Antibiotics Nutrition Glycemic control GI prophylaxis DVT prophylaxis Prognosis: Poor given patient's multiple co-morbidities. Condition: Critical Rest of plan per hospitalist and other consultants. A total of 35 minutes of critical care time was spent reviewing the patient record, examining the patient, making a diagnostic and therapeutic plan, discussing this plan with the medical personnel, following up on diagnostic studies and following the patient for clinical stability excluding any and all procedures. At least 50% of this time was spent in direct, [id number] contact. Thank you, Dr. Christopher, for allowing me to participate in this patient's care. Further recommendations will depend on the patient's clinical course. Please do not hesitate to contact me if you have any questions or concerns. This medical document was created using an electronic medical record system with [employer] dictation system. Although these documentations are being carefully reviewed, there may still be some phonetic and typographical changes. The errors are purely typographical, due to imperfection on the software program, and do not reflect any compromise in the patient's medical care. Dietary Evaluation Review Comments: 1.Consider EN regime nepro@20ml/hr to provide 850 Kcal 39g Protein 349ml Free Water to meet nutritional needs 2.Consider PN regime NPO > 5 days Expected Outcomes/Goals: >75% nutritional intake, labs WNL Plan discussed with: Other (KALIN Fernandez) Critical Care Time(min): 35 SHE JANE MD Jul 28, 2024 22:32
[2024-07-29] VITALS (109 sets, daily range): BP systolic 102–178; BP diastolic 44–77; PULSE 60–122; RESP 13–28; TEMP 97.9–100.7; O2SAT 95–100
[2024-07-29 04:04] LABS: Basophils # (auto) 0 10 ^3/uL (0-0.2); Basophils % (auto) 0.3 % (0.0-2.0); Eosinophils # (auto) 0.1 10 ^3/uL (0-0.8); Hematocrit 30.4 % (36.0-46.0); Hemoglobin 10.6 g/dL (12.2-16.2); Lymphocytes # (auto) 0.7 10 ^3/uL (0.4-5.4); Lymphocytes % (auto) 7.9 % (10.0-50.0); Mean Corpuscular Hemoglobin 34.8 pg (28.0-32.0); Mean Corpuscular Hgb Conc. 34.8 g/dL (32.0-36.0); Mean Corpuscular Volume 99.9 fL (80.0-100.0); Monocytes # (auto) 0.6 10 ^3/uL (0-1.3); Monocytes % (auto) 7.7 % (0.0-12.0); Neutrophils # (auto) 6.9 10 ^3/uL (1.6-8.6); Neutrophils % (auto) 83.1 % (37.0-80.0); Nucleated Red Blood Cells % 0.2 %; Platelet Count (auto) 121 10^3/uL (140-450); Red Blood Cells 3.04 10^6/uL (4.0-5.20); Red Cell Distribution Width 15.2 % (11.8-14.3); White Blood Cell 8.3 10^3/uL (4.4-10.8)
[2024-07-29 04:22] LABS: Calcium 9.4 mg/dL (8.7-10.4); Chloride 100 mmol/L (98-107); Potassium 4.1 mmol/L (3.5-5.1); Sodium 140 mmol/L (136-145)
[2024-07-29 04:28] LABS: BUN/Creatinine Ratio 3.7 (10.0-20.0)
[2024-07-29 04:29] LABS: Magnesium 2.1 mg/dL (1.6-2.6)
[2024-07-29 04:32] LABS: Blood Urea Nitrogen 8 mg/dL (9-23); Glucose 114 mg/dL (74-106)
[2024-07-29 04:36] LABS: Anion Gap 15 (5-15); Carbon Dioxide 25 mmol/L (20-31)
[2024-07-29 04:39] LABS: Phosphorus 2.3 mg/dL (2.4-5.1)
--- NOTE | 2024-07-29 06:10 | DVH ---
CHEST RADIOGRAPH Indication: Central line placement confirmation. Technique: Single frontal view of the chest was obtained Comparison: XY CHEST PORTABLE on DOS: 07/28/24, XY CHEST PORTABLE on DOS: 07/27/24, XY CHEST PORTABLE o n DOS: 07/26/24, XY CHEST PORTABLE on DOS: 07/25/24, XY CHEST PORTABLE on DOS: 07/25/24, XY CHEST PORTAB LE on DOS: 07/28/24 FINDINGS: Lines and Tubes: Endotracheal tube, enteric tube and left internal jugular central venous catheter un changed in position. Lungs: Moderate interval improvement in patchy pulmonic airspace disease within the bilateral middle and lower lung zones. Pleura: Interval decrease in bilateral pleural effusions. No pneumothorax. Cardiomediastinal contours: Unremarkable Bones: Unremarkable IMPRESSION: 1. Moderate interval improvement in patchy bilateral pulmonic middle and lower lung zone airspace dis ease and bilateral pleural effusions.
[2024-07-29 08:10] LABS: Base Excess 2.1 mmol/L (-2.0-3.0)
--- NOTE | 2024-07-29 09:55 | DVHPN2 ---
Assessment/Plan Assessment/Plan ICU note 69 yo M with COPD group E on home O2, ESRD on HD TTS, CAD, s/p EVAR, IDDM, HTN, HLD, admiteed for N/V, found to be altered and was intubated for airway protection. seen today during rounds, taking breaths but long apneic pause. follows command yesterday. continue CPAP Physical exam Intubated, sedated on mechanical ventilation Not following command grimacing to pain mechanical breath sounds s1 s2 rrr abdomen soft trace LE edema L AVF Labs EKG imaging reviewed Bcx scx ecoli, MRSA screen + Assessment and plan Acute metabolic / uremic encephalopathy acute on chronic hypoxic respiratory failure req mechanical ventilation septic shock acute systolic heart failure HFrEf 30% COPD group E with exacerbation Type 2 DE demand ischamia ESRD on HD with fluid overload Pericardial effusion tamponade ruled out Acute pulmonary edema Pnemonia GP vs GN Pleural effusion possible cholangitis? transaminitis ascites anemia CKD thrombocytopenia IDDM s/p EVAR stage 2 sacral ulcer c/w mechanical ventilation maintain spo2 >94% c/w precedex to assist vent synchrony c/w [employer] per renal, aim for higher fluid removal c/w ceftriaxone c/w steroid, albuterol, ipatropium daily SAT/SBT monitor CBC switch to midline after HD keep glucose between 150-200 keep K 4, Ph 3, Mg 2 lines ETT NGT TLC - switch to midline after HD diet nepro dvt ppx lovenox gi ppx protonix code status full code goals of care curative critical care time 50 minutes Plan discussed with: Other My Orders Orders - TATI OROURKE MD Procedure Category Date Status Time Abg W/ Co-Ox RT 07/28/24 Logged 13:00 Ventilator Orders RT 07/28/24 Transmitted 11:30 Cleanse Wound With SUMMER 07/28/24 In Process Wound Clean 10:20 Date of Service: Jul 29, 2024 Billing Provider: TATI OROURKE MD Common Visit Codes: [id number] CARE 30-74 MIN TATI OROURKE MD Jul 29, 2024 09:55
[2024-07-29] MEDS: CARVEDILOL 3.125 MG TAB PO SCH (10:58)
--- NOTE | 2024-07-29 19:45 | DVHPN2 ---
Progress Note - Dictate Date Seen: Jul 29, 2024 Medical Necessity Reason Pt with a Central, PICC or Fol: Yes The following are medically ne: Central Line, Barron Catheter Reason for barron catheter: Strict I&O Subjective Patient was seen and evaluated in follow up in ICU. Chart/events reviewed. Patient remains intubated on mechanical ventilator support. 30% FiO2. Ongoing CPAP trial today. Patient is noted taking breaths but with long apneic pauses. vital signs Vital Sign Date Time Temp Pulse Resp B/P (MAP) Pulse Ox O2 Delivery O2 Flow Rate FiO2 07/29/24 19:00 64 16 129/55 (79) 100 07/29/24 18:32 30 07/29/24 18:00 Mechanical Ventilator+ 07/29/24 16:00 98.3 98.3 Total Intake and Output 07/28/24 07/28/24 07/29/24 15:00 23:00 07:00 Intake Total 85.085 ml 146.555 ml 172.720 ml Output Total 30 ml Balance 85.085 ml 146.555 ml 142.720 ml medications Current Medications Medications Dose Ordered Sig/Camacho Route Start Time Stop Time Status Last Admin Dose Admin Pantoprazole Sodium 40 mg DAILY IV 07/21/24 10:00 07/29/24 09:48 40 MG Vancomycin HCl 0 ml @ 0 mls/hr UD IV 07/21/24 02:15 Diagnostic Test (Pha) 1 strip Q6HR 07/21/24 18:00 07/29/24 18:04 1 STRIP Insulin Human Regular Q6HR SC 07/21/24 18:00 07/29/24 12:39 2 UNITS Dextrose 50 ml UD PRN IV 07/21/24 15:00 07/21/24 19:04 50 ML Enteral Nutritional Formula 1,000 ml 30ML/HR GT 07/23/24 16:45 07/27/24 22:12 1,000 ML Ceftriaxone Sodium/Dextrose 50 ml @ 50 mls/hr DAILY IV 07/25/24 10:00 07/29/24 09:48 50 MLS/HR Hydralazine HCl 10 mg Q6HP PRN IV 07/26/24 19:00 07/28/24 17:10 10 MG Lorazepam 0.25 mg Q4HP PRN IV 07/27/24 11:15 07/27/24 12:08 0.25 MG Dexmedetomidine HCl 400 mcg/ Dextrose 100 ml @ 2.31 mls/hr Q24H IV 07/27/24 16:00 07/28/24 17:30 3.465 MLS/HR Carvedilol 3.125 mg Q12HR PO 07/29/24 10:00 07/29/24 10:58 3.125 MG objective Vitals and nursing notes reviewed. General appearance: Ill-appearing, in no acute distress. HEENT: Normocephalic, atraumatic. Chest: Intubated. Heart: Regular rate; no murmur or gallop Abdomen: Soft, nontender, nondistended Musculoskeletal: No clubbing, no cyanosis, trace lower extremity edema Skin: Warm, moist. Neurological: Off sedation. Unable to assess. laboratory and microbiology Laboratory Tests 07/29/24 03:20 Test 07/29/24 03:20 Range/Units Serum Glucose 114 H 74-106 mg/dL Problem List Metabolic encephalopathy secondary to sepsis Acute respiratory failure Cardiorenal syndrome type 3 ESRD on hemodialysis Pericardial effusion Anasarca NSTEMI Transaminitis Normocytic anemia Diabetes - uncontrolled (hemoglobin A1c 7.1%) Hypertension Dyslipidemia Assessment/Plan Agree with current supportive medical care. Cardiology and vent/respiratory care management deferred. Neurology following. Next dialysis 07/30- UF 2.5L as tolerated. Epogen 10,000 u IV x once with dialysis treatment. Albumin and Levo as needed for BP support. IV antibiotics as ordered. GI / DVT prophylaxis. Nutritional support. Additional plan as per the hospital course. Dietary Evaluation Review Comments: 1.Consider EN regime nepro@20ml/hr to provide 850 Kcal 39g Protein 349ml Free Water to meet nutritional needs 2.Consider PN regime NPO > 5 days Expected Outcomes/Goals: >75% nutritional intake, labs WNL Plan discussed with: Other (RN) JOSE LUIS SMITH DO Jul 29, 2024 19:45
--- NOTE | 2024-07-29 22:30 | DVHPN2 ---
Progress Note - Dictate Date Seen: Jul 29, 2024 Medical Necessity Reason Pt with a Central, PICC or Fol: Yes The following are medically ne: Central Line, Barron Catheter Reason for barron catheter: Strict I&O Subjective Patient was seen and evaluated in follow up in the ICU. Patient is intubated on ventilator. 30% FiO2. Patient on ongoing CPAP trial today. Patient takes breaths but with long apneic pauses. Chest x-ray shows moderate interval improvement in patchy bilateral pulmonic middle and lower lung zone airspace disease and bilateral pleural effusions. vital signs Vital Sign Date Time Temp Pulse Resp B/P (MAP) Pulse Ox O2 Delivery O2 Flow Rate FiO2 07/29/24 11:58 76 149/61 07/29/24 11:54 16 98 30 07/29/24 10:00 Mechanical Ventilator+ 07/29/24 08:00 98.0 98.0 Total Intake and Output 07/28/24 07/28/24 07/29/24 15:00 23:00 07:00 Intake Total 85.085 ml 146.555 ml 172.720 ml Output Total 30 ml Balance 85.085 ml 146.555 ml 142.720 ml medications Current Medications Medications Dose Ordered Sig/Camacho Route Start Time Stop Time Status Last Admin Dose Admin Pantoprazole Sodium 40 mg DAILY IV 07/21/24 10:00 07/29/24 09:48 40 MG Vancomycin HCl 0 ml @ 0 mls/hr UD IV 07/21/24 02:15 Diagnostic Test (Pha) 1 strip Q6HR 07/21/24 18:00 07/29/24 12:00 1 STRIP Insulin Human Regular Q6HR SC 07/21/24 18:00 07/29/24 12:39 2 UNITS Dextrose 50 ml UD PRN IV 07/21/24 15:00 07/21/24 19:04 50 ML Enteral Nutritional Formula 1,000 ml 30ML/HR GT 07/23/24 16:45 07/27/24 22:12 1,000 ML Ceftriaxone Sodium/Dextrose 50 ml @ 50 mls/hr DAILY IV 07/25/24 10:00 07/29/24 09:48 50 MLS/HR Hydralazine HCl 10 mg Q6HP PRN IV 07/26/24 19:00 07/28/24 17:10 10 MG Lorazepam 0.25 mg Q4HP PRN IV 07/27/24 11:15 07/27/24 12:08 0.25 MG Dexmedetomidine HCl 400 mcg/ Dextrose 100 ml @ 2.31 mls/hr Q24H IV 07/27/24 16:00 07/28/24 17:30 3.465 MLS/HR Carvedilol 3.125 mg Q12HR PO 07/29/24 10:00 07/29/24 10:58 3.125 MG objective GENERAL: Ill appearing, intubated on ventilator. LUNGS: Decreased breath sounds. CARDIOVASCULAR: Heart sounds are good. ABDOMEN: Soft. EXT: BLE edema. laboratory and microbiology Laboratory Tests 07/29/24 03:20 Test 07/29/24 03:20 Range/Units Serum Glucose 114 H 74-106 mg/dL Problem List NSTEMI likely type 2 FL. Acute on chronic HFpEF. Acute hypoxic respiratory failure. Pericardial effusion, recurrent. Sepsis, suspected pneumonia. HTN. HLD. 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 ESRD on HD. HLD. Gram-negative bacteremia. Diabetes mellitus type 2. Assessment/Plan Continued all current supportive medical care. Vasopressors for hemodynamic support. GI prophylactics. IV antibiotics as ordered. Additional plan as per the hospital course. Critical care time of 45 minutes provided to include time spent evaluation of patient at bedside, when appropriate patient/family education for diagnosis, treatment plan, review of pertinent medical information and discussion of care with specialty providers and PCP. Mechanical ventilator parameters, treatment and adjustments have personally been reviewed by me and treatment plan by testing shaking shipping has also been reviewed. Dietary Evaluation Review Comments: 1.Consider EN regime nepro@20ml/hr to provide 850 Kcal 39g Protein 349ml Free Water to meet nutritional needs 2.Consider PN regime NPO > 5 days Expected Outcomes/Goals: >75% nutritional intake, labs WNL Plan discussed with: Other DEWEY SMITH MD Jul 29, 2024 13:22
--- NOTE | 2024-07-29 23:34 | DVHPN2 ---
Progress Note - Dictate Date Seen: Jul 29, 2024 Medical Necessity Reason Pt with a Central, PICC or Fol: Yes The following are medically ne: Central Line, Barron Catheter Reason for barron catheter: Strict I&O Subjective Ms. Em is a 69 years old right-handed female with a history of hypertension, diabetes, the patient came to the hospital on 07/20/2024 with a chief come of shortness of breath. At this time, she was intubated sedated, on pressor drip, responds to stroke painful stimuli, history is obtained from chart review I saw on 12/20/2016 for ALOC (UTI, hypotension) I have seen and examined the patient, I have discussed with her nurse, she is intubated, but awake, she was able to follow verbal commands if she understands The left pupil is bigger, and reactive She can move the arms and the legs UDS, 07/21/2024: Negative Plasma alcohol, 07/20/2024: <3 Urinalysis, : WBC: 15, urine leukocyte esterase: Negative Blood culture, 07/20/2024: E coli Respiratory culture, 07/20/2024: E coli ABG, 07/20/2024: Acidosis WBC/Hb/PLT, 07/23/2024: 3.1/10.4/104/98 PT/INR/PTT, 07/20/2024: 15.1/1.48/ BUNs/CR, 07/20/2024: 78/7.58, 07/22/2024: 19/8.21, 07/23/2024: 64/6.3 Lactic acid, 07/08/2024, 4.3, 3.6 Total bilirubin/AST/ALT/AP, 07/22/2024: 1/73/18/157 TG/HDL/LDL/HDL, 07/20/2024: 232/167/75/27 Vitamin B12, 12/2016:1069, 12/22/16: >2000 Folic acid, 12/2016:10.79 TSH, 12/2016:0.69 EEG, 12/21/16: Normal Carotid Doppler, 07/21/2024: Very limited examination. Unable to evaluate the left carotid system and unable to visualize the right common carotid artery. The degree of carotid stenosis can not be determined on this examination. Findings in the visualized portions of the right carotid system as described above Arterial Doppler, legs, 07/24/2024: 20-49% stenosis of the right common femoral artery based on peak systolic velocity criteria. No hemodynamically significant stenosis based on peak systolic velocity criteria on the left. Bilateral abnormal monophasic arterial waveforms suggest underlying peripheral arterial disea Echocardiogram, 07/22/2024: GLOBAL PERICARDIAL EFFUSION IN RANGE OF 1.0 TO 1.5 CM IN WIDTH NO RV COLLAPSE NO EVIDENCE OF PERICARDIAL TAMPONADE DILATED ALL CARDIAC CHAMBERS AND ARE HYPOKINETIC LV EF IS 30% AND IS MODERATELY REDUCED MODERATELY DILATED RV AND IS HYPOKINETIC NORMAL VALVES Chest, 07/20/2024: Patient has a pericardial effusion which could cause tamponade I recommend cardiac echo. There is a large consolidate involving the right lower lobe and there is pulmonary vascular congestion as well ( Endotracheal tube is below the clavicles just above the aortic arch) Chest x-ray, 07/23/2024: Increasing congestive heart failure. Chest x-ray, 07/28/2024: Moderate interval improvement in patchy bilateral pulmonic middle and lower lung zone airspace disease and bilateral pleural effusions CT head, 07/20/2024: No acute intracranial abnormality vital signs Vital Sign Date Time Temp Pulse Resp B/P (MAP) Pulse Ox O2 Delivery O2 Flow Rate FiO2 07/29/24 22:16 69 16 140/50 (80) 99 30 07/29/24 20:00 Mechanical Ventilator+ 07/29/24 16:00 98.3 98.3 Total Intake and Output 07/28/24 07/28/24 07/29/24 15:00 23:00 07:00 Intake Total 85.085 ml 146.555 ml 172.720 ml Output Total 30 ml Balance 85.085 ml 146.555 ml 142.720 ml medications Current Medications Medications Dose Ordered Sig/Camacho Route Start Time Stop Time Status Last Admin Dose Admin Pantoprazole Sodium 40 mg DAILY IV 07/21/24 10:00 07/29/24 09:48 40 MG Vancomycin HCl 0 ml @ 0 mls/hr UD IV 07/21/24 02:15 Diagnostic Test (Pha) 1 strip Q6HR 07/21/24 18:00 07/29/24 18:04 1 STRIP Insulin Human Regular Q6HR SC 07/21/24 18:00 07/29/24 12:39 2 UNITS Dextrose 50 ml UD PRN IV 07/21/24 15:00 07/21/24 19:04 50 ML Enteral Nutritional Formula 1,000 ml 30ML/HR GT 07/23/24 16:45 07/27/24 22:12 1,000 ML Ceftriaxone Sodium/Dextrose 50 ml @ 50 mls/hr DAILY IV 07/25/24 10:00 07/29/24 09:48 50 MLS/HR Hydralazine HCl 10 mg Q6HP PRN IV 07/26/24 19:00 07/28/24 17:10 10 MG Lorazepam 0.25 mg Q4HP PRN IV 07/27/24 11:15 07/27/24 12:08 0.25 MG Dexmedetomidine HCl 400 mcg/ Dextrose 100 ml @ 2.31 mls/hr Q24H IV 07/27/24 16:00 07/28/24 17:30 3.465 MLS/HR Carvedilol 3.125 mg Q12HR PO 07/29/24 10:00 07/29/24 10:58 3.125 MG objective The patient is well-nourished and well-developed with no distress. The patient is intubated MENTAL STATUS: Subjective CRANIAL NERVES: Pupils are reactive, left pupil is slightly bigger and is s/p surgery.There are corneal reflexes and doll's eyes phenomenon. No signs of facial weakness. There are gagging or coughing reflexes. There is no abnormal vascular dilatation, skin secretion in face SENSATION: Okay to light touch and pain stimuli. MOTOR: Normal tone in the upper and lower extremity. Normal muscle bulk. No fasciculations. He moves the arms and legs REFLEXES: Deep tendon reflexes are symmetrical. No pathological reflexes. CEREBELLAR/COORDINATION: Deferred GAIT/STATION: deferred laboratory and microbiology Laboratory Tests 07/29/24 03:20 Test 07/29/24 03:20 Range/Units Serum Glucose 114 H 74-106 mg/dL Problem List Anisocoria with left-sided slightly bigger, uncertain clinical significance Left surgical pupil Altered mental status Hypoxic encephalopathy Metabolic encephalopathy Acute respiratory failure Pneumonia Acidosis, leukocytosis, Sepsis, septic shock ? Diabetic polyneuropathy Rule out other central nervous system pathology She keeps improving Assessment/Plan Monitoring Supportive treatment Follow-up labs ICU care Stabilize vitals/pressor drip Record support/vent management Oxygen IV antibiotics DVT prophylaxis/heparin 5000 units subQ q.12 hours GI prophylaxis/Protonix 40 mg daily Further address possible diabetic polyneuropathy late CPAP trial More recommendation per clinical course This medical document was created using an electronic medical record system with [employer] dictation system. Although this document has been carefully reviewed, there may still be some phonetic and typographical errors. These areas are purely typographical due to imperfections of the software programs, and do not reflect any compromise in the patient's medical care Prognosis guarded Dietary Evaluation Review Comments: 1.Consider EN regime nepro@20ml/hr to provide 850 Kcal 39g Protein 349ml Free Water to meet nutritional needs 2.Consider PN regime NPO > 5 days Expected Outcomes/Goals: >75% nutritional intake, labs WNL Plan discussed with: Other Critical Care Time(min): 30 FLORENTINO CLARK MD Jul 29, 2024 23:34
--- NOTE | 2024-07-29 23:50 | DVHPN2 ---
Progress Note - Dictate Date Seen: Jul 29, 2024 Medical Necessity Reason Pt with a Central, PICC or Fol: Yes The following are medically ne: Central Line, Barron Catheter Reason for barron catheter: Strict I&O Subjective Patient seen and examined at bedside. Intubated on mechanical ventilator. Overnight events reviewed. vital signs Vital Sign Date Time Temp Pulse Resp B/P (MAP) Pulse Ox O2 Delivery O2 Flow Rate FiO2 07/29/24 22:16 69 16 140/50 (80) 99 30 07/29/24 20:00 Mechanical Ventilator+ 07/29/24 16:00 98.3 98.3 Total Intake and Output 07/28/24 07/28/24 07/29/24 15:00 23:00 07:00 Intake Total 85.085 ml 146.555 ml 172.720 ml Output Total 30 ml Balance 85.085 ml 146.555 ml 142.720 ml medications Current Medications Medications Dose Ordered Sig/Camacho Route Start Time Stop Time Status Last Admin Dose Admin Pantoprazole Sodium 40 mg DAILY IV 07/21/24 10:00 07/29/24 09:48 40 MG Vancomycin HCl 0 ml @ 0 mls/hr UD IV 07/21/24 02:15 Diagnostic Test (Pha) 1 strip Q6HR 07/21/24 18:00 07/29/24 18:04 1 STRIP Insulin Human Regular Q6HR SC 07/21/24 18:00 07/29/24 12:39 2 UNITS Dextrose 50 ml UD PRN IV 07/21/24 15:00 07/21/24 19:04 50 ML Enteral Nutritional Formula 1,000 ml 30ML/HR GT 07/23/24 16:45 07/27/24 22:12 1,000 ML Ceftriaxone Sodium/Dextrose 50 ml @ 50 mls/hr DAILY IV 07/25/24 10:00 07/29/24 09:48 50 MLS/HR Hydralazine HCl 10 mg Q6HP PRN IV 07/26/24 19:00 07/28/24 17:10 10 MG Lorazepam 0.25 mg Q4HP PRN IV 07/27/24 11:15 07/27/24 12:08 0.25 MG Dexmedetomidine HCl 400 mcg/ Dextrose 100 ml @ 2.31 mls/hr Q24H IV 07/27/24 16:00 07/28/24 17:30 3.465 MLS/HR Carvedilol 3.125 mg Q12HR PO 07/29/24 10:00 07/29/24 10:58 3.125 MG objective Gen.: Patient lying in bed in medical ICU. Intubated on mechanical ventilator. Head: Normocephalic, atraumatic. Eyes: PERRLA. Ears: Normal external anatomy. Throat: Endotracheal tube and orogastric tube in place. Neck: Supple, trachea midline. Chest: Transmitted breath sounds bilaterally. Decreased air entry bilaterally. No wheezing. Bibasilar crackles. Cardiovascular: Positive S1, positive S2. Regular rate and rhythm. Abdomen: Positive bowel sounds in all 4 quadrants. Soft, nontender, nondistended. : Barron in place. Normal external genitalia. Rectal: Deferred. Skin: Warm, dry. Intact. Extremities: 2+ radial pulses bilaterally. No lower extremity edema. Neuro: Off sedation laboratory and microbiology Laboratory Tests 07/29/24 03:20 Test 07/29/24 03:20 Range/Units Serum Glucose 114 H 74-106 mg/dL Assessment/Plan Impression: Acute hypoxemic respiratory failure On mechanical ventilator Altered mental status End-stage renal disease, on hemodialysis Atelectasis Pulmonary edema Pericardial effusion Events: Remains on vent support On AC mode; RR 16, VT 450, PEEP 5, FiO2 30% Patient failed CPAP d/t tachypnea and increased work of breathing. CXR image and report reviewed. Devices in place. Moderate interval improvement in patchy bilateral pulmonic middle and lower lung zone airspace disease and bilateral pleural effusions. ABG reviewed, alkalemia. On Precedex drip. Continue antibiotics Monitor CBC Taper sedation SBT/LENARD CPAP in the AM with PS 8, PEEP 5. Hemodialysis per Nephrology. Monitor renal function. Monitor electrolytes. Supplement as necessary. Monitor ins and outs. Labs and imaging reviewed. Rest of plan as noted below. Plan: s/p intubation on mechanical ventilator. On AC mode; RR 16, VT 450, PEEP 5, FiO2 30% Titrate FIO2 to keep O2 saturation above 90%. VAP bundle. Daily ABG and CXR while intubated Off sedation On Precedex Pressors as necessary for hemodynamic support Titrate to keep mean arterial pressure greater than 65 mmHg. HD and fluid removal per Nephrology Monitor renal function. Monitor electrolytes. Supplement as necessary. Monitor ins and outs. Antibiotics Nutrition Glycemic control GI prophylaxis DVT prophylaxis Prognosis: Poor given patient's multiple co-morbidities. Condition: Critical Rest of plan per hospitalist and other consultants. A total of 35 minutes of critical care time was spent reviewing the patient record, examining the patient, making a diagnostic and therapeutic plan, discussing this plan with the medical personnel, following up on diagnostic studies and following the patient for clinical stability excluding any and all procedures. At least 50% of this time was spent in direct, [id number] contact. Thank you, Dr. Christopher, for allowing me to participate in this patient's care. Further recommendations will depend on the patient's clinical course. Please do not hesitate to contact me if you have any questions or concerns. This medical document was created using an electronic medical record system with [employer] dictation system. Although these documentations are being carefully reviewed, there may still be some phonetic and typographical changes. The errors are purely typographical, due to imperfection on the software program, and do not reflect any compromise in the patient's medical care. Dietary Evaluation Review Comments: 1.Consider EN regime nepro@20ml/hr to provide 850 Kcal 39g Protein 349ml Free Water to meet nutritional needs 2.Consider PN regime NPO > 5 days Expected Outcomes/Goals: >75% nutritional intake, labs WNL Plan discussed with: Other (KALIN Hikcs) Critical Care Time(min): 35 SHE JANE MD Jul 29, 2024 23:50
[2024-07-30] VITALS (105 sets, daily range): BP systolic 89–193; BP diastolic 37–79; PULSE 63–104; RESP 11–27; TEMP 98–98.7; O2SAT 91–100
[2024-07-30 04:08] LABS: Basophils # (auto) 0.1 10 ^3/uL (0-0.2); Basophils % (auto) 0.9 % (0.0-2.0); Eosinophils # (auto) 0.1 10 ^3/uL (0-0.8); Eosinophils % (auto) 1.3 % (0.0-7.0); Hematocrit 34.1 % (36.0-46.0); Hemoglobin 11.2 g/dL (12.2-16.2); Lymphocytes # (auto) 0.8 10 ^3/uL (0.4-5.4); Lymphocytes % (auto) 10.4 % (10.0-50.0); Mean Corpuscular Hgb Conc. 32.9 g/dL (32.0-36.0); Mean Corpuscular Volume 100.4 fL (80.0-100.0); Monocytes # (auto) 0.6 10 ^3/uL (0-1.3); Monocytes % (auto) 8.5 % (0.0-12.0); Neutrophils # (auto) 5.7 10 ^3/uL (1.6-8.6); Neutrophils % (auto) 78.9 % (37.0-80.0); Nucleated Red Blood Cells % 0.2 %; Platelet Count (auto) 125 10^3/uL (140-450); Red Blood Cells 3.39 10^6/uL (4.0-5.20); Red Cell Distribution Width 15.9 % (11.8-14.3); White Blood Cell 7.3 10^3/uL (4.4-10.8)
[2024-07-30 04:15] LABS: Chloride 102 mmol/L (98-107); Potassium 3.7 mmol/L (3.5-5.1); Sodium 140 mmol/L (136-145)
[2024-07-30 04:16] LABS: Anion Gap 9 (5-15); Calcium 9.1 mg/dL (8.7-10.4); Carbon Dioxide 29 mmol/L (20-31)
[2024-07-30 04:21] LABS: BUN/Creatinine Ratio 6.3 (10.0-20.0); Blood Urea Nitrogen 21 mg/dL (9-23)
[2024-07-30 04:32] LABS: Glucose 140 mg/dL (74-106)
--- NOTE | 2024-07-30 05:11 | DVH ---
EXAM: XR Chest, 1 View CLINICAL INDICATION: patient intubated TECHNIQUE: Frontal view of the chest. COMPARISON: XY CHEST XRAY 1 VIEW on DOS: 07/29/24, XY CHEST PORTABLE on DOS: 07/28/24, XY CHEST MG BLE on DOS: 07/27/24, XY CHEST PORTABLE on DOS: 07/26/24, XY CHEST PORTABLE on DOS: 07/25/24 FINDINGS: LUNGS AND PLEURAL SPACES: Patchy airspace disease of the right lower lobe, likely pneumonia, unchan ged. No pneumothorax. HEART: Unremarkable. No cardiomegaly. MEDIASTINUM: Unremarkable. Normal mediastinal contour. BONES/JOINTS: Unremarkable. No acute fracture. TUBES, LINES AND DEVICES: Stable tubes and lines. OTHER FINDINGS: . IMPRESSION: Patchy airspace disease of the right lower lobe, likely pneumonia, unchanged.
--- NOTE | 2024-07-30 07:40 | DVHPNRES ---
Progress Note Date Seen: Jul 30, 2024 Resident Creating Document: DAGMAR DEL CASTILLO RESIDENT Medical Necessity Reason Pt with a Central, PICC or Fol: Yes The following are medically ne: Central Line, Barron Catheter Reason for barron catheter: Strict I&O Subjective Review of Systems Patient is 69 years old female with past medical history of hypertension, dyslipidemia, diabetes mellitus type 2, COPD on home oxygen [place] O2, ESRD on hemodialysis 3 times per week Tuesday//Tuesday, history of CAD, [place], chronic anemia, history of AV fistula in the left arm, EVAR to thoracic or abdominal aorta(evidence in CT scan) was brought to the hospital due to cough and nausea and vomiting. Patient had productive cough with yellow phlegm, nausea and vomiting and diarrhea and abdominal pain before patient came in. As per brother done patient's alcoholic, drinks alcohol half to 1 L every day for beers every day, drinks Tequila. On arrival patient had altered level of consciousness, became unresponsive, [place] coma score was 3/15, required emergency endotracheal intubation. Patient was previously admitted at [facility] in June 08, 2024, April 22, 2024, March 29 2017, December 19, 2016. Most recent hospitalization was due to malfunction of the AV fistula along with dizziness, at the time patient was on home oxygen 4 liter/minute. On her previous admission Dr. Massey, interventional radiologist attempted to fix non functioning AV fistula 06/11/2024 but patient refused repeatedly and requested to be discharged home. Was also admitted on 22/04/24 due to intractable nausea and vomiting and abdominal pain. Patient was found to have right basilic DVT, possible ischemic colitis likely due to fluid overload.. Echo on 04/26/2024 revealed LVEF 50%, moderate pericardial effusion.Moderate to severely elevated right ventricular systolic pressure at 57 mm of mercury. Moderate mitral valve and tricuspid valve regurgitation. Discharged with a diagnosis of pulmonary edema, suspected cardiogenic shock. Admission initial lab workup revealed leukocytosis with WBC 11.6, increased anion gap 18, elevated creatinine 7.58, BUN 78, Troponin I 170> 146> 141, BNP > 5000 HGB A1c 7.1, lactic acidosis with lactic acid 4.3 elevated serum bilirubin 1.2, elevated AST 59 ALT 20, elevated> alkaline phosphatase 218, triglyceride 232, cholesterol 167, LDL 75, HDL 27. UDS negative. Influenza type a and B, SARS COVID negative. Urinalysis negative for UTI. Initial ABG revealed ABG 7.31, pCO2 43.6, PO2 83.2, bicarbonate 21.8. Initial CT Head scan revealed no acute intracranial abnormality. CXR revealed- Moderate cardiomegaly. Prominent interstitial markings bilaterally. Small bilateral pleural effusions with superimposed infection not excluded no pneumothorax. CT chest, Abdomen and Pelvis revealed-Findings consistent with fluid overload state which include cardiomegaly, pericardial effusion, pleural effusions, ascites, and anasarca. Scattered consolidations throughout the bilateral lungs. Moderate periportal edema which has a broad differential that includes viral hepatitis or acute cholangitis x-ray on 07/20/2024 revealed-Patient has a pericardial effusion which could cause tamponade I recommend cardiac echo. There is a large consolidate involving the right lower lobe and there is pulmonary vascular congestion as well. Carotid Doppler on 07/21/2024 revealed- Very limited examination. Unable to evaluate the left carotid system and unable to visualize the right common carotid artery. The degree of carotid stenosis can not be determined on this examination. Findings in the visualized portions of the right carotid system as described above. Single organ ultrasound on 07/21/2024 revealed-No gallstones or sludge.Nonspecific thickened/ edematous appearance to the gallbladder wall. May be related to 3rd spacing. Echo 2D on 07/22/2024 revealed LVEF 30%, moderately reduced, moderately dilated RV, hypokinetic, global pericardial effusion, in range of 1-1.5 cm. Dilated all cardiac chambers and are hypokinetic. Blood culture on 07/20/2024 revealed E coli. Respiratory culture on 0 07/20/24 also grew E coli. Urine culture no growth. MRSA screening positive. Repeat Blood culture on 07/22/24 shows no growth. Patient was seen today for clinical evaluation. Labs than chart reviewed. Overnight patient's BP ranging from 107-178/47-64 , pulse 62-87, temperature 97.-100.7 Patient had hemodialysis yesterday, 1 L of fluid was removed No pressor or sedatives at this moment On 07/29/24 10/30/2024-failed CPA trial due to patient tachypneic, increased work of breathing Plan is to do a CPAP trial at a.m. On 07/27/2024- Patient had failed CPAP trial today twice, patient had apneic episode 07/30/2024-ABG PH 7.51, PCO2 31, PO2 95.6, HCO3- 24.7 WBC trending > 11.6> 8.2> 17.6> 13.1> 8.6> 5.5> 5.9> 7.1> 8.1> 8.3> 7.3 hemoglobin 12.8> 11.8> 10.4> 10.2> 9.8> 10.2> 10.2>> 10.5 10.6> 11.2 Platelet 225> 165> 154> 104> 79> 54> 72> 83> 71> 121> 125 Sodium 134>> 132> 132> 132> 136> 135> 139> 141> 140 potassium> 4.2> 3.7>> 4.1> 3.6> 3.8> 3.5> 3.7> 3.1> 3.1> 3.3> 4.1 >3.7 Anion gap> 18> 17> 16> 13> 16> 15 Serum creatinine 7.58> 7.28> 8.21> 6.30> 6.75> 6.83> 4.99> 5.75> 3.97> 0.44> 2.45> 2.17> 3.34 BUN> 78> 74 >90> 64> 69> 44> 29> 12> 8> 21 Blood culture on 07/20/2024 revealed E coli. Respiratory culture on 07/20/24 also grew E coli. Urine culture no growth. MRSA screening positive. Repeat Blood culture on 07/22/24 shows no growth. Plan is to take cough central line and put a midline or PICC line Provider called and talked to patient's brother Roland [phone], discussed patient's current medical condition, plan of care and answered his questions Objective vital signs Vital Sign Date Time Temp Pulse Resp B/P (MAP) Pulse Ox O2 Delivery O2 Flow Rate FiO2 07/30/24 06:45 87 16 132/61 (84) 99 07/30/24 06:41 30 07/30/24 06:00 Mechanical Ventilator+ 07/30/24 04:00 98.1 98.1 Total Intake and Output 07/29/24 07/29/24 07/30/24 15:00 23:00 07:00 Intake Total 61.550 ml 71.550 ml 270.085 ml Output Total 0 ml 0 ml Balance 61.550 ml 71.550 ml 270.085 ml medications Current Medications Medications Dose Ordered Sig/Camacho Route Start Time Stop Time Status Last Admin Dose Admin Pantoprazole Sodium 40 mg DAILY IV 07/21/24 10:00 07/29/24 09:48 40 MG Vancomycin HCl 0 ml @ 0 mls/hr UD IV 07/21/24 02:15 Diagnostic Test (Pha) 1 strip Q6HR 07/21/24 18:00 07/30/24 06:21 1 STRIP Insulin Human Regular Q6HR SC 07/21/24 18:00 07/30/24 00:37 3 UNITS Dextrose 50 ml UD PRN IV 07/21/24 15:00 07/21/24 19:04 50 ML Enteral Nutritional Formula 1,000 ml 30ML/HR GT 07/23/24 16:45 07/27/24 22:12 1,000 ML Ceftriaxone Sodium/Dextrose 50 ml @ 50 mls/hr DAILY IV 07/25/24 10:00 07/29/24 09:48 50 MLS/HR Hydralazine HCl 10 mg Q6HP PRN IV 07/26/24 19:00 07/28/24 17:10 10 MG Lorazepam 0.25 mg Q4HP PRN IV 07/27/24 11:15 07/27/24 12:08 0.25 MG Dexmedetomidine HCl 400 mcg/ Dextrose 100 ml @ 2.31 mls/hr Q24H IV 07/27/24 16:00 07/30/24 06:01 1.155 MLS/HR Carvedilol 3.125 mg Q12HR PO 07/29/24 10:00 07/29/24 10:58 3.125 MG Examination General examination- patient on mechanical ventilation, sedation, sacral wound present HEENT- PEERLA, no acute nasal discharge Cardiovascular- S1-S2 audible, rate and rhythm regular, no murmur Respiratory- CTAB, no wheeze or rhonchi Gastrointestinal-nontender, bowel sound+. Nondistended Musculoskeletal-no acute joint swelling or tenderness or redness Lower extremity- no leg edema Neurological- cranial nerves intact, no acute dysarthria or dysphagia Skin- no acute rash or purpura laboratory and microbiology Laboratory Tests 07/30/24 03:35 Test 07/30/24 03:35 Range/Units Serum Glucose 140 H 74-106 mg/dL Microbiology Date/Time Source Procedure Growth Status 07/22/24 15:49 Blood Blood Culture - Final NO GROWTH AFTER 5 DAYS OF INCUBATION. Complete 07/22/24 01:47 Nose MRSA Screen - Final Complete 07/21/24 12:40 Voided Urine Urine Culture - Final Complete 07/20/24 21:29 Sputum Gram Stain - Final Complete 07/20/24 21:29 Respiratory Culture - Final Escherichia coli Complete Problem List/Assessment/Plan Problem List/Assessment/Plan Assessment and plan ABG on 07/27/2024-pH 7.50, pCO2 26.3, PO2 81.8, bicarbonate 20.2, recommended RT to readjust the setting for ventilation On 07/27/2024- Patient had failed CPAP trial today twice, patient had apneic episode Neurology Metabolic encephalopathy/uremic encephalopathy/hypoxic encephalopathy Patient on mechanical ventilation, on sedation Continue current management - avoid dehydration and nephrotoxic drugs Cardiovascular Septic shock Acute heart failure HFrEF, EF-30%. NSTEMI type 2 demand lead ischemia Acute pulmonary edema likely due to volume overload Pericardial effusion, recurrent -Status post EVAR to thoracic / abdominal aorta Anasarca Suspected cardiac tamponade -H/O HTN, - HLD - Echo 2D on 10/22/2024 revealed LVEF 30%, moderately reduced, moderately dilated RV, hypokinetic, global pericardial effusion, in range of 1-1.5 cm. Dilated all cardiac chambers and are hypokinetic -continue current management Respiratory Acute hypoxic respiratory failure due to acute pulmonary edema/volume overload Bilateral pleural effusion -suspected acute exertional COPD Suspected pneumonia Gram-positive versus Gram-negative B/L Lower lung consolidation Pleural effusion - apneic episode during CPAP trial on 07/27/2024 - Blood culture on 07/20/2024 revealed E coli. Respiratory culture on 07/20/24 also grew E coli. -repeat blood culture on 07/22/2024 preliminary report no growth MRSA screening positive -continue ceftriaxone as prescribed as prescribed -mupirocin as prescribed Gastroenterology -suspected viral hepatitis/cholangitis -ascites -transaminitis -continue pantoprazole 40 mg IV daily Genitourinary/renal -ESRD on HD -fluid overload likely due to ESRD - avoid dehydration and nephrotoxic drugs Hemato oncology --anemia of chronic disease -thrombocytopenia - discontinue heparin due to thrombocytopenia -leukocytosis -monitor CBC Infectious -septic shock -leukocytosis -pneumonia Gram-positive versus Gram-negative - Blood culture on 07/20/2024 revealed E coli. Respiratory culture on 07/20/24 also grew E coli. -blood culture on 0 07/22/24 preliminary reports no growth MRSA screening positive -urine culture negative -continue ceftriaxone 2 g IV daily -mupirocin as prescribed Endocrine/metabolic disorder Metabolic acidosis Lactic acidosis Dilutional hyponatremia Diabetes mellitus type 2 -hyperlipidemia -malnutrition Skin/alimentary Drips -Precedex Lines- ETT- Goals of care/advance care planning Code status ; discussed >15 minutes PUD prophylaxis: Pantoprazole DVT prophylaxis: Discontinued heparin due to thrombocytopenia Plan discussed with Dr. Marc , nursing staff, Roland (Brother) Total time spent on patient evaluation, chart review, assessment and plan, total critical time spent including monitoring mechanical ventilation, CPAP trial 83 minutes: Plan discussed with: Other (RN, Brother ) Dietary Evaluation Review Comments: 1.Consider EN regime nepro@20ml/hr to provide 850 Kcal 39g Protein 349ml Free Water to meet nutritional needs 2.Consider PN regime NPO > 5 days Expected Outcomes/Goals: >75% nutritional intake, labs WNL Date of Service: Jul 30, 2024 Billing Provider: JOSIANE GALEAS MD Common Visit Codes: [id number] CARE 30-74 MIN, [id number] CARE-EACH +30MIN DAGMAR DEL CASTILLO Jul 30, 2024 07:40 JOSIANE GALEAS MD Jul 31, 2024 13:24
[2024-07-30 08:12] LABS: Base Excess 2.3 mmol/L (-2.0-3.0)
--- NOTE | 2024-07-30 09:29 | DVHPN2 ---
Progress Note - Dictate Date Seen: Jul 30, 2024 Medical Necessity Reason Pt with a Central, PICC or Fol: Yes The following are medically ne: Central Line, Barron Catheter Reason for barron catheter: Strict I&O Subjective Ms. Em is a 69 years old right-handed female with a history of hypertension, diabetes, the patient came to the hospital on 07/20/2024 with a chief come of shortness of breath. At this time, she was intubated sedated, on pressor drip, responds to stroke painful stimuli, history is obtained from chart review I saw on 12/20/2016 for ALOC (UTI, hypotension) I have seen and examined the patient, I have discussed with her nurse, her cousin is in the room with her, she is intubated, but awake, she follows verbal commands The pupils are equal, left: Two, right to have not 3 mm, reactive both She can move the arms and the legs. The chart agree today shows no obvious improvement UDS, 07/21/2024: Negative Plasma alcohol, 07/20/2024: <3 Urinalysis, 03: WBC: 15, urine leukocyte esterase: Negative Blood culture, 07/20/2024: E coli Respiratory culture, 07/20/2024: E coli ABG, 07/20/2024: Acidosis WBC/Hb/PLT, 07/23/2024: 3.1/10.4/104/98 PT/INR/PTT, 07/20/2024: 15.1/1.48/ BUNs/CR, 07/20/2024: 78/7.58, 07/22/2024: 19/8.21, 07/23/2024: 64/6.3 Lactic acid, 07/08/2024, 4.3, 3.6 Total bilirubin/AST/ALT/AP, 07/22/2024: 1/73/18/157 TG/HDL/LDL/HDL, 07/20/2024: 232/167/75/27 Vitamin B12, 12/2016:1069, 12/22/16: >2000 Folic acid, 12/2016:10.79 TSH, 12/2016:0.69 EEG, 12/21/16: Normal Carotid Doppler, 07/21/2024: Very limited examination. Unable to evaluate the left carotid system and unable to visualize the right common carotid artery. The degree of carotid stenosis can not be determined on this examination. Findings in the visualized portions of the right carotid system as described above Arterial Doppler, legs, 07/24/2024: 20-49% stenosis of the right common femoral artery based on peak systolic velocity criteria. No hemodynamically significant stenosis based on peak systolic velocity criteria on the left. Bilateral abnormal monophasic arterial waveforms suggest underlying peripheral arterial disea Echocardiogram, 07/22/2024: GLOBAL PERICARDIAL EFFUSION IN RANGE OF 1.0 TO 1.5 CM IN WIDTH NO RV COLLAPSE NO EVIDENCE OF PERICARDIAL TAMPONADE DILATED ALL CARDIAC CHAMBERS AND ARE HYPOKINETIC LV EF IS 30% AND IS MODERATELY REDUCED MODERATELY DILATED RV AND IS HYPOKINETIC NORMAL VALVES Chest, 07/20/2024: Patient has a pericardial effusion which could cause tamponade I recommend cardiac echo. There is a large consolidate involving the right lower lobe and there is pulmonary vascular congestion as well ( Endotracheal tube is below the clavicles just above the aortic arch) Chest x-ray, 07/23/2024: Increasing congestive heart failure. Chest x-ray, 07/28/2024: Moderate interval improvement in patchy bilateral pulmonic middle and lower lung zone airspace disease and bilateral pleural effusions CT head, 07/20/2024: No acute intracranial abnormality vital signs Vital Sign Date Time Temp Pulse Resp B/P (MAP) Pulse Ox O2 Delivery O2 Flow Rate FiO2 07/30/24 08:00 16 91 Mechanical Ventilator+ 30 30 07/30/24 07:45 66 152/57 (88) 07/30/24 04:00 98.1 98.1 Total Intake and Output 07/29/24 07/29/24 07/30/24 15:00 23:00 07:00 Intake Total 61.550 ml 71.550 ml 271.240 ml Output Total 0 ml 0 ml Balance 61.550 ml 71.550 ml 271.240 ml medications Current Medications Medications Dose Ordered Sig/Camacho Route Start Time Stop Time Status Last Admin Dose Admin Pantoprazole Sodium 40 mg DAILY IV 07/21/24 10:00 07/30/24 09:11 40 MG Vancomycin HCl 0 ml @ 0 mls/hr UD IV 07/21/24 02:15 Diagnostic Test (Pha) 1 strip Q6HR 07/21/24 18:00 07/30/24 06:21 1 STRIP Insulin Human Regular Q6HR SC 07/21/24 18:00 07/30/24 00:37 3 UNITS Dextrose 50 ml UD PRN IV 07/21/24 15:00 07/21/24 19:04 50 ML Enteral Nutritional Formula 1,000 ml 30ML/HR GT 07/23/24 16:45 07/27/24 22:12 1,000 ML Ceftriaxone Sodium/Dextrose 50 ml @ 50 mls/hr DAILY IV 07/25/24 10:00 07/30/24 09:11 50 MLS/HR Hydralazine HCl 10 mg Q6HP PRN IV 07/26/24 19:00 07/28/24 17:10 10 MG Lorazepam 0.25 mg Q4HP PRN IV 07/27/24 11:15 07/27/24 12:08 0.25 MG Dexmedetomidine HCl 400 mcg/ Dextrose 100 ml @ 2.31 mls/hr Q24H IV 07/27/24 16:00 07/30/24 06:01 1.155 MLS/HR Carvedilol 3.125 mg Q12HR PO 07/29/24 10:00 07/29/24 10:58 3.125 MG objective The patient is well-nourished and well-developed with no distress. The patient is intubated MENTAL STATUS: Subjective CRANIAL NERVES: Pupils are reactive, left pupil is slightly bigger and is s/p surgery.There is conjugated eye movement. No signs of facial weakness. There are gagging or coughing reflexes during orient. There is no abnormal vascular dilatation, skin secretion in face SENSATION: Okay to light touch and pain stimuli. MOTOR: Normal tone in the upper and lower extremity. Normal muscle bulk. No fasciculations. He moves the arms and legs REFLEXES: Deep tendon reflexes are symmetrical. No pathological reflexes. CEREBELLAR/COORDINATION: Deferred GAIT/STATION: deferred laboratory and microbiology Laboratory Tests 07/30/24 03:35 Test 07/30/24 03:35 Range/Units Serum Glucose 140 H 74-106 mg/dL Problem List Anisocoria with left-sided slightly bigger, uncertain clinical significance Left surgical pupil Altered mental status Hypoxic encephalopathy Metabolic encephalopathy Acute respiratory failure Pneumonia Acidosis, leukocytosis, Sepsis, septic shock ? Diabetic polyneuropathy Rule out other central nervous system pathology Thrombocytopenia, improving She keeps improving Assessment/Plan Monitoring Supportive treatment Follow-up labs ICU care Stabilize vitals/pressor drip Record support/vent management Oxygen IV antibiotics DVT prophylaxis/SCD GI prophylaxis/Protonix 40 mg daily Further address possible diabetic polyneuropathy late CPAP trial More recommendation per clinical course This medical document was created using an electronic medical record system with [employer] system. Although this document has been carefully reviewed, there may still be some phonetic and typographical errors. These areas are purely typographical due to imperfections of the software programs, and do not reflect any compromise in the patient's medical care Prognosis guarded Dietary Evaluation Review Comments: 1.Consider EN regime nepro@20ml/hr to provide 850 Kcal 39g Protein 349ml Free Water to meet nutritional needs 2.Consider PN regime NPO > 5 days Expected Outcomes/Goals: >75% nutritional intake, labs WNL Plan discussed with: Other Critical Care Time(min): 35 FLORENTINO CLARK MD Jul 30, 2024 09:29
[2024-07-30] MEDS: ALBUMIN 25% 100 ML IV ONE (12:06)
[2024-07-30 16:39] LABS: Base Excess 2.6 mmol/L (-2.0-3.0)
[2024-07-30] MEDS ORDERED: EPOETIN ALFA-EPBX 10,000 UNIT/1ML VIAL SC ONE (21:00)
--- NOTE | 2024-07-30 21:44 | DVHPN2 ---
Progress Note - Dictate Date Seen: Jul 30, 2024 Medical Necessity Reason Pt with a Central, PICC or Fol: Yes The following are medically ne: Central Line, Barron Catheter Reason for barron catheter: Strict I&O Subjective Patient was seen and evaluated in follow up in ICU. Chart/events reviewed. Patient remains intubated on mechanical ventilator support. 30% FiO2. Patient is awake, following verbal commands. Able to move arms and legs. Scheduled for dialysis today. vital signs Vital Sign Date Time Temp Pulse Resp B/P (MAP) Pulse Ox O2 Delivery O2 Flow Rate FiO2 07/30/24 21:00 70 15 117/46 (69) 99 07/30/24 20:10 30 07/30/24 20:00 Mechanical Ventilator+ 07/30/24 16:00 98.4 98.4 Total Intake and Output 07/29/24 07/29/24 07/30/24 15:00 23:00 07:00 Intake Total 61.550 ml 71.550 ml 271.240 ml Output Total 0 ml 0 ml Balance 61.550 ml 71.550 ml 271.240 ml medications Current Medications Medications Dose Ordered Sig/Camacho Route Start Time Stop Time Status Last Admin Dose Admin Pantoprazole Sodium 40 mg DAILY IV 07/21/24 10:00 07/30/24 09:11 40 MG Vancomycin HCl 0 ml @ 0 mls/hr UD IV 07/21/24 02:15 Diagnostic Test (Pha) 1 strip Q6HR 07/21/24 18:00 07/30/24 17:58 1 STRIP Insulin Human Regular Q6HR SC 07/21/24 18:00 07/30/24 00:37 3 UNITS Dextrose 50 ml UD PRN IV 07/21/24 15:00 07/21/24 19:04 50 ML Enteral Nutritional Formula 1,000 ml 30ML/HR GT 07/23/24 16:45 07/27/24 22:12 1,000 ML Ceftriaxone Sodium/Dextrose 50 ml @ 50 mls/hr DAILY IV 07/25/24 10:00 07/30/24 09:11 50 MLS/HR Hydralazine HCl 10 mg Q6HP PRN IV 07/26/24 19:00 07/30/24 15:15 10 MG Lorazepam 0.25 mg Q4HP PRN IV 07/27/24 11:15 07/27/24 12:08 0.25 MG Carvedilol 3.125 mg Q12HR PO 07/29/24 10:00 07/30/24 16:08 3.125 MG Dexmedetomidine HCl 400 mcg/ Dextrose 100 ml @ 1.155 mls/ hr Q24H IV 07/30/24 13:45 07/30/24 13:45 1.155 MLS/HR objective Vitals and nursing notes reviewed. General appearance: In no acute distress. HEENT: Normocephalic, atraumatic. Chest: Intubated. Heart: Regular rate; no murmur or gallop Abdomen: Soft, nontender, nondistended Musculoskeletal: No clubbing, no cyanosis, trace lower extremity edema Skin: Warm, moist. Neurological: Awake, following verbal commands. Able to move arms and legs. laboratory and microbiology Laboratory Tests 07/30/24 03:35 Test 07/30/24 03:35 Range/Units Serum Glucose 140 H 74-106 mg/dL Problem List Metabolic encephalopathy secondary to sepsis Acute respiratory failure Cardiorenal syndrome type 3 ESRD on hemodialysis Pericardial effusion Anasarca NSTEMI Transaminitis Normocytic anemia Diabetes - uncontrolled (hemoglobin A1c 7.1%) Hypertension Dyslipidemia Assessment/Plan Agree with current supportive medical care. Cardiology and vent/respiratory care management deferred. Neurology following. HD- 07/30- UF 2.5L as tolerated. Epogen 10,000 u IV x once with dialysis treatment. Albumin and Levo as needed for BP support. Okay to proceed with PICC line placement if needed. Would prefer midline if possible. IV antibiotics as ordered. GI / DVT prophylaxis. Nutritional support. Additional plan as per the hospital course. Dietary Evaluation Review Comments: 1.Consider EN regime nepro@20ml/hr to provide 850 Kcal 39g Protein 349ml Free Water to meet nutritional needs 2.Consider PN regime NPO > 5 days Expected Outcomes/Goals: >75% nutritional intake, labs WNL Plan discussed with: Other (RN) JOSE LUIS SMITH DO Jul 30, 2024 21:44
--- NOTE | 2024-07-30 22:52 | DVHPN2 ---
Progress Note - Dictate Date Seen: Jul 30, 2024 Medical Necessity Reason Pt with a Central, PICC or Fol: Yes The following are medically ne: Central Line, Barron Catheter Reason for barron catheter: Strict I&O Subjective Patient was seen and evaluated in follow up in the ICU. Patient is intubated on ventilator. 30% FiO2. Patient is awake, follow some verbal commands. Host/Hostess Head 3.34. Chest x-ray shows patchy airspace disease of the right lower lobe, likely pneumonia, unchanged. vital signs Vital Sign Date Time Temp Pulse Resp B/P (MAP) Pulse Ox O2 Delivery O2 Flow Rate FiO2 07/30/24 22:12 71 21 121/43 (69) 98 30 07/30/24 22:00 Mechanical Ventilator+ 07/30/24 16:00 98.4 98.4 Total Intake and Output 07/29/24 07/29/24 07/30/24 15:00 23:00 07:00 Intake Total 61.550 ml 71.550 ml 271.240 ml Output Total 0 ml 0 ml Balance 61.550 ml 71.550 ml 271.240 ml medications Current Medications Medications Dose Ordered Sig/Camacho Route Start Time Stop Time Status Last Admin Dose Admin Pantoprazole Sodium 40 mg DAILY IV 07/21/24 10:00 07/30/24 09:11 40 MG Vancomycin HCl 0 ml @ 0 mls/hr UD IV 07/21/24 02:15 Diagnostic Test (Pha) 1 strip Q6HR 07/21/24 18:00 07/30/24 17:58 1 STRIP Insulin Human Regular Q6HR SC 07/21/24 18:00 07/30/24 00:37 3 UNITS Dextrose 50 ml UD PRN IV 07/21/24 15:00 07/21/24 19:04 50 ML Enteral Nutritional Formula 1,000 ml 30ML/HR GT 07/23/24 16:45 07/27/24 22:12 1,000 ML Ceftriaxone Sodium/Dextrose 50 ml @ 50 mls/hr DAILY IV 07/25/24 10:00 07/30/24 09:11 50 MLS/HR Hydralazine HCl 10 mg Q6HP PRN IV 07/26/24 19:00 07/30/24 15:15 10 MG Lorazepam 0.25 mg Q4HP PRN IV 07/27/24 11:15 07/27/24 12:08 0.25 MG Carvedilol 3.125 mg Q12HR PO 07/29/24 10:00 07/30/24 16:08 3.125 MG Dexmedetomidine HCl 400 mcg/ Dextrose 100 ml @ 1.155 mls/ hr Q24H IV 07/30/24 13:45 07/30/24 13:45 1.155 MLS/HR objective GENERAL: Ill appearing, intubated on ventilator. LUNGS: Decreased breath sounds. CARDIOVASCULAR: Heart sounds are good. ABDOMEN: Soft. EXT: BLE edema. laboratory and microbiology Laboratory Tests 07/30/24 03:35 Test 07/30/24 03:35 Range/Units Serum Glucose 140 H 74-106 mg/dL Problem List NSTEMI likely type 2 SC. Acute on chronic HFpEF. Acute hypoxic respiratory failure. Pericardial effusion, recurrent. Sepsis, suspected pneumonia. HTN. HLD. 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 ESRD on HD. HLD. Gram-negative bacteremia. Diabetes mellitus type 2. Assessment/Plan Continued all current supportive medical care. Vasopressors for hemodynamic support. GI prophylactics. IV antibiotics as ordered. Additional plan as per the hospital course. Critical care time of 45 minutes provided to include time spent evaluation of patient at bedside, when appropriate patient/family education for diagnosis, treatment plan, review of pertinent medical information and discussion of care with specialty providers and PCP. Mechanical ventilator parameters, treatment and adjustments have personally been reviewed by me and treatment plan by bale sewer has also been reviewed. Dietary Evaluation Review Comments: 1.Consider EN regime nepro@20ml/hr to provide 850 Kcal 39g Protein 349ml Free Water to meet nutritional needs 2.Consider PN regime NPO > 5 days Expected Outcomes/Goals: >75% nutritional intake, labs WNL Plan discussed with: Other DEWEY SMITH MD Jul 30, 2024 22:52
[2024-07-31] VITALS (105 sets, daily range): BP systolic 118–185; BP diastolic 39–114; PULSE 63–97; RESP 9–27; TEMP 97.7–98.7; O2SAT 95–100
[2024-07-31 03:38] LABS: Basophils # (auto) 0.1 10 ^3/uL (0-0.2); Eosinophils # (auto) 0.1 10 ^3/uL (0-0.8); Eosinophils % (auto) 1.6 % (0.0-7.0); Hematocrit 33.4 % (36.0-46.0); Hemoglobin 11.1 g/dL (12.2-16.2); Lymphocytes # (auto) 0.7 10 ^3/uL (0.4-5.4); Mean Corpuscular Hgb Conc. 33.1 g/dL (32.0-36.0); Mean Corpuscular Volume 99.7 fL (80.0-100.0); Monocytes # (auto) 0.6 10 ^3/uL (0-1.3); Monocytes % (auto) 8.9 % (0.0-12.0); Neutrophils # (auto) 5.2 10 ^3/uL (1.6-8.6); Neutrophils % (auto) 77.5 % (37.0-80.0); Nucleated Red Blood Cells % 0.2 %; Platelet Count (auto) 156 10^3/uL (140-450); Red Blood Cells 3.35 10^6/uL (4.0-5.20); Red Cell Distribution Width 16.3 % (11.8-14.3); White Blood Cell 6.7 10^3/uL (4.4-10.8)
[2024-07-31 04:03] LABS: Alanine Aminotransferase 12 U/L (7-40); Anion Gap 11 (5-15); BUN/Creatinine Ratio 6.8 (10.0-20.0); Blood Urea Nitrogen 17 mg/dL (9-23); Calcium 9.8 mg/dL (8.7-10.4); Carbon Dioxide 28 mmol/L (20-31); Chloride 101 mmol/L (98-107); INR 1.31 (0.9-1.15); Partial Thromboplastin Time 30.8 SEC (24.5-34.5); Potassium 3.6 mmol/L (3.5-5.1); Prothrombin Time 13.5 sec (9.3-11.8); Sodium 140 mmol/L (136-145)
[2024-07-31 04:04] LABS: Magnesium 2.1 mg/dL (1.6-2.6); Total Protein 6.6 g/dL (5.7-8.2)
[2024-07-31 04:05] LABS: Albumin 3.6 g/dL (3.2-4.8); Aspartate Aminotransferase 22 U/L (13-40); Bilirubin, Total 0.9 mg/dL (0.2-1.0)
[2024-07-31 04:06] LABS: Alkaline Phosphatase 197 U/L (46-116); Glucose 165 mg/dL (74-106)
--- NOTE | 2024-07-31 05:00 | DVH ---
CHEST RADIOGRAPH Indication: PNA Technique: Single frontal view of the chest was obtained Comparison: XY CHEST PORTABLE on DOS: 07/30/24 FINDINGS: Lines and Tubes: The endotracheal tube terminates 4.1 cm above the rosanna. Left central venous sara ter terminates in the superior vena cava. The enteric tube courses below the left hemidiaphragm and t he tip extends outside the field of view. Lungs: Patchy right lower lobe airspace disease similar to prior study. Left perihilar opacity. Inter stitial prominence suggesting pulmonary venous congestion. Pleura: Left pleural effusion. No pneumothorax. Cardiomediastinal contours: Unremarkable Bones: No acute osseous abnormality. IMPRESSION: 1. Stable position of the support lines and tubes. 2. Findings which may represent CHF versus pneumonia.
--- NOTE | 2024-07-31 08:17 | DVHPNRES ---
Progress Note Date Seen: Jul 31, 2024 Resident Creating Document: DAGMAR DEL CASTILLO RESIDENT Medical Necessity Reason Pt with a Central, PICC or Fol: Yes The following are medically ne: Central Line, Barron Catheter Reason for barron catheter: Strict I&O Subjective Review of Systems Patient is 69 years old female with past medical history of hypertension, dyslipidemia, diabetes mellitus type 2, COPD on home oxygen [place] O2, ESRD on hemodialysis 3 times per week Tuesday//Tuesday, history of CAD, NE, chronic anemia, history of AV fistula in the left arm, EVAR to thoracic or abdominal aorta(evidence in CT scan) was brought to the hospital due to cough and nausea and vomiting. Patient had productive cough with yellow phlegm, nausea and vomiting and diarrhea and abdominal pain before patient came in. As per brother done patient's alcoholic, drinks alcohol half to 1 L every day for beers every day, drinks Tequila. On arrival patient had altered level of consciousness, became unresponsive, [place] coma score was 3/15, required emergency endotracheal intubation. Patient was previously admitted at [facility] in June 08, 2024, April 22, 2024, March 29 2017, December 19, 2016. Most recent hospitalization was due to malfunction of the AV fistula along with dizziness, at the time patient was on home oxygen 4 liter/minute. On her previous admission Dr. Massey, interventional radiologist attempted to fix non functioning AV fistula 06/11/2024 but patient refused repeatedly and requested to be discharged home. Was also admitted on 22/04/24 due to intractable nausea and vomiting and abdominal pain. Patient was found to have right basilic DVT, possible ischemic colitis likely due to fluid overload.. Echo on 04/26/2024 revealed LVEF 50%, moderate pericardial effusion.Moderate to severely elevated right ventricular systolic pressure at 57 mm of mercury. Moderate mitral valve and tricuspid valve regurgitation. Discharged with a diagnosis of pulmonary edema, suspected cardiogenic shock. Admission initial lab workup revealed leukocytosis with WBC 11.6, increased anion gap 18, elevated creatinine 7.58, BUN 78, Troponin I 170> 146> 141, BNP > 5000 HGB A1c 7.1, lactic acidosis with lactic acid 4.3 elevated serum bilirubin 1.2, elevated AST 59 ALT 20, elevated> alkaline phosphatase 218, triglyceride 232, cholesterol 167, LDL 75, HDL 27. UDS negative. Influenza type a and B, SARS COVID negative. Urinalysis negative for UTI. Initial ABG revealed ABG 7.31, pCO2 43.6, PO2 83.2, bicarbonate 21.8. Initial CT Head scan revealed no acute intracranial abnormality. CXR revealed- Moderate cardiomegaly. Prominent interstitial markings bilaterally. Small bilateral pleural effusions with superimposed infection not excluded no pneumothorax. CT chest, Abdomen and Pelvis revealed-Findings consistent with fluid overload state which include cardiomegaly, pericardial effusion, pleural effusions, ascites, and anasarca. Scattered consolidations throughout the bilateral lungs. Moderate periportal edema which has a broad differential that includes viral hepatitis or acute cholangitis x-ray on 07/20/2024 revealed-Patient has a pericardial effusion which could cause tamponade I recommend cardiac echo. There is a large consolidate involving the right lower lobe and there is pulmonary vascular congestion as well. Carotid Doppler on 07/21/2024 revealed- Very limited examination. Unable to evaluate the left carotid system and unable to visualize the right common carotid artery. The degree of carotid stenosis can not be determined on this examination. Findings in the visualized portions of the right carotid system as described above. Single organ ultrasound on 07/21/2024 revealed-No gallstones or sludge.Nonspecific thickened/ edematous appearance to the gallbladder wall. May be related to 3rd spacing. Echo 2D on 07/22/2024 revealed LVEF 30%, moderately reduced, moderately dilated RV, hypokinetic, global pericardial effusion, in range of 1-1.5 cm. Dilated all cardiac chambers and are hypokinetic. Blood culture on 07/20/2024 revealed E coli. Respiratory culture on 0 07/20/24 also grew E coli. Urine culture no growth. MRSA screening positive. Repeat Blood culture on 07/22/24 shows no growth. Patient was seen today for clinical evaluation. Labs than chart reviewed. Overnight patient's BP ranging from 121-168/59-82 , pulse 70-84, temperature 97.7-98.7 No pressor or sedatives at this moment 07/31/2024- Patient was extubated today at a.m. ABG-pH 7.46, pCO2 38.0, PO2 91.5, bicarbonate 26.4 WBC trending > 11.6> 8.2> 17.6> 13.1> 8.6> 5.5> 5.9> 7.1> 8.1> 8.3> 7.3> 6.7 hemoglobin 12.8> 11.8> 10.4> 10.2> 9.8> 10.2> 10.2>> 10.5 10.6> 11.2> 11.1 Platelet 225> 165> 154> 104> 79> 54> 72> 83> 71> 121> 125 > 156 Sodium 134>> 132> 132> 132> 136> 135> 139> 141> 140> 140 potassium> 4.2> 3.7>> 4.1> 3.6> 3.8> 3.5> 3.7> 3.1> 3.1> 3.3> 4.1 >3.7> 3.6 Anion gap> 18> 17> 16> 13> 16> 15> 11 Serum creatinine 7.58> 7.28> 8.21> 6.30> 6.75> 6.83> 4.99> 5.75> 3.97> 0.44> 2.45> 2.17> 3.34> 2.51 BUN> 78> 74 >90> 64> 69> 44> 29> 12> 8> 21> 17 Ordered for physical therapy, swallow evaluation Provider called and talked to patient's brother Roland [phone], discussed patient's current medical condition, plan of care and answered his questions Objective vital signs Vital Sign Date Time Temp Pulse Resp B/P (MAP) Pulse Ox O2 Delivery O2 Flow Rate FiO2 07/31/24 07:30 85 26 178/82 (114) 98 07/31/24 06:25 30 07/31/24 06:00 Mechanical Ventilator+ 07/31/24 04:00 98.1 98.1 Total Intake and Output 07/30/24 07/30/24 07/31/24 15:00 23:00 07:00 Intake Total 56.930 ml 39.240 ml 253.240 ml Output Total 1500 ml 0 ml Balance 56.930 ml -1460.760 ml 253.240 ml medications Current Medications Medications Dose Ordered Sig/Camacho Route Start Time Stop Time Status Last Admin Dose Admin Pantoprazole Sodium 40 mg DAILY IV 07/21/24 10:00 07/30/24 09:11 40 MG Vancomycin HCl 0 ml @ 0 mls/hr UD IV 07/21/24 02:15 Diagnostic Test (Pha) 1 strip Q6HR 07/21/24 18:00 07/31/24 06:00 1 STRIP Insulin Human Regular Q6HR SC 07/21/24 18:00 07/30/24 23:49 3 UNITS Dextrose 50 ml UD PRN IV 07/21/24 15:00 07/21/24 19:04 50 ML Enteral Nutritional Formula 1,000 ml 30ML/HR GT 07/23/24 16:45 07/27/24 22:12 1,000 ML Ceftriaxone Sodium/Dextrose 50 ml @ 50 mls/hr DAILY IV 07/25/24 10:00 07/30/24 09:11 50 MLS/HR Hydralazine HCl 10 mg Q6HP PRN IV 07/26/24 19:00 07/30/24 15:15 10 MG Lorazepam 0.25 mg Q4HP PRN IV 07/27/24 11:15 07/27/24 12:08 0.25 MG Carvedilol 3.125 mg Q12HR PO 07/29/24 10:00 07/30/24 16:08 3.125 MG Dexmedetomidine HCl 400 mcg/ Dextrose 100 ml @ 1.155 mls/ hr Q24H IV 07/30/24 13:45 07/30/24 13:45 1.155 MLS/HR Examination General examination- awake and alert, HEENT- PEERLA, no acute nasal discharge Cardiovascular- S1-S2 audible, rate and rhythm regular, no murmur Respiratory- CTAB, no wheeze or rhonchi Gastrointestinal-nontender, bowel sound+. Nondistended Musculoskeletal-no acute joint swelling or tenderness or redness Lower extremity- no leg edema Neurological- cranial nerves intact, no acute dysarthria or dysphagia Skin- no acute rash or purpura laboratory and microbiology Laboratory Tests 07/31/24 03:00 Test 07/31/24 03:00 Range/Units Serum Glucose 165 H 74-106 mg/dL Microbiology Date/Time Source Procedure Growth Status 07/22/24 15:49 Blood Blood Culture - Final NO GROWTH AFTER 5 DAYS OF INCUBATION. Complete 07/22/24 01:47 Nose MRSA Screen - Final Complete 07/21/24 12:40 Voided Urine Urine Culture - Final Complete 07/20/24 21:29 Sputum Gram Stain - Final Complete 07/20/24 21:29 Respiratory Culture - Final Escherichia coli Complete Problem List/Assessment/Plan Problem List/Assessment/Plan Assessment and plan Neurology Metabolic encephalopathy/uremic encephalopathy/hypoxic encephalopathy -status post extubation on 07/31/2024 Continue current management - avoid dehydration and nephrotoxic drugs Cardiovascular Septic shock Acute heart failure HFrEF, EF-30%. NSTEMI type 2 demand lead ischemia Acute pulmonary edema likely due to volume overload Pericardial effusion, recurrent -Status post EVAR to thoracic / abdominal aorta Anasarca Suspected cardiac tamponade -H/O HTN, - HLD - Echo 2D on 07/22/2024 revealed LVEF 30%, moderately reduced, moderately dilated RV, hypokinetic, global pericardial effusion, in range of 1-1.5 cm. Dilated all cardiac chambers and are hypokinetic -continue current management Respiratory Acute hypoxic respiratory failure due to acute pulmonary edema/volume overload Bilateral pleural effusion -suspected acute exertional COPD Suspected pneumonia Gram-positive versus Gram-negative B/L Lower lung consolidation Pleural effusion - apneic episode during CPAP trial on 07/27/2024 - Blood culture on 07/20/2024 revealed E coli. Respiratory culture on 07/20/24 also grew E coli. -repeat blood culture on 07/22/2024 preliminary report no growth MRSA screening positive -continue ceftriaxone as prescribed as prescribed -mupirocin as prescribed Gastroenterology -suspected viral hepatitis/cholangitis -ascites -transaminitis -continue pantoprazole 40 mg IV daily Genitourinary/renal -ESRD on HD -fluid overload likely due to ESRD - avoid dehydration and nephrotoxic drugs Hemato oncology --anemia of chronic disease -thrombocytopenia - discontinue heparin due to thrombocytopenia -leukocytosis -monitor CBC Infectious -septic shock -leukocytosis -pneumonia Gram-positive versus Gram-negative - Blood culture on 07/20/2024 revealed E coli. Respiratory culture on 07/20/24 also grew E coli. -blood culture on 0 07/22/24 preliminary reports no growth MRSA screening positive -urine culture negative -continue ceftriaxone 2 g IV daily -mupirocin as prescribed Endocrine/metabolic disorder Metabolic acidosis Lactic acidosis Dilutional hyponatremia Diabetes mellitus type 2 -hyperlipidemia -malnutrition Skin/alimentary Drips - Lines-07/20/24-left internal jugular vein Patient was extubated on 07/31/2024 Goals of care/advance care planning Code status ; discussed >15 minutes PUD prophylaxis: Pantoprazole DVT prophylaxis: Discontinued heparin due to thrombocytopenia Plan discussed with Dr. Galeas, nursing staff, Roland (Brother) Total time spent on patient evaluation, chart review, assessment and plan, total critical time spent including monitoring mechanical ventilation, CPAP trial followed by extubation, excluding procedure 86 minutes: Plan discussed with: Other (RN) My Orders My Orders Orders - DAGMAR DEL CASTILLO Procedure Category Date Status Time Cpap Trial For Am ORDERS 07/30/24 Transmitted 09:03 D5w 5% (Dextrose 5%) PHA 07/30/24 In Process W/Dexmedetomidine 13:45 Cpap Trial For Am ORDERS 07/30/24 Transmitted 16:16 Chest Portable XY 07/31/24 Resulted 04:00 Abg W/ Co-Ox RT 07/31/24 Logged 05:00 Dietary Evaluation Review Comments: 1.Consider EN regime nepro@20ml/hr to provide 850 Kcal 39g Protein 349ml Free Water to meet nutritional needs 2.Consider PN regime NPO > 5 days Expected Outcomes/Goals: >75% nutritional intake, labs WNL Date of Service: Jul 31, 2024 Billing Provider: JOSIANE GALEAS MD Common Visit Codes: 78815-[id number] CARE 30-74 MIN, 22418-DRMPIEEK CARE-EACH +30MIN DAGMAR DEL CASTILLO RESIDENT Jul 31, 2024 08:17 JOSIANE GALEAS MD Aug 01, 2024 15:01
[2024-07-31 09:28] LABS: Base Excess 0.8 mmol/L (-2.0-3.0)
--- NOTE | 2024-07-31 10:57 | DVHPN2 ---
Progress Note - Dictate Date Seen: Jul 31, 2024 Medical Necessity Reason Pt with a Central, PICC or Fol: Yes The following are medically ne: Central Line, Barron Catheter Reason for barron catheter: Strict I&O Subjective Ms. Em is a 69 years old right-handed female with a history of hypertension, diabetes, the patient came to the hospital on 07/20/2024 with a chief come of shortness of breath. At this time, she was intubated sedated, on pressor drip, responds to stroke painful stimuli, history is obtained from chart review I saw on 12/20/2016 for ALOC (UTI, hypotension) She was extubated in the morning on 07/31/2024 I have seen and examined the patient, I have discussed with her nurse, she was extubated, and high volume of oxygen, awake, follows verbal commands, she can move the arms and legs The pupils are unequal, left: Two, right to have not 3 mm, both are reactive UDS, 07/21/2024: Negative Plasma alcohol, 07/20/2024: <3 Urinalysis, 03: WBC: 15, urine leukocyte esterase: Negative Blood culture, 07/20/2024: E coli Respiratory culture, 07/20/2024: E coli ABG, 07/20/2024: Acidosis WBC/Hb/PLT, 07/23/2024: 3.1/10.4/104/98 PT/INR/PTT, 07/20/2024: 15.1/1.48/ BUNs/CR, 07/20/2024: 78/7.58, 07/22/2024: 19/8.21, 07/23/2024: 64/6.3 Lactic acid, 07/08/2024, 4.3, 3.6 Total bilirubin/AST/ALT/AP, 07/22/2024: 1/73/18/157 TG/HDL/LDL/HDL, 07/20/2024: 232/167/75/27 Vitamin B12, 12/2016:1069, 12/22/16: >2000 Folic acid, 12/2016:10.79 TSH, 12/2016:0.69 EEG, 12/21/16: Normal Carotid Doppler, 07/21/2024: Very limited examination. Unable to evaluate the left carotid system and unable to visualize the right common carotid artery. The degree of carotid stenosis can not be determined on this examination. Findings in the visualized portions of the right carotid system as described above Arterial Doppler, legs, 07/24/2024: 20-49% stenosis of the right common femoral artery based on peak systolic velocity criteria. No hemodynamically significant stenosis based on peak systolic velocity criteria on the left. Bilateral abnormal monophasic arterial waveforms suggest underlying peripheral arterial disea Echocardiogram, 07/22/2024: GLOBAL PERICARDIAL EFFUSION IN RANGE OF 1.0 TO 1.5 CM IN WIDTH NO RV COLLAPSE NO EVIDENCE OF PERICARDIAL TAMPONADE DILATED ALL CARDIAC CHAMBERS AND ARE HYPOKINETIC LV EF IS 30% AND IS MODERATELY REDUCED MODERATELY DILATED RV AND IS HYPOKINETIC NORMAL VALVES Chest, 07/20/2024: Patient has a pericardial effusion which could cause tamponade I recommend cardiac echo. There is a large consolidate involving the right lower lobe and there is pulmonary vascular congestion as well ( Endotracheal tube is below the clavicles just above the aortic arch) Chest x-ray, 07/23/2024: Increasing congestive heart failure. Chest x-ray, 07/28/2024: Moderate interval improvement in patchy bilateral pulmonic middle and lower lung zone airspace disease and bilateral pleural effusions CT head, 07/20/2024: No acute intracranial abnormality vital signs Vital Sign Date Time Temp Pulse Resp B/P (MAP) Pulse Ox O2 Delivery O2 Flow Rate FiO2 07/31/24 09:30 83 21 153/54 (87) 100 07/31/24 08:30 98.3 98.3 07/31/24 08:00 Mechanical Ventilator+ 30 30 Total Intake and Output 07/30/24 07/30/24 07/31/24 14:59 22:59 06:59 Intake Total 58.085 ml 38.085 ml 253.240 ml Output Total 1500 ml 0 ml Balance 58.085 ml -1461.915 ml 253.240 ml medications Current Medications Medications Dose Ordered Sig/Camacho Route Start Time Stop Time Status Last Admin Dose Admin Pantoprazole Sodium 40 mg DAILY IV 07/21/24 10:00 07/31/24 09:19 40 MG Vancomycin HCl 0 ml @ 0 mls/hr UD IV 07/21/24 02:15 Diagnostic Test (Pha) 1 strip Q6HR 07/21/24 18:00 07/31/24 06:00 1 STRIP Insulin Human Regular Q6HR SC 07/21/24 18:00 07/30/24 23:49 3 UNITS Dextrose 50 ml UD PRN IV 07/21/24 15:00 07/21/24 19:04 50 ML Enteral Nutritional Formula 1,000 ml 30ML/HR GT 07/23/24 16:45 07/27/24 22:12 1,000 ML Ceftriaxone Sodium/Dextrose 50 ml @ 50 mls/hr DAILY IV 07/25/24 10:00 07/31/24 09:19 50 MLS/HR Hydralazine HCl 10 mg Q6HP PRN IV 07/26/24 19:00 07/31/24 09:04 10 MG Lorazepam 0.25 mg Q4HP PRN IV 07/27/24 11:15 07/27/24 12:08 0.25 MG Carvedilol 3.125 mg Q12HR PO 07/29/24 10:00 07/30/24 16:08 3.125 MG Dexmedetomidine HCl 400 mcg/ Dextrose 100 ml @ 1.155 mls/ hr Q24H IV 07/30/24 13:45 07/30/24 13:45 1.155 MLS/HR objective The patient is well-nourished and well-developed with no distress. MENTAL STATUS: Subjective CRANIAL NERVES: Pupils are reactive, left pupil is slightly bigger and is s/p surgery.There is conjugated eye movement. No signs of facial weakness. There is no abnormal vascular dilatation, skin secretion in face SENSATION: Okay to light touch and pain stimuli. MOTOR: Normal tone in the upper and lower extremity. Normal muscle bulk. No fasciculations. She moves the arms and legs REFLEXES: Deep tendon reflexes are symmetrical. No pathological reflexes. CEREBELLAR/COORDINATION: Deferred GAIT/STATION: deferred inprick and light touch Reflexes: Symmetric and without pathologic reflexes laboratory and microbiology Laboratory Tests 07/31/24 03:00 Test 07/31/24 03:00 Range/Units Serum Glucose 165 H 74-106 mg/dL Problem List Anisocoria with left-sided slightly bigger, uncertain clinical significance Left surgical pupil Altered mental status Hypoxic encephalopathy Metabolic encephalopathy Acute respiratory failure Pneumonia Acidosis, leukocytosis, Sepsis, septic shock ? Diabetic polyneuropathy Rule out other central nervous system pathology Thrombocytopenia, improving She keeps improving Assessment/Plan Monitoring Supportive treatment Follow-up labs ICU care Stabilize vitals Record support Oxygen IV antibiotics DVT prophylaxis/SCD GI prophylaxis/Protonix 40 mg daily Further address possible diabetic polyneuropathy late CPAP trial More recommendation per clinical course This medical document was created using an electronic medical record system with [employer] system. Although this document has been carefully reviewed, there may still be some phonetic and typographical errors. These areas are purely typographical due to imperfections of the software programs, and do not reflect any compromise in the patient's medical care Prognosis poor Dietary Evaluation Review Comments: 1.Consider EN regime nepro@20ml/hr to provide 850 Kcal 39g Protein 349ml Free Water to meet nutritional needs 2.Consider PN regime NPO > 5 days Expected Outcomes/Goals: >75% nutritional intake, labs WNL Plan discussed with: Other FLORENTINO CLARK MD Jul 31, 2024 10:57
[2024-07-31] MEDS: VANCOMYCIN 500mg/100mL 100 ML IV ONE (11:54)
[2024-07-31] MEDS: IPRATROPIUM BROM 0.5 MG/2.5ML INH SOL NEB SCH (12:53)
[2024-07-31] MEDS: ALBUTEROL SULF 2.5 MG/0.5ML(0.5%) NEB SOLN NEB SCH (12:53)
[2024-07-31] MEDS: hydrALAZINE HCL 20 MG/ML VL IV PRN (15:43)
--- NOTE | 2024-07-31 20:26 | DVHPN2 ---
Progress Note - Dictate Date Seen: Jul 31, 2024 Medical Necessity Reason Pt with a Central, PICC or Fol: Yes The following are medically ne: Central Line, Barron Catheter Reason for barron catheter: Strict I&O Subjective Patient was seen and evaluated in follow up in ICU. Chart/events reviewed. Patient was extubated this morning, stable on 3L NC. Patient is awake and follows verbal commands. Able to move extremities. Last dialyzed yesterday. vital signs Vital Sign Date Time Temp Pulse Resp B/P (MAP) Pulse Ox O2 Delivery O2 Flow Rate FiO2 07/31/24 19:00 74 17 126/45 (72) 97 07/31/24 18:47 Nasal Cannula 3.0 07/31/24 18:47 32 07/31/24 12:00 98.7 98.7 Total Intake and Output 07/30/24 07/30/24 07/31/24 15:00 23:00 07:00 Intake Total 56.930 ml 39.240 ml 253.240 ml Output Total 1500 ml 0 ml Balance 56.930 ml -1460.760 ml 253.240 ml medications Current Medications Medications Dose Ordered Sig/Camacho Route Start Time Stop Time Status Last Admin Dose Admin Pantoprazole Sodium 40 mg DAILY IV 07/21/24 10:00 07/31/24 09:19 40 MG Vancomycin HCl 0 ml @ 0 mls/hr UD IV 07/21/24 02:15 Diagnostic Test (Pha) 1 strip Q6HR 07/21/24 18:00 07/31/24 17:46 1 STRIP Insulin Human Regular Q6HR SC 07/21/24 18:00 07/31/24 17:49 2 UNITS Dextrose 50 ml UD PRN IV 07/21/24 15:00 07/21/24 19:04 50 ML Ceftriaxone Sodium/Dextrose 50 ml @ 50 mls/hr DAILY IV 07/25/24 10:00 07/31/24 09:19 50 MLS/HR Lorazepam 0.25 mg Q4HP PRN IV 07/27/24 11:15 07/27/24 12:08 0.25 MG Carvedilol 3.125 mg Q12HR PO 07/29/24 10:00 07/31/24 10:00 3.125 MG Albuterol 2.5 mg Q6HR NEB 07/31/24 12:00 07/31/24 18:47 2.5 MG Ipratropium Campbell 0.5 mg Q6HR NEB 07/31/24 12:00 07/31/24 18:47 0.5 MG Hydralazine HCl 10 mg Q6HP PRN IV 07/31/24 13:30 07/31/24 15:43 10 MG objective Vitals and nursing notes reviewed. General appearance: In no acute distress. HEENT: Normocephalic, atraumatic. Chest: S/p extubation. On 3L NC. No wheezes or rales. Heart: Regular rate; no murmur or gallop Abdomen: Soft, nontender, nondistended Musculoskeletal: No clubbing, no cyanosis, trace lower extremity edema Skin: Warm, moist. Neurological: Awake, following verbal commands. Able to move arms and legs. laboratory and microbiology Laboratory Tests 07/31/24 03:00 Test 07/31/24 03:00 Range/Units Serum Glucose 165 H 74-106 mg/dL Problem List Metabolic encephalopathy secondary to sepsis Acute respiratory failure Cardiorenal syndrome type 3 ESRD on hemodialysis Pericardial effusion Anasarca NSTEMI Transaminitis Normocytic anemia Diabetes - uncontrolled (hemoglobin A1c 7.1%) Hypertension Dyslipidemia Assessment/Plan Agree with current supportive medical care. Neurology following. Cardiology and Pulmonary care management deferred. S/p extubation this morning. Pending PT/SWEDGER evals. Next dialysis 08/01. IV antibiotics as ordered. GI / DVT prophylaxis. Additional plan as per the hospital course. Dietary Evaluation Review Comments: 1.Consider EN regime nepro@20ml/hr to provide 850 Kcal 39g Protein 349ml Free Water to meet nutritional needs 2.Consider PN regime NPO > 5 days Expected Outcomes/Goals: >75% nutritional intake, labs WNL Plan discussed with: Other (RN) JOSE LUIS SMITH DO Jul 31, 2024 20:26
--- NOTE | 2024-07-31 22:46 | DVHPN2 ---
Progress Note - Dictate Date Seen: Jul 31, 2024 Medical Necessity Reason Pt with a Central, PICC or Fol: Yes The following are medically ne: Central Line, Barron Catheter Reason for barron catheter: Strict I&O Subjective Patient was seen and evaluated in follow up in the ICU. Patient was successfully extubated to high flow oxygen this afternoon. Patient is now on 3 LPM NC. Patient is awake and follows commands. Complaint Coordinator 2.51. vital signs Vital Sign Date Time Temp Pulse Resp B/P (MAP) Pulse Ox O2 Delivery O2 Flow Rate FiO2 07/31/24 19:00 74 17 126/45 (72) 97 07/31/24 18:47 Nasal Cannula 3.0 07/31/24 18:47 32 07/31/24 12:00 98.7 98.7 Total Intake and Output 07/30/24 07/30/24 07/31/24 15:00 23:00 07:00 Intake Total 56.930 ml 39.240 ml 253.240 ml Output Total 1500 ml 0 ml Balance 56.930 ml -1460.760 ml 253.240 ml medications Current Medications Medications Dose Ordered Sig/Camacho Route Start Time Stop Time Status Last Admin Dose Admin Pantoprazole Sodium 40 mg DAILY IV 07/21/24 10:00 07/31/24 09:19 40 MG Vancomycin HCl 0 ml @ 0 mls/hr UD IV 07/21/24 02:15 Diagnostic Test (Pha) 1 strip Q6HR 07/21/24 18:00 07/31/24 17:46 1 STRIP Insulin Human Regular Q6HR SC 07/21/24 18:00 07/31/24 17:49 2 UNITS Dextrose 50 ml UD PRN IV 07/21/24 15:00 07/21/24 19:04 50 ML Ceftriaxone Sodium/Dextrose 50 ml @ 50 mls/hr DAILY IV 07/25/24 10:00 07/31/24 09:19 50 MLS/HR Lorazepam 0.25 mg Q4HP PRN IV 07/27/24 11:15 07/27/24 12:08 0.25 MG Carvedilol 3.125 mg Q12HR PO 07/29/24 10:00 07/31/24 10:00 3.125 MG Albuterol 2.5 mg Q6HR NEB 07/31/24 12:00 07/31/24 18:47 2.5 MG Ipratropium [place] 0.5 mg Q6HR NEB 07/31/24 12:00 07/31/24 18:47 0.5 MG Hydralazine HCl 10 mg Q6HP PRN IV 07/31/24 13:30 07/31/24 15:43 10 MG objective GENERAL: Ill appearing, intubated on ventilator. LUNGS: Decreased breath sounds. CARDIOVASCULAR: Heart sounds are good. ABDOMEN: Soft. EXT: BLE edema. laboratory and microbiology Laboratory Tests 07/31/24 03:00 Test 07/31/24 03:00 Range/Units Serum Glucose 165 H 74-106 mg/dL Problem List NSTEMI likely type 2 CA. Acute on chronic HFpEF. Acute hypoxic respiratory failure. Pericardial effusion, recurrent. Sepsis, suspected pneumonia. HTN. HLD. 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 ESRD on HD. HLD. Gram-negative bacteremia. Diabetes mellitus type 2. Assessment/Plan Continued all current supportive medical care. Coreg. IV antibiotics as ordered. IV Hydralazine for SBP >160. GI prophylactics. Additional plan as per the hospital course. Critical care time of 45 minutes provided to include time spent evaluation of patient at bedside, when appropriate patient/family education for diagnosis, treatment plan, review of pertinent medical information and discussion of care with specialty providers and PCP. Dietary Evaluation Review Comments: 1.Consider EN regime nepro@20ml/hr to provide 850 Kcal 39g Protein 349ml Free Water to meet nutritional needs 2.Consider PN regime NPO > 5 days Expected Outcomes/Goals: >75% nutritional intake, labs WNL Plan discussed with: Patient DEWEY SMITH MD Jul 31, 2024 19:59
[2024-08-01] VITALS (57 sets, daily range): BP systolic 95–179; BP diastolic 36–68; PULSE 64–91; RESP 13–27; TEMP 97.8–98.1; O2SAT 92–100
[2024-08-01 03:49] LABS: Basophils # (auto) 0.1 10 ^3/uL (0-0.2); Basophils % (auto) 2.6 % (0.0-2.0); Eosinophils # (auto) 0.1 10 ^3/uL (0-0.8); Eosinophils % (auto) 2.6 % (0.0-7.0); Hematocrit 32.7 % (36.0-46.0); Hemoglobin 10.9 g/dL (12.2-16.2); Lymphocytes # (auto) 0.7 10 ^3/uL (0.4-5.4); Lymphocytes % (auto) 14.8 % (10.0-50.0); Mean Corpuscular Hemoglobin 33.3 pg (28.0-32.0); Mean Corpuscular Hgb Conc. 33.2 g/dL (32.0-36.0); Mean Corpuscular Volume 100.5 fL (80.0-100.0); Monocytes # (auto) 0.4 10 ^3/uL (0-1.3); Monocytes % (auto) 10.1 % (0.0-12.0); Neutrophils # (auto) 3.1 10 ^3/uL (1.6-8.6); Neutrophils % (auto) 69.9 % (37.0-80.0); Nucleated Red Blood Cells % 0.2 %; Platelet Count (auto) 169 10^3/uL (140-450); Red Blood Cells 3.26 10^6/uL (4.0-5.20); Red Cell Distribution Width 16.3 % (11.8-14.3); White Blood Cell 4.4 10^3/uL (4.4-10.8)
[2024-08-01 04:00] LABS: Alanine Aminotransferase 10 U/L (7-40); Anion Gap 11 (5-15); BUN/Creatinine Ratio 6.7 (10.0-20.0); Calcium 9.3 mg/dL (8.7-10.4); Carbon Dioxide 29 mmol/L (20-31); Chloride 102 mmol/L (98-107); Glucose 94 mg/dL (74-106); Magnesium 2.3 mg/dL (1.6-2.6); Potassium 3.7 mmol/L (3.5-5.1); Sodium 142 mmol/L (136-145); Total Protein 6.3 g/dL (5.7-8.2)
[2024-08-01 04:01] LABS: Albumin 3.2 g/dL (3.2-4.8); Alkaline Phosphatase 174 U/L (46-116); Aspartate Aminotransferase 15 U/L (13-40); Bilirubin, Total 0.7 mg/dL (0.2-1.0); Blood Urea Nitrogen 25 mg/dL (9-23)
[2024-08-01] MEDS ORDERED: LORazepam 2MG/ML-1ML VIAL IV ONE (04:10)
--- NOTE | 2024-08-01 04:29 | DVH ---
CHEST RADIOGRAPH Indication: PNA Technique: Single frontal view of the chest was obtained Comparison: XY CHEST PORTABLE on DOS: 07/31/24 FINDINGS: Lines and Tubes: The endotracheal tube and enteric tube have been removed. Left central venous sara ter terminates in the superior vena cava. Aortic stent noted. Lungs: Similar bilateral airspace disease. Interstitial prominence. Pleura: No effusion. No pneumothorax. Cardiomediastinal contours: Unremarkable Bones: No acute osseous abnormality. IMPRESSION: 1. Removal of the endotracheal and enteric tube. 2. No significant interval change in appearance of the lungs.
--- NOTE | 2024-08-01 08:34 | DVHPNRES ---
Progress Note Date Seen: Aug 01, 2024 Resident Creating Document: DAGMAR DEL CASTILLO RESIDENT Medical Necessity Reason Pt with a Central, PICC or Fol: Yes The following are medically ne: Central Line, Barron Catheter Reason for barron catheter: Strict I&O Subjective Review of Systems Patient is 69 years old female with past medical history of hypertension, dyslipidemia, diabetes mellitus type 2, COPD on home oxygen [place] O2, ESRD on hemodialysis 3 times per week Tuesday//Tuesday, history of CAD, [place], chronic anemia, history of AV fistula in the left arm, EVAR to thoracic or abdominal aorta(evidence in CT scan) was brought to the hospital due to cough and nausea and vomiting. Patient had productive cough with yellow phlegm, nausea and vomiting and diarrhea and abdominal pain before patient came in. As per brother done patient's alcoholic, drinks alcohol half to 1 L every day for beers every day, drinks Tequila. On arrival patient had altered level of consciousness, became unresponsive, Austin coma score was 3/15, required emergency endotracheal intubation. Patient was previously admitted at [facility] in June 08, 2024, April 22, 2024, March 29 2017, December 19, 2016. Most recent hospitalization was due to malfunction of the AV fistula along with dizziness, at the time patient was on home oxygen 4 liter/minute. On her previous admission Dr. Massey, interventional radiologist attempted to fix non functioning AV fistula 06/11/2024 but patient refused repeatedly and requested to be discharged home. Was also admitted on 22/04/24 due to intractable nausea and vomiting and abdominal pain. Patient was found to have right basilic DVT, possible ischemic colitis likely due to fluid overload.. Echo on 04/26/2024 revealed LVEF 50%, moderate pericardial effusion.Moderate to severely elevated right ventricular systolic pressure at 57 mm of mercury. Moderate mitral valve and tricuspid valve regurgitation. Discharged with a diagnosis of pulmonary edema, suspected cardiogenic shock. Admission initial lab workup revealed leukocytosis with WBC 11.6, increased anion gap 18, elevated creatinine 7.58, BUN 78, Troponin I 170> 146> 141, BNP > 5000 HGB A1c 7.1, lactic acidosis with lactic acid 4.3 elevated serum bilirubin 1.2, elevated AST 59 ALT 20, elevated> alkaline phosphatase 218, triglyceride 232, cholesterol 167, LDL 75, HDL 27. UDS negative. Influenza type a and B, SARS COVID negative. Urinalysis negative for UTI. Initial ABG revealed ABG 7.31, pCO2 43.6, PO2 83.2, bicarbonate 21.8. Initial CT Head scan revealed no acute intracranial abnormality. CXR revealed- Moderate cardiomegaly. Prominent interstitial markings bilaterally. Small bilateral pleural effusions with superimposed infection not excluded no pneumothorax. CT chest, Abdomen and Pelvis revealed-Findings consistent with fluid overload state which include cardiomegaly, pericardial effusion, pleural effusions, ascites, and anasarca. Scattered consolidations throughout the bilateral lungs. Moderate periportal edema which has a broad differential that includes viral hepatitis or acute cholangitis x-ray on 07/20/2024 revealed-Patient has a pericardial effusion which could cause tamponade I recommend cardiac echo. There is a large consolidate involving the right lower lobe and there is pulmonary vascular congestion as well. Carotid Doppler on 07/21/2024 revealed- Very limited examination. Unable to evaluate the left carotid system and unable to visualize the right common carotid artery. The degree of carotid stenosis can not be determined on this examination. Findings in the visualized portions of the right carotid system as described above. Single organ ultrasound on 07/21/2024 revealed-No gallstones or sludge.Nonspecific thickened/ edematous appearance to the gallbladder wall. May be related to 3rd spacing. Echo 2D on 07/22/2024 revealed LVEF 30%, moderately reduced, moderately dilated RV, hypokinetic, global pericardial effusion, in range of 1-1.5 cm. Dilated all cardiac chambers and are hypokinetic. Blood culture on 07/20/2024 revealed E coli. Respiratory culture on 0 07/20/24 also grew E coli. Urine culture no growth. MRSA screening positive. Repeat Blood culture on 07/22/24 shows no growth. Patient was seen today for clinical evaluation. Labs than chart reviewed. Overnight patient's BP ranging from 100-168/-36 67, pulse 64-76, 97.7-98.7 07/31/2024- Patient was extubated Discontinued ceftriaxone, ordered levofloxacin 250 mg p.o. daily Patient was transferred to telemetry Patient on [place] O2 2 liter/minute WBC trending > 11.6> 8.2> 17.6> 13.1> 8.6> 5.5> 5.9> 7.1> 8.1> 8.3> 7.3> 6.7> 4.4 hemoglobin 12.8> 11.8> 10.4> 10.2> 9.8> 10.2> 10.2>> 10.5 10.6> 11.2> 11.1> 10.9 Platelet 225> 165> 154> 104> 79> 54> 72> 83> 71> 121> 125 > 156> 169 Sodium 134>> 132> 132> 132> 136> 135> 139> 141> 140> 140> 142 potassium> 4.2> 3.7>> 4.1> 3.6> 3.8> 3.5> 3.7> 3.1> 3.1> 3.3> 4.1 >3.7> 3.6> 3.7 Anion gap> 18> 17> 16> 13> 16> 15> 11 Serum creatinine 7.58> 7.28> 8.21> 6.30> 6.75> 6.83> 4.99> 5.75> 3.97> 0.44> 2.45> 2.17> 3.34> 2.51> 3.73 BUN> 78> 74 >90> 64> 69> 44> 29> 12> 8> 21> 17> 25 Provider called and talked to patient's brother Roland [phone], discussed patient's current medical condition, plan of care and answered his questions Objective vital signs Vital Sign Date Time Temp Pulse Resp B/P (MAP) Pulse Ox O2 Delivery O2 Flow Rate FiO2 08/01/24 07:18 76 16 100 08/01/24 07:12 Nasal Cannula* 3 32 08/01/24 06:45 168/62 (97) 08/01/24 04:00 97.8 97.8 Total Intake and Output 07/31/24 07/31/24 08/01/24 15:00 23:00 07:00 Intake Total 0 ml 15 ml 90 ml Balance 0 ml 15 ml 90 ml medications Current Medications Medications Dose Ordered Sig/Camacho Route Start Time Stop Time Status Last Admin Dose Admin Pantoprazole Sodium 40 mg DAILY IV 07/21/24 10:00 07/31/24 09:19 40 MG Diagnostic Test (Pha) 1 strip Q6HR 07/21/24 18:00 08/01/24 05:44 1 STRIP Insulin Human Regular Q6HR SC 07/21/24 18:00 07/31/24 17:49 2 UNITS Dextrose 50 ml UD PRN IV 07/21/24 15:00 07/21/24 19:04 50 ML Ceftriaxone Sodium/Dextrose 50 ml @ 50 mls/hr DAILY IV 07/25/24 10:00 07/31/24 09:19 50 MLS/HR Lorazepam 0.25 mg Q4HP PRN IV 07/27/24 11:15 07/27/24 12:08 0.25 MG Carvedilol 3.125 mg Q12HR PO 07/29/24 10:00 07/31/24 21:18 3.125 MG Albuterol 2.5 mg Q6HR NEB 07/31/24 12:00 08/01/24 07:12 2.5 MG Ipratropium [place] 0.5 mg Q6HR NEB 07/31/24 12:00 08/01/24 07:12 0.5 MG Hydralazine HCl 10 mg Q6HP PRN IV 07/31/24 13:30 07/31/24 15:43 10 MG Examination General examination- awake and alert, HEENT- PEERLA, no acute nasal discharge Cardiovascular- S1-S2 audible, rate and rhythm regular, no murmur Respiratory- CTAB, no wheeze or rhonchi Gastrointestinal-nontender, bowel sound+. Nondistended Musculoskeletal-no acute joint swelling or tenderness or redness Lower extremity- no leg edema Neurological- cranial nerves intact, no acute dysarthria or dysphagia Skin- no acute rash or purpura laboratory and microbiology Laboratory Tests 08/01/24 03:00 Test 08/01/24 03:00 Range/Units Serum Glucose 94 74-106 mg/dL Microbiology Date/Time Source Procedure Growth Status 07/22/24 15:49 Blood Blood Culture - Final NO GROWTH AFTER 5 DAYS OF INCUBATION. Complete 07/22/24 01:47 Nose MRSA Screen - Final Complete 07/21/24 12:40 Voided Urine Urine Culture - Final Complete 07/20/24 21:29 Sputum Gram Stain - Final Complete 07/20/24 21:29 Respiratory Culture - Final Escherichia coli Complete Problem List/Assessment/Plan Problem List/Assessment/Plan Assessment and plan Neurology Metabolic encephalopathy/uremic encephalopathy/hypoxic encephalopathy -status post extubation on 07/31/2024 Continue current management - avoid dehydration and nephrotoxic drugs Cardiovascular Septic shock Acute heart failure HFrEF, EF-30%. NSTEMI type 2 demand lead ischemia Acute pulmonary edema likely due to volume overload Pericardial effusion, recurrent -Status post EVAR to thoracic / abdominal aorta Anasarca Suspected cardiac tamponade -H/O HTN, - HLD - Echo 2D on 07/22/2024 revealed LVEF 30%, moderately reduced, moderately dilated RV, hypokinetic, global pericardial effusion, in range of 1-1.5 cm. Dilated all cardiac chambers and are hypokinetic -continue current management Respiratory Acute hypoxic respiratory failure due to acute pulmonary edema/volume overload Bilateral pleural effusion -suspected acute exertional COPD Suspected pneumonia Gram-positive versus Gram-negative B/L Lower lung consolidation Pleural effusion - apneic episode during CPAP trial on 07/27/2024 - Blood culture on 07/20/2024 revealed E coli. Respiratory culture on 07/20/24 also grew E coli. -repeat blood culture on 07/22/2024 preliminary report no growth MRSA screening positive -continue ceftriaxone as prescribed as prescribed -mupirocin as prescribed Gastroenterology -suspected viral hepatitis/cholangitis -ascites -transaminitis -continue pantoprazole 40 mg IV daily Genitourinary/renal -ESRD on HD -fluid overload likely due to ESRD - avoid dehydration and nephrotoxic drugs Hemato oncology --anemia of chronic disease -thrombocytopenia - discontinue heparin due to thrombocytopenia -leukocytosis -monitor CBC Infectious -septic shock -leukocytosis -pneumonia Gram-positive versus Gram-negative - Blood culture on 07/20/2024 revealed E coli. Respiratory culture on 07/20/24 also grew E coli. -blood culture on 0 07/22/24 preliminary reports no growth MRSA screening positive -urine culture negative -continue levofloxacin 250 mg p.o. daily -mupirocin as prescribed Endocrine/metabolic disorder Metabolic acidosis Lactic acidosis Dilutional hyponatremia Diabetes mellitus type 2 -hyperlipidemia -malnutrition Skin/alimentary Patient was extubated on 07/31/2024 Goals of care/advance care planning Code status ; discussed >18 minutes PUD prophylaxis: Pantoprazole DVT prophylaxis: Discontinued heparin due to thrombocytopenia Plan discussed with Dr. Galeas, nursing staff, Roland (Brother) Total time spent on patient evaluation, chart review, assessment and plan, total time spent >45 minutes Plan discussed with: Other (rn, brother ) My Orders My Orders Orders - DAGMAR DEL CASTILLO Procedure Category Date Status Time * Swallow Request ST 07/31/24 Transmitted 11:44 Pt Request For Service PT 07/31/24 Logged 11:44 Albuterol Medneb PHA 07/31/24 In Process (Ventolin Medneb) 12:00 Ipratropium Medneb PHA 07/31/24 In Process (Atrovent Medneb) 12:00 Chest Portable XY 08/01/24 Resulted 04:00 Abg W/ Co-Ox RT 08/01/24 Logged 05:00 Pureed DIET 07/31/24 Transmitted Dinner Dietary Evaluation Review Comments: 1.Consider EN regime nepro@20ml/hr to provide 850 Kcal 39g Protein 349ml Free Water to meet nutritional needs 2.Consider PN regime NPO > 5 days Expected Outcomes/Goals: >75% nutritional intake, labs WNL Date of Service: Aug 01, 2024 Billing Provider: JOSIANE GALEAS MD Common Visit Codes: 01428-[id number] INP/OBS CARE(HIGH) Secondary Visit Codes: 17711-[id number] CARE PLAN 30 MINUTES DAGMAR DEL CASTILLO Aug 01, 2024 08:34 JOSIANE GALEAS MD Aug 02, 2024 13:10
--- NOTE | 2024-08-01 10:04 | DVHPN2 ---
Progress Note - Dictate Date Seen: Aug 01, 2024 Medical Necessity Reason Pt with a Central, PICC or Fol: Yes The following are medically ne: Central Line, Barron Catheter Reason for barron catheter: Strict I&O Subjective Ms. Em is a 69 years old right-handed female with a history of hypertension, diabetes, the patient came to the hospital on 07/20/2024 with a chief come of shortness of breath. At this time, she was intubated sedated, on pressor drip, responds to stroke painful stimuli, history is obtained from chart review I saw on 12/20/2016 for ALOC (UTI, hypotension) She was extubated in the morning on 07/31/2024 I have seen and examined the patient, I have discussed with her nurse, she keeps improving, she was more energized, she follows if she understands, she can move the arms and legs Pupils remained on equal Otherwise no change on physical examination UDS, 07/21/2024: Negative Plasma alcohol, 07/20/2024: <3 Urinalysis, 03: WBC: 15, urine leukocyte esterase: Negative Blood culture, 07/20/2024: E coli Respiratory culture, 07/20/2024: E coli ABG, 07/20/2024: Acidosis WBC/Hb/PLT, 07/23/2024: 3.1/10.4/104/98 PT/INR/PTT, 07/20/2024: 15.1/1.48/ BUNs/CR, 07/20/2024: 78/7.58, 07/22/2024: 19/8.21, 07/23/2024: 64/6.3 Lactic acid, 07/08/2024, 4.3, 3.6 Total bilirubin/AST/ALT/AP, 07/22/2024: 1/73/18/157 TG/HDL/LDL/HDL, 07/20/2024: 232/167/75/27 Vitamin B12, 12/2016:1069, 12/22/16: >2000 Folic acid, 12/2016:10.79 TSH, 12/2016:0.69 EEG, 12/21/16: Normal Carotid Doppler, 07/21/2024: Very limited examination. Unable to evaluate the left carotid system and unable to visualize the right common carotid artery. The degree of carotid stenosis can not be determined on this examination. Findings in the visualized portions of the right carotid system as described above Arterial Doppler, legs, 07/24/2024: 20-49% stenosis of the right common femoral artery based on peak systolic velocity criteria. No hemodynamically significant stenosis based on peak systolic velocity criteria on the left. Bilateral abnormal monophasic arterial waveforms suggest underlying peripheral arterial disea Echocardiogram, 07/22/2024: GLOBAL PERICARDIAL EFFUSION IN RANGE OF 1.0 TO 1.5 CM IN WIDTH NO RV COLLAPSE NO EVIDENCE OF PERICARDIAL TAMPONADE DILATED ALL CARDIAC CHAMBERS AND ARE HYPOKINETIC LV EF IS 30% AND IS MODERATELY REDUCED MODERATELY DILATED RV AND IS HYPOKINETIC NORMAL VALVES Chest, 07/20/2024: Patient has a pericardial effusion which could cause tamponade I recommend cardiac echo. There is a large consolidate involving the right lower lobe and there is pulmonary vascular congestion as well ( Endotracheal tube is below the clavicles just above the aortic arch) Chest x-ray, 07/23/2024: Increasing congestive heart failure. Chest x-ray, 07/28/2024: Moderate interval improvement in patchy bilateral pulmonic middle and lower lung zone airspace disease and bilateral pleural effusions CT head, 07/20/2024: No acute intracranial abnormality vital signs Vital Sign Date Time Temp Pulse Resp B/P (MAP) Pulse Ox O2 Delivery O2 Flow Rate FiO2 08/01/24 08:00 79 20 94 Nasal Cannula* 3 32 08/01/24 06:45 168/62 (97) 08/01/24 04:00 97.8 97.8 Total Intake and Output 07/31/24 07/31/24 08/01/24 15:00 23:00 07:00 Intake Total 0 ml 15 ml 90 ml Balance 0 ml 15 ml 90 ml medications Current Medications Medications Dose Ordered Sig/Camacho Route Start Time Stop Time Status Last Admin Dose Admin Pantoprazole Sodium 40 mg DAILY IV 07/21/24 10:00 07/31/24 09:19 40 MG Diagnostic Test (Pha) 1 strip Q6HR 07/21/24 18:00 08/01/24 05:44 1 STRIP Insulin Human Regular Q6HR SC 07/21/24 18:00 07/31/24 17:49 2 UNITS Dextrose 50 ml UD PRN IV 07/21/24 15:00 07/21/24 19:04 50 ML Ceftriaxone Sodium/Dextrose 50 ml @ 50 mls/hr DAILY IV 07/25/24 10:00 07/31/24 09:19 50 MLS/HR Lorazepam 0.25 mg Q4HP PRN IV 07/27/24 11:15 07/27/24 12:08 0.25 MG Carvedilol 3.125 mg Q12HR PO 07/29/24 10:00 07/31/24 21:18 3.125 MG Albuterol 2.5 mg Q6HR NEB 07/31/24 12:00 08/01/24 07:12 2.5 MG Ipratropium [place] 0.5 mg Q6HR NEB 07/31/24 12:00 08/01/24 07:12 0.5 MG Hydralazine HCl 10 mg Q6HP PRN IV 07/31/24 13:30 07/31/24 15:43 10 MG objective The patient is well-nourished and well-developed with no distress. MENTAL STATUS: Subjective CRANIAL NERVES: Pupils are reactive, left pupil is slightly bigger and is s/p surgery.There is conjugated eye movement. No signs of facial weakness. There is no abnormal vascular dilatation, skin secretion in face SENSATION: Okay to light touch and pain stimuli. MOTOR: Normal tone in the upper and lower extremity. Normal muscle bulk. No fasciculations. She moves the arms and legs REFLEXES: Deep tendon reflexes are symmetrical. No pathological reflexes. CEREBELLAR/COORDINATION: Deferred GAIT/STATION: deferred inprick and light touch Reflexes: Symmetric and without pathologic reflexes laboratory and microbiology Laboratory Tests 08/01/24 03:00 Test 08/01/24 03:00 Range/Units Serum Glucose 94 74-106 mg/dL Problem List Anisocoria with left-sided slightly bigger, uncertain clinical significance Left surgical pupil Altered mental status Hypoxic encephalopathy Metabolic encephalopathy Acute respiratory failure Pneumonia Acidosis, leukocytosis, Sepsis, septic shock ? Diabetic polyneuropathy Rule out other central nervous system pathology Thrombocytopenia, improving She keeps improving Assessment/Plan Monitoring Supportive treatment Follow-up labs Oxygen IV antibiotics DVT prophylaxis/SCD GI prophylaxis/Protonix 40 mg daily Further address possible diabetic polyneuropathy late CPAP trial More recommendation per clinical course This medical document was created using an electronic medical record system with [employer] dictation system. Although this document has been carefully reviewed, there may still be some phonetic and typographical errors. These areas are purely typographical due to imperfections of the software programs, and do not reflect any compromise in the patient's medical care Prognosis poor Dietary Evaluation Review Comments: 1.Consider EN regime nepro@20ml/hr to provide 850 Kcal 39g Protein 349ml Free Water to meet nutritional needs 2.Consider PN regime NPO > 5 days Expected Outcomes/Goals: >75% nutritional intake, labs WNL Plan discussed with: Other FLORENTINO CLARK MD Aug 01, 2024 10:04
[2024-08-01] MEDS ORDERED: ALBUMIN 25% 100 ML IV PRN (11:15)
[2024-08-01] MEDS: SODIUM CHL 0.9% 1000 ML BAG XX ONE (11:15)
[2024-08-01] MEDS: levoFLOXacin 250 MG TAB PO ONE (18:08)
--- NOTE | 2024-08-01 21:02 | DVHPN2 ---
Progress Note - Dictate Date Seen: Aug 01, 2024 Medical Necessity Reason Pt with a Central, PICC or Fol: Yes The following are medically ne: Central Line, Barron Catheter Reason for barron catheter: Strict I&O Subjective Patient was seen and evaluated in follow up in ICU. Chart/events reviewed. Patient remains extubated. Stable on 2L NC. Noted more energized. Receiving dialysis today. vital signs Vital Sign Date Time Temp Pulse Resp B/P (MAP) Pulse Ox O2 Delivery O2 Flow Rate FiO2 08/01/24 19:07 82 18 100 08/01/24 18:59 Nasal Cannula 2.0 08/01/24 18:59 28 08/01/24 16:30 98.0 147/60 (89) 98.0 Total Intake and Output 07/31/24 07/31/24 08/01/24 15:00 23:00 07:00 Intake Total 0 ml 15 ml 90 ml Balance 0 ml 15 ml 90 ml medications Current Medications Medications Dose Ordered Sig/Camacho Route Start Time Stop Time Status Last Admin Dose Admin Pantoprazole Sodium 40 mg DAILY IV 07/21/24 10:00 07/31/24 09:19 40 MG Diagnostic Test (Pha) 1 strip Q6HR 07/21/24 18:00 08/01/24 18:00 1 STRIP Insulin Human Regular Q6HR SC 07/21/24 18:00 07/31/24 17:49 2 UNITS Dextrose 50 ml UD PRN IV 07/21/24 15:00 07/21/24 19:04 50 ML Lorazepam 0.25 mg Q4HP PRN IV 07/27/24 11:15 07/27/24 12:08 0.25 MG Carvedilol 3.125 mg Q12HR PO 07/29/24 10:00 07/31/24 21:18 3.125 MG Albuterol 2.5 mg Q6HR NEB 07/31/24 12:00 08/01/24 18:59 2.5 MG Ipratropium [place] 0.5 mg Q6HR NEB 07/31/24 12:00 08/01/24 18:59 0.5 MG Hydralazine HCl 10 mg Q6HP PRN IV 07/31/24 13:30 07/31/24 15:43 10 MG Levofloxacin 250 mg Q48H PO 08/02/24 22:00 objective Vitals and nursing notes reviewed. General appearance: In no acute distress. HEENT: Normocephalic, atraumatic. Chest: S/p extubation. On 3L NC. No wheezes or rales. Heart: Regular rate; no murmur or gallop Abdomen: Soft, nontender, nondistended Musculoskeletal: No clubbing, no cyanosis, trace lower extremity edema Skin: Warm, moist. Neurological: Awake, following verbal commands. Able to move arms and legs. laboratory and microbiology Laboratory Tests 08/01/24 03:00 Test 08/01/24 03:00 Range/Units Serum Glucose 94 74-106 mg/dL Problem List Metabolic encephalopathy secondary to sepsis Acute respiratory failure Cardiorenal syndrome type 3 ESRD on hemodialysis Pericardial effusion Anasarca NSTEMI Transaminitis Normocytic anemia Diabetes - uncontrolled (hemoglobin A1c 7.1%) Hypertension Dyslipidemia Assessment/Plan Agree with current supportive medical care. Awaiting downgrade to telemetry floor. DC planning started for SNF. Neurology following. Cardiology and Pulmonary care management deferred. HD- 08/01- UF 2.5L as tolerated. Epogen 10,000 u IV x once. IV antibiotics with Levaquin. Started on pureed diet. GI / DVT prophylaxis. Additional plan as per the hospital course. Dietary Evaluation Review Comments: 1.Consider EN regime nepro@20ml/hr to provide 850 Kcal 39g Protein 349ml Free Water to meet nutritional needs 2.Consider PN regime NPO > 5 days Expected Outcomes/Goals: >75% nutritional intake, labs WNL Plan discussed with: Other (RN) JOSE LUIS SMITH DO Aug 01, 2024 21:02
[2024-08-01] MEDS: EPOETIN ALFA-EPBX 10,000 UNIT/1ML VIAL SC ONE (22:05)
--- NOTE | 2024-08-01 22:30 | DVHPN2 ---
Progress Note - Dictate Date Seen: Aug 01, 2024 Medical Necessity Reason Pt with a Central, PICC or Fol: Yes The following are medically ne: Central Line, Barron Catheter Reason for barron catheter: Strict I&O Subjective Patient was seen and evaluated in follow up in the ICU. Patient is more awake and alert today. Patient is on 3 LPM NC. Patient passed swallow eval last night. BUN 25, RN CLINICAL DOCUMENTATION SPECIALIST 3.73. Chest x-ray shows similar bilateral airspace disease and interstitial prominence. Pending downgrade to [facility] hospital bed. vital signs Vital Sign Date Time Temp Pulse Resp B/P (MAP) Pulse Ox O2 Delivery O2 Flow Rate FiO2 08/01/24 12:12 76 14 98 08/01/24 11:31 98.0 109/49 (69) 98.0 08/01/24 08:00 Nasal Cannula* 3 32 Total Intake and Output 07/31/24 07/31/24 08/01/24 15:00 23:00 07:00 Intake Total 0 ml 15 ml 90 ml Balance 0 ml 15 ml 90 ml medications Current Medications Medications Dose Ordered Sig/Camacho Route Start Time Stop Time Status Last Admin Dose Admin Pantoprazole Sodium 40 mg DAILY IV 07/21/24 10:00 07/31/24 09:19 40 MG Diagnostic Test (Pha) 1 strip Q6HR 07/21/24 18:00 08/01/24 11:51 1 STRIP Insulin Human Regular Q6HR SC 07/21/24 18:00 07/31/24 17:49 2 UNITS Dextrose 50 ml UD PRN IV 07/21/24 15:00 07/21/24 19:04 50 ML Ceftriaxone Sodium/Dextrose 50 ml @ 50 mls/hr DAILY IV 07/25/24 10:00 07/31/24 09:19 50 MLS/HR Lorazepam 0.25 mg Q4HP PRN IV 07/27/24 11:15 07/27/24 12:08 0.25 MG Carvedilol 3.125 mg Q12HR PO 07/29/24 10:00 07/31/24 21:18 3.125 MG Albuterol 2.5 mg Q6HR NEB 07/31/24 12:00 08/01/24 12:12 2.5 MG Ipratropium [place] 0.5 mg Q6HR NEB 07/31/24 12:00 08/01/24 12:12 0.5 MG Hydralazine HCl 10 mg Q6HP PRN IV 07/31/24 13:30 07/31/24 15:43 10 MG Albumin Human 100 ml @ 100 mls/hr PRN PRN IV 08/01/24 11:15 Hold objective GENERAL: Ill appearing, intubated on ventilator. LUNGS: Decreased breath sounds. CARDIOVASCULAR: Heart sounds are good. ABDOMEN: Soft. EXT: BLE edema. laboratory and microbiology Laboratory Tests 08/01/24 03:00 Test 08/01/24 03:00 Range/Units Serum Glucose 94 74-106 mg/dL Problem List NSTEMI likely type 2 NC. Acute on chronic HFpEF. Acute hypoxic respiratory failure. Pericardial effusion, recurrent. Sepsis, suspected pneumonia. HTN. HLD. 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 ESRD on HD. HLD. Gram-negative bacteremia. Diabetes mellitus type 2. Assessment/Plan Continued all current supportive medical care. Coreg. IV antibiotics as ordered. IV Hydralazine for SBP >160. GI prophylactics. Additional plan as per the hospital course. Critical care time of 45 minutes provided to include time spent evaluation of patient at bedside, when appropriate patient/family education for diagnosis, treatment plan, review of pertinent medical information and discussion of care with specialty providers and PCP. Dietary Evaluation Review Comments: 1.Consider EN regime nepro@20ml/hr to provide 850 Kcal 39g Protein 349ml Free Water to meet nutritional needs 2.Consider PN regime NPO > 5 days Expected Outcomes/Goals: >75% nutritional intake, labs WNL Plan discussed with: Patient DEWEY SMITH MD Aug 01, 2024 12:25
[2024-08-02] VITALS (12 sets, daily range): BP systolic 129–155; BP diastolic 48–74; PULSE 70–84; RESP 14–18; TEMP 97.8–98; O2SAT 96–100
[2024-08-02 09:05] LABS: Basophils # (auto) 0.1 10 ^3/uL (0-0.2); Basophils % (auto) 2.9 % (0.0-2.0); Eosinophils # (auto) 0.1 10 ^3/uL (0-0.8); Eosinophils % (auto) 1.5 % (0.0-7.0); Hematocrit 35.3 % (36.0-46.0); Hemoglobin 11.6 g/dL (12.2-16.2); Lymphocytes # (auto) 0.9 10 ^3/uL (0.4-5.4); Lymphocytes % (auto) 19.8 % (10.0-50.0); Mean Corpuscular Hemoglobin 33.4 pg (28.0-32.0); Mean Corpuscular Hgb Conc. 32.8 g/dL (32.0-36.0); Mean Corpuscular Volume 101.6 fL (80.0-100.0); Monocytes # (auto) 0.5 10 ^3/uL (0-1.3); Monocytes % (auto) 11.9 % (0.0-12.0); Neutrophils # (auto) 2.8 10 ^3/uL (1.6-8.6); Neutrophils % (auto) 63.9 % (37.0-80.0); Nucleated Red Blood Cells % 0.1 %; Platelet Count (auto) 216 10^3/uL (140-450); Red Blood Cells 3.47 10^6/uL (4.0-5.20); Red Cell Distribution Width 16.8 % (11.8-14.3); White Blood Cell 4.3 10^3/uL (4.4-10.8)
--- NOTE | 2024-08-02 09:08 | DVHPNRES ---
Progress Note Date Seen: Aug 02, 2024 Resident Creating Document: DAGMAR DEL CASTILLO RESIDENT Medical Necessity Reason Pt with a Central, PICC or Fol: Yes The following are medically ne: Central Line, Barron Catheter Reason for barron catheter: Strict I&O Subjective Review of Systems Patient is 69 years old female with past medical history of hypertension, dyslipidemia, diabetes mellitus type 2, COPD on home oxygen [place] O2, ESRD on hemodialysis 3 times per week Tuesday//Tuesday, history of CAD, [place], chronic anemia, history of AV fistula in the left arm, EVAR to thoracic or abdominal aorta(evidence in CT scan) was brought to the hospital due to cough and nausea and vomiting. Patient had productive cough with yellow phlegm, nausea and vomiting and diarrhea and abdominal pain before patient came in. As per brother done patient's alcoholic, drinks alcohol half to 1 L every day for beers every day, drinks Tequila. On arrival patient had altered level of consciousness, became unresponsive, [place] coma score was 3/15, required emergency endotracheal intubation. Patient was previously admitted at [facility] in June 08, 2024, April 22, 2024, March 29 2017, December 19, 2016. Most recent hospitalization was due to malfunction of the AV fistula along with dizziness, at the time patient was on home oxygen 4 liter/minute. On her previous admission Dr. Massey, interventional radiologist attempted to fix non functioning AV fistula 06/11/2024 but patient refused repeatedly and requested to be discharged home. Was also admitted on 22/04/24 due to intractable nausea and vomiting and abdominal pain. Patient was found to have right basilic DVT, possible ischemic colitis likely due to fluid overload.. Echo on 04/26/2024 revealed LVEF 50%, moderate pericardial effusion.Moderate to severely elevated right ventricular systolic pressure at 57 mm of mercury. Moderate mitral valve and tricuspid valve regurgitation. Discharged with a diagnosis of pulmonary edema, suspected cardiogenic shock. Admission initial lab workup revealed leukocytosis with WBC 11.6, increased anion gap 18, elevated creatinine 7.58, BUN 78, Troponin I 170> 146> 141, BNP > 5000 HGB A1c 7.1, lactic acidosis with lactic acid 4.3 elevated serum bilirubin 1.2, elevated AST 59 ALT 20, elevated> alkaline phosphatase 218, triglyceride 232, cholesterol 167, LDL 75, HDL 27. UDS negative. Influenza type a and B, SARS COVID negative. Urinalysis negative for UTI. Initial ABG revealed ABG 7.31, pCO2 43.6, PO2 83.2, bicarbonate 21.8. Initial CT Head scan revealed no acute intracranial abnormality. CXR revealed- Moderate cardiomegaly. Prominent interstitial markings bilaterally. Small bilateral pleural effusions with superimposed infection not excluded no pneumothorax. CT chest, Abdomen and Pelvis revealed-Findings consistent with fluid overload state which include cardiomegaly, pericardial effusion, pleural effusions, ascites, and anasarca. Scattered consolidations throughout the bilateral lungs. Moderate periportal edema which has a broad differential that includes viral hepatitis or acute cholangitis x-ray on 07/20/2024 revealed-Patient has a pericardial effusion which could cause tamponade I recommend cardiac echo. There is a large consolidate involving the right lower lobe and there is pulmonary vascular congestion as well. Carotid Doppler on 07/21/2024 revealed- Very limited examin ation. Unable to evaluate the left carotid system and unable to visualize the right common carotid artery. The degree of carotid stenosis can not be determined on this examination. Findings in the visualized portions of the right carotid system as described above. Single organ ultrasound on 07/21/2024 revealed-No gallstones or sludge.Nonspecific thickened/ edematous appearance to the gallbladder wall. May be related to 3rd spacing. Echo 2D on 07/22/2024 revealed LVEF 30%, moderately reduced, moderately dilated RV, hypokinetic, global pericardial effusion, in range of 1-1.5 cm. Dilated all cardiac chambers and are hypokinetic. Blood culture on 07/20/2024 revealed E coli. Respiratory culture on 0 07/20/24 also grew E coli. Urine culture no growth. MRSA screening positive. Repeat Blood culture on 07/22/24 shows no growth. Patient was seen today for clinical evaluation. Labs than chart reviewed. Restarted DVT prophylaxis heparin as platelet trending within normal limit Social service consult for placement to SNF fot PT but patient refused to go to SNT. patient AAOX3 Overnight patient's BP ranging from 109-179/52-68, pulse-77-87, temperature 97.8-98.7 WBC trending > 11.6> 8.2> 17.6> 13.1> 8.6> 5.5> 5.9> 7.1> 8.1> 8.3> 7.3> 6.7> 4.4> 4.3 hemoglobin 12.8> 11.8> 10.4> 10.2> 9.8> 10.2> 10.2>> 10.5 10.6> 11.2> 11.1> 10.9> 11.6 Platelet 225> 165> 154> 104> 79> 54> 72> 83> 71> 121> 125 > 156> 169> 216 Sodium 134>> 132> 132> 132> 136> 135> 139> 141> 140> 140> 142 potassium> 4.2> 3.7>> 4.1> 3.6> 3.8> 3.5> 3.7> 3.1> 3.1> 3.3> 4.1 >3.7> 3.6> 3.7 Anion gap> 18> 17> 16> 13> 16> 15> 11 Serum creatinine 7.58> 7.28> 8.21> 6.30> 6.75> 6.83> 4.99> 5.75> 3.97> 0.44> 2.45> 2.17> 3.34> 2.51> 3.73 BUN> 78> 74 >90> 64> 69> 44> 29> 12> 8> 21> 17> 25 Provider called and talked to patient's brother Roland [phone], discussed patient's current medical condition, plan of care and answered his questions. Objective vital signs Vital Sign Date Time Temp Pulse Resp B/P (MAP) Pulse Ox O2 Delivery O2 Flow Rate FiO2 08/02/24 07:36 80 16 100 08/02/24 07:30 Nasal Cannula 2.0 08/02/24 07:30 28 08/01/24 23:06 135/84 08/01/24 21:00 98.0 98.0 Total Intake and Output 08/01/24 08/01/24 08/02/24 14:59 22:59 06:59 Intake Total 550 ml 0 ml 210 ml Output Total 1100 ml Balance -550 ml 0 ml 210 ml medications Current Medications Medications Dose Ordered Sig/Camacho Route Start Time Stop Time Status Last Admin Dose Admin Pantoprazole Sodium 40 mg DAILY IV 07/21/24 10:00 07/31/24 09:19 40 MG Diagnostic Test (Pha) 1 strip Q6HR 07/21/24 18:00 08/02/24 06:21 1 STRIP Insulin Human Regular Q6HR SC 07/21/24 18:00 07/31/24 17:49 2 UNITS Dextrose 50 ml UD PRN IV 07/21/24 15:00 07/21/24 19:04 50 ML Lorazepam 0.25 mg Q4HP PRN IV 07/27/24 11:15 07/27/24 12:08 0.25 MG Carvedilol 3.125 mg Q12HR PO 07/29/24 10:00 08/01/24 22:06 3.125 MG Albuterol 2.5 mg Q6HR NEB 07/31/24 12:00 08/02/24 07:30 2.5 MG Ipratropium [place] 0.5 mg Q6HR NEB 07/31/24 12:00 08/02/24 07:30 0.5 MG Hydralazine HCl 10 mg Q6HP PRN IV 07/31/24 13:30 07/31/24 15:43 10 MG Levofloxacin 250 mg Q48H PO 08/02/24 22:00 Examination General examination- awake and alert, HEENT- PEERLA, no acute nasal discharge Cardiovascular- S1-S2 audible, rate and rhythm regular, no murmur Respiratory- CTAB, no wheeze or rhonchi Gastrointestinal-nontender, bowel sound+. Nondistended Musculoskeletal-no acute joint swelling or tenderness or redness Lower extremity- no leg edema Neurological- cranial nerves intact, no acute dysarthria or dysphagia Skin- no acute rash or purpura laboratory and microbiology Test 08/02/24 08:45 Range/Units Serum Glucose Pending Microbiology Date/Time Source Procedure Growth Status 07/22/24 15:49 Blood Blood Culture - Final NO GROWTH AFTER 5 DAYS OF INCUBATION. Complete 07/22/24 01:47 Nose MRSA Screen - Final Complete 07/21/24 12:40 Voided Urine Urine Culture - Final Complete 07/20/24 21:29 Sputum Gram Stain - Final Complete 07/20/24 21:29 Respiratory Culture - Final Escherichia coli Complete Problem List/Assessment/Plan Problem List/Assessment/Plan Assessment and plan Neurology Metabolic encephalopathy/uremic encephalopathy/hypoxic encephalopathy -status post extubation on 07/31/2024 Continue current management - avoid dehydration and nephrotoxic drugs Cardiovascular Septic shock Acute heart failure HFrEF, EF-30%. NSTEMI type 2 demand lead ischemia Acute pulmonary edema likely due to volume overload Pericardial effusion, recurrent -Status post EVAR to thoracic / abdominal aorta Anasarca Suspected cardiac tamponade -H/O HTN, - HLD - Echo 2D on 07/22/2024 revealed LVEF 30%, moderately reduced, moderately dilated RV, hypokinetic, global pericardial effusion, in range of 1-1.5 cm. Dilated all cardiac chambers and are hypokinetic -continue current management Respiratory Acute hypoxic respiratory failure due to acute pulmonary edema/volume overload Bilateral pleural effusion -suspected acute exertional COPD Suspected pneumonia Gram-positive versus Gram-negative B/L Lower lung consolidation Pleural effusion - apneic episode during CPAP trial on 07/27/2024 - Blood culture on 07/20/2024 revealed E coli. Respiratory culture on 07/20/24 also grew E coli. -repeat blood culture on 07/22/2024 preliminary report no growth MRSA screening positive -Levofloxacin 250 po qd -mupirocin as prescribed Gastroenterology -suspected viral hepatitis/cholangitis -ascites -transaminitis -continue pantoprazole 40 mg PO QD Genitourinary/renal -ESRD on HD -fluid overload likely due to ESRD - avoid dehydration and nephrotoxic drugs Hemato oncology --anemia of chronic disease -thrombocytopenia resolved -leukocytosis -monitor CBC Infectious -septic shock -leukocytosis -pneumonia Gram-positive versus Gram-negative - Blood culture on 07/20/2024 revealed E coli. Respiratory culture on 07/20/24 also grew E coli. -blood culture on 0 07/22/24 preliminary reports no growth MRSA screening positive -urine culture negative -continue levofloxacin 250 mg p.o. daily -mupirocin as prescribed Endocrine/metabolic disorder Metabolic acidosis Lactic acidosis Dilutional hyponatremia Diabetes mellitus type 2 -hyperlipidemia -malnutrition Skin/alimentary Patient was extubated on 07/31/2024 Goals of care/ Code status ; discussed >19 minutes PUD prophylaxis: Pantoprazole DVT prophylaxis: Restarted Heparin as patient has thrombocytopenia resolved Plan discussed with Dr. Galeas, nursing staff, Roland () Total time spent on patient evaluation, chart review, assessment and plan, total time spent 25 Minutes Plan discussed with: Patient, Other (KALIN ruby ) My Orders My Orders Orders - DAGMAR DEL CASTILLO RESIDENT Procedure Category Date Status Time Levofloxacin Tablet PHA 08/02/24 In Process (Levaquin Tablet) 22:00 Complete Blood Count LAB 08/02/24 In Process 08:50 Basic Metabolic Panel LAB 08/02/24 In Process 08:50 Dietary Evaluation Review Comments: 1.Consider EN regime nepro@20ml/hr to provide 850 Kcal 39g Protein 349ml Free Water to meet nutritional needs 2.Consider PN regime NPO > 5 days Expected Outcomes/Goals: >75% nutritional intake, labs WNL Date of Service: Aug 02, 2024 Billing Provider: JOSIANE GALEAS MD Common Visit Codes: 55393-[id number] INP/OBS CARE(HIGH) Secondary Visit Codes: [id number] CARE PLAN 30 MINUTES DAGMAR DEL CASTILLO RESIDENT Aug 02, 2024 09:08 JOSIANE GALEAS MD Aug 04, 2024 20:14
[2024-08-02 09:25] LABS: Chloride 99 mmol/L (98-107); Potassium 4.2 mmol/L (3.5-5.1); Sodium 142 mmol/L (136-145)
[2024-08-02 09:26] LABS: Anion Gap 12 (5-15); Calcium 9.1 mg/dL (8.7-10.4); Carbon Dioxide 31 mmol/L (20-31)
[2024-08-02 09:31] LABS: BUN/Creatinine Ratio 5.2 (10.0-20.0); Blood Urea Nitrogen 15 mg/dL (9-23)
[2024-08-02 09:42] LABS: Glucose 73 mg/dL (74-106)
--- NOTE | 2024-08-02 11:12 | DVHPN2 ---
Progress Note - Dictate Date Seen: Aug 02, 2024 Medical Necessity Reason Pt with a Central, PICC or Fol: Yes The following are medically ne: Central Line, Barron Catheter Reason for barron catheter: Strict I&O Subjective Ms. Em is a 69 years old right-handed female with a history of hypertension, diabetes, the patient came to the hospital on 07/20/2024 with a chief come of shortness of breath. At this time, she was intubated sedated, on pressor drip, responds to stroke painful stimuli, history is obtained from chart review I saw on 12/20/2016 for ALOC (UTI, hypotension) She was extubated in the morning on 07/31/2024 I have seen and examined the patient, I have discussed with her nurse, she keeps improving, she follows verbal commands when she understands Pupils remained unequal The feet is sensitivity to touch UDS, 07/21/2024: Negative Plasma alcohol, 07/20/2024: <3 Urinalysis, : WBC: 15, urine leukocyte esterase: Negative Blood culture, 07/20/2024: E coli Respiratory culture, 07/20/2024: E coli ABG, 07/20/2024: Acidosis WBC/Hb/PLT, 07/23/2024: 3.1/10.4/104/98 PT/INR/PTT, 07/20/2024: 15.1/1.48/ BUNs/CR, 07/20/2024: 78/7.58, 07/22/2024: 19/8.21, 07/23/2024: 64/6.3 Lactic acid, 07/08/2024, 4.3, 3.6 Total bilirubin/AST/ALT/AP, 07/22/2024: 1/73/18/157 TG/HDL/LDL/HDL, 07/20/2024: 232/167/75/27 Vitamin B12, 12/2016:1069, 12/22/16: >2000 Folic acid, 12/2016:10.79 TSH, 12/2016:0.69 EEG, 12/21/16: Normal Carotid Doppler, 07/21/2024: Very limited examination. Unable to evaluate the left carotid system and unable to visualize the right common carotid artery. The degree of carotid stenosis can not be determined on this examination. Findings in the visualized portions of the right carotid system as described above Arterial Doppler, legs, 07/24/2024: 20-49% stenosis of the right common femoral artery based on peak systolic velocity criteria. No hemodynamically significant stenosis based on peak systolic velocity criteria on the left. Bilateral abnormal monophasic arterial waveforms suggest underlying peripheral arterial disea Echocardiogram, 07/22/2024: GLOBAL PERICARDIAL EFFUSION IN RANGE OF 1.0 TO 1.5 CM IN WIDTH NO RV COLLAPSE NO EVIDENCE OF PERICARDIAL TAMPONADE DILATED ALL CARDIAC CHAMBERS AND ARE HYPOKINETIC LV EF IS 30% AND IS MODERATELY REDUCED MODERATELY DILATED RV AND IS HYPOKINETIC NORMAL VALVES Chest, 07/20/2024: Patient has a pericardial effusion which could cause tamponade I recommend cardiac echo. There is a large consolidate involving the right lower lobe and there is pulmonary vascular congestion as well ( Endotracheal tube is below the clavicles just above the aortic arch) Chest x-ray, 07/23/2024: Increasing congestive heart failure. Chest x-ray, 07/28/2024: Moderate interval improvement in patchy bilateral pulmonic middle and lower lung zone airspace disease and bilateral pleural effusions CT head, 07/20/2024: No acute intracranial abnormality vital signs Vital Sign Date Time Temp Pulse Resp B/P (MAP) Pulse Ox O2 Delivery O2 Flow Rate FiO2 08/02/24 10:03 79 155/65 08/02/24 08:30 97.9 17 100 97.9 08/02/24 07:30 Nasal Cannula 2.0 08/02/24 07:30 28 Total Intake and Output 08/01/24 08/01/24 08/02/24 15:00 23:00 07:00 Intake Total 550 ml 0 ml 210 ml Output Total 1100 ml Balance -550 ml 0 ml 210 ml medications Current Medications Medications Dose Ordered Sig/Camacho Route Start Time Stop Time Status Last Admin Dose Admin Pantoprazole Sodium 40 mg DAILY IV 07/21/24 10:00 08/02/24 09:57 40 MG Diagnostic Test (Pha) 1 strip Q6HR 07/21/24 18:00 08/02/24 06:21 1 STRIP Insulin Human Regular Q6HR SC 07/21/24 18:00 07/31/24 17:49 2 UNITS Dextrose 50 ml UD PRN IV 07/21/24 15:00 07/21/24 19:04 50 ML Lorazepam 0.25 mg Q4HP PRN IV 07/27/24 11:15 07/27/24 12:08 0.25 MG Carvedilol 3.125 mg Q12HR PO 07/29/24 10:00 08/02/24 10:03 3.125 MG Albuterol 2.5 mg Q6HR NEB 07/31/24 12:00 08/02/24 07:30 2.5 MG Ipratropium [place] 0.5 mg Q6HR NEB 07/31/24 12:00 08/02/24 07:30 0.5 MG Hydralazine HCl 10 mg Q6HP PRN IV 07/31/24 13:30 07/31/24 15:43 10 MG Levofloxacin 250 mg Q48H PO 08/02/24 22:00 Megestrol Acetate 200 mg BID PO 08/02/24 11:00 UNV objective The patient is well-nourished and well-developed with no distress. MENTAL STATUS: Subjective CRANIAL NERVES: Pupils are reactive, left pupil is slightly bigger and is s/p surgery.There is conjugated eye movement. No signs of facial weakness. There is no abnormal vascular dilatation, skin secretion in face SENSATION: The feet are sensitive to touch MOTOR: Normal tone in the upper and lower extremity. Normal muscle bulk. No fasciculations. She moves the arms and legs REFLEXES: Deep tendon reflexes are symmetrical. No pathological reflexes. CEREBELLAR/COORDINATION: Deferred GAIT/STATION: deferred inprick and light touch Reflexes: Symmetric and without pathologic reflexes laboratory and microbiology Laboratory Tests 08/02/24 08:45 Test 08/02/24 08:45 Range/Units Serum Glucose 73 L 74-106 mg/dL Problem List Anisocoria with left-sided slightly bigger, uncertain clinical significance Left surgical pupil Altered mental status Hypoxic encephalopathy Metabolic encephalopathy Acute respiratory failure Pneumonia Acidosis, leukocytosis, Sepsis, septic shock Diabetic polyneuropathy Rule out other central nervous system pathology Thrombocytopenia, improving She keeps improving Assessment/Plan Monitoring Supportive treatment Follow-up labs Oxygen IV antibiotics DVT prophylaxis/SCD GI prophylaxis/Protonix 40 mg daily Further address possible diabetic polyneuropathy late CPAP trial More recommendation per clinical course This medical document was created using an electronic medical record system with [employer] dictation system. Although this document has been carefully reviewed, there may still be some phonetic and typographical errors. These areas are purely typographical due to imperfections of the software programs, and do not reflect any compromise in the patient's medical care Prognosis poor Dietary Evaluation Review Comments: 1.Consider EN regime nepro@20ml/hr to provide 850 Kcal 39g Protein 349ml Free Water to meet nutritional needs 2.Consider PN regime NPO > 5 days Expected Outcomes/Goals: >75% nutritional intake, labs WNL Plan discussed with: Other FLORENTINO CLARK MD Aug 02, 2024 11:12
[2024-08-02] MEDS: MEGESTROL ACET 400MG/10ML ORAL SUSP PO SCH (12:49)
--- NOTE | 2024-08-02 20:30 | DVHPN2 ---
Progress Note - Dictate Date Seen: Aug 02, 2024 Medical Necessity Reason Pt with a Central, PICC or Fol: Yes The following are medically ne: Central Line, Barron Catheter Reason for barron catheter: Strict I&O Subjective Patient was seen and evaluated in follow up. No acute events overnight. Remains stable on 2L NC. Patient is improving, following verbal commands when she understands. Refusing to go to SNF and is requesting to go home. vital signs Vital Sign Date Time Temp Pulse Resp B/P (MAP) Pulse Ox O2 Delivery O2 Flow Rate FiO2 08/02/24 19:46 82 16 100 08/02/24 19:39 Nasal Cannula* 2 28 08/02/24 16:39 98.0 136/74 (94) 98.0 Total Intake and Output 08/01/24 08/01/24 08/02/24 15:00 23:00 07:00 Intake Total 550 ml 0 ml 210 ml Output Total 1100 ml Balance -550 ml 0 ml 210 ml medications Current Medications Medications Dose Ordered Sig/Camacho Route Start Time Stop Time Status Last Admin Dose Admin Diagnostic Test (Pha) 1 strip Q6HR 07/21/24 18:00 08/02/24 18:00 1 STRIP Insulin Human Regular Q6HR SC 07/21/24 18:00 08/02/24 17:39 3 UNITS Dextrose 50 ml UD PRN IV 07/21/24 15:00 07/21/24 19:04 50 ML Lorazepam 0.25 mg Q4HP PRN IV 07/27/24 11:15 07/27/24 12:08 0.25 MG Carvedilol 3.125 mg Q12HR PO 07/29/24 10:00 08/02/24 10:03 3.125 MG Albuterol 2.5 mg Q6HR NEB 07/31/24 12:00 08/02/24 19:41 2.5 MG Ipratropium [place] 0.5 mg Q6HR NEB 07/31/24 12:00 08/02/24 19:41 0.5 MG Hydralazine HCl 10 mg Q6HP PRN IV 07/31/24 13:30 07/31/24 15:43 10 MG Levofloxacin 250 mg Q48H PO 08/02/24 22:00 Megestrol Acetate 200 mg BID PO 08/02/24 11:00 08/02/24 12:49 200 MG Pantoprazole Sodium 40 mg DAILY@0600 PO 08/03/24 06:00 Heparin Sodium (Porcine) 5,000 units Q12HR SC 08/02/24 22:00 objective Vitals and nursing notes reviewed. General appearance: In no acute distress. HEENT: Normocephalic, atraumatic. Chest: On SpO2 with 2L NC. No wheezes or rales. Heart: Regular rate; no murmur or gallop Abdomen: Soft, nontender, nondistended Musculoskeletal: No clubbing, no cyanosis, trace lower extremity edema Skin: Warm, moist. Neurological: Awake, following verbal commands. Able to move arms and legs. laboratory and microbiology Laboratory Tests 08/02/24 08:45 Test 08/02/24 08:45 Range/Units Serum Glucose 73 L 74-106 mg/dL Problem List Metabolic encephalopathy secondary to sepsis Acute respiratory failure Cardiorenal syndrome type 3 ESRD on hemodialysis Pericardial effusion Anasarca NSTEMI Transaminitis Normocytic anemia Diabetes - uncontrolled (hemoglobin A1c 7.1%) Hypertension Dyslipidemia Assessment/Plan Agree with current supportive medical care. Cardiology and Pulmonary care management deferred. Neurology following. PT as recommended. AM labs: CMP, CBC and Mg. Next dialysis 08/03. IV antibiotics with Levaquin. Diet as tolerated. GI / DVT prophylaxis. Additional plan as per the hospital course. Dietary Evaluation Review Comments: 1.Consider EN regime nepro@20ml/hr to provide 850 Kcal 39g Protein 349ml Free Water to meet nutritional needs 2.Consider PN regime NPO > 5 days Expected Outcomes/Goals: >75% nutritional intake, labs WNL Plan discussed with: Patient, Other (RN) JOSE LUIS SMITH DO Aug 02, 2024 20:29
[2024-08-02] MEDS: ACETAMINOPHEN 325 MG TAB PO ONE (21:07)
[2024-08-02] MEDS: levoFLOXacin 250 MG TAB PO SCH (21:07)
[2024-08-02] MEDS: HEPARIN SODIUM (PORCINE) 5000 UNITS/ML 1ML VIAL SC SCH (21:08)
[2024-08-02] MEDS: LIDOCAINE 5% TOPICAL PATCH TOP ONE (21:09)
--- NOTE | 2024-08-02 22:22 | DVHPN2 ---
Progress Note - Dictate Date Seen: Aug 02, 2024 Medical Necessity Reason Pt with a Central, PICC or Fol: Yes The following are medically ne: Central Line, Barron Catheter Reason for barron catheter: Strict I&O Subjective Patient was seen and evaluated in follow up. Patient was downgraded to telemetry. Patient follows verbal commands. WBC 4.3, PRODUCTION ILLUSTRATOR 2.87. Telemetry reviewed. vital signs Vital Sign Date Time Temp Pulse Resp B/P (MAP) Pulse Ox O2 Delivery O2 Flow Rate FiO2 08/02/24 10:03 79 155/65 08/02/24 08:30 97.9 17 100 97.9 08/02/24 07:30 Nasal Cannula 2.0 08/02/24 07:30 28 Total Intake and Output 08/01/24 08/01/24 08/02/24 15:00 23:00 07:00 Intake Total 550 ml 0 ml 210 ml Output Total 1100 ml Balance -550 ml 0 ml 210 ml medications Current Medications Medications Dose Ordered Sig/Camacho Route Start Time Stop Time Status Last Admin Dose Admin Pantoprazole Sodium 40 mg DAILY IV 07/21/24 10:00 08/02/24 09:57 40 MG Diagnostic Test (Pha) 1 strip Q6HR 07/21/24 18:00 08/02/24 11:32 1 STRIP Insulin Human Regular Q6HR SC 07/21/24 18:00 07/31/24 17:49 2 UNITS Dextrose 50 ml UD PRN IV 07/21/24 15:00 07/21/24 19:04 50 ML Lorazepam 0.25 mg Q4HP PRN IV 07/27/24 11:15 07/27/24 12:08 0.25 MG Carvedilol 3.125 mg Q12HR PO 07/29/24 10:00 08/02/24 10:03 3.125 MG Albuterol 2.5 mg Q6HR NEB 07/31/24 12:00 08/02/24 07:30 2.5 MG Ipratropium [place] 0.5 mg Q6HR NEB 07/31/24 12:00 08/02/24 07:30 0.5 MG Hydralazine HCl 10 mg Q6HP PRN IV 07/31/24 13:30 07/31/24 15:43 10 MG Levofloxacin 250 mg Q48H PO 08/02/24 22:00 Megestrol Acetate 200 mg BID PO 08/02/24 11:00 objective GENERAL: Ill appearing, intubated on ventilator. LUNGS: Decreased breath sounds. CARDIOVASCULAR: Heart sounds are good. ABDOMEN: Soft. EXT: BLE edema. laboratory and microbiology Laboratory Tests 08/02/24 08:45 Test 08/02/24 08:45 Range/Units Serum Glucose 73 L 74-106 mg/dL Problem List NSTEMI likely type 2 HI. Acute on chronic HFpEF. Acute hypoxic respiratory failure. Pericardial effusion, recurrent. Sepsis, suspected pneumonia. HTN. HLD. 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 ESRD on HD. HLD. Gram-negative bacteremia. Diabetes mellitus type 2. Assessment/Plan Continued all current supportive medical care. Coreg. IV antibiotics as ordered. IV Hydralazine for SBP >160. GI prophylactics. Additional plan as per the hospital course. Dietary Evaluation Review Comments: 1.Consider EN regime nepro@20ml/hr to provide 850 Kcal 39g Protein 349ml Free Water to meet nutritional needs 2.Consider PN regime NPO > 5 days Expected Outcomes/Goals: >75% nutritional intake, labs WNL Plan discussed with: Patient DEWEY SMITH MD Aug 02, 2024 11:56
[2024-08-03] VITALS (16 sets, daily range): BP systolic 125–166; BP diastolic 49–73; PULSE 68–85; RESP 16–20; TEMP 97.9–98.4; O2SAT 95–100
[2024-08-03] MEDS: PANTOPRAZOLE 40 MG TAB PO SCH (05:23)
[2024-08-03 10:10] LABS: Basophils # (auto) 0.1 10 ^3/uL (0-0.2); Basophils % (auto) 1.5 % (0.0-2.0); Eosinophils # (auto) 0.1 10 ^3/uL (0-0.8); Hematocrit 33.1 % (36.0-46.0); Hemoglobin 10.8 g/dL (12.2-16.2); Lymphocytes # (auto) 0.9 10 ^3/uL (0.4-5.4); Lymphocytes % (auto) 16.5 % (10.0-50.0); Mean Corpuscular Hemoglobin 32.5 pg (28.0-32.0); Mean Corpuscular Hgb Conc. 32.7 g/dL (32.0-36.0); Mean Corpuscular Volume 99.3 fL (80.0-100.0); Monocytes # (auto) 0.8 10 ^3/uL (0-1.3); Monocytes % (auto) 15.6 % (0.0-12.0); Neutrophils # (auto) 3.4 10 ^3/uL (1.6-8.6); Neutrophils % (auto) 65.4 % (37.0-80.0); Nucleated Red Blood Cells % 0.1 %; Platelet Count (auto) 232 10^3/uL (140-450); Red Blood Cells 3.34 10^6/uL (4.0-5.20); Red Cell Distribution Width 16.5 % (11.8-14.3); White Blood Cell 5.2 10^3/uL (4.4-10.8)
[2024-08-03] MEDS: LIDOCAINE 5% TOPICAL PATCH TOP SCH (11:23)
--- NOTE | 2024-08-03 12:04 | DVHPNRES ---
Progress Note Date Seen: Aug 03, 2024 Resident Creating Document: SHAQ TOVAR Medical Necessity Reason Pt with a Central, PICC or Fol: Yes The following are medically ne: Central Line, Barron Catheter Reason for barron catheter: Strict I&O Subjective Review of Systems Patient is 69 years old female with past medical history of hypertension, dyslipidemia, diabetes mellitus type 2, COPD on home oxygen [place] O2, ESRD on hemodialysis 3 times per week Tuesday//Tuesday, history of CAD, [place], chronic anemia, history of AV fistula in the left arm, EVAR to thoracic or abdominal aorta(evidence in CT scan) was brought to the hospital due to cough and nausea and vomiting. Patient had productive cough with yellow phlegm, nausea and vomiting and diarrhea and abdominal pain before patient came in. As per brother done patient's alcoholic, drinks alcohol half to 1 L every day for beers every day, drinks Tequila. On arrival patient had altered level of consciousness, became unresponsive, Maxwell coma score was 3/15, required emergency endotracheal intubation. Patient was previously admitted at [facility] in June 08, 2024, April 22, 2024, March 29 2017, December 19, 2016. Most recent hospitalization was due to malfunction of the AV fistula along with dizziness, at the time patient was on home oxygen 4 liter/minute. On her previous admission Dr. Massey, interventional radiologist attempted to fix non functioning AV fistula 06/11/2024 but patient refused repeatedly and requested to be discharged home. Was also admitted on 22/04/24 due to intractable nausea and vomiting and abdominal pain. Patient was found to have right basilic DVT, possible ischemic colitis likely due to fluid overload.. Echo on 04/26/2024 revealed LVEF 50%, moderate pericardial effusion.Moderate to severely elevated right ventricular systolic pressure at 57 mm of mercury. Moderate mitral valve and tricuspid valve regurgitation. Discharged with a diagnosis of pulmonary edema, suspected cardiogenic shock. Admission initial lab workup revealed leukocytosis with WBC 11.6, increased anion gap 18, elevated creatinine 7.58, BUN 78, Troponin I 170> 146> 141, BNP > 5000 HGB A1c 7.1, lactic acidosis with lactic acid 4.3 elevated serum bilirubin 1.2, elevated AST 59 ALT 20, elevated> alkaline phosphatase 218, triglyceride 232, cholesterol 167, LDL 75, HDL 27. UDS negative. Influenza type a and B, SARS COVID negative. Urinalysis negative for UTI. Initial ABG revealed ABG 7.31, pCO2 43.6, PO2 83.2, bicarbonate 21.8. Initial CT Head scan revealed no acute intracranial abnormality. CXR revealed- Moderate cardiomegaly. Prominent interstitial markings bilaterally. Small bilateral pleural effusions with superimposed infection not excluded no pneumothorax. CT chest, Abdomen and Pelvis revealed-Findings consistent with fluid overload state which include cardiomegaly, pericardial effusion, pleural effusions, ascites, and anasarca. Scattered consolidations throughout the bilateral lungs. Moderate periportal edema which has a broad differential that includes viral hepatitis or acute cholangitis x-ray on 07/20/2024 revealed-Patient has a pericardial effusion which could cause tamponade I recommend cardiac echo. There is a large consolidate involving the right lower lobe and there is pulmonary vascular congestion as well. Carotid Doppler on 07/21/2024 revealed- Very limited examination. Unable to evaluate the left carotid system and unable to visualize the right common carotid artery. The degree of carotid stenosis can not be determined on this examination. Findings in the visualized portions of the right carotid system as described above. Single organ ultrasound on 07/21/2024 revealed-No gallstones or sludge.Nonspecific thickened/ edematous appearance to the gallbladder wall. May be related to 3rd spacing. Echo 2D on 07/22/2024 revealed LVEF 30%, moderately reduced, moderately dilated RV, hypokinetic, global pericardial effusion, in range of 1-1.5 cm. Dilated all cardiac chambers and are hypokinetic. Blood culture on 07/20/2024 revealed E coli. Respiratory culture on 0 07/20/24 also grew E coli. Urine culture no growth. MRSA screening positive. Repeat Blood culture on 07/22/24 shows no growth. Patient was seen today for clinical evaluation. Labs than chart reviewed. Restarted DVT prophylaxis heparin as platelet trending within normal limit Social service consult for placement to SNF fot PT but patient refused to go to SNT. patient AAOX3 Overnight patient's BP ranging from 129-164/52-63, pulse 68-84, 97.8-98.2 Patient on hemodialysis Patient refused to go to SNF Order for home health for physical therapy and wound care in place Plan is to do an ABG in room air to see if patient qualifies for home oxygen- ABG revealed pH 7.48, pCO2 40.2, PO2 39.0, bicarbonate 29.5 Order for social service consult home oxygen [place] O2 3 L/min in place WBC trending > 11.6> 8.2> 17.6> 13.1> 8.6> 5.5> 5.9> 7.1> 8.1> 8.3> 7.3> 6.7> 4.4> 4.3> 5.2 hemoglobin 12.8> 11.8> 10.4> 10.2> 9.8> 10.2> 10.2>> 10.5 10.6> 11.2> 11.1> 10.9> 11.6> 10.8 Platelet 225> 165> 154> 104> 79> 54> 72> 83> 71> 121> 125 > 156> 169> 216> 232 Sodium 134>> 132> 132> 132> 136> 135> 139> 141> 140> 140> 142> 142 potassium> 4.2> 3.7>> 4.1> 3.6> 3.8> 3.5> 3.7> 3.1> 3.1> 3.3> 4.1 >3.7> 3.6> 3.7> 4.2 Anion gap> 18> 17> 16> 13> 16> 15> 11>12 Serum creatinine 7.58> 7.28> 8.21> 6.30> 6.75> 6.83> 4.99> 5.75> 3.97> 0.44> 2.45> 2.17> 3.34> 2.51> 3.73> 2.87 BUN> 78> 74 >90> 64> 69> 44> 29> 12> 8> 21> 17> 25> 15 Provider called and talked to patient's brother Roland [phone], discussed patient's current medical condition, plan of care and answered his questions. Objective vital signs Vital Sign Date Time Temp Pulse Resp B/P (MAP) Pulse Ox O2 Delivery O2 Flow Rate FiO2 08/03/24 11:22 85 166/83 08/03/24 09:00 98.2 17 100 98.2 08/03/24 06:38 Nasal Cannula 2.0 08/03/24 06:38 28 Total Intake and Output 308/02/24 08/03/24 15:00 23:00 07:00 Intake Total 400 ml 200 ml Balance 400 ml 200 ml medications Current Medications Medications Dose Ordered Sig/Camacho Route Start Time Stop Time Status Last Admin Dose Admin Diagnostic Test (Pha) 1 strip Q6HR 07/21/24 18:00 08/03/24 11:48 1 STRIP Insulin Human Regular Q6HR SC 07/21/24 18:00 08/03/24 05:52 2 UNITS Dextrose 50 ml UD PRN IV 07/21/24 15:00 07/21/24 19:04 50 ML Lorazepam 0.25 mg Q4HP PRN IV 07/27/24 11:15 07/27/24 12:08 0.25 MG Carvedilol 3.125 mg Q12HR PO 07/29/24 10:00 08/03/24 11:22 3.125 MG Albuterol 2.5 mg Q6HR NEB 07/31/24 12:00 08/03/24 06:38 2.5 MG Ipratropium [place] 0.5 mg Q6HR NEB 07/31/24 12:00 08/03/24 06:38 0.5 MG Hydralazine HCl 10 mg Q6HP PRN IV 07/31/24 13:30 07/31/24 15:43 10 MG Levofloxacin 250 mg Q48H PO 08/02/24 22:00 08/02/24 21:07 250 MG Megestrol Acetate 200 mg BID PO 08/02/24 11:00 08/03/24 11:31 200 MG Pantoprazole Sodium 40 mg DAILY@0600 PO 08/03/24 06:00 08/03/24 05:23 40 MG Heparin Sodium (Porcine) 5,000 units Q12HR SC 08/02/24 22:00 08/03/24 11:40 5,000 UNITS Lidocaine 1 patch DAILY TOP 08/03/24 10:00 08/03/24 11:23 1 PATCH Examination General examination- awake and alert, HEENT- PEERLA, no acute nasal discharge Cardiovascular- S1-S2 audible, rate and rhythm regular, no murmur Respiratory- CTAB, no wheeze or rhonchi Gastrointestinal-nontender, bowel sound+. Nondistended Musculoskeletal-no acute joint swelling or tenderness or redness Lower extremity- no leg edema Neurological- cranial nerves intact, no acute dysarthria or dysphagia Skin- no acute rash or purpura laboratory and microbiology Laboratory Tests 08/03/24 09:49 08/02/24 08:45 Test 08/02/24 08:45 Range/Units Serum Glucose 73 L 74-106 mg/dL Microbiology Date/Time Source Procedure Growth Status 07/22/24 15:49 Blood Blood Culture - Final NO GROWTH AFTER 5 DAYS OF INCUBATION. Complete 07/22/24 01:47 Nose MRSA Screen - Final Complete 07/21/24 12:40 Voided Urine Urine Culture - Final Complete 07/20/24 21:29 Sputum Gram Stain - Final Complete 07/20/24 21:29 Respiratory Culture - Final Escherichia coli Complete Problem List/Assessment/Plan Problem List/Assessment/Plan Assessment and plan Neurology Metabolic encephalopathy/uremic encephalopathy/hypoxic encephalopathy -status post extubation on 07/31/2024 Continue current management - avoid dehydration and nephrotoxic drugs Cardiovascular Septic shock Acute heart failure HFrEF, EF-30%. NSTEMI type 2 demand lead ischemia Acute pulmonary edema likely due to volume overload Pericardial effusion, recurrent -Status post EVAR to thoracic / abdominal aorta Anasarca Suspected cardiac tamponade -H/O HTN, - HLD - Echo 2D on 07/22/2024 revealed LVEF 30%, moderately reduced, moderately dilated RV, hypokinetic, global pericardial effusion, in range of 1-1.5 cm. Dilated all cardiac chambers and are hypokinetic -continue current management Respiratory Acute hypoxic respiratory failure due to acute pulmonary edema/volume overload Bilateral pleural effusion -suspected acute exertional COPD Suspected pneumonia Gram-positive versus Gram-negative B/L Lower lung consolidation Pleural effusion - apneic episode during CPAP trial on 07/27/2024 - Blood culture on 07/20/2024 revealed E coli. Respiratory culture on 07/20/24 also grew E coli. -repeat blood culture on 07/22/2024 preliminary report no growth MRSA screening positive -levofloxacin 250 mg p.o. daily -mupirocin as prescribed Gastroenterology -suspected viral hepatitis/cholangitis -ascites -transaminitis -continue pantoprazole 40 mg po qd Genitourinary/renal -ESRD on HD -fluid overload likely due to ESRD - avoid dehydration and nephrotoxic drugs Hemato oncology --anemia of chronic disease -thrombocytopenia - resolved -leukocytosis -monitor CBC Infectious -septic shock -leukocytosis -pneumonia Gram-positive versus Gram-negative - Blood culture on 07/20/2024 revealed E coli. Respiratory culture on 07/20/24 also grew E coli. -blood culture on 0 07/22/24 preliminary reports no growth MRSA screening positive -urine culture negative -continue levofloxacin 250 mg p.o. daily -mupirocin as prescribed Endocrine/metabolic disorder Metabolic acidosis Lactic acidosis Dilutional hyponatremia Diabetes mellitus type 2 -hyperlipidemia -malnutrition Skin/alimentary Patient was extubated on 07/31/2024 Goals of care/ Code status ; discussed >15 minutes PUD prophylaxis: Pantoprazole DVT prophylaxis: Heparin Plan discussed with Dr. Camacho, nursing staff, Roland (Brother) Total time spent on patient evaluation, chart review, assessment and plan, total time spent 27 Minutes My Orders My Orders Orders - DAGMAR DEL CASTILLO RESIDENT Procedure Category Date Status Time Comprehensive LAB 08/03/24 Logged Metabolic Panel 04:00 Magnesium LAB 08/03/24 Logged 04:00 * Pantograph Ii Engraver CONS 08/03/24 Transmitted Consult Abg W/ Co-Ox RT 08/03/24 Logged 11:50 Dietary Evaluation Review Comments: 1.Consider EN regime nepro@20ml/hr to provide 850 Kcal 39g Protein 349ml Free Water to meet nutritional needs 2.Consider PN regime NPO > 5 days Expected Outcomes/Goals: >75% nutritional intake, labs WNL DAGMAR DEL CASTILLO RESIDENT Aug 03, 2024 12:04
[2024-08-03 12:27] LABS: Base Excess 5.7 mmol/L (-2.0-3.0)
--- NOTE | 2024-08-03 14:36 | DVHDSRES ---
Discharge Summary Date of Admission Resident Creating Document: SHAQ TOVAR DT Jul 20, 2024 at 23:35 Date of Discharge: Aug 03, 2024 Admitting Diagnosis acute hypoxic respiratory failure Labs/Diagnostic Data: Laboratory Results Test 08/03/24 12:18 08/03/24 11:47 08/03/24 09:49 08/02/24 08:45 Blood Gas Specimen Type Arterial Blood Gas Sample Site Right brachial Blood Gas Patient Temperature 37.0 Arterial Blood Date Drawn [id number] Arterial Blood pH 7.484 (7.350-7.450) Arterial Blood Partial Pressure CO2 40.2 mmHg (32.0-45.0) Arterial Blood Partial Pressure O2 39.0 mmHg (83.0-108.0) Arterial Blood HCO3 29.5 mmol/L (21.0-28.0) Arterial Blood Oxygen Saturation 75.1 % (94.0-98.0) Arterial Blood Base Excess 5.7 mmol/L (-2.0-3.0) Arterial Blood Oxyhemoglobin 74.3 % (94.0-98.0) Arterial Blood Carboxyhemoglobin 0.7 % (0.5-1.5) Arterial Blood Methemoglobin 0.3 % (0.0-1.5) Lan Test N/a Blood Gas Total Hemoglobin 11.60 g/dL (12.0-16.0) Blood Gas Modality Room air FiO2 % 21.0 Blood Gas Critical Value Read Back Yes Blood Gas Notified Whom ke Mittal Blood Gas Notified Time [id number] Blood Gas Notified By tash Maxwell rt. POC Glucose 89 mg/dl (70-106) White Blood Count 5.2 10^3/uL (4.4-10.8) Red Blood Count 3.34 10^6/uL (4.0-5.20) Hemoglobin 10.8 g/dL (12.2-16.2) Hematocrit 33.1 % (36.0-46.0) Mean Corpuscular Volume 99.3 fL (80.0-100.0) Mean Corpuscular Hemoglobin 32.5 pg (28.0-32.0) Mean Corpuscular Hemoglobin Concent 32.7 g/dL (32.0-36.0) Red Cell Distribution Width 16.5 % (11.8-14.3) Platelet Count 232 10^3/uL (140-450) Mean Platelet Volume 9.8 fL (6.9-10.8) Neutrophils (%) (Auto) 65.4 % (37.0-80.0) Lymphocytes (%) (Auto) 16.5 % (10.0-50.0) Monocytes (%) (Auto) 15.6 % (0.0-12.0) Eosinophils (%) (Auto) 1.0 % (0.0-7.0) Basophils (%) (Auto) 1.5 % (0.0-2.0) Neutrophils # (Auto) 3.4 10 ^3/uL (1.6-8.6) Lymphocytes # (Auto) 0.9 10 ^3/uL (0.4-5.4) Monocytes # (Auto) 0.8 10 ^3/uL (0-1.3) Eosinophils # (Auto) 0.1 10 ^3/uL (0-0.8) Basophils # (Auto) 0.1 10 ^3/uL (0-0.2) Nucleated Red Blood Cells 0.1 % Sodium Level 142 mmol/L (136-145) Potassium Level 4.2 mmol/L (3.5-5.1) Chloride Level 99 mmol/L (98-107) Carbon Dioxide Level 31 mmol/L (20-31) Anion Gap 12 (5-15) Blood Urea Nitrogen 15 mg/dL (9-23) Creatinine 2.87 mg/dL (0.550-1.02) Glomerular Filtration Rate Calc 17 mL/min (>90) BUN/Creatinine Ratio 5.2 (10.0-20.0) Serum Glucose 73 mg/dL (74-106) Calcium Level 9.1 mg/dL (8.7-10.4) Test 08/01/24 03:00 07/31/24 07:58 07/31/24 03:00 07/30/24 07:04 Magnesium Level 2.3 mg/dL (1.6-2.6) Total Bilirubin 0.7 mg/dL (0.2-1.0) Aspartate Amino Transferase (AST) 15 U/L (13-40) Alanine Aminotransferase (ALT) 10 U/L (7-40) Alkaline Phosphatase 174 U/L (46-116) Total Protein 6.3 g/dL (5.7-8.2) Albumin 3.2 g/dL (3.2-4.8) Random Vancomycin Level 25.0 ug/mL (5-10) Blood Gas Spontaneous Rate 23 Blood Gas Spontaneous Tidal Volume 317 Blood Gas Pressure Support 8 Blood Gas PEEP or CPAP 5.0 Prothrombin Time 13.5 sec (9.3-11.8) Prothrombin Time INR 1.31 (0.9-1.15) Activated Partial Thromboplast Time 30.8 SEC (24.5-34.5) Blood Gas Set Respiration Rate 16.0 Blood Gas Tidal Volume 460.0 Specimen Drawn By Kip grocery store clerk Test 07/29/24 03:20 07/26/24 15:07 07/23/24 03:16 07/22/24 04:34 Phosphorus Level 2.3 mg/dL (2.4-5.1) Blood Gas Inspiratory Pressure 22.0 Bl Gas Inspiratory/Expiratory Ratio 1:3.3 B-Type Natriuretic Peptide 2765.30 pg/mL (0-100) Differential Total Cells Counted 100.0 (100) Neutrophils % (Manual) 34 (37.0-80.0) Band Neutrophils % (Manual) 59 Lymphocytes % (Manual) 4 (10.0-50.0) Monocytes % (Manual) 2 (0-12) Eosinophils % (Manual) 0 (0-7) Basophils % (Manual) 0 (0.0-2.0) Metamyelocytes % (manual) 1 Myelocytes % (Manual) 0 Promyelocytes % (Manual) 0 Blast Cells % (Manual) 0 Reactive Lymphocytes 0 Platelet Estimate Adequate Anisocytosis (manual) Slight Hepatitis B Surface Antigen Negative (Negative) Test 07/21/24 12:40 07/21/24 01:15 07/21/24 00:16 07/20/24 22:09 Urine Color Yellow (Yellow) Urine Clarity Turbid (Clear) Urine pH 7.0 (5.0-9.0) Urine Specific [place] 1.018 (1.001-1.035) Urine Protein 3+ (Negative) Urine Ketones Trace (Negative) Urine Blood 2+ /uL (Negative) Urine Nitrite Negative (Negative) Urine Bilirubin Negative (Negative) Urine Urobilinogen Normal mg/dL (Negative) Urine Leukocyte Esterase Negative /uL (Negative) Urine RBC 7 /hpf (0 - 4) Urine Microscopic WBC 51 /HPF (0-5) Urine Squamous Epithelial Cells Few /hpf (<5) Urine Bacteria Few /hpf (None Seen) Urine Mucus Few (None Seen) Urine Glucose 3+ mg/dL (Normal) Urine Opiates Screen Neg (NEGATIVE) Urine Fentanyl Screen Neg (NEGATIVE) Urine Barbiturates Screen Neg (NEGATIVE) Urine Phencyclidine Screen Neg (NEGATIVE) Urine Amphetamines Screen Neg (NEGATIVE) Urine Benzodiazepines Screen Neg (NEGATIVE) Urine Cocaine Screen Neg (NEGATIVE) Urine Cannabinoids Screen Neg (NEGATIVE) Lactic Acid Level 2.0 mmol/L (0.4-2.0) Troponin I High Sensitivity 141 ng/L (</=34) Triglycerides Level 232 mg/dL (< 150) Cholesterol Level 167 mg/dL (< 200) LDL Cholesterol 75 mg/dL (< 100) HDL Cholesterol 27 mg/dL (40-59) Test 07/20/24 21:36 07/20/24 20:50 Influenza Type A Antigen Negative (Negative) Influenza Type B Antigen Negative (Negative) SARS-CoV-2 Antigen (Rapid) Negative (NEGATIVE) Hemoglobin A1c 7.1 % A1C (<5.7) Plasma/Serum Blood Alcohol < 3.0 mg/dL (<10) Other Laboratory Tests 08/03/24 09:49 08/02/24 08:45 Brief Hx & Hospital Course: Patient is 69 years old female with past medical history of hypertension, dyslipidemia, diabetes mellitus type 2, COPD on home oxygen [place] O2, ESRD on hemodialysis 3 times per week Tuesday//Tuesday, history of CAD, MT, chronic anemia, history of AV fistula in the left arm, EVAR to thoracic or abdominal aorta(evidence in CT scan) was brought to the hospital due to cough and nausea and vomiting. Patient had productive cough with yellow phlegm, nausea and vomiting and diarrhea and abdominal pain before patient came in. As per brother done patient's alcoholic, drinks alcohol half to 1 L every day for beers every day, drinks Tequila. On arrival patient had altered level of consciousness, became unresponsive, [place] coma score was 3/15, required emergency endotracheal intubation. Patient was previously admitted at [facility] in June 08, 2024, April 22, 2024, March 29 2017, December 19, 2016. Most recent hospitalization was due to malfunction of the AV fistula along with dizziness, at the time patient was on home oxygen 4 liter/minute. On her previous admission Dr. Massey, interventional radiologist attempted to fix non functioning AV fistula 06/11/2024 but patient refused repeatedly and requested to be discharged home. Was also admitted on 22/04/24 due to intractable nausea and vomiting and abdominal pain. Patient was found to have right basilic DVT, possible ischemic colitis likely due to fluid overload.. Echo on 04/26/2024 revealed LVEF 50%, moderate pericardial effusion.Moderate to severely elevated right ventricular systolic pressure at 57 mm of mercury. Moderate mitral valve and tricuspid valve regurgitation. Discharged with a diagnosis of pulmonary edema, suspected cardiogenic shock. Admission initial lab workup revealed leukocytosis with WBC 11.6, increased anion gap 18, elevated creatinine 7.58, BUN 78, Troponin I 170> 146> 141, BNP > 5000 HGB A1c 7.1, lactic acidosis with lactic acid 4.3 elevated serum bilirubin 1.2, elevated AST 59 ALT 20, elevated> alkaline phosphatase 218, triglyceride 232, cholesterol 167, LDL 75, HDL 27. UDS negative. Influenza type a and B, SARS COVID negative. Urinalysis negative for UTI. Initial ABG revealed ABG 7.31, pCO2 43.6, PO2 83.2, bicarbonate 21.8. Initial CT Head scan revealed no acute intracranial abnormality. CXR revealed- Moderate cardiomegaly. Prominent interstitial markings bilaterally. Small bilateral pleural effusions with superimposed infection not excluded no pneumothorax. CT chest, Abdomen and Pelvis revealed-Findings consistent with fluid overload state which include cardiomegaly, pericardial effusion, pleural effusions, ascites, and anasarca. Scattered consolidations throughout the bilateral lungs. Moderate periportal edema which has a broad differential that includes viral hepatitis or acute cholangitis x-ray on 07/20/2024 revealed-Patient has a pericardial effusion which could cause tamponade I recommend cardiac echo. There is a large consolidate involving the right lower lobe and there is pulmonary vascular congestion as well. Carotid Doppler on 07/21/2024 revealed- Very limited examination. Unable to evaluate the left carotid system and unable to visualize the right common carotid artery. The degree of carotid stenosis can not be determined on this examination. Findings in the visualized portions of the right carotid system as described above. Single organ ultrasound on 07/21/2024 revealed-No gallstones or sludge.Nonspecific thickened/ edematous appearance to the gallbladder wall. May be related to 3rd spacing. Echo 2D on 07/22/2024 revealed LVEF 30%, moderately reduced, moderately dilated RV, hypokinetic, global pericardial effusion, in range of 1-1.5 cm. Dilated all cardiac chambers and are hypokinetic. Blood culture on 07/20/2024 revealed E coli. Respiratory culture on 0 07/20/24 also grew E coli. Urine culture no growth. MRSA screening positive. Repeat Blood culture on 07/22/24 shows no growth. Patient had several episode of dialysis during hospital course. Was extubated on 07/31/2024. Patient had physical therapy post extubation. Patient is being discharged home in hemodynamically stable condition. Patient was advised to follow up with the primary care physician in 1 week, patient was also advised to follow up with the coal trammer and farm product purchaser in 1-2 weeks. Patient's meds were sent to the pharmacy electronically. Patient was discharged home with home oxygen due to persistent hypoxia in room air. W spent clinical evaluation, chart review, discharge planning> 30 minutes Condition at Discharge: Stable Final Diagnosis/Problems List Metabolic encephalopathy/uremic encephalopathy/hypoxic encephalopathy Septic shock Acute heart failure HFrEF, EF-30%. -pneumonia Gram-positive versus Gram-negative NSTEMI type 2 demand lead ischemia Acute pulmonary edema likely due to volume overload Pericardial effusion, recurrent -Status post EVAR to thoracic / abdominal aorta Anasarca Suspected cardiac tamponade -H/O HTN, - HLD Acute hypoxic respiratory failure due to acute pulmonary edema/volume overload Bilateral pleural effusion -suspected acute exertional COPD Suspected pneumonia Gram-positive versus Gram-negative B/L Lower lung consolidation Pleural effusion - apneic episode during CPAP trial on 07/27/2024 -suspected viral hepatitis/cholangitis -ascites -transaminitis -ESRD on HD -fluid overload likely due to ESRD --anemia of chronic disease -thrombocytopenia - resolved -leukocytosis -septic shock -leukocytosis MRSA screening positive Metabolic acidosis Lactic acidosis Dilutional hyponatremia Diabetes mellitus type 2 -hyperlipidemia -malnutrition Discharge Disposition: Home Discharge Instruct/Medications Medications: levofloxacin 250 po qd for 5 days Carbidopa 6.25 mg p.o. q.12h Imdur 30 mg p.o. daily Hydralazine 10 mg p.o. q.8h Atorvastatin 20 mg p.o. q.h.s. Aspirin 81 mg po qd Pantoprazole 20 mg p.o. daily Discharge Statement: "Patient was advised to return to the ER or call 911 if any headaches, dizziness, shortness of breath, chest pain, abdominal pain, bleeding, fevers, or worsening of medical condition. Patient was counseled about treatment plan, medications, possible side effects, patientverbalized understanding. All questions were answered to the best of my ability. This discharge took greater then 30 minutes in planning, reviewing documentation, counseling the patient, and discussing with other team members." ASSESSMENT ASSESSMENT Assessment DAGMAR DEL CASTILLO RESIDENT Aug 03, 2024 14:35
[2024-08-03] MEDS ORDERED: LEVO500T91 PO (14:38)
--- NOTE | 2024-08-03 19:26 | DVHPN2 ---
Progress Note - Dictate Date Seen: Aug 03, 2024 Medical Necessity Reason Pt with a Central, PICC or Fol: Yes The following are medically ne: Central Line, Barron Catheter Reason for barron catheter: Strict I&O Subjective Patient was seen and evaluated in follow up. No acute events overnight. Patient remains stable on 2L NC. No new complaints. Received dialysis this morning. vital signs Vital Sign Date Time Temp Pulse Resp B/P (MAP) Pulse Ox O2 Delivery O2 Flow Rate FiO2 08/03/24 17:01 98.2 85 17 151/60 (90) 95 98.2 08/03/24 08:00 Nasal Cannula* 2 28 Total Intake and Output 08/02/24 08/02/24 08/03/24 15:00 23:00 07:00 Intake Total 400 ml 200 ml Balance 400 ml 200 ml medications Current Medications Medications Dose Ordered Sig/Camacho Route Start Time Stop Time Status Last Admin Dose Admin Diagnostic Test (Pha) 1 strip Q6HR 07/21/24 18:00 08/03/24 18:19 1 STRIP Insulin Human Regular Q6HR SC 07/21/24 18:00 08/03/24 18:16 3 UNITS Dextrose 50 ml UD PRN IV 07/21/24 15:00 07/21/24 19:04 50 ML Lorazepam 0.25 mg Q4HP PRN IV 07/27/24 11:15 07/27/24 12:08 0.25 MG Carvedilol 3.125 mg Q12HR PO 07/29/24 10:00 08/03/24 11:22 3.125 MG Albuterol 2.5 mg Q6HR NEB 07/31/24 12:00 08/03/24 18:34 2.5 MG Ipratropium [place] 0.5 mg Q6HR NEB 07/31/24 12:00 08/03/24 18:35 0.5 MG Hydralazine HCl 10 mg Q6HP PRN IV 07/31/24 13:30 07/31/24 15:43 10 MG Levofloxacin 250 mg Q48H PO 08/02/24 22:00 08/02/24 21:07 250 MG Megestrol Acetate 200 mg BID PO 08/02/24 11:00 08/03/24 11:31 200 MG Pantoprazole Sodium 40 mg DAILY@0600 PO 08/03/24 06:00 08/03/24 05:23 40 MG Heparin Sodium (Porcine) 5,000 units Q12HR SC 08/02/24 22:00 08/03/24 11:40 5,000 UNITS Lidocaine 1 patch DAILY TOP 08/03/24 10:00 08/03/24 11:23 1 PATCH objective Vitals and nursing notes reviewed. General appearance: In no acute distress. HEENT: Normocephalic, atraumatic. Chest: On SpO2 with 2L NC. No wheezes or rales. Heart: Regular rate; no murmur or gallop Abdomen: Soft, nontender, nondistended Musculoskeletal: No clubbing, no cyanosis, trace lower extremity edema Skin: Warm, moist. Neurological: Awake, following verbal commands. Able to move arms and legs. laboratory and microbiology Laboratory Tests 08/03/24 09:49 08/02/24 08:45 Test 08/02/24 08:45 Range/Units Serum Glucose 73 L 74-106 mg/dL Problem List Metabolic encephalopathy secondary to sepsis Acute respiratory failure Cardiorenal syndrome type 3 ESRD on hemodialysis Pericardial effusion Anasarca NSTEMI Transaminitis Normocytic anemia Diabetes - uncontrolled (hemoglobin A1c 7.1%) Hypertension Dyslipidemia Assessment/Plan Agree with current supportive medical care. DC planning in progress. [place] [facility] [place]- 08/03-UF 2.5L as tolerated. Will resume outpatient dialysis with [facility]. PT as recommended. PO Levaquin. Diet as tolerated. GI / DVT prophylaxis. Additional plan as per the hospital course. Dietary Evaluation Review Comments: 1.Consider EN regime nepro@20ml/hr to provide 850 Kcal 39g Protein 349ml Free Water to meet nutritional needs 2.Consider PN regime NPO > 5 days Expected Outcomes/Goals: >75% nutritional intake, labs WNL Plan discussed with: Patient, Other (RN) JOSE LUIS SMITH DO Aug 03, 2024 19:26
[2024-08-03] MEDS: hydrALAZINE HCL 10 MG TAB PO ONE (19:30)
[2024-08-03] MEDS ORDERED: HYDR-2792 PO (19:33)
[2024-08-03] MEDS ORDERED: ISO60SRT PO (19:33)
[2024-08-03] MEDS ORDERED: ATOR20TA50 PO (19:33)
[2024-08-03] MEDS ORDERED: PANT40T PO (19:33)
[2024-08-03] MEDS ORDERED: ASPI1TAB19 PO (19:39)
--- NOTE | 2024-08-03 21:36 | DVHPN2 ---
Progress Note - Dictate Date Seen: Aug 03, 2024 Medical Necessity Reason Pt with a Central, PICC or Fol: Yes The following are medically ne: Central Line, Barron Catheter Reason for barron catheter: Strict I&O Subjective Patient was seen and evaluated in follow up. Patient is on 2 LPM NC. Patient is complaining of left foot pain. Patient is refusing SNF placement as she wishes to return home after discharge. Telemetry reviewed. vital signs Vital Sign Date Time Temp Pulse Resp B/P (MAP) Pulse Ox O2 Delivery O2 Flow Rate FiO2 08/03/24 12:22 85 152/69 08/03/24 09:00 98.2 17 100 98.2 08/03/24 08:00 Nasal Cannula* 2 28 Total Intake and Output 08/02/24 08/02/24 08/03/24 15:00 23:00 07:00 Intake Total 400 ml 200 ml Balance 400 ml 200 ml medications Current Medications Medications Dose Ordered Sig/Camacho Route Start Time Stop Time Status Last Admin Dose Admin Diagnostic Test (Pha) 1 strip Q6HR 07/21/24 18:00 08/03/24 11:48 1 STRIP Insulin Human Regular Q6HR SC 07/21/24 18:00 08/03/24 05:52 2 UNITS Dextrose 50 ml UD PRN IV 07/21/24 15:00 07/21/24 19:04 50 ML Lorazepam 0.25 mg Q4HP PRN IV 07/27/24 11:15 07/27/24 12:08 0.25 MG Carvedilol 3.125 mg Q12HR PO 07/29/24 10:00 08/03/24 11:22 3.125 MG Albuterol 2.5 mg Q6HR NEB 07/31/24 12:00 08/03/24 06:38 2.5 MG Ipratropium [place] 0.5 mg Q6HR NEB 07/31/24 12:00 08/03/24 06:38 0.5 MG Hydralazine HCl 10 mg Q6HP PRN IV 07/31/24 13:30 07/31/24 15:43 10 MG Levofloxacin 250 mg Q48H PO 08/02/24 22:00 08/02/24 21:07 250 MG Megestrol Acetate 200 mg BID PO 08/02/24 11:00 08/03/24 11:31 200 MG Pantoprazole Sodium 40 mg DAILY@0600 PO 08/03/24 06:00 08/03/24 05:23 40 MG Heparin Sodium (Porcine) 5,000 units Q12HR SC 08/02/24 22:00 08/03/24 11:40 5,000 UNITS Lidocaine 1 patch DAILY TOP 08/03/24 10:00 08/03/24 11:23 1 PATCH objective GENERAL: Ill appearing, intubated on ventilator. LUNGS: Decreased breath sounds. CARDIOVASCULAR: Heart sounds are good. ABDOMEN: Soft. EXT: BLE edema. laboratory and microbiology Laboratory Tests 08/03/24 09:49 08/02/24 08:45 Test 08/02/24 08:45 Range/Units Serum Glucose 73 L 74-106 mg/dL Problem List NSTEMI likely type 2 MT. Acute on chronic HFpEF. Acute hypoxic respiratory failure. Pericardial effusion, recurrent. Sepsis, suspected pneumonia. HTN. HLD. 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 ESRD on HD. HLD. Gram-negative bacteremia. Diabetes mellitus type 2. Assessment/Plan Continued all current supportive medical care. Coreg. IV antibiotics as ordered. IV Hydralazine for SBP >160. GI prophylactics. Additional plan as per the hospital course. Dietary Evaluation Review Comments: 1.Consider EN regime nepro@20ml/hr to provide 850 Kcal 39g Protein 349ml Free Water to meet nutritional needs 2.Consider PN regime NPO > 5 days Expected Outcomes/Goals: >75% nutritional intake, labs WNL Plan discussed with: Patient DEWEY SMITH MD Aug 03, 2024 13:35
[2024-08-03] MEDS: ISOSORBIDE MONONITRATE ER 60 MG TAB PO ONE (22:14)
[2024-08-03] MEDS: ACETAMINOPHEN 325 MG TAB PO PRN (22:14)
[2024-08-03] MEDS: hydrALAZINE HCL 10 MG TAB PO SCH (22:15)
[2024-08-03] MEDS: ATORVASTATIN 20 MG TAB PO SCH (22:17)
[2024-08-04] VITALS (12 sets, daily range): BP systolic 118–159; BP diastolic 43–64; PULSE 75–83; RESP 16–19; TEMP 97.3–98.7; O2SAT 97–100
[2024-08-04] MEDS: ISOSORBIDE MONONITRATE ER 60 MG TAB PO SCH (10:32)
--- NOTE | 2024-08-04 12:13 | DVHPN2 ---
Reviewed: Care Plan, H&P, Labs, Medications, Previous Orders, Radiology Changes from previous H/P or p: No Changes Objective Vitals Vital Signs Date Time Temp Pulse Resp B/P (MAP) Pulse Ox O2 Delivery O2 Flow Rate FiO2 08/04/24 11:22 82 16 100 08/04/24 11:17 Nasal Cannula 2.0 08/04/24 11:17 28 08/04/24 10:33 141/61 08/04/24 09:00 98.1 98.1 Intake/Output Intake and Output 08/04/24 06:59 Intake Total 660 ml Balance 660 ml Intake Oral 660 ml # Voids 1 Medications Current Medications Medications Dose Ordered Sig/Camacho Route Start Time Stop Time Status Last Admin Dose Admin Diagnostic Test (Pha) 1 strip Q6HR 07/21/24 18:00 08/04/24 05:20 1 STRIP Insulin Human Regular Q6HR SC 07/21/24 18:00 08/03/24 18:16 3 UNITS Dextrose 50 ml UD PRN IV 07/21/24 15:00 07/21/24 19:04 50 ML Lorazepam 0.25 mg Q4HP PRN IV 07/27/24 11:15 07/27/24 12:08 0.25 MG Carvedilol 3.125 mg Q12HR PO 07/29/24 10:00 08/04/24 10:33 3.125 MG Albuterol 2.5 mg Q6HR NEB 07/31/24 12:00 08/04/24 11:17 2.5 MG Ipratropium [place] 0.5 mg Q6HR NEB 07/31/24 12:00 08/04/24 11:17 0.5 MG Hydralazine HCl 10 mg Q6HP PRN IV 07/31/24 13:30 07/31/24 15:43 10 MG Levofloxacin 250 mg Q48H PO 08/02/24 22:00 08/02/24 21:07 250 MG Megestrol Acetate 200 mg BID PO 08/02/24 11:00 08/04/24 10:31 200 MG Pantoprazole Sodium 40 mg DAILY@0600 PO 08/03/24 06:00 08/04/24 05:20 40 MG Heparin Sodium (Porcine) 5,000 units Q12HR SC 08/02/24 22:00 08/04/24 10:50 5,000 UNITS Lidocaine 1 patch DAILY TOP 08/03/24 10:00 08/04/24 10:30 1 PATCH Isosorbide Mononitrate 30 mg DAILY PO 08/04/24 10:00 08/04/24 10:32 30 MG Hydralazine HCl 10 mg Q8HR PO 08/03/24 22:00 08/03/24 22:15 10 MG Atorvastatin Calcium 10 mg HS PO 08/03/24 22:00 08/03/24 22:17 10 MG Acetaminophen 650 mg Q6HP PRN PO 08/03/24 21:45 08/03/24 22:14 650 MG Laboratory Results Laboratory Tests 08/02/24 08:45 08/03/24 09:49 Urinalysis Test 07/21/24 12:40 Urine Color Yellow (Yellow) Urine Clarity Turbid (Clear) H Urine pH 7.0 (5.0-9.0) Urine Specific [place] 1.018 (1.001-1.035) Urine Protein 3+ (Negative) H Urine Ketones Trace (Negative) Urine Blood 2+ /uL (Negative) H Urine Nitrite Negative (Negative) Urine Bilirubin Negative (Negative) Urine Urobilinogen Normal mg/dL (Negative) Urine Leukocyte Esterase Negative /uL (Negative) Urine RBC 7 /hpf (0 - 4) Urine Microscopic WBC 51 /HPF (0-5) H Urine Squamous Epithelial Cells Few /hpf (<5) Urine Bacteria Few /hpf (None Seen) H Urine Mucus Few (None Seen) Urine Glucose 3+ mg/dL (Normal) H Blood Gas Results Test 08/03/24 12:18 Arterial Blood pH 7.484 (7.350-7.450) FiO2 % 21.0 Microbiology Microbiology Date/Time Source Procedure Growth Status 07/22/24 15:49 Blood Blood Culture - Final NO GROWTH AFTER 5 DAYS OF INCUBATION. Complete 07/22/24 01:47 Nose MRSA Screen - Final Complete 07/21/24 12:40 Voided Urine Urine Culture - Final Complete 07/20/24 21:29 Sputum Gram Stain - Final Complete 07/20/24 21:29 Respiratory Culture - Final Escherichia coli Complete Labs and/or images reviewed: Labs reviewed by me, Image(s) reviewed by me Assessment/Plan Assessment/Plan Covering for resident physician Dr. Nicholson Patient was discharged home on 07/14/2024 Social service working on arrangement for home health Metabolic encephalopathy/uremic encephalopathy/hypoxic encephalopathy Septic shock Acute heart failure HFrEF, EF-30%. -pneumonia Gram-positive versus Gram-negative NSTEMI type 2 demand lead ischemia Acute pulmonary edema likely due to volume overload Pericardial effusion, recurrent -Status post EVAR to thoracic / abdominal aorta Anasarca Suspected cardiac tamponade -H/O HTN, - HLD Acute hypoxic respiratory failure due to acute pulmonary edema/volume overload Bilateral pleural effusion -suspected acute exertional COPD Suspected pneumonia Gram-positive versus Gram-negative B/L Lower lung consolidation Pleural effusion - apneic episode during CPAP trial on 07/27/2024 -suspected viral hepatitis/cholangitis -ascites -transaminitis -ESRD on HD -fluid overload likely due to ESRD --anemia of chronic disease -thrombocytopenia - resolved -leukocytosis -septic shock -leukocytosis MRSA screening positive Metabolic acidosis Lactic acidosis Dilutional hyponatremia Diabetes mellitus type 2 -hyperlipidemia -malnutrition Plan discussed with: Patient Date of Service: Aug 04, 2024 Billing Provider: PATRIA GRAYSON MD Common Visit Codes: [id number] INP/OBS CARE(HIGH) PATRIA GRAYSON MD Aug 04, 2024 12:13
--- NOTE | 2024-08-04 20:23 | DVHPN2 ---
Progress Note - Dictate Date Seen: Aug 04, 2024 Medical Necessity Reason Pt with a Central, PICC or Fol: Yes The following are medically ne: Central Line, Barron Catheter Reason for barron catheter: Strict I&O Subjective Patient was seen and evaluated in follow up. No acute events overnight. Patient remains stable on 2L NC. No complaints. Pending arrangements [place] [facility] [place]. vital signs Vital Sign Date Time Temp Pulse Resp B/P (MAP) Pulse Ox O2 Delivery O2 Flow Rate FiO2 08/04/24 18:43 99 Nasal Cannula 2.0 08/04/24 18:43 28 08/04/24 18:43 76 18 08/04/24 17:00 98.5 120/43 (68) 98.5 Total Intake and Output 08/03/24 08/03/24 08/04/24 15:00 23:00 07:00 Intake Total 360 ml 300 ml Balance 360 ml 300 ml medications Current Medications Medications Dose Ordered Sig/Camacho Route Start Time Stop Time Status Last Admin Dose Admin Diagnostic Test (Pha) 1 strip Q6HR 07/21/24 18:00 08/04/24 17:40 1 STRIP Insulin Human Regular Q6HR SC 07/21/24 18:00 08/04/24 12:31 8 UNITS Dextrose 50 ml UD PRN IV 07/21/24 15:00 07/21/24 19:04 50 ML Lorazepam 0.25 mg Q4HP PRN IV 07/27/24 11:15 07/27/24 12:08 0.25 MG Carvedilol 3.125 mg Q12HR PO 07/29/24 10:00 08/04/24 10:33 3.125 MG Albuterol 2.5 mg Q6HR NEB 07/31/24 12:00 08/04/24 11:17 2.5 MG Ipratropium [place] 0.5 mg Q6HR NEB 07/31/24 12:00 08/04/24 11:17 0.5 MG Hydralazine HCl 10 mg Q6HP PRN IV 07/31/24 13:30 07/31/24 15:43 10 MG Levofloxacin 250 mg Q48H PO 08/02/24 22:00 08/02/24 21:07 250 MG Megestrol Acetate 200 mg BID PO 08/02/24 11:00 08/04/24 10:31 200 MG Pantoprazole Sodium 40 mg DAILY@0600 PO 08/03/24 06:00 08/04/24 05:20 40 MG Heparin Sodium (Porcine) 5,000 units Q12HR SC 08/02/24 22:00 08/04/24 10:50 5,000 UNITS Lidocaine 1 patch DAILY TOP 08/03/24 10:00 08/04/24 10:30 1 PATCH Isosorbide Mononitrate 30 mg DAILY PO 08/04/24 10:00 08/04/24 10:32 30 MG Hydralazine HCl 10 mg Q8HR PO 08/03/24 22:00 08/03/24 22:15 10 MG Atorvastatin Calcium 10 mg HS PO 08/03/24 22:00 08/03/24 22:17 10 MG Acetaminophen 650 mg Q6HP PRN PO 08/03/24 21:45 08/03/24 22:14 650 MG objective Vitals and nursing notes reviewed. General appearance: In no acute distress. HEENT: Normocephalic, atraumatic. Chest: On SpO2 with 2L NC. No wheezes or rales. Heart: Regular rate; no murmur or gallop Abdomen: Soft, nontender, nondistended Musculoskeletal: No clubbing, no cyanosis, trace lower extremity edema Skin: Warm, moist. Neurological: Awake, following verbal commands. Able to move arms and legs. laboratory and microbiology Laboratory Tests 08/03/24 09:49 08/02/24 08:45 Test 08/02/24 08:45 Range/Units Serum Glucose 73 L 74-106 mg/dL Problem List Metabolic encephalopathy secondary to sepsis Acute respiratory failure Cardiorenal syndrome type 3 ESRD on hemodialysis Pericardial effusion Anasarca NSTEMI Transaminitis Normocytic anemia Diabetes - uncontrolled (hemoglobin A1c 7.1%) Hypertension Dyslipidemia Assessment/Plan Agree with current supportive medical care. DC planning in progress for home with HH and DME. Next dialysis 08/06 if still here. PT as recommended. PO Levaquin. Diet as tolerated. GI / DVT prophylaxis. Additional plan as per the hospital course. Dietary Evaluation Review Comments: 1.Consider EN regime nepro@20ml/hr to provide 850 Kcal 39g Protein 349ml Free Water to meet nutritional needs 2.Consider PN regime NPO > 5 days Expected Outcomes/Goals: >75% nutritional intake, labs WNL Plan discussed with: Patient, Other (RN) JOSE LUIS SMITH DO Aug 04, 2024 20:23
[2024-08-05] VITALS (12 sets, daily range): BP systolic 104–183; BP diastolic 50–84; PULSE 73–83; RESP 16–20; TEMP 98–98.3; O2SAT 96–100
--- NOTE | 2024-08-05 00:11 | DVHPN2 ---
Progress Note - Dictate Date Seen: Aug 04, 2024 Medical Necessity Reason Pt with a Central, PICC or Fol: Yes The following are medically ne: Central Line, Barron Catheter Reason for barron catheter: Strict I&O Subjective Patient was seen and evaluated in follow up. Patient is on 2 LPM NC. Patient is complaining of left foot discomfort. Patient awaiting home O2 to be delivered to bedside. BS are in the 150's. Telemetry reviewed. vital signs Vital Sign Date Time Temp Pulse Resp B/P (MAP) Pulse Ox O2 Delivery O2 Flow Rate FiO2 08/04/24 11:22 82 16 100 08/04/24 11:17 Nasal Cannula 2.0 08/04/24 11:17 28 08/04/24 10:33 141/61 08/04/24 09:00 98.1 98.1 Total Intake and Output 08/03/24 08/03/24 08/04/24 15:00 23:00 07:00 Intake Total 360 ml 300 ml Balance 360 ml 300 ml medications Current Medications Medications Dose Ordered Sig/Camacho Route Start Time Stop Time Status Last Admin Dose Admin Diagnostic Test (Pha) 1 strip Q6HR 07/21/24 18:00 08/04/24 12:27 1 STRIP Insulin Human Regular Q6HR SC 07/21/24 18:00 08/04/24 12:31 8 UNITS Dextrose 50 ml UD PRN IV 07/21/24 15:00 07/21/24 19:04 50 ML Lorazepam 0.25 mg Q4HP PRN IV 07/27/24 11:15 07/27/24 12:08 0.25 MG Carvedilol 3.125 mg Q12HR PO 07/29/24 10:00 08/04/24 10:33 3.125 MG Albuterol 2.5 mg Q6HR NEB 07/31/24 12:00 08/04/24 11:17 2.5 MG Ipratropium [place] 0.5 mg Q6HR NEB 07/31/24 12:00 08/04/24 11:17 0.5 MG Hydralazine HCl 10 mg Q6HP PRN IV 07/31/24 13:30 07/31/24 15:43 10 MG Levofloxacin 250 mg Q48H PO 08/02/24 22:00 08/02/24 21:07 250 MG Megestrol Acetate 200 mg BID PO 08/02/24 11:00 08/04/24 10:31 200 MG Pantoprazole Sodium 40 mg DAILY@0600 PO 08/03/24 06:00 08/04/24 05:20 40 MG Heparin Sodium (Porcine) 5,000 units Q12HR SC 08/02/24 22:00 08/04/24 10:50 5,000 UNITS Lidocaine 1 patch DAILY TOP 08/03/24 10:00 08/04/24 10:30 1 PATCH Isosorbide Mononitrate 30 mg DAILY PO 08/04/24 10:00 08/04/24 10:32 30 MG Hydralazine HCl 10 mg Q8HR PO 08/03/24 22:00 08/03/24 22:15 10 MG Atorvastatin Calcium 10 mg HS PO 08/03/24 22:00 08/03/24 22:17 10 MG Acetaminophen 650 mg Q6HP PRN PO 08/03/24 21:45 08/03/24 22:14 650 MG objective GENERAL: Ill appearing, intubated on ventilator. LUNGS: Decreased breath sounds. CARDIOVASCULAR: Heart sounds are good. ABDOMEN: Soft. EXT: BLE edema. laboratory and microbiology Laboratory Tests 08/03/24 09:49 08/02/24 08:45 Test 08/02/24 08:45 Range/Units Serum Glucose 73 L 74-106 mg/dL Problem List NSTEMI likely type 2 [place]. Acute on chronic HFpEF. Acute hypoxic respiratory failure. Pericardial effusion, recurrent. Sepsis, suspected pneumonia. HTN. HLD. 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 ESRD on HD. HLD. Gram-negative bacteremia. Diabetes mellitus type 2. Assessment/Plan Continued all current supportive medical care. Coreg. IV antibiotics as ordered. IV Hydralazine for SBP >160. GI prophylactics. Additional plan as per the hospital course. Dietary Evaluation Review Comments: 1.Consider EN regime nepro@20ml/hr to provide 850 Kcal 39g Protein 349ml Free Water to meet nutritional needs 2.Consider PN regime NPO > 5 days Expected Outcomes/Goals: >75% nutritional intake, labs WNL Plan discussed with: Patient DEWEY SMITH MD Aug 04, 2024 12:49
--- NOTE | 2024-08-05 09:21 | DVHPN2 ---
Reviewed: Care Plan, H&P, Labs, Medications, Previous Orders, Radiology Changes from previous H/P or p: No Changes Objective Vitals Vital Signs Date Time Temp Pulse Resp B/P (MAP) Pulse Ox O2 Delivery O2 Flow Rate FiO2 08/05/24 09:02 98.3 77 18 174/69 (104) 98 98.3 08/05/24 06:18 Nasal Cannula* 2 28 Intake/Output Intake and Output 08/05/24 07:00 Intake Total 760 ml Balance 760 ml Intake Oral 760 ml # Voids 1 # Bowel Movements 2 Medications Current Medications Medications Dose Ordered Sig/Camacho Route Start Time Stop Time Status Last Admin Dose Admin Diagnostic Test (Pha) 1 strip Q6HR 07/21/24 18:00 08/05/24 05:52 1 STRIP Insulin Human Regular Q6HR SC 07/21/24 18:00 08/05/24 00:15 4 UNITS Dextrose 50 ml UD PRN IV 07/21/24 15:00 07/21/24 19:04 50 ML Lorazepam 0.25 mg Q4HP PRN IV 07/27/24 11:15 07/27/24 12:08 0.25 MG Carvedilol 3.125 mg Q12HR PO 07/29/24 10:00 08/04/24 21:21 3.125 MG Albuterol 2.5 mg Q6HR NEB 07/31/24 12:00 08/05/24 06:18 2.5 MG Ipratropium [place] 0.5 mg Q6HR NEB 07/31/24 12:00 08/05/24 06:18 0.5 MG Hydralazine HCl 10 mg Q6HP PRN IV 07/31/24 13:30 07/31/24 15:43 10 MG Levofloxacin 250 mg Q48H PO 08/02/24 22:00 08/04/24 21:19 250 MG Megestrol Acetate 200 mg BID PO 08/02/24 11:00 08/04/24 10:31 200 MG Pantoprazole Sodium 40 mg DAILY@0600 PO 08/03/24 06:00 08/05/24 05:51 40 MG Heparin Sodium (Porcine) 5,000 units Q12HR SC 08/02/24 22:00 08/04/24 21:27 5,000 UNITS Lidocaine 1 patch DAILY TOP 08/03/24 10:00 08/04/24 10:30 1 PATCH Isosorbide Mononitrate 30 mg DAILY PO 08/04/24 10:00 08/04/24 10:32 30 MG Hydralazine HCl 10 mg Q8HR PO 08/03/24 22:00 08/04/24 21:21 10 MG Atorvastatin Calcium 10 mg HS PO 08/03/24 22:00 08/04/24 21:19 10 MG Acetaminophen 650 mg Q6HP PRN PO 08/03/24 21:45 08/05/24 02:04 650 MG Laboratory Results Laboratory Tests 08/02/24 08:45 08/03/24 09:49 Urinalysis Test 07/21/24 12:40 Urine Color Yellow (Yellow) Urine Clarity Turbid (Clear) H Urine pH 7.0 (5.0-9.0) Urine Specific [place] 1.018 (1.001-1.035) Urine Protein 3+ (Negative) H Urine Ketones Trace (Negative) Urine Blood 2+ /uL (Negative) H Urine Nitrite Negative (Negative) Urine Bilirubin Negative (Negative) Urine Urobilinogen Normal mg/dL (Negative) Urine Leukocyte Esterase Negative /uL (Negative) Urine RBC 7 /hpf (0 - 4) Urine Microscopic WBC 51 /HPF (0-5) H Urine Squamous Epithelial Cells Few /hpf (<5) Urine Bacteria Few /hpf (None Seen) H Urine Mucus Few (None Seen) Urine Glucose 3+ mg/dL (Normal) H Microbiology Microbiology Date/Time Source Procedure Growth Status 07/22/24 15:49 Blood Blood Culture - Final NO GROWTH AFTER 5 DAYS OF INCUBATION. Complete 07/22/24 01:47 Nose MRSA Screen - Final Complete 07/21/24 12:40 Voided Urine Urine Culture - Final Complete 07/20/24 21:29 Sputum Gram Stain - Final Complete 07/20/24 21:29 Respiratory Culture - Final Escherichia coli Complete Labs and/or images reviewed: Labs reviewed by me, Image(s) reviewed by me Assessment/Plan Assessment/Plan Covering for resident physician Dr. Nicholson Patient was discharged home on 08/03/2024 Social service working on arrangement for home health Metabolic encephalopathy/uremic encephalopathy/hypoxic encephalopathy Septic shock Acute heart failure HFrEF, EF-30%. -pneumonia Gram-positive versus Gram-negative NSTEMI type 2 demand lead ischemia Acute pulmonary edema likely due to volume overload Pericardial effusion, recurrent -Status post EVAR to thoracic / abdominal aorta Anasarca Suspected cardiac tamponade -H/O HTN, - HLD Acute hypoxic respiratory failure due to acute pulmonary edema/volume overload Bilateral pleural effusion -suspected acute exertional COPD Suspected pneumonia Gram-positive versus Gram-negative B/L Lower lung consolidation Pleural effusion - apneic episode during CPAP trial on 07/27/2024 -suspected viral hepatitis/cholangitis -ascites -transaminitis -ESRD on HD -fluid overload likely due to ESRD --anemia of chronic disease -thrombocytopenia - resolved -leukocytosis -septic shock -leukocytosis Time spent 40 minutes Plan discussed with: Patient Date of Service: Aug 05, 2024 Billing Provider: PATRIA GRAYSON MD Common Visit Codes: [id number] INP/OBS CARE(HIGH) PATRIA GRAYSON MD Aug 05, 2024 09:21
--- NOTE | 2024-08-05 17:44 | DVHPN2 ---
Progress Note - Dictate Date Seen: Aug 05, 2024 Medical Necessity Reason Pt with a Central, PICC or Fol: Yes The following are medically ne: Central Line, Barron Catheter Reason for barron catheter: Strict I&O Subjective Patient was seen and evaluated in follow up. No acute events overnight. Stable on 2L NC. No new complaints. SW is working on arrangements for home health and [email or web address] vital signs Vital Sign Date Time Temp Pulse Resp B/P (MAP) Pulse Ox O2 Delivery O2 Flow Rate FiO2 08/05/24 17:16 98.1 76 18 124/51 (75) 96 98.1 08/05/24 11:29 Nasal Cannula* 2 28 Total Intake and Output 08/04/24 08/04/24 08/05/24 15:00 23:00 07:00 Intake Total 260 ml 500 ml Balance 260 ml 500 ml medications Current Medications Medications Dose Ordered Sig/Camacho Route Start Time Stop Time Status Last Admin Dose Admin Diagnostic Test (Pha) 1 strip Q6HR 07/21/24 18:00 08/05/24 12:10 1 STRIP Insulin Human Regular Q6HR SC 07/21/24 18:00 08/05/24 12:12 6 UNITS Dextrose 50 ml UD PRN IV 07/21/24 15:00 07/21/24 19:04 50 ML Lorazepam 0.25 mg Q4HP PRN IV 07/27/24 11:15 07/27/24 12:08 0.25 MG Carvedilol 3.125 mg Q12HR PO 07/29/24 10:00 08/05/24 10:34 3.125 MG Albuterol 2.5 mg Q6HR NEB 07/31/24 12:00 08/05/24 06:18 2.5 MG Ipratropium [place] 0.5 mg Q6HR NEB 07/31/24 12:00 08/05/24 06:18 0.5 MG Hydralazine HCl 10 mg Q6HP PRN IV 07/31/24 13:30 07/31/24 15:43 10 MG Levofloxacin 250 mg Q48H PO 08/02/24 22:00 08/04/24 21:19 250 MG Megestrol Acetate 200 mg BID PO 08/02/24 11:00 08/05/24 10:32 200 MG Pantoprazole Sodium 40 mg DAILY@0600 PO 08/03/24 06:00 08/05/24 05:51 40 MG Heparin Sodium (Porcine) 5,000 units Q12HR SC 08/02/24 22:00 08/05/24 10:52 5,000 UNITS Lidocaine 1 patch DAILY TOP 08/03/24 10:00 08/05/24 10:31 1 PATCH Isosorbide Mononitrate 30 mg DAILY PO 08/04/24 10:00 08/05/24 10:32 30 MG Hydralazine HCl 10 mg Q8HR PO 08/03/24 22:00 08/05/24 14:00 10 MG Atorvastatin Calcium 10 mg HS PO 08/03/24 22:00 08/04/24 21:19 10 MG Acetaminophen 650 mg Q6HP PRN PO 08/03/24 21:45 08/05/24 02:04 650 MG objective Vitals and nursing notes reviewed. General appearance: In no acute distress. HEENT: Normocephalic, atraumatic. Chest: On SpO2 with 2L NC. No wheezes or rales. Normal effort. Heart: Regular rate; no murmur or gallop Abdomen: Soft, nontender, nondistended Musculoskeletal: No clubbing, no cyanosis, trace lower extremity edema Skin: Warm, moist. Neurological: No focal deficits. laboratory and microbiology Laboratory Tests 08/03/24 09:49 08/02/24 08:45 Test 08/02/24 08:45 Range/Units Serum Glucose 73 L 74-106 mg/dL Problem List Metabolic encephalopathy secondary to sepsis Acute respiratory failure Cardiorenal syndrome type 3 ESRD on hemodialysis Pericardial effusion Anasarca NSTEMI Transaminitis Normocytic anemia Diabetes - uncontrolled (hemoglobin A1c 7.1%) Hypertension Dyslipidemia Assessment/Plan Agree with current supportive medical care. DC planning in progress for home with HH and DME. Next dialysis 08/06- will be arranged with [facility] if discharged in AM. PT as recommended. PO Levaquin. Diet as tolerated. GI / DVT prophylaxis. Additional plan as per the hospital course. Dietary Evaluation Review Comments: 1.Consider EN regime nepro@20ml/hr to provide 850 Kcal 39g Protein 349ml Free Water to meet nutritional needs 2.Consider PN regime NPO > 5 days Expected Outcomes/Goals: >75% nutritional intake, labs WNL Plan discussed with: Patient, Other (RN) JOSE LUIS SMITH DO Aug 05, 2024 17:44
--- NOTE | 2024-08-05 23:52 | DVHPN2 ---
Progress Note - Dictate Date Seen: Aug 05, 2024 Medical Necessity Reason Pt with a Central, PICC or Fol: Yes The following are medically ne: Central Line, Barron Catheter Reason for barron catheter: Strict I&O Subjective Patient was seen and evaluated in follow up. Patient is on 2 LPM NC. Patient is complaining of left foot discomfort. Patient awaiting home O2 delivery. BS are in the 260's. Telemetry reviewed. vital signs Vital Sign Date Time Temp Pulse Resp B/P (MAP) Pulse Ox O2 Delivery O2 Flow Rate FiO2 08/05/24 13:00 98.1 78 18 183/84 (117) 100 98.1 08/05/24 11:29 Nasal Cannula* 2 28 Total Intake and Output 08/04/24 08/04/24 08/05/24 15:00 23:00 07:00 Intake Total 260 ml 500 ml Balance 260 ml 500 ml medications Current Medications Medications Dose Ordered Sig/Camacho Route Start Time Stop Time Status Last Admin Dose Admin Diagnostic Test (Pha) 1 strip Q6HR 07/21/24 18:00 08/05/24 12:10 1 STRIP Insulin Human Regular Q6HR SC 07/21/24 18:00 08/05/24 12:12 6 UNITS Dextrose 50 ml UD PRN IV 07/21/24 15:00 07/21/24 19:04 50 ML Lorazepam 0.25 mg Q4HP PRN IV 07/27/24 11:15 07/27/24 12:08 0.25 MG Carvedilol 3.125 mg Q12HR PO 07/29/24 10:00 08/05/24 10:34 3.125 MG Albuterol 2.5 mg Q6HR NEB 07/31/24 12:00 08/05/24 06:18 2.5 MG Ipratropium [place] 0.5 mg Q6HR NEB 07/31/24 12:00 08/05/24 06:18 0.5 MG Hydralazine HCl 10 mg Q6HP PRN IV 07/31/24 13:30 07/31/24 15:43 10 MG Levofloxacin 250 mg Q48H PO 08/02/24 22:00 08/04/24 21:19 250 MG Megestrol Acetate 200 mg BID PO 08/02/24 11:00 08/05/24 10:32 200 MG Pantoprazole Sodium 40 mg DAILY@0600 PO 08/03/24 06:00 08/05/24 05:51 40 MG Heparin Sodium (Porcine) 5,000 units Q12HR SC 08/02/24 22:00 08/05/24 10:52 5,000 UNITS Lidocaine 1 patch DAILY TOP 08/03/24 10:00 08/05/24 10:31 1 PATCH Isosorbide Mononitrate 30 mg DAILY PO 08/04/24 10:00 08/05/24 10:32 30 MG Hydralazine HCl 10 mg Q8HR PO 08/03/24 22:00 08/04/24 21:21 10 MG Atorvastatin Calcium 10 mg HS PO 08/03/24 22:00 08/04/24 21:19 10 MG Acetaminophen 650 mg Q6HP PRN PO 08/03/24 21:45 08/05/24 02:04 650 MG objective GENERAL: Ill appearing, intubated on ventilator. LUNGS: Decreased breath sounds. CARDIOVASCULAR: Heart sounds are good. ABDOMEN: Soft. EXT: BLE edema. laboratory and microbiology Laboratory Tests 08/03/24 09:49 08/02/24 08:45 Test 08/02/24 08:45 Range/Units Serum Glucose 73 L 74-106 mg/dL Problem List NSTEMI likely type 2 [place]. Acute on chronic HFpEF. Acute hypoxic respiratory failure. Pericardial effusion, recurrent. Sepsis, suspected pneumonia. HTN. HLD. 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 ESRD on HD. HLD. Gram-negative bacteremia. Diabetes mellitus type 2. Assessment/Plan Continued all current supportive medical care. Coreg. IV antibiotics as ordered. IV Hydralazine for SBP >160. GI prophylactics. Additional plan as per the hospital course. Dietary Evaluation Review Comments: 1.Consider EN regime nepro@20ml/hr to provide 850 Kcal 39g Protein 349ml Free Water to meet nutritional needs 2.Consider PN regime NPO > 5 days Expected Outcomes/Goals: >75% nutritional intake, labs WNL Plan discussed with: Patient DEWEY SMITH MD Aug 05, 2024 14:40
[2024-08-06] VITALS (12 sets, daily range): BP systolic 150–171; BP diastolic 53–81; PULSE 76–84; RESP 16–20; TEMP 37; O2SAT 96–100
--- NOTE | 2024-08-06 10:11 | DVHPNRES ---
Progress Note Date Seen: Aug 06, 2024 Resident Creating Document: DAGMAR DEL CASTILLO RESIDENT Medical Necessity Reason Pt with a Central, PICC or Fol: Yes The following are medically ne: Central Line, Barron Catheter Reason for barron catheter: Strict I&O Subjective Review of Systems Patient is 69 years old female with past medical history of hypertension, dyslipidemia, diabetes mellitus type 2, COPD on home oxygen [place] O2, ESRD on hemodialysis 3 times per week Tuesday//Tuesday, history of CAD, DC, chronic anemia, history of AV fistula in the left arm, EVAR to thoracic or abdominal aorta(evidence in CT scan) was brought to the hospital due to cough and nausea and vomiting. Patient had productive cough with yellow phlegm, nausea and vomiting and diarrhea and abdominal pain before patient came in. As per brother done patient's alcoholic, drinks alcohol half to 1 L every day for beers every day, drinks Tequila. On arrival patient had altered level of consciousness, became unresponsive, [place] coma score was 3/15, required emergency endotracheal intubation. Patient was previously admitted at [facility] in June 08, 2024, April 22, 2024, March 29 2017, December 19, 2016. Most recent hospitalization was due to malfunction of the AV fistula along with dizziness, at the time patient was on home oxygen 4 liter/minute. On her previous admission Dr. Massey, interventional radiologist attempted to fix non functioning AV fistula 06/11/2024 but patient refused repeatedly and requested to be discharged home. Was also admitted on 22/04/24 due to intractable nausea and vomiting and abdominal pain. Patient was found to have right basilic DVT, possible ischemic colitis likely due to fluid overload.. Echo on 04/26/2024 revealed LVEF 50%, moderate pericardial effusion.Moderate to severely elevated right ventricular systolic pressure at 57 mm of mercury. Moderate mitral valve and tricuspid valve regurgitation. Discharged with a diagnosis of pulmonary edema, suspected cardiogenic shock. Admission initial lab workup revealed leukocytosis with WBC 11.6, increased anion gap 18, elevated creatinine 7.58, BUN 78, Troponin I 170> 146> 141, BNP > 5000 HGB A1c 7.1, lactic acidosis with lactic acid 4.3 elevated serum bilirubin 1.2, elevated AST 59 ALT 20, elevated> alkaline phosphatase 218, triglyceride 232, cholesterol 167, LDL 75, HDL 27. UDS negative. Influenza type a and B, SARS COVID negative. Urinalysis negative for UTI. Initial ABG revealed ABG 7.31, pCO2 43.6, PO2 83.2, bicarbonate 21.8. Initial CT Head scan revealed no acute intracranial abnormality. CXR revealed- Moderate cardiomegaly. Prominent interstitial markings bilaterally. Small bilateral pleural effusions with superimposed infection not excluded no pneumothorax. CT chest, Abdomen and Pelvis revealed-Findings consistent with fluid overload state which include cardiomegaly, pericardial effusion, pleural effusions, ascites, and anasarca. Scattered consolidations throughout the bilateral lungs. Moderate periportal edema which has a broad differential that includes viral hepatitis or acute cholangitis x-ray on 07/20/2024 revealed-Patient has a pericardial effusion which could cause tamponade I recommend cardiac echo. There is a large consolidate involving the right lower lobe and there is pulmonary vascular congestion as well. Carotid Doppler on 07/21/2024 revealed- Very limited examination. Unable to evaluate the left carotid system and unable to visualize the right common carotid artery. The degree of carotid stenosis can not be determined on this examination. Findings in the visualized portions of the right carotid system as described above. Single organ ultrasound on 07/21/2024 revealed-No gallstones or sludge.Nonspecific thickened/ edematous appearance to the gallbladder wall. May be related to 3rd spacing. Echo 2D on 07/22/2024 revealed LVEF 30%, moderately reduced, moderately dilated RV, hypokinetic, global pericardial effusion, in range of 1-1.5 cm. Dilated all cardiac chambers and are hypokinetic. Blood culture on 07/20/2024 revealed E coli. Respiratory culture on 0 07/20/24 also grew E coli. Urine culture no growth. MRSA screening positive. Repeat Blood culture on 07/22/24 shows no growth. Patient was seen today for clinical evaluation. Labs than chart reviewed. Patient was discharged on 08/03/2024. Patient is waiting to go home after home oxygen saline as brought to the patient at hospital. WBC trending > 11.6> 8.2> 17.6> 13.1> 8.6> 5.5> 5.9> 7.1> 8.1> 8.3> 7.3> 6.7> 4.4> 4.3> 5.2> 4.9 hemoglobin 12.8> 11.8> 10.4> 10.2> 9.8> 10.2> 10.2>> 10.5 10.6> 11.2> 11.1> 10.9> 11.6> 10.2 Platelet 225> 165> 154> 104> 79> 54> 72> 83> 71> 121> 125 > 156> 169> 216> 245 Sodium 134>> 132> 132> 132> 136> 135> 139> 141> 140> 140> 142 potassium> 4.2> 3.7>> 4.1> 3.6> 3.8> 3.5> 3.7> 3.1> 3.1> 3.3> 4.1 >3.7> 3.6> 3.7 Anion gap> 18> 17> 16> 13> 16> 15> 11 Serum creatinine 7.58> 7.28> 8.21> 6.30> 6.75> 6.83> 4.99> 5.75> 3.97> 0.44> 2.45> 2.17> 3.34> 2.51> 3.73 BUN> 78> 74 >90> 64> 69> 44> 29> 12> 8> 21> 17> 25 Provider called and talked to patient's brother Roland [phone], discussed patient's current medical condition, plan of care and answered his questions. Objective vital signs Vital Sign Date Time Temp Pulse Resp B/P (MAP) Pulse Ox O2 Delivery O2 Flow Rate FiO2 08/06/24 09:00 98.4 78 20 164/73 (103) 98 98.4 08/06/24 06:51 Nasal Cannula 4.0 08/06/24 06:51 36 Total Intake and Output 08/05/24 08/05/24 08/06/24 15:00 23:00 07:00 Intake Total 1005 ml 105 ml Output Total 100 ml Balance 1005 ml 5 ml medications Current Medications Medications Dose Ordered Sig/Camacho Route Start Time Stop Time Status Last Admin Dose Admin Diagnostic Test (Pha) 1 strip Q6HR 07/21/24 18:00 08/06/24 05:46 1 STRIP Insulin Human Regular Q6HR SC 07/21/24 18:00 08/05/24 18:25 2 UNITS Dextrose 50 ml UD PRN IV 07/21/24 15:00 07/21/24 19:04 50 ML Lorazepam 0.25 mg Q4HP PRN IV 07/27/24 11:15 07/27/24 12:08 0.25 MG Carvedilol 3.125 mg Q12HR PO 07/29/24 10:00 08/05/24 21:46 3.125 MG Albuterol 2.5 mg Q6HR NEB 07/31/24 12:00 08/06/24 06:49 2.5 MG Ipratropium [place] 0.5 mg Q6HR NEB 07/31/24 12:00 08/06/24 06:49 0.5 MG Hydralazine HCl 10 mg Q6HP PRN IV 07/31/24 13:30 07/31/24 15:43 10 MG Levofloxacin 250 mg Q48H PO 08/02/24 22:00 08/04/24 21:19 250 MG Megestrol Acetate 200 mg BID PO 08/02/24 11:00 08/05/24 21:45 200 MG Pantoprazole Sodium 40 mg DAILY@0600 PO 08/03/24 06:00 08/06/24 05:48 40 MG Heparin Sodium (Porcine) 5,000 units Q12HR SC 08/02/24 22:00 08/05/24 21:48 5,000 UNITS Lidocaine 1 patch DAILY TOP 08/03/24 10:00 08/05/24 10:31 1 PATCH Isosorbide Mononitrate 30 mg DAILY PO 08/04/24 10:00 08/05/24 10:32 30 MG Hydralazine HCl 10 mg Q8HR PO 08/03/24 22:00 08/06/24 05:49 10 MG Atorvastatin Calcium 10 mg HS PO 08/03/24 22:00 08/05/24 21:47 10 MG Acetaminophen 650 mg Q6HP PRN PO 08/03/24 21:45 08/05/24 21:45 650 MG Examination General examination- awake and alert, HEENT- PEERLA, no acute nasal discharge Cardiovascular- S1-S2 audible, rate and rhythm regular, no murmur Respiratory- CTAB, no wheeze or rhonchi Gastrointestinal-nontender, bowel sound+. Nondistended Musculoskeletal-no acute joint swelling or tenderness or redness Lower extremity- no leg edema Neurological- cranial nerves intact, no acute dysarthria or dysphagia Skin- no acute rash or purpura laboratory and microbiology Laboratory Tests 08/03/24 09:49 08/02/24 08:45 Test 08/02/24 08:45 Range/Units Serum Glucose 73 L 74-106 mg/dL Microbiology Date/Time Source Procedure Growth Status 07/22/24 15:49 Blood Blood Culture - Final NO GROWTH AFTER 5 DAYS OF INCUBATION. Complete 07/22/24 01:47 Nose MRSA Screen - Final Complete 07/21/24 12:40 Voided Urine Urine Culture - Final Complete 07/20/24 21:29 Sputum Gram Stain - Final Complete 07/20/24 21:29 Respiratory Culture - Final Escherichia coli Complete Problem List/Assessment/Plan Problem List/Assessment/Plan Assessment and plan Neurology Metabolic encephalopathy/uremic encephalopathy/hypoxic encephalopathy -status post extubation on 07/31/2024 Continue current management - avoid dehydration and nephrotoxic drugs Cardiovascular Septic shock Acute heart failure HFrEF, EF-30%. NSTEMI type 2 demand lead ischemia Acute pulmonary edema likely due to volume overload Pericardial effusion, recurrent -Status post EVAR to thoracic / abdominal aorta Anasarca Suspected cardiac tamponade -H/O HTN, - HLD - Echo 2D on 07/22/2024 revealed LVEF 30%, moderately reduced, moderately dilated RV, hypokinetic, global pericardial effusion, in range of 1-1.5 cm. Dilated all cardiac chambers and are hypokinetic -continue current management -continue carvedilol 6.25 mg p.o. q.12 hours Atorvastatin 10 mg p.o. q.h.s. Isosorbide mononitrate 30 mg p.o. daily Hydralazine 10 mg p.o. q.8h Respiratory Acute hypoxic respiratory failure due to acute pulmonary edema/volume overload Bilateral pleural effusion -suspected acute exertional COPD Suspected pneumonia Gram-positive versus Gram-negative B/L Lower lung consolidation Pleural effusion - apneic episode during CPAP trial on 07/27/2024 - Blood culture on 07/20/2024 revealed E coli. Respiratory culture on 07/20/24 also grew E coli. -repeat blood culture on 07/22/2024 preliminary report no growth MRSA screening positive -levofloxacin 250 mg p.o. daily -mupirocin as prescribed Gastroenterology -suspected viral hepatitis/cholangitis -ascites -transaminitis -continue pantoprazole 40 mg po qd Genitourinary/renal -ESRD on HD -fluid overload likely due to ESRD - avoid dehydration and nephrotoxic drugs Hemato oncology --anemia of chronic disease -thrombocytopenia - resolved -leukocytosis -monitor CBC Infectious -septic shock -leukocytosis -pneumonia Gram-positive versus Gram-negative - Blood culture on 07/20/2024 revealed E coli. Respiratory culture on 07/20/24 also grew E coli. -blood culture on 0 07/22/24 preliminary reports no growth MRSA screening positive -urine culture negative -continue levofloxacin 250 mg p.o. daily -mupirocin as prescribed Endocrine/metabolic disorder Metabolic acidosis Lactic acidosis Dilutional hyponatremia Diabetes mellitus type 2 -hyperlipidemia -malnutrition Skin/alimentary Patient was extubated on 07/31/2024 Goals of care/ Code status ; discussed >15 minutes PUD prophylaxis: Pantoprazole DVT prophylaxis: Heparin Plan discussed with Dr. Camacho, nursing staff, Roland (Brother) Total time spent on patient evaluation, chart review, assessment and plan, total time spent 25 Minutes Plan discussed with: Other (RN, Brother ) Dietary Evaluation Review Comments: 1.Consider EN regime nepro@20ml/hr to provide 850 Kcal 39g Protein 349ml Free Water to meet nutritional needs 2.Consider PN regime NPO > 5 days Expected Outcomes/Goals: >75% nutritional intake, labs WNL DAGMAR DEL CASTILLO RESIDENT Aug 06, 2024 10:11
[2024-08-06] MEDS: amLODIPine BESYLATE 5 MG TAB PO ONE (10:15)
[2024-08-06 11:04] LABS: Basophils # (auto) 0.1 10 ^3/uL (0-0.2); Basophils % (auto) 1.4 % (0.0-2.0); Eosinophils # (auto) 0 10 ^3/uL (0-0.8); Eosinophils % (auto) 0.6 % (0.0-7.0); Hematocrit 31.3 % (36.0-46.0); Hemoglobin 10.2 g/dL (12.2-16.2); Lymphocytes # (auto) 0.9 10 ^3/uL (0.4-5.4); Lymphocytes % (auto) 19.1 % (10.0-50.0); Mean Corpuscular Hemoglobin 32.9 pg (28.0-32.0); Mean Corpuscular Hgb Conc. 32.8 g/dL (32.0-36.0); Mean Corpuscular Volume 100.5 fL (80.0-100.0); Monocytes # (auto) 0.7 10 ^3/uL (0-1.3); Monocytes % (auto) 13.2 % (0.0-12.0); Neutrophils # (auto) 3.2 10 ^3/uL (1.6-8.6); Neutrophils % (auto) 65.7 % (37.0-80.0); Platelet Count (auto) 245 10^3/uL (140-450); Red Blood Cells 3.11 10^6/uL (4.0-5.20); Red Cell Distribution Width 17.3 % (11.8-14.3); White Blood Cell 4.9 10^3/uL (4.4-10.8)
[2024-08-06] MEDS: SODIUM CHL 0.9% 1000 ML BAG XX ONE (11:15)
--- NOTE | 2024-08-06 18:50 | DVHPN2 ---
Progress Note - Dictate Date Seen: Aug 06, 2024 Medical Necessity Reason Pt with a Central, PICC or Fol: Yes The following are medically ne: Central Line, Barron Catheter Reason for barron catheter: Strict I&O Subjective Patient was seen and evaluated in follow up. No acute events overnight. Patient endorses feeling tired during dialysis treatment. No pain or discomfort. HHS and DME arranged. vital signs Vital Sign Date Time Temp Pulse Resp B/P (MAP) Pulse Ox O2 Delivery O2 Flow Rate FiO2 08/06/24 17:30 37.0 84 20 99 08/06/24 17:14 152/53 (86) 08/06/24 08:00 Nasal Cannula* 3 32 Total Intake and Output 08/05/24 08/05/24 08/06/24 15:00 23:00 07:00 Intake Total 1005 ml 105 ml Output Total 100 ml Balance 1005 ml 5 ml medications Current Medications Medications Dose Ordered Sig/Camacho Route Start Time Stop Time Status Last Admin Dose Admin Diagnostic Test (Pha) 1 strip Q6HR 07/21/24 18:00 08/06/24 12:00 1 STRIP Insulin Human Regular Q6HR SC 07/21/24 18:00 08/05/24 18:25 2 UNITS Dextrose 50 ml UD PRN IV 07/21/24 15:00 07/21/24 19:04 50 ML Lorazepam 0.25 mg Q4HP PRN IV 07/27/24 11:15 07/27/24 12:08 0.25 MG Albuterol 2.5 mg Q6HR NEB 07/31/24 12:00 08/06/24 06:49 2.5 MG Ipratropium [place] 0.5 mg Q6HR NEB 07/31/24 12:00 08/06/24 06:49 0.5 MG Hydralazine HCl 10 mg Q6HP PRN IV 07/31/24 13:30 08/06/24 11:56 10 MG Levofloxacin 250 mg Q48H PO 08/02/24 22:00 08/04/24 21:19 250 MG Megestrol Acetate 200 mg BID PO 08/02/24 11:00 08/05/24 21:45 200 MG Pantoprazole Sodium 40 mg DAILY@0600 PO 08/03/24 06:00 08/06/24 05:48 40 MG Heparin Sodium (Porcine) 5,000 units Q12HR SC 08/02/24 22:00 08/05/24 21:48 5,000 UNITS Lidocaine 1 patch DAILY TOP 08/03/24 10:00 08/05/24 10:31 1 PATCH Isosorbide Mononitrate 30 mg DAILY PO 08/04/24 10:00 08/05/24 10:32 30 MG Hydralazine HCl 10 mg Q8HR PO 08/03/24 22:00 08/06/24 14:00 10 MG Atorvastatin Calcium 10 mg HS PO 08/03/24 22:00 08/05/24 21:47 10 MG Acetaminophen 650 mg Q6HP PRN PO 08/03/24 21:45 08/05/24 21:45 650 MG Carvedilol 6.25 mg Q12HR PO 08/06/24 22:00 Amlodipine Besylate 5 mg DAILY PO 08/07/24 10:00 objective Vitals and nursing notes reviewed. General appearance: In no acute distress. HEENT: Normocephalic, atraumatic. Chest: On SpO2 with 3L NC. No wheezes or rales. Normal effort. Heart: Regular rate; no murmur or gallop Abdomen: Soft, nontender, nondistended Musculoskeletal: No clubbing, no cyanosis, trace lower extremity edema Skin: Warm, moist. Neurological: No focal deficits. laboratory and microbiology Laboratory Tests 08/06/24 11:00 08/02/24 08:45 Test 08/02/24 08:45 Range/Units Serum Glucose 73 L 74-106 mg/dL Problem List Metabolic encephalopathy secondary to sepsis Acute respiratory failure Cardiorenal syndrome type 3 ESRD on hemodialysis Pericardial effusion Anasarca NSTEMI Transaminitis Normocytic anemia Diabetes - uncontrolled (hemoglobin A1c 7.1%) Hypertension Dyslipidemia Assessment/Plan Resume outpatient dialysis with [facility] on 08/08/24. Last dialyzed today. Cleared for discharge from Nephrology standpoint. Dietary Evaluation Review Comments: 1.Consider EN regime nepro@20ml/hr to provide 850 Kcal 39g Protein 349ml Free Water to meet nutritional needs 2.Consider PN regime NPO > 5 days Expected Outcomes/Goals: >75% nutritional intake, labs WNL Plan discussed with: Patient, Other (RN) JOSE LUIS SMITH DO Aug 06, 2024 18:50
[2024-08-06] MEDS ORDERED: EPOETIN ALFA-EPBX 10,000 UNIT/1ML VIAL SC ONE (21:00)
--- NOTE | 2024-08-06 21:20 | DVHPN2 ---
Progress Note - Dictate Date Seen: Aug 06, 2024 Medical Necessity Reason Pt with a Central, PICC or Fol: Yes The following are medically ne: Central Line, Barron Catheter Reason for barron catheter: Strict I&O Subjective Patient was seen and evaluated in follow up. Patient has no new complaints at this time. Patient denies any cardiac symptoms. Patient is cardiac stable for discharge Telemetry reviewed. vital signs Vital Sign Date Time Temp Pulse Resp B/P (MAP) Pulse Ox O2 Delivery O2 Flow Rate FiO2 08/06/24 17:30 37.0 84 20 99 08/06/24 17:14 152/53 (86) 08/06/24 08:00 Nasal Cannula* 3 32 Total Intake and Output 08/05/24 08/05/24 08/06/24 15:00 23:00 07:00 Intake Total 1005 ml 105 ml Output Total 100 ml Balance 1005 ml 5 ml objective GENERAL: Ill appearing, intubated on ventilator. LUNGS: Decreased breath sounds. CARDIOVASCULAR: Heart sounds are good. ABDOMEN: Soft. EXT: BLE edema. laboratory and microbiology Laboratory Tests 08/06/24 11:00 08/02/24 08:45 Test 08/02/24 08:45 Range/Units Serum Glucose 73 L 74-106 mg/dL Problem List NSTEMI likely type 2 [place]. Acute on chronic HFpEF. Acute hypoxic respiratory failure. Pericardial effusion, recurrent. Sepsis, suspected pneumonia. HTN. HLD. 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 ESRD on HD. HLD. Gram-negative bacteremia. Diabetes mellitus type 2. Assessment/Plan Continued all current supportive medical care. Coreg. IV antibiotics as ordered. IV Hydralazine for SBP >160. GI prophylactics. Additional plan as per the hospital course. Dietary Evaluation Review Comments: 1.Consider EN regime nepro@20ml/hr to provide 850 Kcal 39g Protein 349ml Free Water to meet nutritional needs 2.Consider PN regime NPO > 5 days Expected Outcomes/Goals: >75% nutritional intake, labs WNL Plan discussed with: Patient DEWEY SMITH MD Aug 06, 2024 21:20
[2024-08-06] MEDS ORDERED: CARVEDILOL 3.125 MG TAB PO SCH (22:00)
[2024-08-07] MEDS ORDERED: amLODIPine BESYLATE 5 MG TAB PO SCH (10:00)
== END 2024-08-06 18:10 | disposition home or self-care (01) | DRG 870 ==
LOC: EDBD 20:45 → ER 20:45 → OVERFLOW 23:35 → ICU WEST 23:39 → TELE-EAST 08-01 14:55
PROVIDERS: ADMIT Internal Medicine; ATTEND Internal Medicine
PROC: 5A1955Z Respiratory Ventilation, Greater than 96 Consecutive Hours (ICD-10-PCS; principal; 2024-07-20)
PROC: 0BH17EZ Insertion of Endotracheal Airway into Trachea, Via Natural or Artificial Opening (ICD-10-PCS; 2024-07-20)
PROC: 5A1D70Z Performance of Urinary Filtration, Intermittent, Less than 6 Hours Per Day (ICD-10-PCS; 2024-07-22)
PROC: 5A1D70Z Performance of Urinary Filtration, Intermittent, Less than 6 Hours Per Day (ICD-10-PCS; 2024-07-24)
PROC: 5A1D70Z Performance of Urinary Filtration, Intermittent, Less than 6 Hours Per Day (ICD-10-PCS; 2024-07-26)
PROC: 5A1D70Z Performance of Urinary Filtration, Intermittent, Less than 6 Hours Per Day (ICD-10-PCS; 2024-07-27)
PROC: 5A1D70Z Performance of Urinary Filtration, Intermittent, Less than 6 Hours Per Day (ICD-10-PCS; 2024-07-28)
PROC: 5A1D70Z Performance of Urinary Filtration, Intermittent, Less than 6 Hours Per Day (ICD-10-PCS; 2024-07-30)
PROC: 5A1D70Z Performance of Urinary Filtration, Intermittent, Less than 6 Hours Per Day (ICD-10-PCS; 2024-08-01)
PROC: 5A1D70Z Performance of Urinary Filtration, Intermittent, Less than 6 Hours Per Day (ICD-10-PCS; 2024-08-03)
DX: A41.59 Other Gram-negative sepsis (principal); G93.41 Metabolic encephalopathy; J96.21 Acute and chronic respiratory failure with hypoxia; N18.6 End stage renal disease; I21.A1 Myocardial infarction type 2; J15.69 Pneumonia due to other Gram-negative bacteria; R65.21 Severe sepsis with septic shock; J15.9 Unspecified bacterial pneumonia; I50.21 Acute systolic (congestive) heart failure; J44.0 Chronic obstructive pulmonary disease with (acute) lower respiratory infection; I13.2 Hypertensive heart and chronic kidney disease with heart failure and with stage 5 chronic kidney disease, or end stage renal disease; I31.39 Other pericardial effusion (noninflammatory); E87.20 Acidosis, unspecified; G93.1 Anoxic brain damage, not elsewhere classified; N39.0 Urinary tract infection, site not specified; R18.8 Other ascites; J44.1 Chronic obstructive pulmonary disease with (acute) exacerbation; G93.49 Other encephalopathy; E87.4 Mixed disorder of acid-base balance; E87.1 Hypo-osmolality and hyponatremia; E46 Unspecified protein-calorie malnutrition; I31.4 Cardiac tamponade; B19.9 Unspecified viral hepatitis without hepatic coma; K83.09 Other cholangitis; E11.22 Type 2 diabetes mellitus with diabetic chronic kidney disease; Z20.822 Contact with and (suspected) exposure to COVID-19; Z99.2 Dependence on renal dialysis; R74.01 Elevation of levels of liver transaminase levels; E11.42 Type 2 diabetes mellitus with diabetic polyneuropathy; E78.5 Hyperlipidemia, unspecified; H57.02 Anisocoria; I45.10 Unspecified right bundle-branch block; D69.6 Thrombocytopenia, unspecified; L98.429 Non-pressure chronic ulcer of back with unspecified severity; D63.1 Anemia in chronic kidney disease; E88.9 Metabolic disorder, unspecified; Z88.5 Allergy status to narcotic agent; Z79.899 Other long term (current) drug therapy; Z83.3 Family history of diabetes mellitus; Z98.891 History of uterine scar from previous surgery; Z68.29 Body mass index [BMI] 29.0-29.9, adult; Z79.4 Long term (current) use of insulin
CPT/HCPCS: 31500; 36415; 36556; 36600; 70450; 71045; 71260; 74177; 76705; 80048; 80053; 80061; 80202; 80307; 80320; 81001; 82565; 82805; 82962; 83036; 83605; 83735; 83880; 84100; 84132; 84484; 85007; 85025; 85027; 85610; 85730; 86850; 86900; 86901; 87040; 87070; 87077; 87081; 87086; 87186; 87205; 87340; 87426; 87804; 90935; 92610; 93005; 93306; 93886; 93925; 94002; 94003; 94640; 96361; 96365; 96368; 97110; 97163; 97530; 99291; G0378; J1815; J2470; J2543; J7060; P9047

== ENCOUNTER 2024-09-07 18:08 | Emergency (ER) | payer OTHER, MEDICAID ==
[~2024-09-07] VITALS: Ht 152.4 cm; Wt 45.5 kg
[~2024-09-07 18:08] MED LIST changes: +ASPI1TAB19 PO; +ATOR20TA50 PO; +HYDR-2792 PO; +ISO60SRT PO; +LEVO500T91 PO; +PANT40T PO
--- NOTE | 2024-09-07 18:42 | ED.PDOC ---
Musculoskeletal HPI Comments 69-year-old female came to ER via EMS for malfunctioning dialysis fistula. Patient has history of hypertension, diabetes, CHF, mi, COPD, ESRD on dialysis. Patient just finished her dialysis session earlier today, as the needle was being pulled out of her left arm, her fistula started bleeding profusely despite attempts of dialysis staff to apply pressure on the site. Chief Complaint: Upper Extremity Time Seen by MD: 18:41 Primary Care Provider: UNKNOWN Reviewed Notes: Nurses Notes Allergies: Coded Allergies: Hydrocodone (Verified Allergy, Severe, 04/22/24) Morphine (Verified Allergy, Severe, 04/22/24) Home Meds Active Scripts Aspirin (Aspirin) 81 Mg Tab, 81 MG PO DAILY for 90 Days, #90 TAB Prov:DAGMAR DEL CASTILLO 08/03/24 Pantoprazole Sodium Sesquihydr (Pantoprazole Sodium) 40 Mg Tab, 20 MG PO DAILY for 30 Days, #30 TAB Prov:DAGMAR DEL CASTILLO 08/03/24 Atorvastatin Calcium (ATORVASTATIN CALCIUM) 20 Mg Tab, 1 TAB PO DAILY, #30 TAB 0 Refills Prov:DAGMAR DEL CASTILLO 08/03/24 Hydralazine Hcl (Hydralazine Hcl) 10 Mg Tab, 10 MG PO TID for 30 Days, #90 TAB Prov:DAGMAR DEL CASTILLO 08/03/24 Isosorbide Mononitrate (Isosorbide Mononitrate ER) 60 Mg Tab, 30 MG PO DAILY for 30 Days, #30 TAB Prov:DAGMAR DEL CASTILLO 08/03/24 Levofloxacin Hemihydrate (LEVOFLOXACIN) 500 Mg Tab, 250 MG PO DAILY for 5 Days, #5 TAB Prov:DAGMAR DEL CASTILLO 08/03/24 Yeast (S. Boulardii)(S. Cerevi (Florastor) 250 Mg Cap, 250 MG PO BID for 30 Days, #60 CAP Prov:FRAN SAMPSON MD 05/04/24 Carvedilol (COREG) 3.125 Mg Tab, 3.125 MG PO Q12HR for 60 Days, #120 TAB Prov:TASNEEM DE JESUS MD 01/08/17 Spironolactone (Aldactone) 25 Mg Tab, 25 MG PO DAILY, #30 TAB Prov:TASNEEM DE JESUS MD 9/2/17 Cholecalciferol (Vitamin D3) 1,000 Unit Tab, 2000 UNIT PO DAILY, #30 TAB Prov:TASNEEM DE JESUS MD 01/08/17 Captopril (Captopril) 12.5 Mg Tab, 12.5 MG PO Q8HR, #90 TAB Prov:TASNEEM DE JESUS MD 01/08/17 Information Source: Patient, Emergency Med Personnel Mode of Arrival: EMS Location: Left Extremity Location: Arm Timing: Minutes Prehospital treatment: None Severity: Moderate Able to Move Extremity: Yes Bear Weight: Limited Pain: Moderate Mechanism: Spontaneous Circumstances: Spontaneous Onset of Symptoms: Spontaneous Associated signs and symptoms: Arm pain (left) Past Medical History PAST MEDICAL HISTORY: Anemia, CHF, COPD, DM, ESRD, High Lipids, HTN, NM Surgical History (Other): 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 Hx Family History Family History: Reviewed,noncontributory to illness Social History Smoker: Non-Smoker Alcohol: Denies ETOH Use Drugs: Denies Drug Use Lives In: Home Constitutional: denies: chills, diaphoresis, fatigue, fever, malaise, sweats, weakness, others EENTM: denies: blurred vision, double vision, ear bleeding, ear discharge, ear drainage, ear pain, ear ringing, eye pain, eye redness, hearing loss, mouth pain, mouth swelling, nasal discharge, nose bleeding, nose congestion, nose pain, photophobia, tearing, throat pain, throat swelling, voice changes, others Respiratory: denies: cough, hemoptysis, orthopnea, SOB at rest, shortness of breath, SOB with excertion, stridor, wheezing, others Cardiovascular: denies: chest pain, dizzy spells, diaphoresis, Dyspnea on exertion, edema, irregular heart beat, left arm pain, lightheadedness, palpitations, PND, syncope, others Gastrointestinal: denies: abdomen distended, abdominal pain, blood streaked bowels, constipated, diarrhea, dysphagia, difficulty swallowing, hematemesis, melena, nausea, poor appetite, poor fluid intake, rectal bleeding, rectal pain, vomiting, others Genitourinary: denies: abnormal vagina bleeding, burning, dyspareunia, dysuria, flank pain, frequency, hematuria, incontinence, pain, , vagina discharge, urgency, others Neurological: denies: dizziness, fainting, headache, left sided numbness, left sided weakness, numbness, paresthesia, pre-existing deficit, right sided numbness, right sided weakness, seizure, speech problems, tingling, tremors, weakness, others Musculoskeletal: denies: back pain, gout, joint pain, joint swelling, muscle pain, muscle stiffness, neck pain, others Integumetry: reports: others (Bleeding dialysis fistula left arm); denies: bruises, change in color, change in hair/nails, dryness, laceration, lesions, lumps, rash, wounds Allergic/Immunocompromised: denies: Difficulty Healing, Frequent Infections, Hives, Itching, others Hematologic/Lymphatic: denies: anemia, blood clots, easy bleeding, easy bruising, swollen glands, others Endocrine: denies: excessive hunger, excessive sweating, excessive thirst, excessive urination, flushing, intolerance to cold, intolerance to heat, unexplained weight gain, unexplained weight loss, others Psychiatric: denies: anxiety, bipolar disorder, depression, hopeless, panic disorder, schizophrenia, sleepless, suicidal, others Physical Exam General Appearance: No Apparent Distress, Normal HEENT: Normal ENT Inspection, Pharynx Normal, TMs Normal Neck: Full Range of Motion, Non-Tender, Normal, Normal Inspection Respiratory: Chest Non-Tender, Lungs Clear, No Accessory Muscle Use, No Respiratory Distress, Normal Breath Sounds Cardiovascular: No Edema, No JVD, No Murmur, No Gallop, Normal Peripheral Pulses, Regular Rate/Rhythm Breast Exam: Deferred Gastrointestinal: No Organomegaly, Non Tender, No Pulsatile Mass, Normal Bowel Sounds, Soft Genitalia: Deferred Pelvic: Deferred Rectal: Deferred Extremities: No calf tenderness, Normal capillary refill, Normal inspection, Normal range of motion, Non-tender, No pedal edema Musculoskeletal : Apperance: Normal Neurologic: Alert, supervisor litharge II-XII nml as Tested, No Motor Deficits, Normal Affect, Normal Mood, No Sensory Deficits Cerebellar Function: Normal Reflexes: Normal Skin: Dry, Normal Color, Warm Lymphatic: No Adenopathy Was a procedure done? Was a procedure done?: No Differential Diagnosis EXT Differential Diagnosis: Cellulitis, Laceration, Other (Malfunctioning dialysis fistula) X-Ray, Labs, Meds, VS Vital Signs Date Time Temp Pulse Resp B/P (MAP) Pulse Ox O2 Delivery O2 Flow Rate FiO2 09/07/24 18:32 97.6 85 18 181/80 (113) 98 97.6 Time of 1ST Reevaluation: 18:33 Reevaluation 1ST: Unchanged Patient Education/Counseling: Diagnosis, Treatment Family Education/Counseling: No Family Present Departure 1 Departure Time of Disposition: 22:44 (After pressure dressing is applied and left on for awhile patient's bleeding stopped. We will discharge patient home with outpatient follow up) Impression: Primary Impression: Hemorrhage of arteriovenous fistula Qualified Codes: T82.838A - Hemorrhage due to vascular prosthetic devices, implants and grafts, initial encounter Disposition: HOME / SELF CARE / HOMELESS Condition: Stable Additional Instructions: You should continue to go to dialysis and follow up with the regular doctors. Discharged With: Self Critical Care Note Critical Care Time?: No Stability Stability form required: No Heart Score Heart Score: Heart Score Response (Comments) Value History N/A 0 EKG N/A 0 Age N/A 0 Risk Factors N/A 0 Troponin N/A 0 Total 0 I personally scribed for LIANA ZACARIAS MD ([email or web address]) on 09/07/24 at 18:42. Electronically submitted by Yimi Samano ([email or web address]). LIANA ZACARIAS MD September 07, 2024 18:42
[2024-09-07 22:45] VITALS: BP 154/80; PULSE 85; RESP 18; TEMP 98; O2SAT 98
== END 2024-09-07 23:12 | disposition home or self-care (01) ==
LOC: EDBD 18:08 → ER 18:08
DX: T82.838A Hemorrhage due to vascular prosthetic devices, implants and grafts, initial encounter (principal); I13.2 Hypertensive heart and chronic kidney disease with heart failure and with stage 5 chronic kidney disease, or end stage renal disease; E11.22 Type 2 diabetes mellitus with diabetic chronic kidney disease; N18.6 End stage renal disease; I50.89 Other heart failure; J44.9 Chronic obstructive pulmonary disease, unspecified; E78.5 Hyperlipidemia, unspecified; Z88.6 Allergy status to analgesic agent; Z79.899 Other long term (current) drug therapy; X58.XXXA Exposure to other specified factors, initial encounter; Y93.89 Activity, other specified; Y92.89 Other specified places as the place of occurrence of the external cause; Y99.8 Other external cause status